=== PATIENT | male | born 1955 | race Caucasian/White ===

== ENCOUNTER 2023-07-24 13:51 | Inpatient (IN) | payer MEDICARE, OTHER ==
--- NOTE | 2023-07-24 14:16 | ED ---
General Adult HPI - General Chief complaint: Arrhythmia/Palpitations Stated complaint: Heart Palpitations Time Seen by Provider: 07/24/23 14:00 Source: patient, RN notes reviewed, old records reviewed Mode of arrival: ambulatory Limitations: no limitations - History of Present Illness Initial comments: This is a 67-year-old male with a past medical history significant for hemodialysis. Patient also has a history of atrial flutter. Patient comes in t [facility] because he went to dialysis when he got home his heart rate was fast and he was feeling little bit short of breath. Patient took his medicines and heart rate did not come down so he came to the emergency department. Patient states he still feels his heart racing and as well has some shortness of breath but patient has any chest pain. Patient denies any abdominal pain. Patient states he does have diarrhea and has had diarrhea for the last for 5 days. Patient denies any headache patient denies numbness or weakness. Patient Nuys lightheadedness or dizziness. - Related Data Home Medications Medication Instructions Recorded Confirmed Aspirin EC [Ecotrin Low Dose] 81 mg PO DAILY 07/24/23 07/24/23 Atorvastatin [Lipitor] 10 mg PO HS 07/24/23 07/24/23 Cyanocobalamin [Vitamin B-12] 500 mcg PO DAILY 07/24/23 07/24/23 Gabapentin [Neurontin] 200 mg PO TID 07/24/23 07/24/23 Omeprazole [PriLOSEC] 20 mg PO BID 07/24/23 07/24/23 Patiromer Calcium Sorbitex 1 packet PO SUTUTHSA 07/24/23 07/24/23 [Veltassa] Sevelamer Carbonate 1,600 mg PO TID 07/24/23 07/24/23 Sodium Bicarbonate Tab 650 mg PO BID 07/24/23 07/24/23 Tamsulosin [Flomax] 0.4 mg PO HS 07/24/23 07/24/23 dilTIAZem HCL [dilTIAZem HCL 24Hr 300 mg PO DAILY@1630 07/24/23 07/24/23 ER (Tiazac)] Allergies Allergy/AdvReac Type Severity Reaction Status Date / Time No Known Allergies Allergy Verified 07/24/23 14:44 Review of Systems ROS Statement: Those systems with pertinent positive or pertinent negative responses have been documented in the HPI. ROS Other: All systems not noted in ROS Statement are negative. Past Medical History Past Medical History: Dialysis History of Any Multi-Drug Resistant Organisms: None Reported Past Surgical History: No Surgical Hx Reported Past Psychological History: No Psychological Hx Reported Smoking Status: Current every day smoker Past Alcohol Use History: None Reported Past Drug Use History: None Reported General Exam - General Exam Comments Initial Comments: GENERAL: Patient is well-developed and well-nourished. Patient is nontoxic and well- hydrated and is in mild distress. ENT: Neck is soft and supple. No significant lymphadenopathy is noted. Oropharynx i s clear. Moist mucous membranes. Neck has full range of motion without eliciting any pain. EYES: The sclera were anicteric and conjunctiva were pink and moist. Extraocular movements were intact and pupils were equal round and reactive to light. Eyelids were unremarkable. PULMONARY: Unlabored respirations. Good breath sounds bilaterally. No audible rales rhonchi or wheezing was noted. CARDIOVASCULAR: Patient is tachycardic at about 160 beats a minute ABDOMEN: Soft and nontender with normal bowel sounds. SKIN: Skin is clear with no lesions or rashes and otherwise unremarkable. NEUROLOGIC: Patient is alert and oriented x3. Cranial nerves II through XII are grossly intact. Motor and sensory are also intact. Normal speech, volume and content. Symmetrical smile. MUSCULOSKELETAL: Normal extremities with adequate strength and full range of motion. No lower extremity swelling or edema. No calf tenderness. LYMPHATICS: No significant lymphadenopathy is noted PSYCHIATRIC: Normal psychiatric evaluation. Limitations: no limitations Course Vital Signs 07/24/23 07/24/23 07/24/23 13:53 14:33 14:58 Temperature 98.5 F Pulse Rate 92 160 H 160 H Respiratory 24 18 18 Rate Blood Pressure 110/75 113/95 122/95 O2 Sat by Pulse 99 95 95 Oximetry 07/24/23 15:07 Temperature Pulse Rate 130 H Respiratory 18 Rate Blood Pressure 97/75 O2 Sat by Pulse Oximetry Medical Decision Making - Medical Decision Making EKG is interpreted by myself EKG shows atrial flutter 160 bpm QRS is 88 QT interval is 258 QTc is 347. Patient's EKG shows ST segment elevation and aVR Was pt. sent in by a medical professional or institution (, PA, BOND CLERK, urgent care, hospital, or fci...) When possible be specific @ -No Did you speak to anyone other than the patient for history (EMS, parent, family, police, friend...)? What history was obtained from this source @ -Patient's sister gives almost all of the history Did you review nursing and triage notes (agree or disagree)? Why? @ -I reviewed and agree with nursing and triage notes Were old charts reviewed (outside hosp., previous admission, EMS record, old EK G, old radiological studies, urgent care reports/EKG's, fci records)? Report findings @ -No Differential Diagnosis (chest pain, altered mental status, abdominal pain women, abdominal pain men, vaginal bleeding, weakness, fever, dyspnea, syncope, headache, dizziness, GI bleed, back pain, seizure, CVA, palpatations, mental health, musculoskeletal)? @ -Differential Palpitations Ventricular arrhythmias, atrial arrhythmias, myocardial infarction, anemia, thyrotoxicosis, electrolyte imbalance, hypokalemia, pulmonary embolism, pulmonary disease, drugs, alcohol, anxiety, stress.... This is not meant to be an all-inclusive list. EKG interpreted by me (3pts min.). @ -As above X-rays interpreted by me (1pt min.). @ -Chest x-ray shows some mediastinal widening possible adenopathy mass adherent CT interpreted by me (1pt min.). @ -None done U/S interpreted by me (1pt. min.). @ -None done What testing was considered but not performed or refused? (CT, X-rays, U/S, labs)? Why? @ -None What meds were considered but not given or refused? Why? @ -None Did you discuss the management of the patient with other professionals (professionals i.e. , PA, BOND CLERK, lab, RT, psych nurse, neonatal social worker, hvac specialist, teacher, seismology technical officer, sample case porter)? Give summary @ -I spoke with sound physicians and physicians agreed to admit the patient Was smoking cessation discussed for >3mins.? @ -No Was critical care preformed (if so, how long)? @ -35 minutes Were there social determinants of health that impacted care today? How? (Homelessness, low income, unemployed, alcoholism, drug addiction, transportat ion, low edu. Level, literacy, decrease access to med. care, senior care, rehab)? @ -No Was there de-escalation of care discussed even if they declined (Discuss DNR or withdrawal of care, Hospice)? DNR status @ -No What co-morbidities impacted this encounter? (DM, HTN, Smoking, COPD, CAD, Cancer, CVA, ARF, Chemo, Hep., AIDS, mental health diagnosis, sleep apnea, morbid obesity)? @ -None Was patient admitted / discharged? Hospital course, mention meds given and route, prescriptions, significant lab abnormalities, going to OR and other pertinent info. @ -Patient was started on a Cardizem drip and also started on heparin. Patient's heart rate was 160 came down to about 120 after a bolus and a drip for about an hour. Patient was feeling better. Patient is going to be admitted to [facility] physicians and I will consult cardiology Undiagnosed new problem with uncertain prognosis? @ -No Drug Therapy requiring intensive monitoring for toxicity (Heparin, Nitro, Insulin, Cardizem)? @ -No Were any procedures done? @ -No Diagnosis/symptom? @ -Atrial flutter with rapid ventricular response Acute, or Chronic, or Acute on Chronic? @ -Acute Uncomplicated (without systemic symptoms) or Complicated (systemic symptoms)? @ -Complicated Side effects of treatment? @ -No Exacerbation, Progression, or Severe Exacerbation? @ -No Poses a threat to life or bodily function? How? (Chest pain, [place], [place], pneumonia, PE, COPD, DKA, ARF, appy, cholecystitis, CVA, Diverticulitis, Homicidal, Suicidal, threat to staff... and all critical care pts) @ -Yes this can lead to poor perfusion and endorgan dysfunction - Lab Data Result diagrams: 07/24/23 14:14 07/24/23 14:14 Lab Results 07/24/23 07/24/23 07/24/23 Range/Units 14:14 14:14 14:14 WBC 8.4 (3.8-10.6) k/uL RBC 3.93 L (4.30-5.90) m/uL Hgb 11.6 L (13.0-17.5) gm/dL Hct 34.1 L (39.0-53.0) % MCV 86.9 (80.0-100.0) fL MCH 29.5 (25.0-35.0) pg MCHC 34.0 (31.0-37.0) g/dL RDW 14.2 (11.5-15.5) % Plt Count 261 (150-450) k/uL MPV 7.1 Neutrophils % 73 % Lymphocytes % 14 % Monocytes % 10 % Eosinophils % 1 % Basophils % 0 % Neutrophils # 6.1 (1.3-7.7) k/uL Lymphocytes # 1.2 (1.0-4.8) k/uL Monocytes # 0.9 (0-1.0) k/uL Eosinophils # 0.1 (0-0.7) k/uL Basophils # 0.0 (0-0.2) k/uL PT (10.0-12.5) sec INR (<1.2) APTT (22.0-30.0) sec Sodium 138 (137-145) mmol/L Potassium 3.9 (3.5-5.1) mmol/L Chloride 98 (98-107) mmol/L Carbon Dioxide 28 (22-30) mmol/L Anion Gap 12 mmol/L BUN 43 H (9-20) mg/dL Creatinine 5.96 H (0.66-1.25) mg/dL Est GFR (CKD-EPI)AfAm 11 (>60 ml/min/1.73 sqM) Est GFR (CKD-EPI)NonAf 9 (>60 ml/min/1.73 sqM) Glucose 117 H (74-99) mg/dL Calcium 8.1 L (8.4-10.2) mg/dL Magnesium 1.8 (1.6-2.3) mg/dL Total Bilirubin 0.5 (0.2-1.3) mg/dL AST 28 (17-59) U/L ALT 24 (4-49) U/L Alkaline Phosphatase 107 (38-126) U/L Troponin I 0.072 H* (0.000-0.034) ng/mL Total Protein 6.7 (6.3-8.2) g/dL Albumin 3.7 (3.5-5.0) g/dL 07/24/23 Range/Units 14:56 WBC (3.8-10.6) k/uL RBC (4.30-5.90) m/uL Hgb (13.0-17.5) gm/dL Hct (39.0-53.0) % MCV (80.0-100.0) fL MCH (25.0-35.0) pg MCHC (31.0-37.0) g/dL RDW (11.5-15.5) % Plt Count (150-450) k/uL MPV Neutrophils % % Lymphocytes % % Monocytes % % Eosinophils % % Basophils % % Neutrophils # (1.3-7.7) k/uL Lymphocytes # (1.0-4.8) k/uL Monocytes # (0-1.0) k/uL Eosinophils # (0-0.7) k/uL Basophils # (0-0.2) k/uL PT 10.2 (10.0-12.5) sec INR 0.9 (<1.2) APTT 25.8 (22.0-30.0) sec Sodium (137-145) mmol/L Potassium (3.5-5.1) mmol/L Chloride (98-107) mmol/L Carbon Dioxide (22-30) mmol/L Anion Gap mmol/L BUN (9-20) mg/dL Creatinine (0.66-1.25) mg/dL Est GFR (CKD-EPI)AfAm (>60 ml/min/1.73 sqM) Est GFR (CKD-EPI)NonAf (>60 ml/min/1.73 sqM) Glucose (74-99) mg/dL Calcium (8.4-10.2) mg/dL Magnesium (1.6-2.3) mg/dL Total Bilirubin (0.2-1.3) mg/dL AST (17-59) U/L ALT (4-49) U/L Alkaline Phosphatase (38-126) U/L Troponin I (0.000-0.034) ng/mL Total Protein (6.3-8.2) g/dL Albumin (3.5-5.0) g/dL Critical Care Time Critical Care Time: Yes Total Critical Care Time: 35 Disposition Clinical Impression: Atrial flutter with rapid ventricular response, Elevated troponin Disposition: ADMITTED IP TO THIS HOSP Referrals: Maddie Snyder MD [Primary Care Provider] - 1-2 days Time of Disposition: 15:18
[2023-07-24] MEDS: DILTIAZEM 125 MG in SODIUM CHLORIDE 0.9% 100 ML IV SCH (14:26)
[2023-07-24] MEDS: DILTIAZEM DRIP BOLUS FROM BAG 1 MG SOLN IV ONE (14:27)
[2023-07-24] MEDS: SODIUM CHLORIDE 0.9% 500 ML 500 ML IV STA (14:32)
--- NOTE | 2023-07-24 14:33 | XR ---
EXAMINATION TYPE: XR chest 2V DATE OF EXAM: 07/24/2023 COMPARISON: NONE TECHNIQUE: PA and lateral views submitted. HISTORY: Dysrhythmia and cough FINDINGS: The lungs are clear and there is no pneumothorax, pleural effusion, or focal pneumonia. Heart size normal and no overt failure. Osseous structures demonstrate hypertrophic and degenerative changes of the spine. Prominence of the upper right mediastinum. Coarsened interstitium. IMPRESSION: 1. Correlate for bronchitis or mild interstitial pneumonitis. 2. Prominent right upper mediastinum underlying mass or adenopathy or aortic aneurysm in the differen tial diagnosis. Recommend short-term follow-up CT chest. Process.
[2023-07-24 14:34] LABS: Basophils % (A) 0 %; Eosinophils # (A) 0.1 k/uL (0-0.7); Eosinophils % (A) 1 %; HCT 34.1 % (39.0-53.0); HGB 11.6 gm/dL (13.0-17.5); Lymphocytes # (A) 1.2 k/uL (1.0-4.8); Lymphocytes % (A) 14 %; MCH 29.5 pg (25.0-35.0); MCV 86.9 fL (80.0-100.0); Mean Platelet Volume 7.1; Monocytes # (A) 0.9 k/uL (0-1.0); Monocytes % (A) 10 %; Neutrophils # (A) 6.1 k/uL (1.3-7.7); Neutrophils % (A) 73 %; Platelet Count 261 k/uL (150-450); RBC 3.93 m/uL (4.30-5.90); RDW 14.2 % (11.5-15.5); WBC 8.4 k/uL (3.8-10.6)
[2023-07-24] MEDS: HEPARIN SODIUM 1,000 UN/ML (10ML VL) IV ONE (14:49)
[2023-07-24 14:51] LABS: ALT 24 U/L (4-49); AST 28 U/L (17-59); African American GFR (CKD) 11 (>60 ml/min/1.73 sqM); Albumin 3.7 g/dL (3.5-5.0); Alkaline Phosphatase 107 U/L (38-126); Anion Gap 12 mmol/L; Blood Urea Nitrogen 43 mg/dL (9-20); Calcium 8.1 mg/dL (8.4-10.2); Carbon Dioxide 28 mmol/L (22-30); Chloride 98 mmol/L (98-107); Glucose 117 mg/dL (74-99); Magnesium 1.8 mg/dL (1.6-2.3); Non-African American GFR(CKD) 9 (>60 ml/min/1.73 sqM); Potassium 3.9 mmol/L (3.5-5.1); Sodium 138 mmol/L (137-145); Total Bilirubin 0.5 mg/dL (0.2-1.3); Total Protein 6.7 g/dL (6.3-8.2)
[2023-07-24] MEDS: HEPARIN SOD,PORK IN 0.45% NACL 25,000 UNIT in 0.45% NACL 1 250ML.BAG IV SCH (14:51)
[2023-07-24 15:14] LABS: INR 0.9 (<1.2); Partial Thromboplastin Time 25.8 sec (22.0-30.0); Prothrombin Time 10.2 sec (10.0-12.5)
[2023-07-24] MEDS ORDERED: NITROGLYCERIN SL TABS 0.4 MG TAB SUBLINGUAL PRN (15:18)
[2023-07-24] MEDS ORDERED: DILTIAZEM 5 MG/ML 5 ML VIAL IVP STA (16:54)
[2023-07-24] MEDS: DILTIAZEM DRIP BOLUS FROM BAG 1 MG SOLN IV STA (17:00)
--- NOTE | 2023-07-24 17:11 | P.HPIM ---
History of Present Illness H&P Date: 07/24/23 67 year old M with PMH of ESRD, A-Fib not on AC, peripheral neuropathy, BPH, GERD, HLD presents to the ED. Went to HD today, felt SOB with palpitations, found to be tachycardic, session terminated one hour early, sent home on a bus. Sister Lizbeth noted he was feeling unwell and called EMS. He does report diarrhea that started last Monday. He denies any chest pain or lightheadedness. 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 Recently had an Echo done in June. Plans to undergo EGD and C-scope in September. In the ED he underwent extensive evaluation. BP 113/95, HR 160, RR 18, T 98.5F, 95% on RA. CBC, coag panel, CMP was done significant for Hg 11.6 Hct 34.1, BUN 43, Cr 5.96, glu 117, Ca 8.1. Mag 1.8. Troponin 0.072. EKG atrial flutter. TSH 0.723. CXR showed bronchitis or mild interstitial pneumonitis, prominent right upper mediastinum recommending short term follow up CT. Patient is admitted for Atrial flutter. General: non toxic, no distress, appears at stated age Derm: warm, dry Head: atraumatic, normocephalic, symmetric Eyes: EOMI, no lid lag, anicteric sclera Mouth: no lip lesion, mucus membranes moist Cardiovascular: S1S2 irregular, no murmur Lungs: Decreased BS bilateral, no rhonchi, no rales , no accessory muscle use Ext: no gross muscle atrophy, no edema, no contractures Neuro: no focal neuro deficits Psych: Alert, oriented, appropriate affect Based on my assessment of this patient, this patient meets a high complexity level of care. Patient has an acute diagnosis of atrial flutter that poses a threat to life or bodily function. Atrial flutter: Start Cardizem drip at 10 mg/hr and titrate. Started on heparin drip at 12 units/kg/hr. Telemetry monitoring. 2g Mag sulfate ordered. Cardiology consult. Troponin elevation: Likely demand ischemia. Trend Trop/EKG to rule out ACS. ASA 81 mg PO QD. Lipitor 10 mg PO QHS. Diarrhea: Obtain COVID 19 test. Supportive management. ESRD on HD MWF: Nephrology consult to initiate HD. CODE STATUS: FULL CODE. DVT Prophylaxis: Heparin drip GI Prophylaxis: Prilosec Designated medical POA if patient is not able to make medical decisions for themselves: Lizbeth (sister) I have reviewed the following lead consultant notes: ED. I have reviewed the results of the following tests: As above I have ordered the following tests: As above. I have discussed the care of this patient with the following independent historian: I have independently interpreted the following test below: EKG. I have discussed the management of this patient with the following physician: Past Medical History Past Medical History: Dialysis History of Any Multi-Drug Resistant Organisms: None Reported Past Surgical History: No Surgical Hx Reported Past Psychological History: No Psychological Hx Reported Smoking Status: Current every day smoker Past Alcohol Use History: None Reported Past Drug Use History: None Reported Medications and Allergies Home Medications Medication Instructions Recorded Confirmed Type Aspirin EC [Ecotrin Low Dose] 81 mg PO DAILY 07/24/23 07/24/23 History Atorvastatin [Lipitor] 10 mg PO HS 07/24/23 07/24/23 History Cyanocobalamin [Vitamin B-12] 500 mcg PO DAILY 07/24/23 07/24/23 History Gabapentin [Neurontin] 200 mg PO TID 07/24/23 07/24/23 History Omeprazole [PriLOSEC] 20 mg PO BID 07/24/23 07/24/23 History Patiromer Calcium Sorbitex 1 packet PO SUTUTHSA 07/24/23 07/24/23 History [Veltassa] Sevelamer Carbonate 1,600 mg PO TID 07/24/23 07/24/23 History Sodium Bicarbonate Tab 650 mg PO BID 07/24/23 07/24/23 History Tamsulosin [Flomax] 0.4 mg PO HS 07/24/23 07/24/23 History dilTIAZem HCL [dilTIAZem HCL 24Hr 300 mg PO DAILY@1630 07/24/23 07/24/23 History ER (Tiazac)] Allergies Allergy/AdvReac Type Severity Reaction Status Date / Time No Known Allergies Allergy Verified 07/24/23 14:44 Physical Exam Vitals: Vital Signs Temp Pulse Resp BP Pulse Ox 07/24/23 16:43 168 H 20 103/82 96 07/24/23 16:04 165 H 20 95/84 07/24/23 15:49 88 18 90/68 96 07/24/23 15:07 130 H 18 97/75 07/24/23 14:58 160 H 18 122/95 95 07/24/23 14:33 160 H 18 113/95 95 07/24/23 13:53 98.5 F 92 24 110/75 99 Intake and Output 07/24/23 07/24/23 07/24/23 06:59 14:59 22:59 Intake Total 10.25 Balance 10.25 Intake: Intake, IV Titration 10.25 Amount Diltiazem 125 mg In 10.25 Sodium Chloride 0.9% 100 ml @ 5 MG/HR 5 mls/hr IV .Q24H [facility] Rx#:[id number] Other: Weight 77.111 kg Results CBC & Chem 7: 07/24/23 14:14 07/24/23 14:14 Labs: Abnormal Lab Results - Last 24 Hours (Table) 07/24/23 07/24/23 07/24/23 Range/Units 14:14 14:14 14:14 RBC 3.93 L (4.30-5.90) m/uL Hgb 11.6 L (13.0-17.5) gm/dL Hct 34.1 L (39.0-53.0) % BUN 43 H (9-20) mg/dL Creatinine 5.96 H (0.66-1.25) mg/dL Glucose 117 H (74-99) mg/dL Calcium 8.1 L (8.4-10.2) mg/dL Troponin I 0.072 H* (0.000-0.034) ng/mL
[2023-07-24] MEDS: METOPROLOL TARTRATE 5 MG/5 ML VIAL IVP STA (18:48)
[2023-07-24] MEDS: MAGNESIUM SULFATE-D5W PMX 1 GM in DEXTROSE/WATER 1 100ML.BAG IVPB SCH (18:55)
[2023-07-24] MEDS: PANTOPRAZOLE 40 MG TABLET PO SCH (20:23)
[2023-07-24] MEDS: SODIUM BICARBONATE TAB 650 MG TAB PO SCH (20:23)
[2023-07-24] MEDS: ATORVASTATIN 10 MG TAB PO SCH (20:23)
[2023-07-24] MEDS: TAMSULOSIN 0.4 MG CAP.ER.24H PO SCH (20:24)
[2023-07-24] MEDS: SEVELAMER 800 MG TAB PO SCH (21:07)
[2023-07-24] MEDS: GABAPENTIN 100 MG CAP PO SCH (21:08)
[2023-07-24] MEDS: HEPARIN SODIUM 1,000 UN/ML (10ML VL) IV PRN (22:59)
[2023-07-25] MEDS: METOPROLOL TARTRATE 25 MG TAB PO STA (08:10)
[2023-07-25] MEDS: ASPIRIN 81 MG PO SCH (08:10)
[2023-07-25 08:32] LABS: Basophils % (A) 0 %; Eosinophils # (A) 0.1 k/uL (0-0.7); Eosinophils % (A) 1 %; HCT 32.6 % (39.0-53.0); HGB 10.8 gm/dL (13.0-17.5); Lymphocytes # (A) 1.3 k/uL (1.0-4.8); Lymphocytes % (A) 16 %; MCH 29.5 pg (25.0-35.0); MCHC 33.1 g/dL (31.0-37.0); MCV 89.1 fL (80.0-100.0); Mean Platelet Volume 7.7; Monocytes # (A) 0.7 k/uL (0-1.0); Monocytes % (A) 8 %; Neutrophils # (A) 5.7 k/uL (1.3-7.7); Neutrophils % (A) 71 %; Platelet Count 273 k/uL (150-450); RBC 3.66 m/uL (4.30-5.90); RDW 14.5 % (11.5-15.5)
[2023-07-25] MEDS ORDERED: ASPIRIN 325 MG TAB PO SCH (09:00)
[2023-07-25] MEDS: PATIROMER CALCIUM SORBITEX 8.4 GM PO SCH (09:23)
[2023-07-25] MEDS ORDERED: CAFFEINE CITRATE 60 MG/3 ML VIAL IV PRN (10:04)
[2023-07-25] MEDS ORDERED: REGADENOSON 0.4 MG/5 ML SYRINGE IV PRN (10:04)
[2023-07-25] MEDS ORDERED: AMINOPHYLLINE 500 MG/20 ML VIAL IV PRN (10:04)
[2023-07-25 10:42] LABS: African American GFR (CKD) 7 (>60 ml/min/1.73 sqM); Anion Gap 9 mmol/L; Blood Urea Nitrogen 50 mg/dL (9-20); Calcium 8.7 mg/dL (8.4-10.2); Carbon Dioxide 28 mmol/L (22-30); Chloride 102 mmol/L (98-107); Glucose 98 mg/dL (74-99); Non-African American GFR(CKD) 6 (>60 ml/min/1.73 sqM); Potassium 4.3 mmol/L (3.5-5.1); Sodium 139 mmol/L (137-145)
[2023-07-25] MEDS: DILTIAZEM CD 180 MG CAP.ER.24H PO SCH (10:47)
--- NOTE | 2023-07-25 10:53 | P.CRDCN ---
History of Present Illness History of present illness: HISTORY OF PRESENT ILLNESS: This is a 67-year-old male with a past medical history significant for end-stage renal disease on hemodialysis, hypertension, hyperlipidemia, and paroxysmal at rial fibrillation. Patient follows in the office with Dr. Blandon. We have been asked to see the patient in consultation for atrial flutter. Patient examined at the bedside in the ER. Patient states his sister sent him to the hospital. Patient does not remember why he came to the ER. He denied having any chest pain or pressure. He reports mild shortness of breath. He reports getting frequent headaches. Patient was found to be in atrial flutter with RVR. He was started on IV Heparin and IV Cardizem. He remains on Cardizem at 10mg/hr. He denies any issues of previous GI bleeding. He reports occasional rectal bleeding with bowel movements. According to cardiology office records, the patient previously saw a facing end trimmer at [facility] in [place]. The decision was made by his previous facing end trimmer not to anticoagulate him but instead placed him on a aspirin daily. He also apparently had a cardiac catheterization in the past which did not reveal any significant CAD however records of this are unavailable at this time. Additionally, the patient does have a family history of hypertrophic cardiomyopathy. His brother from hypertrophic cardiomyopathy and his sister also has it and is being followed by a physician out of [facility]. DIAGNOSTICS: - EKG reveals atrial flutter with RVR. - Chest xray correlate for bronchitis or mild interstitial pneumonitis. Prominent right upper mediastinum underlying mass or adenopathy or aortic aneurysm in the differential diagnosis. - Laboratory data: WBC 8.4. Hemoglobin 11.6. Platelet count 261. Sodium 138. Potassium 3.9. BUN 43. Creatinine 5.96. Magnesium 1.8. TSH 0.723. Troponin 0.072. 0.132. 0.205 - Current home cardiac medications include aspirin 81 mg daily, Cardizem 300 mg daily, and Lipitor 10 mg at night. REVIEW OF SYSTEMS: At the time of my exam: CONSTITUTIONAL: Denies fever or chills. HEENT: Denies blurred vision, vision changes, or eye pain. Denies hemoptysis CARDIOVASCULAR: Denies chest pain. Denies orthopnea. Denies PND. Denies palpitations RESPIRATORY: Denies shortness of breath. GASTROINTESTINAL: Denies abdominal pain. Denies nausea or vomiting. HEMATOLOGIC: Denies bleeding disorders. GENITOURINARY: Denies any blood in urine. SKIN: Denies pruitis. Denies rash. PHYSICAL EXAM: VITAL SIGNS: Reviewed. GENERAL: Well-developed in no acute distress. HEENT: Head is normocephalic. Pupils are equal, round. Sclerae anicteric. Mucous membranes of the mouth are moist. Neck supple. No JVD or thyromegaly LUNGS: Respirations even and unlabored. Lungs essentially clear to auscultation bilaterally. HEART: Tachycardic. Regular rate and rhythm. S1 and S2 heard. ABDOMEN: Soft. Nondistended. Nontender. EXTREMITIES: Normal range of motion. No clubbing or cyanosis. Peripheral pulses intact. No lower extremity edema NEUROLOGIC: Awake and alert. Oriented x 3. ASSESSMENT: New onset typical atrial flutter with RVR History of paroxysmal atrial fibrillation, not anticoagulated on an outpatient basis by decision of previous cardiology in [place] Abnormal troponins, Type I versus Type II DC End-stage renal disease on hemodialysis Hypertension Hyperlipidemia Family history of hypertrophic cardiomyopathy History of PFO, per patient PLAN: Obtain 2D echo to assess cardiac structure and function Resume oral Cardizem. Increase dose to 360mg. Wean off Cardizem infusion Continue IV Heparin for now. Will transition to oral anticoagulation pending Lexiscan results Discussed cardiac cath versus stress testing with patient. Patient to undergo Lexiscan stress today. Discussed with patients sister via phone. Obtain records of cardiac catheterization performed at [facility] Further recommendations pending patient course Nurse practitioner note has been reviewed by physician. Signing provider agrees with the documented findings, assessment, and plan of care documented by CONSUMER ANALYST as a scribe. Past Medical History Past Medical History: Dialysis History of Any Multi-Drug Resistant Organisms: None Reported Past Surgical History: No Surgical Hx Reported Past Psychological History: No Psychological Hx Reported Smoking Status: Current every day smoker Past Alcohol Use History: None Reported Past Drug Use History: None Reported Medications and Allergies Home Medications Medication Instructions Recorded Confirmed Type Aspirin EC [Ecotrin Low Dose] 81 mg PO DAILY 07/24/23 07/24/23 History Atorvastatin [Lipitor] 10 mg PO HS 07/24/23 07/24/23 History Cyanocobalamin [Vitamin B-12] 500 mcg PO DAILY 07/24/23 07/24/23 History Gabapentin [Neurontin] 200 mg PO TID 07/24/23 07/24/23 History Omeprazole [PriLOSEC] 20 mg PO BID 07/24/23 07/24/23 History Patiromer Calcium Sorbitex 1 packet PO SUTUTHSA 07/24/23 07/24/23 History [Veltassa] Sevelamer Carbonate 1,600 mg PO TID 07/24/23 07/24/23 History Sodium Bicarbonate Tab 650 mg PO BID 07/24/23 07/24/23 History Tamsulosin [Flomax] 0.4 mg PO HS 07/24/23 07/24/23 History dilTIAZem HCL [dilTIAZem HCL 24Hr 300 mg PO DAILY@1630 07/24/23 07/24/23 History ER (Tiazac)] Allergies Allergy/AdvReac Type Severity Reaction Status Date / Time No Known Allergies Allergy Verified 07/24/23 14:44 Physical Exam Vitals: Vital Signs Temp Pulse Resp BP Pulse Ox 07/25/23 07:00 149 H 106/56 07/25/23 06:10 147 H 19 106/56 96 07/25/23 02:04 101 H 19 101/67 07/25/23 01:48 100 24 96/62 100 07/25/23 00:34 83 19 106/64 07/24/23 21:05 98.9 F 79 18 115/63 95 07/24/23 20:08 84 20 93/65 07/24/23 20:00 84 18 93/65 97 07/24/23 18:57 84 18 95/45 96 07/24/23 18:23 106 H 18 99/80 96 07/24/23 17:15 115 H 20 97/65 95 07/24/23 16:57 134 H 18 109/85 97 07/24/23 16:43 168 H 20 103/82 96 07/24/23 16:04 165 H 20 95/84 07/24/23 15:49 88 18 90/68 96 07/24/23 15:07 130 H 18 97/75 07/24/23 14:58 160 H 18 122/95 95 07/24/23 14:33 160 H 18 113/95 95 07/24/23 13:53 98.5 F 92 24 110/75 99 Intake and Output 07/24/23 07/25/23 07/25/23 22:59 06:59 14:59 Intake Total 10.25 75.566 64.75 Balance 10.25 75.566 64.75 Intake: Intake, IV Titration 10.25 75.566 64.75 Amount Diltiazem 125 mg In 10. 64.75 Sodium Chloride 0.9% 100 ml @ 5 MG/HR 5 mls/hr IV .Q24H [facility] Rx#:[id number] Heparin Sod,Pork in 0.45% 75.566 NaCl 25,000 unit In 0.45 % NaCl 1 250ml.bag @ 12 UNITS/KG/HR 9.253 mls/hr IV .Q24H [facility] Rx#: [id number] Results 07/25/23 07:45 07/25/23 07:45 Cardiac Enzymes 07/24/23 07/24/23 07/24/23 Range/Units 14:14 14:14 16:54 AST 28 (17-59) U/L Troponin I 0.072 H* 0.132 H* (0.000-0.034) ng/mL 07/24/23 Range/Units 19:25 AST (17-59) U/L Troponin I 0.205 H* (0.000-0.034) ng/mL Coagulation 07/24/23 07/24/23 Range/Units 14:56 21:47 PT 10.2 (10.0-12.5) sec APTT 25.8 35.3 H (22.0-30.0) sec CBC 07/24/23 Range/Units 14:14 WBC 8.4 (3.8-10.6) k/uL RBC 3.93 L (4.30-5.90) m/uL Hgb 11.6 L (13.0-17.5) gm/dL Hct 34.1 L (39.0-53.0) % Plt Count 261 (150-450) k/uL Comprehensive Metabolic Panel 07/24/23 Range/Units 14:14 Sodium 138 (137-145) mmol/L Potassium 3.9 (3.5-5.1) mmol/L Chloride 98 (98-107) mmol/L Carbon Dioxide 28 (22-30) mmol/L BUN 43 H (9-20) mg/dL Creatinine 5.96 H (0.66-1.25) mg/dL Glucose 117 H (74-99) mg/dL Calcium 8.1 L (8.4-10.2) mg/dL AST 28 (17-59) U/L ALT 24 (4-49) U/L Alkaline Phosphatase 107 (38-126) U/L Total Protein 6.7 (6.3-8.2) g/dL Albumin 3.7 (3.5-5.0) g/dL Current Medications Generic Name Dose Route Start Last Admin Trade Name Freq PRN Reason Stop Dose Admin Aspirin 81 mg 07/25/23 09:00 Aspirin 81 Mg PO DAILY [facility] Atorvastatin Calcium 10 mg 07/24/23 21:00 07/24/23 20:23 Atorvastatin 10 Mg Tab PO 10 mg HS [facility] Administration Gabapentin 200 mg 07/24/23 22:00 07/24/23 21:08 Gabapentin 100 Mg Cap PO 200 mg TID [facility] Administration Heparin Sodium (Porcine) 0 unit 07/24/23 22:53 07/24/23 22:59 Heparin Sodium 1,000 Un/Ml (10ml Vl) IV 1,927 unit PER PROTOCOL PRN Administration Low PTT Protocol Diltiazem HCl 125 mg/ Sodium 125 mls @ 5 mls/hr 07/24/23 14:15 07/25/23 07:38 Chloride IV 10 mg/hr .Q24H [facility] 10 mls/hr Infusion 5 MG/HR Heparin Sodium/Sodium Chloride 250 mls @ 9.253 mls/hr 07/24/23 14:15 07/24/23 23:01 25,000 unit/ Sodium Chloride IV 14 units/kg/hr .Q24H [facility] 10.796 mls/hr Titration Protocol 12 UNITS/KG/HR Nitroglycerin 0.4 mg 07/24/23 15:18 Nitroglycerin Sl Tabs 0.4 Mg Tab SUBLINGUAL Q5M PRN Chest Pain Patiromer Calcium 1 packet 07/25/23 09:00 Sorbitex [Veltassa] PO 8.4 Gm Packet SUTUTHSA [facility] Pantoprazole Sodium 40 mg 07/24/23 21:00 07/24/23 20:23 Pantoprazole 40 Mg Tablet PO 40 mg BID [facility] Administration Sevelamer Carbonate 1,600 mg 07/24/23 22:00 07/24/23 21:07 Sevelamer 800 Mg Tab PO 1,600 mg TID [facility] Administration Sodium Bicarbonate 650 mg 07/24/23 21:00 07/24/23 20:23 Sodium Bicarbonate Tab 650 Mg Tab PO 650 mg BID [facility] Administration Tamsulosin HCl 0.4 mg 07/24/23 21:00 07/24/23 20:24 Tamsulosin 0.4 Mg Cap.Er.24h PO 0.4 mg HS [facility] Administration Intake and Output 07/24/23 07/25/23 07/25/23 22:59 06:59 14:59 Intake Total 10.25 75.566 64.75 Balance 10.25 75.566 64.75 Intake: Intake, IV Titration 10.25 75.566 64.75 Amount Diltiazem 125 mg In 10.25 64.75 Sodium Chloride 0.9% 100 ml @ 5 MG/HR 5 mls/hr IV .Q24H [facility] Rx#:[id number] Heparin Sod,Pork in 0.45% 75.566 NaCl 25,000 unit In 0.45 % NaCl 1 250ml.bag @ 12 UNITS/KG/HR 9.253 mls/hr IV .Q24H [facility] Rx#: [id number] 07/24/23 14:14 07/24/23 14:14
[2023-07-25 11:42] LABS: Chol/HDL Ratio 3.38 Ratio; LDL Cholesterol,Calculated 50.7 mg/dL (0.0-131.0)
--- NOTE | 2023-07-25 12:18 | CA ---
Lexiscan Nuclear Stress Test Report Name: Nolberto Ellis Exam Date: 07/25/2023 11:38 Exam Location: [facility] Ht (in): 64 Wt (lb): 170 BSA: 1.83 Ordering Phys: Radha Turner NPC Referring Phys: RADHA TURNER Technologist: AVINASH GRANADOS Age: 67 Gender: M : 1955 Procedure CPT: Indications: Reflex order-Stress test ICD-10 Codes: Patient History: ANA MARÍA, PALP, FAMILY HX, NUMBNESS FACE/NECK, Medications: SEE CHART Meds past 24 hrs: Pretest Chest Pain: STRESS TEST Lexiscan Protocol Exercise Duration (min:sec): 01:[address] Depressions (mm): Angina Score: Woody Score: Resting HR (bpm): 147 Peak HR (bpm): 147 Resting BP (mmHg): 117 / 82 Peak BP (mmHg): 126 / 81 MPHR: 155 Target HR: 132 % MPHR: 95 METS: 1.0 Total Dose: Peak Dose: Atropine: Double Product: 10625 BP Response: Stress Termination: END OF DOSE Stress Symptoms: SOB Stress Summary: ECG ANALYSIS Resting ECG: Atrial flutter heart rate 147 beats a minute Stress EC mm ST segment depressions in inferolateral leads with Lexiscan infusion CONCLUSIONS Abnormal ECG response to Lexiscan infusion Normal hemodynamic and clinical response to Lexiscan infusion Baseline atrial flutter Please refer to the nuclear portion of the stress test for the complete interpretation of this study Dr Jf Steinberg (Electronically Signed) Final Date: 25 July 2023 12:17
--- NOTE | 2023-07-25 13:05 | NM ---
EXAMINATION TYPE: NM stress lexiscan cardiolite DATE OF EXAM: 07/25/2023 COMPARISON: NONE CLINICAL INDICATION: Male, 67 years old with history of CP; TECHNIQUE: After the intravenous administration of 8.6 mCi Tc 99m Sestamibi - Cardiolite resting SPE CT images acquired 45 minutes post injection. The patient received 0.4mg Lexiscan, 26.6 mCi Tc 99m Sestamibi - Stress images obtained [address] injection FINDINGS: Review of stress and rest SPECT images demonstrates matched perfusion abnormality involving the apica l lateral myocardium. Artifact limits assessment of the inferior wall.. Gated analysis shows normal wall motion with an estimated left ventricular ejection fraction of 53 %. IMPRESSION:. 1. Matched defect involving the apical lateral myocardium with no definite reversible area of ischemi a. Correlate clinically..
--- NOTE | 2023-07-25 13:39 | P.PN ---
Subjective Progress Note Date: 07/25/23 67 year old M with PMH of ESRD, A-Fib not on AC, peripheral neuropathy, BPH, GERD, HLD presents to the ED. Went to HD today, felt SOB with palpitations, found to be tachycardic, session terminated one hour early, sent home on a bus. Sister Lizbeth noted he was feeling unwell and called EMS. He does report diarrhea that started last Monday. He denies any chest pain or lightheadedness. Follows Dr. Blandon as his manager family. Recently had an Echo done in June. Plans to undergo EGD and C-scope in September. In the ED he underwent extensive evaluation. BP 113/95, HR 160, RR 18, T 98.5F, 95% on RA. CBC, coag panel, CMP was done significant for Hg 11.6 Hct 34.1, BUN 43, Cr 5.96, glu 117, Ca 8.1. Mag 1.8. Troponin 0.072. EKG atrial flutter. TSH 0.723. CXR showed bronchitis or mild interstitial pneumonitis, prominent right upper mediastinum recommending short term follow up CT. Patient is admitted for Atrial flutter. 07/24 Patient was seen and examined. Maintained on Heparin drip at 14 units/k g/hr. Restarted on PO Cardizem, drip discontinued. Underwent stress test, fixed defect. Plans for Echo and obtain records from [facility] per Cardiology. CBC Hg 10.8 Hct 32.6. APTT 39.2. BMP BUN 50 Cr 7.9. Troponin 0.132, 0.205. EKG done this morning shows atrial flutter with rate of [address] depression. General: non toxic, no distress, appears at stated age Derm: warm, dry Head: atraumatic, normocephalic, symmetric Eyes: EOMI, no lid lag, anicteric sclera Mouth: no lip lesion, mucus membranes moist Cardiovascular: S1S2 irregular, no murmur Lungs: Decreased BS bilateral, no rhonchi, no rales , no accessory muscle use Ext: no gross muscle atrophy, no edema, no contractures Neuro: no focal neuro deficits Psych: Alert, oriented, appropriate affect Based on my assessment of this patient, this patient meets a high complexity level of care. Patient has an acute diagnosis of atrial flutter that poses a threat to life or bodily function. Atrial flutter: Cardizem 320 mg PO QD. May need to be restarted on the drip since HR remains uncontrolled. Continue heparin drip at 14 units/kg/hr. Tel emetry monitoring. Echocardiogram ordered. Cardiology consult. Troponin elevation: Likely demand ischemia. Slowly uptrending. ASA 81 mg PO QD. Lipitor 10 mg PO QHS. Heparin drip as above. Stress test as above. Diarrhea: COVID 19 negative. ESRD on HD MWF: Nephrology consult to initiate HD. CODE STATUS: FULL CODE. DVT Prophylaxis: Heparin drip GI Prophylaxis: Prilosec Designated medical POA if patient is not able to make medical decisions for themselves: Lizbeth (sister) I have reviewed the following configuration consultant notes: Cardiology note. I have reviewed the results of the following tests: APTT. CBC, BMP. Troponin. I have ordered the following tests: Coag panel. I have discussed the care of this patient with the following independent historian: RN I have independently interpreted the following test below: EKG. I have discussed the management of this patient with the following physician: Objective - Vital Signs Vital signs: Vital Signs Temp 98.9 F 07/24/23 21:05 Pulse 149 H 07/25/23 07:00 Resp 19 07/25/23 06:10 BP 106/56 07/25/23 07:00 Pulse Ox 96 07/25/23 06:10 FiO2 Intake & Output 07/24/23 07/25/23 07/25/23 18:59 06:59 18:59 Intake Total 10.25 75.566 64.75 Balance 10.25 75.566 64.75 Weight 77.111 kg Intake: Intake, IV Titration 10.25 75.566 64.75 Amount Diltiazem 125 mg In 10.25 64.75 Sodium Chloride 0.9% 100 ml @ 5 MG/HR 5 mls/hr IV .Q24H [facility] Rx#:[id number] Heparin Sod,Pork in 0.45% 75.566 NaCl 25,000 unit In 0.45 % NaCl 1 250ml.bag @ 12 UNITS/KG/HR 9.253 mls/hr IV .Q24H [facility] Rx#: [id number] - Labs CBC & Chem 7: 07/25/23 07:45 07/25/23 07:45 Labs: Abnormal Lab Results - Last 24 Hours (Table) 07/24/23 07/24/23 07/24/23 Range/Units 14:14 14:14 14:14 RBC 3.93 L (4.30-5.90) m/uL Hgb 11.6 L (13.0-17.5) gm/dL Hct 34.1 L (39.0-53.0) % APTT (22.0-30.0) sec BUN 43 H (9-20) mg/dL Creatinine 5.96 H (0.66-1.25) mg/dL Glucose 117 H (74-99) mg/dL Calcium 8.1 L (8.4-10.2) mg/dL Troponin I 0.072 H* (0.000-0.034) ng/mL 07/24/23 07/24/23 07/24/23 Range/Units 16:54 19:25 21:47 RBC (4.30-5.90) m/uL Hgb (13.0-17.5) gm/dL Hct (39.0-53.0) % APTT 35.3 H (22.0-30.0) sec BUN (9-20) mg/dL Creatinine (0.66-1.25) mg/dL Glucose (74-99) mg/dL Calcium (8.4-10.2) mg/dL Troponin I 0.132 H* 0.205 H* (0.000-0.034) ng/mL 07/25/23 Range/Units 07:45 RBC (4.30-5.90) m/uL Hgb (13.0-17.5) gm/dL Hct (39.0-53.0) % APTT 39.2 H (22.0-30.0) sec BUN (9-20) mg/dL Creatinine (0.66-1.25) mg/dL Glucose (74-99) mg/dL Calcium (8.4-10.2) mg/dL Troponin I (0.000-0.034) ng/mL
[2023-07-25] MEDS ORDERED: HEPARIN SODIUM 1,000 UN/ML (10ML VL) IV PRN (14:56)
[2023-07-25] MEDS: HEPARIN SOD,PORK IN 0.45% NACL 25,000 UNIT in 0.45% NACL 1 250ML.BAG IV SCH (15:14)
[2023-07-25] MEDS: METOPROLOL TARTRATE 25 MG TAB PO SCH (15:16)
--- NOTE | 2023-07-25 17:53 | CA ---
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 67 - 155 / 56 - 104 cm??? LV Systolic Volume MOD BP 44.1 cm??? 22 - 58 / 19 - 49 cm??? LV Ejection Fraction MOD BP 62.9 % >= 55 % LV Cardiac Index MOD BP 2895.3 cm???/min???m??? LV Diastolic Volume MOD 4C 111.7 cm??? LV Systolic Volume MOD 4C 40.1 cm??? LV Ejection Fraction MOD 4C 64.1 % LV Cardiac Index MOD 4C 2767.0 cm???/min???m??? LV Diastolic Length 4C 8.4 cm LV Systolic Length 4C 7.0 cm LV Diastolic Volume MOD 2C 125.0 cm??? LV Systolic Volume MOD 2C 45.9 cm??? LV Ejection Fraction MOD 2C 63.3 % LV Cardiac Index MOD 2C 3054.6 cm???/min???m??? LV Diastolic Length 2C 8.6 cm LV Systolic Length 2C 6.6 cm LA Volume 64.5 cm??? 18 - 58 / 22 - 52 cm??? LA Volume Index 34.2 cm???/m??? 16 - 28 cm???/m??? Ascending Aorta Diameter 3.4 cm DOPPLER AV Peak Velocity 148.2 cm/s AV Peak Gradient 8.8 mmHg AV Mean Velocity 107.6 cm/s AV Mean Gradient 5.0 mmHg AV Velocity Time Integral 27.6 cm LVOT Peak Velocity 109.8 cm/s LVOT Peak Gradient 4.8 mmHg LVOT Velocity Time Integral 18.8 cm LVOT Stroke Volume 70.8 cm??? LVOT Stroke Volume Index 38.8 ml/m??? LVOT Cardiac Index 2734.3 cm???/min???m??? AV Area Cont Eq vti 2.6 cm??? AV Area Cont Eq pk 2.8 cm??? Mitral E Point Velocity 115.0 cm/s Mitral A Point Velocity 77.8 cm/s Mitral E to A Ratio 1.5 MV Deceleration Time 148.7 ms MV E' Velocity 8.0 cm/s Mitral E to MV E' Ratio 14.3 PV Peak Velocity 100.0 cm/s PV Peak Gradient 4.0 mmHg FINDINGS Left Ventricle Left ventricular ejection fraction is estimated at 60-65 %. Left ventricular cavity size normal. Left ventricular wall thickness normal. No obvious regional wall motion abnormalities. Right Ventricle Normal right ventricular size and function. Unable to estimate right ventricular systolic pressure. Right Atrium Normal right atrial size. Left Atrium Mildly increased left atrial volume. Mildly increased left atrial area. Mitral Valve Structurally normal mitral valve. No evidence for mitral valve prolapse. No mitral stenosis. Mild mitral regurgitation. Aortic Valve Trileaflet aortic valve. No aortic stenosis. Mild aortic regurgitation. Tricuspid Valve Structurally normal tricuspid valve. No tricuspid stenosis. Trace tricuspid regurgitation. Pulmonic Valve Pulmonic valve not well visualized. No pulmonic stenosis. Trace pulmonic regurgitation. Pericardium No pericardial effusion. Aorta Normal size aortic root and proximal ascending aorta. CONCLUSIONS Previewed by: Dr Jf Steinberg (Electronically Signed) Final Date: 25 July 2023 17:52
[2023-07-25] MEDS: APIXABAN 5 MG TAB PO SCH (20:06)
[2023-07-25] MEDS: LOPERAMIDE 2 MG CAP PO PRN (21:25)
[2023-07-26 08:56] LABS: African American GFR (CKD) 6 (>60 ml/min/1.73 sqM); Anion Gap 12 mmol/L; Blood Urea Nitrogen 63 mg/dL (9-20); Calcium 9.2 mg/dL (8.4-10.2); Carbon Dioxide 24 mmol/L (22-30); Chloride 104 mmol/L (98-107); Glucose 103 mg/dL (74-99); Non-African American GFR(CKD) 5 (>60 ml/min/1.73 sqM); Potassium 5.2 mmol/L (3.5-5.1); Sodium 140 mmol/L (137-145)
--- NOTE | 2023-07-26 10:53 | P.PN ---
Subjective Progress Note Date: 07/26/23 67 year old M with PMH of ESRD, A-Fib not on AC, peripheral neuropathy, BPH, GERD, HLD presents to the ED. Went to HD today, felt SOB with palpitations, found to be tachycardic, session terminated one hour early, sent home on a bus. Sister Lizbeth noted he was feeling unwell and called EMS. He does report diarrhea that started last Monday. He denies any chest pain or lightheadedness. 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 Recently had an Echo done in June. Plans to undergo EGD and C-scope in September. In the ED he underwent extensive evaluation. BP 113/95, HR 160, RR 18, T 98.5F, 95% on RA. CBC, coag panel, CMP was done significant for Hg 11.6 Hct 34.1, BUN 43, Cr 5.96, glu 117, Ca 8.1. Mag 1.8. Troponin 0.072. EKG atrial flutter. TSH 0.723. CXR showed bronchitis or mild interstitial pneumonitis, prominent right upper mediastinum recommending short term follow up CT. Patient is admitted for Atrial flutter. 07/24 Patient was seen and examined. Maintained on Heparin drip at 14 units/k g/hr. Restarted on PO Cardizem, drip discontinued. Underwent stress test, fixed defect. Plans for Echo and obtain records from [facility] per Cardiology. CBC Hg 10.8 Hct 32.6. APTT 39.2. BMP BUN 50 Cr 7.9. Troponin 0.132, 0.205. EKG done this morning shows atrial flutter with rate of [address] depression. 07/25 Patient was seen and examined. Stress test done yesterday shows a fixed defect. He was restarted on Cardizem drip after his stress test due to uncontrolled atrial flutter. Currently on Cardizem 10 mg/hr. Echo shows EF 60- 65%. Discussed with Radha NOONAN, possible cardioversion tomorrow. BMP shows K 5.2 BUN 63 Cr 9.31 glu 103. General: non toxic, no distress, appears at stated age Derm: warm, dry Head: atraumatic, normocephalic, symmetric Eyes: EOMI, no lid lag, anicteric sclera Mouth: no lip lesion, mucus membranes moist Cardiovascular: S1S2 irregular, no murmur Lungs: Decreased BS bilateral, no rhonchi, no rales , no accessory muscle use Ext: no gross muscle atrophy, no edema, no contractures Neuro: no focal neuro deficits Psych: Alert, oriented, appropriate affect Based on my assessment of this patient, this patient meets a high complexity level of care. Patient has an acute diagnosis of atrial flutter that poses a threat to life or bodily function. Atrial flutter: Cardizem 320 mg PO QD and Metoprolol 25 mg PO BID. Cardizem drip at 10 mg/hr. Eliquis 5 mg PO BID. Telemetry monitoring. Cardiology on board. Plans for cardioversion tomorrow if he does not convert. Hyperkalemia: Mild elevation. Repeat K at 2PM. Troponin elevation: Likely demand ischemia. Slowly uptrending. ASA 81 mg PO QD. Lipitor 10 mg PO QHS. Stress test as above. Diarrhea: COVID 19 negative. ESRD on HD MWF: Nephrology consult to initiate HD. CODE STATUS: FULL CODE. DVT Prophylaxis: Eliquis. GI Prophylaxis: Prilosec Designated medical POA if patient is not able to make medical decisions for emselves: Lizbeth (sister) I have reviewed the following lead sales consultant notes: Cardiology note. I have reviewed the results of the following tests: Stress test. Echo. BMP. Mag. I have ordered the following tests: BMP and Mag. I have discussed the care of this patient with the following independent historian: I have independently interpreted the following test below: I have discussed the management of this patient with the following physician: Discussed with Radha NOONAN as above. Objective - Vital Signs Vital signs: Vital Signs Temp 99.0 F 07/26/23 08:33 Pulse 153 H 07/26/23 08:33 Resp 18 07/26/23 08:33 BP 116/72 07/26/23 08:33 Pulse Ox 93 L 07/26/23 08:33 FiO2 Intake & Output 07/25/23 07/26/23 07/26/23 18:59 06:59 18:59 Intake Total 228.288 616.606 Balance 228.288 616.606 Weight 77.111 kg 80.7 kg Intake: Intake, IV Titration 228.288 256.606 Amount Diltiazem 125 mg In 114.750 64.75 Sodium Chloride 0.9% 100 ml @ 5 MG/HR 5 mls/hr IV .Q24H [facility] Rx#:[id number] Heparin Sod,Pork in 0.45% 113.538 130.577 NaCl 25,000 unit In 0.45 % NaCl 1 250ml.bag @ 12 UNITS/KG/HR 9.253 mls/hr IV .Q24H [facility] Rx#: [id number] Heparin Sod,Pork in 0.45% 61.279 NaCl 25,000 unit In 0.45 % NaCl 1 250ml.bag @ 12 UNITS/KG/HR 9.253 mls/hr IV .Q24H [facility] Rx#: [id number] Oral 360 Other: # Voids 1 1 1 # Bowel Movements 1 1 - Labs CBC & Chem 7: 07/25/23 07:45 07/26/23 07:45 Labs: Abnormal Lab Results - Last 24 Hours (Table) 07/25/23 07/25/23 07/25/23 Range/Units 07:45 07:45 15:08 APTT 42.5 H (22.0-30.0) sec BUN 50 H (9-20) mg/dL Creatinine 7.90 H* (0.66-1.25) mg/dL HDL Cholesterol 32.50 L (40.00-60.00) mg/dL 07/25/23 Range/Units 18:18 APTT 42.2 H (22.0-30.0) sec BUN (9-20) mg/dL Creatinine (0.66-1.25) mg/dL HDL Cholesterol (40.00-60.00) mg/dL
[2023-07-26] MEDS: DEXTROSE 5% IN WATER 100 ML with AMIODARONE 150 MG IV ONE (11:32)
--- NOTE | 2023-07-26 11:38 | P.NPCON ---
History of Present Illness - Reason for Consult end stage renal disease - History of Present Illness patient is a 67-year-old male with end-stage renal disease maintained on hemodialysis on a Monday schedule. He is admitted to the hospital with complaints of chest discomfort shortness of breath while on dialysis and treatment was terminated early. Patient was noted to be new onset atrial flutter with RVR. Troponins were elevated and patient is being followed by cardiology. Status post stress test. Currently maintained on Cardizem drip and amiodarone drip. No complaints of chest pain or shortness of breath. Schedule for hemodialysis today. Review of Systems As per HPI Past Medical History Past Medical History: Atrial Fibrillation, Dialysis, GERD/Reflux, Hyperlipidemia, Hypertension Additional Past Medical History / Comment(s): BPH, spinal arthritis, severe neuropathy of feet bilaterally, TBI History of Any Multi-Drug Resistant Organisms: None Reported Past Surgical History: Heart Catheterization, Hernia Repair Additional Past Surgical History / Comment(s): AV fistula placed Past Anesthesia/Blood Transfusion Reactions: No Reported Reaction Past Psychological History: No Psychological Hx Reported Smoking Status: Current every day smoker Past Alcohol Use History: None Reported Past Drug Use History: None Reported Medications and Allergies Home Medications Medication Instructions Recorded Confirmed Type Aspirin EC [Ecotrin Low Dose] 81 mg PO DAILY 07/24/23 07/24/23 History Atorvastatin [Lipitor] 10 mg PO HS 07/24/23 07/24/23 History Cyanocobalamin [Vitamin B-12] 500 mcg PO DAILY 07/24/23 07/24/23 History Gabapentin [Neurontin] 200 mg PO TID 07/24/23 07/24/23 History Omeprazole [PriLOSEC] 20 mg PO BID 07/24/23 07/24/23 History Patiromer Calcium Sorbitex 1 packet PO SUTUTHSA 07/24/23 07/24/23 History [Veltassa] Sevelamer Carbonate 1,600 mg PO TID 07/24/23 07/24/23 History Sodium Bicarbonate Tab 650 mg PO BID 07/24/23 07/24/23 History Tamsulosin [Flomax] 0.4 mg PO HS 07/24/23 07/24/23 History dilTIAZem HCL [dilTIAZem HCL 24Hr 300 mg PO DAILY@1630 07/24/23 07/24/23 History ER (Tiazac)] Allergies Allergy/AdvReac Type Severity Reaction Status Date / Time No Known Allergies Allergy Verified 07/24/23 14:44 Physical Exam Vitals: Vital Signs Temp Pulse Pulse Resp BP BP Pulse Ox 07/26/23 08:37 153 H 07/26/23 08:33 99.0 F 153 H 18 116/72 93 L 07/26/23 03:30 84 19 127/64 97 07/25/23 23:46 70 19 102/55 93 L 07/25/23 20:00 98.4 F 79 19 95/61 94 L 07/25/23 16:00 96.4 F L 49 L 17 90/56 07/25/23 15:04 98.4 F 147 H 18 118/83 93 L 07/25/23 13:39 149 H 19 95 07/25/23 13:00 147 H 19 116/92 94 L Intake and Output 07/25/23 07/26/23 07/26/23 22:59 06:59 14:59 Intake Total 567.689 64.75 Balance 567.689 64.75 Intake: Intake, IV Titration 207.689 64.75 Amount Diltiazem 125 mg In 15.833 64.75 Sodium Chloride 0.9% 100 ml @ 5 MG/HR 5 mls/hr IV .Q24H [facility] Rx#:[id number] Heparin Sod,Pork in 0.45% 130.577 NaCl 25,000 unit In 0.45 % NaCl 1 250ml.bag @ 12 UNITS/KG/HR 9.253 mls/hr IV .Q24H [facility] Rx#: [id number] Heparin Sod,Pork in 0.45% 61.279 NaCl 25,000 unit In 0.45 % NaCl 1 250ml.bag @ 12 UNITS/KG/HR 9.253 mls/hr IV .Q24H [facility] Rx#: [id number] Oral 360 Other: # Voids 1 1 1 # Bowel Movements 1 1 1 Weight 77.111 kg 80.7 kg Patient is awake, comfortable, alert oriented 3. No acute distress Examination of the heart S1 and S2 Examination of the lungs bilateral breath sounds are heard Abdomen is soft nontender Examination of lower extremities shows no evidence of edema COGNOS CONSULTANT exam grossly intact Results - Lab Results Most recent lab results Calcium 9.2 mg/dL (8.4-10.2) 07/26/23 07:45 Magnesium 2.0 mg/dL (1.6-2.3) 07/26/23 07:45 07/25/23 07:45 07/26/23 07:45 Assessment and Plan Assessment: 1. End-stage renal disease on hemodialysis on Monday schedule 2. Atrial flutter with RVR 3. Borderline elevated troponin status post stress tests which showed fixed defect. Patient is being followed by cardiology 4. CK D mineral bone disorder Plan: Hemodialysis dialysis today. No significant ultrafiltration. DC sodium bicarb Repeat labs in a.m. Thank you for the consultation. We will continue to follow the patient with you during his hospitalization.
[2023-07-26] MEDS: AMIODARONE 360 MG in DEXTROSE 5% IN WATER 200 ML IV ONE (12:03)
--- NOTE | 2023-07-26 13:28 | P.PN ---
Subjective HISTORY OF PRESENT ILLNESS: This is a 67-year-old male with a past medical history significant for end-stage renal disease on hemodialysis, hypertension, hyperlipidemia, and paroxysmal atrial fibrillation. Patient follows in the office with Dr. Blandon. We have been asked to see the patient in consultation for atrial flutter. Patient examined at the bedside in the ER. Patient states his sister sent him to the hospital. Patient does not remember why he came to the ER. He denied having any chest pain or pressure. He reports mild shortness of breath. He reports getting frequent headaches. Patient was found to be in atrial flutter with RVR. He was started on IV Heparin and IV Cardizem. He remains on Cardizem at 10mg/hr. He denies any issues of previous GI bleeding. He reports occasional rectal bleeding with bowel movements. According to cardiology office records, the patient previously saw a greenhouse specialist at [facility] in [place]. The decision was made by his previous greenhouse specialist not to anticoagulate him but instead placed him on a aspirin daily. He also apparently had a cardiac catheterization in the past which did not reveal any significant CAD however records of this are unavailable at this time. Additionally, the patient does have a family history of hypertrophic cardiomyopathy. His brother from hypertrophic cardiomyopathy and his sister also has it and is being followed by a physician out of [facility]. DIAGNOSTICS: - EKG reveals atrial flutter with RVR. - Chest xray correlate for bronchitis or mild interstitial pneumonitis. Prominent right upper mediastinum underlying mass or adenopathy or aortic aneurysm in the differential diagnosis. - Laboratory data: WBC 8.4. Hemoglobin 11.6. Platelet count 261. Sodium 138. Potassium 3.9. BUN 43. Creatinine 5.96. Magnesium 1.8. TSH 0.723. Troponin 0.072. 0.132. 0.205 - Current home cardiac medications include aspirin 81 mg daily, Cardizem 300 mg daily, and Lipitor 10 mg at night. 07/26/2023 Patient examined at the bedside. Patient denies chest pain or pressure. He denies shortness of breath. Patient remains in atrial flutter with RVR with heart rates into the 150s. He remains on Cardizem at 10mg/hr. plan was for TONEY and cardioversion today. However due to scheduling conflicts, this is unable to be performed today. Echocardiogram completed revealing ejection fraction 60 to 65%, no obvious regional wall motion abnormalities, mild mitral regurgitation, mild aortic regurgitation. Patient underwent Lexiscan stress test yesterday revealing matched defect involving the apical lateral myocardium with no definite reversible area of ischemia. PHYSICAL EXAM: VITAL SIGNS: Reviewed. GENERAL: Well-developed in no acute distress. HEENT: Head is normocephalic. Pupils are equal, round. Sclerae anicteric. Mucous membranes of the mouth are moist. Neck supple. No JVD or thyromegaly LUNGS: Respirations even and unlabored. Lungs essentially clear to auscultation bilaterally. HEART: Tachycardic. Regular rate and rhythm. S1 and S2 heard. ABDOMEN: Soft. Nondistended. Nontender. EXTREMITIES: Normal range of motion. No clubbing or cyanosis. Peripheral pulses intact. No lower extremity edema NEUROLOGIC: Awake and alert. Oriented x 3. ASSESSMENT: New onset typical atrial flutter with RVR History of paroxysmal atrial fibrillation, not anticoagulated on an outpatient basis by decision of previous cardiology in [place] Abnormal troponins, Type I, Lexiscan negative for reversible ischemia End-stage renal disease on hemodialysis Hypertension Hyperlipidemia Family history of hypertrophic cardiomyopathy History of PFO, per patient PLAN: Continue IV Cardizem. Increase drip to 15 mg an hour. Hold oral Cardizem while IV infusion is running. Continue oral anticoagulation with Eliquis Continue oral metoprolol Add IV amiodarone bolus and infusion per protocol Still awaiting records of cardiac catheterization performed at [facility] Patient will undergo TONEY and cardioversion tomorrow morning with Dr. Blandon. NPO at midnight. Further recommendations pending patient course Nurse practitioner note has been reviewed by physician. Signing provider agrees with the documented findings, assessment, and plan of care documented by GENERAL ADMINISTRATOR as a scribe. Objective - Vital Signs Vital signs: Vital Signs Temp 99.0 F 07/26/23 08:33 Pulse 153 H 07/26/23 08:37 Resp 18 07/26/23 08:33 BP 116/72 07/26/23 08:33 Pulse Ox 93 L 07/26/23 08:33 FiO2 Intake & Output 07/25/23 07/26/23 07/26/23 18:59 06:59 18:59 Intake Total 228.288 616.606 Balance 228.288 616.606 Weight 77.111 kg 80.7 kg Intake: Intake, IV Titration 228.288 256.606 Amount Diltiazem 125 mg In 114.750 64.75 Sodium Chloride 0.9% 100 ml @ 5 MG/HR 5 mls/hr IV .Q24H [facility] Rx#:[id number] Heparin Sod,Pork in 0.45% 113.538 130.577 NaCl 25,000 unit In 0.45 % NaCl 1 250ml.bag @ 12 UNITS/KG/HR 9.253 mls/hr IV .Q24H [facility] Rx#: [id number] Heparin Sod,Pork in 0.45% 61.279 NaCl 25,000 unit In 0.45 % NaCl 1 250ml.bag @ 12 UNITS/KG/HR 9.253 mls/hr IV .Q24H [facility] Rx#: [id number] Oral 360 Other: # Voids 1 1 1 # Bowel Movements 1 1 1 - Labs CBC & Chem 7: 07/25/23 07:45 07/26/23 07:45 Labs: Abnormal Lab Results - Last 24 Hours (Table) 07/25/23 07/25/23 07/25/23 Range/Units 07:45 15:08 18:18 APTT 42.5 H 42.2 H (22.0-30.0) sec Potassium (3.5-5.1) mmol/L BUN (9-20) mg/dL Creatinine 7.90 H* (0.66-1.25) mg/dL Glucose (74-99) mg/dL 07/26/23 Range/Units 07:45 APTT (22.0-30.0) sec Potassium 5.2 H (3.5-5.1) mmol/L BUN 63 H (9-20) mg/dL Creatinine 9.31 H* (0.66-1.25) mg/dL Glucose 103 H (74-99) mg/dL
[2023-07-26] MEDS: AMIODARONE 450 MG in DEXTROSE 5% IN WATER 250 ML IV SCH (17:33)
[2023-07-26 17:52] LABS: Hepatitis B Surface Antigen Nonreactive
--- NOTE | 2023-07-27 10:18 | P.PN ---
Subjective Patient is seen for follow-up for end-stage renal disease. Currently seen on hemodialysis Tolerating treatment well. Patient was not dialyzed yesterday as heart rate was in the 140 range. Objective - Vital Signs Vital signs: Vital Signs Temp 98.7 F 07/27/23 08:10 Pulse 71 07/27/23 08:10 Resp 17 07/27/23 08:10 BP 106/65 07/27/23 08:10 Pulse Ox 95 07/27/23 08:10 FiO2 Intake & Output 07/26/23 07/27/23 07/27/23 18:59 06:59 18:59 Intake Total 480.25 277.667 Balance 480.25 277.667 Intake: Intake, IV Titration 60.25 37.667 Amount Diltiazem 125 mg In 60.25 37.667 Sodium Chloride 0.9% 100 ml @ 15 MG/HR 15 mls/hr IV .Q8H20M [facility] Rx#: [id number] Oral 420 240 Other: Voiding Method Urinal Toilet # Voids 1 2 # Bowel Movements 1 1 - Exam Patient is awake, comfortable, alert oriented 3. No acute distress Examination of the heart S1 and S2 Examination of the lungs bilateral breath sounds are heard Abdomen is soft nontender Examination of lower extremities shows no evidence of edema LADIES' LOCKER ROOM ATTENDANT exam grossly intact - Labs CBC & Chem 7: 07/25/23 07:45 07/26/23 17:09 Labs: Abnormal Lab Results - Last 24 Hours (Table) 07/26/23 Range/Units 07:45 Hep Bs Antibody A (Negative) Assessment and Plan Assessment: 1. End-stage renal disease on hemodialysis on Monday schedule 2. Atrial flutter with RVR maintained on amiodarone drip 3. Borderline elevated troponin status post stress tests which showed fixed defect. Patient is being followed by cardiology 4. CK D mineral bone disorder Plan: Hemodialysis dialysis today. No significant ultrafiltration. Patient was not dialyzed yesterday due to A. fib with RVR and heart rate in the 140s. DC sodium bicarb
--- NOTE | 2023-07-27 13:04 | P.PN ---
Subjective Progress Note Date: 07/27/23 Pt has no new complaints today. Undergoing dialysis. PT/OT consult will be placed for rehab evaluation. Gen: In NAD, non-toxic HEENT: normocephalic, atraumatic, hearing acuity is intant, mucous membranes moist CVS: perfusing all extremities well, no pitting edema, Respiratory: symmetric chest expansion, no accessory muscle use, GI: soft, NTTP, ND, : no suprapubic tenderness, no CVA tenderness MSK/Derm: no rashes, cyanosis Neuro: CN II-XII intact, no motor weakness, Psych: cooperative, euthymic mood, judgment and insight is intact Hospital Course: 67 year old M with PMH of ESRD, A-Fib not on AC, peripheral neuropathy, BPH, GERD, HLD presents to the ED. Went to HD today, felt SOB with palpitations, found to be tachycardic, session terminated one hour early, sent home on a bus. Sister Lizbeth noted he was feeling unwell and called EMS. He does report diarrhea that started last Monday. He denies any chest pain or lightheadedness. 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 ReHospital course:pio had an Echo done in June. Plans to undergo EGD and C-scope in September. In the ED he underwent extensive evaluation. BP 113/95, HR 160, RR 18, T 98.5F, 95% on RA. CBC, coag panel, CMP was done significant for Hg 11.6 Hct 34.1, BUN 43, Cr 5.96, glu 117, Ca 8.1. Mag 1.8. Troponin 0.072. EKG atrial flutter. TSH 0.723. CXR showed bronchitis or mild interstitial pneumonitis, prominent right upper mediastinum recommending short term follow up CT. Patient is admitted for Atrial flutter. 07/24 Patient was seen and examined. Maintained on Heparin drip at 14 units/kg/hr. Restarted on PO Cardizem, drip discontinued. Underwent stress test, fixed defect. Plans for Echo and obtain records from [place] per Cardiology. CBC Hg 10.8 Hct 32.6. APTT 39.2. BMP BUN 50 Cr 7.9. Troponin 0.132, 0.205. EKG done this morning shows atrial flutter with rate of [address] depression. 3/20 Patient was seen and examined. Stress test done yesterday shows a fixed defect. He was restarted on Cardizem drip after his stress test due to uncontrolled atrial flutter. Currently on Cardizem 10 mg/hr. Echo shows EF 60- 65%. Discussed with Radha NOONAN, possible cardioversion tomorrow. BMP shows K 5.2 BUN 63 Cr 9.31 glu 103. Assessment/plan: Atrial flutter: Troponin elevation: -Cardizem 320 mg PO QD and Metoprolol 25 mg PO BID. -Eliquis 5 mg PO BID. -Telemetry monitoring. Cardiology on board. -Plans for cardioversion canceled bc patient cardioverted -ASA 81 mg PO QD. Lipitor 10 mg PO QHS. Stress test as above. Hyperkalemia: -Mild elevation. Repeat K at 2PM. Diarrhea: COVID 19 negative. ESRD on HD MWF: Nephrology consult to initiate HD. CODE STATUS: FULL CODE. DVT Prophylaxis: Eliquis. GI Prophylaxis: Prilosec Designated medical POA if patient is not able to make medical decisions for themselves: Lizbeth (sister) Objective - Vital Signs Vital signs: Vital Signs Temp 98.7 F 07/27/23 08:10 Pulse 71 07/27/23 08:10 Resp 17 07/27/23 08:10 BP 106/65 07/27/23 08:10 Pulse Ox 95 07/27/23 08:10 FiO2 Intake & Output 07/26/23 07/27/23 07/27/23 18:59 06:59 18:59 Intake Total 480.25 277.667 Balance 480.25 277.667 Intake: Intake, IV Titration 60.25 37.667 Amount Diltiazem 125 mg In 60.25 37.667 Sodium Chloride 0.9% 100 ml @ 15 MG/HR 15 mls/hr IV .Q8H20M [facility] Rx#: [id number] Oral 420 240 Other: Voiding Method Urinal Toilet # Voids 1 2 # Bowel Movements 1 1 - Labs CBC & Chem 7: 07/25/23 07:45 07/26/23 17:09 Labs: Abnormal Lab Results - Last 24 Hours (Table) 07/26/23 Range/Units 07:45 Hep Bs Antibody A (Negative)
--- NOTE | 2023-07-27 13:16 | P.PN ---
Subjective HISTORY OF PRESENT ILLNESS: This is a 67-year-old male with a past medical history significant for end-stage renal disease on hemodialysis, hypertension, hyperlipidemia, and paroxysmal atrial fibrillation. Patient follows in the office with Dr. Blandon. We have been asked to see the patient in consultation for atrial flutter. Patient examined at the bedside in the ER. Patient states his sister sent him to the hospital. Patient does not remember why he came to the ER. He denied having any chest pain or pressure. He reports mild shortness of breath. He reports getting frequent headaches. Patient was found to be in atrial flutter with RVR. He was started on IV Heparin and IV Cardizem. He remains on Cardizem at 10mg/hr. He denies any issues of previous GI bleeding. He reports occasional rectal bleeding with bowel movements. According to cardiology office records, the patient previously saw a adjunct professor of voice at [facility] in [place]. The decision was made by his previous adjunct professor of voice not to anticoagulate him but instead placed him on a aspirin daily. He also apparently had a cardiac catheterization in the past which did not reveal any significant CAD however records of this are unavailable at this time. Additionally, the patient does have a family history of hypertrophic cardiomyopathy. His brother from hypertrophic cardiomyopathy and his sister also has it and is being followed by a physician out of [facility]. DIAGNOSTICS: - EKG reveals atrial flutter with RVR. - Chest xray correlate for bronchitis or mild interstitial pneumonitis. Prominent right upper mediastinum underlying mass or adenopathy or aortic aneurysm in the differential diagnosis. - Laboratory data: WBC 8.4. Hemoglobin 11.6. Platelet count 261. Sodium 138. Potassium 3.9. BUN 43. Creatinine 5.96. Magnesium 1.8. TSH 0.723. Troponin 0.072. 0.132. 0.205 - Current home cardiac medications include aspirin 81 mg daily, Cardizem 300 mg daily, and Lipitor 10 mg at night. 07/26/2023 Patient examined at the bedside. Patient denies chest pain or pressure. He denies shortness of breath. Patient remains in atrial flutter with RVR with heart rates into the 150s. He remains on Cardizem at 10mg/hr. plan was for TOENY and cardioversion today. However due to scheduling conflicts, this is unable to be performed today. Echocardiogram completed revealing ejection fraction 60 to 65%, no obvious regional wall motion abnormalities, mild mitral regurgitation, mild aortic regurgitation. Patient underwent Lexiscan stress test yesterday revealing matched defect involving the apical lateral myocardium with no definite reversible area of ischemia. 07/27/2023 Patient examined this morning at the bedside. Patient is currently undergoing hemodialysis. Patient was scheduled for TONEY and cardioversion today with Dr. Blandon. However he converted on his own to sinus mechanism and is maintaining sinus mechanism at the time of examination. PHYSICAL EXAM: VITAL SIGNS: Reviewed. GENERAL: Well-developed in no acute distress. HEENT: Head is normocephalic. Pupils are equal, round. Sclerae anicteric. Mucous membranes of the mouth are moist. Neck supple. No JVD or thyromegaly LUNGS: Respirations even and unlabored. Lungs essentially clear to auscultation bilaterally. HEART: Regular rate and rhythm. S1 and S2 heard. ABDOMEN: Soft. Nondistended. Nontender. EXTREMITIES: Normal range of motion. No clubbing or cyanosis. Peripheral pulses intact. No lower extremity edema NEUROLOGIC: Awake and alert. Oriented x 3. ASSESSMENT: New onset typical atrial flutter with RVR History of paroxysmal atrial fibrillation, not anticoagulated on an outpatient basis by decision of previous cardiology in [place] Abnormal troponins, Type II, Lexiscan negative for reversible ischemia End-stage renal disease on hemodialysis Hypertension Hyperlipidemia Family history of hypertrophic cardiomyopathy History of PFO, per patient PLAN: Discontinue IV Cardizem Discontinue IV amiodarone Continue current dose of metoprolol Begin oral amiodarone for 400 mg twice a day. Amiodarone taper upon discharge 400 mg twice a day for 1 week, then 200 mg twice a day for 1 week, then 200 mg daily Still awaiting records of cardiac catheterization performed at [facility]. Do not need to wait for report for discharge. However, still n eed report to document in our records Patient is stable for discharge from a cardiac perspective Further recommendations pending patient course Nurse practitioner note has been reviewed by physician. Signing provider agrees with the documented findings, assessment, and plan of care documented by [employer] as a scribe. Objective - Vital Signs Vital signs: Vital Signs Temp 98.7 F 07/27/23 08:10 Pulse 71 07/27/23 08:10 Resp 17 07/27/23 08:10 BP 106/65 03/21/24 08:10 Pulse Ox 95 07/27/23 08:10 FiO2 Intake & Output 07/26/23 07/27/23 07/27/23 18:59 06:59 18:59 Intake Total 480.25 277.667 Balance 480.25 277.667 Intake: Intake, IV Titration 60.25 37.667 Amount Diltiazem 125 mg In 60.25 37.667 Sodium Chloride 0.9% 100 ml @ 15 MG/HR 15 mls/hr IV .[id number] [facility] Rx#: [id number] Oral 420 240 Other: Voiding Method Urinal Toilet # Voids 1 2 # Bowel Movements 1 1 - Labs CBC & Chem 7: 07/25/23 07:45 07/26/23 17:09 Labs: Abnormal Lab Results - Last 24 Hours (Table) 07/26/23 Range/Units 07:45 Hep Bs Antibody A (Negative)
[2023-07-27] MEDS: AMIODARONE 200 MG TAB PO SCH (14:01)
[2023-07-27] MEDS: LACTATED RINGERS 1,000 ML IV SCH (18:08)
[2023-07-28 09:26] LABS: Basophils % (A) 0 %; Eosinophils # (A) 0.2 k/uL (0-0.7); Eosinophils % (A) 2 %; HCT 32.2 % (39.0-53.0); Lymphocytes # (A) 1.1 k/uL (1.0-4.8); Lymphocytes % (A) 14 %; MCH 28.2 pg (25.0-35.0); Mean Platelet Volume 7.4; Monocytes # (A) 0.8 k/uL (0-1.0); Monocytes % (A) 11 %; Neutrophils # (A) 5.4 k/uL (1.3-7.7); Neutrophils % (A) 69 %; Platelet Count 297 k/uL (150-450); RBC 3.54 m/uL (4.30-5.90); RDW 14.4 % (11.5-15.5); WBC 7.8 k/uL (3.8-10.6)
[2023-07-28 11:09] LABS: African American GFR (CKD) 8 (>60 ml/min/1.73 sqM); Anion Gap 11 mmol/L; Blood Urea Nitrogen 47 mg/dL (9-20); Calcium 8.9 mg/dL (8.4-10.2); Carbon Dioxide 22 mmol/L (22-30); Chloride 108 mmol/L (98-107); Glucose 100 mg/dL (74-99); Magnesium 1.9 mg/dL (1.6-2.3); Non-African American GFR(CKD) 7 (>60 ml/min/1.73 sqM); Potassium 4.9 mmol/L (3.5-5.1); Sodium 141 mmol/L (137-145)
--- NOTE | 2023-07-28 12:42 | P.PN ---
Subjective HISTORY OF PRESENT ILLNESS: This is a 67-year-old male with a past medical history significant for end-stage renal disease on hemodialysis, hypertension, hyperlipidemia, and paroxysmal atrial fibrillation. Patient follows in the office with Dr. Blandon. We have been asked to see the patient in consultation for atrial flutter. Patient examined at the bedside in the ER. Patient states his sister sent him to the hospital. Patient does not remember why he came to the ER. He denied having any chest pain or pressure. He reports mild shortness of breath. He reports getting frequent headaches. Patient was found to be in atrial flutter with RVR. He was started on IV Heparin and IV Cardizem. He remains on Cardizem at 10mg/hr. He denies any issues of previous GI bleeding. He reports occasional rectal bleeding with bowel movements. According to cardiology office records, the patient previously saw a territory account representative at [facility] in [place]. The decision was made by his previous territory account representative not to anticoagulate him but instead placed him on a aspirin daily. He also apparently had a cardiac catheterization in the past which did not reveal any significant CAD however records of this are unavailable at this time. Additionally, the patient does have a family history of hypertrophic cardiomyopathy. His brother from hypertrophic cardiomyopathy and his sister also has it and is being followed by a physician out of [facility]. DIAGNOSTICS: - EKG reveals atrial flutter with RVR. - Chest xray correlate for bronchitis or mild interstitial pneumonitis. Prominent right upper mediastinum underlying mass or adenopathy or aortic aneurysm in the differential diagnosis. - Laboratory data: WBC 8.4. Hemoglobin 11.6. Platelet count 261. Sodium 138. Potassium 3.9. BUN 43. Creatinine 5.96. Magnesium 1.8. TSH 0.723. Troponin 0.072. 0.132. 0.205 - Current home cardiac medications include aspirin 81 mg daily, Cardizem 300 mg daily, and Lipitor 10 mg at night. 07/26/2023 Patient examined at the bedside. Patient denies chest pain or pressure. He denies shortness of breath. Patient remains in atrial flutter with RVR with heart rates into the 150s. He remains on Cardizem at 10mg/hr. plan was for TONEY and cardioversion today. However due to scheduling conflicts, this is unable to be performed today. Echocardiogram completed revealing ejection fraction 60 to 65%, no obvious regional wall motion abnormalities, mild mitral regurgitation, mild aortic regurgitation. Patient underwent Lexiscan stress test yesterday revealing matched defect involving the apical lateral myocardium with no definite reversible area of ischemia. 07/27/2023 Patient examined this morning at the bedside. Patient is currently undergoing hemodialysis. Patient was scheduled for TONEY and cardioversion today with Dr. Blandon. However he converted on his own to sinus mechanism and is maintaining sinus mechanism at the time of examination. 07/28/2023 Patient examined this morning at bedside. Patient denies chest pain or pressure. He denies shortness of breath. Vital signs are stable. Most recent blood pressure 115/68. He is maintaining sinus mechanism. PHYSICAL EXAM: VITAL SIGNS: Reviewed. GENERAL: Well-developed in no acute distress. HEENT: Head is normocephalic. Pupils are equal, round. Sclerae anicteric. Mucous membranes of the mouth are moist. Neck supple. No JVD or thyromegaly LUNGS: Respirations even and unlabored. Lungs essentially clear to auscultation bilaterally. HEART: Regular rate and rhythm. S1 and S2 heard. ABDOMEN: Soft. Nondistended. Nontender. EXTREMITIES: Normal range of motion. No clubbing or cyanosis. Peripheral pulses intact. No lower extremity edema NEUROLOGIC: Awake and alert. Oriented x 3. ASSESSMENT: New onset typical atrial flutter with RVR History of paroxysmal atrial fibrillation, not anticoagulated on an outpatient basis by decision of previous cardiology in [place] Abnormal troponins, Type II, Lexiscan negative for reversible ischemia End-stage renal disease on hemodialysis Hypertension Hyperlipidemia Family history of hypertrophic cardiomyopathy History of PFO, per patient PLAN: Continue current cardiac medications Continue oral amiodarone for 400 mg twice a day. Amiodarone taper upon discharge 400 mg twice a day for 1 week, then 200 mg twice a day for 1 week, then 200 mg daily Still awaiting records of cardiac catheterization performed at [facility]. Do not need to wait for report for discharge. However, still need report to document in our records Patient is stable for discharge from a cardiac perspective We will sign off. Please reconsult if needed. Nurse practitioner note has been reviewed by physician. Signing provider agrees with the documented findings, assessment, and plan of care documented by SENIOR EXECUTIVE ASSISTANT as a scribe. Objective - Vital Signs Vital signs: Vital Signs Temp 98.5 F 07/28/23 08:10 Pulse 78 07/28/23 08:10 Resp 17 07/28/23 08:10 BP 115/68 07/28/23 08:10 Pulse Ox 94 L 07/28/23 08:10 FiO2 Intake & Output 07/27/23 07/28/23 07/28/23 18:59 06:59 18:59 Intake Total 1120 118 Output Total 900 400 Balance 220 -400 118 Weight 79.2 kg Intake: Oral 720 118 Hemodialysis 400 Output: Urine 400 Hemodialysis 900 Other: Voiding Method Toilet Toilet # Voids 350 # Bowel Movements 1 1 - Labs CBC & Chem 7: 07/28/23 08:54 07/28/23 08:54 Labs: Abnormal Lab Results - Last 24 Hours (Table) 07/28/23 Range/Units 08:54 RBC 3.54 L (4.30-5.90) m/uL Hgb 10.0 L (13.0-17.5) gm/dL Hct 32.2 L (39.0-53.0) %
[2023-07-28 13:08] VITALS: BP 99/63; PULSE 74; RESP 18; TEMP 98.3
--- NOTE | 2023-07-28 14:18 | P.DS ---
Providers Date of admission: 07/24/23 15:19 Expected date of discharge: 07/28/23 Attending physician: Homero Frederick MD Consults: 07/24/23 17:11 Consult Physician Routine Consulting Provider: Sheridan Santana Consult Reason/Comments: HD MWF Do you want consulting provider notified?: Yes Primary care physician: Maddie Snyder MD Hospital Course: Atrial flutter: Troponin elevation: Hyperkalemia: Diarrhea: COVID 19 negative. ESRD on HD MWF: Gen: In NAD, non-toxic HEENT: normocephalic, atraumatic, hearing acuity is intant, mucous membranes moist CVS: perfusing all extremities well, no pitting edema, Respiratory: symmetric chest expansion, no accessory muscle use, GI: soft, NTTP, ND, : no suprapubic tenderness, no CVA tenderness MSK/Derm: no rashes, cyanosis Neuro: CN II-XII intact, no motor weakness, Psych: cooperative, euthymic mood, judgment and insight is intact Hospital Course: 67 year old M with PMH of ESRD, A-Fib not on AC, peripheral neuropathy, BPH, GERD, HLD presents to the ED. Went to HD today, felt SOB with palpitations, found to be tachycardic, session terminated one hour early, sent home on a bus. Sister Lizbeth noted he was feeling unwell and called EMS. He does report diarrhea that started last Monday. He denies any chest pain or lightheadedness. Follows Dr. Blandon as his superintendent meters. ReHospital course:pio had an Echo done in June. Plans to undergo EGD and C-scope in September. In the ED he underwent extensive evaluation. BP 113/95, HR 160, RR 18, T 98.5F, 95% on RA. CBC, coag panel, CMP was done significant for Hg 11.6 Hct 34.1, BUN 43, Cr 5.96, glu 117, Ca 8.1. Mag 1.8. Troponin 0.072. EKG atrial flutter. TSH 0.723. CXR showed bronchitis or mild interstitial pneumonitis, prominent right upper mediastinum recommending short term follow up CT. Patient is admitted for Atrial flutter. 07/24 Patient was seen and examined. Maintained on Heparin drip at 14 units/kg/hr. Restarted on PO Cardizem, drip discontinued. Underwent stress test, fixed defect. Plans for Echo and obtain records from [facility] per Cardiology. CBC Hg 10.8 Hct 32.6. APTT 39.2. BMP BUN 50 Cr 7.9. Troponin 0.132, 0.205. EKG done this morning shows atrial flutter with rate of [address] depression. 07/25 Patient was seen and examined. Stress test done yesterday shows a fixed defect. He was restarted on Cardizem drip after his stress test due to uncontrolled atrial flutter. Currently on Cardizem 10 mg/hr. Echo shows EF 60- 65%. Discussed with Radha NOONAN, possible cardioversion tomorrow. BMP shows K 5.2 BUN 63 Cr 9.31 glu 103. 07/26-07/27: Patient spontaneously converted with amiodarone, no DCCV was required. He was evaluated by PT/OT who recommended rehab and subsequently discharged to SNF. On discharge, he was prescribed apixaban, and his aspirin was discontinued. Continued on metoprolol and had cardizem discontinued. I spent 40 minutes coordinating this complex discharge on 07/27 Patient Condition at Discharge: Good Plan - Discharge Summary Discharge Rx Participant: No New Discharge Prescriptions: New Apixaban [Eliquis] 5 mg PO BID tab Loperamide [Imodium] 2 mg PO QID PRN cap PRN Reason: Diarrhea Metoprolol Tartrate [Lopressor] 25 mg PO BID tab Amiodarone [Cordarone] 400 mg PO BID tab Nitroglycerin Sl Tabs [Nitrostat] 0.4 mg SUBLINGUAL Q5M PRN tab PRN Reason: Chest Pain Continue Cyanocobalamin [Vitamin B-12] 500 mcg PO DAILY Gabapentin [Neurontin] 200 mg PO TID Tamsulosin [Flomax] 0.4 mg PO HS Atorvastatin [Lipitor] 10 mg PO HS Sodium Bicarbonate Tab 650 mg PO BID Sevelamer Carbonate 1,600 mg PO TID Patiromer Calcium Sorbitex [Veltassa] 1 packet PO SUTUTHSA Omeprazole [PriLOSEC] 20 mg PO BID Discontinued Aspirin EC [Ecotrin Low Dose] 81 mg PO DAILY dilTIAZem HCL [dilTIAZem HCL 24Hr ER (Tiazac)] 300 mg PO DAILY@1630 Discharge Medication List Atorvastatin [Lipitor] 10 mg PO HS 07/24/23 [History] Cyanocobalamin [Vitamin B-12] 500 mcg PO DAILY 07/24/23 [History] Gabapentin [Neurontin] 200 mg PO TID 07/24/23 [History] Omeprazole [PriLOSEC] 20 mg PO BID 07/24/23 [History] Patiromer Calcium Sorbitex [Veltassa] 1 packet PO SUTUTHSA 07/24/23 [History] Sevelamer Carbonate 1,600 mg PO TID 07/24/23 [History] Sodium Bicarbonate Tab 650 mg PO BID 07/24/23 [History] Tamsulosin [Flomax] 0.4 mg PO HS 07/24/23 [History] Amiodarone [Cordarone] 400 mg PO BID tab 07/28/23 [Rx] Apixaban [Eliquis] 5 mg PO BID tab 07/28/23 [Rx] Loperamide [Imodium] 2 mg PO QID PRN cap 07/28/23 [Rx] Metoprolol Tartrate [Lopressor] 25 mg PO BID tab 07/28/23 [Rx] Nitroglycerin Sl Tabs [Nitrostat] 0.4 mg SUBLINGUAL Q5M PRN tab 07/28/23 [Rx] Follow up Appointment(s)/Referral(s): John Dent DO [STAFF PHYSICIAN] - 1 Week Maddie Snyder MD [Primary Care Provider] - 1-2 days Garrett Brunner [NON-STAFF] - 1 Week [facility] Visiting Nurse, [NON-STAFF] - 1 Week Activity/Diet/Wound Care/Special Instructions: Amiodarone taper upon discharge 400 mg twice a day for 1 week, then 200 mg twice a day for 1 week, then 200 mg daily Discharge Disposition: TRANSFER TO SNF/ECF
--- NOTE | 2023-07-28 16:47 | P.PN ---
Subjective Patient is seen for follow-up for end-stage renal disease. Currently seen on hemodialysis Tolerating treatment well. Objective - Vital Signs Vital signs: Vital Signs Temp 98.3 F 07/28/23 12:42 Pulse 74 07/28/23 14:00 Resp 18 07/28/23 14:00 BP 99/63 07/28/23 12:42 Pulse Ox 96 07/28/23 11:50 FiO2 Intake & Output 07/27/23 07/28/23 07/28/23 18:59 06:59 18:59 Intake Total 1120 1116 Output Total 495 533 0606 Balance 220 -400 -484 Weight 79.2 kg Intake: Oral 720 716 Hemodialysis 400 400 Output: Urine 400 200 Hemodialysis 900 1400 Other: Voiding Method Toilet Toilet Toilet # Voids 350 1 # Bowel Movements 1 1 - Exam Patient is awake, comfortable, alert oriented 3. No acute distress Examination of the heart S1 and S2 Examination of the lungs bilateral breath sounds are heard Abdomen is soft nontender Examination of lower extremities shows no evidence of edema ASSISTANT PRESSMAN exam grossly intact - Labs CBC & Chem 7: 07/28/23 08:54 07/28/23 08:54 Labs: Abnormal Lab Results - Last 24 Hours (Table) 07/28/23 07/28/23 Range/Units 08:54 08:54 RBC 3.54 L (4.30-5.90) m/uL Hgb 10.0 L (13.0-17.5) gm/dL Hct 32.2 L (39.0-53.0) % Chloride 108 H (98-107) mmol/L BUN 47 H (9-20) mg/dL Creatinine 7.63 H* (0.66-1.25) mg/dL Glucose 100 H (74-99) mg/dL Assessment and Plan Assessment: 1. End-stage renal disease on hemodialysis on Monday schedule 2. Atrial flutter with RVR maintained on amiodarone drip 3. Borderline elevated troponin status post stress tests which showed fixed de fect. Patient is being followed by cardiology. No plans for cardiac catheterization at this time 4. CK D mineral bone disorder Plan: Hemodialysis dialysis today. No significant ultrafiltration.
--- NOTE | 2023-07-31 12:07 | CDI ---
Documentation Clarification Form Date: 07/31/2023 11:54:02 AM From: Cata Quintero Admit Date: 07/24/2023 03:19:00 PM Patient Name: Nolberto Ellis Visit Number: [id number] Discharge Date: 07/28/2023 03:42:00 PM ATTENTION: The Clinical Documentation Specialists (CDI) and [facility] Coding Staff appreciate your assistance in clarifying documentation. Please respond to the clarification below the line at the bottom and electronically sign. The CDI & [facility] Coding staff will review the response and follow-up if needed. Please note: Queries are made part of the Legal Health Record. If you have any questions, please contact the author of this message via ITS. Dr. John Dent Conflicting documentation has been found in the medical record. As attending physician, please provide clarification. Abnormal troponins, Type I versus Type II WA In cardiac consult Troponin elevation: Likely demand ischemia. H and P, PH's 07/24 and 07/25 Troponin elevation History/Risk Factors: Clinical Indicators: Atrial flutter and fib, elevated troponins Treatment: Heparin Please clarify which diagnosis is most appropriate: [ ] Type I WA [ X ] Type II WA [ ] Demand Ischemia [ ] Elevation troponins [ ] Other (please specify) [ ] Unable to determine MTDD
== END 2023-07-28 15:42 | DRG 280 ==
LOC: EC 13:51 → 3SCARD 15:19
PROVIDERS: ADMIT Student in an Organized Health Care Education/Training Program; ATTEND Student in an Organized Health Care Education/Training Program
PROC: 5A1D70Z Performance of Urinary Filtration, Intermittent, Less than 6 Hours Per Day (ICD-10-PCS; principal; 2023-07-24)
DX: I48.3 Typical atrial flutter (principal); N18.6 End stage renal disease; I21.A1 Myocardial infarction type 2; I12.0 Hypertensive chronic kidney disease with stage 5 chronic kidney disease or end stage renal disease; K62.5 Hemorrhage of anus and rectum; R19.7 Diarrhea, unspecified; G62.9 Polyneuropathy, unspecified; F17.200 Nicotine dependence, unspecified, uncomplicated; Z99.2 Dependence on renal dialysis; E78.5 Hyperlipidemia, unspecified; E87.5 Hyperkalemia; R79.89 Other specified abnormal findings of blood chemistry; K21.9 Gastro-esophageal reflux disease without esophagitis; M47.9 Spondylosis, unspecified; I48.0 Paroxysmal atrial fibrillation; R00.0 Tachycardia, unspecified; E83.9 Disorder of mineral metabolism, unspecified; N40.0 Benign prostatic hyperplasia without lower urinary tract symptoms; Z79.01 Long term (current) use of anticoagulants; Z79.82 Long term (current) use of aspirin; Z79.899 Other long term (current) drug therapy; Z86.79 Personal history of other diseases of the circulatory system; Z87.820 Personal history of traumatic brain injury
CPT/HCPCS: 36415; 71046; 78452; 80048; 80053; 80061; 83735; 84132; 84443; 84484; 85025; 85610; 85730; 86706; 87340; 87636; 90935; 93005; 93017; 93306; 96365; 96366; 96368; 96375; 99291

== ENCOUNTER → 2023-09-19 | Day surgery (SDC) | payer OTHER ==
[~2023-09-19] MED LIST: LACTATED RINGERS 1,000 ML IV SCH; LIDOCAINE 1% (10MG/ML) FOR IV START INTRADERMA PRN; LIDOCAINE 1% INJ 10MG/ML (20 ML MDV) ONE; PROPOFOL 10 MG/ML 20 ML VIAL IV ONE
[2023-09-19] MEDS: LACTATED RINGERS 1,000 ML IV ONE (06:45)
[2023-09-19 07:35] VITALS: TEMP 98.2
--- NOTE | 2023-09-19 07:44 | P.PCN ---
Date of Procedure: 09/19/23 Procedure(s) Performed: Brief history: Patient is a pleasant 67-year-old white male scheduled for an elective upper endoscopy as well as colonoscopy as a part of evaluation of chronic diffuse abdominal pain as well as change in bowel habits and history of GERD of several years duration. Procedure performed: Esophagogastroduodenoscopy with biopsy Colonoscopy with snare polypectomy Preoperative diagnosis: Chronic abdominal pain History of GERD Change in bowel habits Anesthesia: MAC Procedure: After informed consent was obtained from the patient was brought into the endoscopy unit and IV sedation was administered by anesthesia under continuous monitoring. Initially upper endoscopy was done. The Olympus GF 160 video endoscope was inserted inserted into the mouth and esophagus intubated without any difficulty and was gradually advanced into the stomach and duodenum and carefully examined. The bulb and second part of the duodenum appeared normal. The scope was then withdrawn into the stomach adequately insufflated with air and upon careful examination the antrum had mild diffuse gastritis and biopsies were done from this area. Mucosa body, cardia and fundus appeared normal. The scope was then withdrawn into the esophagus. The GE junction was located at 40 cm to the incisors. It appeared regular with no erythema erosions or ulcerations. Rest of the esophagus appeared normal. Patient tolerated the procedure well. At this time the patient continued to remain sedation. Initial digital rectal examination was normal. Olympus CF 160 video colonoscope was then inserted into the rectum and gradually advanced to the cecum without any difficulty. Careful examination was performed as the scope was gradually being withdrawn. The prep was excellent. The cecum, ascending colon, appeared normal. The transverse colon there were 3 polyps measuring between 4 and 5 mm in size all removed by cold snare technique. In the sigmoid colon there was a 1.2 cm polyp at 30 cm from anal verge s/p snare polypectomy. Rest of the sigmoid colon and rectum appeared normal. Retroflexion was performed in the rectum and no lesions were noted. Patient tolerated the procedure well. Impression: 1. Upper endoscopy revealed mild antral gastritis with esophagitis of hypertensive disease 2. Colonoscopy revealed colon 5 mm, 4 mm x 2 transverse colon polyp status post cold snare polypectomy 1.2 cm sigmoid colon polyp s/p polypectomy Recommendations: Findings of this examination were discussed with the patient as well as his family. He was advised to follow-up with the biopsy results. If the biopsy reveals adenoma recommend repeat colonoscopy in 3 years.
[2023-09-19 08:24] VITALS: BP 133/76; PULSE 67
[2023-09-19 08:25] VITALS: RESP 16
== END ==
LOC: ORWHC2ENDO 06:03
PROVIDERS: ATTEND Internal Medicine Gastroenterology
DX: D12.5 Benign neoplasm of sigmoid colon (principal); K29.50 Unspecified chronic gastritis without bleeding; K21.00 Gastro-esophageal reflux disease with esophagitis, without bleeding; I10 Essential (primary) hypertension; E78.5 Hyperlipidemia, unspecified; J44.9 Chronic obstructive pulmonary disease, unspecified; Z79.899 Other long term (current) drug therapy; Z87.891 Personal history of nicotine dependence
CPT/HCPCS: 45385; 43239; J2001; J2704; 88305

== ENCOUNTER → 2023-10-05 | Outpatient (CLI) | payer OTHER ==
--- NOTE | 2023-10-09 11:57 | CT ---
EXAMINATION TYPE: CT chest wo con DATE OF EXAM: 10/05/2023 COMPARISON: 07/24/2023 HISTORY: ABNORMAL FINDING CT DLP: 454 mGycm, Automated exposure control for dose reduction was used. CONTRAST: None TECHNIQUE: Axial images were obtained at 5 mm thick sections. Reconstructed images are reviewed on [email or web address] computer in the coronal plane. FINDINGS: Portion of the thyroid visualized is normal. Attention to stated to the right mediastinal border. No suspicious underlying mass is evident. Normal appearing azygos vein is present. No suspicious lung nodules or focal infiltrates are present. No enlarged mediastinal or hilar adenopathy is evident. The ascending aorta diameter at the level o f the main pulmonary artery is 3.6 cm. The main pulmonary artery diameter at the bifurcation is 2.[address] sections are obtained through the upper abdomen. Stable cysts are present on the visualize d upper poles of the kidneys. The largest on the left measures 2.7 cm. The largest on the right is 2. 2 cm in the posterior upper pole IMPRESSION: 1. No suspicious abnormality to account for superior right mediastinal border abnormality on chest x- ray. 2. No acute pulmonary process. 3. Renal cysts within the superior portions of the visualized kidneys
== END | disposition home or self-care (01) ==
LOC: RADCTMAIN 10:41
PROVIDERS: ATTEND Internal Medicine Hospice and Palliative Medicine
DX: N28.1 Cyst of kidney, acquired (principal); R91.8 Other nonspecific abnormal finding of lung field
CPT/HCPCS: 71250

== ENCOUNTER → 2024-02-27 | Outpatient (CLI) | payer OTHER ==
--- NOTE | 2024-02-27 17:38 | US ---
EXAMINATION TYPE: US venous doppler duplex LE LT DATE OF EXAM: 02/27/2024 1:39 PM COMPARISON: NONE CLINICAL INDICATION: Male, 68 years old with history of M79.662 PAIN IN LEFT LEG; TECHNIQUE: The lower extremity deep venous system is examined utilizing real time linear array sonog volodymyr with graded compression, color doppler sonography, and spectral doppler. SIDE PERFORMED: Left FINDINGS: VESSELS IMAGED: Common Femoral Vein Deep Femoral Vein Greater Saphenous Vein * Femoral Vein Popliteal Vein Small Saphenous Vein * Proximal Calf Veins (* superficial vessels) Left Leg: Negative for DVT IMPRESSION: No evidence of deep vein thrombosis of the left lower extremity. [facility], , 02/27/2024 5:36 PM
== END | disposition home or self-care (01) ==
LOC: RADUSWWP 12:56
PROVIDERS: ATTEND Internal Medicine Hospice and Palliative Medicine
DX: M79.662 Pain in left lower leg (principal)

== ENCOUNTER 2024-03-25 19:03 | Inpatient (IN) | payer OTHER ==
[2024-03-25 19:58] LABS: Basophils # (A) 0.1 k/uL (0-0.2); Basophils % (A) 1 %; Eosinophils # (A) 0.2 k/uL (0-0.7); Eosinophils % (A) 2 %; HCT 35.5 % (39.0-53.0); HGB 11.6 gm/dL (13.0-17.5); Lymphocytes # (A) 1.4 k/uL (1.0-4.8); Lymphocytes % (A) 13 %; MCH 30.9 pg (25.0-35.0); MCHC 32.7 g/dL (31.0-37.0); MCV 94.6 fL (80.0-100.0); Monocytes # (A) 0.7 k/uL (0-1.0); Monocytes % (A) 6 %; Neutrophils # (A) 8.4 k/uL (1.3-7.7); Neutrophils % (A) 78 %; Platelet Count 204 k/uL (150-450); RBC 3.76 m/uL (4.30-5.90); RDW 14.2 % (11.5-15.5); WBC 10.8 k/uL (3.8-10.6)
[2024-03-25 20:09] LABS: ALT 16 U/L (4-49); African American GFR (CKD) 17 (>60 ml/min/1.73 sqM); Albumin 4.1 g/dL (3.5-5.0); Amylase 58 U/L (30-110); Anion Gap 7 mmol/L; Blood Urea Nitrogen 28 mg/dL (9-20); Calcium 7.8 mg/dL (8.4-10.2); Carbon Dioxide 31 mmol/L (22-30); Chloride 98 mmol/L (98-107); Glucose 114 mg/dL (74-99); Lipase 154 U/L (23-300); Non-African American GFR(CKD) 15 (>60 ml/min/1.73 sqM); Sodium 136 mmol/L (137-145); Total Bilirubin 0.6 mg/dL (0.2-1.3)
[2024-03-25 20:12] LABS: AST 21 U/L (17-59); Alkaline Phosphatase 90 U/L (38-126); Potassium 5.2 mmol/L (3.5-5.1); Total Protein 7.1 g/dL (6.3-8.2)
--- NOTE | 2024-03-25 20:14 | XR ---
EXAMINATION TYPE: XR chest 2V DATE OF EXAM: 03/25/2024 8:11 PM COMPARISON: CT chest study 10/05/2023. CLINICAL INDICATION: Male, 68 years old with history of tachy; H TECHNIQUE: XR chest 2V Frontal and lateral views of the chest. FINDINGS: Cardiac silhouette within normal limits for size. No acute focal consolidation. No pleural effusion or pneumothorax. No acute osseous abnormality. IMPRESSION: No acute cardiopulmonary disease/process. [facility], , 03/25/2024 8:12 PM
--- NOTE | 2024-03-25 20:31 | ED ---
General Adult HPI - General Chief complaint: Nausea/Vomiting/Diarrhea Stated complaint: Chest Pain Time Seen by Provider: 03/25/24 19:20 Source: EMS Mode of arrival: EMS - History of Present Illness Initial comments: 68-year-old male brought in from [facility] via EMS. History of ESRD on dialysis Monday, A-fib, hypertension, hyperlipidemia, GERD presenting with chief complaint of elevated heart rate. Patient had dialysis earlier today. I contacted the patient's sister for history as the patient is a poor historian. She states that she picked him up from the care home to take him to dinner and he was complaining of an upset stomach. She states that he regularly has "GI issues" after dialysis which have been worked up previously. Later on patient did have nausea and vomiting. The care home then called her stating that the patient was complaining of dizziness and his heart rate was elevated at 130 and he was brought to the ER. Patient is pleasantly confused. He denies any chest pain or difficulty breathing. Denies abdominal pain. - Related Data Home Medications Medication Instructions Recorded Confirmed Atorvastatin [Lipitor] 10 mg PO HS@199907/24/23 03/26/24 Cyanocobalamin [Vitamin B-12] 500 mcg PO DAILY@0800 07/24/23 03/26/24 Omeprazole [PriLOSEC] 20 mg PO BID@07/24/23 03/26/24 Patiromer Calcium Sorbitex 1 packet PO SUTUTHSA@0800 07/24/23 03/26/24 [Veltassa] Sevelamer Carbonate 2,400 mg PO AC-TID@07/24/23 03/26/24 Sodium Bicarbonate Tab 650 mg PO BID@08,199907/24/23 03/26/24 Tamsulosin [Flomax] 0.4 mg PO HS@199907/24/23 03/26/24 Amiodarone [Cordarone] 100 mg PO DAILY@0800 09/13/23 03/26/24 Acetaminophen [Tylenol Extra 1,000 mg PO TID PRN 03/26/24 03/26/24 Strength] Albuterol Sulfate [Albuterol 1 puff PO RT-QID PRN 03/26/24 03/26/24 Sulfate Hfa] Apixaban [Eliquis] 5 mg PO BID@0800,199903/26/24 03/26/24 Budesonide/Formoterol Fumarate 1 puff INHALATION RT-BID@08,199903/26/24 03/26/24 [Breyna 160-4.5 Mcg Inhaler] Buprenorphine [Butrans 10 MCG/HOUR] 1 patch TRANSDERM SA@0803/26/24 03/26/24 Diclofenac Sodium [Diclofenac 1 applic TOPICAL QID PRN 03/26/24 03/26/24 Sodium 1%] Gabapentin [Neurontin] 200 mg PO TID@0800,170,199903/26/24 03/26/24 HYDROcodone/APAP 7.5-325MG [[place] 1 tab PO TID PRN 03/26/24 03/26/24 7.5-325] Loperamide HCl [Loperamide] 2 mg PO QID PRN 03/26/24 03/26/24 Loratadine [Claritin] 10 mg PO DAILY@0803/26/24 03/26/24 Melatonin 3 mg PO HS PRN 03/26/24 03/26/24 Menthol [Biofreeze] 1 applic TOPICAL BID PRN 03/26/24 03/26/24 Metoprolol Tartrate [Lopressor] 25 mg PO BID@08,199903/26/24 03/26/24 Phenol 1.4% [place] [Sore Throat 1 applic MUCOUS MEM Q2H PRN 03/26/24 03/26/24 [place] (Chloraseptic)] Sennosides [Senokot] 17.2 mg PO DAILY@0803/26/24 03/26/24 Sevelamer Carbonate 800 mg PO HS@199903/26/24 03/26/24 guaiFENesin [guaiFENesin Oral 400 mg PO QID PRN 03/26/24 03/26/24 Solution] methocarbamoL [Robaxin] 500 mg PO HS@199903/26/24 03/26/24 methocarbamoL [Robaxin] 500 mg PO TID PRN 03/26/24 03/26/24 Previous Rx's Medication Instructions Recorded Nitroglycerin Sl Tabs [Nitrostat] 0.4 mg SUBLINGUAL Q5M PRN tab 07/28/23 Allergies Allergy/AdvReac Type Severity Reaction Status Date / Time No Known Allergies Allergy Verified 03/25/24 19:13 Review of Systems ROS Statement: Those systems with pertinent positive or pertinent negative responses have been documented in the HPI. ROS Other: All systems not noted in ROS Statement are negative. Past Medical History Past Medical History: Atrial Fibrillation, Dialysis, GERD/Reflux, Hyperli pidemia, Hypertension Additional Past Medical History / Comment(s): BPH, spinal arthritis, severe neuropathy of feet bilaterally, TBI History of Any Multi-Drug Resistant Organisms: None Reported Past Surgical History: Heart Catheterization, Hernia Repair Additional Past Surgical History / Comment(s): AV fistula placed Past Anesthesia/Blood Transfusion Reactions: No Reported Reaction Past Psychological History: No Psychological Hx Reported Smoking Status: Current every day smoker Past Alcohol Use History: None Reported Past Drug Use History: None Reported General Exam General appearance: alert, in no apparent distress Head exam: Present: atraumatic, normocephalic, normal inspection Eye exam: Present: normal appearance, EOMI Neck exam: Present: normal inspection. Absent: meningismus Respiratory exam: Present: normal lung sounds bilaterally. Absent: respiratory distress, wheezes, rales, rhonchi, stridor Cardiovascular Exam: Present: tachycardia, irregular rhythm, normal heart sounds. Absent: systolic murmur, diastolic murmur, rubs, gallop, clicks GI/Abdominal exam: Present: distended. Absent: tenderness, guarding, rebound, rigid Neurological exam: Present: alert (Baseline mental status) Psychiatric exam: Present: normal affect, normal mood Skin exam: Present: warm, dry Course Vital Signs 03/25/24 03/25/24 03/25/24 19:04 19:23 20:34 Temperature 98.2 F Pulse Rate 135 H 133 H 130 H Respiratory 19 21 18 Rate Blood Pressure 112/86 118/81 111/75 O2 Sat by Pulse 94 L 94 L 94 L Oximetry 03/25/24 03/26/24 03/26/24 21:33 01:45 03:49 Temperature Pulse Rate 131 H 138 H 137 H Respiratory 20 18 18 Rate Blood Pressure 94/80 115/73 104/65 O2 Sat by Pulse 95 93 L 95 Oximetry 03/26/24 03/26/24 03/26/24 06:31 07:15 07:36 Temperature 98.4 F Pulse Rate 135 H 135 H Respiratory 18 18 Rate Blood Pressure 118/96 118/92 O2 Sat by Pulse 96 98 Oximetry 03/26/24 03/26/24 03/26/24 08:00 08:35 09:06 Temperature Pulse Rate 133 H 133 H 120 H Respiratory 20 20 18 Rate Blood Pressure 121/93 111/83 114/91 O2 Sat by Pulse 99 97 97 Oximetry 03/26/24 03/26/24 03/26/24 10:06 11:11 11:26 Temperature Pulse Rate 134 H 96 117 H Respiratory 18 18 18 Rate Blood Pressure 125/89 93/76 107/78 O2 Sat by Pulse 98 97 97 Oximetry 03/26/24 03/26/24 03/26/24 11:58 12:04 12:11 Temperature Pulse Rate 128 H 69 68 Respiratory 18 18 18 Rate Blood Pressure 118/87 109/80 109/80 O2 Sat by Pulse 97 97 97 Oximetry Medical Decision Making - Medical Decision Making Was pt. sent in by a medical professional or institution (, PA, [employer]ANT OPERATOR, urgent care, hospital, or care home...) When possible be specific @ -No Did you speak to anyone other than the patient for history (EMS, parent, family, police, friend...)? What history was obtained from this source @ -Majority of the history was obtained from the patient's sister over phone call Did you review nursing and triage notes (agree or disagree)? Why? @ -I reviewed and agree with nursing and triage notes Were old charts reviewed (outside hosp., previous admission, EMS record, old EKG, old radiological studies, urgent care reports/EKG's, care home records)? Report findings @ -No old charts were reviewed Differential Diagnosis (chest pain, altered mental status, abdominal pain women, abdominal pain men, vaginal bleeding, weakness, fever, dyspnea, syncope, headache, dizziness, GI bleed, back pain, seizure, CVA, palpatations, mental health, musculoskeletal)? @ -Differential Palpitations Ventricular arrhythmias, atrial arrhythmias, myocardial infarction, anemia, thyrotoxicosis, electrolyte imbalance, hypokalemia, pulmonary embolism, pulmonary disease, drugs, alcohol, anxiety, stress.... This is not meant to be an all-inclusive list. EKG interpreted by me (3pts min.). @ -EKG shows atrial flutter/tachycardia with rapid ventricular response. Ventricular rate 132. QRS 96. QT 293. QTc 371. X-rays interpreted by me (1pt min.). @ -Chest x-ray shows no acute process CT interpreted by me (1pt min.). @ -None done U/S interpreted by me (1pt. min.). @ -None done What testing was considered but not performed or refused? (CT, X-rays, U/S, labs)? Why? @ -None What meds were considered but not given or refused? Why? @ -None Did you discuss the management of the patient with other professionals (professionals i.e. DrVictor M, PA, [employer] OPERATOR, lab, RT, psych nurse, social sciences lecturer, bioinformatician, te acher, audit officer, manager case)? Give summary @ -Spoke with the [facility] provider on-call who accepts admission Was smoking cessation discussed for >3mins.? @ -No Was critical care preformed (if so, how long)? @ -No Were there social determinants of health that impacted care today? How? (Homelessness, low income, unemployed, alcoholism, drug addiction, transportation, low edu. Level, literacy, decrease access to med. care, skilled nursing, rehab)? @ -No Was there de-escalation of care discussed even if they declined (Discuss DNR or withdrawal of care, Hospice)? DNR status @ -No What co-morbidities impacted this encounter? (DM, HTN, Smoking, COPD, CAD, Cancer, CVA, ARF, Chemo, Hep., AIDS, mental health diagnosis, sleep apnea, morbid obesity)? @ -None Was patient admitted / discharged? Hospital course, mention meds given and route, prescriptions, significant lab abnormalities, going to OR and other pertinent info. @ -68-year-old male presenting with chief complaint of elevated heart rate. H istory and physical examination are conducted. Patient is in atrial a flutter with RVR, rate ranging in the 130s. History of A-fib, patient is anticoagulated on Eliquis. Patient is started on Cardizem drip at rate of 5 mg/h. Blood pressure is stable. Patient will be admitted for atrial flutter with RVR. Patient is agreeable with this plan. I discussed this case with my attending Dr. Jolley Undiagnosed new problem with uncertain prognosis? @ -No Drug Therapy requiring intensive monitoring for toxicity (Heparin, Nitro, Insulin, Cardizem)? @ -No Were any procedures done? @ -No Diagnosis/symptom? @ -Atrial flutter with RVR Acute, or Chronic, or Acute on Chronic? @ -Acute Uncomplicated (without systemic symptoms) or Complicated (systemic symptoms)? @ -Complicated Side effects of treatment? @ -No Exacerbation, Progression, or Severe Exacerbation? @ -No Poses a threat to life or bodily function? How? (Chest pain, [place], CO, pneumonia, PE, COPD, DKA, ARF, appy, cholecystitis, CVA, Diverticulitis, Homicidal, Suicidal, threat to staff... and all critical care pts) @ -Yes - Lab Data Result diagrams: 03/29/24 07:52 03/29/24 07:52 Lab Results 03/25/24 03/25/24 03/25/24 Range/Units 19:47 19:47 19:47 WBC 10.8 H (3.8-10.6) k/uL RBC 3.76 L (4.30-5.90) m/uL Hgb 11.6 L (13.0-17.5) gm/dL Hct 35.5 L (39.0-53.0) % MCV 94.6 (80.0-100.0) fL MCH 30.9 (25.0-35.0) pg MCHC 32.7 (31.0-37.0) g/dL RDW 14.2 (11.5-15.5) % Plt Count 204 (150-450) k/uL MPV 8.0 Neutrophils % 78 % Lymphocytes % 13 % Monocytes % 6 % Eosinophils % 2 % Basophils % 1 % Neutrophils # 8.4 H (1.3-7.7) k/uL Lymphocytes # 1.4 (1.0-4.8) k/uL Monocytes # 0.7 (0-1.0) k/uL Eosinophils # 0.2 (0-0.7) k/uL Basophils # 0.1 (0-0.2) k/uL Sodium 136 L (137-145) mmol/L Potassium 5.2 H (3.5-5.1) mmol/L Chloride 98 (98-107) mmol/L Carbon Dioxide 31 H (22-30) mmol/L Anion Gap 7 mmol/L BUN 28 H (9-20) mg/dL Creatinine 4.00 H (0.66-1.25) mg/dL Est GFR (CKD-EPI)AfAm 17 (>60 ml/min/1.73 sqM) Est GFR (CKD-EPI)NonAf 15 (>60 ml/min/1.73 sqM) Glucose 114 H (74-99) mg/dL Plasma Lactic Acid Jason 1.5 (0.7-2.0) mmol/L Calcium 7.8 L (8.4-10.2) mg/dL Total Bilirubin 0.6 (0.2-1.3) mg/dL AST 21 (17-59) U/L ALT 16 (4-49) U/L Alkaline Phosphatase 90 (38-126) U/L Troponin I (0.000-0.034) ng/mL Total Protein 7.1 (6.3-8.2) g/dL Albumin 4.1 (3.5-5.0) g/dL Amylase 58 (30-110) U/L Lipase 154 (23-300) U/L Urine Color Urine Appearance (Clear) Urine pH (5.0-8.0) Ur Specific [place]atch (1.001-1.035) Urine Protein (Negative) Urine Glucose (UA) (Negative) Urine Ketones (Negative) Urine Blood (Negative) Urine Nitrite (Negative) Urine Bilirubin (Negative) Urine Urobilinogen (<2.0) mg/dL Ur Leukocyte Esterase (Negative) Urine RBC (0-5) /hpf Urine WBC (0-5) /hpf 03/25/24 03/25/24 Range/Units 19:47 19:47 WBC (3.8-10.6) k/uL RBC (4.30-5.90) m/uL Hgb (13.0-17.5) gm/dL Hct (39.0-53.0) % MCV (80.0-100.0) fL MCH (25.0-35.0) pg MCHC (31.0-37.0) g/dL RDW (11.5-15.5) % Plt Count (150-450) k/uL MPV Neutrophils % % Lymphocytes % % Monocytes % % Eosinophils % % Basophils % % Neutrophils # (1.3-7.7) k/uL Lymphocytes # (1.0-4.8) k/uL Monocytes # (0-1.0) k/uL Eosinophils # (0-0.7) k/uL Basophils # (0-0.2) k/uL Sodium (137-145) mmol/L Potassium (3.5-5.1) mmol/L Chloride (98-107) mmol/L Carbon Dioxide (22-30) mmol/L Anion Gap mmol/L BUN (9-20) mg/dL Creatinine (0.66-1.25) mg/dL Est GFR (CKD-EPI)AfAm (>60 ml/min/1.73 sqM) Est GFR (CKD-EPI)NonAf (>60 ml/min/1.73 sqM) Glucose (74-99) mg/dL Plasma Lactic Acid Jason (0.7-2.0) mmol/L Calcium (8.4-10.2) mg/dL Total Bilirubin (0.2-1.3) mg/dL AST (17-59) U/L ALT (4-49) U/L Alkaline Phosphatase (38-126) U/L Troponin I 0.028 (0.000-0.034) ng/mL Total Protein (6.3-8.2) g/dL Albumin (3.5-5.0) g/dL Amylase (30-110) U/L Lipase (23-300) U/L Urine Color Colorless Urine Appearance Clear (Clear) Urine pH 8.0 (5.0-8.0) Ur Specific [place] 1.004 (1.001-1.035) Urine Protein 1+ H (Negative) Urine Glucose (UA) Trace H (Negative) Urine Ketones Negative (Negative) Urine Blood Trace H (Negative) Urine Nitrite Negative (Negative) Urine Bilirubin Negative (Negative) Urine Urobilinogen <2.0 (<2.0) mg/dL Ur Leukocyte Esterase Negative (Negative) Urine RBC 1 (0-5) /hpf Urine WBC <1 (0-5) /hpf Disposition Clinical Impression: Atrial flutter with rapid ventricular response Disposition: ADMITTED IP TO THIS HOSP Condition: Fair Time of Disposition: 22:40
[2024-03-25] MEDS: DILTIAZEM 125 MG in SODIUM CHLORIDE 0.9% 100 ML IV SCH (20:34)
[2024-03-25] MEDS: SODIUM CHLORIDE 0.9% 1,000 ML IV SCH (22:00)
[2024-03-25 22:04] LABS: Appearance,Urine Clear (Clear); Bilirubin,Urine Negative (Negative); Blood,Urine Trace (Negative); Color,Urine Colorless; Glucose,Urine (UA) Trace (Negative); Ketones,Urine Negative (Negative); Leukocyte Esterase,Urine Negative (Negative); Nitrite,Urine Negative (Negative); Protein,Urine 1+ (Negative); RBC,Urine 1 /hpf (0-5); Specific Gravity,Urine 1.004 (1.001-1.035); Urobilinogen,Urine <2.0 mg/dL (<2.0); WBC,Urine <1 /hpf (0-5)
[2024-03-25] MEDS: SODIUM CHLORIDE 0.9% 500 ML 500 ML IV ONE (22:04)
[2024-03-25] MEDS ORDERED: NALOXONE 0.4 MG/ML 1 ML VIAL IV PRN (22:39)
[2024-03-26] MEDS ORDERED: DILTIAZEM 125 MG in SODIUM CHLORIDE 0.9% 100 ML IV SCH (07:45)
[2024-03-26] MEDS ORDERED: NITROGLYCERIN SL TABS 0.4 MG TAB SUBLINGUAL PRN (08:59)
[2024-03-26] MEDS ORDERED: fentaNYL (PF) 50 MCG/ML 5 ML AMP IVP PRN (09:16)
[2024-03-26] MEDS ORDERED: BENZOCAINE SPRAY 1 CAN TOPICAL PRN (09:16)
[2024-03-26] MEDS ORDERED: MIDAZOLAM 2 MG/2 ML VIAL IV PRN (09:16)
[2024-03-26 09:23] LABS: Partial Thromboplastin Time 25.1 sec (22.0-30.0); Prothrombin Time 10.8 sec (10.0-12.5)
[2024-03-26] MEDS ORDERED: SEVELAMER 800 MG TAB PO SCH ×2 (09:30→20:00)
[2024-03-26] MEDS: METOPROLOL TARTRATE 25 MG TAB PO SCH ×2 (09:41→20:32)
[2024-03-26] MEDS: APIXABAN 5 MG TAB PO SCH (09:41)
[2024-03-26] MEDS: PANTOPRAZOLE 40 MG TABLET PO SCH (09:41)
[2024-03-26] MEDS: GABAPENTIN 100 MG CAP PO SCH ×2 (09:41→16:43)
[2024-03-26] MEDS: PATIROMER CALCIUM SORBITEX 8.4 GM PO SCH (09:46)
[2024-03-26] MEDS: SODIUM BICARBONATE TAB 650 MG TAB PO SCH (10:05)
--- NOTE | 2024-03-26 10:29 | P.NPCON ---
History of Present Illness - Reason for Consult end stage renal disease - History of Present Illness Reason for consultation: End-stage renal disease History of present illness: Patient is a 68-year-old male seen in renal consultation for end-stage renal disease. He is maintained on hemodialysis on Monday schedule. Patient went to hemodialysis yesterday and then took the bus to [facility]. Patient did complete his hemodialysis yesterday. It is noted the patient was complaining of upset stomach as well as dizziness and was subsequently brought to the hospital. Patient is noted to be in a flutter and is currently maintained on Cardizem drip. Cardioversion is being considered. Cardiology is following. He denies chest pain or shortness of breath. Denies history of diabetes or coronary artery disease. No vomiting or diarrhea. Blood pressure stable. He is on 3 L nasal cannula. He does make urine. Vital signs are stable. General: No acute distress. HEENT: Head exam is unremarkable. On nasal cannula. LUNGS: No audible rhonchi or wheezes. HEART: Irregular rate and rhythm. ABDOMEN: Nontender. EXTREMITITES: No edema. Past Medical History Past Medical History: Atrial Fibrillation, Dialysis, GERD/Reflux, Hyperlipidemia, Hypertension Additional Past Medical History / Comment(s): BPH, spinal arthritis, severe neuropathy of feet bilaterally, TBI History of Any Multi-Drug Resistant Organisms: None Reported Past Surgical History: Heart Catheterization, Hernia Repair Additional Past Surgical History / Comment(s): AV fistula placed Past Anesthesia/Blood Transfusion Reactions: No Reported Reaction Past Psychological History: No Psychological Hx Reported Smoking Status: Current every day smoker Past Alcohol Use History: None Reported Past Drug Use History: None Reported Medications and Allergies Home Medications Medication Instructions Recorded Confirmed Type Atorvastatin [Lipitor] 10 mg PO HS@199907/24/23 03/26/24 History Cyanocobalamin [Vitamin B-12] 500 mcg PO DAILY@0807/24/23 03/26/24 History Omeprazole [PriLOSEC] 20 mg PO BID@07/24/23 03/26/24 History Patiromer Calcium Sorbitex 1 packet PO SUTUTHSA@0800 07/24/23 03/26/24 History [Veltassa] Sevelamer Carbonate 2,400 mg PO AC-TID@08121730 07/24/23 03/26/24 History Sodium Bicarbonate Tab 650 mg PO BID@0800,199907/24/23 03/26/24 History Tamsulosin [Flomax] 0.4 mg PO HS@199907/24/23 03/26/24 History Nitroglycerin Sl Tabs [Nitrostat] 0.4 mg SUBLINGUAL Q5M PRN tab 07/28/23 03/26/24 Rx Amiodarone [Cordarone] 100 mg PO DAILY@0800 09/13/23 03/26/24 History Acetaminophen [Tylenol Extra 1,000 mg PO TID PRN 03/26/24 03/26/24 History Strength] Albuterol Sulfate [Albuterol 1 puff PO RT-QID PRN 03/26/24 03/26/24 History Sulfate Hfa] Apixaban [Eliquis] 5 mg PO BID@0800,199903/26/24 03/26/24 History Budesonide/Formoterol Fumarate 1 puff INHALATION RT-BID@0800,199903/26/24 03/26/24 History [Breyna 160-4.5 Mcg Inhaler] Buprenorphine [Butrans 10 MCG/HOUR] 1 patch TRANSDERM SA@0803/26/24 03/26/24 History Diclofenac Sodium [Diclofenac 1 applic TOPICAL QID PRN 03/26/24 03/26/24 History Sodium 1%] Gabapentin [Neurontin] 200 mg PO TID@0800,1700,199903/26/24 03/26/24 History HYDROcodone/APAP 7.5-325MG [[place] 1 tab PO TID PRN 03/26/24 03/26/24 History 7.5-325] Loperamide HCl [Loperamide] 2 mg PO QID PRN 03/26/24 03/26/24 History Loratadine [Claritin] 10 mg PO DAILY@0800 03/26/24 03/26/24 History Melatonin 3 mg PO HS PRN 03/26/24 03/26/24 History Menthol [Biofreeze] 1 applic TOPICAL BID PRN 03/26/24 03/26/24 History Metoprolol Tartrate [Lopressor] 25 mg PO BID@0800,199903/26/24 03/26/24 History Phenol 1.4% [place] [Sore Throat 1 applic MUCOUS MEM Q2H PRN 03/26/24 03/26/24 History [place] (Chloraseptic)] Sennosides [Senokot] 17.2 mg PO DAILY@0800 03/26/24 03/26/24 History Sevelamer Carbonate 800 mg PO HS@199903/26/24 03/26/24 History guaiFENesin [guaiFENesin Oral 400 mg PO QID PRN 03/26/24 03/26/24 History Solution] methocarbamoL [Robaxin] 500 mg PO HS@199903/26/24 03/26/24 History methocarbamoL [Robaxin] 500 mg PO TID PRN 03/26/24 03/26/24 History Allergies Allergy/AdvReac Type Severity Reaction Status Date / Time No Known Allergies Allergy Verified 03/25/24 19:13 Physical Exam Vitals: Vital Signs Temp Pulse Resp BP Pulse Ox 03/26/24 10:06 134 H 18 125/89 98 03/26/24 09:06 120 H 18 114/91 97 03/26/24 08:35 133 H 20 111/83 97 03/26/24 08:00 133 H 20 121/93 99 03/26/24 07:36 98.4 F 03/26/24 07:15 135 H 18 118/92 98 03/26/24 06:31 135 H 18 118/96 96 03/26/24 03:49 137 H 18 104/65 95 03/26/24 01:45 138 H 18 115/73 93 L 03/25/24 21:33 131 H 20 94/80 95 03/25/24 20:34 130 H 18 111/75 94 L 03/25/24 19:23 133 H 21 118/81 94 L 03/25/24 19:04 98.2 F 135 H 19 112/86 94 L Intake and Output 03/25/24 03/26/24 03/26/24 22:59 06:59 14:59 Intake Total 55.667 Balance 55.667 Intake: Intake, IV Titration 55.667 Amount Diltiazem 125 mg In 55.667 Sodium Chloride 0.9% 100 ml @ 10 MG/HR 10 mls/hr IV .[id number] [facility] Rx#: [id number] Other: Weight 80.286 kg Results - Lab Results Most recent lab results Calcium 7.8 mg/dL (8.4-10.2) L 03/25/24 19:47 03/25/24 19:47 03/25/24 19:47 Assessment and Plan Plan: Assessment: 1. End-stage renal disease maintained on hemodialysis on Monday schedule. 2. A flutter maintained on Cardizem drip. Cardiology following. 3. Hypertension with chronic kidney disease. Stable. 4. Chronic kidney disease mineral bone disease maintained on Renvela. Plan: Hemodialysis tomorrow. Stop oral bicarb. Hep-Lock IV fluids. Decrease dose of gabapentin to 100 mg 3 times daily. Thank you for the consultation. I will continue to follow the patient with you during his hospital stay.
[2024-03-26] MEDS ORDERED: methocarbamoL 500 MG TAB PO PRN (10:51)
[2024-03-26] MEDS ORDERED: METHYL SALICYLATE-MENTHOL OINT (3 OZ TUBE) TOPICAL PRN (10:51)
[2024-03-26] MEDS ORDERED: guaiFENesin SYRUP 100MG/5ML 200 MG/10 ML CUP PO PRN (10:51)
[2024-03-26] MEDS ORDERED: MELATONIN 3 MG TABLET PO PRN (10:51)
[2024-03-26] MEDS ORDERED: Phenol 1.4% Sore Throat Spray Bottle MUCOUS MEM PRN (10:51)
[2024-03-26] MEDS ORDERED: ALBUTEROL NEBULIZED 2.5 MG/3 ML INHALATION PRN (10:51)
--- NOTE | 2024-03-26 11:03 | P.HPIM ---
History of Present Illness H&P Date: 03/26/24 Patient was initally admitted on 03/26/2024 at 12:08 AM and was initially admit lexi under [facility] hospitalist group, however, patient follows with [facility] and we were notified of admission at 8:23 AM. History of Presenting Illness: Patient is a pleasant 68-year-old male with a past medical history of CAD, paroxysmal atrial fibrillation on anticoagulation with Eliquis, hypertension, hyperlipidemia, ESRD on dialysis( Monday/Monday/Monday), BPH, severe neuropathy of bilateral lower extremities, and nicotine dependence. He presented to the emergency department on 03/25/2024 secondary to reports of nausea and tachycardia. Upon arrival to our facility, patient underwent evaluation in the emergency department. Vital signs upon arrival show blood pressure 112/86, heart rate 135, respiratory rate 19, temp 98.2 F, and SpO2 of 94% on room air. EKG completed showing atrial flutter at 132 bpm. Chest x-ray negative for acute cardiopulmonary process. Labs completed and reviewed. CBC showing leukocytosis with WBC count of 10.8 and hemoglobin of 11.6. Coagulation normal findings. BMP showing hyponatremia with sodium of 136 and mild hyperkalemia with potassium of 5.2, bicarb elevated at 31 and renal function consistent with known ESRD with BUN of 28, creatinine of 4.00, GFR of 15. Blood glucose 114. Lactic acid normal findings at 1.5. Liver profile unremarkable. Troponin was 0.028. Patient was started on Cardizem infusion and admitted under our services with consultation to cardiology and nephrology. Patient currently free from any complaints including headache, lightheadedness, dizziness, chest pain, palpitations, shortness of breath, cough or congestion, abdominal pain, nausea, vomiting, or experiencing any numbness/tingling/weakness in his extremities. He does report his restless legs are acting up, but states this is chronic pain and unchanged from baseline. Review of systems: Pertinent positives and negatives as discussed in HPI, a complete review of systems was performed and all other systems are negative. Physical exam: Vital signs reviewed and stable. General: Nontoxic, no distress and appears stated age. Derm: Skin warm and dry, normal coloration for ethnicity. Head: Atraumatic, normocephalic and symmetric. Eyes: EOM's intact, no lid lag, and anicteric sclera Mouth: no lip lesions, mucus membranes moist Cardiovascular: regular rhythm with tachycardic rate, no obvious murmur noted, positive posterior tibial pulses bilaterally, and cap refill < 2 seconds. Lungs: Respirations even, regular, and unlabored on room air. Lungs CTA bilaterally, no rhonchi, no rales, no wheezing, and no accessory muscle usage. Abdominal: soft, nontender to palpation, no guarding, no appreciable organomegaly Ext: ROM intact. No gross muscle atrophy, no edema, no contractures Neuro: Speech clear, face symmetrical and CN II-XII grossly intact with no noted focal neuro deficits Psych: Alert and oriented to person, place, time, and situation. Appropriate and pleasant affect. Assessment and Plan of Care: Atrial flutter with RVR -Cardiology consulted, planning to take patient for cardioversion tomorrow morning. -Continue Cardizem infusion at 15 mg/h -Hold amiodarone while patient is on Cardizem infusion. -Continue metoprolol 25 mg twice daily and Eliquis 5 mg twice daily. -Patient to remain on continuous telemetry monitoring. ESRD on hemodialysis Hyperkalemia -Nephrology consulted for management of hemodialysis. -Patient to remain on continuous telemetry monitoring. -Continue Renvela 2400 mg 3 times daily with meals and 800 mg at bedtime. CAD Hypertension Hyperlipidemia -Patient to continue daily medication regimen with Eliquis 5 mg twice daily, atorvastatin 10 mg nightly, and metoprolol 25 mg twice daily. Severe peripheral neuropathy -Continue gabapentin 200 mg 3 times daily. BPH -Continue Flomax 0.4 mg nightly. Data and imaging reviewed: As stated above in HPI The patient is admitted with an anticipated greater than 2 midnight stay for evaluation of persistent atrial flutter with RVR CODE STATUS: Full code DVT prophylaxis: Eliquis Anticipated discharge date: Pending clinical course Anticipated discharge place: Home Patient was seen independently by Nurse Practitioner. This document was prepared using [employer]OCK[employer] dictation software. 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 Harpal Kaufman NP rendered care for this patient independently, reviewed the findings and plan as documented in the note above and agree with plan. I did not physically speak with or examine the patient on this date. Past Medical History Past Medical History: Atrial Fibrillation, Dialysis, GERD/Reflux, Hyperlipidemia, Hypertension Additional Past Medical History / Comment(s): BPH, spinal arthritis, severe neuropathy of feet bilaterally, TBI History of Any Multi-Drug Resistant Organisms: None Reported Past Surgical History: Heart Catheterization, Hernia Repair Additional Past Surgical History / Comment(s): AV fistula placed Past Anesthesia/Blood Transfusion Reactions: No Reported Reaction Past Psychological History: No Psychological Hx Reported Smoking Status: Current every day smoker Past Alcohol Use History: None Reported Past Drug Use History: None Reported Medications and Allergies Home Medications Medication Instructions Recorded Confirmed Type Atorvastatin [Lipitor] 10 mg PO HS@199907/24/23 03/26/24 History Cyanocobalamin [Vitamin B-12] 500 mcg PO DAILY@0800 07/24/23 03/26/24 History Omeprazole [PriLOSEC] 20 mg PO BID@799,199907/24/23 03/26/24 History Patiromer Calcium Sorbitex 1 packet PO SUTUTHSA@79907/24/23 03/26/24 History [Veltassa] Sevelamer Carbonate 2,400 mg PO AC-TID@08,12,1730 07/24/23 03/26/24 History Sodium Bicarbonate Tab 650 mg PO BID@08,199907/24/23 03/26/24 History Tamsulosin [Flomax] 0.4 mg PO HS@199907/24/23 03/26/24 History Nitroglycerin Sl Tabs [Nitrostat] 0.4 mg SUBLINGUAL Q5M PRN tab 07/28/23 03/26/24 Rx Amiodarone [Cordarone] 100 mg PO DAILY@0800 09/13/23 03/26/24 History Acetaminophen [Tylenol Extra 1,000 mg PO TID PRN 03/26/24 03/26/24 History Strength] Albuterol Sulfate [Albuterol 1 puff PO RT-QID PRN 03/26/24 03/26/24 History Sulfate Hfa] Apixaban [Eliquis] 5 mg PO BID@799,199903/26/24 03/26/24 History Budesonide/Formoterol Fumarate 1 puff INHALATION RT-BID@799,199903/26/24 03/26/24 History [Breyna 160-4.5 Mcg Inhaler] Buprenorphine [Butrans 10 MCG/HOUR] 1 patch TRANSDERM SA@0800 03/26/24 03/26/24 History Diclofenac Sodium [Diclofenac 1 applic TOPICAL QID PRN 03/26/24 03/26/24 History Sodium 1%] Gabapentin [Neurontin] 200 mg PO TID@0800,170,199903/26/24 03/26/24 History HYDROcodone/APAP 7.5-325MG [[place] 1 tab PO TID PRN 03/26/24 03/26/24 History 7.5-325] Loperamide HCl [Loperamide] 2 mg PO QID PRN 03/26/24 03/26/24 History Loratadine [Claritin] 10 mg PO DAILY@0803/26/24 03/26/24 History Melatonin 3 mg PO HS PRN 03/26/24 03/26/24 History Menthol [Biofreeze] 1 applic TOPICAL BID PRN 03/26/24 03/26/24 History Metoprolol Tartrate [Lopressor] 25 mg PO BID@799,199903/26/24 03/26/24 History Phenol 1.4% [place] [Sore Throat 1 applic MUCOUS MEM Q2H PRN 03/26/24 03/26/24 History [place] (Chloraseptic)] Sennosides [Senokot] 17.2 mg PO DAILY@79903/26/24 03/26/24 History Sevelamer Carbonate 800 mg PO HS@199903/26/24 03/26/24 History guaiFENesin [guaiFENesin Oral 400 mg PO QID PRN 03/26/24 03/26/24 History Solution] methocarbamoL [Robaxin] 500 mg PO HS@199903/26/24 03/26/24 History methocarbamoL [Robaxin] 500 mg PO TID PRN 03/26/24 03/26/24 History Allergies Allergy/AdvReac Type Severity Reaction Status Date / Time No Known Allergies Allergy Verified 03/25/24 19:13 Physical Exam Vitals: Vital Signs Temp Pulse Resp BP Pulse Ox 03/26/24 08:35 133 H 20 111/83 97 03/26/24 08:00 133 H 20 121/93 99 03/26/24 07:36 98.4 F 03/26/24 07:15 135 H 18 118/92 98 03/26/24 06:31 135 H 18 118/96 96 11/19/24 03:49 137 H 18 104/65 95 03/26/24 01:45 138 H 18 115/73 93 L 03/25/24 21:33 131 H 20 94/80 95 03/25/24 20:34 130 H 18 111/75 94 L 03/25/24 19:23 133 H 21 118/81 94 L 03/25/24 19:04 98.2 F 135 H 19 112/86 94 L Intake and Output 03/25/24 03/26/24 03/26/24 22:59 06:59 14:59 Intake Total 55.667 Balance 55.667 Intake: Intake, IV Titration 55.667 Amount Diltiazem 125 mg In 55.667 Sodium Chloride 0.9% 100 ml @ 10 MG/HR 10 mls/hr IV .[id number] [facility] Rx#: [id number] Other: Weight 80.286 kg Results CBC & Chem 7: 03/25/24 19:47 03/25/24 19:47 Labs: Abnormal Lab Results - Last 24 Hours (Table) 03/25/24 03/25/24 03/25/24 Range/Units 19:47 19:47 19:47 WBC 10.8 H (3.8-10.6) k/uL RBC 3.76 L (4.30-5.90) m/uL Hgb 11.6 L (13.0-17.5) gm/dL Hct 35.5 L (39.0-53.0) % Neutrophils # 8.4 H (1.3-7.7) k/uL Sodium 136 L (137-145) mmol/L Potassium 5.2 H (3.5-5.1) mmol/L Carbon Dioxide 31 H (22-30) mmol/L BUN 28 H (9-20) mg/dL Creatinine 4.00 H (0.66-1.25) mg/dL Glucose 114 H (74-99) mg/dL Calcium 7.8 L (8.4-10.2) mg/dL Urine Protein 1+ H (Negative) Urine Glucose (UA) Trace H (Negative) Urine Blood Trace H (Negative)
[2024-03-26] MEDS: SEVELAMER 800 MG TAB PO SCH ×2 (11:24→20:32)
[2024-03-26] MEDS: DILTIAZEM DRIP BOLUS FROM BAG 1 MG SOLN IV ONE (12:01)
--- NOTE | 2024-03-26 14:14 | P.CRDCN ---
History of Present Illness Consult date: 03/26/24 Reason for Consult (text): Atrial flutter with RVR History of present illness: This is a 68-year-old male patient of Dr. Paulo Blandon with past medical history of end-stage renal disease on hemodialysis Monday, atrial flutter, hypertension, dyslipidemia. We have been asked to evaluate the patient for atrial flutter with RVR. Patient states he does not know why he is here he said they just brought me in here. Patient apparently resides at [facility] and was having some GI upset with nausea and vomiting and then was complaining of some dizziness and heart rate was found to be 130 and he was brought in to the emergency center for evaluation. Patient has been in atrial flutter fluctuating between about 90-130. Discussed cardioversion with the patient and he is agreeable to move forward. He denies having any chest pain, no palpitations, no lightheadedness or dizziness. Blood pressure 115/69, heart rate 68, pulse ox 95% on room air. Patient has been started on Cardizem drip which was increased to 10 mg/h. Patient has been resumed on Eliquis. -EKG: Atrial flutter at 132 bpm -Chest x-ray: No acute process -Laboratory studies: WBC 10.8, hemoglobin 11.6. Sodium 136, potassium 5.2, BUN 28 creatinine 4. Troponin negative x 1. -Home cardiac medications: Amiodarone 100 mg daily, Eliquis 5 mg twice daily, atorvastatin 10 mg at bedtime, Lopressor 25 mg twice daily, Nitrostat as needed. -Echocardiogram performed 07/25/2023 reveals EF 60 to 65%, mild mitral regurgitation, mild aortic regurgitation. -Lexiscan Cardiolite stress test performed 07/25/2023: Manage defect involving the apical lateral myocardium with no definite reversible area of ischemia. Review Of Systems: At the time of my exam: CONSTITUTIONAL: Denies fever or chills. HEENT: Denies blurred vision, vision changes, or eye pain. Denies hemoptysis CARDIOVASCULAR: Denies chest pain. Denies orthopnea. Denies PND. Denies palpita tions RESPIRATORY: Denies shortness of breath. GASTROINTESTINAL: Denies abdominal pain. Denies nausea or vomiting. HEMATOLOGIC: Denies bleeding disorders. GENITOURINARY: Denies any blood in urine. SKIN: Denies puritis. Denies rash. Physical examination: Gen: This is a 68-year-old male in no acute distress VS: reviewed HEENT: Head is atraumatic, normocephalic. Pupils equal, round. Sclerae is an icteric. NECK: Supple. No JVD. LUNGS: Clear to auscultation. No wheezes or rhonchi. No intercostal retractions. HEART: Regular rate and rhythm. No murmur. ABDOMEN: Soft No tenderness. EXTREMITIES: No pedal edema. No calf tenderness. NEUROLOGICAL: Patient is awake, alert and oriented x3. Assessment: Typical atrial flutter with RVR End-stage renal disease on hemodialysis Monday Hypertension Dyslipidemia Plan: Resume patient's home cardiac medications Continue Cardizem drip and give another bolus 5 mg and increase drip to 15 mg/h Continue Lopressor 25 mg twice daily Continue telemetry monitoring N.p.o. after midnight Patient scheduled for TONEY and cardioversion tomorrow with Dr. Blandon Further recommendations to follow based upon clinical course Thank you kindly for this consultation. Nurse practitioner note has been reviewed, I agree with documented findings and plan of care. Patient was seen and examined. Past Medical History Past Medical History: Atrial Fibrillation, Dialysis, GERD/Reflux, Hyperlipidemia, Hypertension Additional Past Medical History / Comment(s): BPH, spinal arthritis, severe neuropathy of feet bilaterally, TBI History of Any Multi-Drug Resistant Organisms: None Reported Past Surgical History: Heart Catheterization, Hernia Repair Additional Past Surgical History / Comment(s): AV fistula placed Past Anesthesia/Blood Transfusion Reactions: No Reported Reaction Past Psychological History: No Psychological Hx Reported Smoking Status: Current every day smoker Past Alcohol Use History: None Reported Past Drug Use History: None Reported Medications and Allergies Home Medications Medication Instructions Recorded Confirmed Type Atorvastatin [Lipitor] 10 mg PO HS@199907/24/23 03/26/24 History Cyanocobalamin [Vitamin B-12] 500 mcg PO DAILY@0807/24/23 03/26/24 History Omeprazole [PriLOSEC] 20 mg PO BID@799,199907/24/23 03/26/24 History Patiromer Calcium Sorbitex 1 packet PO SUTUTHSA@0800 07/24/23 03/26/24 History [Veltassa] Sevelamer Carbonate 2,400 mg PO AC-TID@08,12,1730 07/24/23 03/26/24 History Sodium Bicarbonate Tab 650 mg PO BID@08,199907/24/23 03/26/24 History Tamsulosin [Flomax] 0.4 mg PO HS@199907/24/23 03/26/24 History Nitroglycerin Sl Tabs [Nitrostat] 0.4 mg SUBLINGUAL Q5M PRN tab 07/28/23 03/26/24 Rx Amiodarone [Cordarone] 100 mg PO DAILY@0800 09/13/23 03/26/24 History Acetaminophen [Tylenol Extra 1,000 mg PO TID PRN 03/26/24 03/26/24 History Strength] Albuterol Sulfate [Albuterol 1 puff PO RT-QID PRN 03/26/24 03/26/24 History Sulfate Hfa] Apixaban [Eliquis] 5 mg PO BID@0800,199903/26/24 03/26/24 History Budesonide/Formoterol Fumarate 1 puff INHALATION RT-BID@08,199903/26/24 03/26/24 History [Breyna 160-4.5 Mcg Inhaler] Buprenorphine [Butrans 10 MCG/HOUR] 1 patch TRANSDERM SA@79903/26/24 03/26/24 History Diclofenac Sodium [Diclofenac 1 applic TOPICAL QID PRN 03/26/24 03/26/24 History Sodium 1%] Gabapentin [Neurontin] 200 mg PO TID@0800,1700,199903/26/24 03/26/24 History HYDROcodone/APAP 7.5-325MG [[place] 1 tab PO TID PRN 03/26/24 03/26/24 History 7.5-325] Loperamide HCl [Loperamide] 2 mg PO QID PRN 03/26/24 03/26/24 History Loratadine [Claritin] 10 mg PO DAILY@0800 03/26/24 03/26/24 History Melatonin 3 mg PO HS PRN 03/26/24 03/26/24 History Menthol [Biofreeze] 1 applic TOPICAL BID PRN 03/26/24 03/26/24 History Metoprolol Tartrate [Lopressor] 25 mg PO BID@0800,199903/26/24 03/26/24 History Phenol 1.4% [place] [Sore Throat 1 applic MUCOUS MEM Q2H PRN 03/26/24 03/26/24 History [place] (Chloraseptic)] Sennosides [Senokot] 17.2 mg PO DAILY@0800 03/26/24 03/26/24 History Sevelamer Carbonate 800 mg PO HS@199903/26/24 03/26/24 History guaiFENesin [guaiFENesin Oral 400 mg PO QID PRN 03/26/24 03/26/24 History Solution] methocarbamoL [Robaxin] 500 mg PO HS@199903/26/24 03/26/24 History methocarbamoL [Robaxin] 500 mg PO TID PRN 03/26/24 03/26/24 History Allergies Allergy/AdvReac Type Severity Reaction Status Date / Time No Known Allergies Allergy Verified 03/25/24 19:13 Physical Exam Vitals: Vital Signs Temp Pulse Resp BP Pulse Ox 03/26/24 08:35 133 H 20 111/83 97 03/26/24 08:00 133 H 20 121/93 99 03/26/24 07:36 98.4 F 03/26/24 07:15 135 H 18 118/92 98 03/26/24 06:31 135 H 18 118/96 96 03/26/24 03:49 137 H 18 104/65 95 03/26/24 01:45 138 H 18 115/73 93 L 03/25/24 21:33 131 H 20 94/80 95 03/25/24 20:34 130 H 18 111/75 94 L 03/25/24 19:23 133 H 21 118/81 94 L 03/25/24 19:04 98.2 F 135 H 19 112/86 94 L Intake and Output 03/25/24 03/26/24 03/26/24 22:59 06:59 14:59 Intake Total 55.667 Balance 55.667 Intake: Intake, IV Titration 55.667 Amount Diltiazem 125 mg In 55.667 Sodium Chloride 0.9% 100 ml @ 10 MG/HR 10 mls/hr IV .[id number] [facility] Rx#: [id number] Other: Weight 80.286 kg Results 03/25/24 19:47 11/18/24 19:47 Cardiac Enzymes 03/25/24 03/25/24 Range/Units 19:47 19:47 AST 21 (17-59) U/L Troponin I 0.028 (0.000-0.034) ng/mL CBC 03/25/24 Range/Units 19:47 WBC 10.8 H (3.8-10.6) k/uL RBC 3.76 L (4.30-5.90) m/uL Hgb 11.6 L (13.0-17.5) gm/dL Hct 35.5 L (39.0-53.0) % Plt Count 204 (150-450) k/uL Comprehensive Metabolic Panel 03/25/24 Range/Units 19:47 Sodium 136 L (137-145) mmol/L Potassium 5.2 H (3.5-5.1) mmol/L Chloride 98 (98-107) mmol/L Carbon Dioxide 31 H (22-30) mmol/L BUN 28 H (9-20) mg/dL Creatinine 4.00 H (0.66-1.25) mg/dL Glucose 114 H (74-99) mg/dL Calcium 7.8 L (8.4-10.2) mg/dL AST 21 (17-59) U/L ALT 16 (4-49) U/L Alkaline Phosphatase 90 (38-126) U/L Total Protein 7.1 (6.3-8.2) g/dL Albumin 4.1 (3.5-5.0) g/dL Current Medications Generic Name Dose Route Start Last Admin Trade Name Freq PRN Reason Stop Dose Admin Apixaban 5 mg 03/26/24 09:00 Apixaban 5 Mg Tab PO BID [facility] Protocol Atorvastatin Calcium 10 mg 03/26/24 21:00 Atorvastatin 10 Mg Tab PO HS ASMITA Gabapentin 200 mg 03/26/24 09:00 Gabapentin 100 Mg Cap PO TID [facility] Diltiazem HCl 125 mg/ Sodium 125 mls @ 10 mls/hr 03/25/24 20:00 03/26/24 07:42 Chloride IV 10 mg/hr .[id number] ASMITA 10 mls/hr Infusion 10 MG/HR Sodium Chloride 1,000 mls @ 75 mls/hr 03/25/24 21:45 03/25/24 22:00 Saline 0.9% IV 75 mls/hr .[id number] ASMITA Administration Metoprolol Tartrate 25 mg 03/26/24 09:00 Metoprolol Tartrate 25 Mg Tab PO BID [facility] Naloxone HCl 0.2 mg 03/25/24 22:39 Naloxone 0.4 Mg/Ml 1 Ml Vial IV Q2M PRN Opioid Reversal Nitroglycerin 0.4 mg 03/26/24 08:59 Nitroglycerin Sl Tabs 0.4 Mg Tab SUBLINGUAL Q5M PRN Chest Pain Non-Formulary Medication 20 mg 03/26/24 09:00 Omeprazole PO BID [facility] Non-Formulary Medication 1 packet 03/26/24 09:00 Patiromer Calcium Sorbitex [Veltassa] PO SUTUTHSA [facility] Sevelamer Carbonate 800 mg 03/26/24 09:00 Sevelamer 800 Mg Tab PO QID [facility] Sodium Bicarbonate 650 mg 03/26/24 09:00 Sodium Bicarbonate Tab 650 Mg Tab PO BID [facility] Tamsulosin HCl 0.4 mg 03/26/24 21:00 Tamsulosin 0.4 Mg Cap.Er.24h PO HS [facility] Intake and Output 03/25/24 03/26/24 03/26/24 22:59 06:59 14:59 Intake Total 55.667 Balance 55.667 Intake: Intake, IV Titration 55.667 Amount Diltiazem 125 mg In 55.667 Sodium Chloride 0.9% 100 ml @ 10 MG/HR 10 mls/hr IV .[id number] [facility] Rx#: [id number] Other: Weight 80.286 kg 03/25/24 19:47 03/25/24 19:47
[2024-03-26] MEDS ORDERED: GABAPENTIN 100 MG CAP PO SCH (16:00)
[2024-03-26] MEDS ORDERED: ONDANSETRON 4 MG/2 ML VIAL IVP PRN (17:48)
[2024-03-26] MEDS: ATORVASTATIN 10 MG TAB PO SCH (20:31)
[2024-03-26] MEDS: TAMSULOSIN 0.4 MG CAP.ER.24H PO SCH (20:32)
--- NOTE | 2024-03-26 20:42 | US ---
EXAMINATION TYPE: US venous doppler duplex LE LT DATE OF EXAM: 03/26/2024 8:25 PM COMPARISON: 02/27/24 CLINICAL INDICATION: Male, 68 years old with history of left leg pain, rule out DVT; Patient states l eft leg pain "for a long time". No swelling, no redness or warmth. patient is unsure if on thinners. No hx dvt , TECHNIQUE: The lower extremity deep venous system is examined utilizing real time linear array sonog volodymyr with graded compression, color doppler sonography, and spectral doppler. SIDE PERFORMED: Left FINDINGS: VESSELS IMAGED: Common Femoral Vein Deep Femoral Vein Greater Saphenous Vein * Femoral Vein Popliteal Vein Small Saphenous Vein * Proximal Calf Veins (* superficial vessels) Left Leg: Negative for DVT, Color Doppler imaging shows patency of the vessels. Spectral waveforms a re within normal limits. IMPRESSION: No ultrasound evidence for deep venous thrombosis. [facility], , 03/26/2024 8:40 PM
[2024-03-26] MEDS: SYMBICORT 160-4.5 MCG INHALER INHALATION SCH (20:51)
[2024-03-26] MEDS: methocarbamoL 500 MG TAB PO SCH (23:02)
[2024-03-27 06:56] LABS: HCT 33.8 % (39.0-53.0); HGB 10.8 gm/dL (13.0-17.5); Hypochromasia Slight; MCH 31.3 pg (25.0-35.0); MCHC 32.1 g/dL (31.0-37.0); MCV 97.5 fL (80.0-100.0); Mean Platelet Volume 7.5; Platelet Count 173 k/uL (150-450); RBC 3.47 m/uL (4.30-5.90); RDW 14.2 % (11.5-15.5); WBC 7.9 k/uL (3.8-10.6)
[2024-03-27 07:19] LABS: ALT 12 U/L (4-49); AST 11 U/L (17-59); African American GFR (CKD) 9 (>60 ml/min/1.73 sqM); Albumin 3.5 g/dL (3.5-5.0); Alkaline Phosphatase 96 U/L (38-126); Anion Gap 6 mmol/L; Blood Urea Nitrogen 41 mg/dL (9-20); Calcium 8.6 mg/dL (8.4-10.2); Carbon Dioxide 26 mmol/L (22-30); Chloride 106 mmol/L (98-107); Glucose 100 mg/dL (74-99); Magnesium 1.9 mg/dL (1.6-2.3); Non-African American GFR(CKD) 8 (>60 ml/min/1.73 sqM); Potassium 4.9 mmol/L (3.5-5.1); Sodium 138 mmol/L (137-145); Total Bilirubin 0.4 mg/dL (0.2-1.3); Total Protein 6.1 g/dL (6.3-8.2)
--- NOTE | 2024-03-27 10:31 | P.PN ---
Subjective Patient is seen in follow-up for end-stage renal disease. Tolerating dialysis well. On Cardizem drip. Cardioversion pending. Vital signs are stable. General: No acute distress. HEENT: Head exam is unremarkable. On nasal cannula. LUNGS: No audible rhonchi or wheezes. HEART: Rate and Rhythm are regular. ABDOMEN: Nontender. EXTREMITITES: No edema. Objective - Vital Signs Vital signs: Vital Signs Temp 98.2 F 03/27/24 08:16 Pulse 64 03/27/24 08:16 Resp 18 03/27/24 08:16 BP 127/66 03/27/24 08:16 Pulse Ox 96 03/27/24 08:49 FiO2 Intake & Output 03/26/24 03/27/24 03/27/24 18:59 06:59 18:59 Intake Total 125.000 218.25 Output Total 200 425 Balance -75.000 -206.75 Weight 80.286 kg 81.3 kg Intake: Intake, IV Titration 125.000 218.25 Amount Diltiazem 125 mg In 125.000 218.25 Sodium Chloride 0.9% 100 ml @ 15 MG/HR 15 mls/hr IV .[id number] [facility] Rx#: [id number] Output: Urine 200 425 Other: Voiding Method Urinal Urinal - Labs CBC & Chem 7: 03/27/24 06:29 03/27/24 06:29 Labs: Abnormal Lab Results - Last 24 Hours (Table) 03/27/24 03/27/24 Range/Units 06:29 06:29 RBC 3.47 L (4.30-5.90) m/uL Hgb 10.8 L (13.0-17.5) gm/dL Hct 33.8 L (39.0-53.0) % BUN 41 H (9-20) mg/dL Creatinine 6.70 H (0.66-1.25) mg/dL Glucose 100 H (74-99) mg/dL AST 11 L (17-59) U/L Total Protein 6.1 L (6.3-8.2) g/dL Assessment and Plan Plan: Assessment: 1. End-stage renal disease maintained on hemodialysis on Monday schedule. 2. A flutter maintained on Cardizem drip. Cardiology following. 3. Hypertension with chronic kidney disease. Stable. 4. Chronic kidney disease mineral bone disease maintained on Renvela. Plan: Currently seen while undergoing hemodialysis. Cardioversion with [facility] today.
[2024-03-27] MEDS: LORATADINE 10 MG TAB PO SCH (13:21)
[2024-03-27] MEDS: SENNOSIDES 8.6 MG TAB PO SCH (13:21)
[2024-03-27] MEDS: CYANOCOBALAMIN 500 MCG TAB PO SCH (13:22)
--- NOTE | 2024-03-27 13:38 | P.PN ---
Subjective Progress Note Date: 03/27/24 Hospital course: Patient is a pleasant 68-year-old male with a past medical history of CAD, paroxysmal atrial fibrillation on anticoagulation with Eliquis, hypertension, hyperlipidemia, ESRD on dialysis( Monday/Monday/Monday), BPH, severe neuropathy of bilateral lower extremities, and nicotine dependence. He presented to the emergency department on 03/25/2024 secondary to reports of nausea and tachycardia. Upon arrival to our facility, patient underwent evaluation in the emergency department. Vital signs upon arrival show blood p ressure 112/86, heart rate 135, respiratory rate 19, temp 98.2 F, and SpO2 of 94% on room air. EKG completed showing atrial flutter at 132 bpm. Chest x-ray negative for acute cardiopulmonary process. Labs completed and reviewed. CBC showing leukocytosis with WBC count of 10.8 and hemoglobin of 11.6. Coagulation normal findings. BMP showing hyponatremia with sodium of 136 and mild hyperkalemia with potassium of 5.2, bicarb elevated at 31 and renal function consistent with known ESRD with BUN of 28, creatinine of 4.00, GFR of 15. Blood glucose 114. Lactic acid normal findings at 1.5. Liver profile unremarkable. Troponin was 0.028. Patient was started on Cardizem infusion and admitted under our services with consultation to cardiology and nephrology. He is scheduled to undergo TONEY with cardioversion later today. Physical exam: Patient seen and fully evaluated at bedside this morning. He was undergoing dialysis and is scheduled to undergo TONEY with cardioversion later today. Patient currently denies having any headache, lightheadedness, dizziness, chest pain, palpitations, shortness of breath, or any other complaints at this time. Vital signs reviewed and stable. General: Nontoxic, no distress and appears stated age. Derm: Skin warm and dry, normal coloration for ethnicity. Head: Atraumatic, normocephalic and symmetric. Eyes: EOM's intact, no lid lag, and anicteric sclera Mouth: no lip lesions, mucus membranes moist Cardiovascular: Irregularly irregular, no obvious murmur noted, positive posterior tibial pulses bilaterally, and cap refill < 2 seconds. Lungs: Respirations even, regular, and unlabored on room air. Lungs CTA bilaterally, no rhonchi, no rales, no wheezing, and no accessory muscle usage. Abdominal: soft, nontender to palpation, no guarding, no appreciable organomegaly Ext: ROM intact. No gross muscle atrophy, no edema, no contractures Neuro: Speech clear, face symmetrical and CN II-XII grossly intact with no noted focal neuro deficits Psych: Alert and oriented to person, place, time, and situation. Appropriate and pleasant affect. Assessment and Plan of Care: Atrial flutter with RVR -Cardiology following, planning to take patient for TONEY with cardioversion later today. -Continue Cardizem infusion at 15 mg/h -Hold amiodarone while patient is on Cardizem infusion. -Continue metoprolol 25 mg twice daily and Eliquis 5 mg twice daily. -Patient to remain on continuous telemetry monitoring. ESRD on hemodialysis Hyperkalemia -Nephrology consulted for management of hemodialysis. -Patient to remain on continuous telemetry monitoring. -Continue Renvela 2400 mg 3 times daily with meals and 800 mg at bedtime. CAD Hypertension Hyperlipidemia -Patient to continue daily medication regimen with Eliquis 5 mg twice daily, atorvastatin 10 mg nightly, and metoprolol 25 mg twice daily. Severe peripheral neuropathy -Continue gabapentin 200 mg 3 times daily. BPH -Continue Flomax 0.4 mg nightly. Data and imaging reviewed: Morning labs completed and reviewed. CBC showing stable normocytic anemia with hemoglobin of 10.8. BMP consistent with ESRD with BUN of 41, creatinine of 6.70, and creatinine of 8. Patient undergoing dialysis this morning. Blood glucose 100. Liver profile unremarkable. Vital signs reviewed. Blood pressure 127/66, heart rate 64, respiratory rate 18, temp 98.2 F, and SpO2 of 95% on 3 L. Venous Doppler left lower extremity negative for DVT. CODE STATUS: Full code DVT prophylaxis: Eliquis Anticipated discharge date: Pending clinical course Anticipated discharge place: Home Patient was seen independently by Nurse Practitioner. This document was prepared using [employer] dictation software. Please allow for errors in care manager while rare they do occur. Harpal Kaufman NP rendered care for this patient independently, reviewed the findings and plan as documented in the note above and agree with plan. I did not physically speak with or examine the patient on this date. Objective - Vital Signs Vital signs: Vital Signs Temp 98.6 F 03/26/24 19:50 Pulse 62 03/27/24 03:25 Resp 18 03/27/24 03:25 BP 114/68 03/27/24 03:25 Pulse Ox 93 L 03/27/24 03:25 FiO2 Intake & Output 03/26/24 03/27/24 03/27/24 18:59 06:59 18:59 Intake Total 125.000 218.25 Output Total 200 425 Balance -75.000 -206.75 Weight 80.286 kg 81.3 kg Intake: Intake, IV Titration 125.000 218.25 Amount Diltiazem 125 mg In 125.000 218.25 Sodium Chloride 0.9% 100 ml @ 15 MG/HR 15 mls/hr IV .Q8H20M [facility] Rx#: [id number] Output: Urine 200 425 Other: Voiding Method Urinal Urinal - Labs CBC & Chem 7: 03/27/24 06:29 03/27/24 06:29 Labs: Abnormal Lab Results - Last 24 Hours (Table) 03/27/24 03/27/24 Range/Units 06:29 06:29 RBC 3.47 L (4.30-5.90) m/uL Hgb 10.8 L (13.0-17.5) gm/dL Hct 33.8 L (39.0-53.0) % BUN 41 H (9-20) mg/dL Creatinine 6.70 H (0.66-1.25) mg/dL Glucose 100 H (74-99) mg/dL AST 11 L (17-59) U/L Total Protein 6.1 L (6.3-8.2) g/dL
--- NOTE | 2024-03-27 15:08 | P.PN ---
Subjective Progress Note Date: 03/27/24 Reason for Consult (text): Atrial flutter with RVR History of present illness: This is a 68-year-old male patient of Dr. Paulo Blandon with past medical history of end-stage renal disease on hemodialysis Monday, atrial flutter, hypertension, dyslipidemia. We have been asked to evaluate the patient for atrial flutter with RVR. Patient states he does not know why he is here he said they just brought me in here. Patient apparently resides at [facility] and was having some GI upset with nausea and vomiting and then was complaining of some dizziness and heart rate was found to be 130 and he was brought in to the emergency center for evaluation. Patient has been in atrial flutter fluctuating between about 90-130. Discussed cardioversion with the patient and he is agreeable to move forward. He denies having any chest pain, no palpitations, no lightheadedness or dizziness. Blood pressure 115/69, heart rate 68, pulse ox 95% on room air. Patient has been started on Cardizem drip which was increased to 10 mg/h. Patient has been resumed on Eliquis. -EKG: Atrial flutter at 132 bpm -Chest x-ray: No acute process -Laboratory studies: WBC 10.8, hemoglobin 11.6. Sodium 136, potassium 5.2, BUN 28 creatinine 4. Troponin negative x 1. -Home cardiac medications: Amiodarone 100 mg daily, Eliquis 5 mg twice daily, atorvastatin 10 mg at bedtime, Lopressor 25 mg twice daily, Nitrostat as needed. -Echocardiogram performed 07/25/2023 reveals EF 60 to 65%, mild mitral regurgitation, mild aortic regurgitation. -Lexiscan Cardiolite stress test performed 07/25/2023: Manage defect involving the apical lateral myocardium with no definite reversible area of ischemia. 03/27/2024 Patient seen and examined. Due to scheduling difficulties, TONEY and cardioversion was to be delayed until this morning but again delayed because patient was getting dialysis. Patient's heart rate is now running in the 60s but he remains in atrial fibrillation. Heart rate will jump up to the 120s with minimal activity. Patient remains on Cardizem drip at 15 mg/h. Blood pressure 104/75, heart rate 68, pulse ox 96% on 3 L nasal cannula. Repeat blood work reveals hemoglobin 10.8, BUN 41 creatinine 6.7. Updated patient and sister at the bedside. Physical examination: Gen: This is a 68-year-old male in no acute distress VS: reviewed HEENT: Head is atraumatic, normocephalic. Pupils equal, round. Sclerae is anicteric. NECK: Supple. No JVD. LUNGS: Clear to auscultation. No wheezes or rhonchi. No intercostal retractions. HEART: Regular rate and rhythm. No murmur. ABDOMEN: Soft No tenderness. EXTREMITIES: No pedal edema. No calf tenderness. NEUROLOGICAL: Patient is awake, alert and oriented x3. Assessment: Typical atrial flutter with RVR End-stage renal disease on hemodialysis Monday Hypertension Dyslipidemia Plan: Continue patient's home cardiac medications Start patient on Cardizem oral 60 mg every 8 hour and discontinue Cardizem drip Continue Lopressor 25 mg twice daily Continue telemetry monitoring N.p.o. after midnight Patient scheduled for TONEY and cardioversion tomorrow, Further recommendations to follow based upon clinical course Nurse practitioner note has been reviewed, I agree with documented findings and plan of care. Patient was seen and examined. Objective - Vital Signs Vital signs: Vital Signs Temp 98.2 F 03/27/24 08:16 Pulse 68 03/27/24 11:26 Resp 18 03/27/24 11:26 BP 104/75 03/27/24 11:26 Pulse Ox 96 03/27/24 11:26 FiO2 Intake & Output 03/26/24 03/27/24 03/27/24 18:59 06:59 18:59 Intake Total 125.000 218.25 Output Total 200 425 Balance -75.000 -206.75 Weight 80.286 kg 81.3 kg Intake: Intake, IV Titration 125.000 218.25 Amount Diltiazem 125 mg In 125.000 218.25 Sodium Chloride 0.9% 100 ml @ 15 MG/HR 15 mls/hr IV .Q8H20M [facility] Rx#: [id number] Output: Urine 200 425 Other: Voiding Method Urinal Urinal Urinal - Labs CBC & Chem 7: 03/27/24 06:29 03/27/24 06:29 Labs: Abnormal Lab Results - Last 24 Hours (Table) 03/27/24 03/27/24 Range/Units 06:29 06:29 RBC 3.47 L (4.30-5.90) m/uL Hgb 10.8 L (13.0-17.5) gm/dL Hct 33.8 L (39.0-53.0) % BUN 41 H (9-20) mg/dL Creatinine 6.70 H (0.66-1.25) mg/dL Glucose 100 H (74-99) mg/dL AST 11 L (17-59) U/L Total Protein 6.1 L (6.3-8.2) g/dL
[2024-03-27] MEDS: DILTIAZEM ORAL 60 MG TAB PO SCH (15:39)
[2024-03-27] MEDS: AMIODARONE 100 MG TAB PO SCH (15:39)
[2024-03-28 07:40] LABS: HCT 36.7 % (39.0-53.0); HGB 11.8 gm/dL (13.0-17.5); MCH 30.3 pg (25.0-35.0); MCHC 32.1 g/dL (31.0-37.0); MCV 94.4 fL (80.0-100.0); Mean Platelet Volume 8.1; Platelet Count 182 k/uL (150-450); RBC 3.89 m/uL (4.30-5.90); RDW 14.3 % (11.5-15.5); WBC 9.9 k/uL (3.8-10.6)
[2024-03-28 07:51] LABS: ALT 16 U/L (4-49); AST 14 U/L (17-59); African American GFR (CKD) 12 (>60 ml/min/1.73 sqM); Albumin 3.8 g/dL (3.5-5.0); Alkaline Phosphatase 107 U/L (38-126); Anion Gap 7 mmol/L; Blood Urea Nitrogen 30 mg/dL (9-20); Calcium 8.9 mg/dL (8.4-10.2); Carbon Dioxide 31 mmol/L (22-30); Chloride 101 mmol/L (98-107); Glucose 106 mg/dL (74-99); Non-African American GFR(CKD) 10 (>60 ml/min/1.73 sqM); Potassium 4.6 mmol/L (3.5-5.1); Sodium 139 mmol/L (137-145); Total Bilirubin 0.5 mg/dL (0.2-1.3); Total Protein 6.6 g/dL (6.3-8.2)
[2024-03-28] MEDS: ACETAMINOPHEN TAB 500 MG TAB PO PRN (10:56)
--- NOTE | 2024-03-28 11:22 | P.PN ---
Subjective Patient is seen in follow-up for end-stage renal disease. Tolerating dialysis well. On oral Cardizem and amiodarone. Cardioversion pending. Vital signs are stable. General: No acute distress. HEENT: Head exam is unremarkable. On nasal cannula. LUNGS: No audible rhonchi or wheezes. HEART: Rate and Rhythm are regular. ABDOMEN: Nontender. EXTREMITITES: No edema. Objective - Vital Signs Vital signs: Vital Signs Temp 98.6 F 03/28/24 10:42 Pulse 83 03/28/24 10:47 Resp 20 03/28/24 10:42 BP 113/64 03/28/24 10:42 Pulse Ox 95 03/28/24 10:42 FiO2 Intake & Output 03/27/24 03/28/24 03/28/24 18:59 06:59 18:59 Intake Total 510 Output Total 3800 300 450 Balance -3290 -300 -450 Weight 72 kg Intake: IV 10 Invasive Line 2 10 Hemodialysis 500 Output: Urine 300 300 450 Hemodialysis 2000 Hemodialysis Net Amount 1500 Other: Voiding Method Urinal Urinal Urinal - Labs CBC & Chem 7: 03/28/24 07:18 03/28/24 07:18 Labs: Abnormal Lab Results - Last 24 Hours (Table) 03/28/24 03/28/24 Range/Units 07:18 07:18 RBC 3.89 L (4.30-5.90) m/uL Hgb 11.8 L (13.0-17.5) gm/dL Hct 36.7 L (39.0-53.0) % Carbon Dioxide 31 H (22-30) mmol/L BUN 30 H (9-20) mg/dL Creatinine 5.29 H (0.66-1.25) mg/dL Glucose 106 H (74-99) mg/dL AST 14 L (17-59) U/L Assessment and Plan Plan: Assessment: 1. End-stage renal disease maintained on hemodialysis on Monday schedule. 2. A flutter maintained on Cardizem and amiodarone. Cardiology following. 3. Hypertension with chronic kidney disease. Stable. 4. Chronic kidney disease mineral bone disease maintained on Renvela. Plan: Hemodialysis tomorrow. Cardioversion with TONEY today.
--- NOTE | 2024-03-28 11:45 | P.PN ---
Subjective Progress Note Date: 03/28/24 Hospital course: Patient is a pleasant 68-year-old male with a past medical history of CAD, paroxysmal atrial fibrillation on anticoagulation with Eliquis, hypertension, hyperlipidemia, ESRD on dialysis( Monday/Monday/Monday), BPH, severe neuropathy of bilateral lower extremities, and nicotine dependence. He presented to the emergency department on 03/25/2024 secondary to reports of nausea and tachycardia. Upon arrival to our facility, patient underwent evaluation in the emergency department. Vital signs upon arrival show blood p ressure 112/86, heart rate 135, respiratory rate 19, temp 98.2 F, and SpO2 of 94% on room air. EKG completed showing atrial flutter at 132 bpm. Chest x-ray negative for acute cardiopulmonary process. Labs completed and reviewed. CBC showing leukocytosis with WBC count of 10.8 and hemoglobin of 11.6. Coagulation normal findings. BMP showing hyponatremia with sodium of 136 and mild hyperkalemia with potassium of 5.2, bicarb elevated at 31 and renal function consistent with known ESRD with BUN of 28, creatinine of 4.00, GFR of 15. Blood glucose 114. Lactic acid normal findings at 1.5. Liver profile unremarkable. Troponin was 0.028. Patient was started on Cardizem infusion and admitted under our services with consultation to cardiology and nephrology. Venous Doppler left lower extremity negative for DVT. He is currently awaiting to be taken down for TONEY with cardioversion later today versus tomorrow. Physical exam: Patient seen and fully evaluated at bedside this morning. RN also at bedside states that patient did not go down for TONEY with cardioversion yesterday because he was still undergoing dialysis at that time. RN reports tipple mechanic stated he will attempt to take patient down for TONEY with cardioversion later today versus tomorrow. Patient currently resting comfortably and denies having any complaints, questions, or needs at this time. Vital signs reviewed and stable. General: Nontoxic, no distress and appears stated age. Derm: Skin warm and dry, normal coloration for ethnicity. Head: Atraumatic, normocephalic and symmetric. Eyes: EOM's intact, no lid lag, and anicteric sclera Mouth: no lip lesions, mucus membranes moist Cardiovascular: Irregularly irregular, no obvious murmur noted, positive posterior tibial pulses bilaterally, and cap refill < 2 seconds. Lungs: Respirations even, regular, and unlabored on room air. Lungs CTA bilaterally, no rhonchi, no rales, no wheezing, and no accessory muscle usage. Abdominal: soft, nontender to palpation, no guarding, no appreciable organomegaly Ext: ROM intact. No gross muscle atrophy, no edema, no contractures Neuro: Speech clear, face symmetrical and CN II-XII grossly intact with no noted focal neuro deficits Psych: Alert and oriented to person, place, time, and situation. Appropriate and pleasant affect. Assessment and Plan of Care: Atrial flutter with RVR -Remains in atrial flutter with a controlled ventricular rate at rest, increasing to RVR with any exertion. -Cardiology following, states possibly taking patient down for TONEY with cardioversion later today or tomorrow. -Patient was started on oral Cardizem 60 mg 3 times daily and amiodarone was resumed at 100 mg daily. -Continue metoprolol 25 mg twice daily and Eliquis 5 mg twice daily. -Patient to remain on continuous telemetry monitoring. ESRD on hemodialysis Hyperkalemia -Nephrology following and managing hemodialysis. -Patient to remain on continuous telemetry monitoring. -Continue Renvela 2400 mg 3 times daily with meals and 800 mg at bedtime. CAD Hypertension Hyperlipidemia -Patient to continue daily medication regimen with Eliquis 5 mg twice daily, atorvastatin 10 mg nightly, and metoprolol 25 mg twice daily. Severe peripheral neuropathy -Continue gabapentin 200 mg 3 times daily. BPH -Continue Flomax 0.4 mg nightly. Data and imaging reviewed: Morning labs completed and reviewed. CBC showing stable normocytic anemia with hemoglobin of 11.8. BMP showing hypercarbia with bicarb of 31 and consistent with ESRD with BUN of 30, creatinine 5.29, and GFR of 10. Blood glucose 106. Magnesium 2.0. Liver profile unremarkable. Vital signs reviewed. Blood pressure 113/64, heart rate 45, respiratory rate 20, temp 98.6 F, and SpO2 of 95% on 3 L CODE STATUS: Full code DVT prophylaxis: Eliquis Anticipated discharge date: Pending clinical course Anticipated discharge place: Home Patient was seen independently by Nurse Practitioner. This document was prepared using [employer] dictation software. Please allow for errors in filter press pumper while rare they do occur. Harpal Kaufman NP rendered care for this patient independently, reviewed the findings and plan as documented in the note above and agree with plan. I did not physically speak with or examine the patient on this date. . Objective - Vital Signs Vital signs: Vital Signs Temp 98.5 F 03/28/24 06:55 Pulse 91 03/28/24 07:41 Resp 20 03/28/24 06:55 BP 139/72 03/28/24 06:55 Pulse Ox 96 03/28/24 06:55 FiO2 Intake & Output 03/27/24 03/28/24 03/28/24 18:59 06:59 18:59 Intake Total 510 Output Total 3800 300 450 Balance -3290 -300 -450 Weight 72 kg Intake: IV 10 Invasive Line 2 10 Hemodialysis 500 Output: Urine 300 300 450 Hemodialysis 2000 Hemodialysis Net Amount 1500 Other: Voiding Method Urinal Urinal - Labs CBC & Chem 7: 03/28/24 07:18 03/28/24 07:18 Labs: Abnormal Lab Results - Last 24 Hours (Table) 03/28/24 03/28/24 Range/Units 07:18 07:18 RBC 3.89 L (4.30-5.90) m/uL Hgb 11.8 L (13.0-17.5) gm/dL Hct 36.7 L (39.0-53.0) % Carbon Dioxide 31 H (22-30) mmol/L BUN 30 H (9-20) mg/dL Creatinine 5.29 H (0.66-1.25) mg/dL Glucose 106 H (74-99) mg/dL AST 14 L (17-59) U/L
--- NOTE | 2024-03-28 14:08 | P.PN ---
Subjective Progress Note Date: 03/28/24 Reason for Consult (text): Atrial flutter with RVR History of present illness: This is a 68-year-old male patient of Dr. Paulo Blandon with past medical history of end-stage renal disease on hemodialysis Monday, atrial flutter, hypertension, dyslipidemia. We have been asked to evaluate the patient for atrial flutter with RVR. Patient states he does not know why he is here he said they just brought me in here. Patient apparently resides at [facility] and was having some GI upset with nausea and vomiting and then was complaining of some dizziness and heart rate was found to be 130 and he was brought in to the emergency center for evaluation. Patient has been in atrial flutter fluctuating between about 90-130. Discussed cardioversion with the patient and he is agreeable to move forward. He denies having any chest pain, no palpitations, no lightheadedness or dizziness. Blood pressure 115/69, heart rate 68, pulse ox 95% on room air. Patient has been started on Cardizem drip which was increased to 10 mg/h. Patient has been resumed on Eliquis. -EKG: Atrial flutter at 132 bpm -Chest x-ray: No acute process -Laboratory studies: WBC 10.8, hemoglobin 11.6. Sodium 136, potassium 5.2, BUN 28 creatinine 4. Troponin negative x 1. -Home cardiac medications: Amiodarone 100 mg daily, Eliquis 5 mg twice daily, atorvastatin 10 mg at bedtime, Lopressor 25 mg twice daily, Nitrostat as needed. -Echocardiogram performed 07/25/2023 reveals EF 60 to 65%, mild mitral regurgitation, mild aortic regurgitation. -Lexiscan Cardiolite stress test performed 07/25/2023: Manage defect involving the apical lateral myocardium with no definite reversible area of ischemia. 03/27/2024 Patient seen and examined. Due to scheduling difficulties, TONEY and cardioversion was to be delayed until this morning but again delayed because patient was getting dialysis. Patient's heart rate is now running in the 60s but he remains in atrial fibrillation. Heart rate will jump up to the 120s with minimal activity. Patient remains on Cardizem drip at 15 mg/h. Blood pressure 104/75, heart rate 68, pulse ox 96% on 3 L nasal cannula. Repeat blood work reveals hemoglobin 10.8, BUN 41 creatinine 6.7. Updated patient and sister at the bedside. 03/28/24 Patient remains in atrial flutter usually rate controlled except with activity goes up to 130s. Blood pressure 110/68, pulse ox 96% on 3 L. Repeat blood work reveals hemoglobin 11.8. Yesterday, Cardizem drip was discontinued and he was started on oral 60 mg every 8 hours and continued on beta-parvez, 25 mg twice daily. Physical examination: Gen: This is a 68-year-old male in no acute distress VS: reviewed HEENT: Head is atraumatic, normocephalic. Pupils equal, round. Sclerae is anicteric. NECK: Supple. No JVD. LUNGS: Clear to auscultation. No wheezes or rhonchi. No intercostal retractions. HEART: Regular rate and rhythm. No murmur. ABDOMEN: Soft No tenderness. EXTREMITIES: No pedal edema. No calf tenderness. NEUROLOGICAL: Patient is awake, alert and oriented x3. Assessment: Typical atrial flutter with RVR End-stage renal disease on hemodialysis Monday Hypertension Dyslipidemia Plan: Continue amiodarone 100 mg daily, Eliquis 5 mg twice daily, atorvastatin 10 mg at bedtime Cardizem oral 60 mg every 8 hour Continue Lopressor increased to 50 mg twice daily Continue telemetry monitoring N.p.o. after midnight Possible TONEY and cardioversion tomorrow on Monday Further recommendations to follow based upon clinical course Nurse practitioner note has been reviewed, I agree with documented findings and plan of care. Patient was seen and examined. Objective - Vital Signs Vital signs: Vital Signs Temp 98.6 F 03/28/24 10:42 Pulse 69 03/28/24 13:15 Resp 20 03/28/24 11:05 BP 110/68 03/28/24 11:05 Pulse Ox 96 03/28/24 11:05 FiO2 Intake & Output 03/27/24 03/28/24 03/28/24 18:59 06:59 18:59 Intake Total 510 Output Total 3800 300 450 Balance -3290 -300 -450 Weight 72 kg Intake: IV 10 Invasive Line 2 10 Hemodialysis 500 Output: Urine 300 300 450 Hemodialysis 2000 Hemodialysis Net Amount 1500 Other: Voiding Method Urinal Urinal Urinal - Labs CBC & Chem 7: 11/21/24 07:18 03/28/24 07:18 Labs: Abnormal Lab Results - Last 24 Hours (Table) 03/28/24 03/28/24 Range/Units 07:18 07:18 RBC 3.89 L (4.30-5.90) m/uL Hgb 11.8 L (13.0-17.5) gm/dL Hct 36.7 L (39.0-53.0) % Carbon Dioxide 31 H (22-30) mmol/L BUN 30 H (9-20) mg/dL Creatinine 5.29 H (0.66-1.25) mg/dL Glucose 106 H (74-99) mg/dL AST 14 L (17-59) U/L
[2024-03-28] MEDS: METOPROLOL TARTRATE 25 MG TAB PO STA (14:26)
[2024-03-28] MEDS: DILTIAZEM ORAL 60 MG TAB PO SCH (15:47)
[2024-03-28] MEDS: METOPROLOL TARTRATE 50 MG TAB PO SCH (18:41)
[2024-03-28] MEDS: AMIODARONE 100 MG TAB PO STA (19:56)
[2024-03-28] MEDS: DILTIAZEM ORAL 30 MG TAB PO SCH (19:56)
[2024-03-29] MEDS ORDERED: BENZOCAINE SPRAY 1 CAN TOPICAL PRN (07:29)
[2024-03-29] MEDS ORDERED: MIDAZOLAM 2 MG/2 ML VIAL IV PRN (07:29)
[2024-03-29] MEDS ORDERED: fentaNYL (PF) 50 MCG/ML 5 ML AMP IVP PRN (07:29)
[2024-03-29] MEDS: AMIODARONE 200 MG TAB PO SCH (08:19)
[2024-03-29 08:41] LABS: HCT 36.5 % (39.0-53.0); HGB 11.9 gm/dL (13.0-17.5); MCH 30.9 pg (25.0-35.0); MCHC 32.5 g/dL (31.0-37.0); Platelet Count 196 k/uL (150-450); RBC 3.84 m/uL (4.30-5.90); RDW 14.3 % (11.5-15.5); WBC 8.8 k/uL (3.8-10.6)
[2024-03-29 09:01] LABS: ALT 17 U/L (4-49); AST 12 U/L (17-59); African American GFR (CKD) 8 (>60 ml/min/1.73 sqM); Albumin 3.9 g/dL (3.5-5.0); Alkaline Phosphatase 107 U/L (38-126); Anion Gap 6 mmol/L; Blood Urea Nitrogen 47 mg/dL (9-20); Calcium 9.2 mg/dL (8.4-10.2); Carbon Dioxide 31 mmol/L (22-30); Chloride 103 mmol/L (98-107); Glucose 98 mg/dL (74-99); Magnesium 2.2 mg/dL (1.6-2.3); Non-African American GFR(CKD) 7 (>60 ml/min/1.73 sqM); Potassium 5.4 mmol/L (3.5-5.1); Sodium 140 mmol/L (137-145); Total Bilirubin 0.5 mg/dL (0.2-1.3); Total Protein 6.6 g/dL (6.3-8.2)
--- NOTE | 2024-03-29 10:56 | P.PN ---
Subjective Patient is seen in follow-up for end-stage renal disease. Scheduled for dialysis today. On oral Cardizem and amiodarone. Cardioversion pending. Vital signs are stable. General: No acute distress. HEENT: Head exam is unremarkable. On nasal cannula. LUNGS: No audible rhonchi or wheezes. HEART: Rate and Rhythm are regular. ABDOMEN: Nontender. EXTREMITITES: No edema. Objective - Vital Signs Vital signs: Vital Signs Temp 98.2 F 03/29/24 08:00 Pulse 64 03/29/24 08:00 Resp 18 03/29/24 08:00 BP 107/54 03/29/24 08:00 Pulse Ox 97 03/29/24 08:00 FiO2 Intake & Output 03/28/24 03/29/24 03/29/24 18:59 06:59 18:59 Intake Total 236 Output Total 625 400 Balance -389 -400 Weight 77.3 kg Intake: Oral 236 Output: Urine 625 400 Other: Voiding Method Urinal Urinal Urinal - Labs CBC & Chem 7: 03/29/24 07:52 03/29/24 07:52 Labs: Abnormal Lab Results - Last 24 Hours (Table) 03/29/24 03/29/24 Range/Units 07:52 07:52 RBC 3.84 L (4.30-5.90) m/uL Hgb 11.9 L (13.0-17.5) gm/dL Hct 36.5 L (39.0-53.0) % Potassium 5.4 H (3.5-5.1) mmol/L Carbon Dioxide 31 H (22-30) mmol/L BUN 47 H (9-20) mg/dL Creatinine 7.16 H* (0.66-1.25) mg/dL AST 12 L (17-59) U/L Assessment and Plan Plan: Assessment: 1. End-stage renal disease maintained on hemodialysis on Monday schedule. 2. A flutter maintained on Cardizem and amiodarone. Cardiology following. 3. Hypertension with chronic kidney disease. Stable. 4. Chronic kidney disease mineral bone disease maintained on Renvela. Plan: Hemodialysis today. Cardioversion and TONEY pending.
[2024-03-29] MEDS ORDERED: LIDOCAINE 1% INJ 10MG/ML (20 ML MDV) ONE (13:00)
[2024-03-29] MEDS ORDERED: EPINEPHrine 10 ML SYRINGE (0.1 MG/ML) ONE (13:00)
[2024-03-29] MEDS ORDERED: PROPOFOL 10 MG/ML 20 ML VIAL IV ONE (13:00)
[2024-03-29] MEDS ORDERED: PHENYLEPHRINE 10 MG/ML VIAL ONE (13:00)
[2024-03-29] MEDS ORDERED: ATROPINE SULFATE 0.1 MG/ML 10ML SYRINGE ONE (13:00)
[2024-03-29] MEDS ORDERED: ePHEDrine 50 MG/ML 1 ML VIAL ONE (13:00)
[2024-03-29] MEDS: IV FLUID CONTINUATION 1,000 ML IV ONE (13:36)
[2024-03-29] MEDS: ePHEDrine 50 MG/ML 1 ML VIAL IVP STA (13:59)
--- NOTE | 2024-03-29 18:16 | P.PN ---
Subjective Progress Note Date: 03/29/24 Hospital course: Patient is a pleasant 68-year-old male with a past medical history of CAD, paroxysmal atrial fibrillation on anticoagulation with Eliquis, hypertension, hyperlipidemia, ESRD on dialysis( Monday/Monday/Monday), BPH, severe neuropathy of bilateral lower extremities, and nicotine dependence. He presented to the emergency department on 03/25/2024 secondary to reports of nausea and tachycardia. Upon arrival to our facility, patient underwent evaluation in the emergency department. Vital signs upon arrival show blood p ressure 112/86, heart rate 135, respiratory rate 19, temp 98.2 F, and SpO2 of 94% on room air. EKG completed showing atrial flutter at 132 bpm. Chest x-ray negative for acute cardiopulmonary process. Labs completed and reviewed. CBC showing leukocytosis with WBC count of 10.8 and hemoglobin of 11.6. Coagulation normal findings. BMP showing hyponatremia with sodium of 136 and mild hyperkalemia with potassium of 5.2, bicarb elevated at 31 and renal function consistent with known ESRD with BUN of 28, creatinine of 4.00, GFR of 15. Blood glucose 114. Lactic acid normal findings at 1.5. Liver profile unremarkable. Troponin was 0.028. Patient was started on Cardizem infusion and admitted under our services with consultation to cardiology and nephrology. Venous Doppler left lower extremity negative for DVT. He is currently awaiting to be taken down for TONEY with cardioversion later today. Physical exam: Patient seen and fully evaluated at bedside this morning. Patient reports feeling sleepy this morning otherwise denies any complaints. He continues to have episodes of atrial flutter RVR with any exertion. But denies having any complaints at rest. Vital signs reviewed and stable. General: Nontoxic, no distress and appears stated age. Derm: Skin warm and dry, normal coloration for ethnicity. Head: Atraumatic, normocephalic and symmetric. Eyes: EOM's intact, no lid lag, and anicteric sclera Mouth: no lip lesions, mucus membranes moist Cardiovascular: Irregularly irregular, no obvious murmur noted, positive posterior tibial pulses bilaterally, and cap refill < 2 seconds. Lungs: Respirations even, regular, and unlabored on r 2 L O2 via nasal cannula. Lungs CTA bilaterally, no rhonchi, no rales, no wheezing, and no accessory muscle usage. Abdominal: soft, nontender to palpation, no guarding, no appreciable organomegaly Ext: ROM intact. No gross muscle atrophy, no edema, no contractures Neuro: Speech clear, face symmetrical and CN II-XII grossly intact with no noted focal neuro deficits Psych: Alert and oriented to person, place, time, and situation. Appropriate and pleasant affect. Assessment and Plan of Care: Atrial flutter with RVR -Remains in atrial flutter with a controlled ventricular rate at rest, increasing to RVR with any exertion. -Cardiology following, taking patient down for TONEY with cardioversion later today. -Continue oral Cardizem 60 mg 3 times daily, amiodarone 100 mg daily, metoprolol 25 mg twice daily and Eliquis 5 mg twice daily. -Patient to remain on continuous telemetry monitoring. ESRD on hemodialysis Hyperkalemia -Nephrology following and managing hemodialysis. Patient to undergo dialysis today. -Patient to remain on continuous telemetry monitoring. -Continue Renvela 2400 mg 3 times daily with meals and 800 mg at bedtime. CAD Hypertension Hyperlipidemia -Patient to continue daily medication regimen with Eliquis 5 mg twice daily, atorvastatin 10 mg nightly, and metoprolol 25 mg twice daily. Severe peripheral neuropathy -Continue gabapentin 200 mg 3 times daily. BPH -Continue Flomax 0.4 mg nightly. Data and imaging reviewed: Morning labs completed and reviewed. CBC showing stable normocytic anemia with hemoglobin of 11.9. BMP showing hyperkalemia with potassium of 5.4, hypercarbia with bicarb of 31, and elevated BUN of 47, creatinine of 7.16, GFR of 7. Blood glucose 98. Magnesium 2.2. Vital signs reviewed. Blood pressure 107/54, heart rate 64, respiratory rate 18, temp 98.2 F, and SpO2 of 97% on 2 L O2 via nasal cannula CODE STATUS: Full code DVT prophylaxis: Eliquis Anticipated discharge date: Pending clinical course Anticipated discharge place: Home Patient was seen independently by Nurse Practitioner. This document was prepared using [employer] dictation software. Please allow for errors in master in chancery while rare they do occur. Harpal Kaufman NP rendered care for this patient independently, reviewed the findings and plan as documented in the note above and agree with plan. I did not physically speak with or examine the patient on this date. . Objective - Vital Signs Vital signs: Vital Signs Temp 98.4 F 03/29/24 06:46 Pulse 75 03/29/24 06:46 Resp 16 03/29/24 06:46 BP 107/58 03/29/24 06:46 Pulse Ox 97 03/29/24 06:46 FiO2 Intake & Output 03/28/24 03/29/24 03/29/24 18:59 06:59 18:59 Intake Total 236 Output Total 625 Balance -389 Weight 77.3 kg Intake: Oral 236 Output: Urine 625 Other: Voiding Method Urinal Urinal - Labs CBC & Chem 7: 03/29/24 07:52 03/29/24 07:52 Labs: Abnormal Lab Results - Last 24 Hours (Table) 03/28/24 03/28/24 Range/Units 07:18 07:18 RBC 3.89 L (4.30-5.90) m/uL Hgb 11.8 L (13.0-17.5) gm/dL Hct 36.7 L (39.0-53.0) % Carbon Dioxide 31 H (22-30) mmol/L BUN 30 H (9-20) mg/dL Creatinine 5.29 H (0.66-1.25) mg/dL Glucose 106 H (74-99) mg/dL AST 14 L (17-59) U/L
[2024-03-29] MEDS: METOPROLOL TARTRATE 25 MG TAB PO SCH (19:40)
--- NOTE | 2024-03-29 20:45 | P.TEE ---
Description of Procedure(s): Procedure performed: Transesophageal Echocardiogram with color flow doppler, pulsed wave doppler and continuous wave doppler, synchronized cardioversion Moderate conscious sedation: Moderate conscious sedation was supplied by anesthesia, see separate report. Complications: none Indications: Aflutter with RVR PROCEDURE: After the risks, benefits and alternatives of the above mentioned procedure was explained in detail with the patient, informed consent was obtained. Patient was brought to the lab in a fasting state. Patient was given sedation by anesthesia, see separate report. The throat was sprayed with Hurricane to anesthetize the throat. A lubricated Omni probe was then introduced into the esophagus and stomach and multiple views were obtained. 2D echo with color flow doppler, pulsed wave doppler and continuous wave doppler was utilized. Agitated saline bubbles were injected to assess for any intra-atrial shunt. The probe was then removed. There was no thrombus noted and therefore patient underwent synchronized cardioversion x 1 with 200J with resultant sinus rhythm. Patient had significant sinus pause and bradycardia with HR in the 20-30's and therefore required external pacing, atropine and Epinephrine. Patient's HR did increase with weaning of sedation. Patient was transferred to the post procedure area in stable and satisfactory condition. FINDINGS: 1. The aortic valve is tricuspid and function normally with trace aortic regurgitation. 2. The mitral valve appears be normal with mild regurgitation. 3. Tricuspid valve appears to be normal. 4. There is a PFO with positive bubble study. 5. Left atrial appendage is free of clot. 6. Left ventricular EF 50-55%
[2024-03-30 07:21] LABS: HCT 31.5 % (39.0-53.0); HGB 10.4 gm/dL (13.0-17.5); MCH 31.2 pg (25.0-35.0); MCHC 32.9 g/dL (31.0-37.0); Mean Platelet Volume 7.5; Platelet Count 181 k/uL (150-450); RBC 3.32 m/uL (4.30-5.90); RDW 13.9 % (11.5-15.5); WBC 8.5 k/uL (3.8-10.6)
[2024-03-30 07:38] LABS: ALT 14 U/L (4-49); AST 13 U/L (17-59); African American GFR (CKD) 13 (>60 ml/min/1.73 sqM); Albumin 3.6 g/dL (3.5-5.0); Alkaline Phosphatase 93 U/L (38-126); Anion Gap 7 mmol/L; Blood Urea Nitrogen 34 mg/dL (9-20); Calcium 8.7 mg/dL (8.4-10.2); Carbon Dioxide 33 mmol/L (22-30); Chloride 97 mmol/L (98-107); Glucose 96 mg/dL (74-99); Magnesium 1.8 mg/dL (1.6-2.3); Non-African American GFR(CKD) 11 (>60 ml/min/1.73 sqM); Potassium 4.5 mmol/L (3.5-5.1); Sodium 137 mmol/L (137-145); Total Bilirubin 0.4 mg/dL (0.2-1.3); Total Protein 6.2 g/dL (6.3-8.2)
[2024-03-30 08:47] VITALS: RESP 17; TEMP 98.3
[2024-03-30] MEDS: AMIODARONE 100 MG TAB PO SCH (08:53)
[2024-03-30] MEDS: BUTRANS TRANSDERM SCH (08:56)
[2024-03-30 11:32] VITALS: BP 131/81; PULSE 65
--- NOTE | 2024-03-30 12:46 | P.PN ---
Subjective Progress Note Date: 03/30/24 Hospital course: Patient is a pleasant 68-year-old male with a past medical history of CAD, paroxysmal atrial fibrillation on anticoagulation with Eliquis, hypertension, hyperlipidemia, ESRD on dialysis( Monday/Monday/Monday), BPH, severe neuropathy of bilateral lower extremities, and nicotine dependence. He presented to the emergency department on 03/25/2024 secondary to reports of nausea and tachycardia. Upon arrival to our facility, patient underwent evaluation in the emergency department. Vital signs upon arrival show blood p ressure 112/86, heart rate 135, respiratory rate 19, temp 98.2 F, and SpO2 of 94% on room air. EKG completed showing atrial flutter at 132 bpm. Chest x-ray negative for acute cardiopulmonary process. Labs completed and reviewed. CBC showing leukocytosis with WBC count of 10.8 and hemoglobin of 11.6. Coagulation normal findings. BMP showing hyponatremia with sodium of 136 and mild hyperkalemia with potassium of 5.2, bicarb elevated at 31 and renal function consistent with known ESRD with BUN of 28, creatinine of 4.00, GFR of 15. Blood glucose 114. Lactic acid normal findings at 1.5. Liver profile unremarkable. Troponin was 0.028. Patient was started on Cardizem infusion and admitted under our services with consultation to cardiology and nephrology. Venous Doppler left lower extremity negative for DVT. Patient underwent TONEY with cardioversion on 03/29/2024 and successfully converted to normal sinus rhythm. Physical exam: Patient seen and fully evaluated at bedside this morning. Patient reports just feeling tired this morning but denies any other complaints. Patient informed we are awaiting clearance from cardiology for possible discharge later today versus tomorrow. Patient verbalized understanding and denied having any questions, needs, complaints, or concerns at this time. Vital signs reviewed and stable. General: Nontoxic, no distress and appears stated age. Derm: Skin warm and dry, normal coloration for ethnicity. Head: Atraumatic, normocephalic and symmetric. Eyes: EOM's intact, no lid lag, and anicteric sclera Mouth: no lip lesions, mucus membranes moist Cardiovascular: Irregularly irregular, no obvious murmur noted, positive posterior tibial pulses bilaterally, and cap refill < 2 seconds. Lungs: Respirations even, regular, and unlabored on r 2 L O2 via nasal cannula. Lungs CTA bilaterally, no rhonchi, no rales, no wheezing, and no accessory muscle usage. Abdominal: soft, nontender to palpation, no guarding, no appreciable organomegaly Ext: ROM intact. No gross muscle atrophy, no edema, no contractures Neuro: Speech clear, face symmetrical and CN II-XII grossly intact with no noted focal neuro deficits Psych: Alert and oriented to person, place, time, and situation. Appropriate and pleasant affect. Assessment and Plan of Care: Atrial flutter with RVR, currently maintaining normal sinus rhythm status post TONEY with cardioversion -Patient underwent TONEY with cardioversion on 03/29/2024 and successfully converted to normal sinus rhythm. -Cardiology following, awaiting cardiac clearance for discharge -Continue oral Cardizem 60 mg 3 times daily, amiodarone 100 mg daily, metoprolol 25 mg twice daily and Eliquis 5 mg twice daily. -Patient to remain on continuous telemetry monitoring. ESRD on hemodialysis Hyperkalemia -Nephrology following and managing hemodialysis. Patient last underwent dialysis on 03/29/2024. -Patient to remain on continuous telemetry monitoring. -Continue Renvela 2400 mg 3 times daily with meals and 800 mg at bedtime. CAD Hypertension Hyperlipidemia -Patient to continue daily medication regimen with Eliquis 5 mg twice daily, atorvastatin 10 mg nightly, and metoprolol 25 mg twice daily. Severe peripheral neuropathy -Continue gabapentin 200 mg 3 times daily. BPH -Continue Flomax 0.4 mg nightly. Data and imaging reviewed: Morning labs completed and reviewed. CBC showing stable normocytic anemia with hemoglobin of 11.9. BMP showing hyperkalemia with potassium of 5.4, hypercarbia with bicarb of 31, and elevated BUN of 47, creatinine of 7.16, GFR of 7. Blood glucose 98. Magnesium 2.2. Vital signs reviewed. Blood pressure 139/68, heart rate 78, respiratory rate 17, temp 98.3 F, and SpO2 of 95% on room air. CODE STATUS: Full code DVT prophylaxis: Eliquis Anticipated discharge date: Pending cardiac clearance for discharge Anticipated discharge place: Home Patient was seen independently by Nurse Practitioner. This document was prepared using [employer] dictation software. Please allow for errors in supplier relationship director while rare they do occur. Harpal Kaufman NP rendered care for this patient independently, reviewed the findings and plan as documented in the note above and agree with plan. I did not physically speak with or examine the patient on this date. . Objective - Vital Signs Vital signs: Vital Signs Temp 98.3 F 03/30/24 08:46 Pulse 65 03/30/24 11:27 Resp 17 03/30/24 11:27 BP 131/81 03/30/24 11:27 Pulse Ox 95 03/30/24 11:27 FiO2 Intake & Output 03/29/24 03/30/24 03/30/24 18:59 06:59 18:59 Intake Total 880 1000 180 Output Total 600 1000 600 Balance 280 0 -420 Weight 75.8 kg Intake: IV 700 Oral 180 180 Hemodialysis 1000 Output: Urine 600 600 Hemodialysis 500 Hemodialysis Net Amount 500 Other: Voiding Method Urinal Urinal Urinal # Voids 2 1 # Bowel Movements 1 - Labs CBC & Chem 7: 03/30/24 06:38 03/30/24 06:38 Labs: Abnormal Lab Results - Last 24 Hours (Table) 03/30/24 03/30/24 Range/Units 06:38 06:38 RBC 3.32 L (4.30-5.90) m/uL Hgb 10.4 L (13.0-17.5) gm/dL Hct 31.5 L (39.0-53.0) % Chloride 97 L (98-107) mmol/L Carbon Dioxide 33 H (22-30) mmol/L BUN 34 H (9-20) mg/dL Creatinine 5.11 H (0.66-1.25) mg/dL AST 13 L (17-59) U/L Total Protein 6.2 L (6.3-8.2) g/dL
--- NOTE | 2024-03-30 13:00 | P.PN ---
Subjective patient is seen for follow-up for end-stage renal disease. Status post hemodialysis yesterday. Tolerated treatment well. No significant complaints today. Objective - Vital Signs Vital signs: Vital Signs Temp 98.3 F 03/30/24 08:46 Pulse 65 03/30/24 11:27 Resp 17 03/30/24 11:27 BP 131/81 03/30/24 11:27 Pulse Ox 95 03/30/24 11:27 FiO2 Intake & Output 03/29/24 03/30/24 03/30/24 18:59 06:59 18:59 Intake Total 880 1000 420 Output Total 600 1000 600 Balance 280 0 -180 Weight 75.8 kg Intake: IV 700 Oral 180 420 Hemodialysis 1000 Output: Urine 600 600 Hemodialysis 500 Hemodialysis Net Amount 500 Other: Voiding Method Urinal Urinal Urinal # Voids 2 1 # Bowel Movements 1 - Exam patient is awake, comfortable, no acute distress. Examination of the heart S1 and S2 Examination of the lungs bilateral breath sounds are heard Abdomen is soft nontender Examination of lower extremity shows no significant edema PRACTICE CLINICIAN exam grossly intact - Labs CBC & Chem 7: 03/30/24 06:38 03/30/24 06:38 Labs: Abnormal Lab Results - Last 24 Hours (Table) 03/30/24 03/30/24 Range/Units 06:38 06:38 RBC 3.32 L (4.30-5.90) m/uL Hgb 10.4 L (13.0-17.5) gm/dL Hct 31.5 L (39.0-53.0) % Chloride 97 L (98-107) mmol/L Carbon Dioxide 33 H (22-30) mmol/L BUN 34 H (9-20) mg/dL Creatinine 5.11 H (0.66-1.25) mg/dL AST 13 L (17-59) U/L Total Protein 6.2 L (6.3-8.2) g/dL Assessment and Plan Assessment: 1. End-stage renal disease maintained on hemodialysis on Monday schedule. 2. A flutter maintained on Cardizem and amiodarone. Cardiology following. 3. Hypertension with chronic kidney disease. Stable. 4. Chronic kidney disease mineral bone disease maintained on Renvela. Plan: maintain hemodialysis on Monday schedule
[2024-03-30] MEDS: HYDROcodone/APAP 7.5-325MG 1 EACH TAB PO PRN (13:17)
--- NOTE | 2024-03-30 14:41 | P.PN ---
Subjective Progress Note Date: 03/30/24 This is a 68-year-old male patient of Dr. Paulo Blandon with past medical history of end-stage renal disease on hemodialysis Monday, atrial flutter, hypertension, dyslipidemia. We have been asked to evaluate the patient for atrial flutter with RVR. Patient states he does not know why he is here he said they just brought me in here. Patient apparently resides at [facility] and was having some GI upset with nausea and vomiting and then was complaining of some dizziness and heart rate was found to be 130 and he was brought in to the emergency center for evaluation. Patient has been in atrial flutter fluctuating between about 90-130. Discussed cardioversion with the jaleel monsivais and he is agreeable to move forward. He denies having any chest pain, no palpitations, no lightheadedness or dizziness. Blood pressure 115/69, heart rate 68, pulse ox 95% on room air. Patient has been started on Cardizem drip which was increased to 10 mg/h. Patient has been resumed on Eliquis. -EKG: Atrial flutter at 132 bpm -Chest x-ray: No acute process -Laboratory studies: WBC 10.8, hemoglobin 11.6. Sodium 136, potassium 5.2, BUN 28 creatinine 4. Troponin negative x 1. -Home cardiac medications: Amiodarone 100 mg daily, Eliquis 5 mg twice daily, atorvastatin 10 mg at bedtime, Lopressor 25 mg twice daily, Nitrostat as needed. -Echocardiogram performed 07/25/2023 reveals EF 60 to 65%, mild mitral regurgitation, mild aortic regurgitation. -Lexiscan Cardiolite stress test performed 07/25/2023: Manage defect involving the apical lateral myocardium with no definite reversible area of ischemia. 03/27/2024 Patient seen and examined. Due to scheduling difficulties, TONEY and car dioversion was to be delayed until this morning but again delayed because patient was getting dialysis. Patient's heart rate is now running in the 60s but he remains in atrial fibrillation. Heart rate will jump up to the 120s with minimal activity. Patient remains on Cardizem drip at 15 mg/h. Blood pressure 104/75, heart rate 68, pulse ox 96% on 3 L nasal cannula. Repeat blood work reveals hemoglobin 10.8, BUN 41 creatinine 6.7. Updated patient and sister at the bedside. 03/28/24 Patient remains in atrial flutter usually rate controlled except with activity goes up to 130s. Blood pressure 110/68, pulse ox 96% on 3 L. Repeat blood work reveals hemoglobin 11.8. Yesterday, Cardizem drip was discontinued and he was started on oral 60 mg every 8 hours and continued on beta-parvez, 25 mg twice daily. 03/30 Seen and examined bedside this a.m. Normal sinus rhythm, hemodynamically st able. Status post TONEY cardioversion Physical examination: Gen: This is a 68-year-old male in no acute distress VS: reviewed HEENT: Head is atraumatic, normocephalic. Pupils equal, round. Sclerae is anicteric. NECK: Supple. No JVD. LUNGS: Clear to auscultation. No wheezes or rhonchi. No intercostal retractions. HEART: Regular rate and rhythm. No murmur. ABDOMEN: Soft No tenderness. EXTREMITIES: No pedal edema. No calf tenderness. NEUROLOGICAL: Patient is awake, alert and oriented x3. Assessment: Typical atrial flutter with RVR End-stage renal disease on hemodialysis Monday Hypertension Dyslipidemia Plan: Continue amiodarone 100 mg daily, Eliquis 5 mg twice daily, atorvastatin 10 mg at bedtime, metoprolol tartrate 25 g twice daily Patient is cleared from cardiology. Recommend outpatient follow-up. Objective - Vital Signs Vital signs: Vital Signs Temp 98.3 F 03/30/24 08:46 Pulse 65 03/30/24 11:27 Resp 17 03/30/24 11:27 BP 131/81 03/30/24 11:27 Pulse Ox 95 03/30/24 11:27 FiO2 Intake & Output 03/29/24 03/30/24 03/30/24 18:59 06:59 18:59 Intake Total 880 1000 420 Output Total 600 1000 600 Balance 280 0 -180 Weight 75.8 kg Intake: IV 700 Oral 180 420 Hemodialysis 1000 Output: Urine 600 600 Hemodialysis 500 Hemodialysis Net Amount 500 Other: Voiding Method Urinal Urinal Urinal # Voids 2 1 # Bowel Movements 1 - Labs CBC & Chem 7: 03/30/24 06:38 03/30/24 06:38 Labs: Abnormal Lab Results - Last 24 Hours (Table) 03/30/24 03/30/24 Range/Units 06:38 06:38 RBC 3.32 L (4.30-5.90) m/uL Hgb 10.4 L (13.0-17.5) gm/dL Hct 31.5 L (39.0-53.0) % Chloride 97 L (98-107) mmol/L Carbon Dioxide 33 H (22-30) mmol/L BUN 34 H (9-20) mg/dL Creatinine 5.11 H (0.66-1.25) mg/dL AST 13 L (17-59) U/L Total Protein 6.2 L (6.3-8.2) g/dL
--- NOTE | 2024-03-30 15:30 | P.DS ---
Providers Date of admission: 03/25/24 22:41 Expected date of discharge: 03/30/24 Attending physician: Vinay Her MD Consults: 03/25/24 22:39 Consult Physician Urgent Consulting Provider: [facility] Consult Reason/Comments: Atrial flutter with RVR Do you want consulting provider notified?: Yes, Notify in am 03/26/24 09:00 Consult Physician Routine Consulting Provider: Bernard Snyder Consult Reason/Comments: dialysis Do you want consulting provider notified?: Yes Primary care physician: Anderson Roberson [facility] Course: Discharge Diagnosis: Atrial flutter with RVR, currently maintaining normal sinus rhythm status post TONEY with cardioversion. Patient underwent TONEY with cardioversion on 03/29/2024 and successfully converted to normal sinus rhythm. Continue oral Cardizem 60 mg 3 times daily, amiodarone 100 mg daily, metoprolol 25 mg twice daily and Eliquis 5 mg twice daily. PFO. TONEY also revealed aortic valve to be tricuspid and function normally with trace aortic regurgitation, mild mitral regurgitation, and a PFO with positive bubble study with left atrial appendage free from clots and a preserved EF of 50 to 55%. Patient cleared from cardiology perspective, he will need to follow-up outpatient with cardiology for further discussion/management if indicated of PFO. ESRD on hemodialysis. Patient last underwent dialysis on 03/29/2024. Resume normal dialysis schedule Monday/Monday/Fridays as previously scheduled. Continue Renvela 2400 mg 3 times daily with meals and 800 mg at bedtime. Hyperkalemia. Resolved. CAD. Patient to continue daily medication regimen with Eliquis 5 mg twice daily, atorvastatin 10 mg nightly, and metoprolol 25 mg twice daily. Hypertension. Patient to continue daily medication regimen with metoprolol 25 mg twice daily. Hyperlipidemia. Patient to continue daily medication regimen with atorvastatin 10 mg nightly. Severe peripheral neuropathy. Continue gabapentin 200 mg 3 times daily. BPH. Continue Flomax 0.4 mg nightly. Hospital course: Patient is a pleasant 68-year-old male with a past medical history of CAD, paroxysmal atrial fibrillation on anticoagulation with Eliquis, hypertension, hyperlipidemia, ESRD on dialysis( Monday/Monday/Monday), BPH, severe neuropathy of bilateral lower extremities, and nicotine dependence. He presented to the emergency department on 03/25/2024 secondary to reports of nausea and tachycardia. Upon arrival to our facility, patient underwent evaluation in the emergency department. Vital signs upon arrival show blood pressure 112/86, heart rate 135, respiratory rate 19, temp 98.2 F, and SpO2 of 94% on room air. EKG completed showing atrial flutter at 132 bpm. Chest x-ray negative for acute cardiopulmonary process. Labs completed and reviewed. CBC showing leukocytosis with WBC count of 10.8 and hemoglobin of 11.6. Coagulation normal findings. BMP showing hyponatremia with sodium of 136 and mild hyperkalemia with potassium of 5.2, bicarb elevated at 31 and renal function consistent with known ESRD with BUN of 28, creatinine of 4.00, GFR of 15. Blood glucose 114. Lactic acid normal findings at 1.5. Liver profile unremarkable. Troponin was 0.028. Patient was started on Cardizem infusion and admitted under our services with consultation to cardiology and nephrology. Venous Doppler left lower extremity negative for DVT. Patient underwent TONEY with cardioversion on 03/29/2024 and successfully converted to normal sinus rhythm. TONEY also revealed aortic valve to be tricuspid and function normally with trace aortic regurgitation, mild mitral regurgitation, and a PFO with positive bubble study with left atrial appendage free from clots and a preserved EF of 50 to 55%. Evaluated by nephrology and received dialysis throughout hospitalization. Since cardioversion patient has maintained normal sinus mechanism and vital signs stable. Patient cleared from cardiology perspective and is free from any complaints at this time. Patient medically optimized and stable for discharge. Patient to follow-up outpatient with PCP Dr. Sumner 1 to 2 days and with dialysis as scheduled on Monday. Patient to follow-up with cardiology in 1 to 2 weeks. Physical exam: Vital signs reviewed and stable. General: Nontoxic, no distress and appears stated age. Derm: Skin warm and dry, normal coloration for ethnicity. Head: Atraumatic, normocephalic and symmetric. Eyes: EOM's intact, no lid lag, and anicteric sclera Mouth: no lip lesions, mucus membranes moist Cardiovascular: Regular rate and rhythm, no obvious murmur noted, positive posterior tibial pulses bilaterally, and cap refill < 2 seconds. Lungs: Respirations even, regular, and unlabored on r 2 L O2 via nasal cannula. Lungs CTA bilaterally, no rhonchi, no rales, no wheezing, and no accessory muscle usage. Abdominal: soft, nontender to palpation, no guarding, no appreciable organomegaly Ext: ROM intact. No gross muscle atrophy, no edema, no contractures Neuro: Speech clear, face symmetrical and CN II-XII grossly intact with no noted focal neuro deficits Psych: Alert and oriented to person, place, time, and situation. Appropriate and pleasant affect. A total of 35 minutes of time were spent preparing this complex discharge summary. Pt was discharged on 03/30/2024 at 3:19 PM. Patient was seen independently by Nurse Practitioner. This document was prepared using [employer] dictation software. Please allow for errors in field contractor while rare they do occur. Harpal Kaufman NP rendered care for this patient independently, reviewed the findings and plan as documented in the note above. I did not physically speak with or examine the patient on this date. Patient Condition at Discharge: Stable Plan - Discharge Summary Discharge Rx Participant: No New Discharge Prescriptions: Continue Cyanocobalamin [Vitamin B-12] 500 mcg PO DAILY@0800 Tamsulosin [Flomax] 0.4 mg PO HS@1999 Atorvastatin [Lipitor] 10 mg PO HS@1999 Menthol [Biofreeze] 1 applic TOPICAL BID PRN PRN Reason: Pain Acetaminophen [Tylenol Extra Strength] 1,000 mg PO TID PRN PRN Reason: Fever And/ Or Pain Sevelamer Carbonate 800 mg PO HS@1999 Sennosides [Senokot] 17.2 mg PO DAILY@0800 methocarbamoL [Robaxin] 500 mg PO HS@1999 Metoprolol Tartrate [Lopressor] 25 mg PO BID@08,1999 Buprenorphine [Butrans 10 MCG/HOUR] 1 patch TRANSDERM SA@0800 Diclofenac Sodium [Diclofenac Sodium 1%] 1 applic TOPICAL QID PRN PRN Reason: Pain methocarbamoL [Robaxin] 500 mg PO TID PRN PRN Reason: Pain Melatonin 3 mg PO HS PRN PRN Reason: Insomnia HYDROcodone/APAP 7.5-325MG [[place] 7.5-325] 1 tab PO TID PRN PRN Reason: Pain Sodium Bicarbonate Tab 650 mg PO BID@0800,1999 Sevelamer Carbonate 2,400 mg PO AC-TID@0 Patiromer Calcium Sorbitex [Veltassa] 1 packet PO SUTUTHSA@0800 Omeprazole [PriLOSEC] 20 mg PO BID@799,1999 Nitroglycerin Sl Tabs [Nitrostat] 0.4 mg SUBLINGUAL Q5M PRN tab PRN Reason: Chest Pain Amiodarone [Cordarone] 100 mg PO DAILY@0800 Albuterol Sulfate [Albuterol Sulfate Hfa] 1 puff PO RT-QID PRN PRN Reason: Wheezing Loratadine [Claritin] 10 mg PO DAILY@0800 Gabapentin [Neurontin] 200 mg PO TID@0800,1699,1999 Apixaban [Eliquis] 5 mg PO BID@799,1999 Budesonide/Formoterol Fumarate [Breyna 160-4.5 Mcg Inhaler] 1 puff INHALATION RT-BID@ Phenol 1.4% [place] [Sore Throat [place] (Chloraseptic)] 1 applic MUCOUS MEM Q2H PRN PRN Reason: Sore Throat guaiFENesin [guaiFENesin Oral Solution] 400 mg PO QID PRN PRN Reason: Cough Loperamide HCl [Loperamide] 2 mg PO QID PRN PRN Reason: Diarrhea Discharge Medication List Atorvastatin [Lipitor] 10 mg PO HS@199907/24/23 [History] Cyanocobalamin [Vitamin B-12] 500 mcg PO DAILY@0807/24/23 [History] Omeprazole [PriLOSEC] 20 mg PO BID@08,199907/24/23 [History] Patiromer Calcium Sorbitex [Veltassa] 1 packet PO SUTUTHSA@0800 07/24/23 [History] Sevelamer Carbonate 2,400 mg PO AC-TID@08,12,1730 07/24/23 [History] Sodium Bicarbonate Tab 650 mg PO BID@799,199907/24/23 [History] Tamsulosin [Flomax] 0.4 mg PO HS@199907/24/23 [History] Nitroglycerin Sl Tabs [Nitrostat] 0.4 mg SUBLINGUAL Q5M PRN tab 07/28/23 [Rx] Amiodarone [Cordarone] 100 mg PO DAILY@0800 09/13/23 [History] Acetaminophen [Tylenol Extra Strength] 1,000 mg PO TID PRN 03/26/24 [History] Albuterol Sulfate [Albuterol Sulfate Hfa] 1 puff PO RT-QID PRN 03/26/24 [History] Apixaban [Eliquis] 5 mg PO BID@08,199903/26/24 [History] Budesonide/Formoterol Fumarate [Breyna 160-4.5 Mcg Inhaler] 1 puff INHALATION RT-BID@799,199903/26/24 [History] Buprenorphine [Butrans 10 MCG/HOUR] 1 patch TRANSDERM SA@79903/26/24 [History] Diclofenac Sodium [Diclofenac Sodium 1%] 1 applic TOPICAL QID PRN 03/26/24 [History] Gabapentin [Neurontin] 200 mg PO TID@0800,1699,199903/26/24 [History] HYDROcodone/APAP 7.5-325MG [[place] 7.5-325] 1 tab PO TID PRN 03/26/24 [History] Loperamide HCl [Loperamide] 2 mg PO QID PRN 03/26/24 [History] Loratadine [Claritin] 10 mg PO DAILY@0803/26/24 [History] Melatonin 3 mg PO HS PRN 03/26/24 [History] Menthol [Biofreeze] 1 applic TOPICAL BID PRN 03/26/24 [History] Metoprolol Tartrate [Lopressor] 25 mg PO BID@799,199903/26/24 [History] Phenol 1.4% [place] [Sore Throat [place] (Chloraseptic)] 1 applic MUCOUS MEM Q2H PRN 03/26/24 [History] Sennosides [Senokot] 17.2 mg PO DAILY@0803/26/24 [History] Sevelamer Carbonate 800 mg PO HS@199903/26/24 [History] guaiFENesin [guaiFENesin Oral Solution] 400 mg PO QID PRN 03/26/24 [History] methocarbamoL [Robaxin] 500 mg PO HS@199903/26/24 [History] methocarbamoL [Robaxin] 500 mg PO TID PRN 03/26/24 [History] Follow up Appointment(s)/Referral(s): Matthew Espino MD [REFERRING] - 1-2 Days (Please call to schedule hospital follow up. ) Michael Blandon MD [STAFF PHYSICIAN] - 1 Week (Please call to schedule hopsital follow up. ) Patient Instructions/Handouts: Atrial Flutter (DC), Cardioversion (DC) Activity/Diet/Wound Care/Special Instructions: Activity: As tolerated. Take breaks as needed. Diet: Heart healthy and carb consistent diet. Avoid salts, or foods with hidden salts such as canned or boxed foods and frozen dinners. Extra salt makes your heart work harder and traps the fluid in your body for longer. Special Instructions: Take all of your medications as directed and remember to keep all of your doctor's appointments and follow-up as needed. You will need to follow-up with cardiology outpatient for further discussion/treatment of your PFO. Thank you for allowing us to participate in your care, it was truly a pleasure having you for our patient!!! Discharge Disposition: HOME SELF-CARE
== END 2024-03-30 16:07 | disposition home or self-care (01) | DRG 308 ==
LOC: EC 19:03 → 3SCARD 22:41
PROVIDERS: ADMIT Internal Medicine; ATTEND Internal Medicine
PROC: 3E033RZ Introduction of Antiarrhythmic into Peripheral Vein, Percutaneous Approach (ICD-10-PCS; 2024-03-26)
PROC: 5A1D70Z Performance of Urinary Filtration, Intermittent, Less than 6 Hours Per Day (ICD-10-PCS; 2024-03-27)
PROC: B24BZZ4 Ultrasonography of Heart with Aorta, Transesophageal (ICD-10-PCS; 2024-03-29)
PROC: 5A2204Z Restoration of Cardiac Rhythm, Single (ICD-10-PCS; principal; 2024-03-29 07:30)
DX: I48.3 Typical atrial flutter (principal); N18.6 End stage renal disease; I12.0 Hypertensive chronic kidney disease with stage 5 chronic kidney disease or end stage renal disease; Q21.12 Patent foramen ovale; E87.1 Hypo-osmolality and hyponatremia; I25.10 Atherosclerotic heart disease of native coronary artery without angina pectoris; E78.5 Hyperlipidemia, unspecified; N40.0 Benign prostatic hyperplasia without lower urinary tract symptoms; K21.9 Gastro-esophageal reflux disease without esophagitis; M89.8X9 Other specified disorders of bone, unspecified site; E87.5 Hyperkalemia; G62.9 Polyneuropathy, unspecified; I48.0 Paroxysmal atrial fibrillation; F17.200 Nicotine dependence, unspecified, uncomplicated; Z79.01 Long term (current) use of anticoagulants; Z99.2 Dependence on renal dialysis
CPT/HCPCS: 36415; 71046; 80053; 81001; 82150; 83605; 83690; 83735; 84484; 85025; 85027; 85610; 85730; 90935; 92960; 93005; 93312; 93320; 93325; 94640; 94760; 96365; 96366; 99285

== ENCOUNTER 2024-04-05 23:25 | Inpatient (IN) | payer OTHER ==
--- NOTE | 2024-04-05 23:53 | ED ---
General Adult HPI - General Chief complaint: Recheck/Abnormal Lab/Rx Stated complaint: Near Syncope Time Seen by Provider: 04/05/24 23:51 Source: EMS Mode of arrival: EMS Limitations: altered mental status (Patient appears somewhat delirious) - History of Present Illness Initial comments: This patient is a 68-year-old man who arrives to have evaluation for generalized weakness. The patient states that he has felt this way previously with urinary tract infection. Patient also admits to having missed last dialysis session because he was not feeling well. Patient otherwise not able to provide much history. He denies pain. No dyspnea. -: unknown Severity scale (1-10): 0 Consistency: constant Improves with: none Worsens with: none Associated Symptoms: weakness Treatments Prior to Arrival: none - Related Data Home Medications Medication Instructions Recorded Confirmed Cyanocobalamin [Vitamin B-12] 500 mcg PO DAILY@0800 07/24/23 04/06/24 Omeprazole [PriLOSEC] 20 mg PO BID@0800,199907/24/23 04/06/24 Patiromer Calcium Sorbitex 1 packet PO SUTUTHSA@0800 07/24/23 04/06/24 [Veltassa] Sodium Bicarbonate Tab 650 mg PO BID@08,199907/24/23 04/06/24 Tamsulosin [Flomax] 0.4 mg PO HS@199907/24/23 04/06/24 Acetaminophen [Tylenol Extra 1,000 mg PO TID PRN 03/26/24 04/06/24 Strength] Albuterol Sulfate [Albuterol 1 puff PO RT-QID PRN 03/26/24 04/06/24 Sulfate Hfa] Apixaban [Eliquis] 5 mg PO BID@0800,199903/26/24 04/06/24 Budesonide/Formoterol Fumarate 1 puff INHALATION RT-BID@799,199903/26/24 04/06/24 [Breyna 160-4.5 Mcg Inhaler] Buprenorphine [Butrans 10 MCG/HOUR] 1 patch TRANSDERM SA@0800 03/26/24 04/06/24 Diclofenac Sodium [Diclofenac 1 applic TOPICAL QID PRN 03/26/24 04/06/24 Sodium 1%] Gabapentin [Neurontin] 200 mg PO TID@0800,170,199903/26/24 04/06/24 Loperamide HCl [Loperamide] 2 mg PO QID PRN 03/26/24 04/06/24 Loratadine [Claritin] 10 mg PO DAILY@0800 03/26/24 04/06/24 Melatonin 3 mg PO HS PRN 03/26/24 04/06/24 Menthol [Biofreeze] 1 applic TOPICAL BID PRN 03/26/24 04/06/24 Phenol 1.4% [place] [Sore Throat 1 applic MUCOUS MEM Q2H PRN 03/26/24 04/06/24 [place] (Chloraseptic)] Sennosides [Senokot] 17.2 mg PO DAILY@0803/26/24 04/06/24 methocarbamoL [Robaxin] 500 mg PO HS@199903/26/24 04/06/24 methocarbamoL [Robaxin] 500 mg PO TID PRN 03/26/24 04/06/24 Carboxymethylcellulos/Glycerin 1 - 2 drop BOTH EYES TID PRN 04/06/24 04/06/24 [Refresh Relieva 0.5-0.9% Drop] Cinacalcet HCl [Sensipar] 90 mg PO MOWEFR 04/06/24 04/06/24 Ipratropium-Albuterol Nebulize 3 ml INHALATION RT-BID PRN 04/06/24 04/06/24 [Duoneb 0.5 mg-3 mg/3 ml Soln] Previous Rx's Medication Instructions Recorded Nitroglycerin Sl Tabs [Nitrostat] 0.4 mg SUBLINGUAL Q5M PRN tab 07/28/23 Amiodarone [Cordarone] 200 mg PO BID 30 Days #60 tab 04/10/24 Atorvastatin [Lipitor] 20 mg PO HS 30 Days #30 tab 04/10/24 Metoprolol Tartrate [Lopressor] 25 mg PO TID 30 Days #90 tab 04/10/24 Midodrine [ProAmatine] 5 mg PO AC-TID 30 Days #90 tab 04/10/24 cefuroxime axetiL [Ceftin] 500 mg PO DAILY #14 tab 04/10/24 Allergies Allergy/AdvReac Type Severity Reaction Status Date / Time No Known Allergies Allergy Verified 04/05/24 23:42 Review of Systems ROS Statement: Those systems with pertinent positive or pertinent negative responses have been documented in the HPI. ROS Other: All systems not noted in ROS Statement are negative. Limitations: ROS unobtainable due to patients medical condition Constitutional: Reports: weakness Respiratory: Denies: cough, dyspnea Cardiovascular: Denies: chest pain Gastrointestinal: Denies: abdominal pain, vomiting Musculoskeletal: Denies: back pain Neurological: Denies: headache Past Medical History Past Medical History: Atrial Fibrillation, Dialysis, GERD/Reflux, Hyperlip idemia, Hypertension Additional Past Medical History / Comment(s): BPH, spinal arthritis, severe neuropathy of feet bilaterally, TBI History of Any Multi-Drug Resistant Organisms: None Reported Past Surgical History: Heart Catheterization, Hernia Repair Additional Past Surgical History / Comment(s): AV fistula placed Past Anesthesia/Blood Transfusion Reactions: No Reported Reaction Past Psychological History: No Psychological Hx Reported Smoking Status: Current every day smoker Past Alcohol Use History: None Reported Past Drug Use History: None Reported General Exam Limitations: no limitations General appearance: alert, in no apparent distress Head exam: Present: atraumatic, normocephalic Eye exam: Present: normal appearance. Absent: scleral icterus, conjunctival injection ENT exam: Present: mucous membranes dry Neck exam: Present: normal inspection Respiratory exam: Present: normal lung sounds bilaterally. Absent: respiratory distress, wheezes, rales, rhonchi, stridor, accessory muscle use Cardiovascular Exam: Present: regular rate, normal rhythm, systolic murmur. Absent: diastolic murmur, rubs, gallop GI/Abdominal exam: Present: soft. Absent: distended, tenderness, guarding, rebound, rigid, mass Extremities exam: Present: normal inspection, normal capillary refill. Absent: pedal edema, calf tenderness Back exam: Present: normal inspection. Absent: CVA tenderness (R), CVA tenderness (L) Neurological exam: Present: alert Skin exam: Present: warm, dry, intact, normal color. Absent: rash Course Vital Signs 04/05/24 04/05/24 04/05/24 23:38 23:53 23:55 Temperature 99.8 F H Pulse Rate 80 71 78 Respiratory 18 18 18 Rate Blood Pressure 68/38 71/51 71/46 O2 Sat by Pulse 96 95 95 Oximetry 04/06/24 04/06/24 04/06/24 00:00 00:12 00:30 Temperature Pulse Rate 76 65 67 Respiratory 18 18 20 Rate Blood Pressure 70/50 80/51 91/57 O2 Sat by Pulse 95 95 98 Oximetry 04/06/24 04/06/24 04/06/24 01:00 01:10 01:30 Temperature Pulse Rate 68 68 71 Respiratory 18 18 18 Rate Blood Pressure 97/62 92/66 105/60 O2 Sat by Pulse 96 95 98 Oximetry 04/06/24 04/06/24 04/06/24 02:00 03:00 04:00 Temperature Pulse Rate 72 73 69 Respiratory 18 18 18 Rate Blood Pressure 99/62 97/63 102/58 O2 Sat by Pulse 96 96 95 Oximetry 04/06/24 04/06/24 04/06/24 05:00 06:34 07:00 Temperature 100.1 F H 101.2 F H Pulse Rate 64 82 76 Respiratory 18 20 20 Rate Blood Pressure 103/67 113/62 115/62 O2 Sat by Pulse 95 97 96 Oximetry 04/06/24 04/06/24 04/06/24 08:00 09:00 10:00 Temperature 100.8 F H 100.0 F H 100.0 F H Pulse Rate 74 85 86 Respiratory 20 18 20 Rate Blood Pressure 111/62 110/60 116/65 O2 Sat by Pulse 96 96 96 Oximetry 04/06/24 04/06/24 04/06/24 11:00 12:00 13:49 Temperature 101.8 F H 100.5 F H Pulse Rate 84 96 Respiratory 20 20 Rate Blood Pressure 118/65 96/64 O2 Sat by Pulse 96 98 Oximetry 04/06/24 04/06/24 04/06/24 17:51 20:01 21:36 Temperature 98.2 F 100.5 F H Pulse Rate 99 90 Respiratory 20 16 Rate Blood Pressure 122/69 114/90 O2 Sat by Pulse 97 Oximetry 04/06/24 04/06/24 22:39 23:04 Temperature 100.7 F H Pulse Rate 87 90 Respiratory 16 16 Rate Blood Pressure 105/58 105/61 O2 Sat by Pulse 95 94 L Oximetry - Reevaluation(s) Reevaluation #1: 04/05/24 23:52 Sepsis bolus held as patient is dialysis patient who has missed session and concern about fluid overload. EKG Findings - EKG Comments: EKG Findings:: I rhythm appears to be junctional with a rate of 75 bpm. - EKG Results: EKG: interpreted by ERMD, normal axis, normal QRS, normal ST/T Medical Decision Making - Medical Decision Making The patient had chest x-ray that I interpreted as negative for acute infiltrate, pneumothorax, congestive heart failure Was pt. sent in by a medical professional or institution (, [facility], [facility], urgent care, hospital, or custodial...) When possible be specific @ -[No] Did you speak to anyone other than the patient for history (EMS, parent, family, police, friend...)? What history was obtained from this source @ -[EMS did give some history Did you review nursing and triage notes (agree or disagree)? Why? @ -[I reviewed and agree with nursing and triage notes] Were old charts reviewed (outside hosp., previous admission, EMS record, old EKG, old radiological studies, urgent care reports/EKG's, custodial records)? Report findings @ -[No old charts were reviewed] Differential Diagnosis (chest pain, altered mental status, abdominal pain women, abdominal pain men, vaginal bleeding, weakness, fever, dyspnea, syncope, headache, dizziness, GI bleed, back pain, seizure, CVA, palpatations, mental health, musculoskeletal)? @ -Differential Weakness: Hypoglycemia, shock, sepsis, hyponatremia, anemia, infection, RI, ETOH, adverse medicine reaction, overdose, stroke, this is not meant to be an all-inclusive list. EKG interpreted by me (3pts min.). @ -[I interpreted as above] X-rays interpreted by me (1pt min.). @ -[I interpreted as above CT interpreted by me (1pt min.). @ -[None done] U/S interpreted by me (1pt. min.). @ -[None done] What testing was considered but not performed or refused? (CT, X-rays, U/S, labs)? Why? @ -[None] What meds were considered but not given or refused? Why? @ -[None] Did you discuss the management of the patient with other professionals (professionals i.e. [facility] Soriano, [facility], lab, RT, psych nurse, social science analyst, registered massage therapist, teacher, college service officer, community case manager)? Give summary @ -[Case discussed with admitting physician and treatment recommendations were incorporated Was smoking cessation discussed for >3mins.? @ -[No] Was critical care preformed (if so, how long)? @ -[Yes, 30 minutes Were there social determinants of health that impacted care today? How? (H omelessness, low income, unemployed, alcoholism, drug addiction, transportation, low edu. Level, literacy, decrease access to med. care, longterm, rehab)? @ -[No] Was there de-escalation of care discussed even if they declined (Discuss DNR or withdrawal of care, Hospice)? DNR status @ -[No] What co-morbidities impacted this encounter? (DM, HTN, Smoking, COPD, CAD, Cancer, CVA, ARF, Chemo, Hep., AIDS, mental health diagnosis, sleep apnea, morbid obesity)? @ -[End-stage renal disease Was patient admitted / discharged? Hospital course, mention meds given and route, prescriptions, significant lab abnormalities, going to OR and other pertinent info. @ -[Patient is 68-year-old man, dialysis patient, here with weakness and confusion. The patient does appear septic and is started on IV antibiotics. The patient initial fluid bolus limited as he is dialysis patient and had missed last dialysis session. Patient will be admitted with infectious disease and nephrology consultations. Undiagnosed new problem with uncertain prognosis? @ -[No] Drug Therapy requiring intensive monitoring for toxicity (Heparin, Nitro, Insulin, Cardizem)? @ -[No] Were any procedures done? @ -[No] Diagnosis/symptom? @ -[Acute urinary tract infection Sepsis Chronic renal failure on hemodialysis Acute, or Chronic, or Acute on Chronic? @ -[Acute Uncomplicated (without systemic symptoms) or Complicated (systemic symptoms)? @ -[Complicated by sepsis Side effects of treatment? @ -[No] Exacerbation, Progression, or Severe Exacerbation? @ -[No] Poses a threat to life or bodily function? How? (Chest pain, USA, RI, pneumonia, PE, COPD, DKA, ARF, appy, cholecystitis, CVA, Diverticulitis, Homicidal, Suicidal, threat to staff... and all critical care pts) @ -[Yes - Lab Data Result diagrams: 04/09/24 06:42 04/09/24 06:42 Lab Results 04/06/24 04/06/24 04/06/24 Range/Units 00:00 00:00 00:00 WBC 18.1 H (3.8-10.6) k/uL RBC 4.06 L (4.30-5.90) m/uL Hgb 12.9 L (13.0-17.5) gm/dL Hct 38.4 L (39.0-53.0) % MCV 94.7 (80.0-100.0) fL MCH 31.8 (25.0-35.0) pg MCHC 33.6 (31.0-37.0) g/dL RDW 14.2 (11.5-15.5) % Plt Count 155 (150-450) k/uL MPV 7.7 Neutrophils % 92 % Lymphocytes % 3 % Monocytes % 4 % Eosinophils % 1 % Basophils % 0 % Neutrophils # 16.7 H (1.3-7.7) k/uL Lymphocytes # 0.5 L (1.0-4.8) k/uL Monocytes # 0.7 (0-1.0) k/uL Eosinophils # 0.1 (0-0.7) k/uL Basophils # 0.1 (0-0.2) k/uL PT 11.8 (10.0-12.5) sec INR 1.1 (<1.2) APTT 28.8 (22.0-30.0) sec Sodium 137 (137-145) mmol/L Potassium 4.4 (3.5-5.1) mmol/L Chloride 100 (98-107) mmol/L Carbon Dioxide 29 (22-30) mmol/L Anion Gap 8 mmol/L BUN 33 H (9-20) mg/dL Creatinine 5.08 H (0.66-1.25) mg/dL Est GFR (CKD-EPI)AfAm 13 (>60 ml/min/1.73 sqM) Est GFR (CKD-EPI)NonAf 11 (>60 ml/min/1.73 sqM) Glucose 106 H (74-99) mg/dL Lactic Ac Sepsis Rflx Plasma Lactic Acid Jason (0.7-2.0) mmol/L Calcium 8.5 (8.4-10.2) mg/dL Phosphorus (2.4-5.1) mg/dL Total Bilirubin 0.7 (0.2-1.3) mg/dL AST 17 (17-59) U/L ALT 17 (4-49) U/L Alkaline Phosphatase 112 (38-126) U/L Troponin I (0.000-0.034) ng/mL NT-Pro-B Natriuret Pep 1770 pg/mL Total Protein 7.2 (6.3-8.2) g/dL Albumin 4.4 (3.5-5.0) g/dL Procalcitonin (0.02-0.50) ng/mL Urine Color Urine Appearance (Clear) Urine pH (5.0-8.0) Ur Specific [place] (1.001-1.035) Urine Protein (Negative) Urine Glucose (UA) (Negative) Urine Ketones (Negative) Urine Blood (Negative) Urine Nitrite (Negative) Urine Bilirubin (Negative) Urine Urobilinogen (<2.0) mg/dL Ur Leukocyte Esterase (Negative) Urine RBC (0-5) /hpf Urine WBC (0-5) /hpf Ur Squamous Epith Cells (0-4) /hpf Amorphous Sediment (None) /hpf Urine Bacteria (None) /hpf Granular Casts (0) /lpf Urine Yeast (Budding) (None) /hpf 04/06/24 04/06/24 04/06/24 Range/Units 00:00 00:00 00:00 WBC (3.8-10.6) k/uL RBC (4.30-5.90) m/uL Hgb (13.0-17.5) gm/dL Hct (39.0-53.0) % MCV (80.0-100.0) fL MCH (25.0-35.0) pg MCHC (31.0-37.0) g/dL RDW (11.5-15.5) % Plt Count (150-450) k/uL MPV Neutrophils % % Lymphocytes % % Monocytes % % Eosinophils % % Basophils % % Neutrophils # (1.3-7.7) k/uL Lymphocytes # (1.0-4.8) k/uL Monocytes # (0-1.0) k/uL Eosinophils # (0-0.7) k/uL Basophils # (0-0.2) k/uL PT (10.0-12.5) sec INR (<1.2) APTT (22.0-30.0) sec Sodium (137-145) mmol/L Potassium (3.5-5.1) mmol/L Chloride (98-107) mmol/L Carbon Dioxide (22-30) mmol/L Anion Gap mmol/L BUN (9-20) mg/dL Creatinine (0.66-1.25) mg/dL Est GFR (CKD-EPI)AfAm (>60 ml/min/1.73 sqM) Est GFR (CKD-EPI)NonAf (>60 ml/min/1.73 sqM) Glucose (74-99) mg/dL Lactic Ac Sepsis Rflx Plasma Lactic Acid Jason 3.1 H* (0.7-2.0) mmol/L Calcium (8.4-10.2) mg/dL Phosphorus (2.4-5.1) mg/dL Total Bilirubin (0.2-1.3) mg/dL AST (17-59) U/L ALT (4-49) U/L Alkaline Phosphatase (38-126) U/L Troponin I <0.012 (0.000-0.034) ng/mL NT-Pro-B Natriuret Pep pg/mL Total Protein (6.3-8.2) g/dL Albumin (3.5-5.0) g/dL Procalcitonin 2.69 H (0.02-0.50) ng/mL Urine Color Urine Appearance (Clear) Urine pH (5.0-8.0) Ur Specific [place] (1.001-1.035) Urine Protein (Negative) Urine Glucose (UA) (Negative) Urine Ketones (Negative) Urine Blood (Negative) Urine Nitrite (Negative) Urine Bilirubin (Negative) Urine Urobilinogen (<2.0) mg/dL Ur Leukocyte Esterase (Negative) Urine RBC (0-5) /hpf Urine WBC (0-5) /hpf Ur Squamous Epith Cells (0-4) /hpf Amorphous Sediment (None) /hpf Urine Bacteria (None) /hpf Granular Casts (0) /lpf Urine Yeast (Budding) (None) /hpf 04/06/24 04/06/24 04/06/24 Range/Units 00:00 01:38 01:49 WBC (3.8-10.6) k/uL RBC (4.30-5.90) m/uL Hgb (13.0-17.5) gm/dL Hct (39.0-53.0) % MCV (80.0-100.0) fL MCH (25.0-35.0) pg MCHC (31.0-37.0) g/dL RDW (11.5-15.5) % Plt Count (150-450) k/uL MPV Neutrophils % % Lymphocytes % % Monocytes % % Eosinophils % % Basophils % % Neutrophils # (1.3-7.7) k/uL Lymphocytes # (1.0-4.8) k/uL Monocytes # (0-1.0) k/uL Eosinophils # (0-0.7) k/uL Basophils # (0-0.2) k/uL PT (10.0-12.5) sec INR (<1.2) APTT (22.0-30.0) sec Sodium (137-145) mmol/L Potassium (3.5-5.1) mmol/L Chloride (98-107) mmol/L Carbon Dioxide (22-30) mmol/L Anion Gap mmol/L BUN (9-20) mg/dL Creatinine (0.66-1.25) mg/dL Est GFR (CKD-EPI)AfAm (>60 ml/min/1.73 sqM) Est GFR (CKD-EPI)NonAf (>60 ml/min/1.73 sqM) Glucose (74-99) mg/dL Lactic Ac Sepsis Rflx Y Plasma Lactic Acid Jason (0.7-2.0) mmol/L Calcium (8.4-10.2) mg/dL Phosphorus 0.6 A* (2.4-5.1) mg/dL Total Bilirubin (0.2-1.3) mg/dL AST (17-59) U/L ALT (4-49) U/L Alkaline Phosphatase (38-126) U/L Troponin I (0.000-0.034) ng/mL NT-Pro-B Natriuret Pep pg/mL Total Protein (6.3-8.2) g/dL Albumin (3.5-5.0) g/dL Procalcitonin (0.02-0.50) ng/mL Urine Color Yellow Urine Appearance Turbid (Clear) Urine pH 8.0 (5.0-8.0) Ur Specific [place] 1.019 (1.001-1.035) Urine Protein 3+ H (Negative) Urine Glucose (UA) Negative (Negative) Urine Ketones Negative (Negative) Urine Blood Moderate H (Negative) Urine Nitrite Negative (Negative) Urine Bilirubin Negative (Negative) Urine Urobilinogen <2.0 (<2.0) mg/dL Ur Leukocyte Esterase Large H (Negative) Urine RBC 114 H (0-5) /hpf Urine WBC >182 H (0-5) /hpf Ur Squamous Epith Cells 2 (0-4) /hpf Amorphous Sediment Rare H (None) /hpf Urine Bacteria Moderate H (None) /hpf Granular Casts 25 (0) /lpf Urine Yeast (Budding) Many H (None) /hpf Disposition Clinical Impression: UTI (urinary tract infection), Sepsis, End stage renal disease on dialysis Disposition: ADMITTED IP TO THIS HOSP Condition: Fair Is patient prescribed a controlled substance at d/c from ED?: No
[2024-04-06] MEDS: SODIUM CHLORIDE 0.9% 500 ML 500 ML IV ONE (00:21)
[2024-04-06 00:25] LABS: Basophils # (A) 0.1 k/uL (0-0.2); Basophils % (A) 0 %; Eosinophils # (A) 0.1 k/uL (0-0.7); Eosinophils % (A) 1 %; HCT 38.4 % (39.0-53.0); HGB 12.9 gm/dL (13.0-17.5); Lymphocytes # (A) 0.5 k/uL (1.0-4.8); Lymphocytes % (A) 3 %; MCH 31.8 pg (25.0-35.0); MCHC 33.6 g/dL (31.0-37.0); MCV 94.7 fL (80.0-100.0); Mean Platelet Volume 7.7; Monocytes # (A) 0.7 k/uL (0-1.0); Monocytes % (A) 4 %; Neutrophils # (A) 16.7 k/uL (1.3-7.7); Neutrophils % (A) 92 %; Platelet Count 155 k/uL (150-450); RBC 4.06 m/uL (4.30-5.90); RDW 14.2 % (11.5-15.5); WBC 18.1 k/uL (3.8-10.6)
[2024-04-06 00:37] LABS: INR 1.1 (<1.2); Partial Thromboplastin Time 28.8 sec (22.0-30.0); Prothrombin Time 11.8 sec (10.0-12.5)
[2024-04-06 00:42] LABS: ALT 17 U/L (4-49); AST 17 U/L (17-59); African American GFR (CKD) 13 (>60 ml/min/1.73 sqM); Albumin 4.4 g/dL (3.5-5.0); Alkaline Phosphatase 112 U/L (38-126); Anion Gap 8 mmol/L; Blood Urea Nitrogen 33 mg/dL (9-20); Calcium 8.5 mg/dL (8.4-10.2); Carbon Dioxide 29 mmol/L (22-30); Chloride 100 mmol/L (98-107); Glucose 106 mg/dL (74-99); Non-African American GFR(CKD) 11 (>60 ml/min/1.73 sqM); Potassium 4.4 mmol/L (3.5-5.1); Sodium 137 mmol/L (137-145); Total Bilirubin 0.7 mg/dL (0.2-1.3); Total Protein 7.2 g/dL (6.3-8.2)
[2024-04-06 00:49] LABS: NT-Pro-B-Type Natriuretic Pept 1770 pg/mL
--- NOTE | 2024-04-06 01:09 | XR ---
EXAM: XR Chest, 1 View CLINICAL HISTORY: ITS.REASON XR Reason: Fever TECHNIQUE: Frontal view of the chest. COMPARISON: No relevant prior studies available. FINDINGS: Lungs: No consolidation or mass. Pleural space: No acute findings. Heart: Mild cardiomegaly. Bones/joints: No acute findings. IMPRESSION: No acute cardiopulmonary process.
[2024-04-06] MEDS ORDERED: VANCOMYCIN IV PER PHARMACY 1 EACH MISC MISCELLANE PRN (02:06)
[2024-04-06 02:48] LABS: Amorphous Sediment,Urine Rare /hpf; Appearance,Urine Turbid (Clear); Bacteria,Urine Moderate /hpf; Bilirubin,Urine Negative (Negative); Blood,Urine Moderate (Negative); Budding Yeast,Urine Many /hpf; Color,Urine Yellow; Glucose,Urine (UA) Negative (Negative); Granular Casts,Urine 25 /lpf (0); Ketones,Urine Negative (Negative); Leukocyte Esterase,Urine Large (Negative); Nitrite,Urine Negative (Negative); Protein,Urine 3+ (Negative); RBC,Urine 114 /hpf (0-5); Specific Gravity,Urine 1.019 (1.001-1.035); Squamous Epithelial Cell,Urine 2 /hpf (0-4); Urobilinogen,Urine <2.0 mg/dL (<2.0); WBC,Urine >182 /hpf (0-5)
[2024-04-06] MEDS: VANCOMYCIN 1,250 MG in SODIUM CHLORIDE 0.9% 250 ML IVPB ONE ×2 (02:52→18:17)
[2024-04-06] MEDS: ACETAMINOPHEN TAB 325 MG TAB PO PRN (06:38)
--- NOTE | 2024-04-06 10:16 | P.NPCON ---
History of Present Illness - Reason for Consult end stage renal disease - History of Present Illness Reason for consultation: End-stage renal disease History of present illness: Patient is a 68-year-old male seen in renal consultation for end-stage renal disease. He is maintained on hemodialysis on Monday schedule. Patient is a poor historian. I called the dialysis unit and confirmed that the patient did complete hemodialysis treatment yesterday. Patient noted to be febrile overnight with temperature as high as 101.2 F. Blood pressure was low in the systolic 60s over diastolic 30s to 40s on admission. He received half a liter bolus of normal saline. Most recent blood pressure 111/62. Patient is awake. Denies chest pain or shortness of breath. Receiving IV antibiotics. Vital signs are stable. General: No acute distress. HEENT: Head exam is unremarkable. LUNGS: No audible rhonchi or wheezes. HEART: Rate and Rhythm are regular. ABDOMEN: Nontender. EXTREMITITES: No edema. Past Medical History Past Medical History: Atrial Fibrillation, Dialysis, GERD/Reflux, Hyperlipidemia, Hypertension Additional Past Medical History / Comment(s): BPH, spinal arthritis, severe neuropathy of feet bilaterally, TBI History of Any Multi-Drug Resistant Organisms: None Reported Past Surgical History: Heart Catheterization, Hernia Repair Additional Past Surgical History / Comment(s): AV fistula placed Past Anesthesia/Blood Transfusion Reactions: No Reported Reaction Past Psychological History: No Psychological Hx Reported Smoking Status: Current every day smoker Past Alcohol Use History: None Reported Past Drug Use History: None Reported Medications and Allergies Home Medications Medication Instructions Recorded Confirmed Type Atorvastatin [Lipitor] 10 mg PO HS@199907/24/23 03/26/24 History Cyanocobalamin [Vitamin B-12] 500 mcg PO DAILY@0800 07/24/23 03/26/24 History Omeprazole [PriLOSEC] 20 mg PO BID@07/24/23 03/26/24 History Patiromer Calcium Sorbitex 1 packet PO SUTUTHSA@79907/24/23 03/26/24 History [Veltassa] Sevelamer Carbonate 2,400 mg PO AC-TID@08,12,1730 07/24/23 03/26/24 History Sodium Bicarbonate Tab 650 mg PO BID@08,199907/24/23 03/26/24 History Tamsulosin [Flomax] 0.4 mg PO HS@199907/24/23 03/26/24 History Nitroglycerin Sl Tabs [Nitrostat] 0.4 mg SUBLINGUAL Q5M PRN tab 07/28/23 03/26/24 Rx Amiodarone [Cordarone] 100 mg PO DAILY@0800 09/13/23 03/26/24 History Acetaminophen [Tylenol Extra 1,000 mg PO TID PRN 03/26/24 03/26/24 History Strength] Albuterol Sulfate [Albuterol 1 puff PO RT-QID PRN 03/26/24 03/26/24 History Sulfate Hfa] Apixaban [Eliquis] 5 mg PO BID@08,199903/26/24 03/26/24 History Budesonide/Formoterol Fumarate 1 puff INHALATION RT-BID@08,199903/26/24 1 05/26/23 History [Breyna 160-4.5 Mcg Inhaler] Buprenorphine [Butrans 10 MCG/HOUR] 1 patch TRANSDERM SA@0803/26/24 03/26/24 History Diclofenac Sodium [Diclofenac 1 applic TOPICAL QID PRN 03/26/24 03/26/24 History Sodium 1%] Gabapentin [Neurontin] 200 mg PO TID@0800,1700,199903/26/24 03/26/24 History HYDROcodone/APAP 7.5-325MG [[place] 1 tab PO TID PRN 03/26/24 03/26/24 History 7.5-325] Loperamide HCl [Loperamide] 2 mg PO QID PRN 03/26/24 03/26/24 History Loratadine [Claritin] 10 mg PO DAILY@0800 03/26/24 03/26/24 History Melatonin 3 mg PO HS PRN 03/26/24 03/26/24 History Menthol [Biofreeze] 1 applic TOPICAL BID PRN 03/26/24 03/26/24 History Metoprolol Tartrate [Lopressor] 25 mg PO BID@0800,199903/26/24 03/26/24 History Phenol 1.4% [place] [Sore Throat 1 applic MUCOUS MEM Q2H PRN 03/26/24 03/26/24 History [place] (Chloraseptic)] Sennosides [Senokot] 17.2 mg PO DAILY@0800 03/26/24 03/26/24 History Sevelamer Carbonate 800 mg PO HS@199903/26/24 03/26/24 History guaiFENesin [guaiFENesin Oral 400 mg PO QID PRN 03/26/24 03/26/24 History Solution] methocarbamoL [Robaxin] 500 mg PO HS@199903/26/24 03/26/24 History methocarbamoL [Robaxin] 500 mg PO TID PRN 03/26/24 03/26/24 History Allergies Allergy/AdvReac Type Severity Reaction Status Date / Time No Known Allergies Allergy Verified 04/05/24 23:42 Physical Exam Vitals: Vital Signs Temp Pulse Resp BP Pulse Ox 04/06/24 08:00 100.8 F H 74 20 111/62 96 04/06/24 07:00 101.2 F H 76 20 115/62 96 04/06/24 06:34 100.1 F H 82 20 113/62 97 04/06/24 05:00 64 18 103/67 95 04/06/24 04:00 69 18 102/58 95 04/06/24 03:00 73 18 97/63 96 04/06/24 02:00 72 18 99/62 96 04/06/24 01:30 71 18 105/60 98 04/06/24 01:10 68 18 92/66 95 04/06/24 01:00 68 18 97/62 96 04/06/24 00:30 67 20 91/57 98 04/06/24 00:12 65 18 80/51 95 04/06/24 00:00 76 18 70/50 95 04/05/24 23:55 78 18 71/46 95 04/05/24 23:53 71 18 71/51 95 04/05/24 23:38 99.8 F H 80 18 68/38 96 Intake and Output 04/05/24 04/06/24 04/06/24 22:59 06:59 14:59 Other: Weight 74.843 kg Results - Lab Results Most recent lab results Calcium 8.5 mg/dL (8.4-10.2) 04/06/24 00:00 04/06/24 00:00 04/06/24 00:00 Assessment and Plan Plan: Assessment: 1. End-stage renal disease maintained on hemodialysis on Monday schedule. Has a left upper extremity AV fistula. 2. Severe sepsis maintained on IV antibiotics. 3. Hypertension with chronic kidney disease. Currently controlled. Was hypotensive on admission. 4. Chronic kidney disease mineral bone disease. 5. Recent admission with a flutter. Heart rate currently controlled. Plan: Hemodialysis Monday. Follow-up cultures. Check phosphorus level. Thank you for the consultation. I will continue to follow the patient with you during his hospital stay.
--- NOTE | 2024-04-06 13:04 | P.HPIM ---
History of Present Illness 48-year-old male was sent in from dialysis unit patient had leukocytosis as well patient uses abnormal although patient does not have any UTI symptoms respiratory within normal limits. Patient is Monday dialysis. Patient is also on anticoagulation with Eliquis for atrial fibrillation. Patient denied any body aches denied any diarrhea nausea vomiting abdominal pain. REVIEW OF SYSTEMS: All other systems are negative except those mentioned in the HPI PHYSICAL EXAMINATION: GENERAL: The patient is alert and oriented x3, not in any acute distress. Well developed, well nourished. HEENT: Pupils are round and equally reacting to light. EOMI. No scleral icterus. No conjunctival pallor. Normocephalic, atraumatic. No pharyngeal erythema. No thyromegaly. CARDIOVASCULAR: S1 and S2 present. No murmurs, rubs, or gallops. PULMONARY: Chest is clear to auscultation, no wheezing or crackles. ABDOMEN: Soft, nontender, nondistended, normoactive bowel sounds. No palpable organomegaly. MUSCULOSKELETAL: No joint swelling or deformity. EXTREMITIES: No cyanosis, clubbing, or pedal edema. NEUROLOGICAL: Gross neurological examination did not reveal any focal deficits. SKIN: No rashes. Assessment and plan -Sepsis possibly of urinary tract infection vancomycin will be discontinued patient will be continued on Rocephin 1 g awaiting urine cultures and blood cultures -End-stage renal disease hemodialysis dependent: Nephrology is seeing the patient -Coronary artery disease -Hypertension -Hyperlipidemia -History of PFO -Severe peripheral neuropathy for which patient is on gabapentin -Benign prostatic atrophy -COPD without any acute exacerbation patient has mild wheezing for which we will use a inhaled steroids -Continue to: Use: Counseling was provided with patient is not willing to quit smoking DVT prophylaxis: On Eliquis for text Past Medical History Past Medical History: Atrial Fibrillation, Dialysis, GERD/Reflux, Hyperlipidemia, Hypertension Additional Past Medical History / Comment(s): BPH, spinal arthritis, severe neuropathy of feet bilaterally, TBI History of Any Multi-Drug Resistant Organisms: None Reported Past Surgical History: Heart Catheterization, Hernia Repair Additional Past Surgical History / Comment(s): AV fistula placed Past Anesthesia/Blood Transfusion Reactions: No Reported Reaction Past Psychological History: No Psychological Hx Reported Smoking Status: Current every day smoker Past Alcohol Use History: None Reported Past Drug Use History: None Reported Medications and Allergies Home Medications Medication Instructions Recorded Confirmed Type Atorvastatin [Lipitor] 10 mg PO HS@199907/24/23 03/26/24 History Cyanocobalamin [Vitamin B-12] 500 mcg PO DAILY@0800 07/24/23 03/26/24 History Omeprazole [PriLOSEC] 20 mg PO BID@0800,199907/24/23 03/26/24 History Patiromer Calcium Sorbitex 1 packet PO SUTUTHSA@0800 07/24/23 03/26/24 History [Veltassa] Sevelamer Carbonate 2,400 mg PO AC-TID@08,12,1730 07/24/23 03/26/24 History Sodium Bicarbonate Tab 650 mg PO BID@0800,199907/24/23 03/26/24 History Tamsulosin [Flomax] 0.4 mg PO HS@199907/24/23 03/26/24 History Nitroglycerin Sl Tabs [Nitrostat] 0.4 mg SUBLINGUAL Q5M PRN tab 07/28/23 03/26/24 Rx Amiodarone [Cordarone] 100 mg PO DAILY@0800 09/13/23 03/26/24 History Acetaminophen [Tylenol Extra 1,000 mg PO TID PRN 03/26/24 03/26/24 History Strength] Albuterol Sulfate [Albuterol 1 puff PO RT-QID PRN 03/26/24 03/26/24 History Sulfate Hfa] Apixaban [Eliquis] 5 mg PO BID@0800,199903/26/24 03/26/24 History Budesonide/Formoterol Fumarate 1 puff INHALATION RT-BID@08,199903/26/24 03/26/24 History [Breyna 160-4.5 Mcg Inhaler] Buprenorphine [Butrans 10 MCG/HOUR] 1 patch TRANSDERM SA@0800 03/26/24 03/26/24 History Diclofenac Sodium [Diclofenac 1 applic TOPICAL QID PRN 03/26/24 03/26/24 History Sodium 1%] Gabapentin [Neurontin] 200 mg PO TID@0800,1700,199903/26/24 03/26/24 History Loperamide HCl [Loperamide] 2 mg PO QID PRN 03/26/24 03/26/24 History Loratadine [Claritin] 10 mg PO DAILY@0800 03/26/24 03/26/24 History Melatonin 3 mg PO HS PRN 03/26/24 03/26/24 History Menthol [Biofreeze] 1 applic TOPICAL BID PRN 03/26/24 03/26/24 History Metoprolol Tartrate [Lopressor] 25 mg PO BID@0800,199903/26/24 03/26/24 History Phenol 1.4% [place] [Sore Throat 1 applic MUCOUS MEM Q2H PRN 03/26/24 03/26/24 History [place] (Chloraseptic)] Sennosides [Senokot] 17.2 mg PO DAILY@0803/26/24 03/26/24 History Sevelamer Carbonate 800 mg PO HS@199903/26/24 03/26/24 History methocarbamoL [Robaxin] 500 mg PO HS@199903/26/24 03/26/24 History methocarbamoL [Robaxin] 500 mg PO TID PRN 03/26/24 03/26/24 History Carboxymethylcellulos/Glycerin 1 - 2 drop BOTH EYES TID PRN 04/06/24 04/06/24 History [Refresh Relieva 0.5-0.9% Drop] Cinacalcet HCl [Sensipar] 90 mg PO MOWEFR 04/06/24 04/06/24 History Ipratropium-Albuterol Nebulize 3 ml INHALATION RT-BID PRN 04/06/24 04/06/24 History [Duoneb 0.5 mg-3 mg/3 ml Soln] Allergies Allergy/AdvReac Type Severity Reaction Status Date / Time No Known Allergies Allergy Verified 04/05/24 23:42 Physical Exam Vitals: Vital Signs Temp Pulse Resp BP Pulse Ox 04/06/24 12:00 101.8 F H 96 20 96/64 98 04/06/24 11:00 84 20 118/65 96 04/06/24 10:00 100.0 F H 86 20 116/65 96 04/06/24 09:00 100.0 F H 85 18 110/60 96 04/06/24 08:00 100.8 F H 74 20 111/62 96 04/06/24 07:00 101.2 F H 76 20 115/62 96 04/06/24 06:34 100.1 F H 82 20 113/62 97 04/06/24 05:00 64 18 103/67 95 04/06/24 04:00 69 18 102/58 95 04/06/24 03:00 73 18 97/63 96 04/06/24 02:00 72 18 99/62 96 04/06/24 01:30 71 18 105/60 98 04/06/24 01:10 68 18 92/66 95 04/06/24 01:00 68 18 97/62 96 04/06/24 00:30 67 20 91/57 98 04/06/24 00:12 65 18 80/51 95 04/06/24 00:00 76 18 70/50 95 04/05/24 23:55 78 18 71/46 95 04/05/24 23:53 71 18 71/51 95 04/05/24 23:38 99.8 F H 80 18 68/38 96 Intake and Output 04/05/24 04/06/24 04/06/24 22:59 06:59 14:59 Other: Weight 74.843 kg Results CBC & Chem 7: 04/06/24 00:00 04/06/24 00:00 Labs: Abnormal Lab Results - Last 24 Hours (Table) 04/06/24 04/06/24 04/06/24 Range/Units 00:00 00:00 00:00 WBC 18.1 H (3.8-10.6) k/uL RBC 4.06 L (4.30-5.90) m/uL Hgb 12.9 L (13.0-17.5) gm/dL Hct 38.4 L (39.0-53.0) % Neutrophils # 16.7 H (1.3-7.7) k/uL Lymphocytes # 0.5 L (1.0-4.8) k/uL BUN 33 H (9-20) mg/dL Creatinine 5.08 H (0.66-1.25) mg/dL Glucose 106 H (74-99) mg/dL Plasma Lactic Acid Jason 3.1 H* (0.7-2.0) mmol/L Procalcitonin (0.02-0.50) ng/mL Urine Protein (Negative) Urine Blood (Negative) Ur Leukocyte Esterase (Negative) Urine RBC (0-5) /hpf Urine WBC (0-5) /hpf Amorphous Sediment (None) /hpf Urine Bacteria (None) /hpf Urine Yeast (Budding) (None) /hpf 04/06/24 04/06/24 04/06/24 Range/Units 00:00 01:49 04:20 WBC (3.8-10.6) k/uL RBC (4.30-5.90) m/uL Hgb (13.0-17.5) gm/dL Hct (39.0-53.0) % Neutrophils # (1.3-7.7) k/uL Lymphocytes # (1.0-4.8) k/uL BUN (9-20) mg/dL Creatinine (0.66-1.25) mg/dL Glucose (74-99) mg/dL Plasma Lactic Acid Jason 2.1 H* (0.7-2.0) mmol/L Procalcitonin 2.69 H (0.02-0.50) ng/mL Urine Protein 3+ H (Negative) Urine Blood Moderate H (Negative) Ur Leukocyte Esterase Large H (Negative) Urine RBC 114 H (0-5) /hpf Urine WBC >182 H (0-5) /hpf Amorphous Sediment Rare H (None) /hpf Urine Bacteria Moderate H (None) /hpf Urine Yeast (Budding) Many H (None) /hpf
[2024-04-07 04:03] LABS: African American GFR (CKD) 8 (>60 ml/min/1.73 sqM); Anion Gap 10 mmol/L; Blood Urea Nitrogen 57 mg/dL (9-20); Calcium 8.4 mg/dL (8.4-10.2); Carbon Dioxide 22 mmol/L (22-30); Chloride 106 mmol/L (98-107); Glucose 97 mg/dL (74-99); Magnesium 1.7 mg/dL (1.6-2.3); Non-African American GFR(CKD) 7 (>60 ml/min/1.73 sqM); Potassium 4.6 mmol/L (3.5-5.1); Sodium 138 mmol/L (137-145)
[2024-04-07] MEDS ORDERED: ARTIFICIAL TEARS-HYPROMELLOSE DROPS 15 ML BTL BOTH EYES PRN (04:27)
[2024-04-07] MEDS ORDERED: Phenol 1.4% Sore Throat Spray Bottle MUCOUS MEM PRN (04:27)
[2024-04-07] MEDS ORDERED: IPRATROPIUM-ALBUTEROL 3 ML NEB INHALATION PRN (04:27)
[2024-04-07] MEDS ORDERED: ALBUTEROL NEBULIZED 2.5 MG/3 ML INHALATION PRN (04:27)
[2024-04-07] MEDS ORDERED: methocarbamoL 500 MG TAB PO PRN ×2 (04:27→05:00)
[2024-04-07] MEDS: APIXABAN 5 MG TAB PO SCH ×2 (04:57→07:55)
[2024-04-07] MEDS: METOPROLOL TARTRATE 25 MG TAB PO SCH ×2 (04:57→16:14)
[2024-04-07] MEDS: AMIODARONE 100 MG TAB PO SCH (05:18)
[2024-04-07 05:34] LABS: Glucose,Whole Blood 123 mg/dL (70-110)
[2024-04-07] MEDS: DILTIAZEM 125 MG in SODIUM CHLORIDE 0.9% 100 ML IV SCH (06:57)
[2024-04-07] MEDS ORDERED: AMIODARONE 100 MG TAB PO SCH ×2 (08:00→09:00)
--- NOTE | 2024-04-07 08:48 | P.CONS ---
History of Present Illness - Reason for Consult Consult date: 04/06/24 UTI, sepsis Requesting physician: J Luis Epstein - Chief Complaint Fever and low blood pressure x 1 day - History of Present Illness Patient is a 78-year-old male past medical history significant for hypertension hyperlipidemia reflux atrial fibrillation end-stage renal disease on dialysis through the left arm AV fistula patient was brought into the hospital for evaluation of fever overnight and apparently the patient did have low blood pressure while undergoing his dialysis patient did received bolus of fluid hydralazine and subsequently patient has been sent to the hospital for further evaluation patient on presentation to the hospital did have a temper ature of 99.8 subsequently spiked a fever of 101.2 F patient was tachycardic and mildly hypertensive no significant hypoxemia or need for supplemental oxygen patient did have white count of 18.1 BUN and creatinine has been elevated electrolytes are normal liver enzymes are normal urine is positive influenza RSV COVID testing is negative patient did have a blood and urine culture drawn as the patient still make some urine he did have a chest x-ray no acute cardiopulmonary disease process infectious disease was consulted for further management patient denies having any headache or URI symptoms no chest pain shortness of breath or cough denies any abdominal pain no nausea vomiting and no diarrhea or constipation still makes some urine but denies significant burning or difficulty urination Review of Systems Positive point and negatives has been mentioned in the HPI, complete review of systems was performed and all other systems are negative Past Medical History Past Medical History: Atrial Fibrillation, Dialysis, GERD/Reflux, Hyperlipidemia, Hypertension Additional Past Medical History / Comment(s): BPH, spinal arthritis, severe neuropathy of feet bilaterally, TBI History of Any Multi-Drug Resistant Organisms: None Reported Past Surgical History: Heart Catheterization, Hernia Repair Additional Past Surgical History / Comment(s): AV fistula placed Past Anesthesia/Blood Transfusion Reactions: No Reported Reaction Past Psychological History: No Psychological Hx Reported Smoking Status: Current every day smoker Past Alcohol Use History: None Reported Past Drug Use History: None Reported Medications and Allergies Home Medications Medication Instructions Recorded Confirmed Type Cyanocobalamin [Vitamin B-12] 500 mcg PO DAILY@0800 07/24/23 04/06/24 History Omeprazole [PriLOSEC] 20 mg PO BID@0800,199907/24/23 04/06/24 History Patiromer Calcium Sorbitex 1 packet PO SUTUTHSA@0800 07/24/23 04/06/24 History [Veltassa] Sodium Bicarbonate Tab 650 mg PO BID@08,199907/24/23 04/06/24 History Tamsulosin [Flomax] 0.4 mg PO HS@199907/24/23 04/06/24 History Nitroglycerin Sl Tabs [Nitrostat] 0.4 mg SUBLINGUAL Q5M PRN tab 07/28/23 04/06/24 Rx Acetaminophen [Tylenol Extra 1,000 mg PO TID PRN 03/26/24 04/06/24 History Strength] Albuterol Sulfate [Albuterol 1 puff PO RT-QID PRN 03/26/24 04/06/24 History Sulfate Hfa] Apixaban [Eliquis] 5 mg PO BID@08,199903/26/24 04/06/24 History Budesonide/Formoterol Fumarate 1 puff INHALATION RT-BID@799,199903/26/24 04/06/24 History [Breyna 160-4.5 Mcg Inhaler] Buprenorphine [Butrans 10 MCG/HOUR] 1 patch TRANSDERM SA@79903/26/24 04/06/24 History Diclofenac Sodium [Diclofenac 1 applic TOPICAL QID PRN 03/26/24 04/06/24 History Sodium 1%] Gabapentin [Neurontin] 200 mg PO TID@0800,1700,199903/26/24 04/06/24 History Loperamide HCl [Loperamide] 2 mg PO QID PRN 03/26/24 04/06/24 History Loratadine [Claritin] 10 mg PO DAILY@79903/26/24 04/06/24 History Melatonin 3 mg PO HS PRN 03/26/24 04/06/24 History Menthol [Biofreeze] 1 applic TOPICAL BID PRN 03/26/24 04/06/24 History Phenol 1.4% [place] [Sore Throat 1 applic MUCOUS MEM Q2H PRN 03/26/24 04/06/24 History [place] (Chloraseptic)] Sennosides [Senokot] 17.2 mg PO DAILY@0800 03/26/24 04/06/24 History methocarbamoL [Robaxin] 500 mg PO HS@199903/26/24 04/06/24 History methocarbamoL [Robaxin] 500 mg PO TID PRN 03/26/24 04/06/24 History Carboxymethylcellulos/Glycerin 1 - 2 drop BOTH EYES TID PRN 04/06/24 04/06/24 History [Refresh Relieva 0.5-0.9% Drop] Cinacalcet HCl [Sensipar] 90 mg PO MOWEFR 04/06/24 04/06/24 History Ipratropium-Albuterol Nebulize 3 ml INHALATION RT-BID PRN 04/06/24 04/06/24 History [Duoneb 0.5 mg-3 mg/3 ml Soln] Amiodarone [Cordarone] 200 mg PO BID 30 Days #60 tab 04/10/24 Rx Atorvastatin [Lipitor] 20 mg PO HS 30 Days #30 tab 04/10/24 Rx Metoprolol Tartrate [Lopressor] 25 mg PO TID 30 Days #90 tab 04/10/24 Rx Midodrine [ProAmatine] 5 mg PO AC-TID 30 Days #90 tab 04/10/24 Rx cefuroxime axetiL [Ceftin] 500 mg PO DAILY #14 tab 04/10/24 Rx Allergies Allergy/AdvReac Type Severity Reaction Status Date / Time No Known Allergies Allergy Verified 04/05/24 23:42 Physical Exam Vitals: Vital Signs Temp Pulse Resp BP Pulse Ox 04/06/24 10:00 100.0 F H 86 20 116/65 96 04/06/24 09:00 100.0 F H 85 18 110/60 96 04/06/24 08:00 100.8 F H 74 20 111/62 96 04/06/24 07:00 101.2 F H 76 20 115/62 96 04/06/24 06:34 100.1 F H 82 20 113/62 97 04/06/24 05:00 64 18 103/67 95 04/06/24 04:00 69 18 102/58 95 04/06/24 03:00 73 18 97/63 96 04/06/24 02:00 72 18 99/62 96 04/06/24 01:30 71 18 105/60 98 04/06/24 01:10 68 18 92/66 95 04/06/24 01:00 68 18 97/62 96 04/06/24 00:30 67 20 91/57 98 04/06/24 00:12 65 18 80/51 95 04/06/24 00:00 76 18 70/50 95 04/05/24 23:55 78 18 71/46 95 04/05/24 23:53 71 18 71/51 95 04/05/24 23:38 99.8 F H 80 18 68/38 96 Intake and Output 04/05/24 04/06/24 04/06/24 22:59 06:59 14:59 Other: Weight 74.843 kg GENERAL DESCRIPTION: Elderly male lying in bed, no distress. No tachypnea or accessory muscle of respiration use. HEENT: Shows Pallor , no scleral icterus. Oral mucous membrane is dry. NECK: Trachea central, no thyromegaly. LUNGS: Unlabored breathing. Clear to auscultation anteriorly. No wheeze or crackle. HEART: S1, S2, regular rate and rhythm. No loud murmur ABDOMEN: Soft, no tenderness , EXTREMITIES: No edema of feet. SKIN: No rash, no masses palpable. NEUROLOGICAL: The patient is awake, alert, oriented x3, mood and affect normal. Results CBC & Chem 7: 04/09/24 06:42 04/09/24 06:42 Labs: Abnormal Lab Results - Last 24 Hours (Table) 04/06/24 04/06/24 04/06/24 Range/Units 00:00 00:00 00:00 WBC 18.1 H (3.8-10.6) k/uL RBC 4.06 L (4.30-5.90) m/uL Hgb 12.9 L (13.0-17.5) gm/dL Hct 38.4 L (39.0-53.0) % Neutrophils # 16.7 H (1.3-7.7) k/uL Lymphocytes # 0.5 L (1.0-4.8) k/uL BUN 33 H (9-20) mg/dL Creatinine 5.08 H (0.66-1.25) mg/dL Glucose 106 H (74-99) mg/dL Plasma Lactic Acid Jason 3.1 H* (0.7-2.0) mmol/L Procalcitonin (0.02-0.50) ng/mL Urine Protein (Negative) Urine Blood (Negative) Ur Leukocyte Esterase (Negative) Urine RBC (0-5) /hpf Urine WBC (0-5) /hpf Amorphous Sediment (None) /hpf Urine Bacteria (None) /hpf Urine Yeast (Budding) (None) /hpf 04/06/24 04/06/24 04/06/24 Range/Units 00:00 01:49 04:20 WBC (3.8-10.6) k/uL RBC (4.30-5.90) m/uL Hgb (13.0-17.5) gm/dL Hct (39.0-53.0) % Neutrophils # (1.3-7.7) k/uL Lymphocytes # (1.0-4.8) k/uL BUN (9-20) mg/dL Creatinine (0.66-1.25) mg/dL Glucose (74-99) mg/dL Plasma Lactic Acid Jason 2.1 H* (0.7-2.0) mmol/L Procalcitonin 2.69 H (0.02-0.50) ng/mL Urine Protein 3+ H (Negative) Urine Blood Moderate H (Negative) Ur Leukocyte Esterase Large H (Negative) Urine RBC 114 H (0-5) /hpf Urine WBC >182 H (0-5) /hpf Amorphous Sediment Rare H (None) /hpf Urine Bacteria Moderate H (None) /hpf Urine Yeast (Budding) Many H (None) /hpf Assessment and Plan (1) Sepsis Status: Acute Code(s): A41.9 - SEPSIS, UNSPECIFIED ORGANISM SNOMED Code(s): 66985301 (2) UTI (urinary tract infection) Status: Acute Code(s): N39.0 - URINARY TRACT INFECTION, SITE NOT SPECIFIED SNOMED Code(s): 07412097 Plan: 1patient was in the hospital with sepsis in this patient who did have fever tachycardia elevated white count source possible urinary as the patient will still make some urine with no other obvious clinical focus of infection patient lungs clear to auscultation chest x-ray was negative abdominal soft. 2patient is appropriately covered with the vancomycin and Rocephin while waiting for the cultures to be finalized. 3May need to check a CT of abdominal pelvis depending upon cultures and clinical response. We will follow on clinical condition and cultures to further adjust medication if needed Thank you for this consultation we will follow the patient along with you Dictation was produced using dragon dictation software. please excuse any grammatical, word or spelling errors. Time with Patient: Greater than 30
[2024-04-07 09:05] LABS: HCT 34.2 % (39.6-50.0); HGB 10.8 g/dL (13.0-17.0); MCH 30.9 pg (27.0-32.0); MCHC 31.6 g/dL (32.0-37.0); Mean Platelet Volume 10.7 FL (9.5-12.2); NRBC Per 100 WBC 0 X 10*3/uL (0.00-0.01); Platelet Count 120 X 10*3/uL (140-440); RBC 3.49 X 10*6/uL (4.40-5.60); RDW 15.4 % (11.5-14.5)
--- NOTE | 2024-04-07 09:22 | P.CRDCN ---
History of Present Illness History of present illness: HISTORY OF PRESENT ILLNESS: This is a 68-year-old male with a past medical history significant for atrial fibrillation/flutter, hypertension, hyperlipidemia, and end-stage renal disease on hemodialysis. Patient follows in the office with Dr. Blandon. We have been asked to see the patient in consultation for A-fib with RVR. Patient examined at the bedside. Patient states he had dialysis on Monday which was uneventful. However, he was brought to the hospital via EMS. He was found to be hypotensive with a pressure in the 60s and febrile with a fever of 101. Patient believes he has been running a low-grade fever at home. Patient was also found to be in A- fib with RVR and was started on IV Cardizem which is currently infusing at 5 milligrams an hour. He remains in atrial fibrillation with heart rate around 150. Patient currently denies any chest pain or pressure. He denies any shortness of breath. Denies any dizziness or lightheadedness. Denies palpitations. He remains hypotensive with a pressure in the 80s. It is also noted that the patient resides at [facility]. Additionally it is noted that the patient recently underwent TONEY and cardioversion on 03/25/[address] Dent. TONEY revealed tricuspid aortic valve with normal function with trace aortic regurgitation, mild mitral regurgitation, normal tricuspid valve, PFO with positive bubble study, left atrial appendage was free of clot, EF 50 to 55%. The patient was cardioverted x 1 with 200 J and converted to sinus mechanism. Patient did have a significant sinus pause and then developed bradycardia with heart rate in the 20s and 30s and required external pacing, atropine, and epinephrine. His heart rate did increase with weaning of sedation. DIAGNOSTICS: - EKG reveals A-fib with RVR - Chest xray negative for acute process - Laboratory data: WBC 24.1. Hemoglobin 10.8. Platelet count 120. Sodium 138. Potassium 4.6. BUN 57. Creatinine 7.44. Magnesium 1.7. Procalcitonin 44. - Current home cardiac medications include metoprolol tartrate 25 mg twice a day, Lipitor 10 mg at night, Eliquis 5 mg twice a day, amiodarone 100 mg daily - Most recent echocardiogram obtained in July 2023 revealed ejection fraction 60 to 65%, mild AI, trace TR, mild MR -Patient underwent Lexiscan stress test in July 2023 revealing matched defect involving apical lateral myocardium with no definite reversible area of ischemia REVIEW OF SYSTEMS: At the time of my exam: CONSTITUTIONAL: Denies fever or chills. HEENT: Denies blurred vision, vision changes, or eye pain. Denies hemoptysis CARDIOVASCULAR: Denies chest pain. Denies orthopnea. Denies PND. Denies palpitations RESPIRATORY: Denies shortness of breath. GASTROINTESTINAL: Denies abdominal pain. Denies nausea or vomiting. HEMATOLOGIC: Denies bleeding disorders. GENITOURINARY: Denies any blood in urine. SKIN: Denies pruitis. Denies rash. PHYSICAL EXAM: VITAL SIGNS: Reviewed. GENERAL: Well-developed in no acute distress. HEENT: Head is normocephalic. Pupils are equal, round. Sclerae anicteric. Mucous membranes of the mouth are moist. Neck supple. No JVD or thyromegaly LUNGS: Respirations even and unlabored. Lungs with mild expiratory wheezing HEART: Tachycardic. Irregular rate and rhythm. S1 and S2 heard. ABDOMEN: Soft. Nondistended. Nontender. EXTREMITIES: Normal range of motion. No clubbing or cyanosis. Peripheral p ulses intact. No lower extremity edema NEUROLOGIC: Awake and alert. Oriented x 3. ASSESSMENT: Sepsis Bacteremia, blood cultures positive for gram-negative bacilli Urinary tract infection Paroxysmal atrial fibrillation with RVR Hypotension History of atrial flutter with TONEY and cardioversion, 03/25/2024 End-stage renal disease on hemodialysis Normal coronary arteries, per cardiac catheterization in 2019 performed at [facility] in [place] Hypertension Hyperlipidemia Known PFO Nicotine dependence PLAN: Continue IV Cardizem at 5 mg an hour. Unable to increase infusion due to hypotension Begin IV amiodarone bolus and drip per protocol Discontinue oral amiodarone Begin midodrine 5 mg TID Increase metoprolol to tartrate to 25 mg 3 times daily Continue telemetry monitoring Further recommendations pending patient course Nurse practitioner note has been reviewed by physician. Signing provider agrees with the documented findings, assessment, and plan of care documented by [employer]ING MACHINE TENDER as a scribe. Past Medical History Past Medical History: Atrial Fibrillation, Dialysis, GERD/Reflux, Hyperlipidemia, Hypertension Additional Past Medical History / Comment(s): BPH, spinal arthritis, severe neuropathy of feet bilaterally, TBI History of Any Multi-Drug Resistant Organisms: None Reported Past Surgical History: Heart Catheterization, Hernia Repair Additional Past Surgical History / Comment(s): AV fistula placed Past Anesthesia/Blood Transfusion Reactions: No Reported Reaction Past Psychological History: No Psychological Hx Reported Smoking Status: Current every day smoker Past Alcohol Use History: None Reported Past Drug Use History: None Reported Medications and Allergies Home Medications Medication Instructions Recorded Confirmed Type Atorvastatin [Lipitor] 10 mg PO HS@199907/24/23 04/06/24 History Cyanocobalamin [Vitamin B-12] 500 mcg PO DAILY@0800 07/24/23 04/06/24 History Omeprazole [PriLOSEC] 20 mg PO BID@799,199907/24/23 04/06/24 History Patiromer Calcium Sorbitex 1 packet PO SUTUTHSA@79907/24/23 04/06/24 History [Veltassa] Sevelamer Carbonate 2,400 mg PO AC-TID@08,12,1730 07/24/23 04/06/24 History Sodium Bicarbonate Tab 650 mg PO BID@08,199907/24/23 04/06/24 History Tamsulosin [Flomax] 0.4 mg PO HS@199907/24/23 04/06/24 History Nitroglycerin Sl Tabs [Nitrostat] 0.4 mg SUBLINGUAL Q5M PRN tab 07/28/23 04/06/24 Rx Amiodarone [Cordarone] 100 mg PO DAILY@0800 09/13/23 04/06/24 History Acetaminophen [Tylenol Extra 1,000 mg PO TID PRN 03/26/24 04/06/24 History Strength] Albuterol Sulfate [Albuterol 1 puff PO RT-QID PRN 03/26/24 04/06/24 History Sulfate Hfa] Apixaban [Eliquis] 5 mg PO BID@08,199903/26/24 04/06/24 History Budesonide/Formoterol Fumarate 1 puff INHALATION RT-BID@799,199903/26/24 04/06/24 History [Breyna 160-4.5 Mcg Inhaler] Buprenorphine [Butrans 10 MCG/HOUR] 1 patch TRANSDERM SA@79903/26/24 04/06/24 History Diclofenac Sodium [Diclofenac 1 applic TOPICAL QID PRN 03/26/24 04/06/24 History Sodium 1%] Gabapentin [Neurontin] 200 mg PO TID@0800,170,199903/26/24 04/06/24 History Loperamide HCl [Loperamide] 2 mg PO QID PRN 03/26/24 04/06/24 History Loratadine [Claritin] 10 mg PO DAILY@0800 03/26/24 04/06/24 History Melatonin 3 mg PO HS PRN 03/26/24 04/06/24 History Menthol [Biofreeze] 1 applic TOPICAL BID PRN 03/26/24 04/06/24 History Metoprolol Tartrate [Lopressor] 25 mg PO BID@0800,199903/26/24 04/06/24 History Phenol 1.4% Almyra [Sore Throat 1 applic MUCOUS MEM Q2H PRN 03/26/24 04/06/24 History Almyra (Chloraseptic)] Sennosides [Senokot] 17.2 mg PO DAILY@0800 03/26/24 04/06/24 History Sevelamer Carbonate 800 mg PO HS@199903/26/24 04/06/24 History methocarbamoL [Robaxin] 500 mg PO HS@199903/26/24 04/06/24 History methocarbamoL [Robaxin] 500 mg PO TID PRN 03/26/24 04/06/24 History Carboxymethylcellulos/Glycerin 1 - 2 drop BOTH EYES TID PRN 04/06/24 04/06/24 History [Refresh Relieva 0.5-0.9% Drop] Cinacalcet HCl [Sensipar] 90 mg PO MOWEFR 04/06/24 04/06/24 History Ipratropium-Albuterol Nebulize 3 ml INHALATION RT-BID PRN 04/06/24 04/06/24 History [Duoneb 0.5 mg-3 mg/3 ml Soln] Allergies Allergy/AdvReac Type Severity Reaction Status Date / Time No Known Allergies Allergy Verified 04/05/24 23:42 Physical Exam Vitals: Vital Signs Temp Pulse Pulse Resp BP BP Pulse Ox 04/07/24 08:36 134 H 16 102/64 96 04/07/24 07:59 99.0 F 114 H 16 91/67 97 04/07/24 06:57 18 91/60 97 04/07/24 05:22 99.8 F H 04/07/24 03:55 101.7 F H 04/07/24 00:22 99.1 F 85 17 109/61 94 L 04/06/24 23:35 98.8 F 16 103/62 94 L 04/06/24 23:04 100.7 F H 90 16 105/61 94 L 04/06/24 22:39 87 16 105/58 95 04/06/24 21:36 100.5 F H 04/06/24 20:01 90 16 114/90 04/06/24 17:51 98.2 F 99 20 122/69 97 04/06/24 13:49 100.5 F H 04/06/24 12:00 101.8 F H 96 20 96/64 98 04/06/24 11:00 84 20 118/65 96 04/06/24 10:00 100.0 F H 86 20 116/65 96 Intake and Output 04/06/24 04/07/24 04/07/24 22:59 06:59 14:59 Intake Total 9.667 Balance 9.667 Intake: Intake, IV Titration 9.667 Amount Diltiazem 125 mg In 9.667 Sodium Chloride 0.9% 100 ml @ 5 MG/HR 5 mls/hr IV .Q24H PENDING SALE TO [facility] Rx#:[id number] Other: Voiding Method Toilet Weight 74.843 kg Results 04/07/24 03:18 04/07/24 03:18 CBC 04/07/24 Range/Units 03:18 WBC 24.10 H (4.50-10.00) X 10*3/uL RBC 3.49 L (4.40-5.60) X 10*6/uL Hgb 10.8 L (13.0-17.0) g/dL Hct 34.2 L (39.6-50.0) % Plt Count 120 L (140-440) X 10*3/uL Comprehensive Metabolic Panel 04/07/24 Range/Units 03:18 Sodium 138 (137-145) mmol/L Potassium 4.6 (3.5-5.1) mmol/L Chloride 106 (98-107) mmol/L Carbon Dioxide 22 (22-30) mmol/L BUN 57 H (9-20) mg/dL Creatinine 7.44 H* (0.66-1.25) mg/dL Glucose 97 (74-99) mg/dL Calcium 8.4 (8.4-10.2) mg/dL Current Medications Generic Name Dose Route Start Last Admin Trade Name Freq PRN Reason Stop Dose Admin Acetaminophen 650 mg 04/06/24 06:33 04/07/24 03:53 Acetaminophen Tab 325 Mg Tab PO 650 mg Q6HR PRN Administration Fever and/ or Pain Albuterol Sulfate 2.5 mg 04/07/24 04:27 Albuterol Nebulized 2.5 Mg/3 Ml INHALATION RT-QID PRN Wheezing Albuterol/Ipratropium 3 ml 04/07/24 04:27 Ipratropium-Albuterol 3 Ml Neb INHALATION RT-BID PRN Shortness Of Breath Apixaban 5 mg 04/07/24 09:00 04/07/24 07:55 Apixaban 5 Mg Tab PO Not Given BID [facility]END[facility] Protocol Artificial Tears 1 drops 04/07/24 04:27 Artificial Tears-Hypromellose Drops 15 Ml Btl BOTH EYES TID PRN Dry Eye(s) Atorvastatin Calcium 20 mg 04/07/24 21:00 Atorvastatin 20 Mg Tab PO HS PENDING S[facility] Budesonide/Formoterol Fumarate 1 puff 04/07/24 08:00 Symbicort 160-4.5 Mcg Inhaler INHALATION RT-BID@0800,2000 PENDING SALE TO [facility] Cinacalcet 90 mg 04/08/24 09:00 Cinacalcet 30 Mg Tab PO MOWEFR PENDING SALE TO [facility] Cyanocobalamin 500 mcg 04/07/24 09:00 Cyanocobalamin 500 Mcg Tab PO DAILY ASMITA Gabapentin 100 mg 04/07/24 09:00 Gabapentin 100 Mg Cap PO TID ASMITA Ceftriaxone Sodium 2 gm/ 50 mls @ 100 mls/hr 04/06/24 21:30 04/06/24 22:37 Sodium Chloride IVPB 100 mls/hr HS ASMITA Administration Diltiazem HCl 125 mg/ Sodium 125 mls @ 5 mls/hr 04/07/24 06:00 04/07/24 08:43 Chloride IV 5 mg/hr .Q24H ASMITA 5 mls/hr Infusion 5 MG/HR Amiodarone HCl 360 mg/ 200 mls @ 33.333 mls/hr 04/07/24 09:10 Dextrose/Water IV 04/07/24 15:09 .Q6H ONE Protocol 1 MG/MIN Amiodarone HCl 450 mg/ 250 mls @ 16.667 mls/hr 04/07/24 15:10 Dextrose/Water IV 04/08/24 09:09 .Q15H [facility] Protocol 0.5 MG/MIN Sodium Phosphate 10 mmol/ 250 mls @ 125 mls/hr 04/07/24 10:00 Sodium Chloride IVPB 04/07/24 11:59 ONCE ONE Iopamidol 30 ml 04/07/24 08:49 Iopamidol Contrast (Oral Use) Vial PO 04/08/24 08:[address] Scan Loratadine 10 mg 04/07/24 09:00 Loratadine 10 Mg Tab PO DAILY [facility] Methocarbamol 500 mg 04/07/24 21:00 Methocarbamol 500 Mg Tab PO HS PENDING SALE [facility] Methocarbamol 500 mg 04/07/24 05:00 Methocarbamol 500 Mg Tab PO BID@0900,1600 PRN Muscle Pain Metoprolol Tartrate 25 mg 04/07/24 16:00 Metoprolol Tartrate 25 Mg Tab PO TID PENDING S[facility] Metronidazole 500 mg 04/07/24 09:00 Metronidazole 500 Mg Tab PO TID [facility] Protocol Midodrine 5 mg 04/07/24 09:00 Midodrine 5 Mg Tab PO AC-TID [facility]ENDING S[facility] Non-Formulary Medication 1 patch 04/13/24 09:00 Buprenorphine [Butrans 10 Mcg/Hour] TRANSDERM [facility] Phenol/Menthol 1 applic 04/07/24 04:27 Phenol 1.4% Sore Throat Almyra Bottle MUCOUS MEM Q2H PRN Sore Throat Senna 17.2 mg 04/07/24 09:00 Sennosides 8.6 Mg Tab PO DAILY [facility]END[facility] Sodium Bicarbonate 650 mg 04/07/24 09:00 Sodium Bicarbonate Tab 650 Mg Tab PO BID PENDING S[facility] Tamsulosin HCl 0.4 mg 04/07/24 21:00 Tamsulosin 0.4 Mg Cap.Er.24h PO [facility] Intake and Output 04/06/24 04/07/24 04/07/24 22:59 06:59 14:59 Intake Total 9.667 Balance 9.667 Intake: Intake, IV Titration 9.667 Amount Diltiazem 125 mg In 9.667 Sodium Chloride 0.9% 100 ml @ 5 MG/HR 5 mls/hr IV .Q24H PEND[facility] Rx#:[id number] Other: Voiding Method Toilet Weight 74.843 kg 04/07/24 03:18 04/07/24 03:18
--- NOTE | 2024-04-07 09:41 | P.PN ---
Subjective Patient is seen in follow-up for end-stage renal disease. He is maintained on hemodialysis on Monday schedule. In A-fib. On Cardizem drip. Also being started on amiodarone drip. Blood cultures positive for gram- negative bacilli. Patient denies any active complaints. Vital signs are stable. General: No audible rhonchi or wheezes. HEENT: Head exam is unremarkable. Cut the LUNGS: No audible rhonchi or wheezes. HEART: Rate and Rhythm are regular. ABDOMEN: Nontender. EXTREMITITES: No edema. Objective - Vital Signs Vital signs: Vital Signs Temp 99.0 F 04/07/24 07:59 Pulse 134 H 04/07/24 08:36 Resp 16 04/07/24 08:36 BP 102/64 04/07/24 08:36 Pulse Ox 96 04/07/24 08:36 FiO2 Intake & Output 04/06/24 04/07/24 04/07/24 18:59 06:59 18:59 Intake Total 9.667 Balance 9.667 Weight 74.843 kg Intake: Intake, IV Titration 9.667 Amount Diltiazem 125 mg In 9.667 Sodium Chloride 0.9% 100 ml @ 5 MG/HR 5 mls/hr IV .Q24H [facility] Rx#:[id number] Other: Voiding Method Toilet - Labs CBC & Chem 7: 04/07/24 03:18 04/07/24 03:18 Labs: Abnormal Lab Results - Last 24 Hours (Table) 04/06/24 04/06/24 04/06/24 Range/Units 00:00 00:00 13:55 WBC (4.50-10.00) X 10*3/uL RBC (4.40-5.60) X 10*6/uL Hgb (13.0-17.0) g/dL Hct (39.6-50.0) % MCV (80.0-97.0) FL MCHC (32.0-37.0) g/dL RDW (11.5-14.5) % Plt Count (140-440) X 10*3/uL BUN (9-20) mg/dL Creatinine (0.66-1.25) mg/dL POC Glucose (mg/dL) (70-110) mg/dL Phosphorus 0.6 A* (2.4-5.1) mg/dL Procalcitonin 2.69 H 44.00 H (0.02-0.50) ng/mL 04/06/24 04/07/24 04/07/24 Range/Units 13:55 03:18 03:18 WBC 24.10 H (4.50-10.00) X 10*3/uL RBC 3.49 L (4.40-5.60) X 10*6/uL Hgb 10.8 L (13.0-17.0) g/dL Hct 34.2 L (39.6-50.0) % MCV 98.0 H (80.0-97.0) FL MCHC 31.6 L (32.0-37.0) g/dL RDW 15.4 H (11.5-14.5) % Plt Count 120 L (140-440) X 10*3/uL BUN 57 H (9-20) mg/dL Creatinine 7.44 H* (0.66-1.25) mg/dL POC Glucose (mg/dL) (70-110) mg/dL Phosphorus 1.6 L (2.4-5.1) mg/dL Procalcitonin (0.02-0.50) ng/mL 04/07/24 Range/Units 05:32 WBC (4.50-10.00) X 10*3/uL RBC (4.40-5.60) X 10*6/uL Hgb (13.0-17.0) g/dL Hct (39.6-50.0) % MCV (80.0-97.0) FL MCHC (32.0-37.0) g/dL RDW (11.5-14.5) % Plt Count (140-440) X 10*3/uL BUN (9-20) mg/dL Creatinine (0.66-1.25) mg/dL POC Glucose (mg/dL) 123 H (70-110) mg/dL Phosphorus (2.4-5.1) mg/dL Procalcitonin (0.02-0.50) ng/mL Microbiology - Last 24 Hours (Table) 04/06/24 03:22 Urine Culture - Final Urine,Clean Catch 04/06/24 00:00 Blood Culture Gram Stain - Preliminary Blood Blood Culture - Preliminary Molecular ID 04/06/24 00:16 Blood Culture Gram Stain - Preliminary Blood Assessment and Plan Plan: Assessment: 1. End-stage renal disease maintained on hemodialysis on Monday schedule. Has a left upper extremity AV fistula. 2. Severe sepsis maintained on IV antibiotics. Blood cultures positive for gram-negative bacilli. 3. Hypertension with chronic kidney disease. Blood pressure currently on the lower side. 4. Chronic kidney disease mineral bone disease. 5. A-fib with RVR maintained on Cardizem drip. Amiodarone drip also being started. 6. Hypophosphatemia due to phosphate binders and poor intake. Plan: Hemodialysis Monday. Follow-up cultures. Follow-up CT results. Stop Renvela. Patient will be given IV sodium phosphate today.
[2024-04-07] MEDS: SYMBICORT 160-4.5 MCG INHALER INHALATION SCH (09:46)
[2024-04-07] MEDS: DEXTROSE 5% IN WATER 100 ML with AMIODARONE 150 MG IV ONE (10:01)
[2024-04-07] MEDS: AMIODARONE 360 MG in DEXTROSE 5% IN WATER 200 ML IV ONE (10:20)
[2024-04-07] MEDS: SENNOSIDES 8.6 MG TAB PO SCH (10:33)
[2024-04-07] MEDS: SODIUM BICARBONATE TAB 650 MG TAB PO SCH (10:33)
[2024-04-07] MEDS: MIDODRINE 5 MG TAB PO SCH (10:33)
[2024-04-07] MEDS: LORATADINE 10 MG TAB PO SCH (10:33)
[2024-04-07] MEDS: GABAPENTIN 100 MG CAP PO SCH (10:34)
[2024-04-07] MEDS: CYANOCOBALAMIN 500 MCG TAB PO SCH (10:34)
[2024-04-07] MEDS: metroNIDAZOLE 500 MG TAB PO SCH (10:44)
[2024-04-07] MEDS: SODIUM PHOSPHATE 10 MMOL in SODIUM CHLORIDE 0.9% 250 ML IVPB ONE (11:05)
[2024-04-07 11:23] LABS: Glucose,Whole Blood 138 mg/dL (70-110)
--- NOTE | 2024-04-07 11:30 | P.PN ---
Subjective 48-year-old male was sent in from dialysis unit patient had leukocytosis as well patient uses abnormal although patient does not have any UTI symptoms respiratory within normal limits. Patient is Monday dialysis. Patient is also on anticoagulation with Eliquis for atrial fibrillation. Patient denied any body aches denied any diarrhea nausea vomiting abdominal pain. April 07, 2024 Patient went into atrial fibrillation is requiring IV Cardizem and IV amiodarone at this time patient still is tachycardic patient's blood cultures are positive for gram-negative bacilli patient white count went up to 25,000 because of which metronidazole was added to the Rocephin regimen patient is also undergoing CT of the abdomen pelvis to rule out any intra-abdominal source of infection. REVIEW OF SYSTEMS: All other systems are negative except those mentioned in the HPI PHYSICAL EXAMINATION: GENERAL: The patient is alert and oriented x3, not in any acute distress. Well developed, well nourished. HEENT: Pupils are round and equally reacting to light. EOMI. No scleral icterus. No conjunctival pallor. Normocephalic, atraumatic. No pharyngeal erythema. No thyromegaly. CARDIOVASCULAR: S1 and S2 present. No murmurs, rubs, or gallops. PULMONARY: Chest is clear to auscultation, no wheezing or crackles. ABDOMEN: Soft, nontender, nondistended, normoactive bowel sounds. No palpable organomegaly. MUSCULOSKELETAL: No joint swelling or deformity. EXTREMITIES: No cyanosis, clubbing, or pedal edema. NEUROLOGICAL: Gross neurological examination did not reveal any focal deficits. SKIN: No rashes. Assessment and plan -Sepsis possibly of urinary tract infection blood cultures are positive for gram-negative bacilli repeat blood cultures will be obtained patient is on Rocephin metronidazole was added CT of the abdomen pelvis as mentioned above -Atrial fibrillation paroxysmal with rapid ventricular rate patient is on IV Cardizem IV amiodarone discontinued on Eliquis -End-stage renal disease hemodialysis dependent: Nephrology is seeing the patient -Coronary artery disease -Hypertension -Hyperlipidemia -History of PFO -Severe peripheral neuropathy for which patient is on gabapentin -Benign prostatic atrophy -COPD without any acute exacerbation patient has mild wheezing for which we will use a inhaled steroids -Continue to: Use: Counseling was provided with patient is not willing to quit smoking DVT prophylaxis: On Eliquis Objective - Vital Signs Vital signs: Vital Signs Temp 98.8 F 04/07/24 10:00 Pulse 134 H 04/07/24 10:55 Resp 16 04/07/24 10:55 BP 93/62 04/07/24 10:55 Pulse Ox 96 04/07/24 10:55 FiO2 Intake & Output 04/06/24 04/07/24 04/07/24 18:59 06:59 18:59 Intake Total 9.667 Balance 9.667 Weight 74.843 kg Intake: Intake, IV Titration 9.667 Amount Diltiazem 125 mg In 9.667 Sodium Chloride 0.9% 100 ml @ 5 MG/HR 5 mls/hr IV .Q24H [facility] Rx#:[id number] Other: Voiding Method Toilet - Labs CBC & Chem 7: 04/07/24 03:18 04/07/24 03:18 Labs: Abnormal Lab Results - Last 24 Hours (Table) 04/06/24 04/06/24 04/06/24 Range/Units 00:00 13:55 13:55 WBC (4.50-10.00) X 10*3/uL RBC (4.40-5.60) X 10*6/uL Hgb (13.0-17.0) g/dL Hct (39.6-50.0) % MCV (80.0-97.0) FL MCHC (32.0-37.0) g/dL RDW (11.5-14.5) % Plt Count (140-440) X 10*3/uL BUN (9-20) mg/dL Creatinine (0.66-1.25) mg/dL POC Glucose (mg/dL) (70-110) mg/dL Phosphorus 0.6 A* 1.6 L (2.4-5.1) mg/dL Procalcitonin 44.00 H (0.02-0.50) ng/mL 04/07/24 04/07/24 04/07/24 Range/Units 03:18 03:18 05:32 WBC 24.10 H (4.50-10.00) X 10*3/uL RBC 3.49 L (4.40-5.60) X 10*6/uL Hgb 10.8 L (13.0-17.0) g/dL Hct 34.2 L (39.6-50.0) % MCV 98.0 H (80.0-97.0) FL MCHC 31.6 L (32.0-37.0) g/dL RDW 15.4 H (11.5-14.5) % Plt Count 120 L (140-440) X 10*3/uL BUN 57 H (9-20) mg/dL Creatinine 7.44 H* (0.66-1.25) mg/dL POC Glucose (mg/dL) 123 H (70-110) mg/dL Phosphorus (2.4-5.1) mg/dL Procalcitonin (0.02-0.50) ng/mL 04/07/24 Range/Units 11:21 WBC (4.50-10.00) X 10*3/uL RBC (4.40-5.60) X 10*6/uL Hgb (13.0-17.0) g/dL Hct (39.6-50.0) % MCV (80.0-97.0) FL MCHC (32.0-37.0) g/dL RDW (11.5-14.5) % Plt Count (140-440) X 10*3/uL BUN (9-20) mg/dL Creatinine (0.66-1.25) mg/dL POC Glucose (mg/dL) 138 H (70-110) mg/dL Phosphorus (2.4-5.1) mg/dL Procalcitonin (0.02-0.50) ng/mL Microbiology - Last 24 Hours (Table) 04/06/24 03:22 Urine Culture - Final Urine,Clean Catch 04/06/24 00:00 Blood Culture Gram Stain - Preliminary Blood Blood Culture - Preliminary Molecular ID 04/06/24 00:16 Blood Culture Gram Stain - Preliminary Blood
--- NOTE | 2024-04-07 13:23 | P.PN ---
Subjective Progress Note Date: 04/07/24 Principal diagnosis: Reason for follow-up is UTI bacteremia Patient is a 78-year-old male past medical history significant for hypertension hyperlipidemia reflux atrial fibrillation end-stage renal disease on dialysis through the left arm AV fistula patient was brought into the hospital for evaluation of fever with initial concern for possible urinary source the patient still makes urine and did have a positive UA blood cultures came back positive with Enterobacteriaceae with no resistant pathogen. On today's evaluation that is 04/07/2024, Patient did have improvement in his fever pattern with a temperature 100.6 F this morning the patient is currently lethargic not a very good historian and is on 2 L nasal cannula oxygen no vomiting or diarrhea has been reported. Patient white count is up to 24,000, procalcitonin is 44 but chest x-ray was negative Objective - Vital Signs Vital signs: Vital Signs Temp 100.6 F H 04/07/24 11:13 Pulse 124 H 04/07/24 11:13 Resp 16 04/07/24 11:13 BP 95/60 04/07/24 11:13 Pulse Ox 95 04/07/24 11:13 FiO2 Intake & Output 04/06/24 04/07/24 04/07/24 18:59 06:59 18:59 Intake Total 9.667 Balance 9.667 Weight 74.843 kg Intake: Intake, IV Titration 9.667 Amount Diltiazem 125 mg In 9.667 Sodium Chloride 0.9% 100 ml @ 5 MG/HR 5 mls/hr IV .Q24H [facility] Rx#:[id number] Other: Voiding Method Toilet - Exam GENERAL DESCRIPTION: An elderly male lying in bed in no distress RESPIRATORY SYSTEM: Unlabored breathing , decreased breath sounds at bases HEART: S1 S2 regular rate and rhythm , ABDOMEN: Soft , no tenderness EXTREMITIES: No edema feet - Labs CBC & Chem 7: 04/07/24 03:18 04/07/24 03:18 Labs: Abnormal Lab Results - Last 24 Hours (Table) 04/06/24 04/06/24 04/06/24 Range/Units 00:00 13:55 13:55 WBC (4.50-10.00) X 10*3/uL RBC (4.40-5.60) X 10*6/uL Hgb (13.0-17.0) g/dL Hct (39.6-50.0) % MCV (80.0-97.0) FL MCHC (32.0-37.0) g/dL RDW (11.5-14.5) % Plt Count (140-440) X 10*3/uL BUN (9-20) mg/dL Creatinine (0.66-1.25) mg/dL POC Glucose (mg/dL) (70-110) mg/dL Phosphorus 0.6 A* 1.6 L (2.4-5.1) mg/dL Procalcitonin 44.00 H (0.02-0.50) ng/mL 04/07/24 04/07/24 04/07/24 Range/Units 03:18 03:18 05:32 WBC 24.10 H (4.50-10.00) X 10*3/uL RBC 3.49 L (4.40-5.60) X 10*6/uL Hgb 10.8 L (13.0-17.0) g/dL Hct 34.2 L (39.6-50.0) % MCV 98.0 H (80.0-97.0) FL MCHC 31.6 L (32.0-37.0) g/dL RDW 15.4 H (11.5-14.5) % Plt Count 120 L (140-440) X 10*3/uL BUN 57 H (9-20) mg/dL Creatinine 7.44 H* (0.66-1.25) mg/dL POC Glucose (mg/dL) 123 H (70-110) mg/dL Phosphorus (2.4-5.1) mg/dL Procalcitonin (0.02-0.50) ng/mL 04/07/24 Range/Units 11:21 WBC (4.50-10.00) X 10*3/uL RBC (4.40-5.60) X 10*6/uL Hgb (13.0-17.0) g/dL Hct (39.6-50.0) % MCV (80.0-97.0) FL MCHC (32.0-37.0) g/dL RDW (11.5-14.5) % Plt Count (140-440) X 10*3/uL BUN (9-20) mg/dL Creatinine (0.66-1.25) mg/dL POC Glucose (mg/dL) 138 H (70-110) mg/dL Phosphorus (2.4-5.1) mg/dL Procalcitonin (0.02-0.50) ng/mL Microbiology - Last 24 Hours (Table) 04/06/24 03:22 Urine Culture - Final Urine,Clean Catch 04/06/24 00:00 Blood Culture Gram Stain - Preliminary Blood Blood Culture - Preliminary Molecular ID 04/06/24 00:16 Blood Culture Gram Stain - Preliminary Blood Assessment and Plan (1) Sepsis Current Visit: Yes Status: Acute Code(s): A41.9 - SEPSIS, UNSPECIFIED ORGANISM SNOMED Code(s): 13480247 Plan: 1patient was in the hospital with sepsis in this patient who did have fever tachycardia elevated white count source possible urinary as the patient will still make some urine with no other obvious clinical focus of infection patient lungs clear to auscultation chest x-ray was negative abdominal soft. 2patient did have a positive blood culture with Enterobacter with no resistant pattern, source questionably urinary versus abdominal 3we will continue with Rocephin dose adjusted to 2 g daily add Flagyl check a CT of abdominal pelvis with oral contrast Dictation was produced using [employer] dictation software. please excuse any grammatical, word or spelling errors. Time with Patient: Less than 30
[2024-04-07] MEDS: IOPAMIDOL CONTRAST (ORAL USE) VIAL PO PRN (14:02)
--- NOTE | 2024-04-07 15:55 | CT ---
EXAMINATION TYPE: CT abdomen pelvis wo con DATE OF EXAM: 04/07/2024 3:41 PM COMPARISON: Not available. CLINICAL INDICATION: Male, 68 years old with history of sepsis , bacteremia; sepsis TECHNIQUE: Axial CT abdomen pelvis wo con;Sagittal and coronal reformats were created on a separate workstation. Oral contrast used: with Oral Contrast CT DLP: 579.6 mGycm, Automated exposure control for dose reduction was used. FINDINGS: LOWER CHEST: Trace bilateral pleural effusions partially visualized with adjacent lower lobe scarring /atelectasis. ABDOMEN LIVER: Unremarkable GALLBLADDER AND BILE DUCTS: Unremarkable. PANCREAS: Unremarkable. SPLEEN: Unremarkable. ADRENAL GLANDS: Unremarkable. KIDNEYS AND URETERS: Bilateral renal parenchymal atrophy and multiple simple cysts. No acute process. PELVIS BLADDER: Wall thickening and adjacent perivesicular stranding. REPRODUCTIVE: Prostate is enlarged in size measuring 6.2 cm in transverse dimension. ABDOMEN & PELVIS STOMACH AND BOWEL: Stomach and duodenum are unremarkable. Scattered diverticula are noted throughout the colon. No evidence of bowel obstruction. PERITONEUM/RETROPERITONEUM: No evidence of pneumoperitoneum or free fluid. VASCULATURE: No evidence of aortic aneurysm. MUSCULOSKELETAL: No acute osseous abnormalities LYMPH NODES: No gross evidence for lymphadenopathy. SOFT TISSUE/ABDOMINAL WALL: Small fat-containing right inguinal hernia. IMPRESSION: 1. Urinary bladder wall thickening and adjacent perivesicular stranding/inflammation. Recommend jaxon elation with urinalysis for cystitis. 2. Prostatomegaly. 3. Trace bilateral pleural effusions partially visualized. 4. Bilateral renal atrophy and cystic changes. 5. Colonic diverticulosis. 6. Fat-containing right inguinal hernia. [facility], , 04/07/2024 3:52 PM
[2024-04-07] MEDS: AMIODARONE 450 MG in DEXTROSE 5% IN WATER 250 ML IV SCH (16:13)
[2024-04-07 16:21] LABS: Glucose,Whole Blood 119 mg/dL (70-110)
[2024-04-07] MEDS ORDERED: ATORVASTATIN 10 MG TAB PO SCH ×2 (20:00→21:00)
[2024-04-07 20:53] LABS: Glucose,Whole Blood 115 mg/dL (70-110)
[2024-04-07] MEDS ORDERED: SEVELAMER 800 MG TAB PO SCH (21:00)
[2024-04-07] MEDS: ATORVASTATIN 20 MG TAB PO SCH (21:21)
[2024-04-07] MEDS: TAMSULOSIN 0.4 MG CAP.ER.24H PO SCH (21:21)
[2024-04-07] MEDS: methocarbamoL 500 MG TAB PO SCH (21:35)
[2024-04-07] MEDS: SEVELAMER 800 MG TAB PO SCH (21:51)
[2024-04-08 06:20] LABS: Glucose,Whole Blood 108 mg/dL (70-110)
[2024-04-08 07:23] LABS: Basophils % (A) 0 %; Eosinophils # (A) 0.3 k/uL (0-0.7); Eosinophils % (A) 2 %; HCT 31.8 % (39.0-53.0); HGB 10.5 gm/dL (13.0-17.5); Lymphocytes # (A) 1.1 k/uL (1.0-4.8); Lymphocytes % (A) 6 %; MCH 31.2 pg (25.0-35.0); MCHC 32.8 g/dL (31.0-37.0); Mean Platelet Volume 9.2; Monocytes # (A) 0.8 k/uL (0-1.0); Monocytes % (A) 4 %; Neutrophils # (A) 15.5 k/uL (1.3-7.7); Neutrophils % (A) 86 %; Platelet Count 128 k/uL (150-450); RBC 3.35 m/uL (4.30-5.90); RDW 14.8 % (11.5-15.5); WBC 18.1 k/uL (3.8-10.6)
[2024-04-08 07:37] LABS: African American GFR (CKD) 7 (>60 ml/min/1.73 sqM); Anion Gap 10 mmol/L; Blood Urea Nitrogen 68 mg/dL (9-20); Calcium 8.6 mg/dL (8.4-10.2); Carbon Dioxide 23 mmol/L (22-30); Chloride 104 mmol/L (98-107); Glucose 126 mg/dL (74-99); Magnesium 1.8 mg/dL (1.6-2.3); Non-African American GFR(CKD) 6 (>60 ml/min/1.73 sqM); Potassium 4.3 mmol/L (3.5-5.1); Sodium 137 mmol/L (137-145)
[2024-04-08] MEDS: CINACALCET 30 MG TAB PO SCH (09:44)
--- NOTE | 2024-04-08 10:34 | P.PN ---
Subjective Patient is seen in follow-up for end-stage renal disease. He is maintained on hemodialysis on Monday schedule. On amiodarone drip for a-fib. Blood cultures positive for citrobacter. Patient denies any active complaints. Vital signs are stable. General: No audible rhonchi or wheezes. HEENT: Head exam is unremarkable. LUNGS: No audible rhonchi or wheezes. HEART: Rate and Rhythm are regular. ABDOMEN: Nontender. EXTREMITITES: No edema. Objective - Vital Signs Vital signs: Vital Signs Temp 98.7 F 04/08/24 04:52 Pulse 66 04/08/24 04:52 Resp 16 04/08/24 04:52 BP 92/53 04/08/24 04:52 Pulse Ox 94 L 04/08/24 04:52 FiO2 Intake & Output 04/07/24 04/08/24 04/08/24 18:59 06:59 18:59 Intake Total 9.667 295.227 180 Output Total 600 200 Balance -590.333 95.227 180 Weight 77.7 kg Intake: Intake, IV Titration 9.667 295.227 Amount Amiodarone 450 mg In 233.06 Dextrose 5% in Water 250 ml @ 0.5 MG/MIN 16.667 mls/hr IV .Q15H [facility] Rx#: [id number] Diltiazem 125 mg In 9.667 62.167 Sodium Chloride 0.9% 100 ml @ 5 MG/HR 5 mls/hr IV .Q24H [facility] Rx#:[id number] Oral 180 Output: Urine 600 200 Other: Voiding Method Urinal Urinal # Bowel Movements 1 1 - Labs CBC & Chem 7: 04/08/24 06:21 04/08/24 06:21 Labs: Abnormal Lab Results - Last 24 Hours (Table) 04/07/24 04/07/24 04/07/24 Range/Units 11:21 16:20 20:52 WBC (3.8-10.6) k/uL RBC (4.30-5.90) m/uL Hgb (13.0-17.5) gm/dL Hct (39.0-53.0) % Plt Count (150-450) k/uL Neutrophils # (1.3-7.7) k/uL BUN (9-20) mg/dL Creatinine (0.66-1.25) mg/dL Glucose (74-99) mg/dL POC Glucose (mg/dL) 138 H 119 H 115 H (70-110) mg/dL 04/08/24 04/08/24 Range/Units 06:21 06:21 WBC 18.1 H (3.8-10.6) k/uL RBC 3.35 L (4.30-5.90) m/uL Hgb 10.5 L (13.0-17.5) gm/dL Hct 31.8 L (39.0-53.0) % Plt Count 128 L (150-450) k/uL Neutrophils # 15.5 H (1.3-7.7) k/uL BUN 68 H (9-20) mg/dL Creatinine 8.42 H* (0.66-1.25) mg/dL Glucose 126 H (74-99) mg/dL POC Glucose (mg/dL) (70-110) mg/dL Microbiology - Last 24 Hours (Table) 04/06/24 00:16 Blood Culture Gram Stain - Preliminary Blood Blood Culture - Preliminary Citrobacter koseri 04/06/24 00:00 Blood Culture Gram Stain - Preliminary Blood Blood Culture - Preliminary Citrobacter koseri Molecular ID 04/06/24 03:22 Urine Culture - Final Urine,Clean Catch Assessment and Plan Plan: Assessment: 1. End-stage renal disease maintained on hemodialysis on Monday schedule. Has a left upper extremity AV fistula. 2. Severe sepsis maintained on IV antibiotics. Blood cultures positive for Citrobacter. 3. Hypertension with chronic kidney disease. Blood pressure currently on the lower side. 4. Chronic kidney disease mineral bone disease. On Sensipar. 5. A-fib with RVR maintained on amiodarone drip. Cardiology following. 6. Hypophosphatemia due to phosphate binders and poor intake. Replaced. Better. Renvela discontinued. Plan: Hemodialysis today. Follow-up cultures.
[2024-04-08 11:27] LABS: Glucose,Whole Blood 176 mg/dL (70-110)
--- NOTE | 2024-04-08 11:45 | P.PN ---
Subjective Progress Note Date: 04/08/24 HISTORY OF PRESENT ILLNESS: This is a 68-year-old male with a past medical history significant for atrial fibrillation/flutter, hypertension, hyperlipidemia, and end-stage renal disease on hemodialysis. Patient follows in the office with Dr. Blandon. We have been asked to see the patient in consultation for A-fib with RVR. Patient examined at the bedside. Patient states he had dialysis on Monday which was uneventful. However, he was brought to the hospital via EMS. He was found to be hypotensive with a pressure in the 60s and febrile with a fever of 101. Patient believes he has been running a low-grade fever at home. Patient was also found to be in A- fib with RVR and was started on IV Cardizem which is currently infusing at 5 milligrams an hour. He remains in atrial fibrillation with heart rate around 150. Patient currently denies any chest pain or pressure. He denies any shortness of breath. Denies any dizziness or lightheadedness. Denies palpitations. He remains hypotensive with a pressure in the 80s. It is also noted that the patient resides at [facility]. Additionally it is noted that the patient recently underwent TONEY and cardioversion on 03/25/[address] Dent. TONEY revealed tricuspid aortic valve with normal function with trace aortic regurgitation, mild mitral regurgitation, normal tricuspid valve, PFO with positive bubble study, left atrial appendage was free of clot, EF 50 to 55%. The patient was cardioverted x 1 with 200 J and converted to sinus mechanism. Patient did have a significant sinus pause and then developed bradycardia with heart rate in the 20s and 30s and required external pacing, atropine, and epinephrine. His heart rate did increase with weaning of sedation. DIAGNOSTICS: - EKG reveals A-fib with RVR - Chest xray negative for acute process - Laboratory data: WBC 24.1. Hemoglobin 10.8. Platelet count 120. Sodium 138. Potassium 4.6. BUN 57. Creatinine 7.44. Magnesium 1.7. Procalcitonin 44. - Current home cardiac medications include metoprolol tartrate 25 mg twice a day, Lipitor 10 mg at night, Eliquis 5 mg twice a day, amiodarone 100 mg daily - Most recent echocardiogram obtained in July 2023 revealed ejection fraction 60 to 65%, mild AI, trace TR, mild MR -Patient underwent Lexiscan stress test in July 2023 revealing matched defect involving apical lateral myocardium with no definite reversible area of ischemia 04/08/2024 Patient seen and examined. Patient converted to sinus rhythm last night. He is currently on Cardizem drip and amiodarone drip. Blood pressure 120/71, heart rate in the 60s and 70s, pulse ox 96% on 2 L nasal cannula. Repeat blood work reveals WBC 18.1, hemoglobin 10.5. BUN 68 creatinine 8.42. Patient is scheduled for hemodialysis today. PHYSICAL EXAM: VITAL SIGNS: Reviewed. GENERAL: Well-developed in no acute distress. HEENT: Head is normocephalic. Pupils are equal, round. Sclerae anicteric. Mucous membranes of the mouth are moist. Neck supple. No JVD or thyromegaly LUNGS: Respirations even and unlabored. Lungs with mild expiratory wheezing HEART: Regular rate and rhythm. S1 and S2 heard. ABDOMEN: Soft. Nondistended. Nontender. EXTREMITIES: No clubbing or cyanosis. Peripheral pulses intact. No lower extremity edema NEUROLOGIC: Awake and alert. Oriented x 3. ASSESSMENT: Sepsis Citrobacter Bacteremia Urinary tract infection Paroxysmal atrial fibrillation with RVR, currently in sinus rhythm Hypotension History of atrial flutter with TONEY and cardioversion, 03/25/2024 End-stage renal disease on hemodialysis Normal coronary arteries, per cardiac catheterization in 2019 performed at [facility] in [place] Hypertension Hyperlipidemia Known PFO Nicotine dependence PLAN: Discontinue Cardizem drip and amiodarone drip Start patient on oral amiodarone 200 mg twice daily Continue midodrine 5 mg TID Continue metoprolol to tartrate to 25 mg 3 times daily Continue telemetry monitoring Further recommendations pending patient course Nurse practitioner note has been reviewed by physician. Signing provider agrees with the documented findings, assessment, and plan of care documented by PROCED TECH as a scribe. Objective - Vital Signs Vital signs: Vital Signs Temp 98.7 F 04/08/24 04:52 Pulse 66 04/08/24 04:52 Resp 16 04/08/24 04:52 BP 92/53 04/08/24 04:52 Pulse Ox 94 L 04/08/24 04:52 FiO2 Intake & Output 04/07/24 04/08/24 04/08/24 18:59 06:59 18:59 Intake Total 9.667 295.227 180 Output Total 600 200 Balance -590.333 95.227 180 Weight 77.7 kg Intake: Intake, IV Titration 9.667 295.227 Amount Amiodarone 450 mg In 233.06 Dextrose 5% in Water 250 ml @ 0.5 MG/MIN 16.667 mls/hr IV .Q15H [facility] Rx#: [id number] Diltiazem 125 mg In 9.667 62.167 Sodium Chloride 0.9% 100 ml @ 5 MG/HR 5 mls/hr IV .Q24H [facility] Rx#:[id number] Oral 180 Output: Urine 600 200 Other: Voiding Method Urinal Urinal # Bowel Movements 1 1 - Labs CBC & Chem 7: 04/08/24 06:21 04/08/24 06:21 Labs: Abnormal Lab Results - Last 24 Hours (Table) 04/07/24 04/07/24 04/07/24 Range/Units 03:18 11:21 16:20 WBC 24.10 H (4.50-10.00) X 10*3/uL RBC 3.49 L (4.40-5.60) X 10*6/uL Hgb 10.8 L (13.0-17.0) g/dL Hct 34.2 L (39.6-50.0) % MCV 98.0 H (80.0-97.0) FL MCHC 31.6 L (32.0-37.0) g/dL RDW 15.4 H (11.5-14.5) % Plt Count 120 L (140-440) X 10*3/uL Neutrophils # (1.3-7.7) k/uL BUN (9-20) mg/dL Creatinine (0.66-1.25) mg/dL Glucose (74-99) mg/dL POC Glucose (mg/dL) 138 H 119 H (70-110) mg/dL 04/07/24 04/08/24 04/08/24 Range/Units 20:52 06:21 06:21 WBC 18.1 H (4.50-10.00) X 10*3/uL RBC 3.35 L (4.40-5.60) X 10*6/uL Hgb 10.5 L (13.0-17.0) g/dL Hct 31.8 L (39.6-50.0) % MCV (80.0-97.0) FL MCHC (32.0-37.0) g/dL RDW (11.5-14.5) % Plt Count 128 L (140-440) X 10*3/uL Neutrophils # 15.5 H (1.3-7.7) k/uL BUN 68 H (9-20) mg/dL Creatinine 8.42 H* (0.66-1.25) mg/dL Glucose 126 H (74-99) mg/dL POC Glucose (mg/dL) 115 H (70-110) mg/dL Microbiology - Last 24 Hours (Table) 04/06/24 00:16 Blood Culture Gram Stain - Preliminary Blood Blood Culture - Preliminary Citrobacter koseri 04/06/24 00:00 Blood Culture Gram Stain - Preliminary Blood Blood Culture - Preliminary Citrobacter koseri Molecular ID 04/06/24 03:22 Urine Culture - Final Urine,Clean Catch
--- NOTE | 2024-04-08 16:26 | P.PN ---
Subjective Progress Note Date: 04/08/24 48-year-old male was sent in from dialysis unit patient had leukocytosis as well patient uses abnormal although patient does not have any UTI symptoms respiratory within normal limits. Patient is Monday dialysis. Patient is also on anticoagulation with Eliquis for atrial fibrillation. Patient denied any body aches denied any diarrhea nausea vomiting abdominal pain. April 07, 2024 Patient went into atrial fibrillation is requiring IV Cardizem and IV amiodarone at this time patient still is tachycardic patient's blood cultures are positive for gram-negative bacilli patient white count went up to 25,000 because of which metronidazole was added to the Rocephin regimen patient is also undergoing CT of the abdomen pelvis to rule out any intra-abdominal source of infection. 04-08-2024 Patient seen and examined at bedside no acute events overnight. Patient with no complaints today. WBC 18.1, hemoglobin 10.5, platelets 128, sodium 137, potassium 4.3, BUN 68, creatinine 8.42, glucose 176. He is to receive dialysis today. Blood culture with Citrobacter koseri. He continues on Rocephin, Flagyl discontinued. ID is monitoring the patient. Patient converted to sinus rhythm and Cardizem drip and amiodarone discontinued. He is now on amiodarone 200 mg twice daily, midodrine 5 mg 3 times daily, metoprolol 25 mg 3 times daily. Cardiology monitoring. REVIEW OF SYSTEMS: All other systems are negative except those mentioned in the HPI PHYSICAL EXAMINATION: Vitals reviewed GENERAL: The patient is alert and oriented x3, not in any acute distress. Well developed, well nourished. HEENT: Pupils are round and equally reacting to light. EOMI. No scleral icterus. No conjunctival pallor. Normocephalic, atraumatic. No pharyngeal erythema. No thyromegaly. CARDIOVASCULAR: S1 and S2 present. No murmurs, rubs, or gallops. PULMONARY: Chest is clear to auscultation, no wheezing or crackles. ABDOMEN: Soft, nontender, nondistended, normoactive bowel sounds. No palpable organomegaly. MUSCULOSKELETAL: No joint swelling or deformity. EXTREMITIES: No cyanosis, clubbing, or pedal edema. NEUROLOGICAL: Gross neurological examination did not reveal any focal deficits. SKIN: No rashes. Assessment and plan -Sepsis possibly of urinary tract infection blood cultures are positive for gram-negative bacilli repeat blood cultures will be obtained patient is on Roce phin, discontinued metronidazole. CT of the abdomen pelvis as mentioned above, ID following -Atrial fibrillation paroxysmal with rapid ventricular rate patient discontinued IV Cardizem IV amiodarone, now on oral amiodarone 200 mg, midodrine 5 mg 3 times daily, metoprolol 25 mg 3 times daily -End-stage renal disease hemodialysis dependent: Nephrology is seeing the patient -Coronary artery disease -Hypertension -Hyperlipidemia -History of PFO -Severe peripheral neuropathy for which patient is on gabapentin -Benign prostatic atrophy -COPD without any acute exacerbation patient has mild wheezing for which we will use a inhaled steroids -Continue to: Use: Counseling was provided with patient is not willing to quit smoking DVT prophylaxis: On Eliquis Objective - Vital Signs Vital signs: Vital Signs Temp 98.4 F 04/08/24 08:00 Pulse 65 04/08/24 14:00 Resp 18 04/08/24 12:00 BP 123/71 04/08/24 12:00 Pulse Ox 96 04/08/24 12:00 FiO2 Intake & Output 04/07/24 04/08/24 04/08/24 18:59 06:59 18:59 Intake Total 9.667 295.227 420 Output Total 600 200 Balance -590.333 95.227 420 Weight 77.7 kg Intake: Intake, IV Titration 9.667 295.227 Amount Amiodarone 450 mg In 233.06 Dextrose 5% in Water 250 ml @ 0.5 MG/MIN 16.667 mls/hr IV .Q15H [facility] Rx#: [id number] Diltiazem 125 mg In 9.667 62.167 Sodium Chloride 0.9% 100 ml @ 5 MG/HR 5 mls/hr IV .Q24H [facility] Rx#:[id number] Oral 420 Output: Urine 600 200 Other: Voiding Method Urinal Urinal # Voids 2 # Bowel Movements 1 1 1 - Labs CBC & Chem 7: 04/08/24 06:21 04/08/24 06:21 Labs: Abnormal Lab Results - Last 24 Hours (Table) 04/07/24 04/07/24 04/08/24 Range/Units 16:20 20:52 06:21 WBC 18.1 H (3.8-10.6) k/uL RBC 3.35 L (4.30-5.90) m/uL Hgb 10.5 L (13.0-17.5) gm/dL Hct 31.8 L (39.0-53.0) % Plt Count 128 L (150-450) k/uL Neutrophils # 15.5 H (1.3-7.7) k/uL BUN (9-20) mg/dL Creatinine (0.66-1.25) mg/dL Glucose (74-99) mg/dL POC Glucose (mg/dL) 119 H 115 H (70-110) mg/dL 04/08/24 04/08/24 Range/Units 06:21 11:26 WBC (3.8-10.6) k/uL RBC (4.30-5.90) m/uL Hgb (13.0-17.5) gm/dL Hct (39.0-53.0) % Plt Count (150-450) k/uL Neutrophils # (1.3-7.7) k/uL BUN 68 H (9-20) mg/dL Creatinine 8.42 H* (0.66-1.25) mg/dL Glucose 126 H (74-99) mg/dL POC Glucose (mg/dL) 176 H (70-110) mg/dL Microbiology - Last 24 Hours (Table) 04/06/24 00:16 Blood Culture Gram Stain - Final Blood Blood Culture - Final Citrobacter koseri 04/06/24 00:00 Blood Culture Gram Stain - Final Blood Blood Culture - Final Citrobacter koseri Molecular ID
[2024-04-08 16:28] LABS: Glucose,Whole Blood 109 mg/dL (70-110)
[2024-04-08] MEDS: AMIODARONE 200 MG TAB PO SCH (18:11)
[2024-04-08 20:37] LABS: Glucose,Whole Blood 125 mg/dL (70-110)
[2024-04-09 06:28] LABS: Glucose,Whole Blood 100 mg/dL (70-110)
[2024-04-09 07:29] LABS: Basophils % (A) 0 %; Eosinophils # (A) 0.4 k/uL (0-0.7); Eosinophils % (A) 3 %; HCT 33.3 % (39.0-53.0); HGB 10.6 gm/dL (13.0-17.5); Hypochromasia Slight; Lymphocytes % (A) 9 %; MCH 30.4 pg (25.0-35.0); MCHC 31.8 g/dL (31.0-37.0); MCV 95.6 fL (80.0-100.0); Mean Platelet Volume 8.6; Monocytes # (A) 0.5 k/uL (0-1.0); Monocytes % (A) 5 %; Neutrophils % (A) 80 %; Platelet Count 139 k/uL (150-450); RBC 3.48 m/uL (4.30-5.90); RDW 14.2 % (11.5-15.5); WBC 11.2 k/uL (3.8-10.6)
[2024-04-09 07:35] LABS: African American GFR (CKD) 12 (>60 ml/min/1.73 sqM); Anion Gap 6 mmol/L; Blood Urea Nitrogen 32 mg/dL (9-20); Calcium 7.7 mg/dL (8.4-10.2); Carbon Dioxide 30 mmol/L (22-30); Chloride 101 mmol/L (98-107); Glucose 89 mg/dL (74-99); Non-African American GFR(CKD) 11 (>60 ml/min/1.73 sqM); Potassium 4.1 mmol/L (3.5-5.1); Sodium 137 mmol/L (137-145)
--- NOTE | 2024-04-09 08:40 | P.PN ---
Subjective Progress Note Date: 04/08/24 Principal diagnosis: Reason for follow-up is UTI bacteremia Patient is a 78-year-old male past medical history significant for hypertension hyperlipidemia reflux atrial fibrillation end-stage renal disease on dialysis through the left arm AV fistula patient was brought into the hospital for evaluation of fever with initial concern for possible urinary source the patient still makes urine and did have a positive UA blood cultures came back positive with Enterobacteriaceae with no resistant pathogen. On today's evaluation that is 04/08/2024, patient has been afebrile, patient is breathing comfortably and is currently on 2 L nasal cannula oxygen, patient denies having any significant cough no chest pain, patient denies nausea vomiting or diarrhea and no abdominal pain. Patient white count is down to 18.1 creatinine 0.42 blood culture with Citrobacter did have abdominal pelvis CT features of cystitis but no abscess Objective - Vital Signs Vital signs: Vital Signs Temp 98.4 F 04/08/24 08:00 Pulse 71 04/08/24 08:00 Resp 18 04/08/24 08:00 BP 120/71 04/08/24 08:00 Pulse Ox 96 04/08/24 08:00 FiO2 Intake & Output 04/07/24 04/08/24 04/08/24 18:59 06:59 18:59 Intake Total 9.667 295.227 180 Output Total 600 200 Balance -590.333 95.227 180 Weight 77.7 kg Intake: Intake, IV Titration 9.667 295.227 Amount Amiodarone 450 mg In 233.06 Dextrose 5% in Water 250 ml @ 0.5 MG/MIN 16.667 mls/hr IV .Q15H [facility] Rx#: [id number] Diltiazem 125 mg In 9.667 62.167 Sodium Chloride 0.9% 100 ml @ 5 MG/HR 5 mls/hr IV .Q24H [facility] Rx#:[id number] Oral 180 Output: Urine 600 200 Other: Voiding Method Urinal Urinal # Bowel Movements 1 1 - Exam GENERAL DESCRIPTION: An elderly male lying in bed in no distress RESPIRATORY SYSTEM: Unlabored breathing , decreased breath sounds at bases HEART: S1 S2 regular rate and rhythm , ABDOMEN: Soft , no tenderness EXTREMITIES: No edema feet - Labs CBC & Chem 7: 04/09/24 06:42 04/09/24 06:42 Labs: Abnormal Lab Results - Last 24 Hours (Table) 04/07/24 04/07/24 04/07/24 Range/Units 11:21 16:20 20:52 WBC (3.8-10.6) k/uL RBC (4.30-5.90) m/uL Hgb (13.0-17.5) gm/dL Hct (39.0-53.0) % Plt Count (150-450) k/uL Neutrophils # (1.3-7.7) k/uL BUN (9-20) mg/dL Creatinine (0.66-1.25) mg/dL Glucose (74-99) mg/dL POC Glucose (mg/dL) 138 H 119 H 115 H (70-110) mg/dL 04/08/24 04/08/24 Range/Units 06:21 06:21 WBC 18.1 H (3.8-10.6) k/uL RBC 3.35 L (4.30-5.90) m/uL Hgb 10.5 L (13.0-17.5) gm/dL Hct 31.8 L (39.0-53.0) % Plt Count 128 L (150-450) k/uL Neutrophils # 15.5 H (1.3-7.7) k/uL BUN 68 H (9-20) mg/dL Creatinine 8.42 H* (0.66-1.25) mg/dL Glucose 126 H (74-99) mg/dL POC Glucose (mg/dL) (70-110) mg/dL Microbiology - Last 24 Hours (Table) 04/06/24 00:16 Blood Culture Gram Stain - Preliminary Blood Blood Culture - Preliminary Citrobacter koseri 04/06/24 00:00 Blood Culture Gram Stain - Preliminary Blood Blood Culture - Preliminary Citrobacter koseri Molecular ID 04/06/24 03:22 Urine Culture - Final Urine,Clean Catch Assessment and Plan (1) Sepsis Current Visit: Yes Status: Acute Code(s): A41.9 - SEPSIS, UNSPECIFIED ORGANISM SNOMED Code(s): 57728370 Plan: 1patient was in the hospital with sepsis in this patient who did have fever tachycardia elevated white count source possible urinary as the patient will still make some urine with no other obvious clinical focus of infection patient lungs clear to auscultation chest x-ray was negative abdominal soft. 2patient did have a positive blood culture with Citrobacter source likely cystitis as CT abdominal pelvis did not show any evidence of colitis or abscess 3patient will be treated with Rocephin 2 g daily however discontinue Flagyl blood culture will be repeated document clearance in view of significant bacteremia Dictation was produced using [employer] dictation software. please excuse any grammatical, word or spelling errors. Time with Patient: Less than 30
--- NOTE | 2024-04-09 09:56 | P.PN ---
Subjective Progress Note Date: 04/09/24 Hospital Course: 68-year-old male with history of paroxysmal atrial fibrillation, ESRD on hemod ialysis, CAD, hypertension, dyslipidemia, peripheral neuropathy, nicotine dependence presented initially with severe sepsis, likely secondary to suspected urinary tract infection. Initial laboratory workup showed WBC 18.1, creatinine 5.08, lactate 3.1, Pro-Costa 44, urinalysis shows large leukocyte esterase, negative nitrates, respiratory viral panel negative. EKG showed supraventricular rhythm. Chest x-ray showed no opacities. Blood cultures positive for Citrobacter koseri. ID also consulted. Patient currently on IV ceftriaxone. CT abdomen pelvis showed urinary bladder wall thickening and adjacent perivesicular stranding and inflammation, trace bilateral pleural effusion, colonic diverticulosis. Cardiology also consulted for paroxysmal atrial fibrillation with RVR, patient was on IV Cardizem and IV amiodarone now back on oral. Nephrology consulted for hemodialysis. Subjective: Patient seen and examined at bedside. No acute events overnight. Pertinent positives and negatives as discussed above, a complete review of systems was performed and all other systems are negative. Vitals Signs Reviewed. General: Nontoxic, no distress, appears at stated age Derm: Warm, dry Head: Atraumatic, normocephalic, symmetric Eyes: EOMI, no lid lag, anicteric sclera Mouth: No lip lesion, mucus membranes moist Cardiovascular: S1S2 reg, no murmur, left arm AV fistula Lungs: CTA bilateral, no rhonchi, no rales, no accessory muscle use Abdominal: Soft, nontender to palpation, no guarding, no appreciable organomegaly Ext: No gross muscle atrophy, no edema, no contractures Neuro: CN II-XI grossly intact, no focal neuro deficits Psych: Alert, oriented, appropriate affect Data Reviewed Today: Pertinent Labs: WBC 11.2, hemoglobin 10.6, platelet 139, creatinine 5.14, glucose range between 89-1 76 Imaging: No new imaging Assessment and Plan: Active: Severe sepsis secondary to suspected complicated urinary tract infection Citrobacter bacteremia Mild normocytic anemia Mild thrombocytopenia -Repeat blood cultures pending -Continue IV ceftriaxone 2 g nightly -Infectious disease following -Anemia and thrombocytopenia likely secondary to acute illness, continue to monitor CBC Paroxysmal atrial fibrillation with RVR, now rate controlled Hypotension -Cardiology following -On oral amiodarone 200 mg twice daily, metoprolol titrate 25 3 times daily, Eliquis 5 twice daily -Also on midodrine 5 AC 3 times daily ESRD on hemodialysis Hypophosphatemia -Nephrology following for hemodialysis -Sodium bicarb 650 twice daily, Sensipar 93 times per week -Phosphate binders discontinued Resolved: Lactic acidosis Chronic: BPH Peripheral neuropathy Dyslipidemia Chronic pain COPD, not in exacerbation DVT ppx: Eliquis Code status: Full code Anticipated discharge place: Pending clinical course Anticipated discharge time: Pending clinical course Objective - Vital Signs Vital signs: Vital Signs Temp 98.9 F 04/09/24 05:45 Pulse 62 04/09/24 05:45 Resp 20 04/09/24 05:45 BP 114/56 04/09/24 05:45 Pulse Ox 95 04/09/24 05:45 FiO2 Intake & Output 04/08/24 04/09/24 04/09/24 18:59 06:59 18:59 Intake Total 1160 Output Total 1500 600 Balance -340 -600 Weight 76.1 kg Intake: Oral 660 Hemodialysis 500 Output: Urine 600 Hemodialysis 1000 Hemodialysis Net Amount 500 Other: Voiding Method Urinal # Voids 2 # Bowel Movements 1 1 - Labs CBC & Chem 7: 04/09/24 06:42 04/09/24 06:42 Labs: Abnormal Lab Results - Last 24 Hours (Table) 04/08/24 04/08/24 04/09/24 Range/Units 11:26 20:32 06:42 WBC 11.2 H (3.8-10.6) k/uL RBC 3.48 L (4.30-5.90) m/uL Hgb 10.6 L (13.0-17.5) gm/dL Hct 33.3 L (39.0-53.0) % Plt Count 139 L (150-450) k/uL Neutrophils # 9.0 H (1.3-7.7) k/uL BUN (9-20) mg/dL Creatinine (0.66-1.25) mg/dL POC Glucose (mg/dL) 176 H 125 H (70-110) mg/dL Calcium (8.4-10.2) mg/dL 04/09/24 Range/Units 06:42 WBC (3.8-10.6) k/uL RBC (4.30-5.90) m/uL Hgb (13.0-17.5) gm/dL Hct (39.0-53.0) % Plt Count (150-450) k/uL Neutrophils # (1.3-7.7) k/uL BUN 32 H (9-20) mg/dL Creatinine 5.14 H (0.66-1.25) mg/dL POC Glucose (mg/dL) (70-110) mg/dL Calcium 7.7 L (8.4-10.2) mg/dL Microbiology - Last 24 Hours (Table) 04/06/24 00:16 Blood Culture Gram Stain - Final Blood Blood Culture - Final Citrobacter koseri 04/06/24 00:00 Blood Culture Gram Stain - Final Blood Blood Culture - Final Citrobacter koseri Molecular ID
--- NOTE | 2024-04-09 10:19 | P.PN ---
Subjective Patient is seen in follow-up for end-stage renal disease. He is maintained on hemodialysis on Monday schedule. Now on oral amiodarone and Lopressor for A-fib. Blood cultures positive for citrobacter. Patient denies any active complaints. Vital signs are stable. General: No audible rhonchi or wheezes. HEENT: Head exam is unremarkable. LUNGS: No audible rhonchi or wheezes. HEART: Rate and Rhythm are regular. ABDOMEN: Nontender. EXTREMITITES: No edema. Objective - Vital Signs Vital signs: Vital Signs Temp 98.8 F 04/09/24 08:00 Pulse 71 04/09/24 08:00 Resp 20 04/09/24 08:00 BP 115/68 04/09/24 08:00 Pulse Ox 93 L 04/09/24 08:00 FiO2 Intake & Output 04/08/24 04/09/24 04/09/24 18:59 06:59 18:59 Intake Total 1160 240 Output Total 1500 600 125 Balance -340 -600 115 Weight 76.1 kg Intake: Oral 660 240 Hemodialysis 500 Output: Urine 600 125 Hemodialysis 1000 Hemodialysis Net Amount 500 Other: Voiding Method Urinal Urinal # Voids 2 1 # Bowel Movements 1 1 1 - Labs CBC & Chem 7: 04/09/24 06:42 04/09/24 06:42 Labs: Abnormal Lab Results - Last 24 Hours (Table) 04/08/24 04/08/24 04/09/24 Range/Units 11:26 20:32 06:42 WBC 11.2 H (3.8-10.6) k/uL RBC 3.48 L (4.30-5.90) m/uL Hgb 10.6 L (13.0-17.5) gm/dL Hct 33.3 L (39.0-53.0) % Plt Count 139 L (150-450) k/uL Neutrophils # 9.0 H (1.3-7.7) k/uL BUN (9-20) mg/dL Creatinine (0.66-1.25) mg/dL POC Glucose (mg/dL) 176 H 125 H (70-110) mg/dL Calcium (8.4-10.2) mg/dL 04/09/24 Range/Units 06:42 WBC (3.8-10.6) k/uL RBC (4.30-5.90) m/uL Hgb (13.0-17.5) gm/dL Hct (39.0-53.0) % Plt Count (150-450) k/uL Neutrophils # (1.3-7.7) k/uL BUN 32 H (9-20) mg/dL Creatinine 5.14 H (0.66-1.25) mg/dL POC Glucose (mg/dL) (70-110) mg/dL Calcium 7.7 L (8.4-10.2) mg/dL Microbiology - Last 24 Hours (Table) 04/06/24 00:16 Blood Culture Gram Stain - Final Blood Blood Culture - Final Citrobacter koseri 04/06/24 00:00 Blood Culture Gram Stain - Final Blood Blood Culture - Final Citrobacter koseri Molecular ID Assessment and Plan Plan: Assessment: 1. End-stage renal disease maintained on hemodialysis on Monday schedule. Has a left upper extremity AV fistula. 2. Severe sepsis maintained on IV antibiotics. Blood cultures positive for Citrobacter. 3. Hypertension with chronic kidney disease. Controlled. 4. Chronic kidney disease mineral bone disease. On Sensipar. 5. A-fib with RVR maintained on oral amiodarone and Lopressor. Cardiology following. 6. Hypophosphatemia due to phosphate binders and poor intake. Replaced. Better. Renvela discontinued. Plan: Hemodialysis tomorrow. Follow-up cultures.
--- NOTE | 2024-04-09 11:15 | P.PN ---
Subjective Progress Note Date: 04/09/24 HISTORY OF PRESENT ILLNESS: This is a 68-year-old male with a past medical history significant for atrial fibrillation/flutter, hypertension, hyperlipidemia, and end-stage renal disease on hemodialysis. Patient follows in the office with Dr. Blandon. We have been asked to see the patient in consultation for A-fib with RVR. Patient examined at the bedside. Patient states he had dialysis on Monday which was uneventful. However, he was brought to the hospital via EMS. He was found to be hypotensive with a pressure in the 60s and febrile with a fever of 101. Patient believes he has been running a low-grade fever at home. Patient was also found to be in A- fib with RVR and was started on IV Cardizem which is currently infusing at 5 milligrams an hour. He remains in atrial fibrillation with heart rate around 150. Patient currently denies any chest pain or pressure. He denies any shortness of breath. Denies any dizziness or lightheadedness. Denies palpitations. He remains hypotensive with a pressure in the 80s. It is also noted that the patient resides at [facility]. Additionally it is noted that the patient recently underwent TONEY and cardioversion on 03/25/[address] Dent. TONEY revealed tricuspid aortic valve with normal function with trace aortic regurgitation, mild mitral regurgitation, normal tricuspid valve, PFO with positive bubble study, left atrial appendage was free of clot, EF 50 to 55%. The patient was cardioverted x 1 with 200 J and converted to sinus mechanism. Patient did have a significant sinus pause and then developed bradycardia with heart rate in the 20s and 30s and required external pacing, atropine, and epinephrine. His heart rate did increase with weaning of sedation. DIAGNOSTICS: - EKG reveals A-fib with RVR - Chest xray negative for acute process - Laboratory data: WBC 24.1. Hemoglobin 10.8. Platelet count 120. Sodium 138. Potassium 4.6. BUN 57. Creatinine 7.44. Magnesium 1.7. Procalcitonin 44. - Current home cardiac medications include metoprolol tartrate 25 mg twice a day, Lipitor 10 mg at night, Eliquis 5 mg twice a day, amiodarone 100 mg daily - Most recent echocardiogram obtained in July 2023 revealed ejection fraction 60 to 65%, mild AI, trace TR, mild MR -Patient underwent Lexiscan stress test in July 2023 revealing matched defect involving apical lateral myocardium with no definite reversible area of ischemia 04/08/2024 Patient seen and examined. Patient converted to sinus rhythm last night. He is currently on Cardizem drip and amiodarone drip. Blood pressure 120/71, heart rate in the 60s and 70s, pulse ox 96% on 2 L nasal cannula. Repeat blood work reveals WBC 18.1, hemoglobin 10.5. BUN 68 creatinine 8.42. Patient is scheduled for hemodialysis today. 04/09/24 Patient seen and examined. Blood pressure 115/68, heart rate in the 60s and 70s, pulse ox 93% on room air. Patient continues to maintain sinus rhythm. Repeat blood work reveals WBC 11.2, hemoglobin 10.6, BUN 32 and creatinine 5.14, potassium 4.1. Patient is scheduled for hemodialysis tomorrow. Yesterday, Cardizem drip and amiodarone drips were discontinued. PHYSICAL EXAM: VITAL SIGNS: Reviewed. GENERAL: Well-developed in no acute distress. HEENT: Head is normocephalic. Pupils are equal, round. Sclerae anicteric. Mucous membranes of the mouth are moist. Neck supple. No JVD or thyromegaly LUNGS: Respirations even and unlabored. Lungs with mild expiratory wheezing HEART: Regular rate and rhythm. S1 and S2 heard. ABDOMEN: Soft. Nondistended. Nontender. EXTREMITIES: No clubbing or cyanosis. Peripheral pulses intact. No lower extremity edema NEUROLOGIC: Awake and alert. Oriented x 3. ASSESSMENT: Sepsis Citrobacter Bacteremia Urinary tract infection Paroxysmal atrial fibrillation with RVR, currently in sinus rhythm Hypotension History of atrial flutter with TONEY and cardioversion, 03/25/2024 End-stage renal disease on hemodialysis Normal coronary arteries, per cardiac catheterization in 2019 performed at [facility] in [place] Hypertension Hyperlipidemia Known PFO Nicotine dependence PLAN: Continue patient on oral amiodarone 200 mg twice daily, Eliquis 5 mg twice daily Continue midodrine 5 mg TID Continue metoprolol tartrate 25 mg 3 times daily Continue telemetry monitoring Further recommendations pending patient course Nurse practitioner note has been reviewed by physician. Signing provider agrees with the documented findings, assessment, and plan of care documented by EMERGENCY COMMUNICATIONS DISPATCHER as a scribe. Objective - Vital Signs Vital signs: Vital Signs Temp 98.9 F 04/09/24 05:45 Pulse 62 04/09/24 05:45 Resp 20 04/09/24 05:45 BP 114/56 04/09/24 05:45 Pulse Ox 95 04/09/24 05:45 FiO2 Intake & Output 04/08/24 04/09/24 04/09/24 18:59 06:59 18:59 Intake Total 1160 Output Total 1500 600 Balance -340 -600 Weight 76.1 kg Intake: Oral 660 Hemodialysis 500 Output: Urine 600 Hemodialysis 1000 Hemodialysis Net Amount 500 Other: Voiding Method Urinal # Voids 2 # Bowel Movements 1 1 - Labs CBC & Chem 7: 04/09/24 06:42 04/09/24 06:42 Labs: Abnormal Lab Results - Last 24 Hours (Table) 04/08/24 04/08/24 04/09/24 Range/Units 11:26 20:32 06:42 WBC 11.2 H (3.8-10.6) k/uL RBC 3.48 L (4.30-5.90) m/uL Hgb 10.6 L (13.0-17.5) gm/dL Hct 33.3 L (39.0-53.0) % Plt Count 139 L (150-450) k/uL Neutrophils # 9.0 H (1.3-7.7) k/uL BUN (9-20) mg/dL Creatinine (0.66-1.25) mg/dL POC Glucose (mg/dL) 176 H 125 H (70-110) mg/dL Calcium (8.4-10.2) mg/dL 04/09/24 Range/Units 06:42 WBC (3.8-10.6) k/uL RBC (4.30-5.90) m/uL Hgb (13.0-17.5) gm/dL Hct (39.0-53.0) % Plt Count (150-450) k/uL Neutrophils # (1.3-7.7) k/uL BUN 32 H (9-20) mg/dL Creatinine 5.14 H (0.66-1.25) mg/dL POC Glucose (mg/dL) (70-110) mg/dL Calcium 7.7 L (8.4-10.2) mg/dL Microbiology - Last 24 Hours (Table) 04/06/24 00:16 Blood Culture Gram Stain - Final Blood Blood Culture - Final Citrobacter koseri 04/06/24 00:00 Blood Culture Gram Stain - Final Blood Blood Culture - Final Citrobacter koseri Molecular ID
[2024-04-09 11:57] LABS: Glucose,Whole Blood 114 mg/dL (70-110)
[2024-04-09 16:53] LABS: Glucose,Whole Blood 126 mg/dL (70-110)
[2024-04-09 20:19] LABS: Glucose,Whole Blood 105 mg/dL (70-110)
[2024-04-10 06:08] LABS: Glucose,Whole Blood 95 mg/dL (70-110)
--- NOTE | 2024-04-10 10:22 | P.PN ---
Subjective Patient is seen in follow-up for end-stage renal disease. He is maintained on hemodialysis on Monday schedule. Now on oral amiodarone and Lopressor for A-fib. Blood cultures positive for citrobacter. Patient denies any active complaints. Vital signs are stable. General: No audible rhonchi or wheezes. HEENT: Head exam is unremarkable. LUNGS: No audible rhonchi or wheezes. HEART: Rate and Rhythm are regular. ABDOMEN: Nontender. EXTREMITITES: No edema. Objective - Vital Signs Vital signs: Vital Signs Temp 98.1 F 04/10/24 08:00 Pulse 64 04/10/24 08:00 Resp 18 04/10/24 08:00 BP 125/61 04/10/24 08:00 Pulse Ox 92 L 04/10/24 08:00 FiO2 Intake & Output 04/09/24 04/10/24 04/10/24 18:59 06:59 18:59 Intake Total 840 480 118 Output Total 400 600 Balance 440 -120 118 Weight 77 kg Intake: Oral 840 480 118 Output: Urine 400 600 Other: Voiding Method Urinal Urinal Urinal # Voids 1 # Bowel Movements 1 1 - Labs CBC & Chem 7: 04/09/24 06:42 04/09/24 06:42 Labs: Abnormal Lab Results - Last 24 Hours (Table) 04/09/24 04/09/24 Range/Units 11:55 16:52 POC Glucose (mg/dL) 114 H 126 H (70-110) mg/dL Microbiology - Last 24 Hours (Table) 04/07/24 21:15 Blood Culture - Preliminary Blood Assessment and Plan Plan: Assessment: 1. End-stage renal disease maintained on hemodialysis on Monday schedule. Has a left upper extremity AV fistula. 2. Severe sepsis maintained on IV antibiotics. Blood cultures positive for Citrobacter. Concern for cystitis. ID following. 3. Hypertension with chronic kidney disease. Controlled. 4. Chronic kidney disease mineral bone disease. On Sensipar. 5. A-fib with RVR maintained on oral amiodarone and Lopressor. Cardiology following. 6. Hypophosphatemia due to phosphate binders and poor intake. Replaced. Better. Renvela discontinued. Plan: Hemodialysis today.
[2024-04-10 11:28] LABS: Glucose,Whole Blood 99 mg/dL (70-110)
--- NOTE | 2024-04-10 11:33 | P.DS ---
Providers Date of admission: 04/06/24 03:10 Attending physician: Homero Frederick Consults: 04/06/24 03:13 Consult Physician Routine Consulting Provider: Feliciats Ricks Consult Reason/Comments: UTI. Sepsis Do you want consulting provider notified?: Yes Consult Physician Routine Consulting Provider: Sheridan Santana Consult Reason/Comments: Dialysis patient Do you want consulting provider notified?: Yes 04/07/24 05:59 Consult Physician Routine Consulting Provider: John Dent Consult Reason/Comments: afib rvr Do you want consulting provider notified?: Yes, Notify in am Primary care physician: [facility] [place] Hospital Course: 68-year-old male with history of paroxysmal atrial fibrillation, ESRD on hemodialysis, CAD, hypertension, dyslipidemia, peripheral neuropathy, nicotine dependence presented initially with severe sepsis, likely secondary to suspected urinary tract infection. Initial laboratory workup showed WBC 18.1, creatinine 5.08, lactate 3.1, Pro-Costa 44, urinalysis shows large leukocyte esterase, negative nitrates, respiratory viral panel negative. EKG showed supraventricular rhythm. Chest x-ray showed no opacities. Blood cultures positive for Citrobacter koseri. ID also consulted. Patient currently on IV ceftriaxone. CT abdomen pelvis showed urinary bladder wall thickening and adjacent perivesicular stranding and inflammation, trace bilateral pleural effusion, colonic diverticulosis. Cardiology also consulted for paroxysmal atrial fibrillation with RVR, patient was on IV Cardizem and IV amiodarone now back on oral. Nephrology consulted for hemodialysis. Transtioned from ceftriaxone to ceftin given citrobacter bactermia. repeta bcx negative. he was discharged after iHD on 04/10. Assessment: Severe sepsis secondary to suspected complicated urinary tract infection Citrobacter bacteremia-- continue ceftin as prescribed Paroxysmal atrial fibrillation with RVR, now rate controlled Hypotension- continue amidoarone 200 mg bid, metoprolol tartrate 25 mg TID and middrine 5m mg tid Patient Condition at Discharge: Fair Plan - Discharge Summary Discharge Rx Participant: No New Discharge Prescriptions: New cefuroxime axetiL [Ceftin] 500 mg PO DAILY #14 tab Metoprolol Tartrate [Lopressor] 25 mg PO TID 30 Days #90 tab Midodrine [ProAmatine] 5 mg PO AC-TID 30 Days #90 tab Amiodarone [Cordarone] 200 mg PO BID 30 Days #60 tab Atorvastatin [Lipitor] 20 mg PO HS 30 Days #30 tab Continue Cyanocobalamin [Vitamin B-12] 500 mcg PO DAILY@0800 Tamsulosin [Flomax] 0.4 mg PO HS@1999 Menthol [Biofreeze] 1 applic TOPICAL BID PRN PRN Reason: Pain Acetaminophen [Tylenol Extra Strength] 1,000 mg PO TID PRN PRN Reason: Fever And/ Or Pain Sennosides [Senokot] 17.2 mg PO DAILY@0800 methocarbamoL [Robaxin] 500 mg PO HS@1999 Buprenorphine [Butrans 10 MCG/HOUR] 1 patch TRANSDERM SA@0800 Diclofenac Sodium [Diclofenac Sodium 1%] 1 applic TOPICAL QID PRN PRN Reason: Pain methocarbamoL [Robaxin] 500 mg PO TID PRN PRN Reason: Pain Melatonin 3 mg PO HS PRN PRN Reason: Insomnia Cinacalcet HCl [Sensipar] 90 mg PO MOWEFR Sodium Bicarbonate Tab 650 mg PO BID@08,1999 Patiromer Calcium Sorbitex [Veltassa] 1 packet PO SUTUTHSA@0800 Omeprazole [PriLOSEC] 20 mg PO BID@08,1999 Nitroglycerin Sl Tabs [Nitrostat] 0.4 mg SUBLINGUAL Q5M PRN tab PRN Reason: Chest Pain Albuterol Sulfate [Albuterol Sulfate Hfa] 1 puff PO RT-QID PRN PRN Reason: Wheezing Loratadine [Claritin] 10 mg PO DAILY@0800 Gabapentin [Neurontin] 200 mg PO TID@0800,1700,1999 Apixaban [Eliquis] 5 mg PO BID@08,1999 Budesonide/Formoterol Fumarate [Breyna 160-4.5 Mcg Inhaler] 1 puff INHALATION RT-BID@799,1999 Phenol 1.4% [place] [Sore Throat [place] (Chloraseptic)] 1 applic MUCOUS MEM Q2H PRN PRN Reason: Sore Throat Loperamide HCl [Loperamide] 2 mg PO QID PRN PRN Reason: Diarrhea Carboxymethylcellulos/Glycerin [Refresh Relieva 0.5-0.9% Drop] 1 - 2 drop BOTH EYES TID PRN PRN Reason: Dry Eye(S) Ipratropium-Albuterol Nebulize [Duoneb 0.5 mg-3 mg/3 ml Soln] 3 ml INHALATION RT-BID PRN PRN Reason: Shortness Of Breath Discontinued Atorvastatin [Lipitor] 10 mg PO HS@1999 Sevelamer Carbonate 800 mg PO HS@1999 Metoprolol Tartrate [Lopressor] 25 mg PO BID@799,1999 Sevelamer Carbonate 2,400 mg PO AC-TID@173 Amiodarone [Cordarone] 100 mg PO DAILY@0800 Discharge Medication List Cyanocobalamin [Vitamin B-12] 500 mcg PO DAILY@0800 07/24/23 [History] Omeprazole [PriLOSEC] 20 mg PO BID@799,199907/24/23 [History] Patiromer Calcium Sorbitex [Veltassa] 1 packet PO SUTUTHSA@79907/24/23 [History] Sodium Bicarbonate Tab 650 mg PO BID@799,199907/24/23 [History] Tamsulosin [Flomax] 0.4 mg PO HS@199907/24/23 [History] Nitroglycerin Sl Tabs [Nitrostat] 0.4 mg SUBLINGUAL Q5M PRN tab 07/28/23 [Rx] Acetaminophen [Tylenol Extra Strength] 1,000 mg PO TID PRN 03/26/24 [History] Albuterol Sulfate [Albuterol Sulfate Hfa] 1 puff PO RT-QID PRN 03/26/24 [History] Apixaban [Eliquis] 5 mg PO BID@08,199903/26/24 [History] Budesonide/Formoterol Fumarate [Breyna 160-4.5 Mcg Inhaler] 1 puff INHALATION RT-BID@799,199903/26/24 [History] Buprenorphine [Butrans 10 MCG/HOUR] 1 patch TRANSDERM SA@79903/26/24 [History] Diclofenac Sodium [Diclofenac Sodium 1%] 1 applic TOPICAL QID PRN 03/26/24 [History] Gabapentin [Neurontin] 200 mg PO TID@0800,1700,199903/26/24 [History] Loperamide HCl [Loperamide] 2 mg PO QID PRN 03/26/24 [History] Loratadine [Claritin] 10 mg PO DAILY@0800 03/26/24 [History] Melatonin 3 mg PO HS PRN 03/26/24 [History] Menthol [Biofreeze] 1 applic TOPICAL BID PRN 03/26/24 [History] Phenol 1.4% [place] [Sore Throat [place] (Chloraseptic)] 1 applic MUCOUS MEM Q2H PRN 03/26/24 [History] Sennosides [Senokot] 17.2 mg PO DAILY@0803/26/24 [History] methocarbamoL [Robaxin] 500 mg PO HS@199903/26/24 [History] methocarbamoL [Robaxin] 500 mg PO TID PRN 03/26/24 [History] Carboxymethylcellulos/Glycerin [Refresh Relieva 0.5-0.9% Drop] 1 - 2 drop BOTH EYES TID PRN 04/06/24 [History] Cinacalcet HCl [Sensipar] 90 mg PO MOWEFR 04/06/24 [History] Ipratropium-Albuterol Nebulize [Duoneb 0.5 mg-3 mg/3 ml Soln] 3 ml INHALATION RT-BID PRN 04/06/24 [History] Amiodarone [Cordarone] 200 mg PO BID 30 Days #60 tab 04/10/24 [Rx] Atorvastatin [Lipitor] 20 mg PO HS 30 Days #30 tab 04/10/24 [Rx] Metoprolol Tartrate [Lopressor] 25 mg PO TID 30 Days #90 tab 04/10/24 [Rx] Midodrine [ProAmatine] 5 mg PO AC-TID 30 Days #90 tab 04/10/24 [Rx] cefuroxime axetiL [Ceftin] 500 mg PO DAILY #14 tab 04/10/24 [Rx] Follow up Appointment(s)/Referral(s): Anderson Roberson [Primary Care Provider] - 1-2 days (CALL AND MAKE LILLIAN!) Michael Blandon MD [STAFF PHYSICIAN] - 3 Weeks Patient Instructions/Handouts: Sepsis (DC) Discharge Disposition: HOME SELF-CARE
--- NOTE | 2024-04-10 15:16 | P.PN ---
Subjective Progress Note Date: 04/10/24 HISTORY OF PRESENT ILLNESS: This is a 68-year-old male with a past medical history significant for atrial fibrillation/flutter, hypertension, hyperlipidemia, and end-stage renal disease on hemodialysis. Patient follows in the office with Dr. Blandon. We have been asked to see the patient in consultation for A-fib with RVR. Patient examined at the bedside. Patient states he had dialysis on Monday which was uneventful. However, he was brought to the hospital via EMS. He was found to be hypotensive with a pressure in the 60s and febrile with a fever of 101. Patient believes he has been running a low-grade fever at home. Patient was also found to be in A- fib with RVR and was started on IV Cardizem which is currently infusing at 5 milligrams an hour. He remains in atrial fibrillation with heart rate around 150. Patient currently denies any chest pain or pressure. He denies any shortness of breath. Denies any dizziness or lightheadedness. Denies palpitations. He remains hypotensive with a pressure in the 80s. It is also noted that the patient resides at [facility]. Additionally it is noted that the patient recently underwent TONEY and cardioversion on 03/25/[address] Dent. TONEY revealed tricuspid aortic valve with normal function with trace aortic regurgitation, mild mitral regurgitation, normal tricuspid valve, PFO with positive bubble study, left atrial appendage was free of clot, EF 50 to 55%. The patient was cardioverted x 1 with 200 J and converted to sinus mechanism. Patient did have a significant sinus pause and then developed bradycardia with heart rate in the 20s and 30s and required external pacing, atropine, and epinephrine. His heart rate did increase with weaning of sedation. DIAGNOSTICS: - EKG reveals A-fib with RVR - Chest xray negative for acute process - Laboratory data: WBC 24.1. Hemoglobin 10.8. Platelet count 120. Sodium 138. Potassium 4.6. BUN 57. Creatinine 7.44. Magnesium 1.7. Procalcitonin 44. - Current home cardiac medications include metoprolol tartrate 25 mg twice a day, Lipitor 10 mg at night, Eliquis 5 mg twice a day, amiodarone 100 mg daily - Most recent echocardiogram obtained in July 2023 revealed ejection fraction 60 to 65%, mild AI, trace TR, mild MR -Patient underwent Lexiscan stress test in July 2023 revealing matched defect involving apical lateral myocardium with no definite reversible area of ischemia 04/08/2024 Patient seen and examined. Patient converted to sinus rhythm last night. He is currently on Cardizem drip and amiodarone drip. Blood pressure 120/71, heart rate in the 60s and 70s, pulse ox 96% on 2 L nasal cannula. Repeat blood work reveals WBC 18.1, hemoglobin 10.5. BUN 68 creatinine 8.42. Patient is scheduled for hemodialysis today. 04/09/24 Patient seen and examined. Blood pressure 115/68, heart rate in the 60s and 70s, pulse ox 93% on room air. Patient continues to maintain sinus rhythm. Repeat blood work reveals WBC 11.2, hemoglobin 10.6, BUN 32 and creatinine 5.14, potassium 4.1. Patient is scheduled for hemodialysis tomorrow. Yesterday, Cardizem drip and amiodarone drips were discontinued. 04/30 Patient seen and examined. Patient remains in sinus rhythm. Blood pressure 132/64, heart rate in the 60s, pulse ox 95% on room air. Patient states that he is scheduled for discharge home today. PHYSICAL EXAM: VITAL SIGNS: Reviewed. GENERAL: Well-developed in no acute distress. HEENT: Head is normocephalic. Pupils are equal, round. Sclerae anicteric. Mucous membranes of the mouth are moist. Neck supple. No JVD or thyromegaly LUNGS: Respirations even and unlabored. Lungs with mild expiratory wheezing HEART: Regular rate and rhythm. S1 and S2 heard. ABDOMEN: Soft. Nondistended. Nontender. EXTREMITIES: No clubbing or cyanosis. Peripheral pulses intact. No lower extremity edema NEUROLOGIC: Awake and alert. Oriented x 3. ASSESSMENT: Sepsis Citrobacter Bacteremia Urinary tract infection Paroxysmal atrial fibrillation with RVR, currently in sinus rhythm Hypotension History of atrial flutter with TONEY and cardioversion, 03/25/2024 End-stage renal disease on hemodialysis Normal coronary arteries, per cardiac catheterization in 2019 performed at [facility] in [place] Hypertension Hyperlipidemia Known PFO Nicotine dependence PLAN: Continue patient on oral amiodarone 200 mg twice daily, Eliquis 5 mg twice daily Continue midodrine 5 mg TID Continue metoprolol tartrate 25 mg 3 times daily Patient is cleared for discharge from cardiology September follow-up in the office with Dr. Blandon in 3 weeks. Nurse practitioner note has been reviewed by physician. Signing provider agrees with the documented findings, assessment, and plan of care documented by LEAD COOK as a scribe. Objective - Vital Signs Vital signs: Vital Signs Temp 98.1 F 04/10/24 08:00 Pulse 64 04/10/24 08:00 Resp 18 04/10/24 08:00 BP 125/61 04/10/24 08:00 Pulse Ox 92 L 04/10/24 08:00 FiO2 Intake & Output 04/09/24 04/10/24 04/10/24 18:59 06:59 18:59 Intake Total 840 480 118 Output Total 400 600 Balance 440 -120 118 Weight 77 kg Intake: Oral 840 480 118 Output: Urine 400 600 Other: Voiding Method Urinal Urinal Urinal # Voids 1 # Bowel Movements 1 1 - Labs CBC & Chem 7: 04/09/24 06:42 04/09/24 06:42 Labs: Abnormal Lab Results - Last 24 Hours (Table) 04/09/24 04/09/24 Range/Units 11:55 16:52 POC Glucose (mg/dL) 114 H 126 H (70-110) mg/dL Microbiology - Last 24 Hours (Table) 04/07/24 21:15 Blood Culture - Preliminary Blood
[2024-04-10 16:28] LABS: Glucose,Whole Blood 114 mg/dL (70-110)
[2024-04-10 18:11] VITALS: BP 112/70; PULSE 55; RESP 18; TEMP 97.3
--- NOTE | 2024-04-11 12:52 | P.PN ---
Subjective Progress Note Date: 04/09/24 Principal diagnosis: Reason for follow-up is UTI bacteremia Patient is a 78-year-old male past medical history significant for hypertension hyperlipidemia reflux atrial fibrillation end-stage renal disease on dialysis through the left arm AV fistula patient was brought into the hospital for evaluation of fever with initial concern for possible urinary source the patient still makes urine and did have a positive UA blood cultures came back positive with Enterobacteriaceae with no resistant pathogen. On today's evaluation that is 04/09/2024, Patient is afebrile this morning patient denies having any chest pain shortness of breath or cough, the patient is currently on room air, patient denies any abdominal pain no diarrhea no nausea no vomiting, mention feeling better. Patient white count is down to 11.2 creatinine is 5.14 blood culture repeat currently pending Objective - Vital Signs Vital signs: Vital Signs Temp 98.8 F 04/09/24 08:00 Pulse 60 04/09/24 11:38 Resp 18 04/09/24 11:38 BP 128/73 04/09/24 11:38 Pulse Ox 96 04/09/24 12:14 FiO2 Intake & Output 04/08/24 04/09/24 04/09/24 18:59 06:59 18:59 Intake Total 1160 600 Output Total 1500 600 225 Balance -340 -600 375 Weight 76.1 kg Intake: Oral 660 600 Hemodialysis 500 Output: Urine 600 225 Hemodialysis 1000 Hemodialysis Net Amount 500 Other: Voiding Method Urinal Urinal # Voids 2 1 # Bowel Movements 1 1 1 - Exam GENERAL DESCRIPTION: An elderly male lying in bed in no distress RESPIRATORY SYSTEM: Unlabored breathing , decreased breath sounds at bases HEART: S1 S2 regular rate and rhythm , ABDOMEN: Soft , no tenderness EXTREMITIES: No edema feet - Labs CBC & Chem 7: 04/09/24 06:42 04/09/24 06:42 Labs: Abnormal Lab Results - Last 24 Hours (Table) 04/08/24 04/09/24 04/09/24 Range/Units 20:32 06:42 06:42 WBC 11.2 H (3.8-10.6) k/uL RBC 3.48 L (4.30-5.90) m/uL Hgb 10.6 L (13.0-17.5) gm/dL Hct 33.3 L (39.0-53.0) % Plt Count 139 L (150-450) k/uL Neutrophils # 9.0 H (1.3-7.7) k/uL BUN 32 H (9-20) mg/dL Creatinine 5.14 H (0.66-1.25) mg/dL POC Glucose (mg/dL) 125 H (70-110) mg/dL Calcium 7.7 L (8.4-10.2) mg/dL 04/09/24 Range/Units 11:55 WBC (3.8-10.6) k/uL RBC (4.30-5.90) m/uL Hgb (13.0-17.5) gm/dL Hct (39.0-53.0) % Plt Count (150-450) k/uL Neutrophils # (1.3-7.7) k/uL BUN (9-20) mg/dL Creatinine (0.66-1.25) mg/dL POC Glucose (mg/dL) 114 H (70-110) mg/dL Calcium (8.4-10.2) mg/dL Microbiology - Last 24 Hours (Table) 04/07/24 21:15 Blood Culture - Preliminary Blood 04/06/24 00:16 Blood Culture Gram Stain - Final Blood Blood Culture - Final Citrobacter koseri 04/06/24 00:00 Blood Culture Gram Stain - Final Blood Blood Culture - Final Citrobacter koseri Molecular ID Assessment and Plan (1) Sepsis Status: Acute Code(s): A41.9 - SEPSIS, UNSPECIFIED ORGANISM SNOMED Code(s): 53588256 Plan: 1patient was in the hospital with sepsis in this patient who did have fever ta chycardia elevated white count source possible urinary as the patient will still make some urine with no other obvious clinical focus of infection patient lungs clear to auscultation chest x-ray was negative abdominal soft. 2patient did have a positive blood culture with Citrobacter source likely c ystitis as CT abdominal pelvis did not show any evidence of colitis or abscess 3patient currently being treated with Rocephin 2 g daily, blood culture will be repeated document clearance before recommending discharge antibiotics Dictation was produced using [employer] dictation software. please excuse any grammatical, word or spelling errors. Time with Patient: Less than 30
--- NOTE | 2024-04-11 12:53 | P.PN ---
Subjective Progress Note Date: 04/10/24 Principal diagnosis: Reason for follow-up is UTI bacteremia Patient is a 78-year-old male past medical history significant for hypertension hyperlipidemia reflux atrial fibrillation end-stage renal disease on dialysis through the left arm AV fistula patient was brought into the hospital for evaluation of fever with initial concern for possible urinary source the patient still makes urine and did have a positive UA blood cultures came back positive with Enterobacteriaceae with no resistant pathogen. On today's evaluation that is 04/10/2024,the patient denies any fever or any chills, patient is breathing comfortably on room air, the patient denies chest pain shortness of breath and no significant cough, patient denies abdominal pain, no nausea vomiting or diarrhea. No new lab has been obtained today blood culture repeat has been negative Objective - Vital Signs Vital signs: Vital Signs Temp 98.1 F 04/10/24 08:00 Pulse 64 04/10/24 08:00 Resp 18 04/10/24 08:00 BP 125/61 04/10/24 08:00 Pulse Ox 92 L 04/10/24 08:00 FiO2 Intake & Output 04/09/24 04/10/24 04/10/24 18:59 06:59 18:59 Intake Total 840 480 118 Output Total 400 600 Balance 440 -120 118 Weight 77 kg Intake: Oral 840 480 118 Output: Urine 400 600 Other: Voiding Method Urinal Urinal Urinal # Voids 1 # Bowel Movements 1 1 - Exam GENERAL DESCRIPTION: An elderly male lying in bed in no distress RESPIRATORY SYSTEM: Unlabored breathing , decreased breath sounds at bases HEART: S1 S2 regular rate and rhythm , ABDOMEN: Soft , no tenderness EXTREMITIES: No edema feet - Labs CBC & Chem 7: 04/09/24 06:42 04/09/24 06:42 Labs: Abnormal Lab Results - Last 24 Hours (Table) 04/09/24 04/09/24 Range/Units 11:55 16:52 POC Glucose (mg/dL) 114 H 126 H (70-110) mg/dL Microbiology - Last 24 Hours (Table) 04/07/24 21:15 Blood Culture - Preliminary Blood Assessment and Plan (1) Sepsis Status: Acute Code(s): A41.9 - SEPSIS, UNSPECIFIED ORGANISM SNOMED Code(s): 71131456 (2) UTI (urinary tract infection) Status: Acute Code(s): N39.0 - URINARY TRACT INFECTION, SITE NOT SPECIFIED SNOMED Code(s): 80691630 (3) Gram-negative bacteremia Status: Acute Code(s): R78.81 - BACTEREMIA SNOMED Code(s): 574528561279 Plan: 1patient was in the hospital with sepsis in this patient who did have fever tachycardia elevated white count source possible urinary as the patient will still make some urine with no other obvious clinical focus of infection patient lungs clear to auscultation chest x-ray was negative abdominal soft. 2patient did have a positive blood culture with Citrobacter source likely cystitis as CT abdominal pelvis did not show any evidence of colitis or abscess, repeat blood culture has been negative 3patient has shown clinical improvement on Rocephin cannot use oral Cipro because of drug interaction with amiodarone for discharge we will recommend a 10-day course of oral Ceftin prescription has been sent to the pharmacy after confirming the dose with the pharmacist also discussed with the admitting physician working on discharge Dictation was produced using [employer] dictation software. please excuse any grammatical, word or spelling errors. Time with Patient: Less than 30
[2024-04-13] MEDS ORDERED: NON FORMULARY DRUG (Buprenorphine [Butrans 10 Mcg/Hour] 10 MCG/HOUR Patch) TRANSDERM SCH (09:00)
== END 2024-04-10 18:31 | disposition home or self-care (01) | DRG 871 ==
LOC: EC 23:25 → 5NMEDONC 04-06 03:10 → 4SSUR 04-06 20:20 → 3SCARD 04-07 06:48
PROVIDERS: ADMIT Student in an Organized Health Care Education/Training Program; ATTEND Student in an Organized Health Care Education/Training Program
DX: A41.59 Other Gram-negative sepsis (principal); N18.6 End stage renal disease; I48.92 Unspecified atrial flutter; E87.20 Acidosis, unspecified; Q21.12 Patent foramen ovale; I12.0 Hypertensive chronic kidney disease with stage 5 chronic kidney disease or end stage renal disease; R65.20 Severe sepsis without septic shock; D63.1 Anemia in chronic kidney disease; E83.39 Other disorders of phosphorus metabolism; D69.59 Other secondary thrombocytopenia; Z99.2 Dependence on renal dialysis; N30.90 Cystitis, unspecified without hematuria; I25.10 Atherosclerotic heart disease of native coronary artery without angina pectoris; E78.5 Hyperlipidemia, unspecified; G62.9 Polyneuropathy, unspecified; I48.0 Paroxysmal atrial fibrillation; K21.9 Gastro-esophageal reflux disease without esophagitis; M89.8X9 Other specified disorders of bone, unspecified site; F17.200 Nicotine dependence, unspecified, uncomplicated; G89.29 Other chronic pain; J44.9 Chronic obstructive pulmonary disease, unspecified; N40.0 Benign prostatic hyperplasia without lower urinary tract symptoms; Z79.899 Other long term (current) drug therapy; Z79.01 Long term (current) use of anticoagulants; Z87.820 Personal history of traumatic brain injury
CPT/HCPCS: 36415; 71045; 74176; 80048; 80053; 81001; 83605; 83735; 83880; 84100; 84145; 84484; 85025; 85027; 85610; 85730; 87040; 87077; 87086; 87186; 87636; 90935; 93005; 94640; 94760; 96365; 96366; 96367; 99291

== ENCOUNTER 2024-04-29 10:17 | Inpatient (IN) | payer OTHER ==
[2024-04-29 10:54] LABS: Basophils # (A) 0.1 k/uL (0-0.2); Basophils % (A) 1 %; Eosinophils # (A) 0.2 k/uL (0-0.7); Eosinophils % (A) 1 %; HCT 35.9 % (39.0-53.0); HGB 11.4 gm/dL (13.0-17.5); Hypochromasia Slight; Lymphocytes # (A) 1.3 k/uL (1.0-4.8); Lymphocytes % (A) 10 %; MCH 30.8 pg (25.0-35.0); MCHC 31.8 g/dL (31.0-37.0); MCV 96.8 fL (80.0-100.0); Mean Platelet Volume 8.9; Monocytes # (A) 0.7 k/uL (0-1.0); Monocytes % (A) 6 %; Neutrophils # (A) 9.8 k/uL (1.3-7.7); Neutrophils % (A) 81 %; Platelet Count 191 k/uL (150-450); RBC 3.71 m/uL (4.30-5.90); RDW 14.8 % (11.5-15.5); WBC 12.2 k/uL (3.8-10.6)
--- NOTE | 2024-04-29 11:08 | XR ---
EXAMINATION TYPE: XR chest 2V DATE OF EXAM: 04/29/2024 COMPARISON: 04/06/2024 CLINICAL INDICATION: Male, 68 years old with history of difficulty breathing; , TECHNIQUE: XR chest 2V views of the chest. FINDINGS: The lungs are clear and there is no pneumothorax, pleural effusion, or focal pneumonia. Mild cardiom egaly but no overt failure. Osseous structures demonstrate hypertrophic and degenerative changes of t he spine. Underlying COPD suspected. Could not exclude a degree of mild venous congestion. IMPRESSION: 1. Cardiomegaly and COPD. Mild superimposed venous congestion or interstitial pneumonitis in the diff erential diagnosis.. [facility], , 04/29/2024 11:05 AM
[2024-04-29 11:16] LABS: ALT 50 U/L (4-49); AST 33 U/L (17-59); African American GFR (CKD) 8 (>60 ml/min/1.73 sqM); Albumin 4.3 g/dL (3.5-5.0); Alkaline Phosphatase 147 U/L (38-126); Anion Gap 8 mmol/L; Blood Urea Nitrogen 65 mg/dL (9-20); Calcium 9.4 mg/dL (8.4-10.2); Carbon Dioxide 25 mmol/L (22-30); Chloride 109 mmol/L (98-107); Glucose 104 mg/dL (74-99); Magnesium 1.8 mg/dL (1.6-2.3); Non-African American GFR(CKD) 7 (>60 ml/min/1.73 sqM); Phosphorus 3.9 mg/dL (2.5-4.5); Sodium 142 mmol/L (137-145); Total Bilirubin 0.7 mg/dL (0.2-1.3)
[2024-04-29 11:18] LABS: INR 1.1 (<1.2)
[2024-04-29 11:24] LABS: NT-Pro-B-Type Natriuretic Pept 5030 pg/mL
--- NOTE | 2024-04-29 12:03 | ED ---
General Adult HPI - General Chief complaint: Shortness of Breath Stated complaint: sob Time Seen by Provider: 04/29/24 10:19 Source: patient, EMS, RN notes reviewed Mode of arrival: EMS Limitations: no limitations - History of Present Illness Initial comments: 68-year-old male presents emergency department chief complaint of shortness of breath. Patient states he developed shortness of breath this morning. Does complain of some mild abdominal pain but is more of a chronic ongoing issue. Patient states he does have renal disease on dialysis scheduled to go to dialysis today he states he normally goes Monday and Fridays. He states he has no leg pain or leg swelling he states he does fact there is fluid within his lungs. Patient denies any fevers or chills he has a productive cough denies chest pain or palpitations he has felt lightheaded, dizzy. - Related Data Home Medications Medication Instructions Recorded Confirmed Cyanocobalamin [Vitamin B-12] 500 mcg PO DAILY 07/24/23 04/29/24 Omeprazole [PriLOSEC] 20 mg PO BID 07/24/23 04/29/24 Patiromer Calcium Sorbitex 1 packet PO SUTUTHSA 07/24/23 04/29/24 [Veltassa] Sodium Bicarbonate Tab 650 mg PO BID 07/24/23 04/29/24 Tamsulosin [Flomax] 0.4 mg PO HS 07/24/23 04/29/24 Acetaminophen [Tylenol Extra 1,000 mg PO TID PRN 03/26/24 04/29/24 Strength] Albuterol Sulfate [Albuterol 1 puff INHALATION RT-QID PRN 03/26/24 04/29/24 Sulfate Hfa] Apixaban [Eliquis] 5 mg PO BID 03/26/24 04/29/24 Budesonide/Formoterol Fumarate 1 puff INHALATION RT-BID 03/26/24 04/29/24 [Breyna 160-4.5 Mcg Inhaler] Buprenorphine [Butrans 10 MCG/HOUR] 1 patch TRANSDERM Q7D 03/26/24 04/29/24 Diclofenac Sodium [Diclofenac 1 applic TOPICAL QID PRN 03/26/24 04/29/24 Sodium 1%] Gabapentin [Neurontin] 200 mg PO TID 03/26/24 04/29/24 Loperamide HCl [Loperamide] 2 mg PO QID PRN 03/26/24 04/29/24 Loratadine [Claritin] 10 mg PO DAILY 03/26/24 04/29/24 Melatonin 3 mg PO HS PRN 03/26/24 04/29/24 Menthol [Biofreeze] 1 applic TOPICAL BID PRN 03/26/24 04/29/24 Phenol 1.4% [place] [Sore Throat 1 spr MUCOUS MEM Q2H PRN 03/26/24 04/29/24 [place] (Chloraseptic)] Sennosides [Senokot] 17.2 mg PO DAILY 03/26/24 04/29/24 methocarbamoL [Robaxin] 500 mg PO BID PRN 03/26/24 04/29/24 methocarbamoL [Robaxin] 500 mg PO HS 03/26/24 04/29/24 Cinacalcet HCl [Sensipar] 90 mg PO MOWEFR 04/06/24 04/29/24 Ipratropium-Albuterol Nebulize 3 ml INHALATION RT-BID PRN 04/06/24 04/29/24 [Duoneb 0.5 mg-3 mg/3 ml Soln] Diltiazem Oral [Cardizem Oral] 60 mg PO TID 04/29/24 04/29/24 Nitroglycerin Sl Tabs [Nitrostat] 0.4 mg SL Q5M PRN 04/29/24 04/29/24 Refresh Optive 0.5%-0.9% Eye Drops 1 - 2 drops BOTH EYES TID PRN 04/29/24 04/29/24 Sevelamer [Renvela] 2,400 mg PO TID-W/MEALS 04/29/24 04/29/24 Sevelamer [Renvela] 800 mg PO DAILY PRN 04/29/24 04/29/24 clindamycin HCL 300 mg PO QID 04/29/24 04/29/24 Previous Rx's Medication Instructions Recorded Amiodarone [Cordarone] 200 mg PO BID 30 Days #60 tab 04/10/24 Atorvastatin [Lipitor] 20 mg PO HS 30 Days #30 tab 04/10/24 Metoprolol Tartrate [Lopressor] 25 mg PO TID 30 Days #90 tab 04/10/24 Midodrine [ProAmatine] 5 mg PO AC-TID 30 Days #90 tab 04/10/24 Allergies Allergy/AdvReac Type Severity Reaction Status Date / Time No Known Allergies Allergy Verified 04/29/24 12:12 Review of Systems ROS Statement: Those systems with pertinent positive or pertinent negative responses have been documented in the HPI. ROS Other: All systems not noted in ROS Statement are negative. Past Medical History Past Medical History: Atrial Fibrillation, Dialysis, GERD/Reflux, Hyperlipidemia, Hypertension Additional Past Medical History / Comment(s): BPH, spinal arthritis, severe neuropathy of feet bilaterally, TBI History of Any Multi-Drug Resistant Organisms: None Reported Past Surgical History: Heart Catheterization, Hernia Repair Additional Past Surgical History / Comment(s): AV fistula placed Past Anesthesia/Blood Transfusion Reactions: No Reported Reaction Past Psychological History: No Psychological Hx Reported Smoking Status: Current every day smoker Past Alcohol Use History: None Reported Past Drug Use History: None Reported General Exam General appearance: alert, in no apparent distress Head exam: Present: atraumatic, normocephalic, normal inspection Eye exam: Present: normal appearance, PERRL, EOMI. Absent: scleral icterus, conjunctival injection, periorbital swelling ENT exam: Present: normal exam, normal oropharynx, mucous membranes moist Neck exam: Present: normal inspection. Absent: tenderness, meningismus, lymphadenopathy Respiratory exam: Present: rales. Absent: normal lung sounds bilaterally, respiratory distress, wheezes, rhonchi, stridor Cardiovascular Exam: Present: bradycardia, normal heart sounds. Absent: regular rate, normal rhythm, systolic murmur, diastolic murmur, rubs, gallop, clicks GI/Abdominal exam: Present: soft, normal bowel sounds. Absent: distended, tenderness, guarding, rebound, rigid Course Vital Signs 04/29/24 04/29/24 04/29/24 10:22 11:25 12:45 Temperature 97.8 F Pulse Rate 50 L 24 L 34 L Respiratory 20 18 18 Rate Blood Pressure 92/53 91/52 104/59 O2 Sat by Pulse 95 97 96 Oximetry EKG Findings - EKG Comments: EKG Findings:: EKG performed at 10: 33 sinus bradycardia with rate 30s, SC 275 QRS 132 QT/QTc 427/434 - EKG Results: EKG: interpreted by HERMILOD Medical Decision Making - Medical Decision Making Was pt. sent in by a medical professional or institution (LORENZO Soriano, BILINGUAL ACCOUNT MANAGER, urgent care, hospital, or shelter...) When possible be specific @ -No Did you speak to anyone other than the patient for history (EMS, parent, family, police, friend...)? What history was obtained from this source @ -No Did you review nursing and triage notes (agree or disagree)? Why? @ -I reviewed and agree with nursing and triage notes Were old charts reviewed (outside hosp., previous admission, EMS record, old EKG, old radiological studies, urgent care reports/EKG's, shelter records)? Report findings @ -No old charts were reviewed Differential Diagnosis (chest pain, altered mental status, abdominal pain women, abdominal pain men, vaginal bleeding, weakness, fever, dyspnea, syncope, headache, dizziness, GI bleed, back pain, seizure, CVA, palpatations, mental health, musculoskeletal)? @ -Differential Dyspnea: Coronary syndrome, arrhythmia, tamponade, asthma, COPD, pulmonary embolism, pneumonia, pneumothorax, pulmonary effusion, anaphylaxis, diabetic ketoacidosis, flailed chest, pulmonary contusion, diaphragmatic rupture, anemia, neuromuscular, this is not meant to be an all-inclusive list. EKG interpreted by me (3pts min.). @ -As above X-rays interpreted by me (1pt min.). @ -Chest x-ray shows pulmonary edema CT interpreted by me (1pt min.). @ -None done U/S interpreted by me (1pt. min.). @ -None done What testing was considered but not performed or refused? (CT, X-rays, U/S, labs)? Why? @ -None What meds were considered but not given or refused? Why? @ -None Did you discuss the management of the patient with other professionals (professionals i.e. LORENZO Soriano, BILINGUAL ACCOUNT MANAGER, lab, RT, psych nurse, high school social science teacher, scooper, teacher, enforcement officer, assistant case manager)? Give summary @ -Dr. Snyder regarding dialysis, hyperkalemia, Dr. Frederick for admission, Dr. Fela owen cardiology regarding bradycardia. Was smoking cessation discussed for >3mins.? @ -No Was critical care preformed (if so, how long)? @ -No Were there social determinants of health that impacted care today? How? (Homelessness, low income, unemployed, alcoholism, drug addiction, transportation, low edu. Level, literacy, decrease access to med. care, skilled nursing, rehab)? @ -No Was there de-escalation of care discussed even if they declined (Discuss DNR or withdrawal of care, Hospice)? DNR status @ -No What co-morbidities impacted this encounter? (DM, HTN, Smoking, COPD, CAD, Cancer, CVA, ARF, Chemo, Hep., AIDS, mental health diagnosis, sleep apnea, morbid obesity)? @ -ESRD Was patient admitted / discharged? Hospital course, mention meds given and route, prescriptions, significant lab abnormalities, going to OR and other pertinent info. @ -Admitted patient presented for increasing dyspnea. Patient has pulm edema, patient is on dialysis currently with hyperkalemia patient was ordered hyperkale manuel cocktail, case discussed with nephrology who ordered dialysis. Patient will be admitted for repeat laboratory studies, close telemetry monitoring and cardiology evaluation. Undiagnosed new problem with uncertain prognosis? @ -No Drug Therapy requiring intensive monitoring for toxicity (Heparin, Nitro, Insulin, Cardizem)? @ -No Were any procedures done? @ -No Diagnosis/symptom? @ -Bradycardia, dyspnea, ESRD, pulmonary edema hyperkalemia Acute, or Chronic, or Acute on Chronic? @Acute Uncomplicated (without systemic symptoms) or Complicated (systemic symptoms)? @ -Complicated Side effects of treatment? @ -No Exacerbation, Progression, or Severe Exacerbation? @ -No Poses a threat to life or bodily function? How? (Chest pain, [place], HI, pneumonia, PE, COPD, DKA, ARF, appy, cholecystitis, CVA, Diverticulitis, Homicidal, Suicidal, threat to staff... and all critical care pts) @ -Yes hyperkalemia, bradycardia, cardiac dysrhythmia causing cardiac dysfunction - Lab Data Result diagrams: 04/29/24 10:47 04/29/24 10:47 Lab Results 04/29/24 04/29/24 04/29/24 Range/Units 10:47 10:47 10:47 WBC 12.2 H (3.8-10.6) k/uL RBC 3.71 L (4.30-5.90) m/uL Hgb 11.4 L (13.0-17.5) gm/dL Hct 35.9 L (39.0-53.0) % MCV 96.8 (80.0-100.0) fL MCH 30.8 (25.0-35.0) pg MCHC 31.8 (31.0-37.0) g/dL RDW 14.8 (11.5-15.5) % Plt Count 191 (150-450) k/uL MPV 8.9 Neutrophils % 81 % Lymphocytes % 10 % Monocytes % 6 % Eosinophils % 1 % Basophils % 1 % Neutrophils # 9.8 H (1.3-7.7) k/uL Lymphocytes # 1.3 (1.0-4.8) k/uL Monocytes # 0.7 (0-1.0) k/uL Eosinophils # 0.2 (0-0.7) k/uL Basophils # 0.1 (0-0.2) k/uL Hypochromasia Slight PT 12.0 (10.0-12.5) sec INR 1.1 (<1.2) APTT 27.0 (22.0-30.0) sec Sodium 142 (137-145) mmol/L Potassium 7.7 H* (3.5-5.1) mmol/L Chloride 109 H (98-107) mmol/L Carbon Dioxide 25 (22-30) mmol/L Anion Gap 8 mmol/L BUN 65 H (9-20) mg/dL Creatinine 7.69 H* (0.66-1.25) mg/dL Est GFR (CKD-EPI)AfAm 8 (>60 ml/min/1.73 sqM) Est GFR (CKD-EPI)NonAf 7 (>60 ml/min/1.73 sqM) Glucose 104 H (74-99) mg/dL POC Glucose (mg/dL) (70-110) mg/dL POC Glu Mercerizing Range Controller ID Calcium 9.4 (8.4-10.2) mg/dL Phosphorus 3.9 (2.5-4.5) mg/dL Magnesium 1.8 (1.6-2.3) mg/dL Total Bilirubin 0.7 (0.2-1.3) mg/dL AST 33 (17-59) U/L ALT 50 H (4-49) U/L Alkaline Phosphatase 147 H (38-126) U/L Troponin I (0.000-0.034) ng/mL NT-Pro-B Natriuret Pep 5030 pg/mL Total Protein 7.0 (6.3-8.2) g/dL Albumin 4.3 (3.5-5.0) g/dL Influenza Type A (PCR) (Not Detectd) Influenza Type B (PCR) (Not Detectd) RSV (PCR) (Not Detectd) SARS-CoV-2 (PCR) (Not Detectd) 04/29/24 04/29/24 04/29/24 Range/Units 10:47 10:47 12:59 WBC (3.8-10.6) k/uL RBC (4.30-5.90) m/uL Hgb (13.0-17.5) gm/dL Hct (39.0-53.0) % MCV (80.0-100.0) fL MCH (25.0-35.0) pg MCHC (31.0-37.0) g/dL RDW (11.5-15.5) % Plt Count (150-450) k/uL MPV Neutrophils % % Lymphocytes % % Monocytes % % Eosinophils % % Basophils % % Neutrophils # (1.3-7.7) k/uL Lymphocytes # (1.0-4.8) k/uL Monocytes # (0-1.0) k/uL Eosinophils # (0-0.7) k/uL Basophils # (0-0.2) k/uL Hypochromasia PT (10.0-12.5) sec INR (<1.2) APTT (22.0-30.0) sec Sodium (137-145) mmol/L Potassium (3.5-5.1) mmol/L Chloride (98-107) mmol/L Carbon Dioxide (22-30) mmol/L Anion Gap mmol/L BUN (9-20) mg/dL Creatinine (0.66-1.25) mg/dL Est GFR (CKD-EPI)AfAm (>60 ml/min/1.73 sqM) Est GFR (CKD-EPI)NonAf (>60 ml/min/1.73 sqM) Glucose (74-99) mg/dL POC Glucose (mg/dL) 153 H (70-110) mg/dL POC Glu Mercerizing Range Controller ID [place] Hilda Calcium (8.4-10.2) mg/dL Phosphorus (2.5-4.5) mg/dL Magnesium (1.6-2.3) mg/dL Total Bilirubin (0.2-1.3) mg/dL AST (17-59) U/L ALT (4-49) U/L Alkaline Phosphatase (38-126) U/L Troponin I <0.012 (0.000-0.034) ng/mL NT-Pro-B Natriuret Pep pg/mL Total Protein (6.3-8.2) g/dL Albumin (3.5-5.0) g/dL Influenza Type A (PCR) Not Detected (Not Detectd) Influenza Type B (PCR) Not Detected (Not Detectd) RSV (PCR) Not Detected (Not Detectd) SARS-CoV-2 (PCR) Not Detected (Not Detectd) Critical Care Time Critical Care Time: Yes Total Critical Care Time: 35 Disposition Clinical Impression: End stage renal disease on dialysis, Hyperkalemia, Dyspnea, Bradycardia Disposition: ADMITTED IP TO THIS [facility] Condition: Serious Referrals: Matthew Espino MD [Primary Care Provider] - 1-2 days Time of Disposition: 12:43
[2024-04-29 12:23] LABS: Potassium 7.7 mmol/L (3.5-5.1)
[2024-04-29] MEDS: DEXTROSE 50% SYRINGE 50 ML IVP ONE (12:37)
[2024-04-29] MEDS: INSULIN REGULAR 100 UNIT/ML VIAL (IV) IV ONE (12:38)
[2024-04-29] MEDS ORDERED: ACETAMINOPHEN TAB 325 MG TAB PO PRN (12:39)
[2024-04-29] MEDS ORDERED: NALOXONE 0.4 MG/ML 1 ML VIAL IV PRN (12:39)
[2024-04-29] MEDS: SODIUM ZIRCONIUM CYCLOSILICATE 10 GM PACKET PO ONE (12:42)
[2024-04-29] MEDS: CALCIUM GLUCONATE IN NACL 1 GM in SALINE 1 100ML.BAG IVPB ONE (12:42)
[2024-04-29 13:02] LABS: Glucose,Whole Blood 153 mg/dL (70-110)
[2024-04-29] MEDS ORDERED: SEVELAMER 800 MG TAB PO PRN (14:26)
[2024-04-29] MEDS ORDERED: LOPERAMIDE 2 MG CAP PO PRN (14:26)
[2024-04-29] MEDS ORDERED: ALBUTEROL NEBULIZED 2.5 MG/3 ML INHALATION PRN (14:26)
--- NOTE | 2024-04-29 15:01 | P.HPIM ---
History of Present Illness H&P Date: 04/29/24 Patient is a 68-year-old male with a past medical history significant for end- stage renal disease on hemodialysis (MWF), atrial fibrillation on anticoagulation with Eliquis 5 mg PO twice daily, CAD, questionable COPD, peripheral neuropathy, hypertension, hyperlipidemia presents to the emergency department with dyspnea for a few hours. He states that he "hasn't been feeling good" today. He states that he's felt dyspnea like this before but he doesn't know when. He believes that he may have missed dialysis on Thursday 04/26 but is unsure. Patient is a poor historian and is unsure of his medical conditions and why he takes certain medications. Collateral was obtained from his sister via phone as well as through EMR. He states that he ambulates with a walker daily. He reports abdominal pain, frontal headache, lightheadedness/dizziness, intermittent nausea but no vomiting, and dyspnea. Denies chest pain, fever, chills. Initial chest x-ray independently interpreted: Pulmonary vascular congestion. Initial EKG independently interpreted: Bradycardia with high degree AV block, bigeminal pattern. Initial labs: WBC 12.2, hemoglobin 11.4, hematocrit 35.9, platelets 191, sodium 142, potassium 7.7, chloride 109, CO2 25, BUN 65, creatinine 7.69, glucose 104, AST 33, ALT 50, alkaline phosphatase 147, troponin X1 <0.012, BNP 5030. Initial vitals: Afebrile, bradycardic, tachypneic, hypotensive (92/53), saturating 95% on room air. ED documentation reviewed. Review of systems: Pertinent positives and negatives as discussed in HPI, a complete review of syst ems was performed and all other systems are negative. Social history: Tobacco: Current 1ppd, 50+ years Alcohol: None reported Recreational drugs: None reported Travel: None reported Sick contacts: None reported Physical examination: Vital signs reviewed. Afebrile, bradycardic, tachypneic, hypotensive. General: Nontoxic, no distress, appears stated age, well-appearing Derm: Warm, dry, intact Head: Atraumatic, normocephalic, symmetric Eyes: EOMI, anicteric sclera Mouth: No lip lesion, mucus membranes moist Cardiovascular: S1-S2 regular, bradycardic, no murmur Lungs: Bilateral inspiratory and expiratory rhonchi, no rales, no accessory muscle use Abdominal: Soft, diffuse tenderness to palpation worse on the left Extremities: No cyanosis, clubbing, or pedal edema Neuro: Alert, oriented x 3, gross neurological examination did not reveal any focal deficits. Cranial nerves II to XII grossly intact. Psych: Appropriate affect and mood Assessment and Plan: Patient is a 68-year-old male with a past medical history significant for end- stage renal disease on hemodialysis (MWF), atrial fibrillation on anticoagulation with Eliquis 5 mg PO twice daily, CAD, questionable COPD, peripheral neuropathy, hypertension, hyperlipidemia admitted for dyspnea and hyperkalemia. Active #. ESRD on hemodialysis (MWF) #. Hyperkalemia #. Bradycardia, possibly due to hyperkalemia #. High degree AV block #. Hypervolemia #. Leukocytosis, likely reactive Currently undergoing hemodialysis Repeat BMP this afternoon Hold amiodarone, Cardizem, metoprolol Cardiology consulted Nephrology consulted for management of dialysis Telemetry monitoring Continue midodrine, Renvela, sodium bicarb tabs, Veltassa Echocardiogram pending TSH pending #. Recent history of bacteremia Repeat blood cultures Chronic #. Hypertension Hold home antihypertensives due to hypotension and bradycardia #. Hyperlipidemia Continue atorvastatin 20 mg PO at bedtime #. Paroxysmal atrial fibrillation maintained on Eliquis Eliquis 5 mg PO twice daily Status post cardioversion on 03/29/2024 #. CAD #. Hyperlipidemia Continue atorvastatin #. Questionable COPD, not in exacerbation Continue albuterol inhaler, DuoNeb, Breyna #. Peripheral neuropathy Gabapentin reduced to 100 mg PO 3 times daily DVT prophylaxis: Eliquis 5 mg PO twice daily GI prophylaxis: Prilosec 20 mg PO twice daily The patient is admitted with an anticipated less than 2 midnight stay for nicole luation of dyspnea and hyperkalemia. CODE STATUS: Full code Discussed with: Sister and Dr. Frederick Anticipated discharge place: Pending clinical course A total of 65 minutes was spent on the care of this complex patient more than 50% of the time was spent in counseling and care coordination. I have seen and evaluated the patient today. Discussed with the resident and agree with the residents finding and plan as documented in the resident's note. Changes highlighted in blue font. Past Medical History Past Medical History: Atrial Fibrillation, Dialysis, GERD/Reflux, Hyperlipidemia, Hypertension Additional Past Medical History / Comment(s): BPH, spinal arthritis, severe neuropathy of feet bilaterally, TBI History of Any Multi-Drug Resistant Organisms: None Reported Past Surgical History: Heart Catheterization, Hernia Repair Additional Past Surgical History / Comment(s): AV fistula placed Past Anesthesia/Blood Transfusion Reactions: No Reported Reaction Past Psychological History: No Psychological Hx Reported Smoking Status: Current every day smoker Past Alcohol Use History: None Reported Past Drug Use History: None Reported Medications and Allergies Home Medications Medication Instructions Recorded Confirmed Type Cyanocobalamin [Vitamin B-12] 500 mcg PO DAILY 07/24/23 04/29/24 History Omeprazole [PriLOSEC] 20 mg PO BID 07/24/23 04/29/24 History Patiromer Calcium Sorbitex 1 packet PO SUTUTHSA 07/24/23 04/29/24 History [Veltassa] Sodium Bicarbonate Tab 650 mg PO BID 07/24/23 04/29/24 History Tamsulosin [Flomax] 0.4 mg PO HS 07/24/23 04/29/24 History Acetaminophen [Tylenol Extra 1,000 mg PO TID PRN 03/26/24 04/29/24 History Strength] Albuterol Sulfate [Albuterol 1 puff INHALATION RT-QID PRN 03/26/24 04/29/24 History Sulfate Hfa] Apixaban [Eliquis] 5 mg PO BID 03/26/24 04/29/24 History Budesonide/Formoterol Fumarate 1 puff INHALATION RT-BID 03/26/24 04/29/24 History [Breyna 160-4.5 Mcg Inhaler] Buprenorphine [Butrans 10 MCG/HOUR] 1 patch TRANSDERM Q7D 03/26/24 04/29/24 History Diclofenac Sodium [Diclofenac 1 applic TOPICAL QID PRN 03/26/24 04/29/24 History Sodium 1%] Gabapentin [Neurontin] 200 mg PO TID 03/26/24 04/29/24 History Loperamide HCl [Loperamide] 2 mg PO QID PRN 03/26/24 04/29/24 History Loratadine [Claritin] 10 mg PO DAILY 03/26/24 04/29/24 History Melatonin 3 mg PO HS PRN 03/26/24 04/29/24 History Menthol [Biofreeze] 1 applic TOPICAL BID PRN 03/26/24 04/29/24 History Phenol 1.4% [place] [Sore Throat 1 spr MUCOUS MEM Q2H PRN 03/26/24 04/29/24 History [place] (Chloraseptic)] Sennosides [Senokot] 17.2 mg PO DAILY 03/26/24 04/29/24 History methocarbamoL [Robaxin] 500 mg PO BID PRN 03/26/24 04/29/24 History methocarbamoL [Robaxin] 500 mg PO HS 03/26/24 04/29/24 History Cinacalcet HCl [Sensipar] 90 mg PO MOWEFR 04/06/24 04/29/24 History Ipratropium-Albuterol Nebulize 3 ml INHALATION RT-BID PRN 04/06/24 04/29/24 Hi story [Duoneb 0.5 mg-3 mg/3 ml Soln] Amiodarone [Cordarone] 200 mg PO BID 30 Days #60 tab 04/10/24 04/29/24 Rx Atorvastatin [Lipitor] 20 mg PO HS 30 Days #30 tab 04/10/24 04/29/24 Rx Metoprolol Tartrate [Lopressor] 25 mg PO TID 30 Days #90 tab 04/10/24 04/29/24 Rx Midodrine [ProAmatine] 5 mg PO AC-TID 30 Days #90 tab 04/10/24 04/29/24 Rx Diltiazem Oral [Cardizem Oral] 60 mg PO TID 04/29/24 04/29/24 History Nitroglycerin Sl Tabs [Nitrostat] 0.4 mg SL Q5M PRN 04/29/24 04/29/24 History Refresh Optive 0.5%-0.9% Eye Drops 1 - 2 drops BOTH EYES TID PRN 04/29/24 04/29/24 History Sevelamer [Renvela] 2,400 mg PO TID-W/MEALS 04/29/24 04/29/24 History Sevelamer [Renvela] 800 mg PO DAILY PRN 04/29/24 04/29/24 History clindamycin HCL 300 mg PO QID 04/29/24 04/29/24 History Allergies Allergy/AdvReac Type Severity Reaction Status Date / Time No Known Allergies Allergy Verified 12/23/24 12:12 Physical Exam Vitals: Vital Signs Temp Pulse Resp BP Pulse Ox 04/29/24 11:25 24 L 18 91/52 97 04/29/24 10:22 97.8 F 50 L 20 92/53 95 Intake and Output 04/28/24 04/29/24 04/29/24 22:59 06:59 14:59 Other: Weight 81.647 kg Results CBC & Chem 7: 04/29/24 10:47 04/29/24 10:47 Labs: Abnormal Lab Results - Last 24 Hours (Table) 04/29/24 04/29/24 Range/Units 10:47 10:47 WBC 12.2 H (3.8-10.6) k/uL RBC 3.71 L (4.30-5.90) m/uL Hgb 11.4 L (13.0-17.5) gm/dL Hct 35.9 L (39.0-53.0) % Neutrophils # 9.8 H (1.3-7.7) k/uL Potassium 7.7 H* (3.5-5.1) mmol/L Chloride 109 H (98-107) mmol/L BUN 65 H (9-20) mg/dL Creatinine 7.69 H* (0.66-1.25) mg/dL Glucose 104 H (74-99) mg/dL ALT 50 H (4-49) U/L Alkaline Phosphatase 147 H (38-126) U/L
[2024-04-29] MEDS: GABAPENTIN 100 MG CAP PO SCH (16:22)
[2024-04-29] MEDS: MIDODRINE 5 MG TAB PO SCH (17:34)
[2024-04-29] MEDS: SEVELAMER 800 MG TAB PO SCH (17:38)
[2024-04-29 18:32] LABS: Appearance,Urine Clear (Clear); Bilirubin,Urine Negative (Negative); Blood,Urine Trace (Negative); Color,Urine Colorless; Glucose,Urine (UA) Trace (Negative); Ketones,Urine Negative (Negative); Leukocyte Esterase,Urine Negative (Negative); Nitrite,Urine Negative (Negative); PH, Urine 8.5 (5.0-8.0); Protein,Urine 2+ (Negative); RBC,Urine <1 /hpf (0-5); Specific Gravity,Urine 1.007 (1.001-1.035); Urobilinogen,Urine <2.0 mg/dL (<2.0); WBC,Urine 1 /hpf (0-5)
[2024-04-29] MEDS: APIXABAN 5 MG TAB PO SCH (21:00)
[2024-04-29] MEDS: ATORVASTATIN 20 MG TAB PO SCH (21:00)
[2024-04-29] MEDS: SODIUM BICARBONATE TAB 650 MG TAB PO SCH (21:00)
[2024-04-29] MEDS: TAMSULOSIN 0.4 MG CAP.ER.24H PO SCH (21:01)
[2024-04-29] MEDS: SYMBICORT 160-4.5 MCG INHALER INHALATION SCH (21:05)
[2024-04-30] MEDS: PANTOPRAZOLE 40 MG TABLET PO SCH (06:09)
[2024-04-30 07:07] LABS: Basophils # (A) 0.1 k/uL (0-0.2); Basophils % (A) 1 %; Eosinophils # (A) 0.2 k/uL (0-0.7); Eosinophils % (A) 3 %; HGB 10.5 gm/dL (13.0-17.5); Hypochromasia Slight; Lymphocytes # (A) 1.9 k/uL (1.0-4.8); Lymphocytes % (A) 19 %; MCH 30.5 pg (25.0-35.0); MCHC 31.7 g/dL (31.0-37.0); Mean Platelet Volume 8.4; Monocytes # (A) 0.7 k/uL (0-1.0); Monocytes % (A) 7 %; Neutrophils % (A) 70 %; Platelet Count 170 k/uL (150-450); RBC 3.43 m/uL (4.30-5.90); RDW 14.5 % (11.5-15.5); WBC 9.9 k/uL (3.8-10.6)
[2024-04-30 07:19] LABS: African American GFR (CKD) 12 (>60 ml/min/1.73 sqM); Anion Gap 5 mmol/L; Blood Urea Nitrogen 34 mg/dL (9-20); Calcium 8.7 mg/dL (8.4-10.2); Carbon Dioxide 33 mmol/L (22-30); Chloride 100 mmol/L (98-107); Glucose 90 mg/dL (74-99); Non-African American GFR(CKD) 10 (>60 ml/min/1.73 sqM); Potassium 5.4 mmol/L (3.5-5.1); Sodium 138 mmol/L (137-145)
[2024-04-30] MEDS: SENNOSIDES 8.6 MG TAB PO SCH (08:49)
[2024-04-30] MEDS: NON FORMULARY DRUG (Patiromer Calcium Sorbitex [Veltassa] 8.4 GM Packet) PO SCH (08:50)
[2024-04-30] MEDS: IPRATROPIUM-ALBUTEROL 3 ML NEB INHALATION PRN (09:10)
--- NOTE | 2024-04-30 10:38 | P.NPCON ---
History of Present Illness - Reason for Consult end stage renal disease - History of Present Illness Reason for consultation: End-stage renal disease History of present illness: Patient is a 68-year-old male seen in renal consultation for end-stage renal disease. He is maintained on hemodialysis on Monday schedule. Due to holiday week, he was supposed to be getting dialysis Monday of this week. Patient missed send his treatment due to transportation. Patient came to the hospital due to shortness of breath. Potassium level was noted to be 7.7. He did undergo emergent hemodialysis yesterday and potassium level improved to 4.2 and is 5.4 this morning. Patient denies any chest pain or shortness of breath. He was bradycardic on admission which is now resolved. He is currently on room air. No vomiting or diarrhea. No fever or chills. Hemodynamically stable. Patient states he does make urine. Vital signs are stable. General: No acute distress. HEENT: Head exam is unremarkable. LUNGS: No audible rhonchi or wheezes. HEART: Rate and Rhythm are regular. ABDOMEN: Nontender. EXTREMITITES: No edema. Past Medical History Past Medical History: Atrial Fibrillation, Dialysis, GERD/Reflux, Hyperlipidemia, Hypertension Additional Past Medical History / Comment(s): BPH, spinal arthritis, severe neuropathy of feet bilaterally, TBI History of Any Multi-Drug Resistant Organisms: None Reported Past Surgical History: Heart Catheterization, Hernia Repair Additional Past Surgical History / Comment(s): AV fistula placed Past Anesthesia/Blood Transfusion Reactions: No Reported Reaction Past Psychological History: No Psychological Hx Reported Smoking Status: Current every day smoker Past Alcohol Use History: None Reported Past Drug Use History: None Reported Medications and Allergies Home Medications Medication Instructions Recorded Confirmed Type Cyanocobalamin [Vitamin B-12] 500 mcg PO DAILY 07/24/23 04/29/24 History Omeprazole [PriLOSEC] 20 mg PO BID 07/24/23 04/29/24 History Patiromer Calcium Sorbitex 1 packet PO SUTUTHSA 07/24/23 04/29/24 History [Veltassa] Sodium Bicarbonate Tab 650 mg PO BID 07/24/23 04/29/24 History Tamsulosin [Flomax] 0.4 mg PO HS 07/24/23 04/29/24 History Acetaminophen [Tylenol Extra 1,000 mg PO TID PRN 03/26/24 04/29/24 History Strength] Albuterol Sulfate [Albuterol 1 puff INHALATION RT-QID PRN 03/26/24 04/29/24 History Sulfate Hfa] Apixaban [Eliquis] 5 mg PO BID 03/26/24 04/29/24 History Budesonide/Formoterol Fumarate 1 puff INHALATION RT-BID 03/26/24 04/29/24 History [Breyna 160-4.5 Mcg Inhaler] Buprenorphine [Butrans 10 MCG/HOUR] 1 patch TRANSDERM Q7D 03/26/24 04/29/24 History Diclofenac Sodium [Diclofenac 1 applic TOPICAL QID PRN 03/26/24 04/29/24 History Sodium 1%] Gabapentin [Neurontin] 200 mg PO TID 03/26/24 04/29/24 History Loperamide HCl [Loperamide] 2 mg PO QID PRN 03/26/24 04/29/24 History Loratadine [Claritin] 10 mg PO DAILY 03/26/24 04/29/24 History Melatonin 3 mg PO HS PRN 03/26/24 04/29/24 History Menthol [Biofreeze] 1 applic TOPICAL BID PRN 03/26/24 04/29/24 History Phenol 1.4% [place] [Sore Throat 1 spr MUCOUS MEM Q2H PRN 03/26/24 04/29/24 History [place] (Chloraseptic)] Sennosides [Senokot] 17.2 mg PO DAILY 03/26/24 04/29/24 History methocarbamoL [Robaxin] 500 mg PO BID PRN 03/26/24 04/29/24 History methocarbamoL [Robaxin] 500 mg PO HS 03/26/24 04/29/24 History Cinacalcet HCl [Sensipar] 90 mg PO MOWEFR 04/06/24 04/29/24 History Ipratropium-Albuterol Nebulize 3 ml INHALATION RT-BID PRN 04/06/24 04/29/24 History [Duoneb 0.5 mg-3 mg/3 ml Soln] Amiodarone [Cordarone] 200 mg PO BID 30 Days #60 tab 04/10/24 04/29/24 Rx Atorvastatin [Lipitor] 20 mg PO HS 30 Days #30 tab 04/10/24 04/29/24 Rx Metoprolol Tartrate [Lopressor] 25 mg PO TID 30 Days #90 tab 04/10/24 04/29/24 Rx Midodrine [ProAmatine] 5 mg PO AC-TID 30 Days #90 tab 04/10/24 04/29/24 Rx Diltiazem Oral [Cardizem Oral] 60 mg PO TID 04/29/24 04/29/24 History Nitroglycerin Sl Tabs [Nitrostat] 0.4 mg SL Q5M PRN 04/29/24 04/29/24 History Refresh Optive 0.5%-0.9% Eye Drops 1 - 2 drops BOTH EYES TID PRN 04/29/24 04/29/24 History Sevelamer [Renvela] 2,400 mg PO TID-W/MEALS 04/29/24 04/29/24 History Sevelamer [Renvela] 800 mg PO DAILY PRN 04/29/24 04/29/24 History clindamycin HCL 300 mg PO QID 04/29/24 04/29/24 History Allergies Allergy/AdvReac Type Severity Reaction Status Date / Time No Known Allergies Allergy Verified 04/29/24 12:12 Physical Exam Vitals: Vital Signs Temp Pulse Pulse Resp BP BP Pulse Ox 04/30/24 09:20 68 16 04/30/24 09:13 66 18 92 L 04/30/24 08:35 98.6 F 68 18 144/75 92 L 04/30/24 04:00 97.7 F 64 18 110/65 92 L 04/30/24 02:00 18 04/30/24 00:00 59 L 18 104/63 95 04/29/24 21:30 97.7 F 61 18 117/64 96 04/29/24 21:02 59 L 18 101/63 95 04/29/24 20:40 59 L 18 90/52 93 L 04/29/24 20:00 18 04/29/24 18:11 98 F 56 L 20 133/75 96 04/29/24 17:56 97.5 F L 55 L 18 126/68 04/29/24 17:34 98 F 54 L 18 126/68 96 04/29/24 16:00 54 L 20 124/69 04/29/24 15:00 54 L 19 124/69 04/29/24 14:00 50 L 21 126/67 95 04/29/24 13:24 50 L 24 122/67 95 04/29/24 13:00 47 L 15 93/71 04/29/24 12:45 34 L 18 104/59 96 04/29/24 11:25 24 L 18 91/52 97 Intake and Output 04/29/24 04/30/24 04/30/24 22:59 06:59 14:59 Intake Total 400 128 Output Total 4400 500 Balance -4000 -372 Intake: IV 10 Invasive Line 1 10 Oral 118 Hemodialysis 400 Output: Urine 500 Hemodialysis 2400 Hemodialysis Net Amount 2000 Other: Voiding Method Toilet Urinal # Voids 200 Weight 81.647 kg 77.2 kg Results - Lab Results Most recent lab results Calcium 8.7 mg/dL (8.4-10.2) 04/30/24 06:20 Phosphorus 3.9 mg/dL (2.5-4.5) 04/29/24 10:47 Magnesium 1.8 mg/dL (1.6-2.3) 04/29/24 10:47 04/30/24 06:20 04/30/24 06:20 Assessment and Plan Plan: Assessment: 1. End-stage renal disease maintained on hemodialysis on Monday schedule. 2. Hyperkalemia secondary to chronic kidney disease and missed dialysis treatment. 3. History of A-fib. 4. Chronic kidney disease mineral bone disease maintained on Renvela. Plan: Hemodialysis today due to the hol week schedule. Renal diet. Stop bicarb. Follow-up echocardiogram. Sharda daily. Thank you for the consultation. I will continue to follow the patient with you during his hospital stay.
[2024-04-30] MEDS: SODIUM ZIRCONIUM CYCLOSILICATE 10 GM PACKET PO SCH (12:16)
--- NOTE | 2024-04-30 12:30 | P.PN ---
Subjective Progress Note Date: 04/30/24 Subjective: Patient seen and examined at bedside. No acute events overnight. Denies any chest pain, shortness of breath, abdominal pain, nausea, vomiting, urinary or bowel complaints. Pertinent positives and negatives as discussed above, a complete review of systems was performed and all other systems are negative. Vitals Signs Reviewed. General: Nontoxic, no distress, appears at stated age Derm: Warm, dry Head: Atraumatic, normocephalic, symmetric Eyes: EOMI, no lid lag, anicteric sclera Mouth: No lip lesion, mucus membranes moist Cardiovascular: S1S2 reg, no murmur Lungs: CTA bilateral, no rhonchi, no rales, no accessory muscle use Abdominal: Soft, nontender to palpation, no guarding, no appreciable organomegaly Ext: No gross muscle atrophy, no edema, no contractures Neuro: CN II-XI grossly intact, no focal neuro deficits Psych: Alert, oriented, appropriate affect Data Reviewed Today: Pertinent Labs: Hemoglobin 10.5, WBC 9.9, potassium 5.4, creatinine 5.3 Imaging: No new imaging Assessment and Plan: Active: Severe hyperkalemia ESRD on hemodialysis Hypervolemia Symptomatic bradycardia, likely secondary to hyperkalemia High-grade AV block secondary to above Paroxysmal atrial fibrillation Leukocytosis, resolved -Discussed management with nephrology, dialysis again today, continue Lokelma daily 10 g -Echocardiogram pending, cardiology consulted, pending recommendations -Telemetry -TSH within normal limits -Continue to hold off Cardizem and metoprolol and amiodarone -Continue Eliquis 5 twice daily Chronic: Recent history of bacteremia Hypertension BPH Dyslipidemia CAD COPD?, Not in exacerbation Peripheral neuropathy DVT ppx: Eliquis Code status: Full code Anticipated discharge place: Pending clinical course Anticipated discharge time: Pending clinical course Objective - Vital Signs Vital signs: Vital Signs Temp 98.7 F 04/30/24 12:04 Pulse 65 04/30/24 12:04 Resp 16 04/30/24 12:04 BP 124/65 04/30/24 12:04 Pulse Ox 91 L 04/30/24 12:04 FiO2 Intake & Output 04/29/24 04/30/24 04/30/24 18:59 06:59 18:59 Intake Total 400 128 Output Total 4400 700 Balance -4000 -572 Weight 81.647 kg 77.2 kg Intake: IV 10 Invasive Line 1 10 Oral 118 Hemodialysis 400 Output: Urine 700 Hemodialysis 2400 Hemodialysis Net Amount 2000 Other: Voiding Method Toilet Urinal # Voids 200 - Labs CBC & Chem 7: 04/30/24 06:20 04/30/24 06:20 Labs: Abnormal Lab Results - Last 24 Hours (Table) 04/29/24 04/29/24 04/30/24 Range/Units 12:59 18:12 06:20 RBC 3.43 L (4.30-5.90) m/uL Hgb 10.5 L (13.0-17.5) gm/dL Hct 33.0 L (39.0-53.0) % Potassium (3.5-5.1) mmol/L Carbon Dioxide (22-30) mmol/L BUN (9-20) mg/dL Creatinine (0.66-1.25) mg/dL POC Glucose (mg/dL) 153 H (70-110) mg/dL Urine pH 8.5 H (5.0-8.0) Urine Protein 2+ H (Negative) Urine Glucose (UA) Trace H (Negative) Urine Blood Trace H (Negative) 04/30/24 Range/Units 06:20 RBC (4.30-5.90) m/uL Hgb (13.0-17.5) gm/dL Hct (39.0-53.0) % Potassium 5.4 H (3.5-5.1) mmol/L Carbon Dioxide 33 H (22-30) mmol/L BUN 34 H (9-20) mg/dL Creatinine 5.30 H (0.66-1.25) mg/dL POC Glucose (mg/dL) (70-110) mg/dL Urine pH (5.0-8.0) Urine Protein (Negative) Urine Glucose (UA) (Negative) Urine Blood (Negative)
--- NOTE | 2024-04-30 13:55 | CA ---
Transthoracic Echo Report Name: Nolberto Ellis Age: 68 Gender: M : 1955 Exam Date: 04/30/2024 08:18 Exam Location: [facility] Ht (in): 64 Wt (lb): 180 Ordering Physician: Estelle Vang MD Attending/Referring Phys: Medical Science Liaison Layne Marie RDCS Procedure CPT: Indications: severe symptomatic bradycardia Cardiac Hx: Technical Quality: Fair Contrast 1: Total Dose (mL): Contrast 2: Total Dose (mL): MEASUREMENTS (Male / Female) Normal Values 2D ECHO LV Diastolic Diameter PLAX 5.6 cm 4.2 - 5.9 / 3.9 - 5.3 cm LV Systolic Diameter PLAX 3.8 cm IVS Diastolic Thickness 1.0 cm 0.6 - 1.0 / 0.6 - 0.9 cm LVPW Diastolic Thickness 1.3 cm 0.6 - 1.0 / 0.6 - 0.9 cm LV Relative Wall Thickness 0.4 RV Internal Dim ED PLAX 2.5 cm LA Systolic Diameter LX 4.0 cm 3.0 - 4.0 / 2.7 - 3.8 cm LV Diastolic Volume MOD 4C 81.0 cm??? LV Systolic Volume MOD 4C 42.4 cm??? LV Ejection Fraction MOD 4C 47.6 % LV Cardiac Index MOD 4C 1226.1 cm???/min???m??? LV Diastolic Length 4C 8.7 cm LV Systolic Length 4C 7.7 cm LV Diastolic Volume MOD 2C 78.4 cm??? LV Systolic Volume MOD 2C 34.7 cm??? LV Ejection Fraction MOD 2C 55.7 % LV Cardiac Index MOD 2C 1390.0 cm???/min???m??? LV Diastolic Length 2C 7.1 cm LV Systolic Length 2C 6.4 cm LA Volume 69.5 cm??? 18 - 58 / 22 - 52 cm??? LA Volume Index 35.7 cm???/m??? 16 - 28 cm???/m??? M-MODE Aortic Root Diameter MM 3.8 cm AV Cusp Separation MM 2.1 cm DOPPLER AV Peak Velocity 190.7 cm/s AV Peak Gradient 14.5 mmHg AV Mean Velocity 122.0 cm/s AV Mean Gradient 6.8 mmHg AV Velocity Time Integral 42.8 cm MV Area PHT 2.0 cm??? Mitral E Point Velocity 129.7 cm/s Mitral A Point Velocity 114.8 cm/s Mitral E to A Ratio 1.1 MV Deceleration Time 375.8 ms FINDINGS Left Ventricle Left ventricular ejection fraction is estimated at 50-55 %. Left ventricular cavity size normal. No obvious regional wall motion abnormalities. Right Ventricle Normal right ventricular size and function. Unable to estimate the right ventricular systolic pressure. Right Atrium Normal right atrial size. No right atrial thrombus or mass seen. Left Atrium Moderately increased left atrial volume. Mildly increased left atrial area. No left atrial thrombus or mass present. Mitral Valve Mitral valve thickened. Mild mitral annular calcification. Mild mitral regurgitation. Aortic Valve Trileaflet aortic valve. Thickened aortic valve without stenosis. Tricuspid Valve Structurally normal tricuspid valve. No tricuspid stenosis, regurgitation or prolapse. Pulmonic Valve Pulmonic valve not well visualized. Pericardium No pericardial or pleural effusion. Aorta Mild aortic dilatation at the level of the sinuses of valsalva 38 mm CONCLUSIONS Normal LV size and function Previewed by: Dr. Sedrick Hendrix MD (Electronically Signed) Final Date: 30 April 2024 13:54
--- NOTE | 2024-04-30 21:45 | P.CRDCN ---
History of Present Illness Consult date: 04/30/24 History of present illness: HISTORY OF PRESENTING ILLNESS 68-year-old male with past medical history of ESRD, atrial fibrillation on anticoagulation with Eliquis, CAD, peripheral neuropathy, hypertension dyslipidemia. Patient presented to the hospital because of not feeling well, generalized weakness. Patient reports that he might have missed hemodialysis and his last dialysis was on 04/26/2024 but he is unsure. Patient is overall a poor historian. He denies any chest pain chest pressure. Initial EKG shows junctional escape rhythm with PVCs. EKG shows mild pulmonary vascular congestion Labs shows hemoglobin 12.2, hemoglobin 11.4, potassium of 7.7, creatinine was 7.69. Troponin were negative, NT-proBNP 5000 REVIEW OF SYSTEMS 14 point review of system is negative except what is mentioned above in HPI. PHYSICAL EXAMINATION Vital signs reviewed. Head: Normocephalic. Eyes: Sclerae nonicteric. Neck: Brisk carotid upstroke, no jugular venous distention. Lungs: Mild crackles and rhonchi audible Heart: Regular rate and rhythm, S1-S2, no S3, no murmur or rub. Abdomen: Soft mild tenderness reported in the left side of abdomen, positive bowel sounds. Extremities: No edema, intact distal pulses. Neuro: Alert, oritented, no focal deficits. Detailed neuro exam was not performed. ASSESSMENT Bradycardia, likely junctional escape due to hyperkalemia Severe metabolic derangement and electrolyte imbalance with severe hyperkalemia ESRD with missed hemodialysis causing elevated potassium and creatinine levels Leukocytosis Echocardiogram shows LVEF 50 to 55%, No obvious regional wall motion abnormality, moderate left atrial dilatation, mild mitral regurgitation. PLAN Correct electrolytes, hemodialysis as per nephrology I anticipate that once patient's potassium improves, his bradycardia will improve Hold AV erika blocking agents and amiodarone. Discontinue amiodarone on discharge as he might be at risk of amiodarone toxicity. On discharge consider putting back low-dose beta-parvez. Hold for now Monitor hemodynamics and telemetry Jf Steinberg MD, FACC, RPVI Thank you for allowing [facility] to participate in this patient's care. Feel free to reach out in case of any followup questions. Past Medical History Past Medical History: Atrial Fibrillation, Dialysis, GERD/Reflux, Hyperlipidemia, Hypertension Additional Past Medical History / Comment(s): BPH, spinal arthritis, severe neuropathy of feet bilaterally, TBI History of Any Multi-Drug Resistant Organisms: None Reported Past Surgical History: Heart Catheterization, Hernia Repair Additional Past Surgical History / Comment(s): AV fistula placed Past Anesthesia/Blood Transfusion Reactions: No Reported Reaction Past Psychological History: No Psychological Hx Reported Smoking Status: Current every day smoker Past Alcohol Use History: None Reported Past Drug Use History: None Reported Medications and Allergies Home Medications Medication Instructions Recorded Confirmed Type Cyanocobalamin [Vitamin B-12] 500 mcg PO DAILY 07/24/23 04/29/24 History Omeprazole [PriLOSEC] 20 mg PO BID 07/24/23 04/29/24 History Patiromer Calcium Sorbitex 1 packet PO SUTUTHSA 07/24/23 04/29/24 History [Veltassa] Sodium Bicarbonate Tab 650 mg PO BID 07/24/23 04/29/24 History Tamsulosin [Flomax] 0.4 mg PO HS 07/24/23 04/29/24 History Acetaminophen [Tylenol Extra 1,000 mg PO TID PRN 03/26/24 04/29/24 History Strength] Albuterol Sulfate [Albuterol 1 puff INHALATION RT-QID PRN 03/26/24 04/29/24 History Sulfate Hfa] Apixaban [Eliquis] 5 mg PO BID 03/26/24 04/29/24 History Budesonide/Formoterol Fumarate 1 puff INHALATION RT-BID 03/26/24 04/29/24 History [Breyna 160-4.5 Mcg Inhaler] Buprenorphine [Butrans 10 MCG/HOUR] 1 patch TRANSDERM Q7D 03/26/24 04/29/24 History Diclofenac Sodium [Diclofenac 1 applic TOPICAL QID PRN 03/26/24 04/29/24 History Sodium 1%] Gabapentin [Neurontin] 200 mg PO TID 03/26/24 04/29/24 History Loperamide HCl [Loperamide] 2 mg PO QID PRN 03/26/24 04/29/24 History Loratadine [Claritin] 10 mg PO DAILY 03/26/24 04/29/24 History Melatonin 3 mg PO HS PRN 03/26/24 04/29/24 History Menthol [Biofreeze] 1 applic TOPICAL BID PRN 03/26/24 04/29/24 History Phenol 1.4% [place] [Sore Throat 1 spr MUCOUS MEM Q2H PRN 03/26/24 04/29/24 History [place] (Chloraseptic)] Sennosides [Senokot] 17.2 mg PO DAILY 03/26/24 04/29/24 History methocarbamoL [Robaxin] 500 mg PO BID PRN 03/26/24 04/29/24 History methocarbamoL [Robaxin] 500 mg PO HS 03/26/24 04/29/24 History Cinacalcet HCl [Sensipar] 90 mg PO MOWEFR 04/06/24 04/29/24 History Ipratropium-Albuterol Nebulize 3 ml INHALATION RT-BID PRN 04/06/24 04/29/24 History [Duoneb 0.5 mg-3 mg/3 ml Soln] Amiodarone [Cordarone] 200 mg PO BID 30 Days #60 tab 04/10/24 04/29/24 Rx Atorvastatin [Lipitor] 20 mg PO HS 30 Days #30 tab 04/10/24 04/29/24 Rx Metoprolol Tartrate [Lopressor] 25 mg PO TID 30 Days #90 tab 04/10/24 04/29/24 Rx Midodrine [ProAmatine] 5 mg PO AC-TID 30 Days #90 tab 04/10/24 04/29/24 Rx Diltiazem Oral [Cardizem Oral] 60 mg PO TID 04/29/24 04/29/24 History Nitroglycerin Sl Tabs [Nitrostat] 0.4 mg SL Q5M PRN 04/29/24 04/29/24 History Refresh Optive 0.5%-0.9% Eye Drops 1 - 2 drops BOTH EYES TID PRN 04/29/24 04/29/24 History Sevelamer [Renvela] 2,400 mg PO TID-W/MEALS 04/29/24 04/29/24 History Sevelamer [Renvela] 800 mg PO DAILY PRN 04/29/24 04/29/24 History clindamycin HCL 300 mg PO QID 04/29/24 04/29/24 History Allergies Allergy/AdvReac Type Severity Reaction Status Date / Time No Known Allergies Allergy Verified 04/29/24 12:12 Physical Exam Vitals: Vital Signs Temp Pulse Pulse Resp BP Pulse Ox 12/24/24 20:00 98.3 F 60 16 123/55 95 04/30/24 16:53 98.4 F 62 18 108/66 04/30/24 15:25 98.3 F 66 16 123/65 95 04/30/24 12:04 98.7 F 65 16 124/65 91 L 04/30/24 09:20 68 16 04/30/24 09:13 66 18 92 L 04/30/24 08:35 98.6 F 68 18 144/75 92 L 04/30/24 04:00 97.7 F 64 18 110/65 92 L 04/30/24 02:00 18 04/30/24 00:00 59 L 18 104/63 95 Intake and Output 04/30/24 04/30/24 04/30/24 06:59 14:59 22:59 Intake Total 246 500 Output Total 700 4600 Balance -454 -4100 Intake: IV 10 Invasive Line 1 10 Oral 236 Hemodialysis 500 Output: Urine 700 100 Hemodialysis 2500 Hemodialysis Net Amount 2000 Other: Voiding Method Toilet Toilet Urinal Urinal # Voids 200 Weight 77.2 kg Results 04/30/24 06:20 04/30/24 06:20 CBC 04/30/24 Range/Units 06:20 WBC 9.9 (3.8-10.6) k/uL RBC 3.43 L (4.30-5.90) m/uL Hgb 10.5 L (13.0-17.5) gm/dL Hct 33.0 L (39.0-53.0) % Plt Count 170 (150-450) k/uL Comprehensive Metabolic Panel 04/30/24 Range/Units 06:20 Sodium 138 (137-145) mmol/L Potassium 5.4 H (3.5-5.1) mmol/L Chloride 100 (98-107) mmol/L Carbon Dioxide 33 H (22-30) mmol/L BUN 34 H (9-20) mg/dL Creatinine 5.30 H (0.66-1.25) mg/dL Glucose 90 (74-99) mg/dL Calcium 8.7 (8.4-10.2) mg/dL Current Medications Generic Name Dose Route Start Last Admin Trade Name Freq PRN Reason Stop Dose Admin Acetaminophen 650 mg 04/29/24 12:39 Acetaminophen Tab 325 Mg Tab PO Q6HR PRN Mild Pain or Fever > 100.5 Albuterol Sulfate 2.5 mg 04/29/24 14:26 Albuterol Nebulized 2.5 Mg/3 Ml INHALATION RT-QID PRN Wheezing Albuterol/Ipratropium 3 ml 04/29/24 14:26 04/30/24 09:10 Ipratropium-Albuterol 3 Ml Neb INHALATION 3 ml RT-BID PRN Administration Shortness Of Breath Apixaban 5 mg 04/29/24 21:00 04/30/24 20:07 Apixaban 5 Mg Tab PO 5 mg BID ASMITA Administration Protocol Atorvastatin Calcium 20 mg 04/29/24 21:00 04/30/24 20:07 Atorvastatin 20 Mg Tab PO 20 mg HS ASMITA Administration Budesonide/Formoterol Fumarate 1 puff 04/29/24 20:00 04/30/24 09:10 Symbicort 160-4.5 Mcg Inhaler INHALATION 1 puff RT-BID ASMITA Administration Gabapentin 100 mg 04/29/24 16:00 04/30/24 20:07 Gabapentin 100 Mg Cap PO 100 mg TID ASMITA Administration Loperamide HCl 2 mg 04/29/24 14:26 Loperamide 2 Mg Cap PO QID PRN Diarrhea Naloxone HCl 0.2 mg 04/29/24 12:39 Naloxone 0.4 Mg/Ml 1 Ml Vial IV Q2M PRN Opioid Reversal Non-Formulary Medication 1 packet 04/30/24 09:00 04/30/24 08:50 Patiromer Calcium Sorbitex [Veltassa] PO Not Given SUTUTHSA [facility] Pantoprazole Sodium 40 mg 04/30/24 07:30 04/30/24 06:09 Pantoprazole 40 Mg Tablet PO 40 mg [id number] ASMITA Administration Senna 17.2 mg 04/30/24 09:00 04/30/24 08:49 Sennosides 8.6 Mg Tab PO 17.2 mg DAILY ASMITA Administration Sevelamer Carbonate 800 mg 04/29/24 14:26 Sevelamer 800 Mg Tab PO DAILY PRN snacks Sevelamer Carbonate 2,400 mg 04/29/24 17:30 04/30/24 16:44 Sevelamer 800 Mg Tab PO 2,400 mg TID-W/MEALS ASMITA Administration Sodium Zirconium Cyclosilicate 10 gm 04/30/24 10:45 04/30/24 12:16 Sodium Zirconium Cyclosilicate 10 Gm Packet PO 05/10/24 10:44 10 gm DAILY ASMITA Administration Tamsulosin HCl 0.4 mg 04/29/24 21:00 04/30/24 20:07 Tamsulosin 0.4 Mg Cap.Er.24h PO 0.4 mg HS ASMITA Administration Intake and Output 04/30/24 04/30/24 04/30/24 06:59 14:59 22:59 Intake Total 246 500 Output Total 700 4600 Balance -454 -4100 Intake: IV 10 Invasive Line 1 10 Oral 236 Hemodialysis 500 Output: Urine 700 100 Hemodialysis 2500 Hemodialysis Net Amount 1999 Other: Voiding Method Toilet Toilet Urinal Urinal # Voids 200 Weight 77.2 kg 04/30/24 06:20 04/30/24 06:20
[2024-05-01 09:14] LABS: Basophils # (A) 0.1 k/uL (0-0.2); Basophils % (A) 1 %; Eosinophils # (A) 0.2 k/uL (0-0.7); Eosinophils % (A) 2 %; HCT 36.7 % (39.0-53.0); HGB 11.7 gm/dL (13.0-17.5); Lymphocytes # (A) 1.4 k/uL (1.0-4.8); Lymphocytes % (A) 16 %; MCH 29.9 pg (25.0-35.0); MCHC 31.9 g/dL (31.0-37.0); MCV 93.9 fL (80.0-100.0); Mean Platelet Volume 8.3; Monocytes # (A) 0.7 k/uL (0-1.0); Monocytes % (A) 7 %; Neutrophils # (A) 6.5 k/uL (1.3-7.7); Neutrophils % (A) 73 %; Platelet Count 181 k/uL (150-450); RBC 3.91 m/uL (4.30-5.90); RDW 14.6 % (11.5-15.5)
[2024-05-01 09:43] LABS: African American GFR (CKD) 12 (>60 ml/min/1.73 sqM); Anion Gap 10 mmol/L; Blood Urea Nitrogen 26 mg/dL (9-20); Calcium 9.9 mg/dL (8.4-10.2); Carbon Dioxide 27 mmol/L (22-30); Chloride 97 mmol/L (98-107); Glucose 130 mg/dL (74-99); Magnesium 1.7 mg/dL (1.6-2.3); Non-African American GFR(CKD) 11 (>60 ml/min/1.73 sqM); Potassium 4.8 mmol/L (3.5-5.1); Sodium 134 mmol/L (137-145)
--- NOTE | 2024-05-01 09:59 | P.PN ---
Subjective Progress Note Date: 05/01/24 No new complaints. No acute events overnight. Gen: In NAD, non-toxic HEENT: normocephalic, atraumatic, hearing acuity is intant, mucous membranes moist CVS: perfusing all extremities well, no pitting edema, Respiratory: symmetric chest expansion, no accessory muscle use, GI: soft, NTTP, ND, : no suprapubic tenderness, no CVA tenderness MSK/Derm: no rashes, cyanosis Neuro: CN II-XII intact, no motor weakness, Psych: cooperative, euthymic mood, judgment and insight is intact Hospital course: Patient is a 68-year-old male with a past medical history significant for end- stage renal disease on hemodialysis (MWF), atrial fibrillation on anticoagulation with Eliquis 5 mg PO twice daily, CAD, questionable COPD, peripheral neuropathy, hypertension, hyperlipidemia presented to the emergency department with dyspnea. Initial chest x-ray independently interpreted: Pulmonary vascular congestion. Initial EKG independently interpreted: Bradycardia with high degree AV block, bigeminal pattern. Initial labs: WBC 12.2, hemoglobin 11.4, hematocrit 35.9, platelets 191, sodium 142, potassium 7.7, chloride 109, CO2 25, BUN 65, creatinine 7.69, glucose 104, AST 33, ALT 50, alkaline phosphatase 147, troponin X1 <0.012, BNP 5030. Initial vitals: Afebrile, bradycardic, tachypneic, hypotensive (92/53), saturating 95% on room air. Pt was treated for severe hyperkalemia with emergency dialysis. His bradycardia notable improved with improvement of K, and discontinuation of cardizem, metoprolol, and amiodarone. Cardiology is on consultation. Assessment and Plan: Active: Severe hyperkalemia ESRD on hemodialysis Hypervolemia Symptomatic bradycardia, likely secondary to hyperkalemia High-grade AV block secondary to above Paroxysmal atrial fibrillation Leukocytosis, resolved -Discussed management with nephrology, dialysis again today, continue Lokelma daily 10 g -Echocardiogram pending, cardiology consulted, pending recommendations -Telemetry -TSH within normal limits -Continue to hold off Cardizem and metoprolol and amiodarone -Continue Eliquis 5 twice daily Chronic: Recent history of bacteremia Hypertension BPH Dyslipidemia CAD COPD?, Not in exacerbation Peripheral neuropathy DVT ppx: Eliquis Code status: Full code Anticipated discharge place: Pending clinical course Anticipated discharge time: Pending clinical course Objective - Vital Signs Vital signs: Vital Signs Temp 98.1 F 05/01/24 04:00 Pulse 66 05/01/24 04:00 Resp 16 05/01/24 04:00 BP 115/54 05/01/24 04:00 Pulse Ox 94 L 05/01/24 04:00 FiO2 Intake & Output 04/30/24 05/01/24 05/01/24 18:59 06:59 18:59 Intake Total 746 240 Output Total 5300 250 Balance -4554 -250 240 Weight 74.7 kg Intake: IV 10 Invasive Line 1 10 Oral 236 240 Hemodialysis 500 Output: Urine 800 250 Hemodialysis 2500 Hemodialysis Net Amount 2000 Other: Voiding Method Toilet Toilet Urinal Urinal - Labs CBC & Chem 7: 05/01/24 08:59 05/01/24 08:59 Labs: Abnormal Lab Results - Last 24 Hours (Table) 05/01/24 05/01/24 Range/Units 08:59 08:59 RBC 3.91 L (4.30-5.90) m/uL Hgb 11.7 L (13.0-17.5) gm/dL Hct 36.7 L (39.0-53.0) % Sodium 134 L (137-145) mmol/L Chloride 97 L (98-107) mmol/L BUN 26 H (9-20) mg/dL Creatinine 5.24 H (0.66-1.25) mg/dL Glucose 130 H (74-99) mg/dL Microbiology - Last 24 Hours (Table) 04/29/24 13:00 Blood Culture - Preliminary Blood
--- NOTE | 2024-05-01 10:07 | P.PN ---
Subjective Patient is seen in follow-up for end-stage renal disease. He is maintained on hemodialysis on Monday schedule. Underwent hemodialysis last 2 days with 2 L ultrafiltration. Hemodynamically stable. No active complaints. Vital signs are stable. General: No acute distress. HEENT: Head exam is unremarkable. LUNGS: No audible rhonchi or wheezes. HEART: Rate and Rhythm are regular. ABDOMEN: Nontender. EXTREMITITES: No edema. Objective - Vital Signs Vital signs: Vital Signs Temp 98.1 F 05/01/24 04:00 Pulse 66 05/01/24 04:00 Resp 16 05/01/24 04:00 BP 115/54 05/01/24 04:00 Pulse Ox 94 L 05/01/24 04:00 FiO2 Intake & Output 04/30/24 05/01/24 05/01/24 18:59 06:59 18:59 Intake Total 746 240 Output Total 5300 250 Balance -4554 -250 240 Weight 74.7 kg Intake: IV 10 Invasive Line 1 10 Oral 236 240 Hemodialysis 500 Output: Urine 800 250 Hemodialysis 2500 Hemodialysis Net Amount 2000 Other: Voiding Method Toilet Toilet Urinal Urinal - Labs CBC & Chem 7: 05/01/24 08:59 05/01/24 08:59 Labs: Abnormal Lab Results - Last 24 Hours (Table) 05/01/24 05/01/24 Range/Units 08:59 08:59 RBC 3.91 L (4.30-5.90) m/uL Hgb 11.7 L (13.0-17.5) gm/dL Hct 36.7 L (39.0-53.0) % Sodium 134 L (137-145) mmol/L Chloride 97 L (98-107) mmol/L BUN 26 H (9-20) mg/dL Creatinine 5.24 H (0.66-1.25) mg/dL Glucose 130 H (74-99) mg/dL Microbiology - Last 24 Hours (Table) 04/29/24 13:00 Blood Culture - Preliminary Blood Assessment and Plan Plan: Assessment: 1. End-stage renal disease maintained on hemodialysis on Monday schedule. 2. Hyperkalemia secondary to chronic kidney disease and missed dialysis treatment. Improved postdialysis. 3. History of A-fib. 4. Chronic kidney disease mineral bone disease maintained on Renvela. Plan: Next hemodialysis Monday per his outpatient schedule. Renal diet. Preserved EF noted on echocardiogram. Lokelma daily. Resume Veltassa upon discharge.
--- NOTE | 2024-05-01 11:40 | PN ---
PROGRESS NOTE 68-year-old patient is admitted to hospital with severe metabolic derangement with hyperkalemia. The patient has end-stage renal disease, on hemodialysis with history of atrial fibrillation, admitted with bradycardia junctional probably secondary to dyselectrolytemia. PHYSICAL EXAMINATION: VITAL SIGNS: This morning, patient's heart rate is 66 beats per minute, blood pressure is 100/44, respiratory rate 18. CHEST: Reveals good air entry bilaterally. HEART: Reveals first and second heart sounds and a systolic murmur at the apex. ABDOMEN: Soft. EXTREMITIES: Did not reveal any edema. LABS: Show hemoglobin of 11.7, platelet count is 180. Potassium is 4.8, creatinine is 5.2. An echocardiogram showed normal LV systolic function. The patient's potassium was 7.7 on admission. The patient is currently on: 1. Eliquis. 2. Lipitor. ASSESSMENT: Severe bradycardia secondary to hyperkalemia. PLAN: Avoiding AV erika blockers. Continue the Eliquis. MMODL / IJN: [id number] /
--- NOTE | 2024-05-02 09:43 | P.PN ---
Subjective Patient is seen in follow-up for end-stage renal disease. He is maintained on hemodialysis on Monday schedule. Last dialysis April 30, 2024. Hemodynamically stable. No active complaints. Vital signs are stable. General: No acute distress. HEENT: Head exam is unremarkable. LUNGS: No audible rhonchi or wheezes. HEART: Rate and Rhythm are regular. ABDOMEN: Nontender. EXTREMITITES: No edema. Objective - Vital Signs Vital signs: Vital Signs Temp 98.4 F 05/02/24 04:00 Pulse 69 05/02/24 04:00 Resp 16 05/02/24 04:00 BP 117/59 05/02/24 04:00 Pulse Ox 94 L 05/02/24 04:00 FiO2 Intake & Output 05/01/24 05/02/24 05/02/24 18:59 06:59 18:59 Intake Total 1200 Output Total 375 200 Balance 825 -200 Weight 74.6 kg Intake: Oral 1200 Output: Urine 375 200 Other: Voiding Method Urinal Urinal # Voids 1 - Labs CBC & Chem 7: 05/01/24 08:59 05/01/24 08:59 Labs: Abnormal Lab Results - Last 24 Hours (Table) 05/01/24 Range/Units 08:59 Sodium 134 L (137-145) mmol/L Chloride 97 L (98-107) mmol/L BUN 26 H (9-20) mg/dL Creatinine 5.24 H (0.66-1.25) mg/dL Glucose 130 H (74-99) mg/dL Microbiology - Last 24 Hours (Table) 04/29/24 13:00 Blood Culture - Preliminary Blood Assessment and Plan Plan: Assessment: 1. End-stage renal disease maintained on hemodialysis on Monday schedule. 2. Hyperkalemia secondary to chronic kidney disease and missed dialysis treatment. Improved postdialysis. 3. History of A-fib. 4. Chronic kidney disease mineral bone disease maintained on Renvela. Plan: Next hemodialysis Monday per his outpatient schedule. Renal diet. Preserved EF noted on echocardiogram. Lokelma daily. Resume Veltassa upon discharge. Check potassium level today.
[2024-05-02 14:02] VITALS: RESP 18
--- NOTE | 2024-05-02 15:26 | P.PN ---
Subjective Progress Note Date: 05/02/24 HISTORY OF PRESENTING ILLNESS 68-year-old male with past medical history of ESRD, atrial fibrillation on anticoagulation with Eliquis, CAD, peripheral neuropathy, hypertension dyslipidemia. Patient presented to the hospital because of not feeling well, generalized weakness. Patient reports that he might have missed hemodialysis and his last dialysis was on 04/26/2024 but he is unsure. Patient is overall a poor historian. He denies any chest pain chest pressure. Initial EKG shows junctional escape rhythm with PVCs. EKG shows mild pulmonary vascular congestion Labs shows hemoglobin 12.2, hemoglobin 11.4, potassium of 7.7, creatinine was 7.69. Troponin were negative, NT-proBNP 5000 Progress note 05/02/2024 BP 124/69, heart rate 68 bpm, Hb 11.7, BUN 26, creatinine 5.24 Atrial fibrillation with heart rate 68 beats minute on telemetry. PHYSICAL EXAMINATION Vital signs reviewed. Head: Normocephalic. Eyes: Sclerae nonicteric. Neck: Brisk carotid upstroke, no jugular venous distention. Lungs: Mild crackles and rhonchi audible Heart: Irregularly irregular pulse S1-S2, no S3, no murmur or rub. Abdomen: Soft mild tenderness reported in the left side of abdomen, positive bowel sounds. Extremities: 1+ pitting edema Neuro: Alert, oritented, no focal deficits. Detailed neuro exam was not per formed. ASSESSMENT Bradycardia, likely junctional escape due to hyperkalemia Severe metabolic derangement and electrolyte imbalance with severe hyperkalemia ESRD with missed hemodialysis causing elevated potassium and creatinine levels Leukocytosis Echocardiogram shows LVEF 50 to 55%, No obvious regional wall motion abnormality, moderate left atrial dilatation, mild mitral regurgitation. PLAN Discontinue amiodarone. Do not resume on discharge Will add metoprolol succinate 25 mg daily so that patient does not have any beta-parvez withdrawals and have A-fib RVR. Patient is otherwise cleared from cardiovascular standpoint with recommended outpatient follow-up Objective - Vital Signs Vital signs: Vital Signs Temp 97.1 F L 05/02/24 12:00 Pulse 68 05/02/24 14:00 Resp 18 05/02/24 14:00 BP 110/58 05/02/24 12:00 Pulse Ox 95 05/02/24 12:00 FiO2 Intake & Output 05/01/24 05/02/24 05/02/24 18:59 06:59 18:59 Intake Total 1200 480 Output Total 375 200 275 Balance 825 -200 205 Weight 74.6 kg Intake: Oral 1200 480 Output: Urine 375 200 275 Other: Voiding Method Urinal Urinal Urinal # Voids 1 - Labs CBC & Chem 7: 05/01/24 08:59 05/02/24 09:56 Labs: Abnormal Lab Results - Last 24 Hours (Table) 05/02/24 Range/Units 09:56 Potassium 5.8 H (3.5-5.1) mmol/L Microbiology - Last 24 Hours (Table) 04/29/24 13:00 Blood Culture - Preliminary Blood
--- NOTE | 2024-05-02 16:46 | P.DS ---
Providers Date of admission: 04/29/24 12:30 Attending physician: Homero Frederick Consults: 04/29/24 12:37 Consult Physician Urgent Consulting Provider: Bernard Snyder Consult Reason/Comments: Dialysis Do you want consulting provider notified?: Yes Consult Physician Urgent Consulting Provider: Frandy Stewart Consult Reason/Comments: Bradycardia Do you want consulting provider notified?: Yes Primary care physician: Matthew Espino MD Hospital Course: Hospital Course: Patient is a 68-year-old male with a past medical history significant for end- stage renal disease on hemodialysis (MWF), atrial fibrillation on anticoagulation with Eliquis 5 mg PO twice daily, CAD, questionable COPD, peripheral neuropathy, hypertension, hyperlipidemia presented to the emergency department with dyspnea. Initial chest x-ray independently interpreted: Pulmonary vascular congestion. Initial EKG independently interpreted: Bradycardia with high degree AV block, bigeminal pattern. Initial labs: WBC 12.2, hemoglobin 11.4, hematocrit 35.9, platelets 191, sodium 142, potassium 7.7, chloride 109, CO2 25, BUN 65, creatinine 7.69, glucose 104, AST 33, ALT 50, alkaline phosphatase 147, troponin X1 <0.012, BNP 5030. Initial vitals: Afebrile, bradycardic, tachypneic, hypotensive (92/53), saturating 95% on room air. Patient was treated for severe hyperkalemia with emergency dialysis. His bradycardia notable improved with improvement of K, and discontinuation of cardizem, metoprolol, and amiodarone. Cardiology and nephrology consulted. Patient is medically optimized for discharge. Medication changes: Discontinue Cardizem, discontinue amiodarone, changed metoprolol to succinate from tartrate and decreased dose to 25 mg PO daily, decreased gabapentin to 100 mg three times daily. Final Diagnosis: #. Severe hyperkalemia #. ESRD on hemodialysis #. Hyperkalemia #. Symptomatic bradycardia, likely secondary to hyperkalemia #. High-grade AV block secondary to above #. Paroxysmal atrial fibrillation #. Leukocytosis. Resolved. #. Hypertension #. Dyslipidemia #. Questionable COPD, not in acute exacerbation #. CAD #. Peripheral neuropathy Physical examination: Vital signs reviewed General: Nontoxic, no distress, appears stated age, well-appearing Derm: Warm, dry, intact Head: Atraumatic, normocephalic, symmetric Eyes: EOMI, anicteric sclera Mouth: No lip lesion, mucus membranes moist Cardiovascular: S1-S2 regular, no murmur Lungs: CTA bilateral, no rhonchi, no rales, no accessory muscle use Abdominal: Soft, non-tender to palpation Extremities: No cyanosis, clubbing, or pedal edema Neuro: Alert, oriented x 3, gross neurological examination did not reveal any focal deficits. Cranial nerves II to XII grossly intact. I saw and evaluated the patient during the ambriz and critical portions of this encounter, and discussed the case in detail with the resident author of this note, I agree with the Assessment and Plan, and my changes, if any, are highlighted in blue. Patient Condition at Discharge: Stable Plan - Discharge Summary Discharge Rx Participant: No New Discharge Prescriptions: New Metoprolol Succinate (ER) [Toprol XL] 25 mg PO DAILY tab Continue Cyanocobalamin [Vitamin B-12] 500 mcg PO DAILY Tamsulosin [Flomax] 0.4 mg PO HS Menthol [Biofreeze] 1 applic TOPICAL BID PRN PRN Reason: Pain Acetaminophen [Tylenol Extra Strength] 1,000 mg PO TID PRN PRN Reason: Fever And/ Or Pain Sennosides [Senokot] 17.2 mg PO DAILY methocarbamoL [Robaxin] 500 mg PO HS Buprenorphine [Butrans 10 MCG/HOUR] 1 patch TRANSDERM Q7D Diclofenac Sodium [Diclofenac Sodium 1%] 1 applic TOPICAL QID PRN PRN Reason: Pain methocarbamoL [Robaxin] 500 mg PO BID PRN PRN Reason: Pain Melatonin 3 mg PO HS PRN PRN Reason: Insomnia Midodrine [ProAmatine] 5 mg PO AC-TID 30 Days #90 tab Sevelamer [Renvela] 800 mg PO DAILY PRN PRN Reason: snacks Sevelamer [Renvela] 2,400 mg PO TID-W/MEALS Nitroglycerin Sl Tabs [Nitrostat] 0.4 mg SL Q5M PRN PRN Reason: Chest Pain Refresh Optive 0.5%-0.9% Eye Drops 1 - 2 drops BOTH EYES TID PRN PRN Reason: Dry Eye(S) Sodium Bicarbonate Tab 650 mg PO BID Patiromer Calcium Sorbitex [Veltassa] 1 packet PO SUTUTHSA Omeprazole [PriLOSEC] 20 mg PO BID Albuterol Sulfate [Albuterol Sulfate Hfa] 1 puff INHALATION RT-QID PRN PRN Reason: Wheezing Loratadine [Claritin] 10 mg PO DAILY Apixaban [Eliquis] 5 mg PO BID Budesonide/Formoterol Fumarate [Breyna 160-4.5 Mcg Inhaler] 1 puff INHALATION RT-BID Phenol 1.4% [place] [Sore Throat [place] (Chloraseptic)] 1 spr MUCOUS MEM Q2H PRN PRN Reason: Sore Throat Loperamide HCl [Loperamide] 2 mg PO QID PRN PRN Reason: Diarrhea Ipratropium-Albuterol Nebulize [Duoneb 0.5 mg-3 mg/3 ml Soln] 3 ml INHALATION RT-BID PRN PRN Reason: Shortness Of Breath Atorvastatin [Lipitor] 20 mg PO HS 30 Days #30 tab Changed Gabapentin [Neurontin] 100 mg PO TID #0 Discontinued Cinacalcet HCl [Sensipar] 90 mg PO MOWEFR Metoprolol Tartrate [Lopressor] 25 mg PO TID 30 Days #90 tab Diltiazem Oral [Cardizem Oral] 60 mg PO TID Amiodarone [Cordarone] 200 mg PO BID 30 Days #60 tab clindamycin HCL 300 mg PO QID Discharge Medication List Cyanocobalamin [Vitamin B-12] 500 mcg PO DAILY 07/24/23 [History] Omeprazole [PriLOSEC] 20 mg PO BID 07/24/23 [History] Patiromer Calcium Sorbitex [Veltassa] 1 packet PO SUTUTHSA 07/24/23 [History] Sodium Bicarbonate Tab 650 mg PO BID 07/24/23 [History] Tamsulosin [Flomax] 0.4 mg PO HS 07/24/23 [History] Acetaminophen [Tylenol Extra Strength] 1,000 mg PO TID PRN 03/26/24 [History] Albuterol Sulfate [Albuterol Sulfate Hfa] 1 puff INHALATION RT-QID PRN 03/26/24 [History] Apixaban [Eliquis] 5 mg PO BID 03/26/24 [History] Budesonide/Formoterol Fumarate [Breyna 160-4.5 Mcg Inhaler] 1 puff INHALATION RT-BID 03/26/24 [History] Buprenorphine [Butrans 10 MCG/HOUR] 1 patch TRANSDERM Q7D 03/26/24 [History] Diclofenac Sodium [Diclofenac Sodium 1%] 1 applic TOPICAL QID PRN 03/26/24 [History] Loperamide HCl [Loperamide] 2 mg PO QID PRN 03/26/24 [History] Loratadine [Claritin] 10 mg PO DAILY 03/26/24 [History] Melatonin 3 mg PO HS PRN 03/26/24 [History] Menthol [Biofreeze] 1 applic TOPICAL BID PRN 03/26/24 [History] Phenol 1.4% [place] [Sore Throat [place] (Chloraseptic)] 1 spr MUCOUS MEM Q2H PRN 03/26/24 [History] Sennosides [Senokot] 17.2 mg PO DAILY 03/26/24 [History] methocarbamoL [Robaxin] 500 mg PO BID PRN 03/26/24 [History] methocarbamoL [Robaxin] 500 mg PO HS 03/26/24 [History] Ipratropium-Albuterol Nebulize [Duoneb 0.5 mg-3 mg/3 ml Soln] 3 ml INHALATION RT-BID PRN 04/06/24 [History] Atorvastatin [Lipitor] 20 mg PO HS 30 Days #30 tab 04/10/24 [Rx] Midodrine [ProAmatine] 5 mg PO AC-TID 30 Days #90 tab 04/10/24 [Rx] Nitroglycerin Sl Tabs [Nitrostat] 0.4 mg SL Q5M PRN 04/29/24 [History] Refresh Optive 0.5%-0.9% Eye Drops 1 - 2 drops BOTH EYES TID PRN 04/29/24 [History] Sevelamer [Renvela] 2,400 mg PO TID-W/MEALS 04/29/24 [History] Sevelamer [Renvela] 800 mg PO DAILY PRN 04/29/24 [History] Gabapentin [Neurontin] 100 mg PO TID #0 05/02/24 [Rx] Metoprolol Succinate (ER) [Toprol XL] 25 mg PO DAILY tab 05/02/24 [Rx] Follow up Appointment(s)/Referral(s): Matthew Espino MD [Primary Care Provider] - 1-2 days Jf Steinberg MD [Medical Doctor] - 1 Week Bernard Snyder DO [STAFF PHYSICIAN] - 1 Week Patient Instructions/Handouts: Hyperkalemia (DC) Discharge Disposition: HOME SELF-CARE
[2024-05-02 21:16] VITALS: BP 110/70; PULSE 70; TEMP 98
[2024-05-03] MEDS ORDERED: METOPROLOL SUCCINATE (ER) 25 MG TAB.ER.24H PO SCH (09:00)
== END 2024-05-02 17:59 | disposition home or self-care (01) | DRG 640 ==
LOC: EC 10:17 → 3SCARD 12:30
PROVIDERS: ADMIT Student in an Organized Health Care Education/Training Program; ATTEND Student in an Organized Health Care Education/Training Program
PROC: 5A1D70Z Performance of Urinary Filtration, Intermittent, Less than 6 Hours Per Day (ICD-10-PCS; principal; 2024-04-29)
DX: E87.5 Hyperkalemia (principal); N18.6 End stage renal disease; I12.0 Hypertensive chronic kidney disease with stage 5 chronic kidney disease or end stage renal disease; I49.2 Junctional premature depolarization; I48.0 Paroxysmal atrial fibrillation; I25.10 Atherosclerotic heart disease of native coronary artery without angina pectoris; J44.9 Chronic obstructive pulmonary disease, unspecified; G62.9 Polyneuropathy, unspecified; E78.5 Hyperlipidemia, unspecified; I44.30 Unspecified atrioventricular block; R00.1 Bradycardia, unspecified; D72.829 Elevated white blood cell count, unspecified; K21.9 Gastro-esophageal reflux disease without esophagitis; N40.0 Benign prostatic hyperplasia without lower urinary tract symptoms; F17.210 Nicotine dependence, cigarettes, uncomplicated; M89.8X9 Other specified disorders of bone, unspecified site; I49.3 Ventricular premature depolarization; E87.70 Fluid overload, unspecified; Z99.2 Dependence on renal dialysis; Z79.899 Other long term (current) drug therapy; Z79.01 Long term (current) use of anticoagulants
CPT/HCPCS: 36415; 71046; 80048; 80053; 81001; 83735; 83880; 84100; 84132; 84443; 84484; 85025; 85610; 85730; 87040; 87636; 90935; 93005; 93306; 94640; 94760; 96365; 96366; 96374; 96375; 99291

== ENCOUNTER 2024-07-31 08:55 | Inpatient (IN) | payer OTHER ==
--- NOTE | 2024-07-31 09:07 | ED ---
General Adult HPI - General Chief complaint: Chest Pain Stated complaint: Chest pain Time Seen by Provider: 07/31/24 09:00 Source: patient, EMS, RN notes reviewed, old records reviewed Mode of arrival: EMS - History of Present Illness Initial comments: This is a 68-year-old male who is a poor historian. Patient was at dialysis today and he started having chest pain and he states it lasted about 20 minutes until he took nitroglycerin and the pain has gone away and he has no pain now. Patient states he was also mildly short of breath. Patient denies any fever chills or cough. Patient has any abdominal pain patient has nausea vomiting diarrhea. Patient has a headache patient denies numbness weakness. Patient is unaware of why he has dialysis he states he does not think he has diabetes or high blood pressure. Patient states he has a lot of medications but he does not know what any of them are for. Patient did not finish his dialysis treatment today because of his chest pain and they sent him to the emergency department before it was done - Related Data Home Medications Medication Instructions Recorded Confirmed Cyanocobalamin [Vitamin B-12] 500 mcg PO DAILY 07/24/23 04/29/24 Omeprazole [PriLOSEC] 20 mg PO BID 07/24/23 04/29/24 Patiromer Calcium Sorbitex 1 packet PO SUTUTHSA 07/24/23 04/29/24 [[place]] Sodium Bicarbonate Tab 650 mg PO BID 07/24/23 04/29/24 Tamsulosin [Flomax] 0.4 mg PO HS 07/24/23 04/29/24 Acetaminophen [Tylenol Extra 1,000 mg PO TID PRN 03/26/24 04/29/24 Strength] Albuterol Sulfate [Albuterol 1 puff INHALATION RT-QID PRN 03/26/24 04/29/24 Sulfate Hfa] Apixaban [Eliquis] 5 mg PO BID 03/26/24 04/29/24 Budesonide/Formoterol Fumarate 1 puff INHALATION RT-BID 03/26/24 04/29/24 [Breyna 160-4.5 Mcg Inhaler] Buprenorphine [Butrans 10 MCG/HOUR] 1 patch TRANSDERM Q7D 03/26/24 04/29/24 Diclofenac Sodium [Diclofenac 1 applic TOPICAL QID PRN 03/26/24 04/29/24 Sodium 1%] Loperamide HCl [Loperamide] 2 mg PO QID PRN 03/26/24 04/29/24 Loratadine [Claritin] 10 mg PO DAILY 03/26/24 04/29/24 Melatonin 3 mg PO HS PRN 03/26/24 04/29/24 Menthol [Biofreeze] 1 applic TOPICAL BID PRN 03/26/24 04/29/24 Phenol 1.4% [place] [Sore Throat 1 spr MUCOUS MEM Q2H PRN 03/26/24 04/29/24 [place] (Chloraseptic)] Sennosides [Senokot] 17.2 mg PO DAILY 03/26/24 04/29/24 methocarbamoL [Robaxin] 500 mg PO BID PRN 03/26/24 04/29/24 methocarbamoL [Robaxin] 500 mg PO HS 03/26/24 04/29/24 Ipratropium-Albuterol Nebulize 3 ml INHALATION RT-BID PRN 04/06/24 04/29/24 [Duoneb 0.5 mg-3 mg/3 ml Soln] Nitroglycerin Sl Tabs [Nitrostat] 0.4 mg SL Q5M PRN 04/29/24 04/29/24 Refresh Optive 0.5%-0.9% Eye Drops 1 - 2 drops BOTH EYES TID PRN 04/29/24 04/29/24 Sevelamer [Renvela] 2,400 mg PO TID-W/MEALS 04/29/24 04/29/24 Sevelamer [Renvela] 800 mg PO DAILY PRN 04/29/24 04/29/24 Previous Rx's Medication Instructions Recorded Atorvastatin [Lipitor] 20 mg PO HS 30 Days #30 tab 04/10/24 Midodrine [ProAmatine] 5 mg PO AC-TID 30 Days #90 tab 04/10/24 Gabapentin [Neurontin] 100 mg PO TID #0 05/02/24 Metoprolol Succinate (ER) [Toprol 25 mg PO DAILY tab 05/02/24 XL] Allergies Allergy/AdvReac Type Severity Reaction Status Date / Time No Known Allergies Allergy Verified 07/31/24 09:05 Review of Systems ROS Statement: Those systems with pertinent positive or pertinent negative responses have been documented in the HPI. ROS Other: All systems not noted in ROS Statement are negative. Past Medical History Past Medical History: Atrial Fibrillation, Dialysis, GERD/Reflux, Hyper lipidemia, Hypertension Additional Past Medical History / Comment(s): BPH, spinal arthritis, severe neuropathy of feet bilaterally, TBI History of Any Multi-Drug Resistant Organisms: None Reported Past Surgical History: Heart Catheterization, Hernia Repair Additional Past Surgical History / Comment(s): AV fistula placed Past Anesthesia/Blood Transfusion Reactions: No Reported Reaction Past Psychological History: No Psychological Hx Reported Smoking Status: Current every day smoker Past Alcohol Use History: None Reported Past Drug Use History: None Reported General Exam - General Exam Comments Initial Comments: GENERAL: Patient is well-developed and well-nourished. Patient is nontoxic and well-hydr ated and is in mild distress. ENT: Neck is soft and supple. No significant lymphadenopathy is noted. Oropharynx is clear. Moist mucous membranes. Neck has full range of motion without eliciting any pain. EYES: The sclera were anicteric and conjunctiva were pink and moist. Extraocular movements were intact and pupils were equal round and reactive to light. Eyelids were unremarkable. PULMONARY: Unlabored respirations. Good breath sounds bilaterally. No audible rales rhonchi or wheezing was noted. CARDIOVASCULAR: There is a regular rate and rhythm without any murmurs gallops or rubs. ABDOMEN: Soft and nontender with normal bowel sounds. SKIN: Skin is clear with no lesions or rashes and otherwise unremarkable. NEUROLOGIC: Patient is alert and oriented x3. Cranial nerves II through XII are grossly intact. Motor and sensory are also intact. Normal speech, volume and content. Symmetrical smile. MUSCULOSKELETAL: Normal extremities with adequate strength and full range of motion. No lower extremity swelling or edema. No calf tenderness. LYMPHATICS: No significant lymphadenopathy is noted PSYCHIATRIC: Normal psychiatric evaluation. Course Vital Signs 07/31/24 07/31/24 08:57 10:00 Temperature 98 F Pulse Rate 105 H 121 H Respiratory 18 18 Rate Blood Pressure 102/76 118/97 O2 Sat by Pulse 98 98 Oximetry Medical Decision Making - Medical Decision Making EKG is interpreted by myself but EKG shows atrial fibrillation with rapid ventricular response at 136 bpm QRS of 95 QT interval is 297 QTc is 377. No ST segment elevation is noted Was pt. sent in by a medical professional or institution (, PA, [employer], urgent care, hospital, or jail...) When possible be specific @ -No Did you speak to anyone other than the patient for history (EMS, parent, family, police, friend...)? What history was obtained from this source @ -No Did you review nursing and triage notes (agree or disagree)? Why? @ -I reviewed and agree with nursing and triage notes Were old charts reviewed (outside hosp., previous admission, EMS record, old EKG, old radiological studies, urgent care reports/EKG's, jail records)? Report findings @ -No old charts were reviewed Differential Diagnosis? @ -Differential Chest Pain: Stable Angina, Unstable Angina, STEMI, NSTEMI Aortic Dissection, Pneumothorax, Musculoskeletal, Esophageal Spasm GERD, Cholecystitis, Pancreatitis, Zoster, this is not meant to be an all-inclusive list. EKG interpreted by me (3pts min.). @ -As above X-rays interpreted by me (1pt min.). @ -Chest x-ray shows no acute dramality CT interpreted by me (1pt min.). @ -None done U/S interpreted by me (1pt. min.). @ -None done What testing was considered but not performed or refused? (CT, X-rays, U/S, labs)? Why? @ -None What meds were considered but not given or refused? Why? @ -None Did you discuss the management of the patient with other professionals (professionals i.e. , [facility], D[employer], lab, RT, psych nurse, road worker, inspection manager, teacher, protective officer, casework supervisor)? Give summary @ -I spoke with sound physicians he agreed to admit the patient admit the patient I wrote admitting orders Was smoking cessation discussed for >3mins.? @ -No Was critical care preformed (if so, how long)? @ -35 minutes Were there social determinants of health that impacted care today? How? (Homelessness, low income, unemployed, alcoholism, drug addiction, transportation, low edu. Level, literacy, decrease access to med. care, retirement, rehab)? @ -No Was there de-escalation of care discussed even if they declined (Discuss DNR or withdrawal of care, Hospice)? DNR status @ -No What co-morbidities impacted this encounter? (DM, HTN, Smoking, COPD, CAD, Cancer, CVA, ARF, Chemo, Hep., AIDS, mental health diagnosis, sleep apnea, morbid obesity)? @ -None Was patient admitted / discharged? Hospital course, mention meds given and route, prescriptions, significant lab abnormalities, going to OR and other pertinent info. @ -Patient states the nitroglycerin prior to arrival helped with his chest pain to the point where he had no chest pain at all on arrival. Patient continues to be chest pain-free in the emergency department. Patient received aspirin in the emergency department but we held the Nitropaste because the patient's blood pressure was slightly low. Patient was in A-fib so he was placed on Cardizem Undiagnosed new problem with uncertain prognosis? @ -No Drug Therapy requiring intensive monitoring for toxicity (Heparin, Nitro, Insulin, Cardizem)? @ -No Were any procedures done? @ -No Diagnosis/symptom? @ -Chest pain Acute, or Chronic, or Acute on Chronic? @ -Acute Uncomplicated (without systemic symptoms) or Complicated (systemic symptoms)? @ -Complicated Side effects of treatment? @ -No Exacerbation, Progression, or Severe Exacerbation? @ -No Poses a threat to life or bodily function? How? (Chest pain, [place], [place], pneumonia, PE, COPD, DKA, ARF, appy, cholecystitis, CVA, Diverticulitis, Homicidal, Suicidal, threat to staff... and all critical care pts) @ -Yes this could be secondary to an [place] and that can lead to endorgan dysfunction Diagnosis/symptom? @ -A-fib with rapid ventricular response Acute, or Chronic, or Acute on Chronic? @ -Acute Uncomplicated (without systemic symptoms) or Complicated (systemic symptoms)? @ -Complicated Side effects of treatment? @ -None Exacerbation, Progression, or Severe Exacerbation] @ -No Poses a threat to life or bodily function? @ -Yes this can lead to poor perfusion and endorgan dysfunction - Lab Data Result diagrams: 07/31/24 09:14 07/31/24 09:14 Lab Results 07/31/24 07/31/24 07/31/24 Range/Units 09:14 09:14 09:14 WBC 9.9 (3.8-10.6) k/uL RBC 4.27 L (4.30-5.90) m/uL Hgb 12.9 L (13.0-17.5) gm/dL Hct 39.2 (39.0-53.0) % MCV 91.8 (80.0-100.0) fL MCH 30.1 (25.0-35.0) pg MCHC 32.8 (31.0-37.0) g/dL RDW 14.1 (11.5-15.5) % Plt Count 151 (150-450) k/uL MPV 8.0 Neutrophils % 75 % Lymphocytes % 15 % Monocytes % 6 % Eosinophils % 2 % Basophils % 0 % Neutrophils # 7.5 (1.3-7.7) k/uL Lymphocytes # 1.4 (1.0-4.8) k/uL Monocytes # 0.6 (0-1.0) k/uL Eosinophils # 0.2 (0-0.7) k/uL Basophils # 0.0 (0-0.2) k/uL PT 11.7 (10.0-12.5) sec INR 1.1 (<1.2) APTT 34.0 H (22.0-30.0) sec Sodium 138 (137-145) mmol/L Potassium 4.1 (3.5-5.1) mmol/L Chloride 98 (98-107) mmol/L Carbon Dioxide 32 H (22-30) mmol/L Anion Gap 8 mmol/L BUN 29 H (9-20) mg/dL Creatinine 4.00 H (0.66-1.25) mg/dL Est GFR (CKD-EPI)AfAm 17 (>60 ml/min/1.73 sqM) Est GFR (CKD-EPI)NonAf 15 (>60 ml/min/1.73 sqM) Glucose 118 H (74-99) mg/dL Calcium 9.0 (8.4-10.2) mg/dL Magnesium 1.7 (1.6-2.3) mg/dL Total Bilirubin 0.6 (0.2-1.3) mg/dL AST 17 (17-59) U/L ALT 21 (4-49) U/L Alkaline Phosphatase 136 H (38-126) U/L Troponin I (0.000-0.034) ng/mL Total Protein 7.0 (6.3-8.2) g/dL Albumin 4.2 (3.5-5.0) g/dL 07/31/24 Range/Units 09:14 WBC (3.8-10.6) k/uL RBC (4.30-5.90) m/uL Hgb (13.0-17.5) gm/dL Hct (39.0-53.0) % MCV (80.0-100.0) fL MCH (25.0-35.0) pg MCHC (31.0-37.0) g/dL RDW (11.5-15.5) % Plt Count (150-450) k/uL MPV Neutrophils % % Lymphocytes % % Monocytes % % Eosinophils % % Basophils % % Neutrophils # (1.3-7.7) k/uL Lymphocytes # (1.0-4.8) k/uL Monocytes # (0-1.0) k/uL Eosinophils # (0-0.7) k/uL Basophils # (0-0.2) k/uL PT (10.0-12.5) sec INR (<1.2) APTT (22.0-30.0) sec Sodium (137-145) mmol/L Potassium (3.5-5.1) mmol/L Chloride (98-107) mmol/L Carbon Dioxide (22-30) mmol/L Anion Gap mmol/L BUN (9-20) mg/dL Creatinine (0.66-1.25) mg/dL Est GFR (CKD-EPI)AfAm (>60 ml/min/1.73 sqM) Est GFR (CKD-EPI)NonAf (>60 ml/min/1.73 sqM) Glucose (74-99) mg/dL Calcium (8.4-10.2) mg/dL Magnesium (1.6-2.3) mg/dL Total Bilirubin (0.2-1.3) mg/dL AST (17-59) U/L ALT (4-49) U/L Alkaline Phosphatase (38-126) U/L Troponin I <0.012 (0.000-0.034) ng/mL Total Protein (6.3-8.2) g/dL Albumin (3.5-5.0) g/dL Disposition Clinical Impression: Chest pain, Atrial fibrillation with rapid ventricular response Disposition: ADMITTED IP TO THIS [facility] Time of Disposition: 09:56
[2024-07-31] MEDS: ASPIRIN 81 MG PO STA (09:17)
[2024-07-31] MEDS: SODIUM CHLORIDE 0.9% 500 ML 500 ML IV STA (09:19)
[2024-07-31 09:32] LABS: Basophils % (A) 0 %; Eosinophils # (A) 0.2 k/uL (0-0.7); Eosinophils % (A) 2 %; HCT 39.2 % (39.0-53.0); HGB 12.9 gm/dL (13.0-17.5); Lymphocytes # (A) 1.4 k/uL (1.0-4.8); Lymphocytes % (A) 15 %; MCH 30.1 pg (25.0-35.0); MCHC 32.8 g/dL (31.0-37.0); MCV 91.8 fL (80.0-100.0); Monocytes # (A) 0.6 k/uL (0-1.0); Monocytes % (A) 6 %; Neutrophils # (A) 7.5 k/uL (1.3-7.7); Neutrophils % (A) 75 %; Platelet Count 151 k/uL (150-450); RBC 4.27 m/uL (4.30-5.90); RDW 14.1 % (11.5-15.5); WBC 9.9 k/uL (3.8-10.6)
[2024-07-31 09:39] LABS: INR 1.1 (<1.2); Prothrombin Time 11.7 sec (10.0-12.5)
--- NOTE | 2024-07-31 09:51 | XR ---
EXAMINATION TYPE: XR chest 2V DATE OF EXAM: 07/31/2024 9:43 AM COMPARISON: Chest radiographs from 04/29/2024 TECHNIQUE: XR chest 2V Frontal and lateral views of the chest. CLINICAL INDICATION:Male, 68 years old with history of Chest Pain; FINDINGS: Lungs/Pleura: There is no evidence of pleural effusion or pneumothorax. Similar bibasilar opacities. No focal consolidation. Pulmonary vascularity: Mild pulmonary vascular congestion. Heart/mediastinum: Cardiomediastinal silhouette is enlarged and stable. Musculoskeletal: Multiple level degenerative disc disease changes seen throughout the spine. IMPRESSION: Cardiomegaly with mild pulmonary vascular congestion. Similar bibasilar opacities favored to represen t atelectasis versus less likely infiltrates. [facility], , 07/31/2024 9:49 AM
[2024-07-31 09:52] LABS: ALT 21 U/L (4-49); AST 17 U/L (17-59); African American GFR (CKD) 17 (>60 ml/min/1.73 sqM); Albumin 4.2 g/dL (3.5-5.0); Alkaline Phosphatase 136 U/L (38-126); Anion Gap 8 mmol/L; Blood Urea Nitrogen 29 mg/dL (9-20); Carbon Dioxide 32 mmol/L (22-30); Chloride 98 mmol/L (98-107); Glucose 118 mg/dL (74-99); Magnesium 1.7 mg/dL (1.6-2.3); Non-African American GFR(CKD) 15 (>60 ml/min/1.73 sqM); Potassium 4.1 mmol/L (3.5-5.1); Sodium 138 mmol/L (137-145); Total Bilirubin 0.6 mg/dL (0.2-1.3)
[2024-07-31] MEDS ORDERED: NITROGLYCERIN SL TABS 0.4 MG TAB SUBLINGUAL PRN ×2 (09:56→11:59)
[2024-07-31] MEDS: DILTIAZEM DRIP BOLUS FROM BAG 1 MG SOLN IV ONE (11:22)
[2024-07-31] MEDS: DILTIAZEM 125 MG in SODIUM CHLORIDE 0.9% 100 ML IV SCH (11:22)
[2024-07-31] MEDS: NITROGLYCERIN OINT 1 INCH/GM PACKET TOPICAL STA (11:24)
--- NOTE | 2024-07-31 11:30 | P.NPCON ---
History of Present Illness - Reason for Consult end stage renal disease - History of Present Illness Reason for consultation: End-stage renal disease History of present illness: Patient is a 68-year-old male seen in renal consultation for end-stage renal disease. Patient was seen and examined in the emergency room. Patient went to hemodialysis this morning and his heart rate was noted to be high. Patient was also complaining of shortness of breath and he does smoke cigarettes. Patient's heart rate came back down and he started hemodialysis and completed little less than 2 hours of dialysis treatment today. He then complained of chest pain and was given nitro. He describes the pain as sharp pain in the mid chest which she states is now resolved. He was subsequently sent to the hospital for further care. He is currently on 2 L nasal cannula. No fever. Patient does have history of A-fib. He denies history of diabetes or coronary artery disease. Vital signs are stable. General: No acute distress. HEENT: Head exam is unremarkable. On nasal cannula. LUNGS: No audible rhonchi or wheezes. HEART: Rate and Rhythm are regular. ABDOMEN: Nontender. EXTREMITITES: No edema. Past Medical History Past Medical History: Atrial Fibrillation, Dialysis, GERD/Reflux, Hyperlipidemia, Hypertension Additional Past Medical History / Comment(s): BPH, spinal arthritis, severe neuropathy of feet bilaterally, TBI History of Any Multi-Drug Resistant Organisms: None Reported Past Surgical History: Heart Catheterization, Hernia Repair Additional Past Surgical History / Comment(s): AV fistula placed Past Anesthesia/Blood Transfusion Reactions: No Reported Reaction Past Psychological History: No Psychological Hx Reported Smoking Status: Current every day smoker Past Alcohol Use History: None Reported Past Drug Use History: None Reported Medications and Allergies Home Medications Medication Instructions Recorded Confirmed Type Cyanocobalamin [Vitamin B-12] 500 mcg PO DAILY 07/24/23 04/29/24 History Omeprazole [PriLOSEC] 20 mg PO BID 07/24/23 04/29/24 History Patiromer Calcium Sorbitex 1 packet PO SUTUTHSA 07/24/23 04/29/24 History [Veltassa] Sodium Bicarbonate Tab 650 mg PO BID 07/24/23 04/29/24 History Tamsulosin [Flomax] 0.4 mg PO HS 07/24/23 04/29/24 History Acetaminophen [Tylenol Extra 1,000 mg PO TID PRN 03/26/24 04/29/24 History Strength] Albuterol Sulfate [Albuterol 1 puff INHALATION RT-QID PRN 03/26/24 04/29/24 History Sulfate Hfa] Apixaban [Eliquis] 5 mg PO BID 03/26/24 04/29/24 History Budesonide/Formoterol Fumarate 1 puff INHALATION RT-BID 03/26/24 04/29/24 History [Breyna 160-4.5 Mcg Inhaler] Buprenorphine [Butrans 10 MCG/HOUR] 1 patch TRANSDERM Q7D 03/26/24 04/29/24 History Diclofenac Sodium [Diclofenac 1 applic TOPICAL QID PRN 03/26/24 04/29/24 History Sodium 1%] Loperamide HCl [Loperamide] 2 mg PO QID PRN 03/26/24 04/29/24 History Loratadine [Claritin] 10 mg PO DAILY 03/26/24 04/29/24 History Melatonin 3 mg PO HS PRN 03/26/24 04/29/24 History Menthol [Biofreeze] 1 applic TOPICAL BID PRN 03/26/24 04/29/24 History Phenol 1.4% [place] [Sore Throat 1 spr MUCOUS MEM Q2H PRN 03/26/24 04/29/24 H istory [place] (Chloraseptic)] Sennosides [Senokot] 17.2 mg PO DAILY 03/26/24 04/29/24 History methocarbamoL [Robaxin] 500 mg PO BID PRN 03/26/24 04/29/24 History methocarbamoL [Robaxin] 500 mg PO HS 03/26/24 04/29/24 History Ipratropium-Albuterol Nebulize 3 ml INHALATION RT-BID PRN 04/06/24 04/29/24 History [Duoneb 0.5 mg-3 mg/3 ml Soln] Atorvastatin [Lipitor] 20 mg PO HS 30 Days #30 tab 04/10/24 04/29/24 Rx Midodrine [ProAmatine] 5 mg PO AC-TID 30 Days #90 tab 04/10/24 04/29/24 Rx Nitroglycerin Sl Tabs [Nitrostat] 0.4 mg SL Q5M PRN 04/29/24 04/29/24 History Refresh Optive 0.5%-0.9% Eye Drops 1 - 2 drops BOTH EYES TID PRN 04/29/24 04/29/24 History Sevelamer [Renvela] 2,400 mg PO TID-W/MEALS 04/29/24 04/29/24 History Sevelamer [Renvela] 800 mg PO DAILY PRN 04/29/24 04/29/24 History Gabapentin [Neurontin] 100 mg PO TID #0 05/02/24 04/29/24 Rx Metoprolol Succinate (ER) [Toprol 25 mg PO DAILY tab 05/02/24 Rx XL] Allergies Allergy/AdvReac Type Severity Reaction Status Date / Time No Known Allergies Allergy Verified 07/31/24 09:05 Physical Exam Vitals: Vital Signs Temp Pulse Resp BP Pulse Ox 07/31/24 10:00 121 H 18 118/97 98 07/31/24 08:57 98 F 105 H 18 102/76 98 Intake and Output 07/30/24 07/31/24 07/31/24 22:59 06:59 14:59 Other: Weight 72.575 kg Results - Lab Results Most recent lab results Calcium 9.0 mg/dL (8.4-10.2) 07/31/24 09:14 Magnesium 1.7 mg/dL (1.6-2.3) 07/31/24 09:14 07/31/24 09:14 07/31/24 09:14 Assessment and Plan Plan: Assessment: 1. End-stage renal disease maintained on hemodialysis on Monday schedule. 2. A-fib with RVR maintained on Cardizem drip. Cardiology following. 3. Chronic kidney disease mineral bone disease. 4. Tobacco abuse. Plan: Patient had about an hour and 45 minutes of dialysis treatment this morning. Currently in A-fib. Will assess for need for treatment tomorrow. Check phosphorus level. Thank you for the consultation. I will continue to follow the patient with you during his hospital stay.
[2024-07-31] MEDS ORDERED: ALBUTEROL HFA INHALER INHALATION PRN (11:59)
[2024-07-31] MEDS ORDERED: IPRATROPIUM-ALBUTEROL 3 ML NEB INHALATION PRN (11:59)
--- NOTE | 2024-07-31 12:03 | P.HPIM ---
History of Present Illness H&P Date: 07/31/24 History of Presenting Illness: Patient is a pleasant 68-year-old male with a past medical history of paroxysmal atrial fibrillation status post cardioversion on anticoagulation with Eliquis, hypertension, hyperlipidemia, and ESRD on hemodialysis Monday/Monday/Fridays. Patient presented to the emergency department with a chief complaint of chest pain. Patient was undergoing hemodialysis when he developed pain/pressure to midsternal chest accompanied by shortness of breath. Patient describes this pain as a heaviness and states he was unable to catch his breath. He denies having any cough or congestion, palpitations, fevers/chills/diaphoresis, nausea or vomiting, or experiencing any numbness/tingling/weakness/swelling in his extremities. He reports his dialysis was immediately stopped and he was approximately an hour and 1/2 to 2 hours into session. He states he was given nitroglycerin which resulted in improvement of chest pain after approximately 20 minutes. Upon arrival to our facility, patient reports chest pain has fully resolved and he currently denies having any complaints. On arrival to our facility patient underwent evaluation in the emergency department. Vital signs on arrival show blood pressure 102/76, heart rate 105, respiratory rate 18, temp 98.0 F, and SpO2 of 98% on 2 L. EKG was completed showing atrial fibrillation with RVR to 136 bpm with T wave inversion in lateral leads I and aVL. Chest x- ray showing cardiomegaly with mild pulmonary vascular congestion and similar bibasilar opacities favored to represent atelectasis. Patient was given aspirin 324 mg p.o. x 1 dose in the emergency department along with Cardizem bolus fo llowed by infusion. He was admitted under our services with consultation to cardiology and nephrology. Review of systems: Pertinent positives and negatives as discussed in HPI, a complete review of systems was performed and all other systems are negative. Physical exam: Vital signs reviewed and stable. General: Nontoxic, no distress and appears stated age. Derm: Skin warm and dry, normal coloration for ethnicity. Head: Atraumatic, normocephalic and symmetric. Eyes: EOM's intact, no lid lag, and anicteric sclera Mouth: no lip lesions, mucus membranes moist Cardiovascular: Irregularly irregular , no murmur, positive posterior tibial pulses bilaterally, and cap refill < 2 seconds. AV fistula left upper extremity. Lungs: Respirations even, regular, and unlabored on room air. Lungs CTA bilaterally, no rhonchi, no rales, no wheezing, and no accessory muscle usage. Abdominal: soft, nontender to palpation, no guarding, no appreciable organomegaly Ext: ROM intact. No gross muscle atrophy, no edema, no contractures Neuro: Speech clear, face symmetrical and CN II-XII grossly intact with no noted focal neuro deficits Psych: Alert and oriented to person, place, time, and situation. Appropriate and pleasant affect. Assessment and Plan of Care: Chest pain, rule out acute coronary event Atrial fibrillation with RVR Hypertension Hyperlipidemia -Cardiology consulted, appreciate recommendations -Continue Cardizem infusion at 5 mg/h, may titrate up to 15 mg/h for goal ventricular rate of 80-100. -Telemetry monitoring -Trend troponins -Cardiac diet, NPO at midnight -Continue cardiac medication regimen with Eliquis 5 mg twice daily, aspirin 81 mg daily, atorvastatin 20 mg nightly, and metoprolol increased from 25 mg daily to 25 mg twice daily. -Lipid profile with a.m. labs and order placed for TSH with reflex free T4. -Echocardiogram recently completed 04/29/2024 showing a preserved EF of 50 to 55%, will defer to cardiology if they want to repeat echocardiogram at this t mitch. ESRD on hemodialysis -Patient underwent dialysis today but was unable to complete full treatment session secondary to development of chest pain. Nephrology consulted for management of dialysis. The patient is admitted with an anticipated less than 2 midnight stay for evaluation of chest pain CODE STATUS: Full code DVT prophylaxis: Eliquis Discussed with: Patient, RN, and ED physician Anticipated discharge date: 24 to [address]: Home Patient was seen independently by Nurse Practitioner. This document was prepared using [employer] dictation software. Please allow for errors in carburizer while rare they do occur. Harpal Kaufman NP rendered care for this patient independently, reviewed the findings and plan as documented in the note above and agree with plan. I did not physically speak with or examine the patient on this date. Past Medical History Past Medical History: Atrial Fibrillation, Dialysis, GERD/Reflux, Hyperlipidemia, Hypertension Additional Past Medical History / Comment(s): BPH, spinal arthritis, severe neuropathy of feet bilaterally, TBI History of Any Multi-Drug Resistant Organisms: None Reported Past Surgical History: Heart Catheterization, Hernia Repair Additional Past Surgical History / Comment(s): AV fistula placed Past Anesthesia/Blood Transfusion Reactions: No Reported Reaction Past Psychological History: No Psychological Hx Reported Smoking Status: Current every day smoker Past Alcohol Use History: None Reported Past Drug Use History: None Reported Medications and Allergies Home Medications Medication Instructions Recorded Confirmed Type Cyanocobalamin [Vitamin B-12] 500 mcg PO DAILY 07/24/23 07/31/24 History Omeprazole [PriLOSEC] 20 mg PO BID 07/24/23 07/31/24 History Patiromer Calcium Sorbitex 1 packet PO SUTUTHSA 07/24/23 07/31/24 History [Veltassa] Sodium Bicarbonate Tab 650 mg PO BID 07/24/23 07/31/24 History Tamsulosin [Flomax] 0.4 mg PO HS 07/24/23 07/31/24 History Acetaminophen [Tylenol Extra 1,000 mg PO TID PRN 03/26/24 07/31/24 History Strength] Albuterol Sulfate [Albuterol 1 puff INHALATION RT-QID PRN 03/26/24 07/31/24 History Sulfate Hfa] Apixaban [Eliquis] 5 mg PO BID 03/26/24 07/31/24 History Buprenorphine [Butrans 10 MCG/HOUR] 1 patch TRANSDERM Q7D 03/26/24 07/31/24 History Diclofenac Sodium [Diclofenac 1 applic TOPICAL QID PRN 03/26/24 07/31/24 History Sodium 1%] Loperamide HCl [Loperamide] 2 mg PO QID PRN 03/26/24 07/31/24 History Loratadine [Claritin] 10 mg PO DAILY 03/26/24 07/31/24 History Melatonin 3 mg PO HS PRN 03/26/24 07/31/24 History Menthol [Biofreeze] 1 applic TOPICAL BID PRN 03/26/24 07/31/24 History Sennosides [Senokot] 17.2 mg PO DAILY 03/26/24 07/31/24 History methocarbamoL [Robaxin] 500 mg PO BID PRN 03/26/24 07/31/24 History methocarbamoL [Robaxin] 500 mg PO HS 03/26/24 07/31/24 History Ipratropium-Albuterol Nebulize 3 ml INHALATION RT-BID PRN 04/06/24 07/31/24 History [Duoneb 0.5 mg-3 mg/3 ml Soln] Atorvastatin [Lipitor] 20 mg PO HS 30 Days #30 tab 04/10/24 07/31/24 Rx Midodrine [ProAmatine] 5 mg PO AC-TID 30 Days #90 tab 04/10/24 07/31/24 Rx Nitroglycerin Sl Tabs [Nitrostat] 0.4 mg SL Q5M PRN 04/29/24 07/31/24 History Refresh Optive 0.5%-0.9% Eye Drops 1 - 2 drops BOTH EYES TID PRN 04/29/24 07/31/24 History Sevelamer [Renvela] 2,400 mg PO TID-W/MEALS 04/29/24 07/31/24 History Sevelamer [Renvela] 800 mg PO DAILY PRN 04/29/24 07/31/24 History Gabapentin [Neurontin] 100 mg PO TID #0 05/02/24 07/31/24 Rx Ammonium Lactate Lotion 1 applic TOPICAL DAILY 07/31/24 07/31/24 History [Lac-Hydrin 12% Lotion] Budesonide/Formoterol Fumarate 2 puff INHALATION RT-BID 07/31/24 07/31/24 History [Symbicort 160-4.5 Mcg Inhaler] Metoprolol Tartrate [Lopressor] 12.5 mg PO BID 07/31/24 07/31/24 History Sodium Zirconium Cyclosilicate 10 gram PO DAILY 07/31/24 07/31/24 History [Lokelma] Allergies Allergy/AdvReac Type Severity Reaction Status Date / Time No Known Allergies Allergy Verified 07/31/24 13:44 Physical Exam Vitals: Vital Signs Temp Pulse Resp BP Pulse Ox 07/31/24 08:57 98 F 105 H 18 102/76 98 Intake and Output 07/30/24 07/31/24 07/31/24 22:59 06:59 14:59 Other: Weight 72.575 kg Results CBC & Chem 7: 07/31/24 09:14 07/31/24 09:14 Labs: Abnormal Lab Results - Last 24 Hours (Table) 07/31/24 07/31/24 07/31/24 Range/Units 09:14 09:14 09:14 RBC 4.27 L (4.30-5.90) m/uL Hgb 12.9 L (13.0-17.5) gm/dL APTT 34.0 H (22.0-30.0) sec Carbon Dioxide 32 H (22-30) mmol/L BUN 29 H (9-20) mg/dL Creatinine 4.00 H (0.66-1.25) mg/dL Glucose 118 H (74-99) mg/dL Alkaline Phosphatase 136 H (38-126) U/L
[2024-07-31] MEDS ORDERED: METOPROLOL SUCCINATE (ER) 25 MG TAB.ER.24H PO SCH (12:15)
--- NOTE | 2024-07-31 12:27 | P.CRDCN ---
History of Present Illness History of present illness: HISTORY OF PRESENT ILLNESS: This is a 68-year-old male with a past medical history significant for hypertension, hyperlipidemia, atrial fibrillation, and end-stage renal disease on hemodialysis. Patient follows in the office with Dr. Blandon. We have been asked to see the patient in consultation for chest pain. Patient examined at the bedside in the emergency room. Patient was at hemodialysis today when he started to have chest pain and shortness of breath. He was unable to finish his dialysis treatment and he was sent to the emergency room for further evaluation. Patient was found to be in A-fib with RVR and was started on IV Cardizem. At the time of examination he denies any chest pain or pressure. DIAGNOSTICS: - EKG reveals A-fib with RVR. - Chest xray cardiomegaly mild pulmonary vascular congestion. Similar bibasilar opacities favored to represent atelectasis versus like likely infiltrates - Laboratory data: WBC 9.9. Hemoglobin 12.9. Platelet count 151. Sodium 138. Potassium 4.1. BUN 29. Creatinine 4.0. Magnesium 1.7. Troponin negative x 1 - Current home cardiac medication list has not been updated at the time of dictation - Most recent echocardiogram obtained in April 2024 revealed ejection fraction 50 to 55%, no obvious regional wall motion abnormalities, mild MR - Patient underwent TONEY and cardioversion March 2024. Post cardioversion patient had significant pause and bradycardia with heart rates in the 20s and 30s. He required external pacing, atropine, and epinephrine. - Patient underwent Lexiscan stress test in July 2023 revealing manage defect involving the apical lateral myocardium with no definite reversible area of ischemia REVIEW OF SYSTEMS: At the time of my exam: CONSTITUTIONAL: Denies fever or chills. HEENT: Denies blurred vision, vision changes, or eye pain. Denies hemoptysis CARDIOVASCULAR: Denies chest pain. Denies orthopnea. Denies PND. Denies palpitations RESPIRATORY: Denies shortness of breath. GASTROINTESTINAL: Denies abdominal pain. Denies nausea or vomiting. HEMATOLOGIC: Denies bleeding disorders. GENITOURINARY: Denies any blood in urine. SKIN: Denies pruitis. Denies rash. PHYSICAL EXAM: VITAL SIGNS: Reviewed. GENERAL: Well-developed in no acute distress. HEENT: Head is normocephalic. Pupils are equal, round. Sclerae anicteric. Mucous membranes of the mouth are moist. Neck supple. No JVD or thyromegaly LUNGS: Respirations even and unlabored. Lungs essentially clear to auscultation bilaterally. HEART: Tachycardic. Irregular rate and rhythm. S1 and S2 heard. ABDOMEN: Soft. Nondistended. Nontender. EXTREMITIES: Normal range of motion. No clubbing or cyanosis. Peripheral pulses intact. No lower extremity edema NEUROLOGIC: Awake and alert. Oriented x 3. ASSESSMENT: Chest pain, troponin negative x 1 Paroxysmal atrial fibrillation with RVR History of TONEY and cardioversion, March 2024 with subsequent significant bradycardia and pauses requiring external pacing, atropine, and epinephrine End-stage renal disease on hemodialysis Hypertension Hyperlipidemia PLAN: No need to repeat echocardiogram at this time as this was completed in April 2024 Trend troponins Resume anticoagulation with Eliquis Begin metoprolol tartrate 25 mg twice a day Continue IV Cardizem Continue telemetry monitoring Further recommendations pending patient course Nurse practitioner note has been reviewed by physician. Signing provider agrees with the documented findings, assessment, and plan of care documented by CARDIAC CATH TECH as a scribe. Past Medical History Past Medical History: Atrial Fibrillation, Dialysis, GERD/Reflux, Hyperlipidemia, Hypertension Additional Past Medical History / Comment(s): BPH, spinal arthritis, severe neur opathy of feet bilaterally, TBI History of Any Multi-Drug Resistant Organisms: None Reported Past Surgical History: Heart Catheterization, Hernia Repair Additional Past Surgical History / Comment(s): AV fistula placed Past Anesthesia/Blood Transfusion Reactions: No Reported Reaction Past Psychological History: No Psychological Hx Reported Smoking Status: Current every day smoker Past Alcohol Use History: None Reported Past Drug Use History: None Reported Medications and Allergies Home Medications Medication Instructions Recorded Confirmed Type Cyanocobalamin [Vitamin B-12] 500 mcg PO DAILY 07/24/23 04/29/24 History Omeprazole [PriLOSEC] 20 mg PO BID 07/24/23 04/29/24 History Patiromer Calcium Sorbitex 1 packet PO SUTUTHSA 07/24/23 04/29/24 History [Veltassa] Sodium Bicarbonate Tab 650 mg PO BID 07/24/23 04/29/24 History Tamsulosin [Flomax] 0.4 mg PO HS 07/24/23 04/29/24 History Acetaminophen [Tylenol Extra 1,000 mg PO TID PRN 03/26/24 04/29/24 History Strength] Albuterol Sulfate [Albuterol 1 puff INHALATION RT-QID PRN 03/26/24 04/29/24 History Sulfate Hfa] Apixaban [Eliquis] 5 mg PO BID 03/26/24 04/29/24 History Budesonide/Formoterol Fumarate 1 puff INHALATION RT-BID 03/26/24 04/29/24 History [Breyna 160-4.5 Mcg Inhaler] Buprenorphine [Butrans 10 MCG/HOUR] 1 patch TRANSDERM Q7D 03/26/24 04/29/24 History Diclofenac Sodium [Diclofenac 1 applic TOPICAL QID PRN 03/26/24 04/29/24 History Sodium 1%] Loperamide HCl [Loperamide] 2 mg PO QID PRN 03/26/24 04/29/24 History Loratadine [Claritin] 10 mg PO DAILY 03/26/24 04/29/24 History Melatonin 3 mg PO HS PRN 03/26/24 04/29/24 History Menthol [Biofreeze] 1 applic TOPICAL BID PRN 03/26/24 04/29/24 History Phenol 1.4% [place] [Sore Throat 1 spr MUCOUS MEM Q2H PRN 03/26/24 04/29/24 History [place] (Chloraseptic)] Sennosides [Senokot] 17.2 mg PO DAILY 03/26/24 04/29/24 History methocarbamoL [Robaxin] 500 mg PO BID PRN 03/26/24 04/29/24 History methocarbamoL [Robaxin] 500 mg PO HS 03/26/24 04/29/24 History Ipratropium-Albuterol Nebulize 3 ml INHALATION RT-BID PRN 04/06/24 04/29/24 History [Duoneb 0.5 mg-3 mg/3 ml Soln] Atorvastatin [Lipitor] 20 mg PO HS 30 Days #30 tab 04/10/24 04/29/24 Rx Midodrine [ProAmatine] 5 mg PO AC-TID 30 Days #90 tab 04/10/24 04/29/24 Rx Nitroglycerin Sl Tabs [Nitrostat] 0.4 mg SL Q5M PRN 04/29/24 04/29/24 History Refresh Optive 0.5%-0.9% Eye Drops 1 - 2 drops BOTH EYES TID PRN 04/29/24 04/29/24 History Sevelamer [Renvela] 2,400 mg PO TID-W/MEALS 04/29/24 04/29/24 History Sevelamer [Renvela] 800 mg PO DAILY PRN 04/29/24 04/29/24 History Gabapentin [Neurontin] 100 mg PO TID #0 05/02/24 04/29/24 Rx Metoprolol Succinate (ER) [Toprol 25 mg PO DAILY tab 05/02/24 Rx XL] Allergies Allergy/AdvReac Type Severity Reaction Status Date / Time No Known Allergies Allergy Verified 07/31/24 09:05 Physical Exam Vitals: Vital Signs Temp Pulse Resp BP Pulse Ox 07/31/24 11:00 142 H 18 90/72 98 07/31/24 10:00 121 H 18 118/97 98 07/31/24 08:57 98 F 105 H 18 102/76 98 Intake and Output 07/30/24 07/31/24 07/31/24 22:59 06:59 14:59 Other: Weight 72.575 kg Results 07/31/24 09:14 07/31/24 09:14 Cardiac Enzymes 07/31/24 07/31/24 Range/Units 09:14 09:14 AST 17 (17-59) U/L Troponin I <0.012 (0.000-0.034) ng/mL Coagulation 07/31/24 Range/Units 09:14 PT 11.7 (10.0-12.5) sec APTT 34.0 H (22.0-30.0) sec CBC 07/31/24 Range/Units 09:14 WBC 9.9 (3.8-10.6) k/uL RBC 4.27 L (4.30-5.90) m/uL Hgb 12.9 L (13.0-17.5) gm/dL Hct 39.2 (39.0-53.0) % Plt Count 151 (150-450) k/uL Comprehensive Metabolic Panel 07/31/24 Range/Units 09:14 Sodium 138 (137-145) mmol/L Potassium 4.1 (3.5-5.1) mmol/L Chloride 98 (98-107) mmol/L Carbon Dioxide 32 H (22-30) mmol/L BUN 29 H (9-20) mg/dL Creatinine 4.00 H (0.66-1.25) mg/dL Glucose 118 H (74-99) mg/dL Calcium 9.0 (8.4-10.2) mg/dL AST 17 (17-59) U/L ALT 21 (4-49) U/L Alkaline Phosphatase 136 H (38-126) U/L Total Protein 7.0 (6.3-8.2) g/dL Albumin 4.2 (3.5-5.0) g/dL Current Medications Generic Name Dose Route Start Last Admin Trade Name Freq PRN Reason Stop Dose Admin Acetaminophen 1,000 mg 07/31/24 11:59 Acetaminophen Tab 500 Mg Tab PO TID PRN Fever and/ or Pain Albuterol/Ipratropium 3 ml 07/31/24 11:59 Ipratropium-Albuterol 3 Ml Neb INHALATION RT-BID PRN Shortness Of Breath Apixaban 5 mg 07/31/24 21:00 Apixaban 5 Mg Tab PO BID [facility] Protocol Atorvastatin Calcium 20 mg 07/31/24 21:00 Atorvastatin 20 Mg Tab PO HS [facility] Budesonide/Formoterol Fumarate 1 puff 07/31/24 20:00 Symbicort 160-4.5 Mcg Inhaler INHALATION RT-BID [facility] Gabapentin 100 mg 07/31/24 16:00 Gabapentin 100 Mg Cap PO TID [facility] Diltiazem HCl 125 mg/ Sodium 125 mls @ 5 mls/hr 07/31/24 11:15 07/31/24 11:22 Chloride IV 5 mg/hr .Q24H [facility] 5 mls/hr Administration 5 MG/HR Metoprolol Tartrate 25 mg 07/31/24 12:15 Metoprolol Tartrate 25 Mg Tab PO BID [facility] Nitroglycerin 0.4 mg 07/31/24 09:56 Nitroglycerin Sl Tabs 0.4 Mg Tab SUBLINGUAL Q5M PRN Chest Pain Pantoprazole Sodium 40 mg 08/01/24 07:30 Pantoprazole 40 Mg Tablet PO AC-BRKFST [facility] Sodium Bicarbonate 650 mg 07/31/24 21:00 Sodium Bicarbonate Tab 650 Mg Tab PO BID [facility] Tamsulosin HCl 0.4 mg 07/31/24 21:00 Tamsulosin 0.4 Mg Cap.Er.24h PO HS [facility] Intake and Output 07/30/24 07/31/24 07/31/24 22:59 06:59 14:59 Other: Weight 72.575 kg Patient Weight 08/01/24 06:59 Weight 72.575 kg 07/31/24 09:14 07/31/24 09:14
[2024-07-31] MEDS: METOPROLOL TARTRATE 25 MG TAB PO SCH (12:57)
[2024-07-31] MEDS ORDERED: NITROGLYCERIN OINT 1 INCH/GM PACKET TOPICAL SCH (13:00)
[2024-07-31] MEDS ORDERED: SEVELAMER 800 MG TAB PO PRN (15:45)
[2024-07-31] MEDS: NON FORMULARY DRUG (Buprenorphine [Butrans 10 Mcg/Hour] 10 MCG/HOUR Patch) TRANSDERM SCH (17:12)
[2024-07-31] MEDS: SEVELAMER 800 MG TAB PO SCH (17:13)
[2024-07-31] MEDS: GABAPENTIN 100 MG CAP PO SCH (17:13)
[2024-07-31] MEDS: HEPARIN SODIUM 1,000 UN/ML (10ML VL) IV ONE (18:50)
[2024-07-31] MEDS: HEPARIN SOD,PORK IN 0.45% NACL 25,000 UNIT in 0.45% NACL 1 250ML.BAG IV SCH (18:52)
[2024-07-31] MEDS: TAMSULOSIN 0.4 MG CAP.ER.24H PO SCH (20:53)
[2024-07-31] MEDS: ACETAMINOPHEN TAB 500 MG TAB PO PRN (20:53)
[2024-07-31] MEDS: SODIUM BICARBONATE TAB 650 MG TAB PO SCH (20:53)
[2024-07-31] MEDS: ATORVASTATIN 20 MG TAB PO SCH (20:53)
[2024-07-31] MEDS: APIXABAN 5 MG TAB PO SCH (20:54)
[2024-07-31] MEDS: SYMBICORT 160-4.5 MCG INHALER INHALATION SCH (21:08)
[2024-07-31] MEDS: methocarbamoL 500 MG TAB PO SCH (21:09)
[2024-08-01 01:26] LABS: HGB 11.9 gm/dL (13.0-17.5); MCH 30.2 pg (25.0-35.0); MCHC 32.1 g/dL (31.0-37.0); MCV 94.2 fL (80.0-100.0); Mean Platelet Volume 8.1; Platelet Count 159 k/uL (150-450); RBC 3.93 m/uL (4.30-5.90); RDW 14.4 % (11.5-15.5); WBC 12.5 k/uL (3.8-10.6)
[2024-08-01 01:42] LABS: ALT 19 U/L (4-49); AST 27 U/L (17-59); African American GFR (CKD) 12 (>60 ml/min/1.73 sqM); Albumin 3.7 g/dL (3.5-5.0); Alkaline Phosphatase 118 U/L (38-126); Anion Gap 7 mmol/L; Blood Urea Nitrogen 42 mg/dL (9-20); Calcium 9.1 mg/dL (8.4-10.2); Carbon Dioxide 31 mmol/L (22-30); Chloride 101 mmol/L (98-107); Glucose 103 mg/dL (74-99); Magnesium 1.9 mg/dL (1.6-2.3); Non-African American GFR(CKD) 10 (>60 ml/min/1.73 sqM); Potassium 4.7 mmol/L (3.5-5.1); Sodium 139 mmol/L (137-145); Total Bilirubin 0.5 mg/dL (0.2-1.3); Total Protein 6.2 g/dL (6.3-8.2)
[2024-08-01] MEDS: PANTOPRAZOLE 40 MG TABLET PO SCH (06:49)
[2024-08-01] MEDS: SODIUM ZIRCONIUM CYCLOSILICATE 10 GM PACKET PO SCH (07:53)
[2024-08-01] MEDS: ASPIRIN 81 MG PO SCH (07:54)
[2024-08-01] MEDS ORDERED: ASPIRIN 325 MG TAB PO SCH (09:00)
--- NOTE | 2024-08-01 09:09 | P.PN ---
Subjective Progress Note Date: 08/01/24 The patient is a pleasant 68-year-old gentleman who is known to our service from before with a past medical history significant for end-stage renal disease currently on dialysis as well as paroxysmal atrial fibrillation and multiple comorbid conditions who was admitted from the dialysis center because of chest discomfort but the patient does not recall having any chest discomfort. He was noted to be in A-fib with RVR. He was transferred to the selective units. The troponin came to be mildly elevated August 01, 2024 Patient was seen and evaluated this morning. He is currently asymptomatic. He denies any chest pain now or before. He underwent a stress test in the year of 2023 came in to be unremarkable for ischemia. The most recent echo from April 2024 showed normal LV systolic function. He is in A-fib with RVR and he is currently on Cardizem at 5 mg/h. He is also on beta-parvez. He is on heparin IV. The physical examination is remarkable for irregular rhythm with a systolic murmur at the right upper sternal border with bilateral expiratory wheezing and no edema was noted in the lower extremities ASSESSMENT: Chest discomfort but the patient denies any chest discomfort now or before Paroxysmal atrial fibrillation with RVR History of TONEY and cardioversion, March 2024 with subsequent significant bradycardia and pauses requiring external pacing, atropine, and epinephrine End-stage renal disease on hemodialysis Hypertension Hyperlipidemia PLAN: Increase the dose of beta-parvez Try to wean the patient from Cardizem Continue heparin for now Obtain an echo, limited, to rule out pericardial effusion giving the history of dialysis Follow-up with the patient Objective - Vital Signs Vital signs: Vital Signs Temp 98.4 F 08/01/24 07:49 Pulse 133 H 08/01/24 07:49 Resp 16 08/01/24 07:49 BP 103/66 08/01/24 07:49 Pulse Ox 95 08/01/24 07:49 FiO2 Intake & Output 07/31/24 08/01/24 08/01/24 18:59 06:59 18:59 Intake Total 32.917 147.642 10 Output Total 625 200 Balance 32.917 -477.358 -190 Weight 72.575 kg 74.2 kg Intake: IV 10 Invasive Line 1 10 Intake, IV Titration 32.917 147.642 0 Amount Diltiazem 125 mg In 32.7 84.792 0 Sodium Chloride 0.9% 100 ml @ 5 MG/HR 5 mls/hr IV .Q24H [facility] [place] Rx#:[id number] Heparin Sod,Pork in 0.45% 62.85 NaCl 25,000 unit In 0.45 % NaCl 1 250ml.bag @ 12 UNITS/KG/HR 8.709 mls/hr IV .Q24H [facility] [place] Rx#: [id number] Output: Urine 625 200 Other: Voiding Method Urinal Urinal - Labs CBC & Chem 7: 08/01/24 01:09 08/01/24 01:09 Labs: Abnormal Lab Results - Last 24 Hours (Table) 07/31/24 07/31/24 07/31/24 Range/Units 09:14 09:14 09:14 WBC (3.8-10.6) k/uL RBC 4.27 L (4.30-5.90) m/uL Hgb 12.9 L (13.0-17.5) gm/dL Hct (39.0-53.0) % APTT 34.0 H (22.0-30.0) sec Carbon Dioxide 32 H (22-30) mmol/L BUN 29 H (9-20) mg/dL Creatinine 4.00 H (0.66-1.25) mg/dL Glucose 118 H (74-99) mg/dL Alkaline Phosphatase 136 H (38-126) U/L Troponin I (0.000-0.034) ng/mL Total Protein (6.3-8.2) g/dL 07/31/24 08/01/24 08/01/24 Range/Units 15:10 01:07 01:09 WBC 12.5 H (3.8-10.6) k/uL RBC 3.93 L (4.30-5.90) m/uL Hgb 11.9 L (13.0-17.5) gm/dL Hct 37.0 L (39.0-53.0) % APTT 42.6 H (22.0-30.0) sec Carbon Dioxide (22-30) mmol/L BUN (9-20) mg/dL Creatinine (0.66-1.25) mg/dL Glucose (74-99) mg/dL Alkaline Phosphatase (38-126) U/L Troponin I 0.072 H* (0.000-0.034) ng/mL Total Protein (6.3-8.2) g/dL 08/01/24 08/01/24 Range/Units 01:09 08:31 WBC (3.8-10.6) k/uL RBC (4.30-5.90) m/uL Hgb (13.0-17.5) gm/dL Hct (39.0-53.0) % APTT 45.3 H (22.0-30.0) sec Carbon Dioxide 31 H (22-30) mmol/L BUN 42 H (9-20) mg/dL Creatinine 5.49 H (0.66-1.25) mg/dL Glucose 103 H (74-99) mg/dL Alkaline Phosphatase (38-126) U/L Troponin I (0.000-0.034) ng/mL Total Protein 6.2 L (6.3-8.2) g/dL
[2024-08-01] MEDS: METOPROLOL TARTRATE 25 MG TAB PO STA (09:14)
--- NOTE | 2024-08-01 10:02 | P.PN ---
Subjective Patient is seen in follow-up for end-stage renal disease. On Cardizem drip for A-fib. Metoprolol dose increased. Denies any chest pain or shortness of breath. Vital signs are stable. General: No acute distress. HEENT: Head exam is unremarkable. On nasal cannula. LUNGS: No audible rhonchi or wheezes. HEART: Irregular rate and rhythm. ABDOMEN: Nontender. EXTREMITITES: No edema. Objective - Vital Signs Vital signs: Vital Signs Temp 98.4 F 08/01/24 07:49 Pulse 133 H 08/01/24 07:49 Resp 16 08/01/24 07:49 BP 103/66 08/01/24 07:49 Pulse Ox 95 08/01/24 07:49 FiO2 Intake & Output 07/31/24 08/01/24 08/01/24 18:59 06:59 18:59 Intake Total 32.917 147.642 10 Output Total 625 200 Balance 32.917 -477.358 -190 Weight 72.575 kg 74.2 kg Intake: IV 10 Invasive Line 1 10 Intake, IV Titration 32.917 147.642 0 Amount Diltiazem 125 mg In 32.917 84.792 0 Sodium Chloride 0.9% 100 ml @ 5 MG/HR 5 mls/hr IV .Q24H [facility] Rx#:[id number] Heparin Sod,Pork in 0.45% 62.85 NaCl 25,000 unit In 0.45 % NaCl 1 250ml.bag @ 12 UNITS/KG/HR 8.709 mls/hr IV .Q24H [facility] Rx#: [id number] Output: Urine 625 200 Other: Voiding Method Urinal Urinal - Labs CBC & Chem 7: 08/01/24 01:09 08/01/24 01:09 Labs: Abnormal Lab Results - Last 24 Hours (Table) 07/31/24 08/01/24 08/01/24 Range/Units 15:10 01:07 01:09 WBC 12.5 H (3.8-10.6) k/uL RBC 3.93 L (4.30-5.90) m/uL Hgb 11.9 L (13.0-17.5) gm/dL Hct 37.0 L (39.0-53.0) % APTT 42.6 H (22.0-30.0) sec Carbon Dioxide (22-30) mmol/L BUN (9-20) mg/dL Creatinine (0.66-1.25) mg/dL Glucose (74-99) mg/dL Troponin I 0.072 H* (0.000-0.034) ng/mL Total Protein (6.3-8.2) g/dL 08/01/24 08/01/24 Range/Units 01:09 08:31 WBC (3.8-10.6) k/uL RBC (4.30-5.90) m/uL Hgb (13.0-17.5) gm/dL Hct (39.0-53.0) % APTT 45.3 H (22.0-30.0) sec Carbon Dioxide 31 H (22-30) mmol/L BUN 42 H (9-20) mg/dL Creatinine 5.49 H (0.66-1.25) mg/dL Glucose 103 H (74-99) mg/dL Troponin I (0.000-0.034) ng/mL Total Protein 6.2 L (6.3-8.2) g/dL Assessment and Plan Plan: Assessment: 1. End-stage renal disease maintained on hemodialysis on Monday schedule. 2. A-fib with RVR maintained on Cardizem drip. Cardiology following. Meto prolol dose increased. 3. 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 Phosphorus level 3.4 dated July 31, 2024. 4. Tobacco abuse. Plan: Hemodialysis tomorrow.
[2024-08-01 10:34] LABS: Chol/HDL Ratio 2.98 Ratio; LDL Cholesterol,Calculated 26.3 mg/dL (0.0-131.0)
--- NOTE | 2024-08-01 13:35 | P.PN ---
Subjective Progress Note Date: 08/01/24 Hospital Course: Patient is a pleasant 68-year-old male with a past medical history of paroxysmal atrial fibrillation status post cardioversion on anticoagulation with Eliquis, hypertension, hyperlipidemia, and ESRD on hemodialysis Monday/Monday/Fridays. Patient presented to the emergency department with a chief complaint of chest pain. Patient was undergoing hemodialysis when he developed pain/pressure to midsternal chest accompanied by shortness of breath. Patient describes this kate n as a heaviness and states he was unable to catch his breath. He denies having any cough or congestion, palpitations, fevers/chills/diaphoresis, nausea or vomiting, or experiencing any numbness/tingling/weakness/swelling in his extremities. He reports his dialysis was immediately stopped and he was approximately an hour and 1/2 to 2 hours into session. He states he was given nitroglycerin which resulted in improvement of chest pain after approximately 20 minutes. Upon arrival to our facility, patient reports chest pain has fully resolved and he currently denies having any complaints. On arrival to our facility patient underwent evaluation in the emergency department. Vital signs on arrival show blood pressure 102/76, heart rate 105, respiratory rate 18, temp 98.0 F, and SpO2 of 98% on 2 L. EKG was completed showing atrial fibrillation with RVR to 136 bpm with T wave inversion in lateral leads I and aVL. Chest x- ray showing cardiomegaly with mild pulmonary vascular congestion and similar bibasilar opacities favored to represent atelectasis. Patient was given aspirin 324 mg p.o. x 1 dose in the emergency department along with Cardizem bolus followed by infusion. He was admitted under our services with consultation to cardiology and nephrology. Cardiology following, try to wean Cardizem drip, patient was started on heparin drip, limited echo ordered to rule out pericardial effusion. Lopressor increased to 50 mg twice daily Hemodialysis 08/02 Pertinent Imaging: EKG reviewed personally showed atrial flutter heart rate 72, QTc 429 Subjective: Seen and examined at bedside, denies any chest pain or discomfort today, no shortness of breath Pertinent positives and negatives as discussed above, a complete review of systems was performed and all other systems are negative. Vitals Signs Reviewed. General: Nontoxic, no distress and appears stated age. Derm: Skin warm and dry, normal coloration for ethnicity. Head: Atraumatic, normocephalic and symmetric. Eyes: EOM's intact, no lid lag, and anicteric sclera Mouth: no lip lesions, mucus membranes moist Cardiovascular: Irregularly irregular , no murmur, positive posterior tibial pulses bilaterally, and cap refill < 2 seconds. AV fistula left upper extremity. Lungs: Respirations even, regular, and unlabored on room air. Lungs CTA bilaterally, no rhonchi, no rales, no wheezing, and no accessory muscle usage. Abdominal: soft, nontender to palpation, no guarding, no appreciable organomegaly Ext: ROM intact. No gross muscle atrophy, no edema, no contractures Neuro: Speech clear, face symmetrical and CN II-XII grossly intact with no noted focal neuro deficits Psych: Alert and oriented to person, place, time, and situation. Appropriate and pleasant affect. Data Reviewed Today: Pertinent Labs: WBC 12.5, hemoglobin 11.9, sodium and potassium normal, bicarb 31, blood glucose 103, LDL 26.3, TSH 1.3 Assessment and Plan: Chest pain Paroxysmal atrial fibrillation with RVR Hypertension Hyperlipidemia -Cardiology consulted, appreciate recommendations -Continue Cardizem infusion at 5 mg/h, may titrate up to 15 mg/h for goal ventricular rate of 80-100. -Telemetry monitoring -Trend troponins -Cardiac diet -Continue cardiac medication regimen with , aspirin 81 mg daily, atorvastatin 20 mg nightly, and metoprolol increased from 25 mg daily to 50 mg twice daily. - Eliquis 5 mg twice daily on hold, currently continued on heparin infusion -Limited echo to evaluate for possible pericardial effusion ordered and pending ESRD on hemodialysis -Patient underwent dialysis today but was unable to complete full treatment session secondary to development of chest pain. Nephrology consulted for manag ement of dialysis. DVT ppx: Heparin drip Code status: Full code Anticipated discharge place: Home Anticipated discharge time: 24 to 48 hours Objective - Vital Signs Vital signs: Vital Signs Temp 98.8 F 08/01/24 12:19 Pulse 135 H 08/01/24 12:19 Resp 18 08/01/24 12:19 BP 107/70 08/01/24 12:19 Pulse Ox 94 L 08/01/24 12:19 FiO2 Intake & Output 07/31/24 08/01/24 08/01/24 18:59 06:59 18:59 Intake Total 32.917 147.642 758 Output Total 625 200 Balance 32.917 -477.358 558 Weight 72.575 kg 74.2 kg Intake: IV 10 Invasive Line 1 10 Intake, IV Titration 32.917 147.642 28 Amount Diltiazem 125 mg In 32.917 84.792 28 Sodium Chloride 0.9% 100 ml @ 5 MG/HR 5 mls/hr IV .Q24H [facility] Rx#:[id number] Heparin Sod,Pork in 0.45% 62.85 NaCl 25,000 unit In 0.45 % NaCl 1 250ml.bag @ 12 UNITS/KG/HR 8.709 mls/hr IV .Q24H [facility] Rx#: [id number] Oral 720 Output: Urine 625 200 Other: Voiding Method Urinal Urinal # Bowel Movements 1 - Labs CBC & Chem 7: 08/01/24 01:09 08/01/24 01:09 Labs: Abnormal Lab Results - Last 24 Hours (Table) 07/31/24 08/01/24 08/01/24 Range/Units 15:10 01:07 01:09 WBC 12.5 H (3.8-10.6) k/uL RBC 3.93 L (4.30-5.90) m/uL Hgb 11.9 L (13.0-17.5) gm/dL Hct 37.0 L (39.0-53.0) % APTT 42.6 H (22.0-30.0) sec Carbon Dioxide (22-30) mmol/L BUN (9-20) mg/dL Creatinine (0.66-1.25) mg/dL Glucose (74-99) mg/dL Troponin I 0.072 H* (0.000-0.034) ng/mL Total Protein (6.3-8.2) g/dL Triglycerides (0.00-149.00) mg/dL VLDL Cholesterol, Calc (5.00-40.00) mg/dL HDL Cholesterol (40.00-60.00) mg/dL 08/01/24 08/01/24 Range/Units 01:09 08:31 WBC (3.8-10.6) k/uL RBC (4.30-5.90) m/uL Hgb (13.0-17.5) gm/dL Hct (39.0-53.0) % APTT 45.3 H (22.0-30.0) sec Carbon Dioxide 31 H (22-30) mmol/L BUN 42 H (9-20) mg/dL Creatinine 5.49 H (0.66-1.25) mg/dL Glucose 103 H (74-99) mg/dL Troponin I (0.000-0.034) ng/mL Total Protein 6.2 L (6.3-8.2) g/dL Triglycerides 204.00 H (0.00-149.00) mg/dL VLDL Cholesterol, Calc 40.80 H (5.00-40.00) mg/dL HDL Cholesterol 33.90 L (40.00-60.00) mg/dL
[2024-08-01] MEDS: METOPROLOL TARTRATE 50 MG TAB PO SCH (21:09)
--- NOTE | 2024-08-02 08:18 | P.PN ---
Subjective Progress Note Date: 08/02/24 The patient is a pleasant 68-year-old gentleman who is known to our service from before with a past medical history significant for end-stage renal disease currently on dialysis as well as paroxysmal atrial fibrillation and multiple comorbid conditions who was admitted from the dialysis center because of chest discomfort but the patient does not recall having any chest discomfort. He was noted to be in A-fib with RVR. He was transferred to the selective units. The troponin came to be mildly elevated August 01, 2024 Patient was seen and evaluated this morning. He is currently asymptomatic. He denies any chest pain now or before. He underwent a stress test in the year of 2023 came in to be unremarkable for ischemia. The most recent echo from April 2024 showed normal LV systolic function. He is in A-fib with RVR and he is currently on Cardizem at 5 mg/h. He is also on beta-parvez. He is on heparin IV. The physical examination is remarkable for irregular rhythm with a systolic murmur at the right upper sternal border with bilateral expiratory wheezing and no edema was noted in the lower extremities August 02, 2024 The patient was seen and evaluated this morning. He remains in atrial fibrillation with uncontrolled heart rate. He is on Cardizem IV. I am going to increase the dose of beta-parvez. Continue heparin IV and consider switching the patient to oral anticoagulation. Follow-up on the echocardiogram which was performed. The physical examination is remarkable for irregular rhythm with a soft systolic murmur and clear within sounds bilaterally and no edema was noted ASSESSMENT: Chest discomfort but the patient denies any chest discomfort now or before Paroxysmal atrial fibrillation with RVR History of TONEY and cardioversion, March 2024 with subsequent significant bradycardia and pauses requiring external pacing, atropine, and epinephrine End-stage renal disease on hemodialysis Hypertension Hyperlipidemia PLAN: Increase the dose of beta-parvez Try to wean the patient from Cardizem Continue heparin for now Obtain an echo, limited, to rule out pericardial effusion giving the history of dialysis Follow-up with the patient Objective - Vital Signs Vital signs: Vital Signs Temp 98.7 F 08/02/24 07:40 Pulse 129 H 08/02/24 07:40 Resp 16 08/02/24 07:40 BP 112/79 08/02/24 07:40 Pulse Ox 96 08/02/24 07:40 FiO2 Intake & Output 03/08/02/24 08/02/24 18:59 06:59 18:59 Intake Total 1395.037 846.667 Output Total 500 1100 Balance 895.037 -253.333 Weight 70.9 kg Intake: IV 20 20 Invasive Line 1 20 20 Intake, IV Titration 175.037 106.667 Amount Diltiazem 125 mg In 28 106.667 Sodium Chloride 0.9% 100 ml @ 5 MG/HR 5 mls/hr IV .Q24H [facility] Rx#:[id number] Heparin Sod,Pork in 0.45% 147.037 NaCl 25,000 unit In 0.45 % NaCl 1 250ml.bag @ 12 UNITS/KG/HR 8.709 mls/hr IV .Q24H [facility] Rx#: [id number] Oral 1200 720 Output: Urine 500 1100 Other: Voiding Method Urinal Urinal # Bowel Movements 1 - Labs CBC & Chem 7: 08/01/24 01:09 08/01/24 01:09 Labs: Abnormal Lab Results - Last 24 Hours (Table) 08/01/24 08/01/24 Range/Units 01:09 08:31 APTT 45.3 H (22.0-30.0) sec Triglycerides 204.00 H (0.00-149.00) mg/dL VLDL Cholesterol, Calc 40.80 H (5.00-40.00) mg/dL HDL Cholesterol 33.90 L (40.00-60.00) mg/dL
--- NOTE | 2024-08-02 09:58 | P.PN ---
Subjective Patient is seen in follow-up for end-stage renal disease. On Cardizem drip for A-fib. On metoprolol. Denies any chest pain or shortness of breath. Vital signs are stable. General: No acute distress. HEENT: Head exam is unremarkable. On nasal cannula. LUNGS: No audible rhonchi or wheezes. HEART: Irregular rate and rhythm. ABDOMEN: Nontender. EXTREMITITES: No edema. Objective - Vital Signs Vital signs: Vital Signs Temp 98.7 F 08/02/24 07:40 Pulse 129 H 08/02/24 07:40 Resp 16 08/02/24 09:47 BP 112/79 08/02/24 07:40 Pulse Ox 96 08/02/24 07:40 FiO2 Intake & Output 08/01/24 08/02/24 08/02/24 18:59 06:59 18:59 Intake Total 1395.037 846.667 615.264 Output Total 500 1100 400 Balance 895.037 -253.333 215.264 Weight 70.9 kg Intake: IV 20 20 10 Invasive Line 1 20 20 10 Intake, IV Titration 175.037 106.667 125.264 Amount Diltiazem 125 mg In 28 106.667 Sodium Chloride 0.9% 100 ml @ 5 MG/HR 5 mls/hr IV .Q24H [facility] Rx#:[id number] Heparin Sod,Pork in 0.45% 147.037 125.264 NaCl 25,000 unit In 0.45 % NaCl 1 250ml.bag @ 12 UNITS/KG/HR 8.709 mls/hr IV .Q24H [facility] Rx#: [id number] Oral 1200 720 480 Output: Urine 500 1100 400 Other: Voiding Method Urinal Urinal Urinal # Bowel Movements 1 - Labs CBC & Chem 7: 08/01/24 01:09 08/01/24 01:09 Labs: Abnormal Lab Results - Last 24 Hours (Table) 08/01/24 08/02/24 Range/Units 01:09 07:40 APTT 38.8 H (22.0-30.0) sec Triglycerides 204.00 H (0.00-149.00) mg/dL VLDL Cholesterol, Calc 40.80 H (5.00-40.00) mg/dL HDL Cholesterol 33.90 L (40.00-60.00) mg/dL Assessment and Plan Plan: Assessment: 1. End-stage renal disease maintained on hemodialysis on Monday schedule. 2. A-fib with RVR maintained on Cardizem drip. Cardiology following. Metoprolol dose increased. 3. 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 Phosphorus level 3.4 dated July 31, 2024. 4. Tobacco abuse. Plan: Hemodialysis today. Follow-up echocardiogram.
[2024-08-02] MEDS: METOPROLOL TARTRATE 50 MG TAB PO SCH (10:14)
--- NOTE | 2024-08-02 11:20 | CA ---
Transthoracic Echo Report Name: Nolberto Ellis Age: 68 Gender: M : 1955 Exam Date: 08/01/2024 11:27 Exam Location: [facility] Ht (in): 64 Wt (lb): 163 Ordering Physician: Frandy Stewart MD ([id number]) Attending/Referring Phys: Box Sealing Machine Operator Mague Garcia RDCS Procedure CPT: Indications: r/o pericardial effusion Cardiac Hx: Limited for pericardial effusion only. Tachy 135 Technical Quality: Fair Contrast 1: Total Dose (mL): Contrast 2: Total Dose (mL): MEASUREMENTS (Male / Female) Normal Values FINDINGS Left Ventricle Right Ventricle Right Atrium Left Atrium Mitral Valve Aortic Valve Tricuspid Valve Pulmonic Valve Pericardium trace pericardial effusion. Aorta CONCLUSIONS Previewed by: Dr. Michael Blandon MD (Electronically Signed) Final Date: 02 August 2024 11:19
--- NOTE | 2024-08-02 12:51 | P.PN ---
Subjective Progress Note Date: 08/02/24 Hospital Course: Patient is a pleasant 68-year-old male with a past medical history of paroxysmal atrial fibrillation status post cardioversion on anticoagulation with Eliquis, hypertension, hyperlipidemia, and ESRD on hemodialysis Monday/Monday/Fridays. Patient presented to the emergency department with a chief complaint of chest pain. Patient was undergoing hemodialysis when he developed pain/pressure to midsternal chest accompanied by shortness of breath. Patient describes this kate n as a heaviness and states he was unable to catch his breath. He denies having any cough or congestion, palpitations, fevers/chills/diaphoresis, nausea or vomiting, or experiencing any numbness/tingling/weakness/swelling in his extremities. He reports his dialysis was immediately stopped and he was approximately an hour and 1/2 to 2 hours into session. He states he was given nitroglycerin which resulted in improvement of chest pain after approximately 20 minutes. Upon arrival to our facility, patient reports chest pain has fully resolved and he currently denies having any complaints. On arrival to our facility patient underwent evaluation in the emergency department. Vital signs on arrival show blood pressure 102/76, heart rate 105, respiratory rate 18, temp 98.0 F, and SpO2 of 98% on 2 L. EKG was completed showing atrial fibrillation with RVR to 136 bpm with T wave inversion in lateral leads I and aVL. Chest x- ray showing cardiomegaly with mild pulmonary vascular congestion and similar bibasilar opacities favored to represent atelectasis. Patient was given aspirin 324 mg p.o. x 1 dose in the emergency department along with Cardizem bolus followed by infusion. He was admitted under our services with consultation to cardiology and nephrology. Cardiology following, try to wean Cardizem drip, patient was started on heparin drip, limited echo ordered to rule out pericardial effusion. Lopressor increased to 50 mg twice daily and then to 3 times a day. Heparin drip to be continued, attempt to wean Cardizem. TTE showed trace pericardial effusion Hemodialysis 08/02, patient is grossly asymptomatic. Due to continuous IV infusion of Cardizem, patient will be switched to inpatient. Pertinent Imaging: TTE as above Subjective: Seen and examined at bedside, denies any chest pain or discomfort today, no shortness of breath Pertinent positives and negatives as discussed above, a complete review of systems was performed and all other systems are negative. Vitals Signs Reviewed. General: Nontoxic, no distress and appears stated age. Derm: Skin warm and dry, normal coloration for ethnicity. Head: Atraumatic, normocephalic and symmetric. Eyes: EOM's intact, no lid lag, and anicteric sclera Mouth: no lip lesions, mucus membranes moist Cardiovascular: Irregularly irregular , no murmur, positive posterior tibial pulses bilaterally, and cap refill < 2 seconds. AV fistula left upper extremity. Lungs: Respirations even, regular, and unlabored on room air. Lungs CTA bilaterally, no rhonchi, no rales, no wheezing, and no accessory muscle usage. Abdominal: soft, nontender to palpation, no guarding, no appreciable organomegaly Ext: ROM intact. No gross muscle atrophy, no edema, no contractures Neuro: Speech clear, face symmetrical and CN II-XII grossly intact with no noted focal neuro deficits Psych: Alert and oriented to person, place, time, and situation. Appropriate and pleasant affect. Data Reviewed Today: Pertinent Labs: APTT 38.8 Assessment and Plan: Chest pain Trace pericardial effusion Paroxysmal atrial fibrillation with RVR Hypertension Hyperlipidemia -Cardiology consulted, appreciate recommendations -Continue Cardizem infusion at 5 mg/h, may titrate up to 15 mg/h for goal ventricular rate of 80-100. -Telemetry monitoring -Trend troponins -Cardiac diet -Continue cardiac medication regimen with , aspirin 81 mg daily, atorvastatin 20 mg nightly, and metoprolol increased from 25 mg daily to 50 mg 3 times daily - Eliquis 5 mg twice daily on hold, currently continued on heparin infusion -Limited echo to evaluate for possible pericardial effusion was positive for trace pericardial effusion ESRD on hemodialysis -Patient underwent dialysis today but was unable to complete full treatment session secondary to development of chest pain. Nephrology consulted for management of dialysis. DVT ppx: Heparin drip Code status: Full code Anticipated discharge place: Home Anticipated discharge time: TBD Objective - Vital Signs Vital signs: Vital Signs Temp 97.4 F L 08/02/24 11:30 Pulse 67 08/02/24 11:30 Resp 16 08/02/24 11:30 BP 110/61 08/02/24 11:30 Pulse Ox 96 08/02/24 11:30 FiO2 Intake & Output 08/01/24 08/02/24 08/02/24 18:59 06:59 18:59 Intake Total 1395.037 846.667 615.264 Output Total 500 1100 400 Balance 895.037 -253.333 215.264 Weight 70.9 kg Intake: IV 20 20 10 Invasive Line 1 20 20 10 Intake, IV Titration 175.037 106.667 125.264 Amount Diltiazem 125 mg In 28 106.667 Sodium Chloride 0.9% 100 ml @ 5 MG/HR 5 mls/hr IV .Q24H [facility] Rx#:[id number] Heparin Sod,Pork in 0.45% 147.037 125.264 NaCl 25,000 unit In 0.45 % NaCl 1 250ml.bag @ 12 UNITS/KG/HR 8.709 mls/hr IV .Q24H [facility] Rx#: [id number] Oral 1200 720 480 Output: Urine 500 1100 400 Other: Voiding Method Urinal Urinal Urinal # Bowel Movements 1 - Labs CBC & Chem 7: 08/01/24 01:09 08/01/24 01:09 Labs: Abnormal Lab Results - Last 24 Hours (Table) 08/02/24 Range/Units 07:40 APTT 38.8 H (22.0-30.0) sec
[2024-08-02] MEDS: MELATONIN 3 MG TABLET PO PRN (20:56)
--- NOTE | 2024-08-03 07:11 | P.PN ---
Subjective Progress Note Date: 08/03/24 The patient is a pleasant 68-year-old gentleman who is known to our service from before with a past medical history significant for end-stage renal disease currently on dialysis as well as paroxysmal atrial fibrillation and multiple comorbid conditions who was admitted from the dialysis center because of chest discomfort but the patient does not recall having any chest discomfort. He was noted to be in A-fib with RVR. He was transferred to the selective units. The troponin came to be mildly elevated August 01, 2024 Patient was seen and evaluated this morning. He is currently asymptomatic. He denies any chest pain now or before. He underwent a stress test in the year of 2023 came in to be unremarkable for ischemia. The most recent echo from April 2024 showed normal LV systolic function. He is in A-fib with RVR and he is currently on Cardizem at 5 mg/h. He is also on beta-parvez. He is on heparin IV. The physical examination is remarkable for irregular rhythm with a systolic murmur at the right upper sternal border with bilateral expiratory wheezing and no edema was noted in the lower extremities August 02, 2024 The patient was seen and evaluated this morning. He remains in atrial fibrillation with uncontrolled heart rate. He is on Cardizem IV. I am going to increase the dose of beta-pravez. Continue heparin IV and consider switching the patient to oral anticoagulation. Follow-up on the echocardiogram which was performed. The physical examination is remarkable for irregular rhythm with a soft systolic murmur and clear within sounds bilaterally and no edema was noted August 03, 2024 The patient was seen and evaluated this morning. He is asymptomatic. The p ressure is soft. He remains in atrial fibrillation with RVR in spite of being on Cardizem IV. I am going to DC the Cardizem IV and start the patient on amiodarone IV and switch him to oral amiodarone. Also stop the heparin IV and start the patient on oral anticoagulation. The physical examination is remarkable for irregular rhythm with a systolic murmur and clear breathing sounds bilaterally and no edema was noted. He underwent dialysis yesterday with removal of 1.5 L. The echo showed trace pericardial effusion ASSESSMENT: Chest discomfort but the patient denies any chest discomfort now or before Paroxysmal atrial fibrillation and currently the patient is in atrial fibrillation with RVR History of TONEY and cardioversion, March 2024 with subsequent significant bradycardia and pauses requiring external pacing, atropine, and epinephrine End-stage renal disease on hemodialysis Hypertension Hyperlipidemia PLAN: Continue the current medical regimen DC Cardizem IV and start the patient on amiodarone IV Consider switching the patient to oral amiodarone Start the patient on oral anticoagulation Follow-up with the patient Objective - Vital Signs Vital signs: Vital Signs Temp 98.2 F 08/03/24 03:49 Pulse 88 08/03/24 03:49 Resp 16 08/03/24 03:49 BP 99/58 08/03/24 03:49 Pulse Ox 97 08/03/24 03:49 FiO2 Intake & Output 08/02/24 08/03/24 08/03/24 18:59 06:59 18:59 Intake Total 1473.431 212.198 Output Total 3800 1025 Balance -2326.569 -812.802 Weight 75.4 kg Intake: IV 20 20 Invasive Line 1 20 20 Intake, IV Titration 213.431 192.198 Amount Diltiazem 125 mg In 88.167 74.5 Sodium Chloride 0.9% 100 ml @ 5 MG/HR 5 mls/hr IV .Q24H [facility] Rx#:[id number] Heparin Sod,Pork in 0.45% 125.264 117.698 NaCl 25,000 unit In 0.45 % NaCl 1 250ml.bag @ 12 UNITS/KG/HR 8.709 mls/hr IV .Q24H [facility] Rx#: [id number] Oral 840 Hemodialysis 400 Output: Urine 800 1025 Hemodialysis 1700 Hemodialysis Net Amount 1300 Other: Voiding Method Urinal Urinal - Labs CBC & Chem 7: 08/01/24 01:09 08/01/24 01:09 Labs: Abnormal Lab Results - Last 24 Hours (Table) 08/02/24 08/02/24 Range/Units 07:40 15:14 APTT 38.8 H 41.3 H (22.0-30.0) sec
[2024-08-03 08:02] LABS: Basophils % (A) 0 %; Eosinophils # (A) 0.2 k/uL (0-0.7); Eosinophils % (A) 2 %; HCT 38.7 % (39.0-53.0); HGB 12.8 gm/dL (13.0-17.5); Lymphocytes # (A) 1.9 k/uL (1.0-4.8); Lymphocytes % (A) 19 %; MCH 30.4 pg (25.0-35.0); MCHC 33.2 g/dL (31.0-37.0); MCV 91.6 fL (80.0-100.0); Mean Platelet Volume 8.1; Monocytes # (A) 0.7 k/uL (0-1.0); Monocytes % (A) 7 %; Neutrophils # (A) 6.9 k/uL (1.3-7.7); Neutrophils % (A) 70 %; Platelet Count 170 k/uL (150-450); RBC 4.23 m/uL (4.30-5.90); RDW 13.9 % (11.5-15.5); WBC 9.9 k/uL (3.8-10.6)
[2024-08-03 08:17] LABS: African American GFR (CKD) 13 (>60 ml/min/1.73 sqM); Anion Gap 11 mmol/L; Blood Urea Nitrogen 29 mg/dL (9-20); Calcium 9.5 mg/dL (8.4-10.2); Carbon Dioxide 26 mmol/L (22-30); Chloride 99 mmol/L (98-107); Glucose 153 mg/dL (74-99); Non-African American GFR(CKD) 11 (>60 ml/min/1.73 sqM); Potassium 4.6 mmol/L (3.5-5.1); Sodium 136 mmol/L (137-145)
[2024-08-03] MEDS: AMIODARONE 360 MG in DEXTROSE 5% IN WATER 200 ML IV ONE (09:00)
[2024-08-03] MEDS: WATER IV ONE (09:00)
[2024-08-03] MEDS: AMIODARONE IV ONE (09:00)
[2024-08-03] MEDS: APIXABAN 2.5 MG TABLET PO SCH (09:00)
[2024-08-03] MEDS: DEXTROSE 5% IV ONE (09:00)
--- NOTE | 2024-08-03 11:13 | P.PN ---
Subjective Progress Note Date: 08/03/24 Patient is seen in follow-up for end-stage renal disease. had HD yesterday. On Cardizem drip for A-fib. On metoprolol. Denies any chest pain or shortness of breath. Vital signs are stable. General: No acute distress. HEENT: Head exam is unremarkable. On nasal cannula. LUNGS: No audible rhonchi or wheezes. HEART: Irregular rate and rhythm. ABDOMEN: Nontender. EXTREMITITES: No edema. Objective - Vital Signs Vital signs: Vital Signs Temp 98.2 F 08/03/24 08:00 Pulse 120 H 08/03/24 08:00 Resp 18 08/03/24 08:00 BP 100/65 08/03/24 08:00 Pulse Ox 93 L 08/03/24 08:00 FiO2 Intake & Output 08/02/24 08/03/24 08/03/24 18:59 06:59 18:59 Intake Total 1473.431 212.198 180 Output Total 3800 1025 Balance -2326.569 -812.802 180 Weight 75.4 kg Intake: IV 20 20 Invasive Line 1 20 20 Intake, IV Titration 213.431 192.198 Amount Diltiazem 125 mg In 88.167 74.5 Sodium Chloride 0.9% 100 ml @ 5 MG/HR 5 mls/hr IV .Q24H [facility] Rx#:[id number] Heparin Sod,Pork in 0.45% 125.264 117.698 NaCl 25,000 unit In 0.45 % NaCl 1 250ml.bag @ 12 UNITS/KG/HR 8.709 mls/hr IV .Q24H [facility] Rx#: [id number] Oral 840 180 Hemodialysis 400 Output: Urine 800 1025 Hemodialysis 1700 Hemodialysis Net Amount 1300 Other: Voiding Method Urinal Urinal - Labs CBC & Chem 7: 08/03/24 07:45 08/03/24 07:45 Labs: Abnormal Lab Results - Last 24 Hours (Table) 08/02/24 08/03/24 08/03/24 Range/Units 15:14 07:45 07:45 RBC 4.23 L (4.30-5.90) m/uL Hgb 12.8 L (13.0-17.5) gm/dL Hct 38.7 L (39.0-53.0) % APTT 41.3 H (22.0-30.0) sec Sodium 136 L (137-145) mmol/L BUN 29 H (9-20) mg/dL Creatinine 5.04 H (0.66-1.25) mg/dL Glucose 153 H (74-99) mg/dL 08/03/24 Range/Units 07:45 RBC (4.30-5.90) m/uL Hgb (13.0-17.5) gm/dL Hct (39.0-53.0) % APTT 30.9 H (22.0-30.0) sec Sodium (137-145) mmol/L BUN (9-20) mg/dL Creatinine (0.66-1.25) mg/dL Glucose (74-99) mg/dL Assessment and Plan Plan: Assessment: 1. End-stage renal disease maintained on hemodialysis on Monday schedule. 2. A-fib with RVR maintained on Cardizem drip. Cardiology following. Metoprolol dose increased. 3. 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 Phosphorus level 3.4 dated July 31, 2024. 4. Tobacco abuse. Plan: Hemodialysis on Monday per schedule. Follow-up echocardiogram.
--- NOTE | 2024-08-03 11:51 | P.PN ---
Subjective Progress Note Date: 08/03/24 Hospital course: Patient is a Patient is a pleasant 68-year-old male with a past medical history of paroxysmal atrial fibrillation status post cardioversion on anticoagulation with Eliquis, hypertension, hyperlipidemia, and ESRD on hemodialysis Monday/Monday/Fridays. Patient presented to the emergency department with a chief complaint of chest pain. Patient was undergoing hemodialysis when he developed pain/pressure to midsternal chest accompanied by shortness of breath. Upon arrival to our facility, patient reports chest pain has fully resolved and he currently denies having any complaints. On arrival to our facility patient u nderwent evaluation in the emergency department. Vital signs on arrival show blood pressure 102/76, heart rate 105, respiratory rate 18, temp 98.0 F, and SpO2 of 98% on 2 L. EKG was completed showing atrial fibrillation with RVR to 136 bpm with T wave inversion in lateral leads I and aVL. Chest x-ray showing cardiomegaly with mild pulmonary vascular congestion and similar bibasilar opacities favored to represent atelectasis. Patient was given aspirin 324 mg p.o. x 1 dose in the emergency department along with Cardizem bolus followed by infusion. He was admitted under our services with consultation to cardiology and nephrology. Cardiology following, try to wean Cardizem drip, patient was started on heparin drip, limited echo ordered to rule out pericardial effusion. Lopressor increas ed to 50 mg twice daily and then to 3 times a day. Heparin drip to be continued, attempt to wean Cardizem. Echocardiogram showed trace pericardial effusion Hemodialysis 08/02, patient is grossly asymptomatic. Due to continuous need for IV infusion of Cardizem, patient was transitioned to inpatient admission at this time.. 08/03 patient remains in A-fib RVR, Cardizem discontinued and respiratory equipment assistant starting patient on amiodarone IV and will plan to switch patient to oral amiodarone. Physical exam: Patient seen and fully evaluated at bedside this morning. He currently denies having any chest pain, palpitations, shortness of breath at this time. He remains in A-fib RVR with heart rate in 120s. Plan of care with patient and all questions answered at this time. Patient denies having any further questions, needs, concerns, or complaints. Vital signs reviewed and stable. General: Nontoxic, no distress and appears stated age. Derm: Skin warm and dry, normal coloration for ethnicity. Head: Atraumatic, normocephalic and symmetric. Eyes: EOM's intact, no lid lag, and anicteric sclera Mouth: no lip lesions, mucus membranes moist Cardiovascular: Irregularly irregular , no murmur, positive posterior tibial pulses bilaterally, and cap refill < 2 seconds. AV fistula left upper extremity. Lungs: Respirations even, regular, and unlabored on room air. Lungs CTA bilaterally, no rhonchi, no rales, no wheezing, and no accessory muscle usage. Abdominal: soft, nontender to palpation, no guarding, no appreciable organomegaly Ext: ROM intact. No gross muscle atrophy, no edema, no contractures Neuro: Speech clear, face symmetrical and CN II-XII grossly intact with no noted focal neuro deficits Psych: Alert and oriented to person, place, time, and situation. Appropriate and pleasant affect. Assessment and Plan of Care: Paroxysmal atrial fibrillation with persistent RVR Elevated troponin,likely secondary to RVR Chest pain, acute coronary event ruled out Trace pericardial effusion Hypertension Hyperlipidemia -Cardiology following, discussed plan of care with Dr. Stewart. Cardizem being discontinued and pt being started on amiodarone infusion at this time. -Continue amiodarone infusion at 1 mg/min and after 6 hours titrate down to 0.5 mg/min for an additional 18 hours prior to transitioning patient to oral amiodarone. -Heparin infusion discontinued and patient to resume Eliquis 2.5 mg twice daily. -Telemetry monitoring -Cardiac diet -Continue cardiac medication regimen with , aspirin 81 mg daily, atorvastatin 20 mg nightly, and metoprolol increased from 25 mg daily to 50 mg 3 times daily - Eliquis 2.5 mg twice daily on hold, currently continued on heparin infusion -Limited echo revealed trace pericardial effusion ESRD on hemodialysis -Nephrology following for management of dialysis. Data and imaging reviewed: -Labs completed and reviewed. CBC showing normocytic anemia with hemoglobin of 12.8. PTT showing subtherapeutic at 30.9 and heparin infusion was discontinued and patient started back on Eliquis by respiratory equipment assistant. BMP showing sodium 136, BUN of 29, creatinine 5.04, GFR of 11. Blood glucose 153. -Vital signs reviewed. Blood pressure 100/65, heart rate 120, respiratory rate 18, temp 98.2 F, and SpO2 of 93% on 2 L. CODE STATUS: Full code DVT prophylaxis: Eliquis Discussed with: Patient, RN, and respiratory equipment assistant Anticipated discharge date: Pending clinical course/control of rapid ventricular rate Anticipated discharge place: Home Patient was seen independently by Nurse Pracitioner. This document was prepared using [email or web address] dictation software. Please allow for errors in box chipper, while rare they do occur. Harpal Kaufman NP rendered care for this patient independently, reviewed the findin gs and plan as documented in the note above and agree with plan. I did not physically speak with or examine the patient on this date. Objective - Vital Signs Vital signs: Vital Signs Temp 98.2 F 08/03/24 08:00 Pulse 120 H 08/03/24 08:00 Resp 18 08/03/24 08:00 BP 100/65 08/03/24 08:00 Pulse Ox 93 L 08/03/24 08:00 FiO2 Intake & Output 08/02/24 08/03/24 08/03/24 18:59 06:59 18:59 Intake Total 1473.431 212.198 Output Total 3800 1025 Balance -2326.569 -812.802 Weight 75.4 kg Intake: IV 20 20 Invasive Line 1 20 20 Intake, IV Titration 213.431 192.198 Amount Diltiazem 125 mg In 88.167 74.5 Sodium Chloride 0.9% 100 ml @ 5 MG/HR 5 mls/hr IV .Q24H [facility] Rx#:[id number] Heparin Sod,Pork in 0.45% 125.264 117.698 NaCl 25,000 unit In 0.45 % NaCl 1 250ml.bag @ 12 UNITS/KG/HR 8.709 mls/hr IV .Q24H [facility] Rx#: [id number] Oral 840 Hemodialysis 400 Output: Urine 800 1025 Hemodialysis 1700 Hemodialysis Net Amount 1300 Other: Voiding Method Urinal Urinal - Labs CBC & Chem 7: 08/03/24 07:45 08/03/24 07:45 Labs: Abnormal Lab Results - Last 24 Hours (Table) 08/02/24 08/03/24 08/03/24 Range/Units 15:14 07:45 07:45 RBC 4.23 L (4.30-5.90) m/uL Hgb 12.8 L (13.0-17.5) gm/dL Hct 38.7 L (39.0-53.0) % APTT 41.3 H (22.0-30.0) sec Sodium 136 L (137-145) mmol/L BUN 29 H (9-20) mg/dL Creatinine 5.04 H (0.66-1.25) mg/dL Glucose 153 H (74-99) mg/dL 08/03/24 Range/Units 07:45 RBC (4.30-5.90) m/uL Hgb (13.0-17.5) gm/dL Hct (39.0-53.0) % APTT 30.9 H (22.0-30.0) sec Sodium (137-145) mmol/L BUN (9-20) mg/dL Creatinine (0.66-1.25) mg/dL Glucose (74-99) mg/dL
[2024-08-03] MEDS: AMIODARONE 450 MG in DEXTROSE 5% IN WATER 250 ML IV SCH (15:49)
--- NOTE | 2024-08-04 07:53 | P.PN ---
Subjective Progress Note Date: 08/04/24 The patient is a pleasant 68-year-old gentleman who is known to our service from before with a past medical history significant for end-stage renal disease currently on dialysis as well as paroxysmal atrial fibrillation and multiple comorbid conditions who was admitted from the dialysis center because of chest discomfort but the patient does not recall having any chest discomfort. He was noted to be in A-fib with RVR. He was transferred to the selective units. The troponin came to be mildly elevated August 01, 2024 Patient was seen and evaluated this morning. He is currently asymptomatic. He denies any chest pain now or before. He underwent a stress test in the year of 2023 came in to be unremarkable for ischemia. The most recent echo from April 2024 showed normal LV systolic function. He is in A-fib with RVR and he is currently on Cardizem at 5 mg/h. He is also on beta-parvez. He is on heparin IV. The physical examination is remarkable for irregular rhythm with a systolic murmur at the right upper sternal border with bilateral expiratory wheezing and no edema was noted in the lower extremities August 02, 2024 The patient was seen and evaluated this morning. He remains in atrial fibrillation with uncontrolled heart rate. He is on Cardizem IV. I am going to increase the dose of beta-parvez. Continue heparin IV and consider switching the patient to oral anticoagulation. Follow-up on the echocardiogram which was performed. The physical examination is remarkable for irregular rhythm with a soft systolic murmur and clear within sounds bilaterally and no edema was noted August 03, 2024 The patient was seen and evaluated this morning. He is asymptomatic. The p ressure is soft. He remains in atrial fibrillation with RVR in spite of being on Cardizem IV. I am going to DC the Cardizem IV and start the patient on amiodarone IV and switch him to oral amiodarone. Also stop the heparin IV and start the patient on oral anticoagulation. The physical examination is remarkable for irregular rhythm with a systolic murmur and clear breathing sounds bilaterally and no edema was noted. He underwent dialysis yesterday with removal of 1.5 L. The echo showed trace pericardial effusion August 04, 2024 The patient was seen and evaluated this morning with he is in atrial fibrillation with uncontrolled heart rate. He is on amiodarone IV which and going to switch him to amiodarone orally and increase the dose of beta-parvez. In the past post cardioversion he was bradycardic based on the history in the chart. He is asymptomatic from a cardiovascular standpoint of view. Hemodynamically he is stable beside the tachycardia with atrial fibrillation. He is on oral anticoagulation. The physical examination is remarkable for irregular rhythm with a soft systolic murmur and clear breathing sounds bilaterally and no edema was noted in the lower extremities ASSESSMENT: Chest discomfort but the patient denies any chest discomfort now or before Paroxysmal atrial fibrillation and currently the patient is in atrial fibrillation with RVR History of TONEY and cardioversion, March 2024 with subsequent significant bradycardia and pauses requiring external pacing, atropine, and epinephrine End-stage renal disease on hemodialysis Hypertension Hyperlipidemia PLAN: DC amnio IV and start the patient on amiodarone orally Increase the dose of beta-parvez Continue oral anticoagulation Monitor the patient for additional 24 hours Objective - Vital Signs Vital signs: Vital Signs Temp 98.2 F 08/04/24 04:12 Pulse 122 H 08/04/24 04:12 Resp 18 08/04/24 04:12 BP 119/83 08/04/24 04:12 Pulse Ox 94 L 08/04/24 04:12 FiO2 Intake & Output 08/03/24 08/04/24 08/04/24 18:59 06:59 18:59 Intake Total 360 420.56 Output Total 750 1025 Balance -390 -604.44 Weight 76 kg Intake: Intake, IV Titration 240.56 Amount Amiodarone 450 mg In 240.56 Dextrose 5% in Water 250 ml @ 0.5 MG/MIN 16.667 mls/hr IV .Q15H [facility] Rx#: [id number] Oral 360 180 Output: Urine 750 1025 Other: Voiding Method Urinal # Bowel Movements 0 - Labs CBC & Chem 7: 08/03/24 07:45 08/03/24 07:45 Labs: Abnormal Lab Results - Last 24 Hours (Table) 08/03/24 08/03/24 08/03/24 Range/Units 07:45 07:45 07:45 RBC 4.23 L (4.30-5.90) m/uL Hgb 12.8 L (13.0-17.5) gm/dL Hct 38.7 L (39.0-53.0) % APTT 30.9 H (22.0-30.0) sec Sodium 136 L (137-145) mmol/L BUN 29 H (9-20) mg/dL Creatinine 5.04 H (0.66-1.25) mg/dL Glucose 153 H (74-99) mg/dL
[2024-08-04 09:19] LABS: HCT 38.1 % (39.0-53.0); HGB 12.5 gm/dL (13.0-17.5); MCHC 32.8 g/dL (31.0-37.0); MCV 91.5 fL (80.0-100.0); Mean Platelet Volume 8.5; Platelet Count 163 k/uL (150-450); RBC 4.16 m/uL (4.30-5.90); RDW 13.9 % (11.5-15.5)
[2024-08-04] MEDS: AMIODARONE 200 MG TAB PO SCH (09:28)
[2024-08-04] MEDS: METOPROLOL TARTRATE 50 MG TAB PO SCH (09:28)
[2024-08-04 09:41] LABS: ALT 30 U/L (4-49); AST 26 U/L (17-59); African American GFR (CKD) 9 (>60 ml/min/1.73 sqM); Alkaline Phosphatase 120 U/L (38-126); Anion Gap 9 mmol/L; Blood Urea Nitrogen 42 mg/dL (9-20); Calcium 9.9 mg/dL (8.4-10.2); Carbon Dioxide 29 mmol/L (22-30); Chloride 100 mmol/L (98-107); Glucose 102 mg/dL (74-99); Non-African American GFR(CKD) 7 (>60 ml/min/1.73 sqM); Potassium 4.8 mmol/L (3.5-5.1); Sodium 138 mmol/L (137-145); Total Bilirubin 0.4 mg/dL (0.2-1.3); Total Protein 6.7 g/dL (6.3-8.2)
--- NOTE | 2024-08-04 11:00 | P.PN ---
Subjective Progress Note Date: 08/04/24 Hospital course: Patient is a Patient is a pleasant 68-year-old male with a past medical history of paroxysmal atrial fibrillation status post cardioversion on anticoagulation with Eliquis, hypertension, hyperlipidemia, and ESRD on hemodialysis Monday/Monday/Fridays. Patient presented to the emergency department with a chief complaint of chest pain. Patient was undergoing hemodialysis when he developed pain/pressure to midsternal chest accompanied by shortness of breath. Upon arrival to our facility, patient reports chest pain has fully resolved and he currently denies having any complaints. On arrival to our facility patient u nderwent evaluation in the emergency department. Vital signs on arrival show blood pressure 102/76, heart rate 105, respiratory rate 18, temp 98.0 F, and SpO2 of 98% on 2 L. EKG was completed showing atrial fibrillation with RVR to 136 bpm with T wave inversion in lateral leads I and aVL. Chest x-ray showing cardiomegaly with mild pulmonary vascular congestion and similar bibasilar opacities favored to represent atelectasis. Patient was given aspirin 324 mg p.o. x 1 dose in the emergency department along with Cardizem bolus followed by infusion. He was admitted under our services with consultation to cardiology and nephrology. Cardiology following, try to wean Cardizem drip, patient was started on heparin drip, limited echo ordered to rule out pericardial effusion. Lopressor increas ed to 50 mg twice daily and then to 3 times a day. Heparin drip to be continued, attempt to wean Cardizem. Echocardiogram showed trace pericardial effusion Hemodialysis 08/02, patient is grossly asymptomatic. Due to continuous need for IV infusion of Cardizem, patient was transitioned to inpatient admission at this time.. 08/03 patient remains in A-fib RVR, Cardizem discontinued and molasses and caramel operator starting patient on amiodarone IV and will plan to switch patient to oral amiodarone. Physical exam: Patient seen and fully evaluated at bedside this morning. He currently denies having any complaints including chest pain, palpitations, or shortness of breath. He remains in A-fib RVR with heart rate in 120s. Discussed medication changes and plan of care in detail with patient and all questions answered at this time. Patient denies having any further questions, needs, concerns, or complaints. Vital signs reviewed and stable. General: Nontoxic, no distress and appears stated age. Derm: Skin warm and dry, normal coloration for ethnicity. Head: Atraumatic, normocephalic and symmetric. Eyes: EOM's intact, no lid lag, and anicteric sclera Mouth: no lip lesions, mucus membranes moist Cardiovascular: Irregularly irregular , no murmur, positive posterior tibial pulses bilaterally, and cap refill < 2 seconds. AV fistula left upper extremity. Lungs: Respirations even, regular, and unlabored on room air. Lungs CTA bilaterally, no rhonchi, no rales, no wheezing, and no accessory muscle usage. Abdominal: soft, nontender to palpation, no guarding, no appreciable organomegaly Ext: ROM intact. No gross muscle atrophy, no edema, no contractures Neuro: Speech clear, face symmetrical and CN II-XII grossly intact with no noted focal neuro deficits Psych: Alert and oriented to person, place, time, and situation. Appropriate and pleasant affect. Assessment and Plan of Care: Atrial fibrillation with persistent RVR Elevated troponin,likely secondary to RVR Chest pain, acute coronary event ruled out Trace pericardial effusion Hypertension Hyperlipidemia -Cardiology following, discussed plan of care with Dr. Stewart. Amiodarone infusion discontinued, metoprolol increased to 100 mg 3 times daily and patient started on oral amiodarone, to be monitored for an additional 24 hours. -Continue amiodarone 400 mg twice daily with plan to discharge home on amiodarone taper -Continue Eliquis 2.5 mg twice daily. -Telemetry monitoring -Cardiac diet -Continue cardiac medication regimen with , aspirin 81 mg daily, atorvastatin 20 mg nightly, and metoprolol increased from 25 mg daily to 100 mg 3 times daily -Limited echo revealed trace pericardial effusion ESRD on hemodialysis Monday/Monday/Monday -Nephrology following for management of dialysis. Data and imaging reviewed: -Labs completed and reviewed. CBC showing normocytic anemia with hemoglobin of 12.5. BMP showing BUN of 42, creatinine of 7.04, GFR of 7. Blood glucose 102. Magnesium 2.0. Liver profile unremarkable. Patient scheduled for dialysis tomorrow morning. -Vital signs reviewed. Blood pressure 116/78, heart rate 127, respiratory rate 18, temp 98.2 F, and SpO2 of 93% on 2 L per CODE STATUS: Full code DVT prophylaxis: Eliquis Discussed with: Patient, RN, and molasses and caramel operator Anticipated discharge date: Pending clinical course and control of persistent rapid ventricular rate Anticipated discharge place: Home Patient was seen independently by Nurse Pracitioner. This document was prepared using [employer] dictation software. Please allow for errors in medical imaging specialist, while rare they do occur. Harpal Kaufman NP rendered care for this patient independently, reviewed the findings and plan as documented in the note above and agree with plan. I did not physically speak with or examine the patient on this date. Objective - Vital Signs Vital signs: Vital Signs Temp 98.2 F 08/04/24 08:00 Pulse 127 H 08/04/24 08:00 Resp 18 08/04/24 08:00 BP 116/78 08/04/24 08:00 Pulse Ox 93 L 08/04/24 08:00 FiO2 Intake & Output 08/03/24 08/04/24 08/04/24 18:59 06:59 18:59 Intake Total 360 420.56 Output Total 750 1025 Balance -390 -604.44 Weight 76 kg Intake: Intake, IV Titration 240.56 Amount Amiodarone 450 mg In 240.56 Dextrose 5% in Water 250 ml @ 0.5 MG/MIN 16.667 mls/hr IV .Q15H [facility] Rx#: [id number] Oral 360 180 Output: Urine 750 1025 Other: Voiding Method Urinal # Bowel Movements 0 - Labs CBC & Chem 7: 08/04/24 09:09 08/04/24 09:09
--- NOTE | 2024-08-04 12:16 | P.PN ---
Subjective Progress Note Date: 08/04/24 Patient is seen in follow-up for end-stage renal disease. No new complaints, off Cardizem drip for A-fib. he wants to go home Vital signs are stable. General: No acute distress. HEENT: Head exam is unremarkable. On nasal cannula. LUNGS: No audible rhonchi or wheezes. HEART: Irregular rate and rhythm. ABDOMEN: Nontender. EXTREMITITES: No edema. Objective - Vital Signs Vital signs: Vital Signs Temp 98.2 F 08/04/24 08:00 Pulse 127 H 08/04/24 08:00 Resp 18 08/04/24 08:00 BP 116/78 08/04/24 08:00 Pulse Ox 93 L 08/04/24 08:00 FiO2 Intake & Output 08/03/24 08/04/24 08/04/24 18:59 06:59 18:59 Intake Total 360 420.56 Output Total 750 1025 500 Balance -390 -604.44 -500 Weight 76 kg Intake: Intake, IV Titration 240.56 Amount Amiodarone 450 mg In 240.56 Dextrose 5% in Water 250 ml @ 0.5 MG/MIN 16.667 mls/hr IV .Q15H [facility] Rx#: [id number] Oral 360 180 Output: Urine 750 1025 500 Other: Voiding Method Urinal # Bowel Movements 0 - Labs CBC & Chem 7: 08/04/24 09:09 08/04/24 09:09 Labs: Abnormal Lab Results - Last 24 Hours (Table) 08/04/24 08/04/24 Range/Units 09:09 09:09 RBC 4.16 L (4.30-5.90) m/uL Hgb 12.5 L (13.0-17.5) gm/dL Hct 38.1 L (39.0-53.0) % BUN 42 H (9-20) mg/dL Creatinine 7.04 H* (0.66-1.25) mg/dL Glucose 102 H (74-99) mg/dL Assessment and Plan Assessment: Assessment: 1. End-stage renal disease maintained on hemodialysis on Monday schedule. 2. A-fib with RVR maintained on Cardizem drip. Cardiology following. Metoprolol dose increased. echo showed trace pericardial effusion. 3. 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 Phosphorus level 3.4 dated July 31, 2024. 4. Tobacco abuse. Plan: Hemodialysis on Monday per schedule.
[2024-08-05 06:07] LABS: HGB 13.5 gm/dL (13.0-17.5); MCH 30.4 pg (25.0-35.0); MCHC 32.9 g/dL (31.0-37.0); MCV 92.4 fL (80.0-100.0); Mean Platelet Volume 8.3; Platelet Count 167 k/uL (150-450); RBC 4.44 m/uL (4.30-5.90); WBC 9.8 k/uL (3.8-10.6)
[2024-08-05 06:47] LABS: ALT 49 U/L (4-49); AST 30 U/L (17-59); African American GFR (CKD) 7 (>60 ml/min/1.73 sqM); Alkaline Phosphatase 121 U/L (38-126); Anion Gap 7 mmol/L; Blood Urea Nitrogen 54 mg/dL (9-20); Calcium 9.8 mg/dL (8.4-10.2); Carbon Dioxide 26 mmol/L (22-30); Chloride 101 mmol/L (98-107); Glucose 91 mg/dL (74-99); Non-African American GFR(CKD) 6 (>60 ml/min/1.73 sqM); Sodium 134 mmol/L (137-145); Total Bilirubin 0.5 mg/dL (0.2-1.3); Total Protein 6.9 g/dL (6.3-8.2)
[2024-08-05 07:03] LABS: Potassium 6.2 mmol/L (3.5-5.1)
[2024-08-05] MEDS: DEXTROSE 50% SYRINGE 50 ML IVP STA (08:07)
[2024-08-05] MEDS: INSULIN REGULAR 100 UNIT/ML VIAL (IV) IV ONE (08:07)
[2024-08-05] MEDS: CALCIUM GLUCONATE IN NACL 2 GM in SALINE 1 100ML.BAG IVPB ONE (08:08)
[2024-08-05] MEDS: SODIUM BICARB 8.4% 50 ML SYR (1 MEQ/ML) IV STA (08:08)
[2024-08-05] MEDS: MIDODRINE 5 MG TAB PO PRN (09:15)
--- NOTE | 2024-08-05 13:17 | P.PN ---
Subjective Patient is seen for follow-up for end-stage renal disease. Currently seen on hemodialysis. Blood pressure had dropped significantly and patient is in the trendelenburg position. He has received fluid bolus and blood pressure has improved. Serum potassium was elevated at 6.2 today. Scheduled for cardioversion today. Objective - Vital Signs Vital signs: Vital Signs Temp 98.2 F 08/05/24 08:00 Pulse 103 H 08/05/24 11:52 Resp 16 08/05/24 11:52 BP 93/59 08/05/24 11:52 Pulse Ox 96 08/05/24 11:52 FiO2 Intake & Output 08/04/24 08/05/24 08/05/24 18:59 06:59 18:59 Intake Total 300 Output Total 500 450 Balance -200 -450 Weight 74.5 kg Intake: Oral 300 Output: Urine 500 450 Other: Voiding Method Urinal Urinal # Voids 1 # Bowel Movements 1 - Exam Patient is awake, comfortable, no acute distress Examination of the heart S1 and S2 Examination of the lungs bilateral breath sounds are heard Abdomen is soft nontender Examination lower extremity shows no evidence of edema PHOTORESIST PRINTER exam grossly intact - Labs CBC & Chem 7: 08/05/24 05:49 08/05/24 05:49 Labs: Abnormal Lab Results - Last 24 Hours (Table) 08/05/24 Range/Units 05:49 Sodium 134 L (137-145) mmol/L Potassium 6.2 H* (3.5-5.1) mmol/L BUN 54 H (9-20) mg/dL Creatinine 8.02 H* (0.66-1.25) mg/dL Assessment and Plan Assessment: 1. End-stage renal disease maintained on hemodialysis on Monday schedule. 2. A-fib with RVR status post Cardizem drip. Cardiology following. Scheduled for cardioversion today 3. 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 Phosphorus level 3.4 dated July 31, 2024. 4. Tobacco abuse. Plan: Repeat fluid bolus No UF today with hemodialysis Continue to monitor blood pressure posttreatment.
--- NOTE | 2024-08-05 14:14 | P.PN ---
Subjective Progress Note Date: 08/05/24 Hospital course: Patient is a Patient is a pleasant 68-year-old male with a past medical history of paroxysmal atrial fibrillation status post cardioversion on anticoagulation with Eliquis, hypertension, hyperlipidemia, and ESRD on hemodialysis Monday/Monday/Fridays. Patient presented to the emergency department with a chief complaint of chest pain. Patient was undergoing hemodialysis when he developed pain/pressure to midsternal chest accompanied by shortness of breath. Upon arrival to our facility, patient reports chest pain has fully resolved and he currently denies having any complaints. On arrival to our facility patient u nderwent evaluation in the emergency department. Vital signs on arrival show blood pressure 102/76, heart rate 105, respiratory rate 18, temp 98.0 F, and SpO2 of 98% on 2 L. EKG was completed showing atrial fibrillation with RVR to 136 bpm with T wave inversion in lateral leads I and aVL. Chest x-ray showing cardiomegaly with mild pulmonary vascular congestion and similar bibasilar opacities favored to represent atelectasis. Patient was given aspirin 324 mg p.o. x 1 dose in the emergency department along with Cardizem bolus followed by infusion. He was admitted under our services with consultation to cardiology and nephrology. Limited echocardiogram completed reporting trace pericardial effusion. Patient remained in A-fib RVR despite Cardizem infusion and amiodarone infusion. He is currently transitioning to oral amiodarone and metoprolol has been increased. Ventricular rate remains elevated but better controlled at 110s to 120's. Physical exam: Patient seen and fully evaluated at bedside this morning. Patient had an episode of severe symptomatic hypotension this morning during dialysis. During this episode patient's blood pressure became hypotensive in the 80s and midodrine was given and patient was placed in Trendelenburg position. At time of assessment, patient's blood pressure has improved and maintaining 110 systolic. Patient currently denies having any complaints or pain including headache, lightheadedness, dizziness, chest pain, palpitations, or shortness of breath. Vital signs reviewed and stable. General: Nontoxic, no distress and appears stated age. Derm: Skin warm and dry, normal coloration for ethnicity. Head: Atraumatic, normocephalic and symmetric. Eyes: EOM's intact, no lid lag, and anicteric sclera Mouth: no lip lesions, mucus membranes moist Cardiovascular: Irregularly irregular , no murmur, positive posterior tibial pulses bilaterally, and cap refill < 2 seconds. AV fistula left upper extremity. Lungs: Respirations even, regular, and unlabored on room air. Lungs CTA bilaterally, no rhonchi, no rales, no wheezing, and no accessory muscle usage. Abdominal: soft, nontender to palpation, no guarding, no appreciable organomegaly Ext: ROM intact. No gross muscle atrophy, no edema, no contractures Neuro: Speech clear, face symmetrical and CN II-XII grossly intact with no noted focal neuro deficits Psych: Alert and oriented to person, place, time, and situation. Appropriate and pleasant affect. Assessment and Plan of Care: Atrial fibrillation with persistent RVR Elevated troponin,likely secondary to RVR Chest pain, acute coronary event ruled out Trace pericardial effusion Hypertension Hyperlipidemia -Cardiology following, metoprolol increased to 100 mg 3 times daily and patient was started on oral amiodarone. Patient is ventricular rate remains elevated 110s to 120s. Awaiting further recommendations, possible cardioversion tomorrow. -Continue amiodarone 400 mg twice daily with plan to discharge home on amiodarone taper -Continue Eliquis 2.5 mg twice daily. -Telemetry monitoring -Cardiac diet -Continue cardiac medication regimen with , aspirin 81 mg daily, atorvastatin 20 mg nightly, and metoprolol 100 mg 3 times daily -Limited echo revealed trace pericardial effusion ESRD on hemodialysis Monday/Monday/Monday Hyperkalemia -BMP showing hyperkalemia with potassium of 6.2. Order placed for Lokelma 10 mg x 1 dose, calcium gluconate 2 g IVPB, sodium bicarb 1 amp, 10 units regular insulin IV, and 1 amp of dextrose. -Nephrology following, discussed plan of care with Dr. Santana. Stating she stopped removal of fluid with dialysis today and instrructed them to continue with filtration only secondary to his hyperkalemia. Data and imaging reviewed: -Labs completed and reviewed. CBC unremarkable. BMP showing sodium 134, potassium 6.2, BUN 54, creatinine 8.02, and GFR of 6. Magnesium 2.0. Liver profile unremarkable. -Vital signs reviewed. Blood pressure 113/82, heart rate 125, respiratory rate 18, temp 98.2 F, and SpO2 of 95% on room air. CODE STATUS: Full code DVT prophylaxis: Eliquis Discussed with: Patient, RN, and cover seamer Anticipated discharge date: Pending clinical course and control of persistent rapid ventricular rate Anticipated discharge place: Home Patient was seen independently by Nurse Pracitioner. This document was prepared using [employer] dictation software. Please allow for errors in spinning frame changer, while rare they do occur. Harpal Kaufman AMALGAMATOR rendered care for this patient independently, reviewed the findings and plan as documented in the note above and agree with plan. I did not physically speak with or examine the patient on this date. Objective - Vital Signs Vital signs: Vital Signs Temp 98.2 F 08/05/24 04:23 Pulse 119 H 08/05/24 04:23 Resp 17 08/05/24 04:23 BP 109/76 08/05/24 04:23 Pulse Ox 94 L 08/05/24 04:23 FiO2 Intake & Output 08/04/24 08/05/24 08/05/24 18:59 06:59 18:59 Intake Total 300 Output Total 500 450 Balance -200 -450 Weight 74.5 kg Intake: Oral 300 Output: Urine 500 450 Other: Voiding Method Urinal - Labs CBC & Chem 7: 08/05/24 05:49 08/05/24 05:49 Labs: Abnormal Lab Results - Last 24 Hours (Table) 08/04/24 08/04/24 08/05/24 Range/Units 09:09 09:09 05:49 RBC 4.16 L (4.30-5.90) m/uL Hgb 12.5 L (13.0-17.5) gm/dL Hct 38.1 L (39.0-53.0) % Sodium 134 L (137-145) mmol/L Potassium 6.2 H* (3.5-5.1) mmol/L BUN 42 H 54 H (9-20) mg/dL Creatinine 7.04 H* 8.02 H* (0.66-1.25) mg/dL Glucose 102 H (74-99) mg/dL
[2024-08-05 15:18] LABS: Hepatitis B Surface Antigen Nonreactive (Nonreactive)
--- NOTE | 2024-08-05 22:34 | P.PN ---
Subjective Progress Note Date: 08/05/24 The patient is a pleasant 68-year-old gentleman who is known to our service from before with a past medical history significant for end-stage renal disease currently on dialysis as well as paroxysmal atrial fibrillation and multiple comorbid conditions who was admitted from the dialysis center because of chest discomfort but the patient does not recall having any chest discomfort. He was noted to be in A-fib with RVR. He was transferred to the selective units. The troponin came to be mildly elevated August 01, 2024 Patient was seen and evaluated this morning. He is currently asymptomatic. He denies any chest pain now or before. He underwent a stress test in the year of 2023 came in to be unremarkable for ischemia. The most recent echo from April 2024 showed normal LV systolic function. He is in A-fib with RVR and he is currently on Cardizem at 5 mg/h. He is also on beta-parvez. He is on heparin IV. The physical examination is remarkable for irregular rhythm with a systolic murmur at the right upper sternal border with bilateral expiratory wheezing and no edema was noted in the lower extremities August 02, 2024 The patient was seen and evaluated this morning. He remains in atrial fibrillation with uncontrolled heart rate. He is on Cardizem IV. I am going to increase the dose of beta-parvez. Continue heparin IV and consider switching the patient to oral anticoagulation. Follow-up on the echocardiogram which was performed. The physical examination is remarkable for irregular rhythm with a soft systolic murmur and clear within sounds bilaterally and no edema was noted August 03, 2024 The patient was seen and evaluated this morning. He is asymptomatic. The p ressure is soft. He remains in atrial fibrillation with RVR in spite of being on Cardizem IV. I am going to DC the Cardizem IV and start the patient on amiodarone IV and switch him to oral amiodarone. Also stop the heparin IV and start the patient on oral anticoagulation. The physical examination is remarkable for irregular rhythm with a systolic murmur and clear breathing sounds bilaterally and no edema was noted. He underwent dialysis yesterday with removal of 1.5 L. The echo showed trace pericardial effusion August 04, 2024 The patient was seen and evaluated this morning with he is in atrial fibrillation with uncontrolled heart rate. He is on amiodarone IV which and going to switch him to amiodarone orally and increase the dose of beta-parvez. In the past post cardioversion he was bradycardic based on the history in the chart. He is asymptomatic from a cardiovascular standpoint of view. Hemodynamically he is stable beside the tachycardia with atrial fibrillation. He is on oral anticoagulation. The physical examination is remarkable for irregular rhythm with a soft systolic murmur and clear breathing sounds bilaterally and no edema was noted in the lower extremities 08/05/2024 BP 100/71, heart rate 130 bpm, atrial fibrillation with RVR Hb 13.5, potassium 6.2, BUN 54, creatinine 8.02 Patient had hemodialysis today Though patient has atrial fibrillation however patient denies any symptoms of palpitation or substernal chest pressure at this time. ASSESSMENT: Chest discomfort but the patient denies any chest discomfort now or before Paroxysmal atrial fibrillation and currently the patient is in atrial fibrillation with RVR History of TONEY and cardioversion, March 2024 with subsequent significant bradycardia and pauses requiring external pacing, atropine, and epinephrine End-stage renal disease on hemodialysis Hypertension Hyperlipidemia PLAN: Aspirin, Eliquis 2.5 mg twice daily, Lipitor 20 mg Amiodarone 400 mg twice daily, metoprolol 100 mg 3 times daily Patient has had significant bradycardia with cardioversion in the past. Will refrain from DCCV at this time. At this time patient is asymptomatic from A-fib and will be continue to monitor If patient did not respond to amiodarone by tomorrow, may consider adding low dose digoxin. Other options to consider propafenone Objective - Vital Signs Vital signs: Vital Signs Temp 98.3 F 08/05/24 20:12 Pulse 131 H 08/05/24 20:12 Resp 16 08/05/24 20:12 BP 100/71 08/05/24 20:12 Pulse Ox 94 L 08/05/24 20:12 FiO2 Intake & Output 08/05/24 08/05/24 08/06/24 06:59 18:59 06:59 Intake Total 2376 Output Total 450 1600 Balance -450 776 Weight 74.5 kg Intake: Oral 776 Hemodialysis 1600 Output: Urine 450 Hemodialysis 600 Hemodialysis Net Amount 1000 Other: Voiding Method Urinal Urinal Urinal # Voids 1 # Bowel Movements 1 - Labs CBC & Chem 7: 08/05/24 05:49 08/05/24 05:49 Labs: Abnormal Lab Results - Last 24 Hours (Table) 08/05/24 08/05/24 Range/Units 05:49 05:49 Sodium 134 L (137-145) mmol/L Potassium 6.2 H* (3.5-5.1) mmol/L BUN 54 H (9-20) mg/dL Creatinine 8.02 H* (0.66-1.25) mg/dL Hep Bs Antibody A (Negative)
[2024-08-06 08:33] LABS: HCT 35.4 % (39.0-53.0); HGB 11.5 gm/dL (13.0-17.5); MCH 30.2 pg (25.0-35.0); MCHC 32.6 g/dL (31.0-37.0); MCV 92.7 fL (80.0-100.0); Platelet Count 154 k/uL (150-450); RBC 3.82 m/uL (4.30-5.90); RDW 14.1 % (11.5-15.5); WBC 10.4 k/uL (3.8-10.6)
[2024-08-06 08:44] LABS: African American GFR (CKD) 9 (>60 ml/min/1.73 sqM); Anion Gap 7 mmol/L; Blood Urea Nitrogen 42 mg/dL (9-20); Calcium 9.4 mg/dL (8.4-10.2); Carbon Dioxide 31 mmol/L (22-30); Chloride 99 mmol/L (98-107); Glucose 93 mg/dL (74-99); Magnesium 1.9 mg/dL (1.6-2.3); Non-African American GFR(CKD) 8 (>60 ml/min/1.73 sqM); Potassium 4.9 mmol/L (3.5-5.1); Sodium 137 mmol/L (137-145)
[2024-08-06 11:05] VITALS: BMI 28.0
[2024-08-06 11:23] LABS: Glucose,Whole Blood 145 mg/dL (70-110)
--- NOTE | 2024-08-06 11:58 | P.PN ---
Subjective Patient is seen for follow-up for end-stage renal disease. Status post hemodialysis yesterday with UF of 1 L however I believe patient received fluids due to severe hypotension. No significant complaints today. Objective - Vital Signs Vital signs: Vital Signs Temp 97.9 F 08/06/24 07:34 Pulse 129 H 08/06/24 07:34 Resp 20 08/06/24 07:34 BP 109/60 08/06/24 07:34 Pulse Ox 95 08/06/24 07:34 FiO2 Intake & Output 08/05/24 08/06/24 08/06/24 18:59 06:59 18:59 Intake Total 2376 240 Output Total 1600 500 300 Balance 776 -500 -60 Weight 74 kg 74 kg Intake: Oral 776 240 Hemodialysis 1600 Output: Urine 500 300 Hemodialysis 600 Hemodialysis Net Amount 1000 Other: Voiding Method Urinal Urinal Urinal # Voids 1 # Bowel Movements 1 - Exam Patient is awake, comfortable, no acute distress Examination of the heart S1 and S2 Examination of the lungs bilateral breath sounds are heard Abdomen is soft nontender Examination lower extremity shows no evidence of edema LEAD SYSTEMS ARCHITECT exam grossly intact - Labs CBC & Chem 7: 08/06/24 07:38 08/06/24 07:38 Labs: Abnormal Lab Results - Last 24 Hours (Table) 08/05/24 08/06/24 08/06/24 Range/Units 05:49 07:38 07:38 RBC 3.82 L (4.30-5.90) m/uL Hgb 11.5 L (13.0-17.5) gm/dL Hct 35.4 L (39.0-53.0) % Carbon Dioxide 31 H (22-30) mmol/L BUN 42 H (9-20) mg/dL Creatinine 6.76 H (0.66-1.25) mg/dL POC Glucose (mg/dL) (70-110) mg/dL Hep Bs Antibody A (Negative) 08/06/24 Range/Units 11:21 RBC (4.30-5.90) m/uL Hgb (13.0-17.5) gm/dL Hct (39.0-53.0) % Carbon Dioxide (22-30) mmol/L BUN (9-20) mg/dL Creatinine (0.66-1.25) mg/dL POC Glucose (mg/dL) 145 H (70-110) mg/dL Hep Bs Antibody (Negative) Assessment and Plan Assessment: 1. End-stage renal disease maintained on hemodialysis on Monday schedule. 2. A-fib with RVR status post Cardizem drip. Cardiology following. 3. 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 Phosphorus level 3.4 dated July 31, 2024. 4. Tobacco abuse. Plan: Hemodialysis on Monday schedule. No significant UF with dialysis tomorrow.
[2024-08-06] MEDS: DIGOXIN 125 MCG TAB PO STA (12:44)
--- NOTE | 2024-08-06 13:46 | P.PN ---
Subjective Progress Note Date: 08/06/24 The patient is a pleasant 68-year-old gentleman who is known to our service from before with a past medical history significant for end-stage renal disease currently on dialysis as well as paroxysmal atrial fibrillation and multiple comorbid conditions who was admitted from the dialysis center because of chest discomfort but the patient does not recall having any chest discomfort. He was noted to be in A-fib with RVR. He was transferred to the selective units. The troponin came to be mildly elevated August 01, 2024 Patient was seen and evaluated this morning. He is currently asymptomatic. He denies any chest pain now or before. He underwent a stress test in the year of 2023 came in to be unremarkable for ischemia. The most recent echo from April 2024 showed normal LV systolic function. He is in A-fib with RVR and he is currently on Cardizem at 5 mg/h. He is also on beta-parvez. He is on heparin IV. The physical examination is remarkable for irregular rhythm with a systolic murmur at the right upper sternal border with bilateral expiratory wheezing and no edema was noted in the lower extremities August 02, 2024 The patient was seen and evaluated this morning. He remains in atrial fibrillation with uncontrolled heart rate. He is on Cardizem IV. I am going to increase the dose of beta-parvez. Continue heparin IV and consider switching the patient to oral anticoagulation. Follow-up on the echocardiogram which was performed. The physical examination is remarkable for irregular rhythm with a soft systolic murmur and clear within sounds bilaterally and no edema was noted August 03, 2024 The patient was seen and evaluated this morning. He is asymptomatic. The p ressure is soft. He remains in atrial fibrillation with RVR in spite of being on Cardizem IV. I am going to DC the Cardizem IV and start the patient on amiodarone IV and switch him to oral amiodarone. Also stop the heparin IV and start the patient on oral anticoagulation. The physical examination is remarkable for irregular rhythm with a systolic murmur and clear breathing sounds bilaterally and no edema was noted. He underwent dialysis yesterday with removal of 1.5 L. The echo showed trace pericardial effusion August 04, 2024 The patient was seen and evaluated this morning with he is in atrial fibrillation with uncontrolled heart rate. He is on amiodarone IV which and going to switch him to amiodarone orally and increase the dose of beta-parvez. In the past post cardioversion he was bradycardic based on the history in the chart. He is asymptomatic from a cardiovascular standpoint of view. Hemodynamically he is stable beside the tachycardia with atrial fibrillation. He is on oral anticoagulation. The physical examination is remarkable for irregular rhythm with a soft systolic murmur and clear breathing sounds bilaterally and no edema was noted in the lower extremities 08/05/2024 BP 100/71, heart rate 130 bpm, atrial fibrillation with RVR Hb 13.5, potassium 6.2, BUN 54, creatinine 8.02 Patient had hemodialysis today Though patient has atrial fibrillation however patient denies any symptoms of palpitation or substernal chest pressure at this time. 08/06/2024 BP 98/65, heart rate 124 bpm, atrial fibrillation with RVR Plan for hemodialysis tomorrow. No plan for hemodialysis today The patient is in atrial fibrillation denies any symptoms of palpitation chest pain or shortness of breath. ASSESSMENT: Chest discomfort but the patient denies any chest discomfort now or before Paroxysmal atrial fibrillation and currently the patient is in atrial fibrillation with RVR History of TONEY and cardioversion, March 2024 with subsequent significant bradycardia and pauses requiring external pacing, atropine, and epinephrine End-stage renal disease on hemodialysis Hypertension Hyperlipidemia PLAN: Aspirin, Eliquis 2.5 mg twice daily, Lipitor 20 mg Reduce amiodarone to 200 mg twice daily. After 1 week that is on 08/13/2024 reduce it to 200 mg daily. Patient has had multiple amiodarone loads and previously has had significant bradycardia therefore we will be cautious with high dose of amiodarone. Because he is failing to achieve rate control, will give him 1 dose of digoxin 0.125 mg. Continue to monitor telemetry and electrolytes Continue metoprolol 100 mg 3 times daily Patient has had significant bradycardia with cardioversion in the past. Will refrain from DCCV at this time. At this time patient is asymptomatic from A-fib No clinical response, other options is to consider propafenone Objective - Vital Signs Vital signs: Vital Signs Temp 97.9 F 08/06/24 07:34 Pulse 124 H 08/06/24 12:43 Resp 18 08/06/24 11:00 BP 98/65 08/06/24 12:43 Pulse Ox 93 L 08/06/24 11:00 FiO2 Intake & Output 08/05/24 08/06/24 08/06/24 18:59 06:59 18:59 Intake Total 2376 240 Output Total 1600 500 300 Balance 776 -500 -60 Weight 74 kg 74 kg Intake: Oral 776 240 Hemodialysis 1600 Output: Urine 500 300 Hemodialysis 600 Hemodialysis Net Amount 1000 Other: Voiding Method Urinal Urinal Urinal # Voids 1 # Bowel Movements 1 - Labs CBC & Chem 7: 08/06/24 07:38 08/06/24 07:38 Labs: Abnormal Lab Results - Last 24 Hours (Table) 08/05/24 08/06/24 08/06/24 Range/Units 05:49 07:38 07:38 RBC 3.82 L (4.30-5.90) m/uL Hgb 11.5 L (13.0-17.5) gm/dL Hct 35.4 L (39.0-53.0) % Carbon Dioxide 31 H (22-30) mmol/L BUN 42 H (9-20) mg/dL Creatinine 6.76 H (0.66-1.25) mg/dL POC Glucose (mg/dL) (70-110) mg/dL Hep Bs Antibody A (Negative) 08/06/24 Range/Units 11:21 RBC (4.30-5.90) m/uL Hgb (13.0-17.5) gm/dL Hct (39.0-53.0) % Carbon Dioxide (22-30) mmol/L BUN (9-20) mg/dL Creatinine (0.66-1.25) mg/dL POC Glucose (mg/dL) 145 H (70-110) mg/dL Hep Bs Antibody (Negative)
--- NOTE | 2024-08-06 17:00 | P.PN ---
Subjective Progress Note Date: 08/06/24 Patient was seen and examined. Telemetry shows HR in the 130s. CBC and BMP significant for RBC 3.82, Hg 11.5, Hct 35.4, bicarb 31, BUN 42, Cr 6.76. Mag 1.9. General: non toxic, no distress, appears at stated age Derm: warm, dry Head: atraumatic, normocephalic, symmetric Mouth: no lip lesion, mucus membranes moist Cardiovascular: S1S2 ireg, no murmur Lungs: Decreased BS bilaterally, no rales , no accessory muscle use Ext: no gross muscle atrophy, no edema, no contractures Neuro: no focal neuro deficits Psych: Alert and oriented. Based on my assessment of this patient, this patient meets a high complexity level of care. Atrial fibrillation with persistent RVR Elevated troponin,likely secondary to RVR Chest pain, acute coronary event ruled out Trace pericardial effusion Hypertension Hyperlipidemia -Cardiology following, metoprolol increased to 100 mg 3 times daily and patient was started on amiodarone 200 mg PO BID. Patient is ventricular rate remains elevated 130ss. Awaiting further recommendations, possible propafenone tomorrow. -Continue amiodarone 200 mg twice daily with plan to discharge home on amiodarone taper -Continue Eliquis 2.5 mg twice daily. -Telemetry monitoring -Cardiac diet -Continue cardiac medication regimen with , aspirin 81 mg daily, atorvastatin 20 mg nightly, and metoprolol 100 mg 3 times daily -Limited echo revealed trace pericardial effusion ESRD on hemodialysis Monday/Monday/Monday -Nephrology on board, HD MW. CODE STATUS: FULL CODE. DVT Prophylaxis: Eliquis. GI Prophylaxis: Protonix PO Designated medical POA if patient is not able to make medical decisions for themselves: I have reviewed the following data processing systems consultant notes: Cardio, Nephro note. I have reviewed the results of the following tests: CBC, BMP. I have ordered the following tests: BMP in the AM. I have discussed the care of this patient with the following independent historian: I have independently interpreted the following test below: I have discussed the management of this patient with the following physician: Objective - Vital Signs Vital signs: Vital Signs Temp 98.1 F 08/06/24 15:03 Pulse 120 H 08/06/24 15:03 Resp 20 08/06/24 15:03 BP 115/78 08/06/24 15:03 Pulse Ox 97 08/06/24 15:03 FiO2 Intake & Output 08/05/24 08/06/24 08/06/24 18:59 06:59 18:59 Intake Total 2376 420 Output Total 1600 500 300 Balance 776 -500 120 Weight 74 kg 74 kg Intake: Oral 776 420 Hemodialysis 1600 Output: Urine 500 300 Hemodialysis 600 Hemodialysis Net Amount 1000 Other: Voiding Method Urinal Urinal Urinal # Voids 1 1 # Bowel Movements 1 - Labs CBC & Chem 7: 08/06/24 07:38 08/06/24 07:38 Labs: Abnormal Lab Results - Last 24 Hours (Table) 08/06/24 08/06/24 08/06/24 Range/Units 07:38 07:38 11:21 RBC 3.82 L (4.30-5.90) m/uL Hgb 11.5 L (13.0-17.5) gm/dL Hct 35.4 L (39.0-53.0) % Carbon Dioxide 31 H (22-30) mmol/L BUN 42 H (9-20) mg/dL Creatinine 6.76 H (0.66-1.25) mg/dL POC Glucose (mg/dL) 145 H (70-110) mg/dL
[2024-08-06] MEDS: AMIODARONE 200 MG TAB PO SCH (20:07)
[2024-08-07 08:20] LABS: African American GFR (CKD) 7 (>60 ml/min/1.73 sqM); Anion Gap 12 mmol/L; Blood Urea Nitrogen 51 mg/dL (9-20); Calcium 9.4 mg/dL (8.4-10.2); Carbon Dioxide 26 mmol/L (22-30); Chloride 99 mmol/L (98-107); Glucose 128 mg/dL (74-99); Non-African American GFR(CKD) 6 (>60 ml/min/1.73 sqM); Sodium 137 mmol/L (137-145)
--- NOTE | 2024-08-07 11:34 | P.PN ---
Subjective Progress Note Date: 08/07/24 Patient was seen and examined. Doing well. Undergoing HD. Telemetry shows HR in the 120s. BMP significant for BUN 51, Cr 8.05, glu 128. EKG done today shows persistent AFib with RVR. General: non toxic, no distress, appears at stated age Derm: warm, dry Head: atraumatic, normocephalic, symmetric Mouth: no lip lesion, mucus membranes moist Cardiovascular: S1S2 ireg, no murmur Lungs: Decreased BS bilaterally, no rales , no accessory muscle use Ext: no gross muscle atrophy, no edema, no contractures Neuro: no focal neuro deficits Psych: Alert and oriented. Based on my assessment of this patient, this patient meets a high complexity level of care. Atrial fibrillation with persistent RVR Elevated troponin,likely secondary to RVR Chest pain, acute coronary event ruled out Trace pericardial effusion Hypertension Hyperlipidemia -Cardiology following -Tabsmuskws061 mg 3 times daily, amiodarone 200 mg PO BID. Patient is ventricular rate remains elevated 120s. Awaiting further Cardiology recomm endations. -Continue Eliquis 2.5 mg twice daily. -Telemetry monitoring -Cardiac diet -Continue cardiac medication regimen with aspirin 81 mg daily, atorvastatin 20 mg nightly, and metoprolol 100 mg 3 times daily -Limited echo revealed trace pericardial effusion ESRD on hemodialysis Monday/Monday/Monday -Nephrology on board, HD [facility]. CODE STATUS: FULL CODE. DVT Prophylaxis: Eliquis. GI Prophylaxis: Protonix PO Designated medical POA if patient is not able to make medical decisions for themselves: I have reviewed the following healthcare network consultant notes: I have reviewed the results of the following tests: BMP. I have ordered the following tests: BMP in the AM. I have discussed the care of this patient with the following independent historian: I have independently interpreted the following test below: EKG I have discussed the management of this patient with the following physician: Objective - Vital Signs Vital signs: Vital Signs Temp 97.6 F 08/07/24 07:19 Pulse 122 H 08/07/24 07:19 Resp 20 08/07/24 07:19 BP 107/78 08/07/24 07:19 Pulse Ox 93 L 08/07/24 07:57 FiO2 Intake & Output 08/06/24 08/07/24 08/07/24 18:59 06:59 18:59 Intake Total 600 240 Output Total 300 725 Balance 300 -725 240 Weight 74 kg 76 kg Intake: Oral 600 240 Output: Urine 300 725 Other: Voiding Method Urinal Urinal Urinal # Voids 1 3 # Bowel Movements 2 - Labs CBC & Chem 7: 08/06/24 07:38 08/07/24 07:44 Labs: Abnormal Lab Results - Last 24 Hours (Table) 08/07/24 Range/Units 07:44 BUN 51 H (9-20) mg/dL Creatinine 8.05 H* (0.66-1.25) mg/dL Glucose 128 H (74-99) mg/dL
[2024-08-07] MEDS: MIDODRINE 5 MG TAB PO STA (12:14)
--- NOTE | 2024-08-07 12:20 | P.PN ---
Subjective HISTORY OF PRESENT ILLNESS: This is a 68-year-old male with a past medical history significant for hypertension, hyperlipidemia, atrial fibrillation, and end-stage renal disease on hemodialysis. Patient follows in the office with Dr. Blandon. We have been asked to see the patient in consultation for chest pain. Patient examined at the bedside in the emergency room. Patient was at hemodialysis today when he started to have chest pain and shortness of breath. He was unable to finish his dialysis treatment and he was sent to the emergency room for further evaluation. Patient was found to be in A-fib with RVR and was started on IV Cardizem. At the time of examination he denies any chest pain or pressure. DIAGNOSTICS: - EKG reveals A-fib with RVR. - Chest xray cardiomegaly mild pulmonary vascular congestion. Similar bibasilar opacities favored to represent atelectasis versus like likely infiltrates - Laboratory data: WBC 9.9. Hemoglobin 12.9. Platelet count 151. Sodium 138. Potassium 4.1. BUN 29. Creatinine 4.0. Magnesium 1.7. Troponin negative x 1 - Current home cardiac medication list has not been updated at the time of dictation - Most recent echocardiogram obtained in April 2024 revealed ejection fraction 50 to 55%, no obvious regional wall motion abnormalities, mild MR - Patient underwent TONEY and cardioversion March 2024. Post cardioversion patient had significant pause and bradycardia with heart rates in the 20s and 30s. He required external pacing, atropine, and epinephrine. - Patient underwent Lexiscan stress test in July 2023 revealing manage defect involving the apical lateral myocardium with no definite reversible area of ischemia August 01, 2024 Patient was seen and evaluated this morning. He is currently asymptomatic. He denies any chest pain now or before. He underwent a stress test in the year of 2023 came in to be unremarkable for ischemia. The most recent echo from April 2024 showed normal LV systolic function. He is in A-fib with RVR and he is currently on Cardizem at 5 mg/h. He is also on beta-parvez. He is on heparin IV. The physical examination is remarkable for irregular rhythm with a systolic murmur at the right upper sternal border with bilateral expiratory wheezing and no edema was noted in the lower extremities August 02, 2024 The patient was seen and evaluated this morning. He remains in atrial fibrillation with uncontrolled heart rate. He is on Cardizem IV. I am going to increase the dose of beta-parvez. Continue heparin IV and consider switching the patient to oral anticoagulation. Follow-up on the echocardiogram which was performed. The physical examination is remarkable for irregular rhythm with a soft systolic murmur and clear within sounds bilaterally and no edema was noted August 03, 2024 The patient was seen and evaluated this morning. He is asymptomatic. The pressure is soft. He remains in atrial fibrillation with RVR in spite of being on Cardizem IV. I am going to DC the Cardizem IV and start the patient on amiodarone IV and switch him to oral amiodarone. Also stop the heparin IV and start the patient on oral anticoagulation. The physical examination is remarkable for irregular rhythm with a systolic murmur and clear breathing sounds bilaterally and no edema was noted. He underwent dialysis yesterday with removal of 1.5 L. The echo showed trace pericardial effusion August 04, 2024 The patient was seen and evaluated this morning with he is in atrial fibrillation with uncontrolled heart rate. He is on amiodarone IV which and going to switch him to amiodarone orally and increase the dose of beta-parvez. In the past post cardioversion he was bradycardic based on the history in the chart. He is asymptomatic from a cardiovascular standpoint of view. Hemodynamically he is stable beside the tachycardia with atrial fibrillation. He is on oral anticoagulation. The physical examination is remarkable for irregular rhythm with a soft systolic murmur and clear breathing sounds bilaterally and no edema was noted in the lower extremities 08/05/2024 BP 100/71, heart rate 130 bpm, atrial fibrillation with RVR Hb 13.5, potassium 6.2, BUN 54, creatinine 8.02 Patient had hemodialysis today Though patient has atrial fibrillation however patient denies any symptoms of palpitation or substernal chest pressure at this time. 08/06/2024 BP 98/65, heart rate 124 bpm, atrial fibrillation with RVR Plan for hemodialysis tomorrow. No plan for hemodialysis today The patient is in atrial fibrillation denies any symptoms of palpitation chest pain or shortness of breath. 08/07/2024 Patient examined this morning at the bedside. Patient currently denies chest pain or pressure. He denies shortness of breath. Patient remains in atrial fibrillation with RVR with heart rate in the 120s. He denies any palpitations. Denies any dizziness or lightheadedness. Patient is currently on metoprolol tartrate 100 mg 3 times daily and amiodarone 200 mg twice a day. Patient is scheduled to undergo hemodialysis today. PHYSICAL EXAM: VITAL SIGNS: Reviewed. GENERAL: Well-developed in no acute distress. HEENT: Head is normocephalic. Pupils are equal, round. Sclerae anicteric. Mucous membranes of the mouth are moist. Neck supple. No JVD or thyromegaly LUNGS: Respirations even and unlabored. Lungs essentially clear to auscultation bilaterally. HEART: Tachycardic. Irregular rate and rhythm. S1 and S2 heard. ABDOMEN: Soft. Nondistended. Nontender. EXTREMITIES: Normal range of motion. No clubbing or cyanosis. Peripheral pulses intact. No lower extremity edema NEUROLOGIC: Awake and alert. Oriented x 3. ASSESSMENT: Chest pain, ACS ruled out Paroxysmal atrial fibrillation with RVR History of TONEY and cardioversion, March 2024 with subsequent significant bradycardia and pauses requiring external pacing, atropine, and epinephrine End-stage renal disease on hemodialysis Hypertension Hyperlipidemia PLAN: Case discussed with Dr. 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 No plans for cardioversion at this time Continue current cardiac medications including amiodarone, Eliquis, aspirin, Lipitor, metoprolol, and midodrine PRN Continue telemetry monitoring Further recommendations pending patient course Nurse practitioner note has been reviewed by physician. Signing provider agrees with the documented findings, assessment, and plan of care documented by M[employer] SCI[employer] DEPARTMENT CHAIR as a scribe. Objective - Vital Signs Vital signs: Vital Signs Temp 97.6 F 08/07/24 07:19 Pulse 122 H 08/07/24 07:19 Resp 20 08/07/24 07:19 BP 83/52 08/07/24 12:12 Pulse Ox 93 L 08/07/24 07:57 FiO2 Intake & Output 08/06/24 08/07/24 08/07/24 18:59 06:59 18:59 Intake Total 600 240 Output Total 300 725 Balance 300 -725 240 Weight 74 kg 76 kg Intake: Oral 600 240 Output: Urine 300 725 Other: Voiding Method Urinal Urinal Urinal # Voids 1 3 # Bowel Movements 2 - Labs CBC & Chem 7: 08/06/24 07:38 08/07/24 07:44 Labs: Abnormal Lab Results - Last 24 Hours (Table) 08/07/24 Range/Units 07:44 BUN 51 H (9-20) mg/dL Creatinine 8.05 H* (0.66-1.25) mg/dL Glucose 128 H (74-99) mg/dL
--- NOTE | 2024-08-07 12:49 | P.PN ---
Subjective Patient is seen for follow-up for end-stage renal disease. Starting hemodialysis No significant complaints today. Heart rate remains high, 120 -122 Objective - Vital Signs Vital signs: Vital Signs Temp 97.8 F 08/07/24 11:01 Pulse 122 H 08/07/24 11:01 Resp 18 08/07/24 11:01 BP 83/52 08/07/24 12:12 Pulse Ox 94 L 08/07/24 11:01 FiO2 Intake & Output 08/06/24 08/07/24 08/07/24 18:59 06:59 18:59 Intake Total 600 240 Output Total 300 725 Balance 300 -725 240 Weight 74 kg 76 kg Intake: Oral 600 240 Output: Urine 300 725 Other: Voiding Method Urinal Urinal Urinal # Voids 1 3 # Bowel Movements 2 - Exam Patient is awake, comfortable, no acute distress Examination of the heart S1 and S2 Examination of the lungs bilateral breath sounds are heard Abdomen is soft nontender Examination lower extremity shows no evidence of edema SALON LEADER exam grossly intact - Labs CBC & Chem 7: 08/06/24 07:38 08/07/24 07:44 Labs: Abnormal Lab Results - Last 24 Hours (Table) 08/07/24 Range/Units 07:44 BUN 51 H (9-20) mg/dL Creatinine 8.05 H* (0.66-1.25) mg/dL Glucose 128 H (74-99) mg/dL Assessment and Plan Assessment: 1. End-stage renal disease maintained on hemodialysis on Monday schedule. 2. A-fib with RVR status post Cardizem drip. Cardiology following. 3. 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 Phosphorus level 3.4 dated July 31, 2024. 4. Tobacco abuse. Plan: Hemodialysis on Monday schedule. No significant UF with dialysis today.
[2024-08-08] MEDS: DILTIAZEM 125 MG in SODIUM CHLORIDE 0.9% 100 ML IV SCH (10:22)
--- NOTE | 2024-08-08 11:17 | P.PN ---
Subjective Progress Note Date: 08/08/24 Patient was seen and examined. Doing well. Telemetry shows HR in the 120s. EKG done today shows persistent AFib with RVR. Started on Cardizem drip running at 5 mg/hr. General: non toxic, no distress, appears at stated age Derm: warm, dry Head: atraumatic, normocephalic, symmetric Mouth: no lip lesion, mucus membranes moist Cardiovascular: S1S2 ireg, no murmur Lungs: Decreased BS bilaterally, no rales , no accessory muscle use Ext: no gross muscle atrophy, no edema, no contractures Neuro: no focal neuro deficits Psych: Alert and oriented. Based on my assessment of this patient, this patient meets a high complexity level of care. Atrial fibrillation with persistent RVR Elevated troponin likely secondary to RVR Chest pain Trace pericardial effusion Hypertension Hyperlipidemia -Cardiology following -Metoprolol 100 mg 3 times daily, amiodarone 200 mg PO BID. + Cardizem 5 mg/hr. Patient is ventricular rate remains elevated 120s. Awaiting further Cardiology recommendations. -Continue Eliquis 2.5 mg twice daily. -Telemetry monitoring -Cardiac diet -Continue cardiac medication regimen with aspirin 81 mg daily, atorvastatin 20 mg nightly, and metoprolol 100 mg 3 times daily -Limited echo revealed trace pericardial effusion ESRD on hemodialysis Monday/Monday/Monday -Nephrology on board, HD [facility]. CODE STATUS: FULL CODE. DVT Prophylaxis: Eliquis. GI Prophylaxis: Protonix PO Designated medical POA if patient is not able to make medical decisions for themselves: I have reviewed the following php consultant notes: Cardiology. I have reviewed the results of the following tests: I have ordered the following tests: I have discussed the care of this patient with the following independent historian: RN regarding plan of care. I have independently interpreted the following test below: EKG I have discussed the management of this patient with the following physician: Objective - Vital Signs Vital signs: Vital Signs Temp 98.2 F 08/08/24 08:19 Pulse 125 H 08/08/24 10:53 Resp 17 08/08/24 08:19 BP 100/69 08/08/24 10:53 Pulse Ox 95 08/08/24 08:19 FiO2 Intake & Output 08/07/24 08/08/24 08/08/24 18:59 06:59 18:59 Intake Total 1420 2.667 Output Total 850 700 400 Balance 570 -700 -397.333 Weight 75.5 kg Intake: Intake, IV Titration 2.667 Amount Diltiazem 125 mg In 2.667 Sodium Chloride 0.9% 100 ml @ 5 MG/HR 5 mls/hr IV .Q24H [facility] Rx#:[id number] Oral 720 Hemodialysis 700 Output: Urine 150 700 400 Hemodialysis 300 Hemodialysis Net Amount 400 Other: Voiding Method Urinal Urinal Toilet Urinal # Voids 1 - Labs CBC & Chem 7: 08/06/24 07:38 08/07/24 07:44
--- NOTE | 2024-08-08 11:35 | P.PN ---
Subjective HISTORY OF PRESENT ILLNESS: This is a 68-year-old male with a past medical history significant for hypertension, hyperlipidemia, atrial fibrillation, and end-stage renal disease on hemodialysis. Patient follows in the office with Dr. Blandon. We have been asked to see the patient in consultation for chest pain. Patient examined at the bedside in the emergency room. Patient was at hemodialysis today when he started to have chest pain and shortness of breath. He was unable to finish his dialysis treatment and he was sent to the emergency room for further evaluation. Patient was found to be in A-fib with RVR and was started on IV Cardizem. At the time of examination he denies any chest pain or pressure. DIAGNOSTICS: - EKG reveals A-fib with RVR. - Chest xray cardiomegaly mild pulmonary vascular congestion. Similar bibasilar opacities favored to represent atelectasis versus like likely infiltrates - Laboratory data: WBC 9.9. Hemoglobin 12.9. Platelet count 151. Sodium 138. Potassium 4.1. BUN 29. Creatinine 4.0. Magnesium 1.7. Troponin negative x 1 - Current home cardiac medication list has not been updated at the time of dictation - Most recent echocardiogram obtained in April 2024 revealed ejection fraction 50 to 55%, no obvious regional wall motion abnormalities, mild MR - Patient underwent TONEY and cardioversion March 2024. Post cardioversion patient had significant pause and bradycardia with heart rates in the 20s and 30s. He required external pacing, atropine, and epinephrine. - Patient underwent Lexiscan stress test in July 2023 revealing manage defect involving the apical lateral myocardium with no definite reversible area of ischemia August 01, 2024 Patient was seen and evaluated this morning. He is currently asymptomatic. He denies any chest pain now or before. He underwent a stress test in the year of 2023 came in to be unremarkable for ischemia. The most recent echo from April 2024 showed normal LV systolic function. He is in A-fib with RVR and he is currently on Cardizem at 5 mg/h. He is also on beta-parvez. He is on heparin IV. The physical examination is remarkable for irregular rhythm with a systolic murmur at the right upper sternal border with bilateral expiratory wheezing and no edema was noted in the lower extremities August 02, 2024 The patient was seen and evaluated this morning. He remains in atrial fibrillation with uncontrolled heart rate. He is on Cardizem IV. I am going to increase the dose of beta-parevz. Continue heparin IV and consider switching the patient to oral anticoagulation. Follow-up on the echocardiogram which was performed. The physical examination is remarkable for irregular rhythm with a soft systolic murmur and clear within sounds bilaterally and no edema was noted August 03, 2024 The patient was seen and evaluated this morning. He is asymptomatic. The pressure is soft. He remains in atrial fibrillation with RVR in spite of being on Cardizem IV. I am going to DC the Cardizem IV and start the patient on amiodarone IV and switch him to oral amiodarone. Also stop the heparin IV and start the patient on oral anticoagulation. The physical examination is remarkable for irregular rhythm with a systolic murmur and clear breathing sounds bilaterally and no edema was noted. He underwent dialysis yesterday with removal of 1.5 L. The echo showed trace pericardial effusion August 04, 2024 The patient was seen and evaluated this morning with he is in atrial fibrillation with uncontrolled heart rate. He is on amiodarone IV which and going to switch him to amiodarone orally and increase the dose of beta-parvez. In the past post cardioversion he was bradycardic based on the history in the chart. He is asymptomatic from a cardiovascular standpoint of view. Hemodynamically he is stable beside the tachycardia with atrial fibrillation. He is on oral anticoagulation. The physical examination is remarkable for irregular rhythm with a soft systolic murmur and clear breathing sounds bilaterally and no edema was noted in the lower extremities 08/05/2024 BP 100/71, heart rate 130 bpm, atrial fibrillation with RVR Hb 13.5, potassium 6.2, BUN 54, creatinine 8.02 Patient had hemodialysis today Though patient has atrial fibrillation however patient denies any symptoms of palpitation or substernal chest pressure at this time. 08/06/2024 BP 98/65, heart rate 124 bpm, atrial fibrillation with RVR Plan for hemodialysis tomorrow. No plan for hemodialysis today The patient is in atrial fibrillation denies any symptoms of palpitation chest pain or shortness of breath. 08/07/2024 Patient examined this morning at the bedside. Patient currently denies chest pain or pressure. He denies shortness of breath. Patient remains in atrial fibrillation with RVR with heart rate in the 120s. He denies any palpitations. Denies any dizziness or lightheadedness. Patient is currently on metoprolol tartrate 100 mg 3 times daily and amiodarone 200 mg twice a day. Patient is scheduled to undergo hemodialysis today. 08/08/2024 Patient examined this morning to bedside. Patient currently denies chest pain or pressure. He denies shortness of breath. He remains in atrial flutter with a heart rate in the 120s. Blood pressure 102/71. PHYSICAL EXAM: VITAL SIGNS: Reviewed. GENERAL: Well-developed in no acute distress. HEENT: Head is normocephalic. Pupils are equal, round. Sclerae anicteric. Mucous membranes of the mouth are moist. Neck supple. No JVD or thyromegaly LUNGS: Respirations even and unlabored. Lungs essentially clear to auscultation bilaterally. HEART: Tachycardic. Irregular rate and rhythm. S1 and S2 heard. ABDOMEN: Soft. Nondistended. Nontender. EXTREMITIES: Normal range of motion. No clubbing or cyanosis. Peripheral pulses intact. No lower extremity edema NEUROLOGIC: Awake and alert. Oriented x 3. ASSESSMENT: Chest pain, ACS ruled out Paroxysmal atrial fibrillation with RVR History of TONEY and cardioversion, March 2024 with subsequent significant bradycardia and pauses requiring external pacing, atropine, and epinephrine End-stage renal disease on hemodialysis Hypertension Hyperlipidemia PLAN: Case discussed with Dr. Blandon, patient's primary evaluation manager. No plans for cardioversion at this time Continue current cardiac medications including amiodarone, Eliquis, aspirin, Lipitor, metoprolol, and midodrine PRN Decrease metoprolol to tartrate to 50 mg twice a day Begin IV Cardizem at 5 mg an hour. No bolus. Will transition to oral Cardizem tomorrow if blood pressure remains stable Continue telemetry monitoring Further recommendations pending patient course Nurse practitioner note has been reviewed by physician. Signing provider agrees with the documented findings, assessment, and plan of care documented by ROLL HANDLER as a scribe. Objective - Vital Signs Vital signs: Vital Signs Temp 98.2 F 08/08/24 08:19 Pulse 123 H 08/08/24 11:16 Resp 15 08/08/24 11:16 BP 95/63 08/08/24 11:16 Pulse Ox 96 08/08/24 11:16 FiO2 Intake & Output 08/07/24 08/08/24 08/08/24 18:59 06:59 18:59 Intake Total 1420 2.667 Output Total 850 700 400 Balance 570 -700 -397.333 Weight 75.5 kg Intake: Intake, IV Titration 2.667 Amount Diltiazem 125 mg In 2.667 Sodium Chloride 0.9% 100 ml @ 5 MG/HR 5 mls/hr IV .Q24H [facility] Rx#:[id number] Oral 720 Hemodialysis 700 Output: Urine 150 700 400 Hemodialysis 300 Hemodialysis Net Amount 400 Other: Voiding Method Urinal Urinal Toilet Urinal # Voids 1 - Labs CBC & Chem 7: 08/06/24 07:38 08/07/24 07:44
--- NOTE | 2024-08-08 12:14 | P.PN ---
Subjective Patient is seen for follow-up for end-stage renal disease. Status post hemodialysis yesterday with no significant UF No significant complaints today. Heart rate remains high, 120 -122. Patient will be started on Cardizem drip. Objective - Vital Signs Vital signs: Vital Signs Temp 98.2 F 08/08/24 08:19 Pulse 92 08/08/24 11:39 Resp 15 08/08/24 11:16 BP 99/62 08/08/24 11:39 Pulse Ox 96 08/08/24 11:16 FiO2 Intake & Output 08/07/24 08/08/24 08/08/24 18:59 06:59 18:59 Intake Total 1420 2.667 Output Total 850 700 400 Balance 570 -700 -397.333 Weight 75.5 kg Intake: Intake, IV Titration 2.667 Amount Diltiazem 125 mg In 2.667 Sodium Chloride 0.9% 100 ml @ 5 MG/HR 5 mls/hr IV .Q24H [facility] Rx#:[id number] Oral 720 Hemodialysis 700 Output: Urine 150 700 400 Hemodialysis 300 Hemodialysis Net Amount 400 Other: Voiding Method Urinal Urinal Toilet Urinal # Voids 1 - Exam Patient is awake, comfortable, no acute distress Examination of the heart S1 and S2 Examination of the lungs bilateral breath sounds are heard Abdomen is soft nontender Examination lower extremity shows no evidence of edema BUILDING SERVICEMAN exam grossly intact - Labs CBC & Chem 7: 08/06/24 07:38 08/07/24 07:44 Assessment and Plan Assessment: 1. End-stage renal disease maintained on hemodialysis on Monday schedule. 2. A-fib with RVR status post Cardizem drip. Cardiology following. 3. 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 Phosphorus level 3.4 dated July 31, 2024. 4. Tobacco abuse. Plan: Hemodialysis on Monday schedule. No significant UF with dialysis
[2024-08-08] MEDS: METOPROLOL TARTRATE 50 MG TAB PO SCH (22:12)
[2024-08-09 10:56] LABS: African American GFR (CKD) 16 (>60 ml/min/1.73 sqM); Anion Gap 7 mmol/L; Blood Urea Nitrogen 28 mg/dL (9-20); Calcium 8.9 mg/dL (8.4-10.2); Carbon Dioxide 29 mmol/L (22-30); Chloride 99 mmol/L (98-107); Glucose 153 mg/dL (74-99); Magnesium 1.8 mg/dL (1.6-2.3); Non-African American GFR(CKD) 13 (>60 ml/min/1.73 sqM); Potassium 3.6 mmol/L (3.5-5.1); Sodium 135 mmol/L (137-145)
--- NOTE | 2024-08-09 13:10 | P.DS ---
Providers Date of admission: 07/31/24 09:56 Expected date of discharge: 08/09/24 Attending physician: Homero Frederick Consults: 07/31/24 09:56 Consult Physician Urgent Consulting Provider: [facility] Consult Reason/Comments: Chest pain Do you want consulting provider notified?: Yes 07/31/24 09:58 Consult Physician Routine Consulting Provider: Bernard Snyder Consult Reason/Comments: Incomplete dialysis treatment today Do you want consulting provider notified?: Yes Primary care physician: Matthew Espino MD Hospital Course: Patient is a Patient is a pleasant 68-year-old male with a past medical history of paroxysmal atrial fibrillation status post cardioversion on anticoagulation with Eliquis, hypertension, hyperlipidemia, and ESRD on hemodialysis /Monday/Fridays. Patient presented to the emergency department with a chief complaint of chest pain. Patient was undergoing hemodialysis when he developed pain/pressure to midsternal chest accompanied by shortness of breath. Upon arrival to our facility, patient reports chest pain has fully resolved and he currently denies having any complaints. On arrival to our facility patient underwent evaluation in the emergency department. Vital signs on arrival show blood pressure 102/76, heart rate 105, respiratory rate 18, temp 98.0 F, and SpO2 of 98% on 2 L. EKG was completed showing atrial fibrillation with RVR to 136 bpm with T wave inversion in lateral leads I and aVL. Chest x-ray showing cardiomegaly with mild pulmonary vascular congestion and similar bibasilar opacities favored to represent atelectasis. Patient was given aspirin 324 mg p.o. x 1 dose in the emergency department along with Cardizem bolus followed by infusion. He was admitted under our services with consultation to cardiology and nephrology. Limited echocardiogram completed reporting trace pericardial effusion. Patient remained in A-fib RVR despite Cardizem infusion and amiodarone infusion. He is currently transitioning to oral amiodarone and metoprolol has been increased. 08/09 Patient was seen and examined. Feeling well. Re-started on Cardizem drip yesterday at 5 mg/hr, HR now improved to the 60s. Discussed with Dr. Steinberg, Cardiology cleared the patient for discharge. Discharge Plan: New meds: ASA 81 mg PO QD, Cardizem 60 mg PO TID, Amiodarone 200 mg PO QD, Eliquis 2.5 mg PO BID, Metoprolol 50 mg PO BID. Stop: Metoprolol 12.5 mg PO BID, Eliquis 5 mg PO BID. Diet: Renal Resume dialysis Mon, Mon, Mon Follow up with PCP within 1-2 days. Follow up with Dr. Steinberg within 1 week of discharge. General: non toxic, no distress, appears at stated age Derm: warm, dry Head: atraumatic, normocephalic, symmetric Mouth: no lip lesion, mucus membranes moist Cardiovascular: S1S2 ireg, no murmur Lungs: Decreased BS bilaterally, no rales , no accessory muscle use Ext: no gross muscle atrophy, no edema, no contractures Neuro: no focal neuro deficits Psych: Alert and oriented. Discharge Diagnosis: Atrial fibrillation with persistent RVR Elevated troponin likely secondary to RVR Chest pain Trace pericardial effusion Hypertension Hyperlipidemia ESRD on hemodialysis Monday/Monday/Monday This complex discharge took 35 minutes to complete. Patient Condition at Discharge: Stable Plan - Discharge Summary Discharge Rx Participant: No New Discharge Prescriptions: New Aspirin 81 mg PO DAILY #30 tab Diltiazem Oral [Cardizem*] 60 mg PO TID #90 tab Amiodarone [Cordarone] 200 mg PO DAILY #30 tab Apixaban [Eliquis] 2.5 mg PO BID #60 tab Metoprolol Tartrate [Lopressor] 50 mg PO BID #60 tab Continue Cyanocobalamin [Vitamin B-12] 500 mcg PO DAILY Tamsulosin [Flomax] 0.4 mg PO HS Menthol [Biofreeze] 1 applic TOPICAL BID PRN PRN Reason: Pain Acetaminophen [Tylenol Extra Strength] 1,000 mg PO TID PRN PRN Reason: Pain Sennosides [Senokot] 17.2 mg PO DAILY methocarbamoL [Robaxin] 500 mg PO HS Buprenorphine [Butrans 10 MCG/HOUR] 1 patch TRANSDERM Q7D Diclofenac Sodium [Diclofenac Sodium 1%] 1 applic TOPICAL QID PRN PRN Reason: Pain methocarbamoL [Robaxin] 500 mg PO BID PRN PRN Reason: Pain Melatonin 3 mg PO HS PRN PRN Reason: Insomnia Midodrine [ProAmatine] 5 mg PO AC-TID 30 Days #90 tab Sevelamer [Renvela] 800 mg PO DAILY PRN PRN Reason: snacks Sevelamer [Renvela] 2,400 mg PO TID-W/MEALS Nitroglycerin Sl Tabs [Nitrostat] 0.4 mg SL Q5M PRN PRN Reason: Chest Pain Refresh Optive 0.5%-0.9% Eye Drops 1 - 2 drops BOTH EYES TID PRN PRN Reason: Dry Eye(S) Budesonide/Formoterol Fumarate [Symbicort 160-4.5 Mcg Inhaler] 2 puff INHALATION RT-BID Sodium Zirconium Cyclosilicate [Lokelma] 10 gram PO DAILY Sodium Bicarbonate Tab 650 mg PO BID Patiromer Calcium Sorbitex [Veltassa] 1 packet PO SUTUTHSA Omeprazole [PriLOSEC] 20 mg PO BID Albuterol Sulfate [Albuterol Sulfate Hfa] 1 puff INHALATION RT-QID PRN PRN Reason: Wheezing Loratadine [Claritin] 10 mg PO DAILY Loperamide HCl [Loperamide] 2 mg PO QID PRN PRN Reason: Diarrhea Ipratropium-Albuterol Nebulize [Duoneb 0.5 mg-3 mg/3 ml Soln] 3 ml INHALATION RT-BID PRN PRN Reason: Shortness Of Breath Atorvastatin [Lipitor] 20 mg PO HS 30 Days #30 tab Gabapentin [Neurontin] 100 mg PO TID #0 Ammonium Lactate Lotion [Lac-Hydrin 12% Lotion] 1 applic TOPICAL DAILY Discontinued Metoprolol Tartrate [Lopressor] 12.5 mg PO BID Apixaban [Eliquis] 5 mg PO BID Discharge Medication List Cyanocobalamin [Vitamin B-12] 500 mcg PO DAILY 07/24/23 [History] Omeprazole [PriLOSEC] 20 mg PO BID 07/24/23 [History] Patiromer Calcium Sorbitex [Veltassa] 1 packet PO SUTUTHSA 07/24/23 [History] Sodium Bicarbonate Tab 650 mg PO BID 07/24/23 [History] Tamsulosin [Flomax] 0.4 mg PO HS 07/24/23 [History] Acetaminophen [Tylenol Extra Strength] 1,000 mg PO TID PRN 03/26/24 [History] Albuterol Sulfate [Albuterol Sulfate Hfa] 1 puff INHALATION RT-QID PRN 03/26/24 [History] Buprenorphine [Butrans 10 MCG/HOUR] 1 patch TRANSDERM Q7D 03/26/24 [History] Diclofenac Sodium [Diclofenac Sodium 1%] 1 applic TOPICAL QID PRN 03/26/24 [History] Loperamide HCl [Loperamide] 2 mg PO QID PRN 03/26/24 [History] Loratadine [Claritin] 10 mg PO DAILY 03/26/24 [History] Melatonin 3 mg PO HS PRN 03/26/24 [History] Menthol [Biofreeze] 1 applic TOPICAL BID PRN 03/26/24 [History] Sennosides [Senokot] 17.2 mg PO DAILY 03/26/24 [History] methocarbamoL [Robaxin] 500 mg PO BID PRN 03/26/24 [History] methocarbamoL [Robaxin] 500 mg PO HS 03/26/24 [History] Ipratropium-Albuterol Nebulize [Duoneb 0.5 mg-3 mg/3 ml Soln] 3 ml INHALATION RT-BID PRN 04/06/24 [History] Atorvastatin [Lipitor] 20 mg PO HS 30 Days #30 tab 04/10/24 [Rx] Midodrine [ProAmatine] 5 mg PO AC-TID 30 Days #90 tab 04/10/24 [Rx] Nitroglycerin Sl Tabs [Nitrostat] 0.4 mg SL Q5M PRN 04/29/24 [History] Refresh Optive 0.5%-0.9% Eye Drops 1 - 2 drops BOTH EYES TID PRN 04/29/24 [History] Sevelamer [Renvela] 2,400 mg PO TID-W/MEALS 04/29/24 [History] Sevelamer [Renvela] 800 mg PO DAILY PRN 04/29/24 [History] Gabapentin [Neurontin] 100 mg PO TID #0 05/02/24 [Rx] Ammonium Lactate Lotion [Lac-Hydrin 12% Lotion] 1 applic TOPICAL DAILY 07/31/24 [History] Budesonide/Formoterol Fumarate [Symbicort 160-4.5 Mcg Inhaler] 2 puff INHALATION RT-BID 07/31/24 [History] Sodium Zirconium Cyclosilicate [Lokelma] 10 gram PO DAILY 07/31/24 [History] Amiodarone [Cordarone] 200 mg PO DAILY #30 tab 08/09/24 [Rx] Apixaban [Eliquis] 2.5 mg PO BID #60 tab 08/09/24 [Rx] Aspirin 81 mg PO DAILY #30 tab 08/09/24 [Rx] Diltiazem Oral [Cardizem*] 60 mg PO TID #90 tab 08/09/24 [Rx] Metoprolol Tartrate [Lopressor] 50 mg PO BID #60 tab 08/09/24 [Rx] Follow up Appointment(s)/Referral(s): Matthew Espino MD [Primary Care Provider] - 1-2 days Jf Steinberg MD [Medical Doctor] - 1 Week Activity/Diet/Wound Care/Special Instructions: Diet: Renal Resume dialysis Mon, Mon, Mon Follow up with PCP within 1-2 days. Follow up with Dr. Steinberg within 1 week of discharge.
[2024-08-09] MEDS: DILTIAZEM ORAL 60 MG TAB PO SCH (13:30)
--- NOTE | 2024-08-09 13:42 | P.PN ---
Subjective HISTORY OF PRESENT ILLNESS: This is a 68-year-old male with a past medical history significant for hypertension, hyperlipidemia, atrial fibrillation, and end-stage renal disease on hemodialysis. Patient follows in the office with Dr. Blandon. We have been asked to see the patient in consultation for chest pain. Patient examined at the bedside in the emergency room. Patient was at hemodialysis today when he started to have chest pain and shortness of breath. He was unable to finish his dialysis treatment and he was sent to the emergency room for further evaluation. Patient was found to be in A-fib with RVR and was started on IV Cardizem. At the time of examination he denies any chest pain or pressure. DIAGNOSTICS: - EKG reveals A-fib with RVR. - Chest xray cardiomegaly mild pulmonary vascular congestion. Similar bibasilar opacities favored to represent atelectasis versus like likely infiltrates - Laboratory data: WBC 9.9. Hemoglobin 12.9. Platelet count 151. Sodium 138. Potassium 4.1. BUN 29. Creatinine 4.0. Magnesium 1.7. Troponin negative x 1 - Current home cardiac medication list has not been updated at the time of dictation - Most recent echocardiogram obtained in April 2024 revealed ejection fraction 50 to 55%, no obvious regional wall motion abnormalities, mild MR - Patient underwent TONEY and cardioversion March 2024. Post cardioversion patient had significant pause and bradycardia with heart rates in the 20s and 30s. He required external pacing, atropine, and epinephrine. - Patient underwent Lexiscan stress test in July 2023 revealing manage defect involving the apical lateral myocardium with no definite reversible area of ischemia August 01, 2024 Patient was seen and evaluated this morning. He is currently asymptomatic. He denies any chest pain now or before. He underwent a stress test in the year of 2023 came in to be unremarkable for ischemia. The most recent echo from April 2024 showed normal LV systolic function. He is in A-fib with RVR and he is currently on Cardizem at 5 mg/h. He is also on beta-parvez. He is on heparin IV. The physical examination is remarkable for irregular rhythm with a systolic murmur at the right upper sternal border with bilateral expiratory wheezing and no edema was noted in the lower extremities August 02, 2024 The patient was seen and evaluated this morning. He remains in atrial fibrillation with uncontrolled heart rate. He is on Cardizem IV. I am going to increase the dose of beta-parvez. Continue heparin IV and consider switching the patient to oral anticoagulation. Follow-up on the echocardiogram which was performed. The physical examination is remarkable for irregular rhythm with a soft systolic murmur and clear within sounds bilaterally and no edema was noted August 03, 2024 The patient was seen and evaluated this morning. He is asymptomatic. The pressure is soft. He remains in atrial fibrillation with RVR in spite of being on Cardizem IV. I am going to DC the Cardizem IV and start the patient on amiodarone IV and switch him to oral amiodarone. Also stop the heparin IV and start the patient on oral anticoagulation. The physical examination is remarkable for irregular rhythm with a systolic murmur and clear breathing sounds bilaterally and no edema was noted. He underwent dialysis yesterday with removal of 1.5 L. The echo showed trace pericardial effusion August 04, 2024 The patient was seen and evaluated this morning with he is in atrial fibrillation with uncontrolled heart rate. He is on amiodarone IV which and going to switch him to amiodarone orally and increase the dose of beta-parvez. In the past post cardioversion he was bradycardic based on the history in the chart. He is asymptomatic from a cardiovascular standpoint of view. Hemodynamically he is stable beside the tachycardia with atrial fibrillation. He is on oral anticoagulation. The physical examination is remarkable for irregular rhythm with a soft systolic murmur and clear breathing sounds bilaterally and no edema was noted in the lower extremities 08/05/2024 BP 100/71, heart rate 130 bpm, atrial fibrillation with RVR Hb 13.5, potassium 6.2, BUN 54, creatinine 8.02 Patient had hemodialysis today Though patient has atrial fibrillation however patient denies any symptoms of palpitation or substernal chest pressure at this time. 08/06/2024 BP 98/65, heart rate 124 bpm, atrial fibrillation with RVR Plan for hemodialysis tomorrow. No plan for hemodialysis today The patient is in atrial fibrillation denies any symptoms of palpitation chest pain or shortness of breath. 08/07/2024 Patient examined this morning at the bedside. Patient currently denies chest pain or pressure. He denies shortness of breath. Patient remains in atrial fibrillation with RVR with heart rate in the 120s. He denies any palpitations. Denies any dizziness or lightheadedness. Patient is currently on metoprolol tartrate 100 mg 3 times daily and amiodarone 200 mg twice a day. Patient is scheduled to undergo hemodialysis today. 08/08/2024 Patient examined this morning to bedside. Patient currently denies chest pain or pressure. He denies shortness of breath. He remains in atrial flutter with a heart rate in the 120s. Blood pressure 102/71. 08/09/2024 Patient examined this morning at bedside. Patient currently denies chest pain or pressure. He denies shortness of breath. Patient remains in atrial flutter with controlled ventricular rates. His IV Cardizem is currently paused. PHYSICAL EXAM: VITAL SIGNS: Reviewed. GENERAL: Well-developed in no acute distress. HEENT: Head is normocephalic. Pupils are equal, round. Sclerae anicteric. Mucous membranes of the mouth are moist. Neck supple. No JVD or thyromegaly LUNGS: Respirations even and unlabored. Lungs essentially clear to auscultation bilaterally. HEART: Irregular rate and rhythm. S1 and S2 heard. ABDOMEN: Soft. Nondistended. Nontender. EXTREMITIES: Normal range of motion. No clubbing or cyanosis. Peripheral pulses intact. No lower extremity edema NEUROLOGIC: Awake and alert. Oriented x 3. ASSESSMENT: Chest pain, ACS ruled out Paroxysmal atrial fibrillation with RVR History of TONEY and cardioversion, March 2024 with subsequent significant bradycardia and pauses requiring external pacing, atropine, and epinephrine End-stage renal disease on hemodialysis Hypertension Hyperlipidemia PLAN: Case discussed with Dr. Blandon, patient's primary patrol officer. No plans for cardioversion at this time Discontinue IV Cardizem Add oral Cardizem 60 mg 3 times daily Decrease metoprolol tartrate to 25 mg twice a day Decrease amiodarone to 200 mg daily Continue Eliquis, aspirin, atorvastatin Patient will be discharged today from a cardiac standpoint Further recommendations pending patient course Nurse practitioner note has been reviewed by physician. Signing provider agrees with the documented findings, assessment, and plan of care documented by [employer] as a scribe. Objective - Vital Signs Vital signs: Vital Signs Temp 98.0 F 08/09/24 07:56 Pulse 124 H 08/09/24 07:56 Resp 15 08/09/24 07:56 BP 114/74 08/09/24 07:56 Pulse Ox 95 08/09/24 07:56 FiO2 Intake & Output 08/08/24 08/09/24 08/09/24 18:59 06:59 18:59 Intake Total 1262.667 206.833 Output Total 400 Balance 862.667 206.833 Weight 75.4 kg Intake: Intake, IV Titration 2.667 206.833 Amount Diltiazem 125 mg In 2.667 206.833 Sodium Chloride 0.9% 100 ml @ 5 MG/HR 5 mls/hr IV .Q24H [facility] Rx#:[id number] Oral 1260 Output: Urine 400 Other: Voiding Method Toilet Toilet Toilet Urinal Urinal Urinal # Voids 3 # Bowel Movements 1 - Labs CBC & Chem 7: 08/06/24 07:38 08/09/24 10:02
--- NOTE | 2024-08-09 15:09 | P.PN ---
Subjective Patient is seen for follow-up for end-stage renal disease. Seen on hemodialysis Tolerating treatment well. No significant complaints today. Heart rate is better controlled with Cardizem drip today. Objective - Vital Signs Vital signs: Vital Signs Temp 98.0 F 08/09/24 07:56 Pulse 63 08/09/24 11:06 Resp 17 08/09/24 11:06 BP 109/67 08/09/24 11:06 Pulse Ox 96 08/09/24 11:06 FiO2 Intake & Output 08/08/24 08/09/24 08/09/24 18:59 06:59 18:59 Intake Total 1262.667 206.833 172.75 Output Total 400 300 Balance 862.667 206.833 -127.25 Weight 75.4 kg Intake: Intake, IV Titration 2.667 206.833 54.75 Amount Diltiazem 125 mg In 2.667 206.833 54.75 Sodium Chloride 0.9% 100 ml @ 5 MG/HR 5 mls/hr IV .Q24H [facility] Rx#:[id number] Oral 1260 118 Output: Urine 400 300 Other: Voiding Method Toilet Toilet Toilet Urinal Urinal Urinal # Voids 3 # Bowel Movements 1 - Exam Patient is awake, comfortable, no acute distress Examination lower extremity shows no evidence of edema [employer] DEVELOPMENT DIRECTOR exam grossly intact - Labs CBC & Chem 7: 08/06/24 07:38 08/09/24 10:02 Labs: Abnormal Lab Results - Last 24 Hours (Table) 08/09/24 Range/Units 10:02 Sodium 135 L (137-145) mmol/L BUN 28 H (9-20) mg/dL Creatinine 4.30 H (0.66-1.25) mg/dL Glucose 153 H (74-99) mg/dL Assessment and Plan Assessment: 1. End-stage renal disease maintained on hemodialysis on Monday schedule. 2. A-fib with RVR back on Cardizem drip. Cardiology following. 3. 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 Phosphorus level 3.4 dated July 31, 2024. 4. Tobacco abuse. Plan: Hemodialysis on Monday schedule. No significant UF with dialysis
[2024-08-09 16:04] VITALS: BP 112/68; PULSE 66; RESP 16; TEMP 97.9
[2024-08-09] MEDS ORDERED: METOPROLOL TARTRATE 50 MG TAB PO SCH (21:00)
[2024-08-10] MEDS ORDERED: AMIODARONE 200 MG TAB PO SCH (09:00)
== END 2024-08-09 14:57 | disposition home or self-care (01) | DRG 308 ==
LOC: EC 08:55 → 6NMEDSUR 09:56 → OBSVTOIN 09:56 → 6NMEDSUR 13:09 → 3SCARD 16:44
PROVIDERS: ADMIT Student in an Organized Health Care Education/Training Program; ATTEND Student in an Organized Health Care Education/Training Program
PROC: 5A1D70Z Performance of Urinary Filtration, Intermittent, Less than 6 Hours Per Day (ICD-10-PCS; principal; 2024-07-31)
DX: I48.19 Other persistent atrial fibrillation (principal); N18.6 End stage renal disease; I12.0 Hypertensive chronic kidney disease with stage 5 chronic kidney disease or end stage renal disease; Z99.2 Dependence on renal dialysis; J98.11 Atelectasis; I48.92 Unspecified atrial flutter; R00.0 Tachycardia, unspecified; R01.1 Cardiac murmur, unspecified; M47.9 Spondylosis, unspecified; R79.89 Other specified abnormal findings of blood chemistry; F91.8 Other conduct disorders; R07.89 Other chest pain; E78.5 Hyperlipidemia, unspecified; M89.8X9 Other specified disorders of bone, unspecified site; Z79.01 Long term (current) use of anticoagulants; F17.210 Nicotine dependence, cigarettes, uncomplicated; N40.0 Benign prostatic hyperplasia without lower urinary tract symptoms; Z79.51 Long term (current) use of inhaled steroids; Z79.82 Long term (current) use of aspirin; Z79.899 Other long term (current) drug therapy; Z87.19 Personal history of other diseases of the digestive system; Z87.820 Personal history of traumatic brain injury
CPT/HCPCS: 36415; 71046; 80048; 80053; 80061; 83735; 84100; 84443; 84484; 85025; 85027; 85610; 85730; 86706; 87340; 90935; 93005; 93308; 94640; 94760; 96361; 96365; 96366; 96368; 99291

== ENCOUNTER 2024-08-20 14:40 | Inpatient (IN) | payer OTHER ==
[2024-08-20] MEDS ORDERED: DILTIAZEM 125 MG in SODIUM CHLORIDE 0.9% 100 ML IV SCH ×2 (15:15→16:15)
[2024-08-20] MEDS: ASPIRIN 81 MG PO STA (15:22)
[2024-08-20] MEDS: ACETAMINOPHEN TAB 500 MG TAB PO STA (15:23)
--- NOTE | 2024-08-20 15:25 | ED ---
General Adult HPI - General Chief complaint: Arrhythmia/Palpitations Stated complaint: Fast Heart Rate Time Seen by Provider: 08/20/24 15:04 Source: patient Mode of arrival: ambulatory Limitations: no limitations - History of Present Illness Initial comments: Patient is a 68-year gentleman history of end-stage renal disease on dialysis Monday, atrial fibrillation/a flutter on Eliquis, Cardizem, amiodarone and metoprolol, CHF presenting today for tachycardia noted on outpatient visit. Patient endorses a small chest pain "right where his heart is" that has been ongoing "for a long time". Rates his 1 out of 10. Exacerbated with coughing. He was at his pace of physicians office today when he was noted to be in atrial flutter with RVR so sent to the hospital. Patient denies missed dosages of his medications. He denies shortness of breath, hemoptysis, fevers or chills, abdominal pain nausea, vomiting, lower extremity swelling, diarrhea, numbness, weakness or slurred speech. States he has mild headache that is a chronic issue for him. Denies missed rounds of dialysis - Related Data Home Medications Medication Instructions Recorded Confirmed Cyanocobalamin [Vitamin B-12] 500 mcg PO DAILY 07/24/23 08/20/24 Omeprazole [PriLOSEC] 20 mg PO BID 07/24/23 08/20/24 Patiromer Calcium Sorbitex 8.4 gm PO SUTUTHSA 07/24/23 08/20/24 [Veltassa] Sodium Bicarbonate Tab 650 mg PO BID 07/24/23 08/20/24 Tamsulosin [Flomax] 0.4 mg PO HS 07/24/23 08/20/24 Acetaminophen [Tylenol Extra 1,000 mg PO TID PRN 03/26/24 08/20/24 Strength] Albuterol Sulfate [Albuterol 1 puff INHALATION RT-QID PRN 03/26/24 08/20/24 Sulfate Hfa] Diclofenac Sodium [Diclofenac 1 applic TOPICAL QID PRN 03/26/24 08/20/24 Sodium 1%] Loratadine [Claritin] 10 mg PO DAILY 03/26/24 08/20/24 Melatonin 3 mg PO HS PRN 03/26/24 08/20/24 Menthol [Biofreeze] 1 applic TOPICAL BID PRN 03/26/24 08/20/24 Sennosides [Senokot] 17.2 mg PO DAILY 03/26/24 08/20/24 methocarbamoL [Robaxin] 500 mg PO BID PRN 03/26/24 08/20/24 methocarbamoL [Robaxin] 500 mg PO HS 03/26/24 08/20/24 Ipratropium-Albuterol Nebulize 3 ml INHALATION RT-BID PRN 04/06/24 08/20/24 [Duoneb 0.5 mg-3 mg/3 ml Soln] Nitroglycerin Sl Tabs [Nitrostat] 0.4 mg SL Q5M PRN 04/29/24 08/20/24 Refresh Optive 0.5%-0.9% Eye Drops 1 - 2 drops BOTH EYES TID PRN 04/29/24 08/20/24 Sevelamer [Renvela] 2,400 mg PO TID-W/MEALS 04/29/24 08/20/24 Sevelamer [Renvela] 800 mg PO DAILY PRN 04/29/24 08/20/24 Ammonium Lactate Lotion 1 applic TOPICAL DAILY 07/31/24 08/20/24 [Lac-Hydrin 12% Lotion] Budesonide/Formoterol Fumarate 1 puff INHALATION RT-BID 07/31/24 08/20/24 [Symbicort 160-4.5 Mcg Inhaler] Sodium Zirconium Cyclosilicate 10 gram PO DAILY 07/31/24 08/20/24 [Lokelma] Apixaban [Eliquis] 2.5 mg PO BID 08/20/24 08/20/24 Buprenorphine [Butrans 15 MCG/HR] 1 patch TRANSDERM WEEKLY 08/20/24 08/20/24 Loperamide HCl [Imodium A-D] 2 mg PO QID PRN 08/20/24 08/20/24 Midodrine [ProAmatine] 5 mg PO TID 08/20/24 08/20/24 Previous Rx's Medication Instructions Recorded Atorvastatin [Lipitor] 20 mg PO HS 30 Days #30 tab 04/10/24 Gabapentin [Neurontin] 100 mg PO TID #0 05/02/24 Amiodarone [Cordarone] 200 mg PO DAILY #30 tab 08/09/24 Aspirin 81 mg PO DAILY #30 tab 08/09/24 Diltiazem Oral [Cardizem*] 60 mg PO TID #90 tab 08/09/24 Metoprolol Tartrate [Lopressor] 50 mg PO TID #90 tab 08/23/24 Allergies Allergy/AdvReac Type Severity Reaction Status Date / Time No Known Allergies Allergy Verified 08/20/24 16:13 Review of Systems ROS Statement: Those systems with pertinent positive or pertinent negative responses have been documented in the HPI. ROS Other: All systems not noted in ROS Statement are negative. Past Medical History Past Medical History: Atrial Fibrillation, Atrial Flutter, Dialysis, GERD/Reflux, Hyperlipidemia, Hypertension Additional Past Medical History / Comment(s): BPH, spinal arthritis, severe neuropathy of feet bilaterally, TBI History of Any Multi-Drug Resistant Organisms: None Reported Past Surgical History: Heart Catheterization, Hernia Repair Additional Past Surgical History / Comment(s): AV fistula placed Past Anesthesia/Blood Transfusion Reactions: No Reported Reaction Past Psychological History: No Psychological Hx Reported Smoking Status: Current every day smoker Past Alcohol Use History: None Reported Past Drug Use History: None Reported General Exam - General Exam Comments Initial Comments: PE: CONSTITUTIONAL: [no apparent distress, well appearing] SKIN: [warm, dry, no jaundice, hives or petechiae] EYES:[ pupils are equally round, extraocular movements intact without nystagmus, clear conjunctiva, non-icteric sclera] HENT: [normocephalic, atraumatic, moist mucus membranes, oropharynx clear without exudates] NECK: , [Full range of motion, normal appearance] PULMONARY: [Question scant crackles in the left lung base, otherwise nowheezes or rales, normal excursion, no accessory muscle use and no stridor] CARDIOVASCULAR:[tachycardia, regular rate, rhythm, normal S1 and S2. No appreciated murmurs, rubs or gallops. Strong radial pulses with intact distal perfusion. No lower extremity edema, palpable thrill at left bicepfistula] GASTROINTESTINAL: [soft, active bowel sounds throughout, non-tender, non- distended, no palpable masses, no rebound or guarding. No hepatosplenomegaly] MUSCULOSKELETAL: [Extremities have no gross deformity, no edema, redness, or swelling. No calf swelling ] NEUROLOGIC: [_a/o x 3, GCS 15, normal mentation and speech. Moves all extremitie s x 4 without motor or sensory deficit] PSYCHIATRIC:[ _normal mood and affect, thought process is clear and linear] Limitations: no limitations Course Vital Signs 08/20/24 08/20/24 08/20/24 14:42 16:11 17:00 Temperature 99 F Pulse Rate 127 H 118 H 121 H Respiratory 22 18 20 Rate Blood Pressure 147/100 127/91 167/91 O2 Sat by Pulse 94 L 96 96 Oximetry 08/20/24 08/20/24 18:00 18:41 Temperature Pulse Rate 127 H 92 Respiratory 20 16 Rate Blood Pressure 156/97 127/91 O2 Sat by Pulse 96 96 Oximetry EKG Findings - EKG Comments: EKG Findings:: A flutter with RVR, rate 124 bpm QT/QTc, 192/266, borderline left axis deviation, Compared to EKG performed on 07/26/2024, there is some T wave flattening lead V2 new from prior, Medical Decision Making - Medical Decision Making Was pt. sent in by a medical professional or institution ([facility] Sor[facility], DOG CATCHER, urgent care, hospital, or usp...) When possible be specific Yes pt sent in by PCP Did you speak to anyone other than the patient for history (EMS, parent, family, police, friend...)? What history was obtained from this source @ -No Did you review nursing and triage notes (agree or disagree)? Why? @ -I reviewed and agree with nursing and triage notes Were old charts reviewed (outside hosp., previous admission, EMS record, old EKG, old radiological studies, urgent care reports/EKG's, usp records)? Report findings @ -Medical records reviewed-reviewed discharge summary from 08/30 patient's recent admission when he was in A-fib/a flutter with RVR, during that visit he required Cardizem, amiodarone and was discharged home on Cardizem, already on amiodarone and metoprolol. Echocardiogram obtained during that visit showed a trace pericardial effusion. Echocardiogram performed in March 2024 reviewed, showed EF of 50 to 55% Differential Diagnosis (chest pain, altered mental status, abdominal pain women, abdominal pain men, vaginal bleeding, weakness, fever, dyspnea, syncope, headac he, dizziness, GI bleed, back pain, seizure, CVA, palpatations, mental health, musculoskeletal)? Differential Palpitations Ventricular arrhythmias, atrial arrhythmias, myocardial infarction, anemia, thyrotoxicosis, electrolyte imbalance, hypokalemia, pulmonary disease, drugs, alcohol, anxiety, stress.... This is not meant to be an all-inclusive list. EKG interpreted by me (3pts min.). @ -As above X-rays interpreted by me (1pt min.). Personally reviewed CXR, possible mild cardiomegaly, no obvious consolidations or pneumothorax, I agree with radiologist interpretation CT interpreted by me (1pt min.). @ -None done U/S interpreted by me (1pt. min.). @ -None done What testing was considered but not performed or refused? (CT, X-rays, U/S, labs)? Why? @ -None What meds were considered but not given or refused? Why? @ amiodarone bolus and drip were considered however patient's most recent echo with available ejection fraction shows sufficient ejection fraction, patient is on oral Cardizem we will give him a weight-based dose of Cardizem bolus and drip Did you discuss the management of the patient with other professionals (professionals i.e. , PA, DOG CATCHER, lab, RT, psych nurse, web content & social media manager, deck engine operator, teacher, branch officer, skilled nursing case manager)? Give summary @ -No Was smoking cessation discussed for >3mins.? @ -No Was critical care preformed (if so, how long)? @ Yes 35 minutes Were there social determinants of health that impacted care today? How? (Homelessness, low income, unemployed, alcoholism, drug addiction, transportation, low edu. Level, literacy, decrease access to med. care, detention, rehab)? @ -No Was there de-escalation of care discussed even if they declined (Discuss DNR or withdrawal of care, Hospice)? @ -No What co-morbidities impacted this encounter? (DM, HTN, Smoking, COPD, CAD, Cancer, CVA, ARF, Chemo, Hep., AIDS, mental health diagnosis, sleep apnea, morbid obesity)? @ -[ESRD on dialysis Monday, atrial fibrillation/a flutter, CHF Was patient admitted / discharged? Hospital course, mention meds given and route, prescriptions, significant lab abnormalities, going to OR and other pertinent info. @Admission- this is a pleasant 68-year-old gentleman presenting today for tachycardia from his primary care provider's office. Recent admission for si milar. He endorses a small amount of chest discomfort that he states he has had on and off for "a long time". He rates it as a 1 out of 10. Exacerbated with coughing. Patient was sent by his outpatient provider after being found to be in A-fib with RVR during routine visit. On my assessment blood pressure stable, heart rate in the 120s appears to be in a flutter with a 2-1 block, questionable scant crackles in the left lung base no lower extremity edema. Plan for weight-based Cardizem bolus of 18 mg, Cardizem drip, basic labs, CXR, pt agreeable with POC. Labs were reviewed and significant for potassium of 6.1, ordered calcium gluconate, insulin dextrose and Lokelma. Patient's heart rate did gradually improve with rates down into the 90s. He will be maintained on a Cardizem drip. Patient was admitted to Dr. Valles in stable condition. Nephrology and cardiology consults will be placed. Undiagnosed new problem with uncertain prognosis? @ -No Drug Therapy requiring intensive monitoring for toxicity (Heparin, Nitro, Insulin, Cardizem)? @ -No Were any procedures done? @ -No Diagnosis/symptom? @ Hyperkalemia, Atrial flutter with rvr Acute, or Chronic, or Acute on Chronic? @ acute Uncomplicated (without systemic symptoms) or Complicated (systemic symptoms)? @complicated Side effects of treatment? @ -No Exacerbation, Progression, or Severe Exacerbation? @ -No Poses a threat to life or bodily function? How? (Chest pain, [place], [place], pneumonia, PE, COPD, DKA, ARF, appy, cholecystitis, CVA, Diverticulitis, Homicidal, Suicidal, threat to staff... and all critical care pts) @Yes if left untreated could lead to cardiac failure and - Lab Data Result diagrams: 08/20/24 15:17 08/23/24 08:19 Lab Results 08/20/24 08/20/24 08/20/24 Range/Units 15:17 15:17 15:17 WBC 9.45 (4.50-10.00) 10*3/uL RBC 3.69 L (4.40-5.60) 10*6/uL Hgb 11.6 L (13.0-17.0) g/dL Hct 34.5 L (39.6-50.0) % MCV 93.5 (80.0-97.0) fL MCH 31.4 (27.0-32.0) pg MCHC 33.6 (32.0-37.0) g/dL Plt Count 155 (140-440) 10*3/uL MPV 10.5 (9.5-12.2) fL Immature Gran % (Auto) 0.4 % Neutrophils % 75.9 % Lymphocytes % 13.9 % Monocytes % 7.4 % Eosinophils % 1.7 % Basophils % 0.7 % Immature Gran # 0.04 (0.00-0.04) 10*3/uL Neutrophils # 7.17 (1.80-7.70) 10*3/uL Lymphocytes # 1.31 (0.90-5.00) 10*3/uL Monocytes # 0.70 (0.20-1.00) 10*3/uL Eosinophils # 0.16 (0.04-0.35) 10*3/uL Basophils # 0.07 (0.00-0.10) 10*3/uL PT 10.9 (10.0-12.5) sec INR 1.0 (<1.2) APTT 21.1 L (22.0-30.0) sec Sodium (137-145) mmol/L Potassium (3.5-5.1) mmol/L Chloride (98-107) mmol/L Carbon Dioxide (22-30) mmol/L Anion Gap mmol/L BUN (9-20) mg/dL Creatinine (0.66-1.25) mg/dL Est GFR (CKD-EPI)AfAm (>60 ml/min/1.73 sqM) Est GFR (CKD-EPI)NonAf (>60 ml/min/1.73 sqM) Glucose (74-99) mg/dL Calcium (8.4-10.2) mg/dL Magnesium (1.6-2.3) mg/dL Total Bilirubin (0.2-1.3) mg/dL AST (17-59) U/L ALT (4-49) U/L Alkaline Phosphatase (38-126) U/L Troponin I <0.012 (0.000-0.034) ng/mL Total Protein (6.3-8.2) g/dL Albumin (3.5-5.0) g/dL TSH (0.465-4.680) mIU/L 08/20/24 Range/Units 16:08 WBC (4.50-10.00) 10*3/uL RBC (4.40-5.60) 10*6/uL Hgb (13.0-17.0) g/dL Hct (39.6-50.0) % MCV (80.0-97.0) fL MCH (27.0-32.0) pg MCHC (32.0-37.0) g/dL Plt Count (140-440) 10*3/uL MPV (9.5-12.2) fL Immature Gran % (Auto) % Neutrophils % % Lymphocytes % % Monocytes % % Eosinophils % % Basophils % % Immature Gran # (0.00-0.04) 10*3/uL Neutrophils # (1.80-7.70) 10*3/uL Lymphocytes # (0.90-5.00) 10*3/uL Monocytes # (0.20-1.00) 10*3/uL Eosinophils # (0.04-0.35) 10*3/uL Basophils # (0.00-0.10) 10*3/uL PT (10.0-12.5) sec INR (<1.2) APTT (22.0-30.0) sec Sodium 140 (137-145) mmol/L Potassium 6.1 H* (3.5-5.1) mmol/L Chloride 100 (98-107) mmol/L Carbon Dioxide 32 H (22-30) mmol/L Anion Gap 8 mmol/L BUN 46 H (9-20) mg/dL Creatinine 5.28 H (0.66-1.25) mg/dL Est GFR (CKD-EPI)AfAm 12 (>60 ml/min/1.73 sqM) Est GFR (CKD-EPI)NonAf 10 (>60 ml/min/1.73 sqM) Glucose 101 H (74-99) mg/dL Calcium 8.9 (8.4-10.2) mg/dL Magnesium 1.8 (1.6-2.3) mg/dL Total Bilirubin 0.7 (0.2-1.3) mg/dL AST 23 (17-59) U/L ALT 26 (4-49) U/L Alkaline Phosphatase 104 (38-126) U/L Troponin I (0.000-0.034) ng/mL Total Protein 6.8 (6.3-8.2) g/dL Albumin 4.0 (3.5-5.0) g/dL TSH 2.320 (0.465-4.680) mIU/L Disposition Clinical Impression: Atrial flutter with rapid ventricular response, Hyperkalemia Disposition: ADMITTED IP TO THIS HOSP Condition: Stable
[2024-08-20 15:30] LABS: Basophils # (A) 0.07 10*3/uL (0.00-0.10); Basophils % (A) 0.7 %; Eosinophils # (A) 0.16 10*3/uL (0.04-0.35); Eosinophils % (A) 1.7 %; HCT 34.5 % (39.6-50.0); HGB 11.6 g/dL (13.0-17.0); Lymphocytes # (A) 1.31 10*3/uL (0.90-5.00); Lymphocytes % (A) 13.9 %; MCH 31.4 pg (27.0-32.0); MCHC 33.6 g/dL (32.0-37.0); MCV 93.5 fL (80.0-97.0); Mean Platelet Volume 10.5 fL (9.5-12.2); Monocytes % (A) 7.4 %; Neutrophils # (A) 7.17 10*3/uL (1.80-7.70); Neutrophils % (A) 75.9 %; RBC 3.69 10*6/uL (4.40-5.60); RDW 14.8 % (11.5-14.5); WBC 9.45 10*3/uL (4.50-10.00)
[2024-08-20 15:43] LABS: Prothrombin Time 10.9 sec (10.0-12.5)
[2024-08-20 15:52] LABS: Partial Thromboplastin Time 21.1 sec (22.0-30.0)
[2024-08-20] MEDS: DILTIAZEM DRIP BOLUS FROM BAG 1 MG SOLN IV ONE (16:10)
[2024-08-20] MEDS: DILTIAZEM 125 MG in SODIUM CHLORIDE 0.9% 100 ML IV SCH (16:10)
[2024-08-20 16:35] LABS: ALT 26 U/L (4-49); AST 23 U/L (17-59); African American GFR (CKD) 12 (>60 ml/min/1.73 sqM); Alkaline Phosphatase 104 U/L (38-126); Anion Gap 8 mmol/L; Blood Urea Nitrogen 46 mg/dL (9-20); Calcium 8.9 mg/dL (8.4-10.2); Carbon Dioxide 32 mmol/L (22-30); Chloride 100 mmol/L (98-107); Glucose 101 mg/dL (74-99); Magnesium 1.8 mg/dL (1.6-2.3); Non-African American GFR(CKD) 10 (>60 ml/min/1.73 sqM); Sodium 140 mmol/L (137-145); Total Bilirubin 0.7 mg/dL (0.2-1.3); Total Protein 6.8 g/dL (6.3-8.2)
[2024-08-20 16:40] LABS: Potassium 6.1 mmol/L (3.5-5.1)
--- NOTE | 2024-08-20 17:16 | XR ---
EXAMINATION TYPE: XR chest 2V DATE OF EXAM: 08/20/2024 5:06 PM COMPARISON: Prior chest radiograph, most recently dated 07/31/2024. CLINICAL INDICATION: Male, 68 years old with history of dysrhythmia; [facility] TECHNIQUE: XR chest 2V Frontal and lateral views of the chest. FINDINGS: Lungs/Pleura: There is no evidence of pleural effusion, focal consolidation, or pneumothorax. Pulmonary vascularity: Mild pulmonary vascular congestion. Heart/mediastinum: Cardiomegaly. Musculoskeletal: No acute osseous pathology. Other findings: None IMPRESSION: Cardiomegaly and mild pulmonary vascular congestive changes, similar to recent prior study dated 07/31. [facility], , 08/20/2024 5:13 PM
[2024-08-20 17:39] LABS: Platelet Count 155 10*3/uL (140-440)
[2024-08-20] MEDS: INSULIN REGULAR 100 UNIT/ML VIAL (IV) IV ONE (17:43)
[2024-08-20] MEDS: SODIUM ZIRCONIUM CYCLOSILICATE 10 GM PACKET PO ONE (17:45)
[2024-08-20] MEDS ORDERED: SEVELAMER 800 MG TAB PO PRN (17:51)
[2024-08-20] MEDS ORDERED: LOPERAMIDE 2 MG CAP PO PRN (17:51)
[2024-08-20] MEDS ORDERED: DICLOFENAC SODIUM GEL 100 GM TUBE TOPICAL PRN (17:51)
[2024-08-20] MEDS ORDERED: methocarbamoL 500 MG TAB PO PRN (17:51)
[2024-08-20] MEDS ORDERED: ALBUTEROL NEBULIZED 2.5 MG/3 ML INHALATION PRN (17:51)
[2024-08-20] MEDS ORDERED: MELATONIN 3 MG TABLET PO PRN (17:51)
[2024-08-20] MEDS ORDERED: NITROGLYCERIN SL TABS 0.4 MG TAB SUBLINGUAL PRN (17:51)
[2024-08-20] MEDS ORDERED: IPRATROPIUM-ALBUTEROL 3 ML NEB INHALATION PRN (17:51)
[2024-08-20] MEDS ORDERED: ONDANSETRON 4 MG/2 ML VIAL IVP PRN (17:53)
[2024-08-20] MEDS ORDERED: MAG HYDROX/AL HYDROX/SIMETH 30 ML CUP PO PRN (17:53)
[2024-08-20] MEDS ORDERED: NALOXONE 0.4 MG/ML 1 ML VIAL IV PRN (17:53)
[2024-08-20] MEDS: CALCIUM GLUCONATE IN NACL 1 GM in SALINE 1 100ML.BAG IVPB ONE (17:55)
[2024-08-20] MEDS: DEXTROSE 50% SYRINGE 50 ML IVP ONE (17:55)
--- NOTE | 2024-08-20 18:02 | P.HPIM ---
History of Present Illness H&P Date: 08/20/24 68 year old M with PMH of A-Fib, ESRD on HD MWF, HTN, HLD presents to the ED after being told to go to the ED by his PCP for elevated heart rate. Patient denies any active complaints. Denies chest pain, shortness of breath, dizziness, palpitations. In the ED he underwent extensive evaluation. BP 147/100, HR 127, R 99F, RR 22, 94% on RA. CBC, Coag panel, CMP significant for RBC 3.69, Hg 11.6, Hct 34.5, APTT 21.1, K 6.1, bicarb 32, BUN 46, Cr 5.28, glu 101. Trop < 0.012. TSH 2.32. Mag 1.8. EKG Atrial flutter rate of 124. Patient is started on Cardizem drip and admitted for further workup and management. General: non toxic, no distress, appears at stated age Derm: warm, dry Head: atraumatic, normocephalic, symmetric Mouth: no lip lesion, mucus membranes moist Cardiovascular: S1S2 ireg, no murmur Lungs: Decreased BS bilaterally, no rales , no accessory muscle use Ext: no gross muscle atrophy, no edema, no contractures Neuro: no focal neuro deficits Psych: Alert and oriented. Based on my assessment of this patient, this patient meets a high complexity level of care. Atrial fibrillation with RVR: Cardizem drip at 10 mg/hr. Amiodarone 200 mg PO QD. Metoprolol 50 mg PO TID. Cardizem 60 mg PO TID. Eliquis 2.5 mg PO BID for AC. Telemetry monitoring. Cardiology consulted. Hyperkalemia: Status post Ca gluconate, IV insulin and Lokelma. Repeat K at 9PM. ESRD on hemodialysis Monday/Monday/Monday: Consult Nephrology to resume HD. Hypertension: Metoprolol and Cardizem as above. Hyperlipidemia: Lipitor 20 mg PO QHS. CODE STATUS: FULL CODE. DVT Prophylaxis: Eliquis. GI Prophylaxis: Designated medical POA if patient is not able to make medical decisions for themselves: Sister. I have reviewed the following incident response consultant notes: ED note. I have reviewed the results of the following tests: As above. I have ordered the following tests: As above. I have discussed the care of this patient with the following independent historian: ISAIAH. I have independently interpreted the following test below: EKG I have discussed the management of this patient with the following physician: ER provider. Past Medical History Past Medical History: Atrial Fibrillation, Atrial Flutter, Dialysis, GERD/Reflux, Hyperlipidemia, Hypertension Additional Past Medical History / Comment(s): BPH, spinal arthritis, severe neuropathy of feet bilaterally, TBI History of Any Multi-Drug Resistant Organisms: None Reported Past Surgical History: Heart Catheterization, Hernia Repair Additional Past Surgical History / Comment(s): AV fistula placed Past Anesthesia/Blood Transfusion Reactions: No Reported Reaction Past Psychological History: No Psychological Hx Reported Smoking Status: Current every day smoker Past Alcohol Use History: None Reported Past Drug Use History: None Reported Medications and Allergies Home Medications Medication Instructions Recorded Confirmed Type Cyanocobalamin [Vitamin B-12] 500 mcg PO DAILY 07/24/23 08/20/24 History Omeprazole [PriLOSEC] 20 mg PO BID 07/24/23 08/20/24 History Patiromer Calcium Sorbitex 8.4 gm PO SUTUTHSA 07/24/23 08/20/24 History [Veltassa] Sodium Bicarbonate Tab 650 mg PO BID 07/24/23 08/20/24 History Tamsulosin [Flomax] 0.4 mg PO HS 07/24/23 08/20/24 History Acetaminophen [Tylenol Extra 1,000 mg PO TID PRN 03/26/24 08/20/24 History Strength] Albuterol Sulfate [Albuterol 1 puff INHALATION RT-QID PRN 03/26/24 08/20/24 History Sulfate Hfa] Diclofenac Sodium [Diclofenac 1 applic TOPICAL QID PRN 03/26/24 08/20/24 History Sodium 1%] Loratadine [Claritin] 10 mg PO DAILY 03/26/24 08/20/24 History Melatonin 3 mg PO HS PRN 03/26/24 08/20/24 History Menthol [Biofreeze] 1 applic TOPICAL BID PRN 03/26/24 08/20/24 History Sennosides [Senokot] 17.2 mg PO DAILY 03/26/24 08/20/24 History methocarbamoL [Robaxin] 500 mg PO BID PRN 03/26/24 08/20/24 History methocarbamoL [Robaxin] 500 mg PO HS 03/26/24 08/20/24 History Ipratropium-Albuterol Nebulize 3 ml INHALATION RT-BID PRN 04/06/24 08/20/24 History [Duoneb 0.5 mg-3 mg/3 ml Soln] Atorvastatin [Lipitor] 20 mg PO HS 30 Days #30 tab 04/10/24 08/20/24 Rx Nitroglycerin Sl Tabs [Nitrostat] 0.4 mg SL Q5M PRN 04/29/24 08/20/24 History Refresh Optive 0.5%-0.9% Eye Drops 1 - 2 drops BOTH EYES TID PRN 04/29/24 08/20/24 History Sevelamer [Renvela] 2,400 mg PO TID-W/MEALS 04/29/24 08/20/24 History Sevelamer [Renvela] 800 mg PO DAILY PRN 04/29/24 08/20/24 History Gabapentin [Neurontin] 100 mg PO TID #0 05/02/24 08/20/24 Rx Ammonium Lactate Lotion 1 applic TOPICAL DAILY 07/31/24 08/20/24 History [Lac-Hydrin 12% Lotion] Budesonide/Formoterol Fumarate 1 puff INHALATION RT-BID 07/31/24 08/20/24 History [Symbicort 160-4.5 Mcg Inhaler] Sodium Zirconium Cyclosilicate 10 gram PO DAILY 07/31/24 08/20/24 History [Lokelma] Amiodarone [Cordarone] 200 mg PO DAILY #30 tab 08/09/24 08/20/24 Rx Aspirin 81 mg PO DAILY #30 tab 08/09/24 08/20/24 Rx Diltiazem Oral [Cardizem*] 60 mg PO TID #90 tab 08/09/24 08/20/24 Rx Metoprolol Tartrate [Lopressor] 50 mg PO BID #60 tab 08/09/24 08/20/24 Rx Apixaban [Eliquis] 2.5 mg PO BID 08/20/24 08/20/24 History Buprenorphine [Butrans 15 MCG/HR] 1 patch TRANSDERM WEEKLY 08/20/24 08/20/24 History Loperamide HCl [Imodium A-D] 2 mg PO QID PRN 08/20/24 08/20/24 History Midodrine [ProAmatine] 5 mg PO TID 08/20/24 08/20/24 History Allergies Allergy/AdvReac Type Severity Reaction Status Date / Time No Known Allergies Allergy Verified 08/20/24 16:13 Physical Exam Vitals: Vital Signs Temp Pulse Resp BP Pulse Ox 08/20/24 17:00 121 H 20 167/91 96 08/20/24 16:11 118 H 18 127/91 96 08/20/24 14:42 99 F 127 H 22 147/100 94 L Intake and Output 08/20/24 08/20/24 08/20/24 06:59 14:59 22:59 Intake Total 7.25 Balance 7.25 Intake: Intake, IV Titration 7.25 Amount Diltiazem 125 mg In 7.25 Sodium Chloride 0.9% 100 ml @ 5 MG/HR 5 mls/hr IV .Q24H [facility] Rx#:[id number] Other: Weight 74.843 kg Results CBC & Chem 7: 08/20/24 15:17 08/20/24 16:08 Labs: Abnormal Lab Results - Last 24 Hours (Table) 08/20/24 08/20/24 08/20/24 Range/Units 15:17 15:17 16:08 RBC 3.69 L (4.40-5.60) 10*6/uL Hgb 11.6 L (13.0-17.0) g/dL Hct 34.5 L (39.6-50.0) % APTT 21.1 L (22.0-30.0) sec Potassium 6.1 H* (3.5-5.1) mmol/L Carbon Dioxide 32 H (22-30) mmol/L BUN 46 H (9-20) mg/dL Creatinine 5.28 H (0.66-1.25) mg/dL Glucose 101 H (74-99) mg/dL
[2024-08-20] MEDS: DILTIAZEM ORAL 60 MG TAB PO SCH (18:11)
[2024-08-20] MEDS: SODIUM BICARBONATE TAB 650 MG TAB PO SCH (20:25)
[2024-08-20] MEDS: METOPROLOL TARTRATE 50 MG TAB PO SCH (20:25)
[2024-08-20] MEDS: GABAPENTIN 100 MG CAP PO SCH (20:25)
[2024-08-20] MEDS: ATORVASTATIN 20 MG TAB PO SCH (20:25)
[2024-08-20] MEDS: TAMSULOSIN 0.4 MG CAP.ER.24H PO SCH (20:26)
[2024-08-20] MEDS: APIXABAN 2.5 MG TABLET PO SCH (20:26)
[2024-08-20] MEDS: SYMBICORT 160-4.5 MCG INHALER INHALATION SCH (20:55)
[2024-08-20] MEDS: methocarbamoL 500 MG TAB PO SCH (21:11)
[2024-08-21] MEDS: MIDODRINE 5 MG TAB PO SCH (06:20)
[2024-08-21] MEDS: PANTOPRAZOLE 40 MG TABLET PO SCH (06:20)
[2024-08-21] MEDS: SEVELAMER 800 MG TAB PO SCH (06:20)
[2024-08-21] MEDS: CYANOCOBALAMIN 500 MCG TAB PO SCH (08:05)
[2024-08-21] MEDS: LORATADINE 10 MG TAB PO SCH (08:06)
[2024-08-21] MEDS: SENNOSIDES 8.6 MG TAB PO SCH (08:06)
[2024-08-21] MEDS: AMIODARONE 200 MG TAB PO SCH (08:06)
[2024-08-21] MEDS: ASPIRIN 81 MG PO SCH (08:06)
[2024-08-21] MEDS: SODIUM ZIRCONIUM CYCLOSILICATE 10 GM PACKET PO SCH (08:11)
[2024-08-21] MEDS: DILTIAZEM ORAL 60 MG TAB PO SCH (10:18)
[2024-08-21 11:21] LABS: African American GFR (CKD) 9 (>60 ml/min/1.73 sqM); Anion Gap 11 mmol/L; Blood Urea Nitrogen 50 mg/dL (9-20); Calcium 9.7 mg/dL (8.4-10.2); Carbon Dioxide 27 mmol/L (22-30); Chloride 103 mmol/L (98-107); Glucose 111 mg/dL (74-99); Magnesium 1.7 mg/dL (1.6-2.3); Non-African American GFR(CKD) 8 (>60 ml/min/1.73 sqM); Potassium 5.2 mmol/L (3.5-5.1); Sodium 141 mmol/L (137-145)
--- NOTE | 2024-08-21 11:40 | P.NPCON ---
History of Present Illness - Reason for Consult end stage renal disease - History of Present Illness Patient is a 68-year-old male with history of end-stage renal disease on hemodialysis on Monday schedule, chronic A-fib, hypertension who is admitted to the hospital due to elevated heart rate. Patient did complain of some palpitations. He denies any significant shortness of breath. Patient was recently hospitalized for A-fib with RVR about 2 weeks ago. No history of fever chills nausea vomiting or abdominal pain. Past Medical History Past Medical History: Atrial Fibrillation, Atrial Flutter, Dialysis, GERD/Reflux, Hyperlipidemia, Hypertension Additional Past Medical History / Comment(s): BPH, spinal arthritis, severe neuropathy of feet bilaterally, TBI History of Any Multi-Drug Resistant Organisms: None Reported Past Surgical History: Heart Catheterization, Hernia Repair Additional Past Surgical History / Comment(s): AV fistula placed left side Past Anesthesia/Blood Transfusion Reactions: No Reported Reaction Past Psychological History: No Psychological Hx Reported Smoking Status: Current every day smoker Past Alcohol Use History: None Reported Past Drug Use History: None Reported Medications and Allergies Home Medications Medication Instructions Recorded Confirmed Type Cyanocobalamin [Vitamin B-12] 500 mcg PO DAILY 07/24/23 08/20/24 History Omeprazole [PriLOSEC] 20 mg PO BID 07/24/23 08/20/24 History Patiromer Calcium Sorbitex 8.4 gm PO SUTUTHSA 07/24/23 08/20/24 History [Veltassa] Sodium Bicarbonate Tab 650 mg PO BID 07/24/23 08/20/24 History Tamsulosin [Flomax] 0.4 mg PO HS 07/24/23 08/20/24 History Acetaminophen [Tylenol Extra 1,000 mg PO TID PRN 03/26/24 08/20/24 History Strength] Albuterol Sulfate [Albuterol 1 puff INHALATION RT-QID PRN 03/26/24 08/20/24 History Sulfate Hfa] Diclofenac Sodium [Diclofenac 1 applic TOPICAL QID PRN 03/26/24 08/20/24 History Sodium 1%] Loratadine [Claritin] 10 mg PO DAILY 03/26/24 08/20/24 History Melatonin 3 mg PO HS PRN 03/26/24 08/20/24 History Menthol [Biofreeze] 1 applic TOPICAL BID PRN 03/26/24 08/20/24 History Sennosides [Senokot] 17.2 mg PO DAILY 03/26/24 08/20/24 History methocarbamoL [Robaxin] 500 mg PO BID PRN 03/26/24 08/20/24 History methocarbamoL [Robaxin] 500 mg PO HS 03/26/24 08/20/24 History Ipratropium-Albuterol Nebulize 3 ml INHALATION RT-BID PRN 04/06/24 08/20/24 History [Duoneb 0.5 mg-3 mg/3 ml Soln] Atorvastatin [Lipitor] 20 mg PO HS 30 Days #30 tab 04/10/24 08/20/24 Rx Nitroglycerin Sl Tabs [Nitrostat] 0.4 mg SL Q5M PRN 04/29/24 08/20/24 History Refresh Optive 0.5%-0.9% Eye Drops 1 - 2 drops BOTH EYES TID PRN 04/29/24 08/20/24 History Sevelamer [Renvela] 2,400 mg PO TID-W/MEALS 04/29/24 08/20/24 History Sevelamer [Renvela] 800 mg PO DAILY PRN 04/29/24 08/20/24 History Gabapentin [Neurontin] 100 mg PO TID #0 05/02/24 08/20/24 Rx Ammonium Lactate Lotion 1 applic TOPICAL DAILY 07/31/24 08/20/24 History [Lac-Hydrin 12% Lotion] Budesonide/Formoterol Fumarate 1 puff INHALATION RT-BID 07/31/24 08/20/24 History [Symbicort 160-4.5 Mcg Inhaler] Sodium Zirconium Cyclosilicate 10 gram PO DAILY 07/31/24 08/20/24 History [Lokelma] Amiodarone [Cordarone] 200 mg PO DAILY #30 tab 08/09/24 08/20/24 Rx Aspirin 81 mg PO DAILY #30 tab 08/09/24 08/20/24 Rx Diltiazem Oral [Cardizem*] 60 mg PO TID #90 tab 08/09/24 08/20/24 Rx Metoprolol Tartrate [Lopressor] 50 mg PO BID #60 tab 08/09/24 08/20/24 Rx Apixaban [Eliquis] 2.5 mg PO BID 08/20/24 08/20/24 History Buprenorphine [Butrans 15 MCG/HR] 1 patch TRANSDERM WEEKLY 08/20/24 08/20/24 History Loperamide HCl [Imodium A-D] 2 mg PO QID PRN 08/20/24 08/20/24 History Midodrine [ProAmatine] 5 mg PO TID 08/20/24 08/20/24 History Allergies Allergy/AdvReac Type Severity Reaction Status Date / Time No Known Allergies Allergy Verified 08/20/24 16:13 Physical Exam Vitals: Vital Signs Temp Pulse Pulse Resp BP BP Pulse Ox 08/21/24 08:00 97.7 F 120 H 16 125/84 95 08/21/24 04:26 98.2 F 116 H 18 118/67 94 L 08/20/24 23:34 98.3 F 85 17 97/59 93 L 08/20/24 20:15 97.9 F 85 17 107/63 94 L 08/20/24 18:41 92 16 127/91 96 08/20/24 18:00 127 H 20 156/97 96 08/20/24 17:00 121 H 20 167/91 96 08/20/24 16:11 118 H 18 127/91 96 08/20/24 14:42 99 F 127 H 22 147/100 94 L Intake and Output 08/20/24 08/21/24 08/21/24 22:59 06:59 14:59 Intake Total 7.25 484.167 250 Output Total 700 Balance 7.25 484.167 -450 Intake: IV 10 Invasive Line 2 10 Intake, IV Titration 7.25 84.167 Amount Diltiazem 125 mg In 7.25 84.167 Sodium Chloride 0.9% 100 ml @ Titrate IV .Q24H [facility] Rx#:[id number] Oral 400 240 Output: Urine 700 Stool 0 Other: Voiding Method Toilet Toilet Urinal Urinal # Voids 1 # Bowel Movements 1 Weight 74.843 kg 77.7 kg Patient is awake, comfortable, no acute distress examination of the heart S1 and S2 Examination of the lungs bilateral breath sounds are heard Abdomen is soft nontender Examination of lower extremity shows no significant edema PERSONNEL RESEARCH PSYCHOLOGIST exam grossly intact Results - Lab Results Most recent lab results Calcium 9.7 mg/dL (8.4-10.2) 08/21/24 10:51 Magnesium 1.7 mg/dL (1.6-2.3) 08/21/24 10:51 08/20/24 15:17 08/21/24 10:51 Assessment and Plan Assessment: 1. End-stage renal disease on hemodialysis on Monday schedule 2. A-fib with RVR status post Cardizem drip 3. Hyperkalemia associated with end-stage renal disease scheduled for hemodialysis today 4. CKD mineral bone disorder Plan: Hemodialysis today UF about 1 L. DC sodium bicarb. Continue with Renvela with meals Thank you for the consultation. We will continue to follow the patient with you during his hospitalization.
--- NOTE | 2024-08-21 13:03 | P.CRDCN ---
History of Present Illness History of present illness: HISTORY OF PRESENT ILLNESS: This is a 68-year-old male with a past medical history significant for end-stage renal disease on hemodialysis, hypertension, hyperlipidemia, and atrial flutter. Patient follows in the office with Dr. Blandon. We have been asked to see the patient in consultation for A-fib with RVR. Patient examined at the bedside. Patient states he was at the [facility] and was not feeling well when he was brought to the emergency room. He does report having some palpitations and also chest discomfort. Patient was found to be in A-fib/flutter with RVR. He was started on IV Cardizem which is currently infusing at 10 mg an hour. DIAGNOSTICS: - EKG reveals atrial flutter with RVR. - Chest xray cardiomegaly mild pulmonary vascular congestive changes. - Laboratory data: - Current home cardiac medications include midodrine 5 mg 3 times daily, metoprolol tartrate 50 mg twice daily, Cardizem 60 mg 3 times daily, Lipitor 20 mg at night, aspirin 81 mg daily, Eliquis 2.5 mg twice a day, amiodarone 200 mg daily. -Most recent echocardiogram obtained in July 2024 was a limited study and revealed trace pericardial effusion -Full echocardiogram performed in 04/2024 revealed ejection fraction 50 to 55% with mild mitral regurgitation -Patient underwent Lexiscan stress test in July 2023 revealing matched defect involving the apical lateral myocardium with no definite reversible area of ischemia REVIEW OF SYSTEMS: At the time of my exam: CONSTITUTIONAL: Denies fever or chills. HEENT: Denies blurred vision, vision changes, or eye pain. Denies hemoptysis CARDIOVASCULAR: Denies chest pain. Denies orthopnea. Denies PND. Denies palpitations RESPIRATORY: Denies shortness of breath. GASTROINTESTINAL: Denies abdominal pain. Denies nausea or vomiting. HEMATOLOGIC: Denies bleeding disorders. GENITOURINARY: Denies any blood in urine. SKIN: Denies pruitis. Denies rash. PHYSICAL EXAM: VITAL SIGNS: Reviewed. GENERAL: Well-developed in no acute distress. HEENT: Head is normocephalic. Pupils are equal, round. Sclerae anicteric. Mucous membranes of the mouth are moist. Neck supple. No JVD or thyromegaly LUNGS: Respirations even and unlabored. Lungs essentially clear to auscultation bilaterally. HEART: Tachycardic. Irregular rate and rhythm. S1 and S2 heard. ABDOMEN: Soft. Nondistended. Nontender. EXTREMITIES: Normal range of motion. No clubbing or cyanosis. Peripheral pulses intact. No lower extremity edema NEUROLOGIC: Awake and alert. Oriented x 3. 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 Increase dose to 50 mg 3 times daily Hold Eliquis N.p.o. at midnight Will likely plan for cardiac catheterization tomorrow Further recommendations pending patient course Nurse practitioner note has been reviewed by physician. Signing provider agrees with the documented findings, assessment, and plan of care documented by CRYPTOLOGICAL TECHNICIAN as a scribe. Past Medical History Past Medical History: Atrial Fibrillation, Atrial Flutter, Dialysis, GERD/Ref lux, Hyperlipidemia, Hypertension Additional Past Medical History / Comment(s): BPH, spinal arthritis, severe neuropathy of feet bilaterally, TBI History of Any Multi-Drug Resistant Organisms: None Reported Past Surgical History: Heart Catheterization, Hernia Repair Additional Past Surgical History / Comment(s): AV fistula placed left side Past Anesthesia/Blood Transfusion Reactions: No Reported Reaction Past Psychological History: No Psychological Hx Reported Smoking Status: Current every day smoker Past Alcohol Use History: None Reported Past Drug Use History: None Reported Medications and Allergies Home Medications Medication Instructions Recorded Confirmed Type Cyanocobalamin [Vitamin B-12] 500 mcg PO DAILY 07/24/23 08/20/24 History Omeprazole [PriLOSEC] 20 mg PO BID 07/24/23 08/20/24 History Patiromer Calcium Sorbitex 8.4 gm PO SUTUTHSA 07/24/23 08/20/24 History [Veltassa] Sodium Bicarbonate Tab 650 mg PO BID 07/24/23 08/20/24 History Tamsulosin [Flomax] 0.4 mg PO HS 07/24/23 08/20/24 History Acetaminophen [Tylenol Extra 1,000 mg PO TID PRN 03/26/24 08/20/24 History Strength] Albuterol Sulfate [Albuterol 1 puff INHALATION RT-QID PRN 03/26/24 08/20/24 History Sulfate Hfa] Diclofenac Sodium [Diclofenac 1 applic TOPICAL QID PRN 03/26/24 08/20/24 History Sodium 1%] Loratadine [Claritin] 10 mg PO DAILY 03/26/24 08/20/24 History Melatonin 3 mg PO HS PRN 03/26/24 08/20/24 History Menthol [Biofreeze] 1 applic TOPICAL BID PRN 03/26/24 08/20/24 History Sennosides [Senokot] 17.2 mg PO DAILY 03/26/24 08/20/24 History methocarbamoL [Robaxin] 500 mg PO BID PRN 03/26/24 08/20/24 History methocarbamoL [Robaxin] 500 mg PO HS 03/26/24 08/20/24 History Ipratropium-Albuterol Nebulize 3 ml INHALATION RT-BID PRN 04/06/24 08/20/24 History [Duoneb 0.5 mg-3 mg/3 ml Soln] Atorvastatin [Lipitor] 20 mg PO HS 30 Days #30 tab 04/10/24 08/20/24 Rx Nitroglycerin Sl Tabs [Nitrostat] 0.4 mg SL Q5M PRN 04/29/24 08/20/24 History Refresh Optive 0.5%-0.9% Eye Drops 1 - 2 drops BOTH EYES TID PRN 04/29/24 08/20/24 History Sevelamer [Renvela] 2,400 mg PO TID-W/MEALS 04/29/24 08/20/24 History Sevelamer [Renvela] 800 mg PO DAILY PRN 04/29/24 08/20/24 History Gabapentin [Neurontin] 100 mg PO TID #0 05/02/24 08/20/24 Rx Ammonium Lactate Lotion 1 applic TOPICAL DAILY 07/31/24 08/20/24 History [Lac-Hydrin 12% Lotion] Budesonide/Formoterol Fumarate 1 puff INHALATION RT-BID 07/31/24 08/20/24 History [Symbicort 160-4.5 Mcg Inhaler] Sodium Zirconium Cyclosilicate 10 gram PO DAILY 07/31/24 08/20/24 History [Lokelma] Amiodarone [Cordarone] 200 mg PO DAILY #30 tab 08/09/24 08/20/24 Rx Aspirin 81 mg PO DAILY #30 tab 08/09/24 08/20/24 Rx Diltiazem Oral [Cardizem*] 60 mg PO TID #90 tab 08/09/24 08/20/24 Rx Metoprolol Tartrate [Lopressor] 50 mg PO BID #60 tab 08/09/24 08/20/24 Rx Apixaban [Eliquis] 2.5 mg PO BID 08/20/24 08/20/24 History Buprenorphine [Butrans 15 MCG/HR] 1 patch TRANSDERM WEEKLY 08/20/24 08/20/24 History Loperamide HCl [Imodium A-D] 2 mg PO QID PRN 08/20/24 08/20/24 History Midodrine [ProAmatine] 5 mg PO TID 08/20/24 08/20/24 History Allergies Allergy/AdvReac Type Severity Reaction Status Date / Time No Known Allergies Allergy Verified 08/20/24 16:13 Physical Exam Vitals: Vital Signs Temp Pulse Pulse Resp BP BP Pulse Ox 08/21/24 04:26 98.2 F 116 H 18 118/67 94 L 08/20/24 23:34 98.3 F 85 17 97/59 93 L 08/20/24 20:15 97.9 F 85 17 107/63 94 L 08/20/24 18:41 92 16 127/91 96 08/20/24 18:00 127 H 20 156/97 96 08/20/24 17:00 121 H 20 167/91 96 08/20/24 16:11 118 H 18 127/91 96 08/20/24 14:42 99 F 127 H 22 147/100 94 L Intake and Output 08/20/24 08/21/24 08/21/24 22:59 06:59 14:59 Intake Total 11.29 484.167 Balance 11.29 484.167 Intake: Intake, IV Titration 7. 84.167 Amount Diltiazem 125 mg In 7. 84.167 Sodium Chloride 0.9% 100 ml @ Titrate IV .Q24H [facility] Rx#:[id number] Oral 400 Other: Voiding Method Toilet Urinal # Voids 1 Weight 74.843 kg 77.7 kg Results 08/20/24 15:17 08/21/24 10:51 Cardiac Enzymes 08/20/24 08/20/24 08/20/24 Range/Units 15:17 16:08 18:48 AST 23 (17-59) U/L Troponin I <0.012 <0.012 (0.000-0.034) ng/mL 08/20/24 Range/Units 20:45 AST (17-59) U/L Troponin I <0.012 (0.000-0.034) ng/mL Coagulation 08/20/24 Range/Units 15: PT 10.9 (10.0-12.5) sec APTT 21.1 L (22.0-30.0) sec CBC 08/20/24 Range/Units 15:17 WBC 9.45 (4.50-10.00) 10*3/uL RBC 3.69 L (4.40-5.60) 10*6/uL Hgb 11.6 L (13.0-17.0) g/dL Hct 34.5 L (39.6-50.0) % Plt Count 155 (140-440) 10*3/uL Comprehensive Metabolic Panel 08/20/24 08/20/24 Range/Units 16:08 20:45 Sodium 140 (137-145) mmol/L Potassium 6.1 H* 4.8 (3.5-5.1) mmol/L Chloride 100 (98-107) mmol/L Carbon Dioxide 32 H (22-30) mmol/L BUN 46 H (9-20) mg/dL Creatinine 5.28 H (0.66-1.25) mg/dL Glucose 101 H (74-99) mg/dL Calcium 8.9 (8.4-10.2) mg/dL AST 23 (17-59) U/L ALT 26 (4-49) U/L Alkaline Phosphatase 104 (38-126) U/L Total Protein 6.8 (6.3-8.2) g/dL Albumin 4.0 (3.5-5.0) g/dL Current Medications Generic Name Dose Route Start Last Admin Trade Name Freq PRN Reason Stop Dose Admin Acetaminophen 1,000 mg 08/20/24 22:00 Acetaminophen Tab 500 Mg Tab PO TID PRN Pain Al Hydroxide/Mg Hydroxide 15 ml 08/20/24 17:53 Mag Hydrox/Al Hydrox/Simeth 30 Ml Cup PO Q6HR PRN Indigestion Albuterol Sulfate 2.5 mg 08/20/24 17:51 Albuterol Nebulized 2.5 Mg/3 Ml INHALATION RT-QID PRN Wheezing Albuterol/Ipratropium 3 ml 08/20/24 17:51 Ipratropium-Albuterol 3 Ml Neb INHALATION RT-BID PRN Shortness Of Breath Amiodarone HCl 200 mg 08/21/24 09:00 Amiodarone 200 Mg Tab PO DAILY ASMITA Apixaban 2.5 mg 08/20/24 21:00 08/20/24 20:26 Apixaban 2.5 Mg Tablet PO 2.5 mg BID ASMITA Administration Protocol Aspirin 81 mg 08/21/24 09:00 Aspirin 81 Mg PO DAILY ASMITA Atorvastatin Calcium 20 mg 08/20/24 21:00 08/20/24 20:25 Atorvastatin 20 Mg Tab PO 20 mg HS ASMITA Administration Budesonide/Formoterol Fumarate 1 puff 08/20/24 20:00 08/20/24 20:55 Symbicort 160-4.5 Mcg Inhaler INHALATION 1 puff RT-BID ASMITA Administration Cyanocobalamin 500 mcg 08/21/24 09:00 Cyanocobalamin 500 Mcg Tab PO DAILY [facility] Diclofenac Sodium 2 gm 08/20/24 17:51 Diclofenac Sodium Gel 100 Gm Tube TOPICAL QID PRN Pain Protocol Gabapentin 100 mg 08/20/24 22:00 08/20/24 20:25 Gabapentin 100 Mg Cap PO 100 mg TID ASMITA Administration Diltiazem HCl 125 mg/ Sodium 125 mls @ 0 mls/hr 08/20/24 16:30 08/21/24 04:26 Chloride IV 10 mg/hr .Q24H [facility] 10 mls/hr Titration Protocol Titrate Loperamide HCl 2 mg 08/20/24 17:51 Loperamide 2 Mg Cap PO QID PRN Diarrhea Loratadine 10 mg 08/21/24 09:00 Loratadine 10 Mg Tab PO DAILY [facility] Melatonin 3 mg 08/20/24 17:51 Melatonin 3 Mg Tablet PO HS PRN Insomnia Methocarbamol 500 mg 08/20/24 17:51 Methocarbamol 500 Mg Tab PO BID PRN Pain Methocarbamol 500 mg 08/20/24 21:00 08/20/24 21:11 Methocarbamol 500 Mg Tab PO 500 mg HS [facility] Administration Metoprolol Tartrate 50 mg 08/20/24 21:00 08/20/24 20:25 Metoprolol Tartrate 50 Mg Tab PO 50 mg BID ASM[facility] Administration Midodrine 5 mg 08/21/24 07:30 08/21/24 06:20 Midodrine 5 Mg Tab PO 5 mg AC-TID [facility]SM[facility] Administration Naloxone HCl 0.2 mg 08/20/24 17:53 Naloxone 0.4 Mg/Ml 1 Ml Vial IV Q2M PRN Opioid Reversal Nitroglycerin 0.4 mg 08/20/24 17:51 Nitroglycerin Sl Tabs 0.4 Mg Tab SUBLINGUAL Q5M PRN Chest Pain Non-Formulary Medication 8.4 gm 08/22/24 09:00 Patiromer Calcium Sorbitex [Veltassa] PO SUTUTHSA [facility] Ondansetron HCl 4 mg 08/20/24 17:53 Ondansetron 4 Mg/2 Ml Vial IVP Q8HR PRN Nausea And Vomiting Pantoprazole Sodium 40 mg 08/21/24 07:30 08/21/24 06:20 Pantoprazole 40 Mg Tablet PO 40 mg AC-[id number] [facility] Administration Senna 17.2 mg 08/21/24 09:00 Sennosides 8.6 Mg Tab PO DAILY [facility] Sevelamer Carbonate 800 mg 08/20/24 17:51 Sevelamer 800 Mg Tab PO DAILY PRN snacks Sevelamer Carbonate 2,400 mg 08/21/24 07:30 08/21/24 06:20 Sevelamer 800 Mg Tab PO 2,400 mg TID-W/MEALS [facility] Administration Sodium Bicarbonate 650 mg 08/20/24 21:00 08/20/24 20:25 Sodium Bicarbonate Tab 650 Mg Tab PO 650 mg BID [facility] Administration Sodium Zirconium Cyclosilicate 10 gm 08/21/24 09:00 Sodium Zirconium Cyclosilicate 10 Gm Packet PO DAILY [facility] Tamsulosin HCl 0.4 mg 08/20/24 21:00 08/20/24 20:26 Tamsulosin 0.4 Mg Cap.Er.24h PO 0.4 mg HS [facility] Administration Intake and Output 08/20/24 08/21/24 08/21/24 22:59 06:59 14:59 Intake Total 11.29 484.167 Balance 11.29 484.167 Intake: Intake, IV Titration 11.29 84.167 Amount Diltiazem 125 mg In 11.29 84.167 Sodium Chloride 0.9% 100 ml @ Titrate IV .Q24H [facility] Rx#:[id number] Oral 400 Other: Voiding Method Toilet Urinal # Voids 1 Weight 74.843 kg 77.7 kg 08/20/24 15:17 08/20/24 20:45
--- NOTE | 2024-08-21 13:33 | P.PN ---
Subjective Progress Note Date: 08/21/24 68 year old M with PMH of A-Fib, ESRD on HD MWF, HTN, HLD presents to the ED after being told to go to the ED by his PCP for elevated heart rate. Patient denies any active complaints. Denies chest pain, shortness of breath, dizziness, palpitations. In the ED he underwent extensive evaluation. BP 147/100, HR 127, R 99F, RR 22, 94% on RA. CBC, Coag panel, CMP significant for RBC 3.69, Hg 11.6, Hct 34.5, APTT 21.1, K 6.1, bicarb 32, BUN 46, Cr 5.28, glu 101. Trop < 0.012. TSH 2.32. Mag 1.8. EKG Atrial flutter rate of 124. Patient is started on Cardizem drip and admitted for further workup and management. 08/21 Patient was seen and examined. No complaints. HR sustained in the 120s. Cardiology recommends stopping Cardizem and starting PO Cardizem while continuing Metoprolol, NPO after MN for possible cath in the AM. Nephrology will resume HD starting today. BMP shows K 5.2, BUN 50, Cr 6.6, glu 111. Mag 1.7. General: non toxic, no distress, appears at stated age Derm: warm, dry Head: atraumatic, normocephalic, symmetric Mouth: no lip lesion, mucus membranes moist Cardiovascular: S1S2 ireg, no murmur Lungs: Decreased BS bilaterally, no rales , no accessory muscle use Ext: no gross muscle atrophy, no edema, no contractures Neuro: no focal neuro deficits Psych: Alert and oriented. Based on my assessment of this patient, this patient meets a high complexity level of care. Atrial fibrillation with RVR: Amiodarone 200 mg PO QD. Metoprolol 50 mg PO TID. Cardizem 60 mg PO TID. Eliquis on hold for possible cath tomorrow. Telemetry monitoring. Cardiology recs appreciated. Hyperkalemia: Status post Ca gluconate, IV insulin and Lokelma. Continue Lokelma 10g PO QD. Plans for HD today. ESRD on hemodialysis Monday/Monday/Monday: Nephrology on board to resume HD. Hypertension: Metoprolol and Cardizem as above. Hyperlipidemia: Lipitor 20 mg PO QHS. CODE STATUS: FULL CODE. DVT Prophylaxis: Eliquis. GI Prophylaxis: Designated medical POA if patient is not able to make medical decisions for themselves: Sister. I have reviewed the following automotive internet sales consultant notes: Cardio, Nephro note. I have reviewed the results of the following tests: BMP. Mag. I have ordered the following tests: BMP and Mag in the AM. I have discussed the care of this patient with the following independent historian: RN. I have independently interpreted the following test below: I have discussed the management of this patient with the following physician: Objective - Vital Signs Vital signs: Vital Signs Temp 97.7 F 08/21/24 08:00 Pulse 122 H 08/21/24 12:08 Resp 16 08/21/24 12:08 BP 121/79 08/21/24 12:08 Pulse Ox 95 08/21/24 12:08 FiO2 Intake & Output 08/20/24 08/21/24 08/21/24 18:59 06:59 18:59 Intake Total 7.25 484.167 283.583 Output Total 700 Balance 7. 484.167 -416.417 Weight 74.843 kg 77.7 kg Intake: IV 10 Invasive Line 2 10 Intake, IV Titration 7. 84.167 33.583 Amount Diltiazem 125 mg In 7.25 84.167 33.583 Sodium Chloride 0.9% 100 ml @ Titrate IV .Q24H [facility] Rx#:[id number] Oral 400 240 Output: Urine 700 Stool 0 Other: Voiding Method Toilet Toilet Urinal Urinal # Voids 1 # Bowel Movements 1 - Labs CBC & Chem 7: 08/20/24 15:17 08/21/24 10:51 Labs: Abnormal Lab Results - Last 24 Hours (Table) 08/20/24 08/20/24 08/20/24 Range/Units 15:17 15: 16:08 RBC 3.69 L (4.40-5.60) 10*6/uL Hgb 11.6 L (13.0-17.0) g/dL Hct 34.5 L (39.6-50.0) % APTT 21.1 L (22.0-30.0) sec Potassium 6.1 H* (3.5-5.1) mmol/L Carbon Dioxide 32 H (22-30) mmol/L BUN 46 H (9-20) mg/dL Creatinine 5.28 H (0.66-1.25) mg/dL Glucose 101 H (74-99) mg/dL / Range/Units 10:51 RBC (4.40-5.60) 10*6/uL Hgb (13.0-17.0) g/dL Hct (39.6-50.0) % APTT (22.0-30.0) sec Potassium 5.2 H (3.5-5.1) mmol/L Carbon Dioxide (22-30) mmol/L BUN 50 H (9-20) mg/dL Creatinine 6.60 H (0.66-1.25) mg/dL Glucose 111 H (74-99) mg/dL
[2024-08-21] MEDS ORDERED: hydrOXYzine HCL 25 MG TAB PO PRN (17:04)
[2024-08-21] MEDS: METOPROLOL TARTRATE 50 MG TAB PO SCH (17:51)
[2024-08-22 07:07] LABS: African American GFR (CKD) 14 (>60 ml/min/1.73 sqM); Anion Gap 7 mmol/L; Blood Urea Nitrogen 33 mg/dL (9-20); Calcium 9.6 mg/dL (8.4-10.2); Carbon Dioxide 30 mmol/L (22-30); Chloride 100 mmol/L (98-107); Glucose 86 mg/dL (74-99); Magnesium 1.7 mg/dL (1.6-2.3); Non-African American GFR(CKD) 12 (>60 ml/min/1.73 sqM); Sodium 137 mmol/L (137-145)
[2024-08-22] MEDS ORDERED: NITROGLYCERIN SL TABS 0.4 MG TAB SUBLINGUAL PRN (07:33)
[2024-08-22] MEDS ORDERED: ALPRAZolam 0.25 MG TAB PO PRN (07:33)
[2024-08-22] MEDS ORDERED: ALPRAZolam 0.5 MG TAB PO PRN (07:33)
[2024-08-22] MEDS: ASPIRIN 325 MG TAB PO STA (08:14)
[2024-08-22] MEDS: ATORVASTATIN 80 MG TAB PO STA (08:14)
[2024-08-22] MEDS: NON FORMULARY DRUG (Patiromer Calcium Sorbitex [Veltassa] 8.4 GM Packet) PO SCH (08:18)
--- NOTE | 2024-08-22 12:23 | P.PN ---
Subjective Patient is seen for follow-up for end-stage renal disease. Status post hemodialysis yesterday with UF of 1 L. No complaints of palpitations or shortness of breath. Heart rate 96-114. Objective - Vital Signs Vital signs: Vital Signs Temp 97.8 F 08/22/24 08:15 Pulse 114 H 08/22/24 08:15 Resp 18 08/22/24 08:15 BP 108/72 08/22/24 08:15 Pulse Ox 94 L 08/22/24 08:15 FiO2 Intake & Output 08/21/24 08/22/24 08/22/24 18:59 06:59 18:59 Intake Total 693.583 220 20 Output Total 3100 1050 Balance -2406.417 220 -1030 Weight 77.2 kg Intake: IV 20 20 20 Invasive Line 1 10 Invasive Line 2 20 20 10 Intake, IV Titration 33.583 Amount Diltiazem 125 mg In 33.583 Sodium Chloride 0.9% 100 ml @ Titrate IV .Q24H [facility] Rx#:[id number] Oral 240 200 Hemodialysis 400 Output: Urine 700 1050 Stool 0 Hemodialysis 1400 Hemodialysis Net Amount 1000 Other: Voiding Method Toilet Toilet Toilet Urinal Urinal Urinal # Bowel Movements 1 - Exam Patient is awake, comfortable, no acute distress examination of the heart S1 and S2 Examination of the lungs bilateral breath sounds are heard Abdomen is soft nontender Examination of lower extremity shows no significant edema [facility] exam grossly intact - Labs CBC & Chem 7: 08/20/24 15:17 08/22/24 06:27 Labs: Abnormal Lab Results - Last 24 Hours (Table) 08/22/24 Range/Units 06:27 BUN 33 H (9-20) mg/dL Creatinine 4.70 H (0.66-1.25) mg/dL Assessment and Plan Assessment: 1. End-stage renal disease on hemodialysis on Monday schedule 2. A-fib with RVR status post Cardizem drip 3. Hyperkalemia associated with end-stage renal disease scheduled for hemodialysis today 4. CKD mineral bone disorder Plan: Hemodialysis in a.m. Continue off of sodium bicarb Continue with Renvela with meals
[2024-08-22] MEDS: SODIUM CHLORIDE 0.9% 1,000 ML in EMPTY BAG 1 BAG IV SCH (12:28)
[2024-08-22] MEDS: IV FLUID CONTINUATION 1,000 ML IV ONE (13:07)
[2024-08-22] MEDS: fentaNYL (PF) 50 MCG/ML 2 ML AMP IVP ONE (13:15)
[2024-08-22] MEDS: MIDAZOLAM 2 MG/2 ML VIAL IVP ONE (13:16)
[2024-08-22] MEDS: LIDOCAINE 1% INJ 10MG/ML (20 ML MDV) SQ ONE (13:20)
[2024-08-22] MEDS: VERAPAMIL SYRINGE (5 MG/10 ML) INTRACORON ONE (13:20)
[2024-08-22] MEDS: HEPARIN SODIUM 1,000 UN/ML (10ML VL) IVP ONE (13:23)
--- NOTE | 2024-08-22 13:35 | P.CARDCATH ---
Description of Procedure: PROCEDURES PERFORMED: Left heart catheterization, bilateral coronary angiography, ultrasound guided arterial access INDICATION: Persistent chest pain CONSENT:I have discussed the risks, benefits and alternative therapies for the above-mentioned procedure and for both sedation/analgesia as well as necessary blood product administration, if indicated, as they pertain to this patient. The patient has indicated understanding and acceptance of the risks and procedures discussed. PROCEDURE: After the risks, benefits and alternatives of the above mentioned procedure explained in detail with the patient, informed consent was obtained. Patient was taken to the catheterization lab and prepped and draped in usual fashion. Ultrasound guidance was used to assess for arterial access. 1% lidocaine was used to anesthetize the right radial artery. A 6-Wolof sheath was placed in the right radial artery using modified Seldinger technique and ultrasound guidance. Left coronary angiography was performed with a 5-Wolof JL 3.5 catheter and right coronary angiography was performed with a 5-Wolof FR5 catheter in various views. A 5-Wolof FR5 catheter was inserted into the left ventricle and pressure measurements were obtained. The right radial sheath was removed and a TR band was placed with hemostasis achieved. The patient t olerated the procedure well. Patient was transported back to the post catheterization holding area in stable condition. Conscious Sedation: Patient was monitored under the direct supervision of myself for conscious sedation using Versed and fentanyl for a total duration of 9 minutes HEMODYNAMICS: Aorta: 118/72 LV: 118/5, LVEDP 18 SELECTIVE CORONARY ARTERIOGRAPHY: LEFT MAIN: The left main is a large caliber vessel which bifurcates into the LAD and circumflex. There is no significant stenosis. LEFT ANTERIOR DESCENDING CORONARY ARTERY: LAD is a large caliber vessel which wraps around to the apex. There are mild luminal irregularities 5 to 10% LEFT CIRCUMFLEX CORONARY ARTERY: Left circumflex is a moderate caliber vessel without significant stenosis. RIGHT CORONARY ARTERY: The right coronary artery is a large caliber vessel which gives off a PDA and PLV branch and is the dominant vessel. There is no significant stenosis. FINAL IMPRESSION: 1. Relatively normal coronary arteries with only mild luminal irregularities of the LAD 5 to 10% stenosis. 2. Mildly elevated left sided filling pressures PLAN: 1. Aggressive risk factor modification per most recent ACC/AHA guidelines. 2. Follow-up in the office in 1-2 weeks.
--- NOTE | 2024-08-22 16:25 | P.PN ---
Subjective Progress Note Date: 08/22/24 68 year old M with PMH of A-Fib, ESRD on HD MWF, HTN, HLD presents to the ED after being told to go to the ED by his PCP for elevated heart rate. Patient denies any active complaints. Denies chest pain, shortness of breath, dizziness, palpitations. In the ED he underwent extensive evaluation. BP 147/100, HR 127, R 99F, RR 22, 94% on RA. CBC, Coag panel, CMP significant for RBC 3.69, Hg 11.6, Hct 34.5, APTT 21.1, K 6.1, bicarb 32, BUN 46, Cr 5.28, glu 101. Trop < 0.012. TSH 2.32. Mag 1.8. EKG Atrial flutter rate of 124. Patient is started on Cardizem drip and admitted for further workup and management. 08/21 Patient was seen and examined. No complaints. HR sustained in the 120s. Cardiology recommends stopping Cardizem and starting PO Cardizem while continuing Metoprolol, NPO after MN for possible cath in the AM. Nephrology will resume HD starting today. BMP shows K 5.2, BUN 50, Cr 6.6, glu 111. Mag 1.7. 08/22 Patient was seen and examined. No complaints. Underwent cardiac cath showing mild CAD. Discussed with Radha NOONAN, monitor HR overnight. BMP shows BUN 33, Cr 4.7. Mag 1.7. General: non toxic, no distress, appears at stated age Derm: warm, dry Head: atraumatic, normocephalic, symmetric Mouth: no lip lesion, mucus membranes moist Cardiovascular: S1S2 ireg, no murmur Lungs: Decreased BS bilaterally, no rales , no accessory muscle use Ext: no gross muscle atrophy, no edema, no contractures Neuro: no focal neuro deficits Psych: Alert and oriented. Based on my assessment of this patient, this patient meets a high complexity level of care. Atrial fibrillation with RVR: Amiodarone 200 mg PO QD. Metoprolol 50 mg PO TID. Cardizem 60 mg PO TID. Eliquis 2.5 mg PO BID. Telemetry monitoring. Cardiology recs appreciated. ESRD on hemodialysis Monday/Monday/Monday: Nephrology on board to resume HD. Hypertension: Metoprolol and Cardizem as above. Hyperlipidemia: Lipitor 20 mg PO QHS. Resolved: HyperK CODE STATUS: FULL CODE. DVT Prophylaxis: Eliquis. GI Prophylaxis: Designated medical POA if patient is not able to make medical decisions for themselves: Sister. I have reviewed the following staff consultant notes: Cardio, Nephro note. I have reviewed the results of the following tests: BMP. Mag. I have ordered the following tests: I have discussed the care of this patient with the following independent historian: ISAIAH. I have independently interpreted the following test below: I have discussed the management of this patient with the following physician: Radha NOONAN Objective - Vital Signs Vital signs: Vital Signs Temp 98.3 F 08/22/24 12:00 Pulse 101 H 08/22/24 16:07 Resp 18 08/22/24 16:07 BP 98/65 08/22/24 16:07 Pulse Ox 97 08/22/24 16:07 FiO2 Intake & Output 08/21/24 08/22/24 08/22/24 18:59 06:59 18:59 Intake Total 693.583 220 380 Output Total 3100 1150 Balance -2406.417 220 -770 Weight 77.2 kg Intake: IV 20 20 140 Invasive Line 1 20 Invasive Line 2 20 20 20 Intake, IV Titration 33.583 Amount Diltiazem 125 mg In 33.583 Sodium Chloride 0.9% 100 ml @ Titrate IV .Q24H [facility] Rx#:[id number] Oral 240 200 240 Hemodialysis 400 Output: Urine 700 1150 Stool 0 Hemodialysis 1400 Hemodialysis Net Amount 1000 Other: Voiding Method Toilet Toilet Toilet Urinal Urinal Urinal # Bowel Movements 1 - Labs CBC & Chem 7: 08/20/24 15:17 08/22/24 06:27 Labs: Abnormal Lab Results - Last 24 Hours (Table) 08/22/24 Range/Units 06:27 BUN 33 H (9-20) mg/dL Creatinine 4.70 H (0.66-1.25) mg/dL
[2024-08-22] MEDS: APIXABAN 2.5 MG TABLET PO SCH (20:41)
[2024-08-22] MEDS: ACETAMINOPHEN TAB 500 MG TAB PO PRN (20:41)
[2024-08-23 03:32] VITALS: RESP 16
[2024-08-23] MEDS ORDERED: HEPARIN SODIUM,PORCINE (1 ML) 2,500 UNIT in SODIUM CHLORIDE 0.9% 250 ML IRRIGATION PRN (07:00)
[2024-08-23] MEDS ORDERED: HEPARIN SODIUM,PORCINE 10,000 UNIT in SODIUM CHLORIDE 0.9% 1,000 ML IRRIGATION PRN (07:00)
[2024-08-23 08:48] LABS: African American GFR (CKD) 9 (>60 ml/min/1.73 sqM); Anion Gap 11 mmol/L; Blood Urea Nitrogen 48 mg/dL (9-20); Calcium 9.3 mg/dL (8.4-10.2); Carbon Dioxide 25 mmol/L (22-30); Chloride 103 mmol/L (98-107); Glucose 118 mg/dL (74-99); Magnesium 1.9 mg/dL (1.6-2.3); Non-African American GFR(CKD) 8 (>60 ml/min/1.73 sqM); Potassium 5.4 mmol/L (3.5-5.1); Sodium 139 mmol/L (137-145)
--- NOTE | 2024-08-23 11:39 | P.DS ---
Providers Date of admission: 08/20/24 17:56 Expected date of discharge: 08/23/24 Attending physician: Olga Hand MD Consults: 08/20/24 17:53 Consult Physician Urgent Consulting Provider: Sheridan Santana Consult Reason/Comments: Hyperkalemia, dialysis Do you want consulting provider notified?: Yes 08/20/24 17:58 Consult Physician Routine Consulting Provider: Frandy Stewart Consult Reason/Comments: AFib RVBR Do you want consulting provider notified?: Yes Primary care physician: Matthew Espino MD Hospital Course: 68 year old M with PMH of A-Fib, ESRD on HD MWF, HTN, HLD presents to the ED after being told to go to the ED by his PCP for elevated heart rate. Patient denies any active complaints. Denies chest pain, shortness of breath, dizziness, palpitations. In the ED he underwent extensive evaluation. BP 147/100, HR 127, R 99F, RR 22, 94% on RA. CBC, Coag panel, CMP significant for RBC 3.69, Hg 11.6, Hct 34.5, APTT 21.1, K 6.1, bicarb 32, BUN 46, Cr 5.28, glu 101. Trop < 0.012. TSH 2.32. Mag 1.8. EKG Atrial flutter rate of 124. Patient is started on Cardizem drip and admitted for further workup and management. Cardizem drip discontinued, Metoprolol dose increased by Cardiology. Nephrology consulted to resume HD. Underwent cardiac cath on 08/22 showing mild CAD. 08/23 Patient was seen and examined. No complaints. Wants to go home. Plans for HD today. BMP K 5.4, BUN 48, Cr 6.5, glu 118. Discharge Plans: Plans for discharge home after HD and Cardiology clearance. Metoprolol dose increased to 50 mg PO TID from BID. All other medications remain the same. Follow up with PCP within 1-2 days of discharge. Resume HD on MWF schedule on discharge. Follow up with Cardiology within 1 week of discharge. General: non toxic, no distress, appears at stated age Derm: warm, dry Head: atraumatic, normocephalic, symmetric Mouth: no lip lesion, mucus membranes moist Cardiovascular: S1S2 ireg, no murmur Lungs: Decreased BS bilaterally, no rales , no accessory muscle use Ext: no gross muscle atrophy, no edema, no contractures Neuro: no focal neuro deficits Psych: Alert and oriented. Discharge Diagnosis: Atrial fibrillation with RVR: Amiodarone 200 mg PO QD. Metoprolol 50 mg PO TID. Cardizem 60 mg PO TID. Eliquis 2.5 mg PO BID. Hyperkalemia: Hopeful improvement with HD. ESRD on hemodialysis Monday/Monday/Monday Hypertension: Metoprolol and Cardizem as above. Hyperlipidemia: Lipitor 20 mg PO QHS. This complex discharge took 35 minutes to complete. Patient Condition at Discharge: Stable Plan - Discharge Summary Discharge Rx Participant: No New Discharge Prescriptions: New Metoprolol Tartrate [Lopressor] 50 mg PO TID #90 tab Continue Cyanocobalamin [Vitamin B-12] 500 mcg PO DAILY Tamsulosin [Flomax] 0.4 mg PO HS Menthol [Biofreeze] 1 applic TOPICAL BID PRN PRN Reason: Pain Acetaminophen [Tylenol Extra Strength] 1,000 mg PO TID PRN PRN Reason: Pain Sennosides [Senokot] 17.2 mg PO DAILY methocarbamoL [Robaxin] 500 mg PO HS Diclofenac Sodium [Diclofenac Sodium 1%] 1 applic TOPICAL QID PRN PRN Reason: Pain methocarbamoL [Robaxin] 500 mg PO BID PRN PRN Reason: Pain Melatonin 3 mg PO HS PRN PRN Reason: Insomnia Sevelamer [Renvela] 800 mg PO DAILY PRN PRN Reason: snacks Sevelamer [Renvela] 2,400 mg PO TID-W/MEALS Nitroglycerin Sl Tabs [Nitrostat] 0.4 mg SL Q5M PRN PRN Reason: Chest Pain Refresh Optive 0.5%-0.9% Eye Drops 1 - 2 drops BOTH EYES TID PRN PRN Reason: Dry Eye(S) Budesonide/Formoterol Fumarate [Symbicort 160-4.5 Mcg Inhaler] 1 puff INHALATION RT-BID Sodium Zirconium Cyclosilicate [Lokelma] 10 gram PO DAILY Aspirin 81 mg PO DAILY #30 tab Diltiazem Oral [Cardizem*] 60 mg PO TID #90 tab Amiodarone [Cordarone] 200 mg PO DAILY #30 tab Buprenorphine [Butrans 15 MCG/HR] 1 patch TRANSDERM WEEKLY Apixaban [Eliquis] 2.5 mg PO BID Sodium Bicarbonate Tab 650 mg PO BID Patiromer Calcium Sorbitex [Veltassa] 8.4 gm PO SUTUTHSA Omeprazole [PriLOSEC] 20 mg PO BID Albuterol Sulfate [Albuterol Sulfate Hfa] 1 puff INHALATION RT-QID PRN PRN Reason: Wheezing Loratadine [Claritin] 10 mg PO DAILY Ipratropium-Albuterol Nebulize [Duoneb 0.5 mg-3 mg/3 ml Soln] 3 ml INHALATION RT-BID PRN PRN Reason: Shortness Of Breath Atorvastatin [Lipitor] 20 mg PO HS 30 Days #30 tab Gabapentin [Neurontin] 100 mg PO TID #0 Ammonium Lactate Lotion [Lac-Hydrin 12% Lotion] 1 applic TOPICAL DAILY Loperamide HCl [Imodium A-D] 2 mg PO QID PRN PRN Reason: Diarrhea Midodrine [ProAmatine] 5 mg PO TID Discontinued Metoprolol Tartrate [Lopressor] 50 mg PO BID #60 tab Discharge Medication List Cyanocobalamin [Vitamin B-12] 500 mcg PO DAILY 07/24/23 [History] Omeprazole [PriLOSEC] 20 mg PO BID 07/24/23 [History] Patiromer Calcium Sorbitex [Veltassa] 8.4 gm PO SUTUTHSA 07/24/23 [History] Sodium Bicarbonate Tab 650 mg PO BID 07/24/23 [History] Tamsulosin [Flomax] 0.4 mg PO HS 07/24/23 [History] Acetaminophen [Tylenol Extra Strength] 1,000 mg PO TID PRN 03/26/24 [History] Albuterol Sulfate [Albuterol Sulfate Hfa] 1 puff INHALATION RT-QID PRN 03/26/24 [History] Diclofenac Sodium [Diclofenac Sodium 1%] 1 applic TOPICAL QID PRN 03/26/24 [History] Loratadine [Claritin] 10 mg PO DAILY 03/26/24 [History] Melatonin 3 mg PO HS PRN 03/26/24 [History] Menthol [Biofreeze] 1 applic TOPICAL BID PRN 03/26/24 [History] Sennosides [Senokot] 17.2 mg PO DAILY 03/26/24 [History] methocarbamoL [Robaxin] 500 mg PO BID PRN 03/26/24 [History] methocarbamoL [Robaxin] 500 mg PO HS 03/26/24 [History] Ipratropium-Albuterol Nebulize [Duoneb 0.5 mg-3 mg/3 ml Soln] 3 ml INHALATION RT-BID PRN 04/06/24 [History] Atorvastatin [Lipitor] 20 mg PO HS 30 Days #30 tab 04/10/24 [Rx] Nitroglycerin Sl Tabs [Nitrostat] 0.4 mg SL Q5M PRN 04/29/24 [History] Refresh Optive 0.5%-0.9% Eye Drops 1 - 2 drops BOTH EYES TID PRN 04/29/24 [History] Sevelamer [Renvela] 2,400 mg PO TID-W/MEALS 04/29/24 [History] Sevelamer [Renvela] 800 mg PO DAILY PRN 04/29/24 [History] Gabapentin [Neurontin] 100 mg PO TID #0 05/02/24 [Rx] Ammonium Lactate Lotion [Lac-Hydrin 12% Lotion] 1 applic TOPICAL DAILY 07/31/24 [History] Budesonide/Formoterol Fumarate [Symbicort 160-4.5 Mcg Inhaler] 1 puff INHALATION RT-BID 07/31/24 [History] Sodium Zirconium Cyclosilicate [Lokelma] 10 gram PO DAILY 07/31/24 [History] Amiodarone [Cordarone] 200 mg PO DAILY #30 tab 08/09/24 [Rx] Aspirin 81 mg PO DAILY #30 tab 08/09/24 [Rx] Diltiazem Oral [Cardizem*] 60 mg PO TID #90 tab 08/09/24 [Rx] Apixaban [Eliquis] 2.5 mg PO BID 08/20/24 [History] Buprenorphine [Butrans 15 MCG/HR] 1 patch TRANSDERM WEEKLY 08/20/24 [History] Loperamide HCl [Imodium A-D] 2 mg PO QID PRN 08/20/24 [History] Midodrine [ProAmatine] 5 mg PO TID 08/20/24 [History] Metoprolol Tartrate [Lopressor] 50 mg PO TID #90 tab 08/23/24 [Rx] Follow up Appointment(s)/Referral(s): Matthew Espino MD [Primary Care Provider] - 1-2 days Jf Steinberg MD [Medical Doctor] - 1 Week Activity/Diet/Wound Care/Special Instructions: [facility]: Call for transport- [phone] or Em [phone] Discharge Disposition: HOME SELF-CARE
[2024-08-23 12:45] VITALS: BP 98/65; PULSE 104; TEMP 98
--- NOTE | 2024-08-23 18:45 | P.PN ---
Subjective Patient is seen for follow-up for end-stage renal disease. Seen on hemodialysis. Tolerating treatment well. No complaints of palpitations or shortness of breath. Objective - Vital Signs Vital signs: Vital Signs Temp 98.0 F 08/23/24 12:43 Pulse 104 H 08/23/24 12:43 Resp 16 08/23/24 12:43 BP 98/65 08/23/24 12:43 Pulse Ox 93 L 08/23/24 07:00 FiO2 Intake & Output 08/22/24 08/23/24 08/23/24 18:59 06:59 18:59 Intake Total 860 1480 840 Output Total 1599 433 6765 Balance -390 1355 -2860 Weight 77.3 kg Intake: IV 140 40 20 Invasive Line 1 20 20 10 Invasive Line 2 20 20 10 Oral 720 1440 420 Hemodialysis 400 Output: Urine 1250 125 300 Hemodialysis 1900 Hemodialysis Net Amount 1500 Other: Voiding Method Toilet Toilet Toilet Urinal Urinal Urinal # Voids 1 # Bowel Movements 1 0 - Exam Patient is awake, comfortable, no acute distress examination of the heart S1 and S2 Examination of the lungs bilateral breath sounds are heard Abdomen is soft nontender Examination of lower extremity shows no significant edema [employer] exam grossly intact - Labs CBC & Chem 7: 08/20/24 15:17 08/23/24 08:19 Labs: Abnormal Lab Results - Last 24 Hours (Table) 08/23/24 Range/Units 08:19 Potassium 5.4 H (3.5-5.1) mmol/L BUN 48 H (9-20) mg/dL Creatinine 6.50 H (0.66-1.25) mg/dL Glucose 118 H (74-99) mg/dL Assessment and Plan Assessment: 1. End-stage renal disease on hemodialysis on Monday schedule 2. A-fib with RVR status post Cardizem drip 3. Hyperkalemia associated with end-stage renal disease scheduled for hemodialysis today 4. CKD mineral bone disorder Plan: Hemodialysis today Continue off of sodium bicarb Continue with Renvela with meals
== END 2024-08-23 14:31 | disposition home or self-care (01) | DRG 286 ==
LOC: EC 14:40 → 3SCARD 17:55 → EEVIPCON 17:56 → OBSVTOIN 17:56 → 3SCARD 18:31
PROVIDERS: ADMIT Family Medicine; ATTEND Family Medicine
PROC: 3E033RZ Introduction of Antiarrhythmic into Peripheral Vein, Percutaneous Approach (ICD-10-PCS; principal; 2024-08-20)
PROC: 5A1D70Z Performance of Urinary Filtration, Intermittent, Less than 6 Hours Per Day (ICD-10-PCS; 2024-08-21)
PROC: B2111ZZ Fluoroscopy of Multiple Coronary Arteries using Low Osmolar Contrast (ICD-10-PCS; 2024-08-22)
PROC: 4A023N7 Measurement of Cardiac Sampling and Pressure, Left Heart, Percutaneous Approach (ICD-10-PCS; 2024-08-22)
DX: I48.0 Paroxysmal atrial fibrillation (principal); N18.6 End stage renal disease; I13.2 Hypertensive heart and chronic kidney disease with heart failure and with stage 5 chronic kidney disease, or end stage renal disease; I50.9 Heart failure, unspecified; I49.5 Sick sinus syndrome; Z99.2 Dependence on renal dialysis; I48.3 Typical atrial flutter; E78.5 Hyperlipidemia, unspecified; E87.5 Hyperkalemia; F17.200 Nicotine dependence, unspecified, uncomplicated; I25.10 Atherosclerotic heart disease of native coronary artery without angina pectoris; E83.89 Other disorders of mineral metabolism; M89.8X9 Other specified disorders of bone, unspecified site; N40.0 Benign prostatic hyperplasia without lower urinary tract symptoms; K21.9 Gastro-esophageal reflux disease without esophagitis; I10 Essential (primary) hypertension; M47.9 Spondylosis, unspecified; G62.9 Polyneuropathy, unspecified; Z79.01 Long term (current) use of anticoagulants; Z79.899 Other long term (current) drug therapy; Z79.51 Long term (current) use of inhaled steroids; Z79.82 Long term (current) use of aspirin; Z87.820 Personal history of traumatic brain injury
CPT/HCPCS: 36415; 71046; 80048; 80053; 83735; 84132; 84443; 84484; 85025; 85610; 85730; 90935; 93005; 93458; 94640; 96365; 96366; 96375; 99285

== ENCOUNTER 2024-09-18 07:42 | Observation (INO) | payer OTHER ==
--- NOTE | 2024-09-18 08:24 | ED ---
General Adult HPI - General Chief complaint: Upper Respiratory Infection Stated complaint: dizziness Time Seen by Provider: 09/18/24 07:44 Source: patient, EMS, RN notes reviewed Mode of arrival: EMS Limitations: no limitations - History of Present Illness Initial comments: 68 year old male with medical history significant for atrial fibrillation and CKD presents to the ED for evaluation of tachycardia. He was supposed to get dialysis today but didn't because of the tachycardia He also reports having cough, headaches, congestion, and sore throat for the past week. He denies any chest pain, recent SOB, fevers or chills - Related Data Home Medications Medication Instructions Recorded Confirmed Cyanocobalamin [Vitamin B-12] 500 mcg PO DAILY 07/24/23 09/18/24 Omeprazole [PriLOSEC] 20 mg PO BID 07/24/23 09/18/24 Patiromer Calcium Sorbitex 8.4 gm PO SUTUTHSA 07/24/23 09/18/24 [Veltassa] Sodium Bicarbonate Tab 650 mg PO BID 07/24/23 09/18/24 Tamsulosin [Flomax] 0.4 mg PO HS 07/24/23 09/18/24 Acetaminophen [Tylenol Extra 1,000 mg PO TID PRN 03/26/24 09/18/24 Strength] Albuterol Sulfate [Albuterol 1 puff INHALATION RT-QID PRN 03/26/24 09/18/24 Sulfate Hfa] Diclofenac Sodium [Diclofenac 1 applic TOPICAL QID PRN 03/26/24 09/18/24 Sodium 1%] Loratadine [Claritin] 10 mg PO DAILY 03/26/24 09/18/24 Melatonin 3 mg PO HS PRN 03/26/24 09/18/24 Menthol [Biofreeze] 1 applic TOPICAL BID PRN 03/26/24 09/18/24 Sennosides [Senokot] 17.2 mg PO DAILY 03/26/24 09/18/24 methocarbamoL [Robaxin] 500 mg PO BID PRN 03/26/24 09/18/24 methocarbamoL [Robaxin] 500 mg PO HS 03/26/24 09/18/24 Ipratropium-Albuterol Nebulize 3 ml INHALATION RT-BID PRN 04/06/24 09/18/24 [Duoneb 0.5 mg-3 mg/3 ml Soln] Nitroglycerin Sl Tabs [Nitrostat] 0.4 mg SL Q5M PRN 04/29/24 09/18/24 Refresh Optive 0.5%-0.9% Eye Drops 1 - 2 drops BOTH EYES TID PRN 04/29/24 09/18/24 Sevelamer [Renvela] 2,400 mg PO TID-W/MEALS 04/29/24 09/18/24 Sevelamer [Renvela] 800 mg PO DAILY PRN 04/29/24 09/18/24 Ammonium Lactate Lotion 1 applic TOPICAL DAILY 07/31/24 09/18/24 [Lac-Hydrin 12% Lotion] Budesonide/Formoterol Fumarate 1 puff INHALATION RT-BID 07/31/24 09/18/24 [Symbicort 160-4.5 Mcg Inhaler] Sodium Zirconium Cyclosilicate 10 gram PO DAILY 07/31/24 09/18/24 [Lokelma] Apixaban [Eliquis] 2.5 mg PO BID 08/20/24 09/18/24 Buprenorphine [Butrans 15 MCG/HR] 1 patch TRANSDERM WEEKLY 08/20/24 09/18/24 Loperamide HCl [Imodium A-D] 2 mg PO QID PRN 08/20/24 09/18/24 Midodrine [ProAmatine] 5 mg PO TID 08/20/24 09/18/24 Menthol [[place]] 7.5 mg MM DIRECTED PRN 09/18/24 09/18/24 Previous Rx's Medication Instructions Recorded Atorvastatin [Lipitor] 20 mg PO HS 30 Days #30 tab 04/10/24 Gabapentin [Neurontin] 100 mg PO TID #0 05/02/24 Amiodarone [Cordarone] 200 mg PO DAILY #30 tab 08/09/24 Aspirin 81 mg PO DAILY #30 tab 08/09/24 Diltiazem Oral [Cardizem*] 60 mg PO TID #90 tab 08/09/24 Allergies Allergy/AdvReac Type Severity Reaction Status Date / Time No Known Allergies Allergy Verified 09/18/24 07:50 Review of Systems ROS Statement: Those systems with pertinent positive or pertinent negative responses have been documented in the HPI. ROS Other: All systems not noted in ROS Statement are negative. Past Medical History Past Medical History: Atrial Fibrillation, Atrial Flutter, Dialysis, GERD/Reflux, Hyperlipidemia, Hypertension Additional Past Medical History / Comment(s): BPH, spinal arthritis, severe neuropathy of feet bilaterally, TBI History of Any Multi-Drug Resistant Organisms: None Reported Past Surgical History: Heart Catheterization, Hernia Repair Additional Past Surgical History / Comment(s): AV fistula placed Past Anesthesia/Blood Transfusion Reactions: No Reported Reaction Past Psychological History: No Psychological Hx Reported Smoking Status: Current every day smoker Past Alcohol Use History: None Reported Past Drug Use History: None Reported General Exam Limitations: no limitations General appearance: alert, in no apparent distress Head exam: Present: atraumatic, normocephalic, normal inspection Eye exam: Present: normal appearance, PERRL, EOMI. Absent: scleral icterus, conjunctival injection, periorbital swelling ENT exam: Present: normal exam, mucous membranes moist Respiratory exam: Present: normal lung sounds bilaterally. Absent: respiratory distress, wheezes, rales, rhonchi, stridor Cardiovascular Exam: Present: tachycardia, irregular rhythm, normal heart sounds. Absent: regular rate, normal rhythm, systolic murmur, diastolic murmur, rubs, gallop, clicks Course Vital Signs 09/18/24 09/18/24 09/18/24 07:44 09:17 09:30 Temperature 98.5 F Pulse Rate 126 H 123 H 123 H Respiratory 20 20 20 Rate Blood Pressure 124/94 128/92 132/96 O2 Sat by Pulse 94 L 95 97 Oximetry 09/18/24 09/18/24 09/18/24 10:20 11:49 12:26 Temperature 98.1 F Pulse Rate 121 H 108 H 124 H Respiratory 18 18 16 Rate Blood Pressure 134/98 119/72 124/91 O2 Sat by Pulse 97 95 97 Oximetry 09/18/24 09/18/24 09/18/24 14:05 14:45 16:21 Temperature Pulse Rate 96 80 111 H Respiratory 16 18 18 Rate Blood Pressure 115/85 97/57 103/73 O2 Sat by Pulse 94 L 94 L 95 Oximetry 09/18/24 17:14 Temperature Pulse Rate 92 Respiratory 18 Rate Blood Pressure 105/84 O2 Sat by Pulse 96 Oximetry EKG Findings - EKG Comments: EKG Findings:: EKG performed at 8: 16 atrial flutter with RVR rate of 113 QRS 108 QT/QTc 316/383 - EKG Results: EKG: interpreted by NICOLAS Medical Decision Making - Medical Decision Making Was pt. sent in by a medical professional or institution ([facility], [facility], urgent care, hospital, or senior living...) When possible be specific @Dialysis Did you speak to anyone other than the patient for history (EMS, parent, family, police, friend...)? What history was obtained from this source @ -No Did you review nursing and triage notes (agree or disagree)? Why? @ -I reviewed and agree with nursing and triage notes Were old charts reviewed (outside hosp., previous admission, EMS record, old EKG, old radiological studies, urgent care reports/EKG's, senior living records)? Report findings @ -No old charts were reviewed Differential Diagnosis (chest pain, altered mental status, abdominal pain women, abdominal pain men, vaginal bleeding, weakness, fever, dyspnea, syncope, headache, dizziness, GI bleed, back pain, seizure, CVA, palpatations, mental health, musculoskeletal)? @ -Differential Palpitations Ventricular arrhythmias, atrial arrhythmias, myocardial infarction, anemia, thyrotoxicosis, electrolyte imbalance, hypokalemia, pulmonary embolism, pulmonary disease, drugs, alcohol, anxiety, stress.... This is not meant to be an all-inclusive list. EKG interpreted by me (3pts min.). @ -As above X-rays interpreted by me (1pt min.). @ -Chest x-ray shows no significant acute cardiopulmonary process. CT interpreted by me (1pt min.). @ -None done U/S interpreted by me (1pt. min.). @ -None done What testing was considered but not performed or refused? (CT, X-rays, U/S, labs)? Why? @ -None What meds were considered but not given or refused? Why? @ -None Did you discuss the management of the patient with other professionals (professionals i.e. [facility], [facility], lab, RT, psych nurse, social work coordinator, consumer educator, teacher, accounts officer, manager rn case)? Give summary @ -Sound physician for admission Was smoking cessation discussed for >3mins.? @ -No Was critical care preformed (if so, how long)? @ -35 minutes Were there social determinants of health that impacted care today? How? (Homelessness, low income, unemployed, alcoholism, drug addiction, transportation, low edu. Level, literacy, decrease access to med. care, halfway, rehab)? @ -No Was there de-escalation of care discussed even if they declined (Discuss DNR or withdrawal of care, Hospice)? DNR status @ -No What co-morbidities impacted this encounter? (DM, HTN, Smoking, COPD, CAD, Cancer, CVA, ARF, Chemo, Hep., AIDS, mental health diagnosis, sleep apnea, morbid obesity)? @ -ESRD Was patient admitted / discharged? Hospital course, mention meds given and route, prescriptions, significant lab abnormalities, going to OR and other pertinent info. @ -Admitted patient is found to have atrial flutter with RVR patient was started on Cardizem. Patient will have admission for further rate control, cardiology evaluation and dialysis. Undiagnosed new problem with uncertain prognosis? @ -No Drug Therapy requiring intensive monitoring for toxicity (Heparin, Nitro, Insulin, Cardizem)? @ -Cardizem Were any procedures done? @ -No Diagnosis/symptom? @ -Atrial flutter RVR ESRD on dialysis Acute, or Chronic, or Acute on Chronic? @ -Acute Uncomplicated (without systemic symptoms) or Complicated (systemic symptoms)? @ -Complicated Side effects of treatment? @ -No Exacerbation, Progression, or Severe Exacerbation? @ -No Poses a threat to life or bodily function? How? (Chest pain, [place], [place], pneumonia, PE, COPD, DKA, ARF, appy, cholecystitis, CVA, Diverticulitis, Homicidal, S uicidal, threat to staff... and all critical care pts) @ -Risk cardiac function - Lab Data Result diagrams: 09/18/24 08:36 09/18/24 08:36 Lab Results 09/18/24 09/18/24 09/18/24 Range/Units 08:36 08:36 08:36 WBC 9.90 (4.50-10.00) 10*3/uL RBC 3.52 L (4.40-5.60) 10*6/uL Hgb 11.1 L (13.0-17.0) g/dL Hct 33.4 L (39.6-50.0) % MCV 94.9 (80.0-97.0) fL MCH 31.5 (27.0-32.0) pg MCHC 33.2 (32.0-37.0) g/dL Plt Count 185 (140-440) 10*3/uL MPV 9.8 (9.5-12.2) fL Immature Gran % (Auto) 0.3 % Neutrophils % 76.5 % Lymphocytes % 12.5 % Monocytes % 7.9 % Eosinophils % 2.1 % Basophils % 0.7 % Immature Gran # 0.03 (0.00-0.04) 10*3/uL Neutrophils # 7.57 (1.80-7.70) 10*3/uL Lymphocytes # 1.24 (0.90-5.00) 10*3/uL Monocytes # 0.78 (0.20-1.00) 10*3/uL Eosinophils # 0.21 (0.04-0.35) 10*3/uL Basophils # 0.07 (0.00-0.10) 10*3/uL PT 11.2 (10.0-12.5) sec INR 1.0 (<1.2) APTT 25.6 (22.0-30.0) sec Sodium 144 (137-145) mmol/L Potassium 4.9 (3.5-5.1) mmol/L Chloride 107 (98-107) mmol/L Carbon Dioxide 26 (22-30) mmol/L Anion Gap 11 mmol/L BUN 50 H (9-20) mg/dL Creatinine 5.98 H (0.66-1.25) mg/dL Est GFR (CKD-EPI)AfAm 10 (>60 ml/min/1.73 sqM) Est GFR (CKD-EPI)NonAf 9 (>60 ml/min/1.73 sqM) Glucose 109 H (74-99) mg/dL Calcium 9.7 (8.4-10.2) mg/dL Magnesium 1.9 (1.6-2.3) mg/dL Total Bilirubin 0.8 (0.2-1.3) mg/dL AST 15 L (17-59) U/L ALT 21 (4-49) U/L Alkaline Phosphatase 123 (38-126) U/L Troponin I (0.000-0.034) ng/mL NT-Pro-B Natriuret Pep 5640 pg/mL Total Protein 7.2 (6.3-8.2) g/dL Albumin 4.2 (3.5-5.0) g/dL Influenza Type A (PCR) (Not Detectd) Influenza Type B (PCR) (Not Detectd) RSV (PCR) (Not Detectd) SARS-CoV-2 (PCR) (Not Detectd) 09/18/24 09/18/24 Range/Units 08:36 08:36 WBC (4.50-10.00) 10*3/uL RBC (4.40-5.60) 10*6/uL Hgb (13.0-17.0) g/dL Hct (39.6-50.0) % MCV (80.0-97.0) fL MCH (27.0-32.0) pg MCHC (32.0-37.0) g/dL Plt Count (140-440) 10*3/uL MPV (9.5-12.2) fL Immature Gran % (Auto) % Neutrophils % % Lymphocytes % % Monocytes % % Eosinophils % % Basophils % % Immature Gran # (0.00-0.04) 10*3/uL Neutrophils # (1.80-7.70) 10*3/uL Lymphocytes # (0.90-5.00) 10*3/uL Monocytes # (0.20-1.00) 10*3/uL Eosinophils # (0.04-0.35) 10*3/uL Basophils # (0.00-0.10) 10*3/uL PT (10.0-12.5) sec INR (<1.2) APTT (22.0-30.0) sec Sodium (137-145) mmol/L Potassium (3.5-5.1) mmol/L Chloride (98-107) mmol/L Carbon Dioxide (22-30) mmol/L Anion Gap mmol/L BUN (9-20) mg/dL Creatinine (0.66-1.25) mg/dL Est GFR (CKD-EPI)AfAm (>60 ml/min/1.73 sqM) Est GFR (CKD-EPI)NonAf (>60 ml/min/1.73 sqM) Glucose (74-99) mg/dL Calcium (8.4-10.2) mg/dL Magnesium (1.6-2.3) mg/dL Total Bilirubin (0.2-1.3) mg/dL AST (17-59) U/L ALT (4-49) U/L Alkaline Phosphatase (38-126) U/L Troponin I <0.012 (0.000-0.034) ng/mL NT-Pro-B Natriuret Pep pg/mL Total Protein (6.3-8.2) g/dL Albumin (3.5-5.0) g/dL Influenza Type A (PCR) Not Detected (Not Detectd) Influenza Type B (PCR) Not Detected (Not Detectd) RSV (PCR) Detected A (Not Detectd) SARS-CoV-2 (PCR) Not Detected (Not Detectd) Critical Care Time Critical Care Time: Yes Total Critical Care Time: 35 Disposition Clinical Impression: Atrial flutter with rapid ventricular response, End stage renal disease on dialysis Disposition: ADMITTED IP TO THIS HOSP Condition: Fair Time of Disposition: 10:22
[2024-09-18 08:58] LABS: Basophils # (A) 0.07 10*3/uL (0.00-0.10); Basophils % (A) 0.7 %; Eosinophils # (A) 0.21 10*3/uL (0.04-0.35); Eosinophils % (A) 2.1 %; HCT 33.4 % (39.6-50.0); HGB 11.1 g/dL (13.0-17.0); Lymphocytes # (A) 1.24 10*3/uL (0.90-5.00); Lymphocytes % (A) 12.5 %; MCH 31.5 pg (27.0-32.0); MCHC 33.2 g/dL (32.0-37.0); MCV 94.9 fL (80.0-97.0); Mean Platelet Volume 9.8 fL (9.5-12.2); Monocytes # (A) 0.78 10*3/uL (0.20-1.00); Monocytes % (A) 7.9 %; Neutrophils # (A) 7.57 10*3/uL (1.80-7.70); Neutrophils % (A) 76.5 %; Platelet Count 185 10*3/uL (140-440); RBC 3.52 10*6/uL (4.40-5.60); RDW 14.3 % (11.5-14.5)
[2024-09-18 09:04] LABS: ALT 21 U/L (4-49); AST 15 U/L (17-59); African American GFR (CKD) 10 (>60 ml/min/1.73 sqM); Albumin 4.2 g/dL (3.5-5.0); Alkaline Phosphatase 123 U/L (38-126); Anion Gap 11 mmol/L; Blood Urea Nitrogen 50 mg/dL (9-20); Calcium 9.7 mg/dL (8.4-10.2); Carbon Dioxide 26 mmol/L (22-30); Chloride 107 mmol/L (98-107); Glucose 109 mg/dL (74-99); Magnesium 1.9 mg/dL (1.6-2.3); Non-African American GFR(CKD) 9 (>60 ml/min/1.73 sqM); Potassium 4.9 mmol/L (3.5-5.1); Sodium 144 mmol/L (137-145); Total Bilirubin 0.8 mg/dL (0.2-1.3); Total Protein 7.2 g/dL (6.3-8.2)
[2024-09-18 09:06] LABS: Partial Thromboplastin Time 25.6 sec (22.0-30.0); Prothrombin Time 11.2 sec (10.0-12.5)
--- NOTE | 2024-09-18 09:08 | XR ---
EXAMINATION TYPE: XR chest 2V DATE OF EXAM: 09/18/2024 8:51 AM COMPARISON: Chest radiographs from 08/20/2024 CLINICAL INDICATION: Male, 68 years old with history of difficulty breathing; TECHNIQUE: XR chest 2V Frontal and lateral views of the chest. FINDINGS: Lungs/Pleura: There is no evidence of pleural effusion, focal consolidation, or pneumothorax. Pulmonary vascularity: Unremarkable. Heart/mediastinum: Cardiomediastinal silhouette is unremarkable. Musculoskeletal: No acute osseous pathology. IMPRESSION: Low lung volumes with a generalized hazy appearance which could represent atelectasis versus pulmonar y edema correlate with serum BNP. [facility], , 09/18/2024 9:05 AM
[2024-09-18 09:13] LABS: NT-Pro-B-Type Natriuretic Pept 5640 pg/mL
[2024-09-18] MEDS: DILTIAZEM 5 MG/ML 5 ML VIAL IVP STA (09:27)
[2024-09-18] MEDS: DILTIAZEM 125 MG in DEXTROSE 5% IN WATER 100 ML IV SCH (09:29)
[2024-09-18 09:30] LABS: Influenza A Not Detected (Not Detectd); Influenza B Not Detected (Not Detectd); RSV Detected (Not Detectd)
[2024-09-18] MEDS ORDERED: NALOXONE 0.4 MG/ML 1 ML VIAL IV PRN (10:16)
[2024-09-18] MEDS ORDERED: ACETAMINOPHEN TAB 325 MG TAB PO PRN (10:16)
[2024-09-18] MEDS ORDERED: SEVELAMER 800 MG TAB PO PRN (11:36)
[2024-09-18] MEDS ORDERED: LOPERAMIDE 2 MG CAP PO PRN (11:36)
[2024-09-18] MEDS ORDERED: IPRATROPIUM-ALBUTEROL 3 ML NEB INHALATION PRN (11:36)
[2024-09-18] MEDS ORDERED: ALBUTEROL NEBULIZED 2.5 MG/3 ML INHALATION PRN (11:36)
[2024-09-18] MEDS ORDERED: MELATONIN 3 MG TABLET PO PRN (11:36)
--- NOTE | 2024-09-18 11:52 | P.HPIM ---
History of Present Illness H&P Date: 09/18/24 History of Presenting Illness: Patient is a 68-year-old male with a past medical history of CAD, paroxysmal atrial fibrillation on anticoagulation with Eliquis, hypertension, hyperlipidemia, ESRD on dialysis( Monday/Monday/Monday), BPH, severe neuropathy of bilateral lower extremities, and nicotine dependence. He presented to our facility from dialysis center secondary to A-fib RVR. Patient reports he has been experiencing symptoms of an upper respiratory infection including headache, productive cough, congestion, and sore throat x 1 week. He denies having any chest pain, palpitations, or shortness of breath. He reports upon arriving to the dialysis center they took his vitals and found him to have an elevated heart rate and immediately called EMS to transport him to the hospital. He denies having any recent fevers, chills, diaphoresis, chest pain, palpitations, shortness of breath, nausea, vomiting, or experiencing any numbness/tingling/weakness/swelling in his extremities. He reports he did not take his morning medications as she usually takes them after dialysis. Upon arrival to our facility, patient underwent evaluation in the emergency department. Vital signs upon arrival show blood pressure 124/94, heart rate 126, respiratory rate 20, temp 98.5 F, and SpO2 of 94% on room air. EKG was completed fibrillation with a rapid ventricular rate at 113 bpm. Chest x-ray completed showing low lung volumes with generalized haziness. Labs completed and reviewed. CBC showing normocytic anemia with hemoglobin of 11.1. Coagulation profile normal findings. BMP consistent with known ESRD with BUN of 50, creatinine of 5.98, GFR of 9. Blood glucose 109. Magnesium 1.9. Liver profile showing no significant abnormalities. Troponin was negative at less than 0.012 and proBNP was 5640. Influenza A influenza B and COVID PCR were n egative. RSV was positive. Review of systems: Pertinent positives and negatives as discussed in HPI, a complete review of systems was performed and all other systems are negative. Physical exam: Vital signs reviewed and stable. General: Nontoxic, no distress and appears stated age. Derm: Skin warm and dry, normal coloration for ethnicity. Head: Atraumatic, normocephalic and symmetric. Eyes: EOM's intact, no lid lag, and anicteric sclera Mouth: no lip lesions, mucus membranes moist Cardiovascular: Irregularly irregular, no murmur, positive posterior tibial pulses bilaterally, and cap refill < 2 seconds. Lungs: Respirations even, regular, and unlabored on room air. Lungs diminished, no rhonchi, no rales, no wheezing, and no accessory muscle usage. Abdominal: soft, nontender to palpation, no guarding, no appreciable organomegaly Ext: ROM intact. No gross muscle atrophy, no edema, no contractures Neuro: Speech clear, face symmetrical and CN II-XII grossly intact with no noted focal neuro deficits Psych: Alert and oriented to person, place, time, and situation. Appropriate and pleasant affect. Assessment and Plan of Care: Atrial fibrillation with RVR -Cardiology consulted, appreciate recommendations -Telemetry monitoring -Continue Cardizem infusion at 5 mg/h and titrate up to 15 mg/h for goal heart rate 80-100 -Patient to continue daily medication regimen with aspirin 81 mg daily, atorvastatin 20 mg nightly, metoprolol 50 mg 3 times daily, Eliquis 2.5 mg twice daily, and amiodarone 200 mg daily, RSV infection -Symptomatic and supportive treatment. -Continue DuoNebs scheduled 4 times daily and as needed for wheezing/shortness of breath. -Tessalon Perles 200 mg 3 times daily as needed for cough ESRD on hemodialysis -Nephrology consulted for management of hemodialysis. -Patient to remain on continuous telemetry monitoring. -Continue Renvela 2400 mg 3 times daily with meals and 800 mg with evening snack. CAD Hypertension Hyperlipidemia -Patient to continue daily medication regimen with aspirin 81 mg daily, metoprolol 50 mg 3 times daily, and midodrine 5 mg 3 times daily with meals. Severe peripheral neuropathy -Continue gabapentin 100 mg 3 times daily. BPH -Continue Flomax 0.4 mg nightly. Data and imaging reviewed: -As stated above in HPI The patient is admitted with an anticipated greater than 2 midnight stay for evaluation of atrial fibrillation with RVR and missed dialysis CODE STATUS: Full code DVT prophylaxis: Kendra Discussed with: Patient, RN, and ED physician Anticipated discharge date: Pending clinical course, likely 24 to [address]: Home Patient was seen independently by Nurse Practitioner. This document was prepared using [employer] dictation software. Please allow for errors in sas programmer remote while rare they do occur. Harpal Kaufman NP rendered care for this patient independently, reviewed the findings and plan as documented in the note above and agree with plan. I did not physically speak with or examine the patient on this date. Past Medical History Past Medical History: Atrial Fibrillation, Atrial Flutter, Dialysis, GERD/Reflux, Hyperlipidemia, Hypertension Additional Past Medical History / Comment(s): BPH, spinal arthritis, severe neuropathy of feet bilaterally, TBI History of Any Multi-Drug Resistant Organisms: None Reported Past Surgical History: Heart Catheterization, Hernia Repair Additional Past Surgical History / Comment(s): AV fistula placed Past Anesthesia/Blood Transfusion Reactions: No Reported Reaction Past Psychological History: No Psychological Hx Reported Smoking Status: Current every day smoker Past Alcohol Use History: None Reported Past Drug Use History: None Reported Medications and Allergies Home Medications Medication Instructions Recorded Confirmed Type Cyanocobalamin [Vitamin B-12] 500 mcg PO DAILY 07/24/23 09/18/24 History Omeprazole [PriLOSEC] 20 mg PO BID 07/24/23 09/18/24 History Patiromer Calcium Sorbitex 8.4 gm PO SUTUTHSA 07/24/23 09/18/24 History [Veltassa] Sodium Bicarbonate Tab 650 mg PO BID 07/24/23 09/18/24 History Tamsulosin [Flomax] 0.4 mg PO HS 07/24/23 09/18/24 History Acetaminophen [Tylenol Extra 1,000 mg PO TID PRN 03/26/24 09/18/24 History Strength] Albuterol Sulfate [Albuterol 1 puff INHALATION RT-QID PRN 03/26/24 09/18/24 History Sulfate Hfa] Diclofenac Sodium [Diclofenac 1 applic TOPICAL QID PRN 03/26/24 09/18/24 History Sodium 1%] Loratadine [Claritin] 10 mg PO DAILY 03/26/24 09/18/24 History Melatonin 3 mg PO HS PRN 03/26/24 09/18/24 History Menthol [Biofreeze] 1 applic TOPICAL BID PRN 03/26/24 09/18/24 History Sennosides [Senokot] 17.2 mg PO DAILY 03/26/24 09/18/24 History methocarbamoL [Robaxin] 500 mg PO BID PRN 03/26/24 09/18/24 History methocarbamoL [Robaxin] 500 mg PO HS 03/26/24 09/18/24 History Ipratropium-Albuterol Nebulize 3 ml INHALATION RT-BID PRN 04/06/24 09/18/24 History [Duoneb 0.5 mg-3 mg/3 ml Soln] Atorvastatin [Lipitor] 20 mg PO HS 30 Days #30 tab 04/10/24 09/18/24 Rx Nitroglycerin Sl Tabs [Nitrostat] 0.4 mg SL Q5M PRN 04/29/24 09/18/24 History Refresh Optive 0.5%-0.9% Eye Drops 1 - 2 drops BOTH EYES TID PRN 04/29/24 09/18/24 History Sevelamer [Renvela] 2,400 mg PO TID-W/MEALS 04/29/24 09/18/24 History Sevelamer [Renvela] 800 mg PO DAILY PRN 04/29/24 09/18/24 History Gabapentin [Neurontin] 100 mg PO TID #0 05/02/24 09/18/24 Rx Ammonium Lactate Lotion 1 applic TOPICAL DAILY 07/31/24 09/18/24 History [Lac-Hydrin 12% Lotion] Budesonide/Formoterol Fumarate 1 puff INHALATION RT-BID 07/31/24 09/18/24 History [Symbicort 160-4.5 Mcg Inhaler] Sodium Zirconium Cyclosilicate 10 gram PO DAILY 07/31/24 09/18/24 History [Lokelma] Amiodarone [Cordarone] 200 mg PO DAILY #30 tab 08/09/24 09/18/24 Rx Aspirin 81 mg PO DAILY #30 tab 08/09/24 09/18/24 Rx Diltiazem Oral [Cardizem*] 60 mg PO TID #90 tab 08/09/24 09/18/24 Rx Apixaban [Eliquis] 2.5 mg PO BID 08/20/24 09/18/24 History Buprenorphine [Butrans 15 MCG/HR] 1 patch TRANSDERM WEEKLY 08/20/24 09/18/24 History Loperamide HCl [Imodium A-D] 2 mg PO QID PRN 08/20/24 09/18/24 History Midodrine [ProAmatine] 5 mg PO TID 08/20/24 09/18/24 History Menthol [[place]] 7.5 mg MM DIRECTED PRN 09/18/24 09/18/24 History Allergies Allergy/AdvReac Type Severity Reaction Status Date / Time No Known Allergies Allergy Verified 09/18/24 07:50 Physical Exam Vitals: Vital Signs Temp Pulse Resp BP Pulse Ox 09/18/24 11:49 108 H 18 119/72 95 09/18/24 10:20 98.1 F 121 H 18 134/98 97 09/18/24 09:30 123 H 20 132/96 97 09/18/24 09:17 123 H 20 128/92 95 09/18/24 07:44 98.5 F 126 H 20 124/94 94 L Intake and Output 09/17/24 09/18/24 09/18/24 22:59 06:59 14:59 Intake Total 4.417 Balance 4.417 Intake: Intake, IV Titration 4.417 Amount Diltiazem 125 mg In 4.417 Dextrose 5% in Water 100 ml @ 5 MG/HR 5 mls/hr IV .Q24H [facility] Rx#:[id number] Other: Weight 74.843 kg Results CBC & Chem 7: 09/18/24 08:36 09/18/24 08:36 Labs: Abnormal Lab Results - Last 24 Hours (Table) 09/18/24 09/18/24 09/18/24 Range/Units 08:36 08:36 08:36 RBC 3.52 L (4.40-5.60) 10*6/uL Hgb 11.1 L (13.0-17.0) g/dL Hct 33.4 L (39.6-50.0) % BUN 50 H (9-20) mg/dL Creatinine 5.98 H (0.66-1.25) mg/dL Glucose 109 H (74-99) mg/dL AST 15 L (17-59) U/L RSV (PCR) Detected A (Not Detectd)
[2024-09-18] MEDS: AMIODARONE 200 MG TAB PO SCH (12:24)
[2024-09-18] MEDS: METOPROLOL TARTRATE 50 MG TAB PO SCH (12:24)
[2024-09-18] MEDS: GABAPENTIN 100 MG CAP PO SCH (16:20)
[2024-09-18] MEDS ORDERED: BENZONATATE 100 MG CAP PO PRN (18:18)
[2024-09-18] MEDS: MIDODRINE 5 MG TAB PO SCH (18:18)
[2024-09-18] MEDS: SODIUM BICARBONATE TAB 650 MG TAB PO SCH (20:46)
[2024-09-18] MEDS: APIXABAN 2.5 MG TABLET PO SCH (20:46)
[2024-09-18] MEDS: ATORVASTATIN 20 MG TAB PO SCH (20:47)
[2024-09-18] MEDS: TAMSULOSIN 0.4 MG CAP.ER.24H PO SCH (20:47)
[2024-09-18] MEDS: DILTIAZEM ORAL 60 MG TAB PO SCH (20:47)
[2024-09-18] MEDS: SYMBICORT 160-4.5 MCG INHALER INHALATION SCH (21:03)
[2024-09-18] MEDS: ALBUTEROL NEBULIZED 2.5 MG/3 ML INHALATION SCH (21:04)
[2024-09-19] MEDS: SEVELAMER 800 MG TAB PO SCH (06:42)
--- NOTE | 2024-09-19 09:55 | P.CRDCN ---
History of Present Illness History of present illness: HISTORY OF PRESENT ILLNESS: This is a 68-year-old male with a past medical history significant for atrial flutter, bradycardia, hypertension, hyperlipidemia, peripheral neuropathy, and end-stage renal disease on hemodialysis. Patient follows in the office with Dr. Blandon. We have been asked to see the patient in consultation for A-fib with RVR. Patient examined at the bedside. Patient states he was at hemodialysis when the staff noticed he was short of breath. Patient was also found to be mildly tachycardic. He was directed to come to the emergency room. Patient was found to be positive for RSV. Patient also reports that he had a sore throat and felt like he needed a cough drop. He does report having some mild shortness of breath yesterday. He denies any chest pain or pressure. He is currently undergoing hemodialysis at the time of examination. Telemetry reveals atrial flutter with a heart rate around [id number]. DIAGNOSTICS: - EKG reveals atrial flutter with 2-1 conduction. Heart rate 122. - Chest xray low lung volumes and generalized hazy appearance which could represent atelectasis versus pulmonary edema. - Laboratory data: WBC 9.90. Hemoglobin 11.1. Platelet count 185. Sodium 144. Potassium 4.9. BUN 50. Creatinine 5.98. Troponin negative x 1. proBNP 5640. - Current home cardiac medications include midodrine 5 mg 3 times daily, Eliquis 2.5 mg twice a day, Cardizem 60 mg 3 times daily, Lipitor 20 mg at night, aspirin 81 mg daily, amiodarone 200 mg daily. - Most recent echocardiogram obtained in 04/2024 revealing ejection fraction 50 to 55%, no obvious regional wall motion abnormalities, mild mitral regurgitation - Cardiac catheterization history: August [address] Dent revealing relatively normal coronary arteries with only mild luminary irregularities of the LAD 5 to 10% stenosis. Mildly elevated left-sided filling pressures. REVIEW OF SYSTEMS: At the time of my exam: CONSTITUTIONAL: Denies fever or chills. HEENT: Denies blurred vision, vision changes, or eye pain. Denies hemoptysis CARDIOVASCULAR: Denies chest pain. Denies orthopnea. Denies PND. Denies palpitations RESPIRATORY: Denies shortness of breath. GASTROINTESTINAL: Denies abdominal pain. Denies nausea or vomiting. HEMATOLOGIC: Denies bleeding disorders. GENITOURINARY: Denies any blood in urine. SKIN: Denies pruitis. Denies rash. PHYSICAL EXAM: VITAL SIGNS: Reviewed. GENERAL: Well-developed in no acute distress. HEENT: Head is normocephalic. Pupils are equal, round. Sclerae anicteric. Mucous membranes of the mouth are moist. Neck supple. No JVD or thyromegaly LUNGS: Respirations even and unlabored. Lungs diminished bilaterally HEART: Mildly tachycardic. Irregular rate and rhythm. S1 and S2 heard. ABDOMEN: Soft. Nondistended. Nontender. EXTREMITIES: Normal range of motion. No clubbing or cyanosis. Peripheral pulses intact. No lower extremity edema NEUROLOGIC: Awake and alert. Oriented x 3. ASSESSMENT: Acute RSV Paroxysmal typical atrial flutter with RVR End-stage renal disease on hemodialysis Hypertension Hyperlipidemia History of bradycardia History of peripheral neuropathy PLAN: Resume home cardiac medications Patient's heart rates this morning the time of examination are between [id number] Tachycardia likely secondary to acute RSV infection Patient with a history of bradycardia; thus we will continue with current cardiac medications at this time Anticipate improvement in patient's heart rate with resolution of acute RSV infection Continue telemetry monitoring Further recommendations pending patient course Nurse practitioner note has been reviewed by physician. Signing provider agrees with the documented findings, assessment, and plan of care documented by [employer] HAND[employer] as a scribe. Past Medical History Past Medical History: Atrial Fibrillation, Atrial Flutter, Dialysis, GERD/Reflux, Hyperlipidemia, Hypertension Additional Past Medical History / Comment(s): BPH, spinal arthritis, severe neuropathy of feet bilaterally, TBI History of Any Multi-Drug Resistant Organisms: None Reported Past Surgical History: Heart Catheterization, Hernia Repair Additional Past Surgical History / Comment(s): AV fistula placed Past Anesthesia/Blood Transfusion Reactions: No Reported Reaction Past Psychological History: No Psychological Hx Reported Smoking Status: Current every day smoker Past Alcohol Use History: None Reported Past Drug Use History: None Reported Medications and Allergies Home Medications Medication Instructions Recorded Confirmed Type Cyanocobalamin [Vitamin B-12] 500 mcg PO DAILY 07/24/23 09/18/24 History Omeprazole [PriLOSEC] 20 mg PO BID 07/24/23 09/18/24 History Patiromer Calcium Sorbitex 8.4 gm PO SUTUTHSA 07/24/23 09/18/24 History [Veltassa] Sodium Bicarbonate Tab 650 mg PO BID 07/24/23 09/18/24 History Tamsulosin [Flomax] 0.4 mg PO HS 07/24/23 09/18/24 History Acetaminophen [Tylenol Extra 1,000 mg PO TID PRN 03/26/24 09/18/24 History Strength] Albuterol Sulfate [Albuterol 1 puff INHALATION RT-QID PRN 03/26/24 09/18/24 History Sulfate Hfa] Diclofenac Sodium [Diclofenac 1 applic TOPICAL QID PRN 03/26/24 09/18/24 History Sodium 1%] Loratadine [Claritin] 10 mg PO DAILY 03/26/24 09/18/24 History Melatonin 3 mg PO HS PRN 03/26/24 09/18/24 History Menthol [Biofreeze] 1 applic TOPICAL BID PRN 03/26/24 09/18/24 History Sennosides [Senokot] 17.2 mg PO DAILY 03/26/24 09/18/24 History methocarbamoL [Robaxin] 500 mg PO BID PRN 03/26/24 09/18/24 History methocarbamoL [Robaxin] 500 mg PO HS 03/26/24 09/18/24 History Ipratropium-Albuterol Nebulize 3 ml INHALATION RT-BID PRN 04/06/24 09/18/24 History [Duoneb 0.5 mg-3 mg/3 ml Soln] Atorvastatin [Lipitor] 20 mg PO HS 30 Days #30 tab 04/10/24 09/18/24 Rx Nitroglycerin Sl Tabs [Nitrostat] 0.4 mg SL Q5M PRN 04/29/24 09/18/24 History Refresh Optive 0.5%-0.9% Eye Drops 1 - 2 drops BOTH EYES TID PRN 04/29/24 09/18/24 History Sevelamer [Renvela] 2,400 mg PO TID-W/MEALS 04/29/24 09/18/24 History Sevelamer [Renvela] 800 mg PO DAILY PRN 04/29/24 09/18/24 History Gabapentin [Neurontin] 100 mg PO TID #0 05/02/24 09/18/24 Rx Ammonium Lactate Lotion 1 applic TOPICAL DAILY 07/31/24 09/18/24 History [Lac-Hydrin 12% Lotion] Budesonide/Formoterol Fumarate 1 puff INHALATION RT-BID 07/31/24 09/18/24 History [Symbicort 160-4.5 Mcg Inhaler] Sodium Zirconium Cyclosilicate 10 gram PO DAILY 07/31/24 09/18/24 History [Lokelma] Amiodarone [Cordarone] 200 mg PO DAILY #30 tab 08/09/24 09/18/24 Rx Aspirin 81 mg PO DAILY #30 tab 08/09/24 09/18/24 Rx Diltiazem Oral [Cardizem*] 60 mg PO TID #90 tab 08/09/24 09/18/24 Rx Apixaban [Eliquis] 2.5 mg PO BID 08/20/24 09/18/24 History Buprenorphine [Butrans 15 MCG/HR] 1 patch TRANSDERM WEEKLY 08/20/24 09/18/24 History Loperamide HCl [Imodium A-D] 2 mg PO QID PRN 08/20/24 09/18/24 History Midodrine [ProAmatine] 5 mg PO TID 08/20/24 09/18/24 History Menthol [[place]] 7.5 mg MM DIRECTED PRN 09/18/24 09/18/24 History Allergies Allergy/AdvReac Type Severity Reaction Status Date / Time No Known Allergies Allergy Verified 09/18/24 07:50 Physical Exam Vitals: Vital Signs Temp Pulse Pulse Pulse Resp BP BP 09/19/24 08:11 116 H 09/19/24 08:02 09/19/24 08:01 117 H 09/19/24 04:00 89 14 117/72 09/19/24 01:39 107 H 107 H 09/19/24 00:00 77 15 96/63 09/18/24 21:17 104 H 09/18/24 21:04 105 H 09/18/24 20:00 107 H 107 H 14 127/79 09/18/24 17:59 97.7 F 108 H 14 129/84 09/18/24 17:14 92 18 105/84 09/18/24 16:21 111 H 18 103/73 09/18/24 14:45 80 18 97/57 09/18/24 14:05 96 16 115/85 09/18/24 12:26 124 H 16 124/91 09/18/24 11:49 108 H 18 119/72 09/18/24 10:20 98.1 F 121 H 18 134/98 Pulse Ox 09/19/24 08:11 09/19/24 08:02 93 L 09/19/24 08:01 09/19/24 04:00 96 09/19/24 01:39 09/19/24 00:00 96 09/18/24 21:17 09/18/24 21:04 09/18/24 20:00 97 09/18/24 17:59 96 09/18/24 17:14 96 09/18/24 16:21 95 09/18/24 14:45 94 L 09/18/24 14:05 94 L 09/18/24 12:26 97 09/18/24 11:49 95 09/18/24 10:20 97 Intake and Output 09/18/24 09/19/24 09/19/24 22:59 06:59 14:59 Intake Total 236 Balance 236 Intake: Oral 236 Other: # Voids 2 Weight 77.5 kg Results 09/18/24 08:36 09/18/24 08:36 Current Medications Generic Name Dose Route Start Last Admin Trade Name Freq PRN Reason Stop Dose Admin Acetaminophen 650 mg 09/18/24 10:16 Acetaminophen Tab 325 Mg Tab PO Q6HR PRN Mild Pain or Fever > 100.5 Albuterol Sulfate 2.5 mg 09/18/24 20:00 09/19/24 08:00 Albuterol Nebulized 2.5 Mg/3 Ml INHALATION 2.5 mg RT-QID ASMITA Administration Albuterol/Ipratropium 3 ml 09/18/24 11:36 Ipratropium-Albuterol 3 Ml Neb INHALATION RT-BID PRN Shortness Of Breath Amiodarone HCl 200 mg 09/18/24 11:45 09/18/24 12:24 Amiodarone 200 Mg Tab PO 200 mg DAILY ASMITA Administration Apixaban 2.5 mg 09/18/24 21:00 09/18/24 20:46 Apixaban 2.5 Mg Tablet PO 2.5 mg BID ASMITA Administration Protocol Aspirin 81 mg 09/19/24 09:00 Aspirin 81 Mg PO DAILY [facility] Atorvastatin Calcium 20 mg 09/18/24 21:00 09/18/24 20:47 Atorvastatin 20 Mg Tab PO 20 mg HS ASMITA Administration Benzonatate 200 mg 09/18/24 18:18 Benzonatate 100 Mg Cap PO TID PRN Cough Budesonide/Formoterol Fumarate 1 puff 09/18/24 20:00 09/19/24 08:00 Symbicort 160-4.5 Mcg Inhaler INHALATION 1 puff RT-BID ASMITA Administration Cyanocobalamin 500 mcg 09/19/24 09:00 Cyanocobalamin 500 Mcg Tab PO DAILY ASMITA Diltiazem HCl 60 mg 09/18/24 22:00 09/18/24 20:47 Diltiazem Oral 60 Mg Tab PO 60 mg TID ASMITA Administration Gabapentin 100 mg 09/18/24 16:00 09/18/24 20:46 Gabapentin 100 Mg Cap PO 100 mg TID [facility] Administration Loratadine 10 mg 09/19/24 09:00 Loratadine 10 Mg Tab PO DAILY [facility] Melatonin 3 mg 09/18/24 11:36 Melatonin 3 Mg Tablet PO HS PRN Insomnia Metoprolol Tartrate 50 mg 09/18/24 12:00 09/18/24 20:47 Metoprolol Tartrate 50 Mg Tab PO 50 mg TID [facility] Administration Midodrine 5 mg 09/18/24 17:30 09/19/24 06:42 Midodrine 5 Mg Tab PO 5 mg TID-W/MEALS [facility] Administration Naloxone HCl 0.2 mg 09/18/24 10:16 Naloxone 0.4 Mg/Ml 1 Ml Vial IV Q2M PRN Opioid Reversal Buprenorphine [ 1 each 09/25/24 09:00 Butrans 15 Mcg/Hr] TRANSDERM 15 Mcg/Hour Patch WEEKLY ASMITA Sevelamer Carbonate 800 mg 09/18/24 11:36 Sevelamer 800 Mg Tab PO DAILY PRN snacks Sevelamer Carbonate 2,400 mg 09/19/24 07:30 09/19/24 06:42 Sevelamer 800 Mg Tab PO 2,400 mg TID-W/MEALS [facility] Administration Sodium Bicarbonate 650 mg 09/18/24 21:00 09/18/24 20:46 Sodium Bicarbonate Tab 650 Mg Tab PO 650 mg BID ASMITA Administration Sodium Zirconium Cyclosilicate 10 gm 09/19/24 09:00 Sodium Zirconium Cyclosilicate 10 Gm Packet PO DAILY [facility] Tamsulosin HCl 0.4 mg 09/18/24 21:00 09/18/24 20:47 Tamsulosin 0.4 Mg Cap.Er.24h PO 0.4 mg HS ASMITA Administration Intake and Output 09/18/24 09/19/24 09/19/24 22:59 06:59 14:59 Intake Total 236 Balance 236 Intake: Oral 236 Other: # Voids 2 Weight 77.5 kg 09/18/24 08:36 09/18/24 08:36
[2024-09-19] MEDS: LORATADINE 10 MG TAB PO SCH (10:17)
[2024-09-19] MEDS: CYANOCOBALAMIN 500 MCG TAB PO SCH (10:17)
[2024-09-19] MEDS: ASPIRIN 81 MG PO SCH (10:17)
--- NOTE | 2024-09-19 12:23 | P.NPCON ---
History of Present Illness - Reason for Consult end stage renal disease - History of Present Illness Patient is a 68-year-old male with end-stage renal disease on hemodialysis on Monday schedule. He is admitted to the hospital with history of palpitations. He also complained of headache and cough along with nasal congestion. Patient tested positive for RSV. He is noted to be in A-fib with RVR. Heart rate in the 120s. No history of fever chills nausea vomiting or abdominal pain. Status post Cardizem drip, now maintained on oral Cardizem. Past Medical History Past Medical History: Atrial Fibrillation, Atrial Flutter, Dialysis, GERD/Reflux, Hyperlipidemia, Hypertension Additional Past Medical History / Comment(s): BPH, spinal arthritis, severe neuropathy of feet bilaterally, TBI History of Any Multi-Drug Resistant Organisms: None Reported Past Surgical History: Heart Catheterization, Hernia Repair Additional Past Surgical History / Comment(s): AV fistula placed Past Anesthesia/Blood Transfusion Reactions: No Reported Reaction Past Psychological History: No Psychological Hx Reported Smoking Status: Current every day smoker Past Alcohol Use History: None Reported Past Drug Use History: None Reported Medications and Allergies Home Medications Medication Instructions Recorded Confirmed Type Cyanocobalamin [Vitamin B-12] 500 mcg PO DAILY 07/24/23 09/18/24 History Omeprazole [PriLOSEC] 20 mg PO BID 07/24/23 09/18/24 History Patiromer Calcium Sorbitex 8.4 gm PO SUTUTHSA 07/24/23 09/18/24 History [Veltassa] Sodium Bicarbonate Tab 650 mg PO BID 07/24/23 09/18/24 History Tamsulosin [Flomax] 0.4 mg PO HS 07/24/23 09/18/24 History Acetaminophen [Tylenol Extra 1,000 mg PO TID PRN 03/26/24 09/18/24 History Strength] Albuterol Sulfate [Albuterol 1 puff INHALATION RT-QID PRN 03/26/24 09/18/24 History Sulfate Hfa] Diclofenac Sodium [Diclofenac 1 applic TOPICAL QID PRN 03/26/24 09/18/24 History Sodium 1%] Loratadine [Claritin] 10 mg PO DAILY 03/26/24 09/18/24 History Melatonin 3 mg PO HS PRN 03/26/24 09/18/24 History Menthol [Biofreeze] 1 applic TOPICAL BID PRN 03/26/24 09/18/24 History Sennosides [Senokot] 17.2 mg PO DAILY 03/26/24 09/18/24 History methocarbamoL [Robaxin] 500 mg PO BID PRN 03/26/24 09/18/24 History methocarbamoL [Robaxin] 500 mg PO HS 03/26/24 09/18/24 History Ipratropium-Albuterol Nebulize 3 ml INHALATION RT-BID PRN 04/06/24 09/18/24 History [Duoneb 0.5 mg-3 mg/3 ml Soln] Atorvastatin [Lipitor] 20 mg PO HS 30 Days #30 tab 04/10/24 09/18/24 Rx Nitroglycerin Sl Tabs [Nitrostat] 0.4 mg SL Q5M PRN 04/29/24 09/18/24 History Refresh Optive 0.5%-0.9% Eye Drops 1 - 2 drops BOTH EYES TID PRN 04/29/24 09/18/24 History Sevelamer [Renvela] 2,400 mg PO TID-W/MEALS 04/29/24 09/18/24 History Sevelamer [Renvela] 800 mg PO DAILY PRN 04/29/24 09/18/24 History Gabapentin [Neurontin] 100 mg PO TID #0 05/02/24 09/18/24 Rx Ammonium Lactate Lotion 1 applic TOPICAL DAILY 07/31/24 09/18/24 History [Lac-Hydrin 12% Lotion] Budesonide/Formoterol Fumarate 1 puff INHALATION RT-BID 07/31/24 09/18/24 History [Symbicort 160-4.5 Mcg Inhaler] Sodium Zirconium Cyclosilicate 10 gram PO DAILY 07/31/24 09/18/24 History [Lokelma] Amiodarone [Cordarone] 200 mg PO DAILY #30 tab 08/09/24 09/18/24 Rx Aspirin 81 mg PO DAILY #30 tab 08/09/24 09/18/24 Rx Diltiazem Oral [Cardizem*] 60 mg PO TID #90 tab 08/09/24 09/18/24 Rx Apixaban [Eliquis] 2.5 mg PO BID 08/20/24 09/18/24 History Buprenorphine [Butrans 15 MCG/HR] 1 patch TRANSDERM WEEKLY 08/20/24 09/18/24 History Loperamide HCl [Imodium A-D] 2 mg PO QID PRN 08/20/24 09/18/24 History Midodrine [ProAmatine] 5 mg PO TID 08/20/24 09/18/24 History Menthol [[place]] 7.5 mg MM DIRECTED PRN 09/18/24 09/18/24 History Allergies Allergy/AdvReac Type Severity Reaction Status Date / Time No Known Allergies Allergy Verified 09/18/24 07:50 Physical Exam Vitals: Vital Signs Temp Pulse Pulse Pulse Resp BP BP 09/19/24 11:42 92 09/19/24 11:33 88 14 119/85 09/19/24 11:32 88 09/19/24 08:11 116 H 09/19/24 08:02 09/19/24 08:01 117 H 09/19/24 08:00 98.2 F 116 H 14 124/80 09/19/24 04:00 89 14 117/72 09/19/24 01:39 107 H 107 H 09/19/24 00:00 77 15 96/63 09/18/24 21:17 104 H 09/18/24 21:04 105 H 09/18/24 20:00 107 H 107 H 14 127/79 09/18/24 17:59 97.7 F 108 H 14 129/84 09/18/24 17:14 92 18 105/84 09/18/24 16:21 111 H 18 103/73 09/18/24 14:45 80 18 97/57 09/18/24 14:05 96 16 115/85 09/18/24 12:26 124 H 16 124/91 Pulse Ox 09/19/24 11:42 09/19/24 11:33 97 09/19/24 11:32 09/19/24 08:11 09/19/24 08:02 93 L 09/19/24 08:01 09/19/24 08:00 91 L 09/19/24 04:00 96 09/19/24 01:39 09/19/24 00:00 96 09/18/24 21:17 09/18/24 21:04 09/18/24 20:00 97 09/18/24 17:59 96 09/18/24 17:14 96 09/18/24 16:21 95 09/18/24 14:45 94 L 09/18/24 14:05 94 L 09/18/24 12:26 97 Intake and Output 09/18/24 09/19/24 09/19/24 22:59 06:59 14:59 Intake Total 236 Balance 236 Intake: Oral 236 Other: # Voids 2 Weight 77.5 kg Patient is awake, comfortable, no acute distress Examination of the heart S1 and S2 Examination of the lungs bilateral breath sounds are heard Abdomen is soft nontender Examination of lower extremities shows no evidence of edema 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 End-stage renal disease on hemodialysis on Monday schedule 2. A-fib with RVR status post Cardizem drip 3. 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 History of chronic hyperkalemia maintained on daily Lokelma. Potassium is 4.9 5. RSV infection, O2 sats 97% on room air Plan: Hemodialysis today no, no significant UF Continue with phosphate binders May continue with Lokelma Thank you for the consultation. We will continue to follow the patient with you during his hospitalization.
--- NOTE | 2024-09-19 14:41 | P.PN ---
Subjective Progress Note Date: 09/19/24 68-year-old male with a past medical history of CAD, paroxysmal atrial fibrillation on anticoagulation with Eliquis, hypertension, hyperlipidemia, ESRD on dialysis( Monday/Monday/Monday), BPH, severe neuropathy of bilateral lower extremities, and nicotine dependence. He presented to our facility from dialysis center secondary to A-fib RVR. Patient reports he has been experiencing symptoms of an upper respiratory infection including headache, productive cough, congestion, and sore throat x 1 week. Upon arrival to our facility, patient underwent evaluation in the emergency department. Vital signs upon arrival show blood pressure 124/94, heart rate 126, respiratory rate 20, temp 98.5 F, and SpO2 of 94% on room air. EKG was completed fibrillation with a rapid ventricular rate at 113 bpm. Chest x-ray completed showing low lung volumes with generalized haziness. Labs completed and reviewed. CBC showing normocytic anemia with hemoglobin of 11.1. Coagulation profile normal findings. BMP consistent with known ESRD with BUN of 50, creatinine of 5.98, GFR of 9. Blood glucose 109. Magnesium 1.9. Liver profile showing no significant abnormalities. Troponin was negative at less than 0.012 and proBNP was 5640. Influenza A influenza B and COVID PCR were negative. RSV was positive. Patient is admitted for further workup and management. Started on Cardizem drip for a short period of time which was discontinued. 09/19 Patient was seen and examined. HR in the 90s on telemetry. Undergoing HD today. No new labs done today. General: non toxic, no distress, appears at stated age Derm: warm, dry Head: atraumatic, normocephalic, symmetric Mouth: no lip lesion, mucus membranes moist Cardiovascular: S1S2 irreg, no murmur Lungs: Decreased BS bilaterally, no rales , no accessory muscle use Ext: no gross muscle atrophy, no edema, no contractures Neuro: no focal neuro deficits Psych: Alert and oriented. Based on my assessment of this patient, this patient meets a high complexity level of care. Atrial fibrillation with RVR: Amiodarone 200 mg PO QD. Metoprolol 50 mg PO TID. Cardizem 60 mg PO TID. Eliquis 2.5 mg PO BID. Telemetry monitoring. Cardiology recs appreciated. RSV: Symptomatic management. DuoNeb BID PRN and Albuterol neb QID scheduled. Tessalon 200 mg PO TID PRN cough. Symbicort 1 INH BID. ESRD on hemodialysis Monday/Monday/Monday: Nephrology on board to resume HD. Hypertension: Metoprolol and Cardizem as above. Hyperlipidemia: Lipitor 20 mg PO QHS. Resolved: HyperK CODE STATUS: FULL CODE. DVT Prophylaxis: Eliquis. GI Prophylaxis: Designated medical POA if patient is not able to make medical decisions for themselves: Sister. I have reviewed the following engagement quality consultant notes: Cardio, Nephro note. I have reviewed the results of the following tests: I have ordered the following tests: BMP and Mag in the AM. I have discussed the care of this patient with the following independent historian: RN. I have independently interpreted the following test below: I have discussed the management of this patient with the following physician: Objective - Vital Signs Vital signs: Vital Signs Temp 98.2 F 09/19/24 12:57 Pulse 92 09/19/24 11:42 Resp 16 09/19/24 12:57 BP 147/92 09/19/24 12:57 Pulse Ox 97 09/19/24 11:33 FiO2 Intake & Output 09/18/24 09/19/24 09/19/24 18:59 06:59 18:59 Intake Total 48.250 1754 Output Total 1500 Balance 48.250 254 Weight 74.843 kg 77.5 kg Intake: Intake, IV Titration 48.250 Amount Diltiazem 125 mg In 48.250 Dextrose 5% in Water 100 ml @ 5 MG/HR 5 mls/hr IV .Q24H [facility] Rx#:[id number] Oral 354 Hemodialysis 1400 Output: Urine 100 Hemodialysis 400 Hemodialysis Net Amount 1000 Other: # Voids 2 1 - Labs CBC & Chem 7: 09/18/24 08:36 09/18/24 08:36
[2024-09-19] MEDS: SODIUM ZIRCONIUM CYCLOSILICATE 10 GM PACKET PO SCH (15:49)
[2024-09-20 07:44] LABS: HCT 35.5 % (39.6-50.0); HGB 11.6 g/dL (13.0-17.0); MCH 31.1 pg (27.0-32.0); MCHC 32.7 g/dL (32.0-37.0); MCV 95.2 fL (80.0-97.0); Mean Platelet Volume 9.7 fL (9.5-12.2); Platelet Count 179 10*3/uL (140-440); RBC 3.73 10*6/uL (4.40-5.60); RDW 13.9 % (11.5-14.5); WBC 8.72 10*3/uL (4.50-10.00)
[2024-09-20 07:58] LABS: African American GFR (CKD) 11 (>60 ml/min/1.73 sqM); Anion Gap 12 mmol/L; Blood Urea Nitrogen 45 mg/dL (9-20); Calcium 9.8 mg/dL (8.4-10.2); Carbon Dioxide 29 mmol/L (22-30); Chloride 99 mmol/L (98-107); Glucose 123 mg/dL (74-99); Non-African American GFR(CKD) 10 (>60 ml/min/1.73 sqM); Potassium 4.6 mmol/L (3.5-5.1); Sodium 140 mmol/L (137-145)
--- NOTE | 2024-09-20 10:13 | P.PN ---
Subjective HISTORY OF PRESENT ILLNESS: This is a 68-year-old male with a past medical history significant for atrial flutter, bradycardia, hypertension, hyperlipidemia, peripheral neuropathy, and end-stage renal disease on hemodialysis. Patient follows in the office with Dr. Blandon. We have been asked to see the patient in consultation for A-fib with RVR. Patient examined at the bedside. Patient states he was at hemodialysis when the staff noticed he was short of breath. Patient was also found to be mildly tachycardic. He was directed to come to the emergency room. Patient was found to be positive for RSV. Patient also reports that he had a sore throat and felt like he needed a cough drop. He does report having some mild shortness of breath yesterday. He denies any chest pain or pressure. He is currently undergoing hemodialysis at the time of examination. Telemetry reveals atrial flutter with a heart rate around [id number]. DIAGNOSTICS: - EKG reveals atrial flutter with 2-1 conduction. Heart rate 122. - Chest xray low lung volumes and generalized hazy appearance which could represent atelectasis versus pulmonary edema. - Laboratory data: WBC 9.90. Hemoglobin 11.1. Platelet count 185. Sodium 144. Potassium 4.9. BUN 50. Creatinine 5.98. Troponin negative x 1. proBNP 5640. - Current home cardiac medications include midodrine 5 mg 3 times daily, Eliquis 2.5 mg twice a day, Cardizem 60 mg 3 times daily, Lipitor 20 mg at night, aspirin 81 mg daily, amiodarone 200 mg daily. - Most recent echocardiogram obtained in 04/2024 revealing ejection fraction 50 to 55%, no obvious regional wall motion abnormalities, mild mitral regurgitation - Cardiac catheterization history: August [address] Dent revealing relatively normal coronary arteries with only mild luminary irregularities of the LAD 5 to 10% stenosis. Mildly elevated left-sided filling pressures. 09/20/2024 Patient examined this morning at bedside. Patient currently denies chest pain or pressure. He denies shortness of breath. He underwent hemodialysis ye sterday. Vital signs are stable. Telemetry reveals atrial flutter with heart rates between [id number]. PHYSICAL EXAM: VITAL SIGNS: Reviewed. GENERAL: Well-developed in no acute distress. HEENT: Head is normocephalic. Pupils are equal, round. Sclerae anicteric. Mucous membranes of the mouth are moist. Neck supple. No JVD or thyromegaly LUNGS: Respirations even and unlabored. Lungs diminished bilaterally HEART: Mildly tachycardic. Irregular rate and rhythm. S1 and S2 heard. ABDOMEN: Soft. Nondistended. Nontender. EXTREMITIES: Normal range of motion. No clubbing or cyanosis. Peripheral puls es intact. No lower extremity edema NEUROLOGIC: Awake and alert. Oriented x 3. ASSESSMENT: Acute RSV Paroxysmal typical atrial flutter with RVR End-stage renal disease on hemodialysis Hypertension Hyperlipidemia History of bradycardia History of peripheral neuropathy PLAN: Continue current cardiac medications Patient's heart rates this morning the time of examination are between 100-110 Tachycardia likely secondary to acute RSV infection Patient with a history of bradycardia; thus we will continue with current cardiac medications at this time Anticipate improvement in patient's heart rate with resolution of acute RSV infection Continue telemetry monitoring Patient is currently stable from a cardiac standpoint with no further inpatient recommendations We will sign off. Please reconsult if needed. Nurse practitioner note has been reviewed by physician. Signing provider agrees with the documented findings, assessment, and plan of care documented by BUILDING ARCHITECTURAL DESIGNER as a scribe. Objective - Vital Signs Vital signs: Vital Signs Temp 97.9 F 09/19/24 19:36 Pulse 56 L 09/20/24 08:16 Resp 16 09/20/24 04:00 BP 105/63 09/20/24 04:00 Pulse Ox 98 09/20/24 08:06 FiO2 Intake & Output 09/19/24 09/20/24 09/20/24 18:59 06:59 18:59 Intake Total 1990 480 Output Total 1500 150 Balance 490 330 Intake: Oral 590 480 Hemodialysis 1400 Output: Urine 100 150 Hemodialysis 400 Hemodialysis Net Amount 1000 Other: Voiding Method Urinal Urinal # Voids 1 - Labs CBC & Chem 7: 09/20/24 07:27 09/20/24 07:27 Labs: Abnormal Lab Results - Last 24 Hours (Table) 09/20/24 09/20/24 Range/Units 07:27 07:27 RBC 3.73 L (4.40-5.60) 10*6/uL Hgb 11.6 L (13.0-17.0) g/dL Hct 35.5 L (39.6-50.0) % BUN 45 H (9-20) mg/dL Creatinine 5.59 H (0.66-1.25) mg/dL Glucose 123 H (74-99) mg/dL
[2024-09-20 10:24] VITALS: RESP 18
--- NOTE | 2024-09-20 10:32 | P.DS ---
Providers Date of admission: 09/18/24 09:58 Expected date of discharge: 09/20/24 Attending physician: Olga Hand MD Consults: 09/18/24 10:16 Consult Physician Urgent Consulting Provider: Sheridan Santana Consult Reason/Comments: Dialysis Do you want consulting provider notified?: Yes Primary care physician: Stated None Hospital Course: 68-year-old male with a past medical history of CAD, paroxysmal atrial fibrillation on anticoagulation with Eliquis, hypertension, hyperlipidemia, ESRD on dialysis( Monday/Monday/Monday), BPH, severe neuropathy of bilateral lower extremities, and nicotine dependence. He presented to our facility from dialysis center secondary to A-fib RVR. Patient reports he has been experiencing symptoms of an upper respiratory infection including headache, productive cough, congestion, and sore throat x 1 week. Upon arrival to our facility, patient underwent evaluation in the emergency department. Vital signs upon arrival show blood pressure 124/94, heart rate 126, respiratory rate 20, temp 98.5 F, and SpO2 of 94% on room air. EKG was completed fibrillation with a rapid ventricular rate at 113 bpm. Chest x-ray completed showing low lung volumes with generalized haziness. Labs completed and reviewed. CBC showing normocytic anemia with hemoglobin of 11.1. Coagulation profile normal findings. BMP consistent with known ESRD with BUN of 50, creatinine of 5.98, GFR of 9. Blood glucose 109. Magnesium 1.9. Liver profile showing no significant abnormalities. Troponin was negative at less than 0.012 and proBNP was 5640. Influenza A influenza B and COVID PCR were negative. RSV was positive. Patient is admitted for further workup and management. Started on Cardizem drip for a short period of time which was discontinued. Cardiology consulted, Metoprolol added. 09/20 Patient was seen and examined. HR in the low 100s on telemetry. Undergoing HD today. Cardiology has signed off. CBC and BMP significant for RBC 3.73, Hg 11.6, Hct 35.5, BUN 45, Cr 5.59, glu 123. Mag 2. Discharge Plan: Resume home medications on discharge. Metoprolol prescribed to pharmacy. Resume hemodialysis on MWF schedule. Follow up with PCP within 1-[address] Steinberg within 1 week of discharge. General: non toxic, no distress, appears at stated age Derm: warm, dry Head: atraumatic, normocephalic, symmetric Mouth: no lip lesion, mucus membranes moist Cardiovascular: S1S2 irreg, no murmur Lungs: Decreased BS bilaterally, no rales , no accessory muscle use Ext: no gross muscle atrophy, no edema, no contractures Neuro: no focal neuro deficits Psych: Alert and oriented. 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 Patient Condition at Discharge: Stable Plan - Discharge Summary New Discharge Prescriptions: New Metoprolol Tartrate [Lopressor] 50 mg PO TID #90 tab Continue Cyanocobalamin [Vitamin B-12] 500 mcg PO DAILY Tamsulosin [Flomax] 0.4 mg PO HS Menthol [Biofreeze] 1 applic TOPICAL BID PRN PRN Reason: Pain Acetaminophen [Tylenol Extra Strength] 1,000 mg PO TID PRN PRN Reason: Pain Sennosides [Senokot] 17.2 mg PO DAILY methocarbamoL [Robaxin] 500 mg PO HS Diclofenac Sodium [Diclofenac Sodium 1%] 1 applic TOPICAL QID PRN PRN Reason: Pain methocarbamoL [Robaxin] 500 mg PO BID PRN PRN Reason: Pain Melatonin 3 mg PO HS PRN PRN Reason: Insomnia Sevelamer [Renvela] 800 mg PO DAILY PRN PRN Reason: snacks Sevelamer [Renvela] 2,400 mg PO TID-W/MEALS Nitroglycerin Sl Tabs [Nitrostat] 0.4 mg SL Q5M PRN PRN Reason: Chest Pain Refresh Optive 0.5%-0.9% Eye Drops 1 - 2 drops BOTH EYES TID PRN PRN Reason: Dry Eye(S) Budesonide/Formoterol Fumarate [Symbicort 160-4.5 Mcg Inhaler] 1 puff INHALATION RT-BID Sodium Zirconium Cyclosilicate [Lokelma] 10 gram PO DAILY Aspirin 81 mg PO DAILY #30 tab Diltiazem Oral [Cardizem*] 60 mg PO TID #90 tab Amiodarone [Cordarone] 200 mg PO DAILY #30 tab Buprenorphine [Butrans 15 MCG/HR] 1 patch TRANSDERM WEEKLY Apixaban [Eliquis] 2.5 mg PO BID Sodium Bicarbonate Tab 650 mg PO BID Patiromer Calcium Sorbitex [Veltassa] 8.4 gm PO SUTUTHSA Omeprazole [PriLOSEC] 20 mg PO BID Albuterol Sulfate [Albuterol Sulfate Hfa] 1 puff INHALATION RT-QID PRN PRN Reason: Wheezing Loratadine [Claritin] 10 mg PO DAILY Ipratropium-Albuterol Nebulize [Duoneb 0.5 mg-3 mg/3 ml Soln] 3 ml INHALATION RT-BID PRN PRN Reason: Shortness Of Breath Atorvastatin [Lipitor] 20 mg PO HS 30 Days #30 tab Gabapentin [Neurontin] 100 mg PO TID #0 Ammonium Lactate Lotion [Lac-Hydrin 12% Lotion] 1 applic TOPICAL DAILY Loperamide HCl [Imodium A-D] 2 mg PO QID PRN PRN Reason: Diarrhea Midodrine [ProAmatine] 5 mg PO TID Menthol [Chugwater] 7.5 mg MM DIRECTED PRN PRN Reason: Sore Throat Discharge Medication List Cyanocobalamin [Vitamin B-12] 500 mcg PO DAILY 07/24/23 [History] Omeprazole [PriLOSEC] 20 mg PO BID 07/24/23 [History] Patiromer Calcium Sorbitex [Veltassa] 8.4 gm PO SUTUTHSA 07/24/23 [History] Sodium Bicarbonate Tab 650 mg PO BID 07/24/23 [History] Tamsulosin [Flomax] 0.4 mg PO HS 07/24/23 [History] Acetaminophen [Tylenol Extra Strength] 1,000 mg PO TID PRN 03/26/24 [History] Albuterol Sulfate [Albuterol Sulfate Hfa] 1 puff INHALATION RT-QID PRN 03/26/24 [History] Diclofenac Sodium [Diclofenac Sodium 1%] 1 applic TOPICAL QID PRN 03/26/24 [History] Loratadine [Claritin] 10 mg PO DAILY 03/26/24 [History] Melatonin 3 mg PO HS PRN 03/26/24 [History] Menthol [Biofreeze] 1 applic TOPICAL BID PRN 03/26/24 [History] Sennosides [Senokot] 17.2 mg PO DAILY 03/26/24 [History] methocarbamoL [Robaxin] 500 mg PO BID PRN 03/26/24 [History] methocarbamoL [Robaxin] 500 mg PO HS 03/26/24 [History] Ipratropium-Albuterol Nebulize [Duoneb 0.5 mg-3 mg/3 ml Soln] 3 ml INHALATION RT-BID PRN 04/06/24 [History] Atorvastatin [Lipitor] 20 mg PO HS 30 Days #30 tab 04/10/24 [Rx] Nitroglycerin Sl Tabs [Nitrostat] 0.4 mg SL Q5M PRN 04/29/24 [History] Refresh Optive 0.5%-0.9% Eye Drops 1 - 2 drops BOTH EYES TID PRN 04/29/24 [History] Sevelamer [Renvela] 2,400 mg PO TID-W/MEALS 04/29/24 [History] Sevelamer [Renvela] 800 mg PO DAILY PRN 04/29/24 [History] Gabapentin [Neurontin] 100 mg PO TID #0 05/02/24 [Rx] Ammonium Lactate Lotion [Lac-Hydrin 12% Lotion] 1 applic TOPICAL DAILY 07/31/24 [History] Budesonide/Formoterol Fumarate [Symbicort 160-4.5 Mcg Inhaler] 1 puff INHALATION RT-BID 07/31/24 [History] Sodium Zirconium Cyclosilicate [Lokelma] 10 gram PO DAILY 07/31/24 [History] Amiodarone [Cordarone] 200 mg PO DAILY #30 tab 08/09/24 [Rx] Aspirin 81 mg PO DAILY #30 tab 08/09/24 [Rx] Diltiazem Oral [Cardizem*] 60 mg PO TID #90 tab 08/09/24 [Rx] Apixaban [Eliquis] 2.5 mg PO BID 08/20/24 [History] Buprenorphine [Butrans 15 MCG/HR] 1 patch TRANSDERM WEEKLY 08/20/24 [History] Loperamide HCl [Imodium A-D] 2 mg PO QID PRN 08/20/24 [History] Midodrine [ProAmatine] 5 mg PO TID 08/20/24 [History] Menthol [Chugwater] 7.5 mg MM DIRECTED PRN 09/18/24 [History] Metoprolol Tartrate [Lopressor] 50 mg PO TID #90 tab 09/20/24 [Rx] Follow up Appointment(s)/Referral(s): Matthew Espino MD [REFERRING] - 1-2 Days Jf Steinberg MD [Medical Doctor] - 1 Week Activity/Diet/Wound Care/Special Instructions: Diet: Renal Resume hemodialysis on MWF schedule. Symptomatic treatment of RSV. Discharge Disposition: HOME SELF-CARE
[2024-09-20 14:44] VITALS: BP 128/73; PULSE 101; TEMP 97.8
== END 2024-09-20 14:18 | disposition home or self-care (01) ==
LOC: EC 07:42 → 3SCARD 09:58
PROVIDERS: ADMIT Family Medicine; ATTEND Family Medicine
DX: I48.3 Typical atrial flutter (principal); J06.9 Acute upper respiratory infection, unspecified; B97.4 Respiratory syncytial virus as the cause of diseases classified elsewhere; E87.5 Hyperkalemia; I12.0 Hypertensive chronic kidney disease with stage 5 chronic kidney disease or end stage renal disease; N18.6 End stage renal disease; I48.0 Paroxysmal atrial fibrillation; I25.10 Atherosclerotic heart disease of native coronary artery without angina pectoris; N40.0 Benign prostatic hyperplasia without lower urinary tract symptoms; E78.5 Hyperlipidemia, unspecified; G62.9 Polyneuropathy, unspecified; R00.1 Bradycardia, unspecified; M89.8X9 Other specified disorders of bone, unspecified site; D63.1 Anemia in chronic kidney disease; Z99.2 Dependence on renal dialysis; F17.200 Nicotine dependence, unspecified, uncomplicated; Z79.51 Long term (current) use of inhaled steroids; Z79.01 Long term (current) use of anticoagulants; Z79.82 Long term (current) use of aspirin; Z79.899 Other long term (current) drug therapy; Z11.52 Encounter for screening for COVID-19; Z11.59 Encounter for screening for other viral diseases; Z91.158 Patient's noncompliance with renal dialysis for other reason
CPT/HCPCS: 90935 ×2; 96366 ×2; 96376; 96365; 99291; 36415; 94640 ×6; 94760 ×2; 93005; 83880; 80053; 80048; 83735 ×2; 84484; 85025; 85027; 85610; 85730; 87636; 71046; G0378 ×3

== ENCOUNTER 2024-09-21 09:13 | Emergency (ER) | payer OTHER ==
--- NOTE | 2024-09-21 09:22 | ED ---
General Adult HPI - General Chief complaint: Nausea/Vomiting/Diarrhea Stated complaint: nausea Time Seen by Provider: 09/21/24 09:15 Source: patient, EMS, RN notes reviewed, old records reviewed Mode of arrival: EMS Limitations: no limitations - History of Present Illness Initial comments: This is a 68-year-old male with a past medical history significant for atrial fibrillation high blood pressure and high cholesterol and is a dialysis patient. Patient does not know why he is on dialysis other than his kidneys to fail. Does not know the cause. Patient comes in today because he complained about being nauseous to the staff and they took her blood pressure and it was low so they called EMS. According to EMS they arrived he had bounding pulses his blood pressure has been normal the whole way in and the patient is not dizzy or lightheaded. Patient is not complaining of any chest pain difficulty breathing or shortness of breath. Patient denies any back pain. Patient states that he is nauseous but not vomiting. Patient states he has a mild headache but he has a history of migraines. Patient did not take his morning meds and he did not take anything for the headache - Related Data Home Medications Medication Instructions Recorded Confirmed Cyanocobalamin [Vitamin B-12] 500 mcg PO DAILY 07/24/23 09/21/24 Omeprazole [PriLOSEC] 20 mg PO BID 07/24/23 09/21/24 Patiromer Calcium Sorbitex 8.4 gm PO SUTUTHSA 07/24/23 09/21/24 [Veltassa] Sodium Bicarbonate Tab 650 mg PO BID 07/24/23 09/21/24 Tamsulosin [Flomax] 0.4 mg PO HS 07/24/23 09/21/24 Acetaminophen [Tylenol Extra 1,000 mg PO TID PRN MDD 4000 mg 03/26/24 09/21/24 Strength] Albuterol Sulfate [Albuterol 1 puff INHALATION RT-QID PRN 03/26/24 09/21/24 Sulfate Hfa] Diclofenac Sodium [Diclofenac 1 applic TOPICAL QID PRN 03/26/24 09/21/24 Sodium 1%] Loratadine [Claritin] 10 mg PO DAILY 03/26/24 09/21/24 Melatonin 3 mg PO HS PRN 03/26/24 09/21/24 Menthol [Biofreeze] 1 applic TOPICAL BID PRN 03/26/24 09/21/24 Sennosides [Senokot] 17.2 mg PO DAILY 03/26/24 09/21/24 methocarbamoL [Robaxin] 500 mg PO BID PRN 03/26/24 09/21/24 methocarbamoL [Robaxin] 500 mg PO HS 03/26/24 09/21/24 Ipratropium-Albuterol Nebulize 3 ml INHALATION RT-BID PRN 04/06/24 09/21/24 [Duoneb 0.5 mg-3 mg/3 ml Soln] Nitroglycerin Sl Tabs [Nitrostat] 0.4 mg SL Q5M PRN 04/29/24 09/21/24 Refresh Optive 0.5%-0.9% Eye Drops 1 - 2 drops BOTH EYES TID PRN 04/29/24 09/21/24 Sevelamer [Renvela] 2,400 mg PO TID-W/MEALS 04/29/24 09/21/24 Sevelamer [Renvela] 800 mg PO DAILY PRN 04/29/24 09/21/24 Ammonium Lactate Lotion 1 applic TOPICAL DAILY 07/31/24 09/21/24 [Lac-Hydrin 12% Lotion] Budesonide/Formoterol Fumarate 1 puff INHALATION RT-BID 07/31/24 09/21/24 [Symbicort 160-4.5 Mcg Inhaler] Sodium Zirconium Cyclosilicate 10 gram PO DAILY 07/31/24 09/21/24 [Lokelma] Apixaban [Eliquis] 2.5 mg PO BID 08/20/24 09/21/24 Buprenorphine [Butrans 15 MCG/HR] 1 patch TRANSDERM TU 08/20/24 09/21/24 Loperamide HCl [Imodium A-D] 2 mg PO QID PRN 08/20/24 09/21/24 Midodrine [ProAmatine] 5 mg PO TID 08/20/24 09/21/24 Cough Drops (With Eucalyptus) 7.6 1 lozenge MM DIRECTED PRN 09/21/24 09/21/24 Mg Lozenge Previous Rx's Medication Instructions Recorded Atorvastatin [Lipitor] 20 mg PO HS 30 Days #30 tab 04/10/24 Gabapentin [Neurontin] 100 mg PO TID #0 05/02/24 Amiodarone [Cordarone] 200 mg PO DAILY #30 tab 08/09/24 Aspirin 81 mg PO DAILY #30 tab 08/09/24 Diltiazem Oral [Cardizem*] 60 mg PO TID #90 tab 08/09/24 Metoprolol Tartrate [Lopressor] 50 mg PO TID #90 tab 09/20/24 Allergies Allergy/AdvReac Type Severity Reaction Status Date / Time No Known Allergies Allergy Verified 09/21/24 09:45 Review of Systems ROS Statement: Those systems with pertinent positive or pertinent negative responses have been documented in the HPI. ROS Other: All systems not noted in ROS Statement are negative. Past Medical History Past Medical History: Atrial Fibrillation, Atrial Flutter, Dialysis, GERD/Reflux, Hyperlipidemia, Hypertension Additional Past Medical History / Comment(s): BPH, spinal arthritis, severe neuropathy of feet bilaterally, TBI History of Any Multi-Drug Resistant Organisms: None Reported Past Surgical History: Heart Catheterization, Hernia Repair Additional Past Surgical History / Comment(s): AV fistula placed Past Anesthesia/Blood Transfusion Reactions: No Reported Reaction Past Psychological History: No Psychological Hx Reported Smoking Status: Current every day smoker Past Alcohol Use History: None Reported Past Drug Use History: None Reported General Exam - General Exam Comments Initial Comments: GENERAL: Patient is well-developed and well-nourished. Patient is nontoxic and well-hydrated and is in mild distress. ENT: Neck is soft and supple. No significant lymphadenopathy is noted. Oropharynx is clear. Moist mucous membranes. Neck has full range of motion without eliciting any pain. EYES: The sclera were anicteric and conjunctiva were pink and moist. Extraocular movements were intact and pupils were equal round and reactive to light. Eyelids were unremarkable. PULMONARY: Unlabored respirations. Good breath sounds bilaterally. No audible rales rhonchi or wheezing was noted. CARDIOVASCULAR: Patient is tachycardic and has an irregular rate at 110 beats a minute ABDOMEN: Soft and nontender with normal bowel sounds. SKIN: Skin is clear with no lesions or rashes and otherwise unremarkable. NEUROLOGIC: Patient is alert and oriented x3. Cranial nerves II through XII are grossly intact. Motor and sensory are also intact. Normal speech, volume and content. Symmetrical smile. MUSCULOSKELETAL: Normal extremities with adequate strength and full range of motion. No lower extremity swelling or edema. No calf tenderness. LYMPHATICS: No significant lymphadenopathy is noted PSYCHIATRIC: Normal psychiatric evaluation. Limitations: no limitations Course Vital Signs 09/21/24 09/21/24 09/21/24 09:15 09:21 09:46 Temperature 98.3 F 98.1 F Pulse Rate 104 H 98 Respiratory 22 16 Rate Blood Pressure 120/76 106/78 O2 Sat by Pulse 94 L 93 L 93 L Oximetry 09/21/24 09/21/24 10:17 10:41 Temperature Pulse Rate 93 109 H Respiratory 16 16 Rate Blood Pressure 111/73 105/75 O2 Sat by Pulse 95 95 Oximetry Medical Decision Making - Medical Decision Making Was pt. sent in by a medical professional or institution (, [facility], [facility], urgent care, hospital, or care home...) When possible be specific @ -No Did you speak to anyone other than the patient for history (EMS, parent, family, police, friend...)? What history was obtained from this source @ -No Did you review nursing and triage notes (agree or disagree)? Why? @ -I reviewed and agree with nursing and triage notes Were old charts reviewed (outside hosp., previous admission, EMS record, old EKG, old radiological studies, urgent care reports/EKG's, care home records)? Report findings @ -No old charts were reviewed Differential Diagnosis? @ -Orthostatic hypotension, dehydration, overmedicated, septic, this is not an all-inclusive list EKG interpreted by me (3pts min.). @ -As above X-rays interpreted by me (1pt min.). @ -None done CT interpreted by me (1pt min.). @ -None done U/S interpreted by me (1pt. min.). @ -None done What testing was considered but not performed or refused? (CT, X-rays, U/S, labs)? Why? @ -None What meds were considered but not given or refused? Why? @ -None Did you discuss the management of the patient with other professionals (professionals i.e. , [facility], [facility], lab, RT, psych nurse, social studies teacher, inspector printed circuit boards, teacher, soil science technical officer, human services case manager)? Give summary @ -No Was smoking cessation discussed for >3mins.? @ -No Was critical care preformed (if so, how long)? @ -No Were there social determinants of health that impacted care today? How? (Homelessness, low income, unemployed, alcoholism, drug addiction, transportation, low edu. Level, literacy, decrease access to med. care, half-way, rehab)? @ -No Was there de-escalation of care discussed even if they declined (Discuss DNR or withdrawal of care, Hospice)? DNR status @ -No What co-morbidities impacted this encounter? (DM, HTN, Smoking, COPD, CAD, Cancer, CVA, ARF, Chemo, Hep., AIDS, mental health diagnosis, sleep apnea, morbid obesity)? @ -None Was patient admitted / discharged? Hospital course, mention meds given and route, prescriptions, significant lab abnormalities, going to OR and other pertinent info. @ -Patient received Tylenol for the headache and I went back into the room he was sleeping when he woke up he stated his headache was gone. Patient's blood pressure has been stable throughout the course patient was given his diltiazem p.m. Eliquis and amiodarone here at the hospital because he did not take his morning doses. Patient stated he felt back to his baseline and would like to be discharged home. Patient was also given Zofran for his nausea and he was no longer nauseous Undiagnosed new problem with uncertain prognosis? @ -No Drug Therapy requiring intensive monitoring for toxicity (Heparin, Nitro, Insulin, Cardizem)? @ -No Were any procedures done? @ -No Diagnosis/symptom? @ -Headache Acute, or Chronic, or Acute on Chronic? @ -Acute Uncomplicated (without systemic symptoms) or Complicated (systemic symptoms)? @ -Uncomplicated Side effects of treatment? @ -No Exacerbation, Progression, or Severe Exacerbation? @ -No Poses a threat to life or bodily function? How? (Chest pain, [place], [place], pneumonia, PE, COPD, DKA, ARF, appy, cholecystitis, CVA, Diverticulitis, Homicidal, Suicidal, threat to staff... and all critical care pts) @ -No Diagnosis/symptom? @ -Nausea Acute, or Chronic, or Acute on Chronic? @ -Acute Uncomplicated (without systemic symptoms) or Complicated (systemic symptoms)? @ -Uncomplicated Side effects of treatment? @ -None Exacerbation, Progression, or Severe Exacerbation] @ -No Poses a threat to life or bodily function? @ -No Diagnosis/symptom? @ -Transient hypotension Acute, or Chronic, or Acute on Chronic? @ -Acute Uncomplicated (without systemic symptoms) or Complicated (systemic symptoms)? @ -Complicated Side effects of treatment? @ -None Exacerbation, Progression, or Severe Exacerbation] @ -No Poses a threat to life or bodily function? @ -No - Lab Data Result diagrams: 09/21/24 09:38 09/21/24 09:38 Lab Results 09/21/24 09/21/24 Range/Units 09:38 09:38 WBC 10.38 H (4.50-10.00) 10*3/uL RBC 4.04 L (4.40-5.60) 10*6/uL Hgb 12.7 L (13.0-17.0) g/dL Hct 36.9 L (39.6-50.0) % MCV 91.3 (80.0-97.0) fL MCH 31.4 (27.0-32.0) pg MCHC 34.4 (32.0-37.0) g/dL Plt Count 197 (140-440) 10*3/uL MPV 10.1 (9.5-12.2) fL Immature Gran % (Auto) 0.2 % Neutrophils % 73.9 % Lymphocytes % 13.6 % Monocytes % 9.6 % Eosinophils % 1.9 % Basophils % 0.8 % Immature Gran # 0.02 (0.00-0.04) 10*3/uL Neutrophils # 7.67 (1.80-7.70) 10*3/uL Lymphocytes # 1.41 (0.90-5.00) 10*3/uL Monocytes # 1.00 (0.20-1.00) 10*3/uL Eosinophils # 0.20 (0.04-0.35) 10*3/uL Basophils # 0.08 (0.00-0.10) 10*3/uL Sodium 137 (137-145) mmol/L Potassium 4.6 (3.5-5.1) mmol/L Chloride 97 L (98-107) mmol/L Carbon Dioxide 26 (22-30) mmol/L Anion Gap 14 mmol/L BUN 39 H (9-20) mg/dL Creatinine 4.70 H (0.66-1.25) mg/dL Est GFR (CKD-EPI)AfAm 14 (>60 ml/min/1.73 sqM) Est GFR (CKD-EPI)NonAf 12 (>60 ml/min/1.73 sqM) Glucose 130 H (74-99) mg/dL Calcium 9.5 (8.4-10.2) mg/dL Magnesium 1.9 (1.6-2.3) mg/dL Total Bilirubin 0.9 (0.2-1.3) mg/dL AST 23 (17-59) U/L ALT 18 (4-49) U/L Alkaline Phosphatase 98 (38-126) U/L Total Protein 7.6 (6.3-8.2) g/dL Albumin 4.5 (3.5-5.0) g/dL Disposition Clinical Impression: History of hypotension, Headache, Nausea Disposition: HOME SELF-CARE Instructions (If sedation given, give patient instructions): Acute Nausea and Vomiting (ED) Additional Instructions: Patient should not take his morning meds because he received them here. Patient should follow-up with dialysis as previously scheduled Is patient prescribed a controlled substance at d/c from ED?: No Referrals: None,Stated [REFERRING] - 1-2 days Time of Disposition: 10:49
[2024-09-21] MEDS: ACETAMINOPHEN TAB 500 MG TAB PO STA (09:42)
[2024-09-21] MEDS: ONDANSETRON 4 MG/2 ML VIAL IVP STA (09:42)
[2024-09-21 09:44] LABS: Basophils # (A) 0.08 10*3/uL (0.00-0.10); Basophils % (A) 0.8 %; Eosinophils % (A) 1.9 %; HCT 36.9 % (39.6-50.0); HGB 12.7 g/dL (13.0-17.0); Lymphocytes # (A) 1.41 10*3/uL (0.90-5.00); Lymphocytes % (A) 13.6 %; MCH 31.4 pg (27.0-32.0); MCHC 34.4 g/dL (32.0-37.0); MCV 91.3 fL (80.0-97.0); Mean Platelet Volume 10.1 fL (9.5-12.2); Monocytes % (A) 9.6 %; Neutrophils # (A) 7.67 10*3/uL (1.80-7.70); Neutrophils % (A) 73.9 %; Platelet Count 197 10*3/uL (140-440); RBC 4.04 10*6/uL (4.40-5.60); RDW 13.5 % (11.5-14.5); WBC 10.38 10*3/uL (4.50-10.00)
[2024-09-21 09:54] LABS: ALT 18 U/L (4-49); African American GFR (CKD) 14 (>60 ml/min/1.73 sqM); Albumin 4.5 g/dL (3.5-5.0); Anion Gap 14 mmol/L; Blood Urea Nitrogen 39 mg/dL (9-20); Calcium 9.5 mg/dL (8.4-10.2); Carbon Dioxide 26 mmol/L (22-30); Chloride 97 mmol/L (98-107); Glucose 130 mg/dL (74-99); Magnesium 1.9 mg/dL (1.6-2.3); Non-African American GFR(CKD) 12 (>60 ml/min/1.73 sqM); Sodium 137 mmol/L (137-145); Total Bilirubin 0.9 mg/dL (0.2-1.3); Total Protein 7.6 g/dL (6.3-8.2)
[2024-09-21] MEDS: AMIODARONE 200 MG TAB PO STA (10:11)
[2024-09-21] MEDS: METOPROLOL TARTRATE 50 MG TAB PO STA (10:13)
--- NOTE | 2024-09-21 10:14 | XR ---
Chest, 2 view. CLINICAL INDICATION: Male, 68 years old with history of Difficulty breathing COMPARISON: 09/18/2024 TECHNIQUE: PA and lateral views the chest are obtained. FINDINGS: The lungs are clear and there is no consolidative or interstitial opacity. There is no pleural effusion or pneumothorax. There is suggestion of mild pulmonary vascular congestion. The heart is borderline normal in size. The osseous structures are intact. IMPRESSION: No change in possibly mild pulmonary vascular congestion. [facility], , 09/21/2024 10:12 AM
[2024-09-21 10:17] LABS: AST 23 U/L (17-59); Alkaline Phosphatase 98 U/L (38-126); Potassium 4.6 mmol/L (3.5-5.1)
[2024-09-21] MEDS: DILTIAZEM ORAL 60 MG TAB PO STA (10:41)
[2024-09-21] MEDS: IPRATROPIUM-ALBUTEROL 3 ML NEB INHALATION STA (10:49)
[2024-09-21 12:29] VITALS: BP 107/61; PULSE 90; RESP 18; TEMP 97.7
[2024-09-21] MEDS ORDERED: APIXABAN 2.5 MG TABLET PO SCH (21:00)
== END 2024-09-21 12:52 | disposition home or self-care (01) ==
LOC: EC 09:13
DX: I95.9 Hypotension, unspecified (principal); F17.200 Nicotine dependence, unspecified, uncomplicated; Z79.01 Long term (current) use of anticoagulants
CPT/HCPCS: 36415; 94640; 80053; 83735; 85025; 71046; 99285; 96374; J2405

== ENCOUNTER → 2024-10-22 | Outpatient (CLI) | payer OTHER ==
--- NOTE | 2024-10-22 13:31 | CTL ---
EXAMINATION TYPE: CT Low Dose Lung DATE OF EXAM: 10/22/2024 12:46 PM COMPARISON: 10/05/2023.. CLINICAL INDICATION: Male, 68 years old with history of C20 MALIGNANT NEOPLASM OF RECTUM; lung screen ing for nicotine dependence, current smoker, history of tobacco use. TECHNIQUE: Multiple axial non-contrast scans were obtained from approximately the lung apices through the upper abdomen. Coronal and sagittal reformatted images were obtained. Low dose technique was uti lized. MIP were created on a separate workstation and submitted for review. CT DLP: 67 mGycm, Automated exposure control for dose reduction was used. CT Contrast: Contrast used: None Oral contrast used: None FINDINGS: Lack of intravenous contrast and low dose technique limits the evaluation of the vascular and soft ti ssue structures. LUNGS: No evidence of pulmonary fibrosis. No evidence of focal consolidation, pneumothorax or pleural effusion. Centrilobular emphysema changes. Nodules: RUL: None. RML: None. RLL: None. RAFI: None. LLL: None. AIRWAY: Patent and unremarkable. HEART: Size within normal limits. No significant coronary artery calcifications. MEDIASTINUM: No gross evidence of adenopathy. VASCULATURE: No aortic aneurysm. MUSCULOSKELETAL: Mild disc degeneration changes are present throughout the thoracolumbar spine. SOFT TISSUES/LYMPH NODES: Mild gynecomastia changes bilaterally. LOWER NECK: No significant findings. UPPER ABDOMEN: Left renal cortical probable cyst measuring up to 3.2 cm. This is partially visualized . No follow-up recommended. IMPRESSION: 1. No clinically significant pulmonary nodules. 2. Mild emphysema. CT LUNG RAD AND CT CHEST RECOMMENDATION: Lung-Rad 2 Benign Appearance or Behavior: Continue annual sc reening with LDCT in 12 months. S Modifier (other clinically significant findings): None Recommend smoking cessation (if current smoker), or continuation of smoking cessation (if prior smoke r). Annual screening for lung cancer with low-dose computed tomography is recommended in adults ages 55 to 77 years who have a 30 pack-year smoking history and currently smoke or have quit within the pa st 15 years. Screening should be discontinued once a person has not smoked for 15 years or develops a health problem that substantially limits life expectancy or the ability or willingness to have curat veda lung surgery. Lung rads 2021 [email or web address] [email or web address], , 10/22/2024 1:29 PM
== END | disposition home or self-care (01) ==
LOC: RADCTMAIN 11:41
PROVIDERS: ATTEND Internal Medicine Hospice and Palliative Medicine
DX: Z12.2 Encounter for screening for malignant neoplasm of respiratory organs (principal); F17.210 Nicotine dependence, cigarettes, uncomplicated; J43.2 Centrilobular emphysema
CPT/HCPCS: 71271